=== PATIENT | female | born 1980 | race Caucasian/White ===

== ENCOUNTER 2019-02-21 18:38 | Emergency (ER) | payer SELFPAY ==
--- NOTE | 2019-02-21 19:54 | EDPHYS ---
Physician Documentation [facility] Name: Miriam Fried Age: 39 yrs Sex: Female : 1980 Arrival Date: 02/21/2019 Time: 18:40 Bed 28 Private MD: ED Physician Russel Alvarado HPI: 02/21 19:47 This 39 yrs old Female presents to ER via Ambulatory with complaints of Psych gs Problem. 19:47 The patient presents to the emergency department with depression, over unknown gs circumstances, psychosis, has delusions. Onset: The symptoms/episode began/occurred 1 week(s) ago. Past psychiatric history: Prior diagnosis: bipolar disorder, schizophrenia. Associated signs and symptoms: Pertinent negatives: hallucinations, homicidal ideation, suicide ideation. Associated signs and symptoms: Pertinent positives; homelessness. Severity of symptoms: At their worst the symptoms were moderate in the emergency department the symptoms are unchanged. The patient has experienced similar episodes in the past, multiple times. The patient has not recently seen a physician. 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 - Social history:: Smoking status: Patient uses tobacco products, smokes one pack cigarettes per day. - Ebola Screening: : Patient negative for fever greater than or equal to 101.5 degrees Fahrenheit, and additional compatible Ebola Virus Disease symptoms Patient denies exposure to infectious person Patient denies travel to an Ebola-affected area in the 21 days before illness onset No symptoms or risks identified at this time. ROS: 19:47 All other systems are negative. gs Exam: 19:47 Head/Face: Normocephalic, atraumatic. Eyes: Pupils equal round and reactive to light, gs extra-ocular motions intact. Lids and lashes normal. Conjunctiva and sclera are non-icteric and not injected. Cornea within normal limits. Periorbital areas with no swelling, redness, or edema. ENT: Nares patent. No nasal discharge, no septal abnormalities noted. Tympanic membranes are normal and external auditory canals are clear. Oropharynx with no redness, swelling, or masses, exudates, or evidence of obstruction, uvula midline. Mucous membranes moist. Neck: Trachea midline, no thyromegaly or masses palpated, and no cervical lymphadenopathy. Supple, full range of motion without nuchal rigidity, or vertebral point tenderness. No Meningismus. Chest/axilla: Normal chest wall appearance and motion. Nontender with no deformity. No lesions are appreciated. Cardiovascular: Regular rate and rhythm with a normal S1 and S2. No gallops, murmurs, or rubs. Normal PMI, no JVD. No pulse deficits. Respiratory: Lungs have equal breath sounds bilaterally, clear to auscultation and percussion. No rales, rhonchi or wheezes noted. No increased work of breathing, no retractions or nasal flaring. Abdomen/GI: Soft, non-tender, with normal bowel sounds. No distension or tympany. No guarding or rebound. No evidence of tenderness throughout. Back: No spinal tenderness. No costovertebral tenderness. Full range of motion. Skin: Warm, dry with normal turgor. Normal color with no rashes, no lesions, and no evidence of cellulitis. MS/ Extremity: Pulses equal, no cyanosis. Neurovascular intact. Full, normal range of motion. Neuro: Awake and alert, GCS 15, oriented to person, place, time, and situation. Cranial nerves II-XII grossly intact. Motor strength 5/5 in all extremities. Sensory grossly intact. Cerebellar exam normal. Normal gait. 19:47 Constitutional: The patient appears alert, awake. 19:47 Psych: Behavior/mood is anxious, Affect is calm, Oriented to person, place, time, Patient has no thoughts/intents to harm self or others. Judgement / Insight is impaired. Vital Signs: 19:14 BP 140 / 91; Pulse 108; Resp 16; Temp 98.3(TE); Pulse Ox 98% on R/A; Weight 61.23 kg; iw Height 5 ft. 4 in. (162.56 cm); Pain 0/10; 20:02 BP 135 / 78; Pulse 90; Resp 18; Pulse Ox 100% on R/A; Pain 0/10; mg2 19:14 Body Mass Index 23.17 (61.23 kg, 162.56 cm) iw MDM: 19:25 Patient medically screened. gs 19:47 Differential diagnosis: drug withdrawal. acute psychotic break, depression. Data reviewed: vital signs, nurses notes. Data reviewed: old medical records. Counseling: I had a detailed discussion with the patient and/or guardian regarding: the historical points, exam findings, and any diagnostic results supporting the discharge/admit diagnosis, the need for outpatient follow up, a psychiatrist, pt request med refill. Administered Medications: No medications were administered Disposition: 02/21/19 19:54 Discharged to Home. Impression: Major depressive disorder, recurrent. - Condition is Stable. - Discharge Instructions: Psychosis, Neuropsychological Examination. - Prescriptions for Klonopin 0.5 mg Oral Tablet - take 1 tablet by ORAL route every 12 hours As needed; 15 tablet. Zoloft 50 mg Oral Tablet - take 1 tablet by ORAL route once daily; 30 tablet. - Medication Reconciliation Form, Thank You Letter, Antibiotic Education, Prescription Opioid Use form. - Follow up: Private Physician; When: 2 - 3 days; Reason: Re-evaluation by your physician. Signatures: Gracia Sanz RN RN Russel Alvarado MD MD Aldo Young RN RN mg2 Corrections: (The following items were deleted from the chart) 20:04 19:54 02/21/2019 19:54 Discharged to Home. Impression: Major depressive disorder, mg2 recurrent. Condition is Stable. Forms are Medication Reconciliation Form, Thank You Letter, Antibiotic Education, Prescription Opioid Use. Follow up: Private Physician; When: 2 - 3 days; Reason: Re-evaluation by your physician.
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
[2019-02-21 20:30] VITALS: TEMP 98.3
[2019-02-21 20:32] VITALS: BP 135/78; O2SAT 100
== END 2019-02-21 20:04 | disposition home or self-care (01) ==
LOC: EDBD 18:38 → ER 18:38
DX: F33.9 Major depressive disorder, recurrent, unspecified (principal); F41.9 Anxiety disorder, unspecified; Z88.5 Allergy status to narcotic agent; F90.9 Attention-deficit hyperactivity disorder, unspecified type; F17.210 Nicotine dependence, cigarettes, uncomplicated
CPT/HCPCS: 99282

== ENCOUNTER 2019-04-12 02:14 | Emergency (ER) | payer SELFPAY ==
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
--- NOTE | 2019-04-12 02:30 | EDPHYS ---
Physician Documentation [facility] Name: Miriam Fried Age: 39 yrs Sex: Female : 1980 Arrival Date: 04/12/2019 Time: 02:15 Bed 5 Private MD: ED Physician Felipe Manning HPI: 04/12 02:16 This 39 yrs old Female presents to ER via Unassigned with complaints of ma2 Irregular Pulse. 02:16 The patient presents with a history of irregular heart beat. Onset: The ma2 symptoms/episode began/occurred gradually, 1 hour(s) ago. Duration: The patient or guardian reports a single episode. Associated signs and symptoms: Pertinent negatives: chest pain, fever, SOB, near-syncope, vertigo. Severity of symptoms: At their worst the symptoms were mild in the emergency department the symptoms have improved. The patient has experienced similar episodes in the past. 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 - Social history:: Patient/guardian denies using alcohol, street drugs, The patient lives [facility]. Smoking status: Patient uses tobacco products, smokes one-half pack cigarettes per day. - Ebola Screening: : Patient negative for fever greater than or equal to 101.5 degrees Fahrenheit, and additional compatible Ebola Virus Disease symptoms Patient denies exposure to infectious person Patient denies travel to an Ebola-affected area in the 21 days before illness onset No symptoms or risks identified at this time. ROS: 02:16 Constitutional: Negative for fever, chills, and weight loss. ma2 02:16 Cardiovascular: Positive for palpitations, Negative for chest pain, edema, orthopnea. 02:16 All other systems are negative. Exam: 02:16 Constitutional: This is a well developed, well nourished patient who is awake, alert, ma2 and in no acute distress. Head/Face: Normocephalic, atraumatic. Neck: Trachea midline, no thyromegaly or masses palpated, and no cervical lymphadenopathy. Supple, full range of motion without nuchal rigidity, or vertebral point tenderness. No Meningismus. Chest/axilla: Normal chest wall appearance and motion. Nontender with no deformity. No lesions are appreciated. Cardiovascular: Regular rate and rhythm with a normal S1 and S2. No gallops, murmurs, or rubs. Normal PMI, no JVD. No pulse deficits. Respiratory: Lungs have equal breath sounds bilaterally, clear to auscultation and percussion. No rales, rhonchi or wheezes noted. No increased work of breathing, no retractions or nasal flaring. Abdomen/GI: Soft, non-tender, with normal bowel sounds. No distension or tympany. No guarding or rebound. No evidence of tenderness throughout. MS/ Extremity: Pulses equal, no cyanosis. Neurovascular intact. Full, normal range of motion. Neuro: Awake and alert, GCS 15, oriented to person, place, time, and situation. Cranial nerves II-XII grossly intact. Motor strength 5/5 in all extremities. Sensory grossly intact. Cerebellar exam normal. Normal gait. Vital Signs: 02:18 BP 121 / 75; Pulse 93; Resp 16; Temp 98.1(O); Pulse Ox 98% on R/A; Weight 68.04 kg; ed1 Height 5 ft. 4 in. (162.56 cm); 02:49 BP 123 / 76; Pulse 89; Resp 16; Pulse Ox 97% on R/A; Pain 0/10; aa1 02:18 Body Mass Index 25.75 (68.04 kg, 162.56 cm) ed1 MDM: 02:15 Patient medically screened. ma2 02:16 Differential diagnosis: arrythmia, dehydration, stress disorder. Data reviewed: vital ma2 signs, nurses notes. Counseling: I had a detailed discussion with the patient and/or guardian regarding: the historical points, exam findings, and any diagnostic results supporting the discharge/admit diagnosis, the presence of at least one elevated blood pressure reading (>120/80) during this emergency department visit, the need for outpatient follow up. Response to treatment: the patient's symptoms have resolved after treatment. 04/12 02:16 Order name: EKG - Nurse/Tech; Complete Time: 02:33 ma2 Administered Medications: 02:25 Drug: Ativan 2 mg Route: PO; aa1 02:49 Follow up: Response: No adverse reaction; Medication administered at discharge. aa1 02:36 Drug: Metoprolol 25 mg Route: PO; aa1 02:48 Follow up: Response: No adverse reaction; Medication administered at discharge. aa1 Disposition: 04/12/19 02:29 Discharged to Home. Impression: Palpitations. - Condition is Stable. - Discharge Instructions: Palpitations. - Medication Reconciliation Form, Thank You Letter, Antibiotic Education, Prescription Opioid Use form. - Follow up: Private Physician; When: Tomorrow; Reason: Continuance of care. Signatures: Huma Byrne RN RN aa1 Cherry Knox RN RN ed1 Felipe Manning MD MD ma2 Corrections: (The following items were deleted from the chart) 02:50 02:29 04/12/2019 02:29 Discharged to Home. Impression: Palpitations. Condition is aa1 Stable. Forms are Medication Reconciliation Form, Thank You Letter, Antibiotic Education, Prescription Opioid Use. Follow up: Private Physician; When: Tomorrow; Reason: Continuance of care. ma2
[2019-04-12] MEDS ORDERED: LORAZEPAM 1 MG TABLET ONE (02:34)
[2019-04-12] MEDS ORDERED: METOPROLOL TAR 25 MG TAB ONE (02:50)
[2019-04-12 08:25] VITALS: BP 123/76; O2SAT 97
[2019-04-12 08:27] VITALS: TEMP 98.1
== END 2019-04-12 02:50 | disposition home or self-care (01) ==
LOC: ER 02:14
DX: R00.2 Palpitations (principal); F41.9 Anxiety disorder, unspecified; F32.9 Major depressive disorder, single episode, unspecified; F90.9 Attention-deficit hyperactivity disorder, unspecified type; F17.210 Nicotine dependence, cigarettes, uncomplicated
CPT/HCPCS: 99284

== ENCOUNTER 2019-04-12 05:10 | Emergency (ER) | payer SELFPAY ==
[2019-04-12 07:51] LABS: Absolute Lymphocytes (CBC) 2.3 K/uL (0.7-4.9); Absolute Monocytes 0.6 K/uL (0.1-1.3); Absolute Neutrophil 5.8 K/uL (1.8-8.0); Basophils % 0.5 % (0-1.3); Eosinophils % 4.2 % (0-4.4); Hematocrit 34.9 % (36.0-45.0); Lymphocytes % 25.3 % (15.3-44.8); Monocytes % 6.6 % (3.3-12.3); RBC Red Blood Cell Count 3.79 M/uL (3.86-4.86)
[2019-04-12 08:03] LABS: Protime INR 0.92
[2019-04-12 08:12] LABS: ALT/SGPT 18 U/L (12-78); AST/SGOT 14 U/L (15-37); Albumin 3.6 g/dL (3.4-5.0); Alkaline Phosphatase 86 U/L (45-117); BUN Blood Urea Nitrogen 12 mg/dL (7-18); Bicarbonate 28 mmol/L (21-32); Bilirubin Direct < 0.1 mg/dL (0-0.2); Bilirubin Total 0.2 mg/dL (0.2-1.0); Glucose Level 100 mg/dL (74-106); Potassium 3.6 mmol/L (3.5-5.1); Protein, Total 6.8 g/dL (6.4-8.2); Sodium Level 141 mmol/L (136-145)
[2019-04-12] MEDS ORDERED: ZIPRASIDONE MESYLA 20 MG/VIAL IM ONE ×2 (09:24→09:29)
[2019-04-12] MEDS ORDERED: WATER FOR INJ,STERILE 0 ML ONE (09:29)
--- NOTE | 2019-04-12 12:04 | EKG ---
Test Date: 2019-04-12 Test Time: 02:25:48 Enforcement Officer: GABRIELLE MEASUREMENT RESULTS: Intervals: Rate: 94 UT: 132 QRSD: 76 QT: 370 QTc: 462 [place]: P: 76 UT: 132 QRS: 65 T: 46 INTERPRETIVE STATEMENTS: Normal sinus rhythm Septal infarct, age undetermined Abnormal ECG Compared to ECG 09/15/2011 13:48:15 Myocardial infarct finding now present Short UT interval no longer present Electronically Signed On 04-12-19 12:02:24 CDT by Steven Oh
[2019-04-12] MEDS ORDERED: LORAZEPAM 1 MG TABLET ONE (17:27)
--- NOTE | 2019-04-12 19:57 | EDPHYS ---
Physician Documentation [facility] Name: Miriam Fried Age: 39 yrs Sex: Female : 1980 Arrival Date: 04/12/2019 Time: 05:20 Bed 14 Private MD: ED Physician Myles Jalloh HPI: 04/12 05:22 This 39 yrs old Female presents to ER via Unassigned with complaints of ma2 suicidal ideation. 05:22 Onset: The symptoms/episode began/occurred suddenly, 1 hour(s) ago. Severity of ma2 symptoms: At their worst the symptoms were mild in the emergency department the symptoms are unchanged. The patient has not experienced similar symptoms in the past. patient was arrested today by police and was in er 30 mi ago for palpitation and vertigo was treated for that and discharged, she stated before being released that she is suicidal now, i send her back to custodial to be evaluated by custodial psychiatrist however she was returned back by police who states there is no custodial psychiatrist available at this time and they can not take her back.. patient has passive si, started 10 min while in the er during her earlier visit after i told her she is being discharged. she states she has been diagnosed with schizoaffective disorder, no si in past no plan no gun at home . 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 - Social history:: Patient/guardian denies using alcohol, street drugs, The patient lives Smoking status: Patient uses tobacco products, smokes one pack cigarettes per day. - Family history:: not pertinent. - Ebola Screening: : No symptoms or risks identified at this time. ROS: 05:22 Constitutional: Negative for fever, chills, and weight loss, Cardiovascular: Negative ma2 for chest pain, palpitations, and edema. 05:22 Psych: Positive for anxiety, suicidal ideation, Negative for alcohol dependence, visual hallucinations, homicidal ideation. 05:22 All other systems are negative. Exam: 05:22 Constitutional: This is a well developed, well nourished patient who is awake, alert, ma2 and in no acute distress. Chest/axilla: Normal chest wall appearance and motion. Nontender with no deformity. No lesions are appreciated. Cardiovascular: Regular rate and rhythm with a normal S1 and S2. No gallops, murmurs, or rubs. Normal PMI, no JVD. No pulse deficits. Respiratory: Lungs have equal breath sounds bilaterally, clear to auscultation and percussion. No rales, rhonchi or wheezes noted. No increased work of breathing, no retractions or nasal flaring. Abdomen/GI: Soft, non-tender, with normal bowel sounds. No distension or tympany. No guarding or rebound. No evidence of tenderness throughout. Skin: Warm, dry with normal turgor. Normal color with no rashes, no lesions, and no evidence of cellulitis. MS/ Extremity: Pulses equal, no cyanosis. Neurovascular intact. Full, normal range of motion. Neuro: Awake and alert, GCS 15, oriented to person, place, time, and situation. Cranial nerves II-XII grossly intact. Motor strength 5/5 in all extremities. Sensory grossly intact. Cerebellar exam normal. Normal gait. Psych: Awake, alert, with orientation to person, place and time. Behavior, mood, and affect are within normal limits. 19:55 Psych: Behavior/mood is pleasant, cooperative, Affect is calm, Oriented to person, deisy place, time, Patient has no thoughts/intents to harm self or others. Judgement / Insight is normal. Memory is normal. Delusions/hallucinations not suicidal , not homicidal, . Vital Signs: 05:10 BP 113 / 61; Pulse 78; Resp 18; Temp 97.7; Pulse Ox 100% on R/A; Weight 68.04 kg; ea Height 5 ft. 4 in. (162.56 cm); Pain 0/10; 09:00 BP 124 / 63; Pulse 72; Resp 18; Temp 97.6(O); Pulse Ox 99% on R/A; kj1 15:00 BP 127 / 75; Pulse 81; Resp 16; Temp 97.8(TE); Pulse Ox 99% on R/A; Pain 0/10; dh3 19:00 BP 125 / 72; Pulse 75; Resp 16; Temp 97.9; Pulse Ox 99% ; Pain 0/10; jp3 05:10 Body Mass Index 25.75 (68.04 kg, 162.56 cm) ea MDM: 05:21 Patient medically screened. ma2 05:22 Differential Diagnosis passive SI. Data reviewed: vital signs, nurses notes. ma2 Counseling: I had a detailed discussion with the patient and/or guardian regarding: the historical points, exam findings, and any diagnostic results supporting the discharge/admit diagnosis, the presence of at least one elevated blood pressure reading (>120/80) during this emergency department visit. 04/12 05:22 Order name: Acetaminophen [facility] 04/12 05:22 Order name: Basic Metabolic Panel [facility] 04/12 05:22 Order name: CBC with Diff; Complete Time: 19:54 [facility] 04/12 05:22 Order name: ETOH Level; Complete Time: 19:54 in2 04/12 05:22 Order name: Hepatic Function; Complete Time: 19:54 [facility] 04/12 05:22 Order name: PT-INR; Complete Time: 19:54 in2 04/12 05:22 Order name: Ptt, Activated; Complete Time: 19:54 in2 04/12 05:22 Order name: Salicylate; Complete Time: 19:54 [facility] 04/12 05:24 Order name: Acetaminophen Level; Complete Time: 19:54 EDFL 04/12 05:25 Order name: Basic Metabolic Panel; Complete Time: 09:08 EDMS 04/12 09:08 Interpretation: Normal except: CL 108; CRE 0.54. tw4 04/12 05:22 Order name: EKG; Complete Time: 05:25 in2 04/12 05:22 Order name: IV Saline Lock; Complete Time: 07:36 ma2 04/12 05:22 Order name: Labs collected and sent; Complete Time: 07:36 in2 04/12 07:33 Order name: Diet Finger Food; Complete Time: 07:34 kj1 Administered Medications: 09:15 Not Given (Patient Refused): Effexor XR 30 mg PO once iw 09:31 Drug: Geodon 20 mg Route: IM; Site: right deltoid; iw 09:55 Follow up: Response: No adverse reaction; Anxiety decreased rb1 09:33 Not Given (Duplicate Order): Geodon 10 mg IM once iw 17:13 Drug: Ativan 1 mg Route: PO; rb1 18:00 Follow up: Response: No adverse reaction; Anxiety decreased rb1 Disposition: 04/12/19 19:56 Discharged to Home. Impression: Anxiety disorder, unspecified. - Condition is Stable. - Discharge Instructions: Generalized Anxiety Disorder. - Medication Reconciliation Form, Thank You Letter, Antibiotic Education, Prescription Opioid Use form. - Follow up: Private Physician; When: 2 - 3 days; Reason: Recheck today's complaints, Continuance of care, Re-evaluation by your physician. - Problem is new. - Symptoms have improved. Signatures: Dispatcher [employer] [facility] Myles Jalloh MD MD cha Williams, Irene, RN RN iw Luke, MARY Vela RN rb1 Erik Moreno RN RN jb4 Katarzyna Morton RN RN ea Alzahri, Mohammad, MD MD ma2 Branden Small MD MD tw4 Corrections: (The following items were deleted from the chart) 20:01 05:25 URINE DRUG SCREEN+CHEM UR.LAB.BRZ ordered. [facility] 20:13 19:56 04/12/2019 19:56 Discharged to Home. Impression: Anxiety disorder, unspecified. jb4 Condition is Stable. Discharge Instructions: Generalized Anxiety Disorder. Forms are Medication Reconciliation Form, Thank You Letter, Antibiotic Education, Prescription Opioid Use. Follow up: Private Physician; When: 2 - 3 days; Reason: Recheck today's complaints, Continuance of care, Re-evaluation by your physician. Problem is new. Symptoms have improved. deisy
--- NOTE | 2019-04-12 19:57 | ER ---
Nurse's Notes [facility] Name: Miriam Fried Age: 39 yrs Sex: Female : 1980 Arrival Date: 04/12/2019 Time: 05:20 Bed 14 Private MD: Diagnosis: Anxiety disorder, unspecified Presentation: 04/12 05:10 Presenting complaint: Patient states: Pt brought in by PD. Pt reports she has been ea hearing voices, feels anxious and feels like she wants to hurt herself. Transition of care: patient was not received from another setting of care. Onset of symptoms was April 12, 2019. Risk Assessment: Do you want to hurt yourself or someone else? Patient reports no desire to harm self or others. Initial Sepsis Screen: Does the patient meet any 2 criteria? No. Patient's initial sepsis screen is negative. Does the patient have a suspected source of infection? No. Patient's initial sepsis screen is negative. Care prior to arrival: None. 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 - Social history:: Patient/guardian denies using alcohol, street drugs, The patient lives Smoking status: Patient uses tobacco products, smokes one pack cigarettes per day. - Family history:: not pertinent. - Ebola Screening: : No symptoms or risks identified at this time. Screenin:23 Abuse screen: Denies threats or abuse. Nutritional screening: No deficits noted. ea Tuberculosis screening: No symptoms or risk factors identified. Fall Risk None identified. Assessment: 05:10 General: Appears in no apparent distress. Behavior is calm, cooperative, appropriate ea for age. Pain: Denies pain. Neuro: Level of Consciousness is awake, alert, obeys commands, Oriented to person, place, time, situation. Cardiovascular: Patient's skin is warm and dry. Respiratory: Airway is patent Respiratory effort is even, unlabored, Respiratory pattern is regular, symmetrical. GI: Abdomen is non-distended. Derm: Skin is pink, warm \\T\\ dry. Musculoskeletal: Circulation, motion, and sensation intact. 05:18 Reassessment: Pt attempting to walk to other pt's room, attempts to redirect pt to room ea failed, pt refusing to stay in room. Charge nurse notified. Pt returned to room. 05:19 Reassessment: Pt screaming at staff, refusing to keep gown on "I need to go outside I ea need a fucking cigarette, my mother is going to bring me keys and I need to go out". PD at bedside redirected pt to room. 05:45 Reassessment: Pt yelling at staff, refusing to stay in the room. "I am not staying in ea this fucking room!" PD at bedside, pt yelling at PD. 06:09 Reassessment: Patient and/or family updated on plan of care and expected duration. Pain ea level reassessed. Pt resting on stretcher. Respirations even and unlabored. Chest expansions even and symmetrical. 06:14 Reassessment: Patient and/or family updated on plan of care and expected duration. Pain ea level reassessed. Provider at bedside speaking to pt. 06:30 Reassessment: Patient and/or family updated on plan of care and expected duration. Pain ea level reassessed. Pt agreed to medical care, [place] [employer] left, reported if their assistance was needed to call. 07:06 General: Appears in no apparent distress. comfortable, Behavior is calm. Pain: Denies rb1 pain. Neuro: Level of Consciousness is awake, alert, obeys commands, Oriented to person, place, time, situation. Cardiovascular: Capillary refill < 3 seconds is brisk in bilateral fingers. Respiratory: Airway is patent Respiratory effort is even, unlabored, Respiratory pattern is regular, symmetrical. GI: No signs and/or symptoms were reported involving the gastrointestinal system. : No signs and/or symptoms were reported regarding the genitourinary system. Derm: Skin is pink, warm \\T\\ dry. Musculoskeletal: Range of motion: intact in all extremities. 07:20 Reassessment: Pt. is getting agitated and demanding to go smoke and is threatening to rb1 leave. Provider notified. 07:45 Reassessment: Pt. denies being suicidal. She stated, "I'm not really suicidal, I just rb1 said that at the half-way because I didn't want to go in the cell. My friend over there. I have a history of A-fib and I'm afraid that they won't check to make sure I'm ok if I'm in half-way." Dr. Small spoke with the pt. and explained that she is not allowed to leave at this time because she is being detained by the police department and they brought her here. It was explained to the pt. that if she tries to leave we're required to call the police and she will be arrested. Pt. verbalized understanding. 08:02 Reassessment: [facility] is at the pt. bedside. rb1 08:44 Reassessment: Called dietary for an update on pt. breakfast tray, they were working on rb1 four trays and they will be here in a little bit. 09:10 Reassessment: Pt. refused the Geodon and the Effexor. She stated, "I'm not taking rb1 either of them. I want to go home." Provider notified. 10:00 Reassessment: Patient appears in no apparent distress at this time. Pt. is resting with rb1 eyes closed, respirations even, unlabored. Bed in low, locked position. Sitter at bedside. 11:00 Reassessment: Patient appears in no apparent distress at this time. Pt. is resting with rb1 eyes closed, respirations even, unlabored. Pt. responds when spoken to. 12:00 Reassessment: Patient appears in no apparent distress at this time. No changes from rb1 previously documented assessment. 13:00 Reassessment: Patient appears in no apparent distress at this time. Pt. is still rb1 resting with eyes, closed. Respirations even, unlabored. Pt. is repositioning herself unassisted. 14:00 Reassessment: Patient appears in no apparent distress at this time. No changes from rb1 previously documented assessment. sitter continues to remain at bedside. 15:00 Reassessment: Patient appears in no apparent distress at this time. Pt. woke up and is rb1 currently eating at the bedside. 15:12 Reassessment: Pt. is requesting to go home. I spoke with the pt. and explained that we rb1 were not able to discharge her at this time because we believe that she may be a danger to herself and if she tried to leave that we are required to call the police because she has a warrant. Pt. verbalized understanding, behavior is calm and cooperative at this time. She requested to have her phone back so she could call work, provider notified. 16:12 Reassessment: Patient appears in no apparent distress at this time. Pt. is resting with rb1 eyes closed, respirations even, unlabored. Bed in low, locked position. 17:10 Reassessment: Patient appears in no apparent distress at this time. Patient and/or rb1 family updated on plan of care and expected duration. Pain level reassessed. Patient is alert, oriented x 3, equal unlabored respirations, skin warm/dry/pink. Patient denies pain at this time. 18:10 Reassessment: Patient appears in no apparent distress at this time. No changes from rb1 previously documented assessment. 19:00 Reassessment: Patient appears in no apparent distress at this time. Patient and/or jb4 family updated on plan of care and expected duration. Pain level reassessed. PT is resting in bed with eyes closed respirations even and unlabored. General: Appears in no apparent distress. comfortable. 19:49 Reassessment: Provider is at the bedside. jb4 20:10 Reassessment: Patient appears in no apparent distress at this time. Patient and/or jb4 family updated on plan of care and expected duration. Pain level reassessed. Patient is alert, oriented x 3, equal unlabored respirations, skin warm/dry/pink. Pt discharged home, denies wanting to harm herself or others. Asked to wait in ED room until ride arrived, pt refused. Psych: 07:06 Safety Checks: Personal items have been removed. Door is open. No visitors are present rb1 at this time. 07:06 Subjective: Patient's mood is calm. Objective: Patient is cooperative, Speech is rb1 normal, Affect is appropriate. Interventions: Removed personal items and placed in bag. Patient placed in hospital gown. Belonging list filled out. Suicide Risk Assessment: Sad Person Scale: Sex of patient: Female: Score 0 points. Age of patient: Score 0 point if patient falls outside of specified age parameters. Depression: Score 0 point if signs of depression are not present. Previous Attempt: Score 0 point if patient has not previously attempted suicide. Substance Abuse: Score 0 point if patient does not abuse alcohol or drugs. Rational Thinking: Score 1 point if patient is lacking rational thinking. Social Support: Score 1 point if social support is lacking and/or unavailable. Organized Plan: Score 0 if patient did not have an organized plan in place. Relationship: Score 1 point if patient is , , , or for a single male Chronic Sickness: Score 1 point if patient has illness, chronic, debilitating, or severe. TOTAL POINTS: If total points are 3-4, proposed clinical action is close follow-up/consider hospitalization. Pt denies substance abuse. Commitment: Patient will be an involuntary commitment. Vital Signs: 05:10 BP 113 / 61; Pulse 78; Resp 18; Temp 97.7; Pulse Ox 100% on R/A; Weight 68.04 kg; ea Height 5 ft. 4 in. (162.56 cm); Pain 0/10; 09:00 BP 124 / 63; Pulse 72; Resp 18; Temp 97.6(O); Pulse Ox 99% on R/A; kj1 15:00 BP 127 / 75; Pulse 81; Resp 16; Temp 97.8(TE); Pulse Ox 99% on R/A; Pain 0/10; dh3 19:00 BP 125 / 72; Pulse 75; Resp 16; Temp 97.9; Pulse Ox 99% ; Pain 0/10; jp3 05:10 Body Mass Index 25.75 (68.04 kg, 162.56 cm) ea ED Course: 05:10 Patient has correct armband on for positive identification. Placed in gown. Bed in low ea position. Call light in reach. Valuables inventory done. given to security. Personal items removed. 05:10 Arm band placed on right wrist. Patient placed in an exam room, on a stretcher. ea 05:15 Safety checks: Items removed: yes. Door open/sign placed on door: yes. Family/friend ag4 present: no. Sitter present: Yes. 05:20 Patient arrived in ED. ea 05:21 Felipe Manning MD is Attending Physician. ma2 05:30 Safety checks: Items removed: yes. Door open/sign placed on door: yes. Family/friend ag4 present: no. Sitter present: Yes. 05:44 Katarzyna Morton RN is Primary Nurse. ea 05:45 Safety checks: Items removed: yes. Door open/sign placed on door: yes. Family/friend ag4 present: no. Sitter present: Yes. 05:55 Triage completed. ea 06:00 Safety checks: Items removed: yes. Door open/sign placed on door: yes. Family/friend ag4 present: no. Sitter present: Yes. 06:15 Safety checks: Items removed: yes. Door open/sign placed on door: yes. Family/friend ag4 present: no. Sitter present: Yes. 06:15 Safety checks: Items removed:. ag4 06:30 Safety checks: Items removed: yes. Door open/sign placed on door: yes. Family/friend ag4 present: no. Sitter present: Yes. 06:45 Safety checks: Items removed: yes. Door open/sign placed on door: yes. Family/friend ag4 present: no. Sitter present: Yes. 07:00 Safety checks: Items removed: yes. Door open/sign placed on door: yes. Family/friend kj1 present: no. Sitter present: Yes. 07:05 Report given to Mirian HERNANDEZ. ea 07:15 Safety checks: Items removed: yes. Door open/sign placed on door: yes. Family/friend kj1 present: no. Sitter present: Yes. 07:30 Safety checks: Items removed: yes. Door open/sign placed on door: yes. Family/friend kj1 present: no. Sitter present: Yes. 07:45 Safety checks: Items removed: yes. Door open/sign placed on door: yes. Family/friend kj1 present: no. Sitter present: Yes. 08:00 Safety Checks: Personal items have been removed. The door is open or patient has been rb1 placed in a hallway bed/chair. Sitter present at this time. 08:00 Safety checks: Items removed: yes. Door open/sign placed on door: yes. Family/friend kj1 present: no. Sitter present: Yes. 08:15 Safety checks: Items removed: yes. Door open/sign placed on door: yes. Family/friend kj1 present: no. Sitter present: Yes. 08:30 Safety checks: Items removed: yes. Door open/sign placed on door: yes. Family/friend kj1 present: no. Sitter present: Yes. 08:45 Safety checks: Items removed: yes. Door open/sign placed on door: yes. Family/friend kj1 present: no. Sitter present: Yes. 09:00 Safety checks: Items removed: yes. Door open/sign placed on door: yes. Family/friend kj1 present: no. Sitter present: Yes. 09:06 Attending Physician role handed off by Felipe Manning MD tw4 09:06 Branden Small MD is Attending Physician. tw4 09:15 Safety checks: Items removed: yes. Door open/sign placed on door: yes. Family/friend kj1 present: no. Sitter present: Yes. 09:30 Safety checks: Items removed: yes. Door open/sign placed on door: yes. Family/friend kj1 present: no. Sitter present: Yes. 09:45 Safety checks: Items removed: yes. Door open/sign placed on door: yes. Family/friend kj1 present: no. Sitter present: Yes. 10:00 Safety checks: Items removed: yes. Door open/sign placed on door: yes. Family/friend kj1 present: no. Sitter present: Yes. 10:15 Safety checks: Items removed: yes. Door open/sign placed on door: yes. Family/friend kj1 present: no. Sitter present: Yes. 10:30 Safety checks: Items removed: yes. Door open/sign placed on door: yes. Family/friend kj1 present: yes. no. Sitter present: Yes. 10:45 Safety checks: Items removed: yes. Door open/sign placed on door: yes. Family/friend kj1 present: no. Sitter present: Yes. 11:00 Safety checks: Items removed: yes. Door open/sign placed on door: yes. Family/friend kj1 present: no. Sitter present: Yes. 11:15 Safety checks: Items removed: yes. Door open/sign placed on door: yes. Family/friend dh3 present: no. Sitter present: Yes. 11:30 Safety checks: Items removed: yes. Door open/sign placed on door: yes. Family/friend dh3 present: no. Sitter present: Yes. 11:45 Safety checks: Items removed: yes. Door open/sign placed on door: yes. Family/friend dh3 present: no. Sitter present: Yes. 12:00 Safety checks: Items removed: yes. Door open/sign placed on door: yes. Family/friend dh3 present: no. Sitter present: Yes. 12:15 Safety checks: Items removed: yes. Door open/sign placed on door: yes. Family/friend dh3 present: no. Sitter present: Yes. 12:30 Safety checks: Items removed: yes. Door open/sign placed on door: yes. Family/friend kj1 present: no. Sitter present: Yes. 12:45 Safety checks: Items removed: yes. Door open/sign placed on door: yes. Family/friend dh3 present: no. Sitter present: Yes. 13:00 Safety checks: Items removed: yes. Door open/sign placed on door: yes. Family/friend dh3 present: no. Sitter present: Yes. 13:15 Safety checks: Items removed: yes. Door open/sign placed on door: yes. Family/friend dh3 present: no. Sitter present: Yes. 13:30 Safety checks: Items removed: yes. Door open/sign placed on door: yes. Family/friend dh3 present: no. Sitter present: Yes. 13:45 Safety checks: Items removed: yes. Door open/sign placed on door: yes. Family/friend dh3 present: no. Sitter present: Yes. 14:00 Safety checks: Items removed: yes. Door open/sign placed on door: yes. Family/friend dh3 present: no. Sitter present: Yes. 14:15 Safety checks: Items removed: yes. Door open/sign placed on door: yes. Family/friend dh3 present: no. Sitter present: Yes. 14:30 Safety checks: Items removed: yes. Door open/sign placed on door: yes. Family/friend dh3 present: no. Sitter present: Yes. 14:45 Safety checks: Items removed: yes. Door open/sign placed on door: yes. Family/friend dh3 present: no. Sitter present: Yes. 14:53 faxed chart to [facility], [facility], [facility], [facility] and [facility]. 14:56 talked to [facility], pt is on waiting list, [facility] beds are full for the bd day, possible discharges tomorrow. 15:00 Safety checks: Items removed: yes. Door open/sign placed on door: yes. Family/friend dh3 present: no. Sitter present: Yes. 15:15 Safety checks: Items removed: yes. Door open/sign placed on door: yes. Family/friend dh3 present: no. Sitter present: Yes. 15:30 Safety checks: Items removed: yes. Door open/sign placed on door: yes. Family/friend dh3 present: no. Sitter present: Yes. 15:45 Safety checks: Items removed: yes. Door open/sign placed on door: yes. Family/friend dh3 present: no. Sitter present: Yes. 16:00 Safety checks: Items removed: yes. Door open/sign placed on door: yes. Family/friend dh3 present: no. Sitter present: Yes. 16:15 Safety checks: Items removed: yes. Door open/sign placed on door: yes. Family/friend jp3 present: no. Sitter present: Yes. 16:30 Safety checks: Items removed: yes. Door open/sign placed on door: yes. Family/friend jp3 present: no. Sitter present: Yes. 16:45 Safety checks: Items removed: yes. Door open/sign placed on door: yes. Family/friend jp3 present: no. Sitter present: Yes. 17:00 Safety checks: Items removed: yes. Door open/sign placed on door: yes. Family/friend jp3 present: no. Sitter present: Yes. 17:15 Safety checks: Items removed: yes. Door open/sign placed on door: yes. Family/friend jp3 present: no. Sitter present: Yes. 17:30 Safety checks: Items removed: yes. Door open/sign placed on door: yes. Family/friend jp3 present: no. Sitter present: Yes. 17:45 Safety checks: Items removed: yes. Door open/sign placed on door: yes. Family/friend jp3 present: no. Sitter present: Yes. Warm blanket given. Pillow given. Diet tray given. Diet: Patient given a regular meal tray. Patient given water. Tolerated poorly. 18:00 Safety Checks: Personal items have been removed. The door is open or patient has been rb1 placed in a hallway bed/chair. There are no family/friend visitors at this time Sitter present at this time. 18:00 Safety checks: Items removed: yes. Door open/sign placed on door: yes. Family/friend jp3 present: no. Sitter present: Yes. 18:03 Lights dimmed. patient washedoff with bath wipes. fresh gown given . jp3 18:15 Safety Checks: Personal items have been removed. The door is open or patient has been rb1 placed in a hallway bed/chair. There are no family/friend visitors at this time Sitter present at this time. 18:15 Safety checks: Items removed: yes. Door open/sign placed on door: yes. Family/friend jp3 present: no. Sitter present: Yes. 18:30 Safety checks: Items removed: yes. Door open/sign placed on door: yes. Family/friend jp3 present: no. Sitter present: Yes. 18:45 Safety checks: Items removed: yes. Door open/sign placed on door: yes. Family/friend jp3 present: no. Sitter present: Yes. 19:00 Safety checks: Items removed: yes. Door open/sign placed on door: yes. Family/friend jp3 present: no. Sitter present: Yes. 19:00 Report given to MARY Madera. rb1 19:15 Safety checks: Items removed: yes. Door open/sign placed on door: yes. Family/friend jp3 present: no. Sitter present: Yes. 19:30 Safety checks: Items removed: yes. Door open/sign placed on door: yes. Family/friend jp3 present: no. Sitter present: Yes. 19:45 Safety Checks: Personal items have been removed. The door is open or patient has been jb4 placed in a hallway bed/chair. There are no family/friend visitors at this time Sitter present at this time. 19:53 Attending Physician role handed off by Branden Small MD cha 19:53 Myles Jalloh MD is Attending Physician. [facility] 20:10 No provider procedures requiring assistance completed. Patient did not have IV access jb4 during this emergency room visit. Administered Medications: 09:15 Not Given (Patient Refused): Effexor XR 30 mg PO once iw 09:31 Drug: Geodon 20 mg Route: IM; Site: right deltoid; iw 09:55 Follow up: Response: No adverse reaction; Anxiety decreased rb1 09:33 Not Given (Duplicate Order): Geodon 10 mg IM once iw 17:13 Drug: Ativan 1 mg Route: PO; rb1 18:00 Follow up: Response: No adverse reaction; Anxiety decreased rb1 Outcome: 19:56 Discharge ordered by . deisy 20:10 Discharged to home ambulatory, with friend. jb4 20:10 Condition: stable 20:10 Discharge instructions given to patient, Instructed on discharge instructions, follow up and referral plans. Demonstrated understanding of instructions, follow-up care. 20:13 Patient left the ED. jb4 Signatures: Lily Gutierrez Corey, MD MD cha Williams, Irene RN MARY Mirian Butler, RN RN Erik Yang RN RN jb4 Kathy Perera 3 Katarzyna Morton RN RN ea Alzahri, Mohammad, MD MD ma2 Wadley, Terrence, MD MD tw4 Blaine Elmore Adan ag4 Jackson, Kandis kj1 Corrections: (The following items were deleted from the chart) 06:22 06/10 05:47 Reassessment: Pt yelling at staff, refusing to stay in the room. "I am not ea staying in this fucking room!" PD at bedside, pt yelling at PD. Provider notified. ea 04/12 06:27 05:10 Presenting complaint: Patient states: Pt reports she has been hearing voices, ea feels anxious and feels like she wants to hurt herself. bronson 08:49 07:30 Safety checks: Items removed: yes. Door open/sign placed on door: yes. kj1 Family/friend present: yes. no. Sitter present: Yes. kj1 08:52 07:30 Safety checks: Items removed: yes. Door open/sign placed on door: yes. kj1 Family/friend present: yes. no. Sitter present: Yes. kj1 08:52 07:30 Safety checks: Items removed: yes. Door open/sign placed on door: yes. kj1 Family/friend present: yes. no. Sitter present: Yes. kj1 08:53 08:30 Safety checks: Items removed: yes. Door open/sign placed on door: yes. kj1 Family/friend present: yes. no. Sitter present: Yes. kj1 08:53 07:30 Safety checks: Items removed: yes. Door open/sign placed on door: yes. kj1 Family/friend present: yes. no. Sitter present: Yes. kj1 10:54 10:44 Safety checks: Items removed: yes. Door open/sign placed on door: yes. kj1 Family/friend present: no. Sitter present: Yes. kj1 15:28 15:12 Reassessment: Pt. is requesting to go home. I spoke with the pt. and explained rb1 that we were not able to discharge her at this time because we believe that she may be a danger to herself and if she tried to leave that we are required to call the police because she has a warrant. Pt. verbalized understanding. She requested to have her phone back so she could call work, provider notified. rb1 20:13 20:10 Reassessment: Patient appears in no apparent distress at this time. Patient jb4 and/or family updated on plan of care and expected duration. Pain level reassessed. Patient is alert, oriented x 3, equal unlabored respirations, skin warm/dry/pink. Pt discharged home, denies wanting to harm herself or others. jb4
[2019-04-13 01:31] VITALS: O2SAT 99
[2019-04-13 01:35] VITALS: BP 125/72; TEMP 97.9
== END 2019-04-12 20:13 | disposition home or self-care (01) ==
LOC: ER 05:10
DX: F41.9 Anxiety disorder, unspecified (principal); F32.9 Major depressive disorder, single episode, unspecified; F90.9 Attention-deficit hyperactivity disorder, unspecified type; F17.210 Nicotine dependence, cigarettes, uncomplicated; Z88.5 Allergy status to narcotic agent
CPT/HCPCS: 36415; 80048; 80076; 80320; 80329; 85025; 85610; 85730; 93005; 96372; 99291; 99292; J3486

== ENCOUNTER 2019-06-21 13:31 | Emergency (ER) | payer SELFPAY ==
--- OUTSIDE RECORDS SUMMARY | 2019-06-21 13:34 | XMS REPORT ---
:1980 [facility] Address [address] [place] [address] Dr. Krishnamurthy [address] [place] [id number] Care Team Providers Name Role Phone UNKNOWN, REFFERING Primary Care Provider Unavailable NORMA SIMONS M.D. Unavailable Unavailable Problems This patient has no known problems. Allergies, Adverse Reactions, Alerts This patient has no known allergies or adverse reactions. Medications This patient has no known medications. Results Test Description Test Time Test Comments Text Results Atomic Results Result Comments RPR, Qual 2017-12-30 14:45:00 Test Item Value Reference Range Comments RPR (test code=RPR) Non-Reactive Non-Reactive Thyroid Stimulating Hormone (TSH)2017-12-30 07:29:00 Test Item Value Reference Range Comments TSH (test code=TSH) 2.42 mIU/mL 0.270-4.200 BHCG, Serum, [id number] 07:29:00 Test Item Value Reference Range Comments B hCG, Quant (test <1 mIU/mL Weeks of Gestation Ranges code=BHCGQT) (mIU/mL)3 weeks 5.40 - 72.04 weeks 10.2 - 7085 weeks 217 - 68600 weeks 152 - 904883 weeks 4059 - 1263617 weeks 62267 - 4156668 weeks 23900 - [id number] weeks 12384 - 45874187 weeks 90340 - 62539781 weeks 35755 - 0279308 weeks 60955 - 9277408 weeks 4804 - 3588048 weeks 8240 - 9304047 weeks 9988 - 31299 Lipid [id number] 07:19:00 Test Item Value Reference Range Comments Cholesterol (test 132 mg/dL 0-200 code=CHOL) Triglycerides (test 122 mg/dL 9-200 code=TRIG) HDL (test code=HDL) 21 mg/dL 50-60 Chol/HDL (test 6.3 Ratio 0.0-4.4 code=CHOLPHDL) LDL, Calculated (test 87 0-130 (NOTE)RISK OF HEART code=LDLC) DISEASEPublished by Maltese Heart AssociationAnalyte Optimal Boderline Increased RiskCHOL <200 200-239 >240TRIG <150 150-199 >200HDL Male: >60 <40HDL Female: >60 <50LDL <100 130-159 >160LDL NEAR OPTIMAL IS 100-129 VLDL (test code=VLDL) 24 mg/dL 5-40 LDL/HDL (test code=LDLPHDL) 4 [id number] 04:24:00 Test Item Value Reference Range Comments Amphetamine (test code=AMPH) Negative Negative For diagnostic purposes only, positive results should always be assessedin conjunctionwith the patient's medical history,clinical examination and otherfindings.To fulfill legal requirements, a more specific alternate chemical methodmust be used inorder to obtain a Confirmed analytical result. GC/MS is the preferred confirmatory method. Barbiturates (test code=ARNOLD) Negative Negative Benzodiazepine (test POSITIVE Negative code=MOHINDER) Cocaine (test code=COCA) Negative Negative Methadone (test code=MTHD) Negative Negative Opiates (test code=OPIA) Negative Negative PCP (test code=PCP) Negative Negative Propoxyphene (test Negative Negative code=PROPOX) THC (test code=THC) POSITIVE Negative Urinalysis [id number] 03:47:00 Test Item Value Reference Range Comments Color (test code=COLOR) [place] Yellow,Straw,Pl yellow The value [place] originally released by [employer] on 12/30/2017 03:42 waschanged to [place] by [employer] on 12/30/2017 03:47 Clarity (test code=CLAR) Sl Cloudy Clear The value Clear originally released by [employer] on 12/30/2017 03:42 waschanged to Sl Cloudy by [employer] on 12/30/2017 03:47 Specific [place] (test 1.006 1.001-1.035 code=SPGR) pH (test code=PH) 6.5 5.0-9.0 Ketone (test code=KET) Negative mg/dL Negative Glucose (test Negative mg/dL Negative code=GLUCUR) Protein (test code=PROT) Negative mg/dL Negative Bilirubin (test Negative mg/dL Negative code=BILI) Occult Blood (test Large Negative code=UDOB) Urobilinogen (test 0.2 mg/dL 0.2-1.0 code=UROB) Nitrite (test code=NIT) Negative Negative Leuk Esterase (test Small Negative code=LEUK) Micros Exam (test Indicated code=MEXAM) Epithelial Cells (test None /LPF 0-30 code=EPI) WBC, Urine (test 0-2 /HPF 0-5 code=UWBC) RBC, Urine (test 51-100 /HPF 0-5 code=URBC) Bacteria (test code=BACT) Few /HPF Comprehensive Metabolic [id number] 01:00:00 Test Item Value Reference Range Comments Sodium (test code=NA) 139 mmol/L 135-145 Potassium (test code=K) 3.4 mmol/L 3.5-5.1 Chloride (test code=CL) 101 mmol/L 98-105 Carbon Dioxide (test 28 mmol/L 22-29 code=CO2) Glucose (test code=GLU) 102 mg/dL 70-115 Blood Urea Nitrogen 6 mg/dL 6-20 (test code=BUN) Creatinine (test 0.7 mg/dL 0.5-0.9 code=CREAT) Calcium (test code=CA) 9.4 mg/dL 8.3-10.5 Prot Total (test 6.6 g/dL 6.4-8.3 code=TP) Albumin (test code=ALB) 4.3 g/dL 3.5-5.2 A/G Ratio (test 1.9 Ratio code=AGRATIO) Globulin (test 2.3 2.9-3.1 code=GLOB) Bili Total (test <0.1 mg/dL 0.1-0.9 code=TBIL) Alk Phos (test 84 U/L 35-104 code=APHOS) AST (test code=AST) 16 U/L 1-32 ALT (test code=ALT) 11 U/L 1-33 BUN/Creatinine Ratio 8.6 (test code=BCRATIO) Anion Gap (test 10 mmol/L 7-16 code=AGAP) Estimated GFR (test >60 mL/min/1.73m2 eGFR (estimated Glomerular code=GFR) Filtration Rate) is an estimated value,calculated from the patient's serum creatinine using the MDRD equation.It is NOT the patient's actual GFR. The eGFR provides a more clinicallyuseful measure of kidney disease than serum creatinine alone.This calculation takes sex and race into account, if the informationis provided. If the race is not provided, and the patient isAfrican-Maltese, multiply by 1.212. If sex is not provided, and thepatient is female, multiply by 0.742. Results for patients <18 years ofage have not been validated by the MDRD study and should be interpretedwith caution.eGFR Result Interpretation:eGFR > or=60 is in the Normal RangeeGFR < 60 may mean kidney diseaseeGFR < 15 may mean kidney failureRanges recommended by the National Kidney Foundation,http://nkdep.nih .gov Alcohol/Ethanol, [id number] 01:00:00 Test Item Value Reference Range Comments Alcohol, Ethyl (test <0.01 g/dL 0.00-0.01 Intoxicated 0.080 g/dL or code=ETOH) more CBC with [id number] 00:45:00 Test Item Value Reference Range Comments WBC (test code=WBC) 12.0 K/cumm 4.4-10.5 RBC (test code=RBC) 4.09 M/cumm 3.75-5.20 Hemoglobin (test code=HGB) 12.4 gm/dL 12.2-14.8 Hematocrit (test code=HCT) 38.3 % 36.5-44.4 MCV (test code=MCV) 93.8 fL 80-100 MCH (test code=MCH) 30.4 pg 27.0-32.5 MCHC (test code=MCHC) 32.5 g/dL 32.0-37.5 RDW (test code=RDW) 13.4 % 11.5-14.5 Platelet Count (test code=PLTCT) 393 K/cumm 140-440 MPV (test code=MPV) 9.3 fL Diff Method (test code=DIFFM) Auto Neutrophil (test code=NEUT) 53.3 % 36-70 Lymphocyte (test code=LYMPH) 31.8 % 12-44 Monocyte (test code=MONO) 4.1 % 0-11 Eosinophil (test code=EOS) 10.3 % 0-7 Basophil (test code=BASO) 0.5 % 0-2 Neutro Abs (test code=ANEUT) 6.4 K/cumm 1.6-7.4 Lymph Abs (test code=ALYMPH) 3.8 K/cumm 0.5-4.6 [place] Abs (test code=AMONO) 0.5 K/cumm 0.0-1.2 Eos Abs (test code=AEOS) 1.24 K/cumm 0.00-0.74 Baso Abs (test code=ABASO) 0.1 K/cumm 0.00-0.21
--- OUTSIDE RECORDS SUMMARY | 2019-06-21 13:34 | XMS REPORT | Summary of Care ---
:1980 Author Organization [facility] - Health Address [address] [place] [address] Care Team Providers Name Role Phone Pcp, Patient Does Not Have A Primary Care Provider Encounter Details Date Type Department Care Team Description 06/10/2019 Orders Only [facility] Doctor Unassigned, No [address] [facility] [place] [address] [address] [place] [address] Allergies Active Allergy Reactions Severity Noted Date Comments Morphine Unknown - See comments 08/06/2011 Per patient she went into cardiac arrest after receiving morphine at the hospital March 2011 documented as of this encounter (statuses as of 06/10/2019) Medications Medication Sig Dispensed Refills Start Date End Date Status calcium carbonate Take 1 Tab by 90 Tab 1 03/14/2011 Active (OSCAL-500) 500 mg mouth 3 (three) (1,250 mg) tablet times daily with meals. ferrous sulfate 325 mg Take 1 Tab by 90 Tab 1 03/14/2011 Active (65 mg Iron) tablet mouth 3 (three) times daily with meals. nicotine (NICODERM) 21 Apply 1 Patch to 30 Patch 3 03/14/2011 Active mg/24 hr patch area(s) every 24 (twenty-four) hours. thiamine (VITAMIN B1) Take 1 Tab by 30 Tab 3 03/14/2011 Active 100 mg tablet mouth daily. vitamin w/FA Take 1 Tab by 30 Tab 3 03/14/2011 Active ( RX OR GENERIC mouth daily. EQUIVALENT) tablet FLUoxetine (PROZAC) 20 Take 1 Cap by 14 Cap 0 06/06/2011 Active mg capsule mouth daily. clonazePAM (KLONOPIN) Take 1 Tab by 45 Tab 0 06/06/2011 Active 0.5 mg tablet mouth 3 (three) times daily. magnesium oxide (MAG-OX Take 2 Tabs by 90 Tab 1 08/06/2011 Active 400) 400 mg tablet mouth 3 (three) times daily. KCL (K-DUR) 20 mEq Take 2 Tabs by 30 Tab 0 08/29/2011 Active tablet mouth daily. metoprolol tartrate Take 0.5 Tabs by 60 Tab 2 08/29/2011 Active (LOPRESSOR) 25 mg mouth 2 (two) tablet times daily. documented as of this encounter (statuses as of 06/10/2019) Active Problems Problem Noted Date Abdominal pain, epigastric 02/26/2011 documented as of this encounter (statuses as of 06/10/2019) Social History Tobacco Use Types Packs/Day Years Used Date Current Every Day Smoker Cigarettes 1 Alcohol Use Drinks/Week oz/Week Comments Yes Sex Assigned at Date Recorded Not on file Job Start Date Occupation Industry Not on file Not on file Not on file Travel History Travel Start Travel End No recent travel history available. documented as of this encounter Last Filed Vital Signs Not on filedocumented in this encounter Plan of Treatment Health Maintenance Due Date Last Done Comments VARICELLA VACCINES (1 of 2 - 1995 13+ 2-dose series) DTaP,Tdap,and Td Vaccines (1 2001 - Tdap) PAP SMEAR 03/10/2015 03/10/2012, 01/16/2009, 02/20/2005 INFLUENZA VACCINE 07/03/2019 PNEUMOCOCCAL 0-64 YEARS Aged Out No longer eligible based COMBINED SERIES on patient's age to complete this topic documented as of this encounter Procedures Procedure Name Priority Date/Time Associated Diagnosis Comments CONSENT/REFUSAL FOR Routine 06/10/2019 2:34 PM CDT DIAGNOSIS AND TREATMENT documented in this encounter Results Not on filedocumented in this encounter
--- OUTSIDE RECORDS SUMMARY | 2019-06-21 13:35 | XMS REPORT | Summary of Care ---
:1980 Author Organization [facility] - Health Address [address] [place] [address] Care Team Providers Name Role Phone Pcp, Patient Does Not Have A Primary Care Provider Reason for Visit Reason Comments Depression medication refill Auth/Cert Status Reason Specialty Diagnoses / Referred By Referred To Procedures Contact Contact Emergency Medicine Diagnoses DEPRESSION [facility] [address] [place] [address] Encounter Details Date Type Department Care Team Description 06/10/2019 Emergency [facility] Sepideh Sanz, DO [address] [place] [id number] [place] [address] [phone] Allergies Active Allergy Reactions Severity Noted Date [...] of this encounter Last Filed Vital Signs Vital Sign Reading Time Taken Comments Blood Pressure 117/66 06/10/2019 2:43 PM CDT Pulse 110 06/10/2019 2:43 PM CDT Temperature 37.1 C (98.7 F) 06/10/2019 2:43 PM CDT Respiratory Rate 18 06/10/2019 2:43 PM CDT Oxygen Saturation 97% 06/10/2019 2:43 PM CDT Inhaled Oxygen Concentration - - Weight 63.5 kg (140 lb) 06/10/2019 2:43 PM CDT Height - - Body Mass Index 24.03 02/06/2019 3:13 PM CDT documented in this encounter Discharge Instructions Sepdieh Morin DO - 06/10/2019DIAGNOSIS 1. Medication Refill NO LIFE-THREATENING FINDINGS ON TODAY'S EXAM. PROCEDURES IN THE ER TODAY: None MEDICATIONS ADMINISTERED IN THE ER TODAY: None YOUR PRESCRIPTIONS AND [id number] MEDICATION RECOMMENDATIONS: None SPECIAL CARE INSTRUCTIONS: Please follow-up with [facility] as scheduled on 07/15. Please go to the [facility] in [place] on Thursday06/13/19 by 8am. FOLLOW-UP RECOMMENDATIONS: RECOMMEND FOLLOW-UP WITH A PRIMARY CARE PROVIDER OR SPECIALIST IN 2-5 DAYS, ESPECIALLY IF NO IMPROVEMENT IN SYMPTOMS. TO FOLLOW-UP WITHIN THE [facility], TRY THESE OPTIONS (CLINIC APPOINTMENTS AVAILABLE ON SZSA-HC-BDPQ BASIS): 1. SCHEDULE AN APPOINTMENT ONLINE AT WWW.[facility] 2. OR CALL THE [facility] ACCESS CENTER AT OR 3. OR CALL YOUR [facility] PHYSICIAN'S OFFICE DIRECTLY IF YOU ARE ALREADY AN ESTABLISHED [facility] PATIENT. OR, YOU MAY FOLLOW-UP WITH A PROVIDER OF YOUR CHOICE, SUCH : 1. A PHYSICIAN OF YOUR CHOICE 2. [facility], . LOCATIONS IN [facility] 3. [facility], [address] [place] [address]; RETURN TO ER FOR WORSENING OF SYMPTOMS. AttachmentsThe following attachments cannot be sent through Care Everywhere.Depression (Bahamian)documented in this encounter Plan of Treatment Health [...] Procedure Name Priority Date/Time Associated Diagnosis Comments NOTICE OF PRIVACY Routine 06/10/2019 2:40 PM CDT PRACTICES documented in this encounter Results Not on filedocumented in this encounter
[2019-06-21] MEDS ORDERED: PROPRANOLOL HCL 40 MG TAB PO ONE (14:30)
--- NOTE | 2019-06-21 15:05 | EDPHYS ---
Physician Documentation [facility] Name: Miriam Fried Age: 39 yrs Sex: Female : 1980 Arrival Date: 06/21/2019 Time: 13:36 Bed 18 Private MD: ED Physician Zay Graves HPI: 06/21 14:04 This 39 yrs old Female presents to ER via Ambulatory with complaints of snw Anxiety. 14:04 The patient presents to the emergency department with anxiety, "a lot going on right snw now", Pt states she has a stable home environment, trying to get a job. Stopped all medications 1.5 months ago. States she has an appt with [employer] but it is not for another month. States she has tried a few beers, melatonin, and just feels she needs more to remain calm. Onset: The symptoms/episode began/occurred gradually. Past psychiatric history: Prior diagnosis: depression, Add/ADHD, Depression, Psychiatric medications include: Effexor, Xanax, metoprolol, Primary psychiatric physician: the patient's psychiatric physician is not known, the patient has not had a prior suicide gesture, the patient does not have a previous inpatient psychiatric history. Associated signs and symptoms: The patient has no apparent associated signs or symptoms. Severity of symptoms: At their worst the symptoms were moderate in the emergency department the symptoms are unchanged. The patient has experienced similar episodes in the past. It is unknown whether or not the patient has recently seen a physician. 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 - Social history:: Smoking status: . - Ebola Screening: : Patient denies travel to an Ebola-affected area in the 21 days before illness onset. ROS: 14:03 Constitutional: Negative for fever, chills, and weight loss, Eyes: Negative for injury, snw pain, redness, and discharge, ENT: Negative for injury, pain, and discharge, Neck: Negative for injury, pain, and swelling, Cardiovascular: Negative for chest pain, palpitations, and edema, Respiratory: Negative for shortness of breath, cough, wheezing, and pleuritic chest pain, Abdomen/GI: Negative for abdominal pain, nausea, vomiting, diarrhea, and constipation, Back: Negative for injury and pain, : Negative for injury, bleeding, discharge, and swelling, MS/Extremity: Negative for injury and deformity, Skin: Negative for injury, rash, and discoloration, Neuro: Negative for headache, weakness, numbness, tingling, and seizure. 14:03 Psych: Positive for anxiety. Exam: 14:03 Constitutional: This is a well developed, well nourished patient who is awake, alert, snw and in no acute distress. Head/Face: Normocephalic, atraumatic. Eyes: Pupils equal round and reactive to light, extra-ocular motions intact. Lids and lashes normal. Conjunctiva and sclera are non-icteric and not injected. Cornea within normal limits. Periorbital areas with no swelling, redness, or edema. 14:03 Neck: Trachea midline, no thyromegaly or masses palpated, and no cervical lymphadenopathy. Supple, full range of motion without nuchal rigidity, or vertebral point tenderness. No Meningismus. Chest/axilla: Normal chest wall appearance and motion. Nontender with no deformity. No lesions are appreciated. 14:03 Respiratory: Lungs have equal breath sounds bilaterally, clear to auscultation and percussion. No rales, rhonchi or wheezes noted. No increased work of breathing, no retractions or nasal flaring. Abdomen/GI: Soft, non-tender, with normal bowel sounds. No distension or tympany. No guarding or rebound. No evidence of tenderness throughout. Back: No spinal tenderness. No costovertebral tenderness. Full range of motion. Skin: Warm, dry with normal turgor. Normal color with no rashes, no lesions, and no evidence of cellulitis. MS/ Extremity: Pulses equal, no cyanosis. Neurovascular intact. Full, normal range of motion. Neuro: Awake and alert, GCS 15, oriented to person, place, time, and situation. Cranial nerves II-XII grossly intact. Motor strength 5/5 in all extremities. Sensory grossly intact. Cerebellar exam normal. Normal gait. 14:03 ENT: Mouth: mild erythema, Voice: is normal. 14:03 Cardiovascular: Rate: tachycardic, Rhythm: regular. 14:03 Psych: Behavior/mood is pleasant, cooperative, anxious, Affect is calm, Patient has no thoughts/intents to harm self or others. Vital Signs: 13:41 BP 151 / 89; Pulse 128; Resp 18; Temp 99.1(TE); Pulse Ox 100% on R/A; Weight 65.77 kg; hj Height 5 ft. 4 in. (162.56 cm); Pain 0/10; 14:53 BP 157 / 99; Pulse 95; Resp 18; Pulse Ox 100% on R/A; tw2 13:41 Body Mass Index 24.89 (65.77 kg, 162.56 cm) hj MDM: 13:57 Patient medically screened. snw 15:05 Data reviewed: vital signs, nurses notes. Data interpreted: Pulse oximetry: on room air snw is 100 %. Interpretation: normal. Counseling: I had a detailed discussion with the patient and/or guardian regarding: the historical points, exam findings, and any diagnostic results supporting the discharge/admit diagnosis, the need for outpatient follow up, to return to the emergency department if symptoms worsen or persist or if there are any questions or concerns that arise at home. Special discussion: I have referred the patient to see his PCP for further evaluation of high blood pressure. Based on the history and exam findings, there is no indication for further emergent testing or inpatient evaluation. I discussed with the patient/guardian the need to see the primary care provider for further evaluation of the symptoms. I discussed with the patient/guardian the need to see the psychiatrist for further evaluation of the symptoms. 06/21 13:56 Order name: EKG - Nurse/Tech; Complete Time: 13:56 06/21 14:09 Order name: EKG; Complete Time: 14:10 tw2 Administered Medications: 14:25 Drug: Propranolol 40 mg Route: PO; rb1 15:34 Follow up: Response: No adverse reaction tw2 15:21 Drug: XANax Tablet 0.5 mg Route: PO; tw2 15:34 Follow up: Response: No adverse reaction tw2 Disposition: 15:59 Co-signature as Attending Physician, Zay rGaves MD. rn Disposition: 06/21/19 15:03 Discharged to Home. Impression: Anxiety disorder, unspecified, Patient's unintentional underdosing of medication regimen. - Condition is Stable. - Discharge Instructions: Panic Attacks, Hypertension, Generalized Anxiety Disorder. - Prescriptions for Propranolol 20 mg Oral Tablet - take 1 tablet by ORAL route every 6 hours; 28 tablet. - Medication Reconciliation Form, Thank You Letter, Antibiotic Education, Prescription Opioid Use form. - Follow up: Private Physician; When: 2 - 3 days; Reason: Recheck today's complaints, Continuance of care, Re-evaluation by your physician. Signatures: Belkys Rodrigues, SOIL CONSERVATION TECHNICIAN-C SOIL CONSERVATION TECHNICIAN-Csnw Zay Graves MD MD rn Joaquin, Henry, RN RN Mirian Butler RN RN [facility] Josi Posada RN RN tw2 Corrections: (The following items were deleted from the chart) 15:35 15:03 06/21/2019 15:03 Discharged to Home. Impression: Anxiety disorder, unspecified; tw2 Patient's unintentional underdosing of medication regimen. Condition is Stable. Forms are Medication Reconciliation Form, Thank You Letter, Antibiotic Education, Prescription Opioid Use. Follow up: Private Physician; When: 2 - 3 days; Reason: Recheck today's complaints, Continuance of care, Re-evaluation by your physician. snw
--- NOTE | 2019-06-21 15:05 | ER ---
Nurse's Notes [facility] Name: Miriam Fried Age: 39 yrs Sex: Female : 1980 Arrival Date: 06/21/2019 Time: 13:36 Bed 18 Private MD: Diagnosis: Anxiety disorder, unspecified;Patient's unintentional underdosing of medication regimen Presentation: 06/21 13:39 Presenting complaint: Patient states: i have this severe anxiety attack that started hj last week, i have an appointment with [facility] until next month i need medicine to clam me down; denies plans of hurting self or others;denies chest pain;. Transition of care: patient was not received from another setting of care. Onset of symptoms was June 21, 2019. Risk Assessment: Do you want to hurt yourself or someone else? Patient reports no desire to harm self or others. Initial Sepsis Screen: Does the patient meet any 2 criteria? No. Patient's initial sepsis screen is negative. Does the patient have a suspected source of infection? No. Patient's initial sepsis screen is negative. Care prior to arrival: None. 13:39 Method Of Arrival: Ambulatory 13:39 Acuity: REGINA 2 hj Triage Assessment: 13:45 General: Appears in no apparent distress. Behavior is anxious. Pain: Denies pain. tw2 MANAGER SUBWAY: 15:35 LMP N/A - , tw2 Historical: - Allergies: 13:41 Morphine; hj - PMHx: 13:41 ADD/ADHD; Anxiety; Depression; - PSHx: 13:41 ; hj - Immunization history:: Adult Immunizations. - Social history:: Smoking status: . - Ebola Screening: : Patient denies travel to an Ebola-affected area in the 21 days before illness onset. Screenin:45 Abuse screen: Denies threats or abuse. Nutritional screening: No deficits noted. tw2 Tuberculosis screening: No symptoms or risk factors identified. Fall Risk None identified. Assessment: 13:44 Reassessment: pt reports "i have a lot of stuff going on right now in my life and i tw2 normally take alprazolam and i am out of it". General: Appears in no apparent distress. Behavior is agitated. Pain: Denies pain. Neuro: Level of Consciousness is awake, alert, obeys commands, Oriented to person, place, time, situation. Cardiovascular: Heart tones S1 S2 Patient's skin is warm and dry. Respiratory: Airway is patent Respiratory effort is even, unlabored, Respiratory pattern is regular, symmetrical, Breath sounds are clear bilaterally. GI: No signs and/or symptoms were reported involving the gastrointestinal system. : No signs and/or symptoms were reported regarding the genitourinary system. EENT: No signs and/or symptoms were reported regarding the EENT system. Derm: No signs and/or symptoms reported regarding the dermatologic system. Musculoskeletal: Range of motion: intact in all extremities. 14:53 Reassessment: Patient appears in no apparent distress at this time. No changes from tw2 previously documented assessment. Patient and/or family updated on plan of care and expected duration. Pain level reassessed. Patient is alert, oriented x 3, equal unlabored respirations, skin warm/dry/pink. 15:35 Reassessment: Patient appears in no apparent distress at this time. No changes from tw2 previously documented assessment. Patient and/or family updated on plan of care and expected duration. Pain level reassessed. Patient is alert, oriented x 3, equal unlabored respirations, skin warm/dry/pink. Vital Signs: 13:41 BP 151 / 89; Pulse 128; Resp 18; Temp 99.1(TE); Pulse Ox 100% on R/A; Weight 65.77 kg; hj Height 5 ft. 4 in. (162.56 cm); Pain 0/10; 14:53 BP 157 / 99; Pulse 95; Resp 18; Pulse Ox 100% on R/A; tw2 13:41 Body Mass Index 24.89 (65.77 kg, 162.56 cm) ED Course: 13:36 Patient arrived in ED. mr 13:41 Triage completed. hj 13:41 Arm band placed on right wrist. hj 13:44 Josi Posada, RN is Primary Nurse. tw2 13:45 Bed in low position. Call light in reach. Pulse ox on. NIBP on. tw2 13:56 Belkys Rodrigues FNP-C is PHCP. snw 13:56 Zay Graves MD is Attending Physician. snw 14:02 EKG done, by forestry technical officer. reviewed by aZy Graves MD. 3 15:35 No provider procedures requiring assistance completed. Patient did not have IV access tw2 during this emergency room visit. Administered Medications: 14:25 Drug: Propranolol 40 mg Route: PO; rb1 15:34 Follow up: Response: No adverse reaction tw2 15:21 Drug: XANax Tablet 0.5 mg Route: PO; tw2 15:34 Follow up: Response: No adverse reaction tw2 Outcome: 15:03 Discharge ordered by MD. mckeon 15:35 Discharged to home ambulatory. tw2 15:35 Condition: stable 15:35 Discharge instructions given to patient, Instructed on discharge instructions, follow up and referral plans. medication usage, Demonstrated understanding of instructions, follow-up care, medications, Prescriptions given X 1. 15:35 Patient left the ED. tw2 Signatures: Belkys Rodrigues, LOADING UNIT OPERATOR POWDER CHARGING-C LOADING UNIT OPERATOR POWDER CHARGING-Csnanthony RaYee mr ResendezLiborio, RN RN Mirian Butler, RN RN rb1 Josi Posada RN RN tw2 Jacki Allen 3 Corrections: (The following items were deleted from the chart) 13:43 13:39 Acuity: REGINA 3 hj hj 13:43 13:41 Pulse 128bpm; Resp 18bpm; Pulse Ox 100% RA; Temp 99.1F Temporal; 65.77 kg; Height hj 5 ft. 4 in.; BMI: 24.8; Pain 0/10; hj 13:46 13:39 Presenting complaint: Patient states: i have this severe anxiety attack that hj started last wee, i have an appointment with [facility] for next month i need medicine to clam me down; denies plans of hurting self or others; hj
[2019-06-21] MEDS ORDERED: ALPRAZOLAM 0.5 MG TABLET ONE (15:15)
[2019-06-21 15:40] VITALS: TEMP 99.1; O2SAT 100
[2019-06-21 15:42] VITALS: BP 157/99
--- NOTE | 2019-06-21 16:10 | EKG ---
Test Date: 2019-06-21 Test Time: 13:50:52 Associate Account Director: RONAK MEASUREMENT RESULTS: Intervals: Rate: 117 [place]: 146 QRSD: 76 QT: 332 QTc: 463 [place]: P: 50 [place]: 146 QRS: 40 T: 15 INTERPRETIVE STATEMENTS: Sinus tachycardia Septal infarct, age undetermined Abnormal ECG Compared to ECG 04/12/2019 02:25:48 Sinus rhythm no longer present Myocardial infarct finding still present Electronically Signed On 06-21-19 16:09:16 CDT by Steven Oh
== END 2019-06-21 15:35 | disposition home or self-care (01) ==
LOC: ER 13:31
DX: Z91.128 Patient's intentional underdosing of medication regimen for other reason (principal); F32.9 Major depressive disorder, single episode, unspecified; Z88.5 Allergy status to narcotic agent
CPT/HCPCS: 93005; 99284

== ENCOUNTER 2019-07-11 01:30 | Emergency (ER) | payer SELFPAY ==
--- OUTSIDE RECORDS SUMMARY | 2019-07-11 01:33 | XMS REPORT ---
:1980 [facility] Address [address] [place] [address] Dr. Krishnamurthy [address] [place] [id number] Care Team Providers Name Role Phone UNKNOWN, [...] (test code=TSH) 2.42 mIU/mL 0.270-4.200 BHCG, Serum, [id number] 07:29:00 Test Item Value Reference Range Comments B hCG, Quant (test <1 mIU/mL Weeks of Gestation Ranges code=BHCGQT) (mIU/mL)3 weeks 5.40 - 72.04 weeks 10.2 - 7085 weeks 217 - 91679 weeks 152 - 677222 weeks 4059 - 2605168 weeks 37221 - 5350452 weeks 11552 - [id number] weeks 44369 - 10720390 weeks 24888 - [id number] weeks 17364 - 6316414 weeks 51814 - 5979654 weeks 9904 - 6922074 weeks 8240 - 8913872 weeks 4468 - 80922 Lipid [id number] 07:19:00 Test Item Value Reference Range Comments Cholesterol (test 132 mg/dL 0-200 code=CHOL) Triglycerides (test 122 mg/dL 9-200 code=TRIG) HDL (test code=HDL) 21 mg/dL 50-60 Chol/HDL (test 6.3 Ratio 0.0-4.4 code=CHOLPHDL) LDL, Calculated (test 87 0-130 (NOTE)RISK OF HEART code=LDLC) DISEASEPublished by Guyanese Heart AssociationAnalyte Optimal Boderline Increased RiskCHOL <200 200-239 >240TRIG <150 150-199 >200HDL Male: >60 <40HDL Female: >60 <50LDL <100 130-159 >160LDL NEAR OPTIMAL IS 100-129 VLDL (test code=VLDL) 24 mg/dL 5-40 LDL/HDL (test code=LDLPHDL) 4 [id number] 04:24:00 Test Item Value Reference Range Comments [...] code=PROPOX) THC (test code=THC) POSITIVE Negative Urinalysis [id number] 03:47:00 Test Item Value Reference Range Comments Color (test code=COLOR) [place] Yellow,Straw,Pl yellow The value Clarence originally released by [employer] on 12/30/2017 03:42 waschanged to [place] by [employer] on 12/30/2017 03:47 Clarity (test code=CLAR) Sl Cloudy Clear The value Clear originally released by [employer] on 12/30/2017 03:42 waschanged to Sl Cloudy by [employer] on 12/30/2017 03:47 Specific [place] (test 1.006 1.001-1.035 code=SPGR) pH (test code=PH) [...] Bacteria (test code=BACT) Few /HPF Comprehensive Metabolic [id number] 01:00:00 Test Item Value Reference Range Comments [...] race is not provided, and the patient isAfrican-Guyanese, multiply by 1.212. If sex is not provided, and thepatient is female, multiply by 0.742. Results for patients <18 years ofage have not been validated by the MDRD study and should be interpretedwith caution.eGFR Result Interpretation:eGFR > or=60 is in the Normal RangeeGFR < 60 may mean kidney diseaseeGFR < 15 may mean kidney failureRanges recommended by the National Kidney Foundation,http://nkdep.nih .gov Alcohol/Ethanol, [id number] 01:00:00 Test Item Value Reference Range Comments Alcohol, Ethyl (test <0.01 g/dL 0.00-0.01 Intoxicated 0.080 g/dL or code=ETOH) more CBC with [id number] 00:45:00 Test Item Value Reference Range Comments [...] Lymph Abs (test code=ALYMPH) 3.8 K/cumm 0.5-4.6 Dawes Abs (test code=AMONO) 0.5 K/cumm 0.0-1.2 Eos Abs (test code=AEOS) 1.24 K/cumm 0.00-0.74 Baso Abs (test code=ABASO) 0.1 K/cumm 0.00-0.21
--- OUTSIDE RECORDS SUMMARY | 2019-07-11 01:33 | XMS REPORT | Summary of Care ---
:1980 Author Organization [facility] Address [address] [place] [id number] Care Team Providers Name Role Phone Pcp, Patient Does Not Have A Primary Care Provider Reason for Visit Reason Comments Anxiety Depression Auth/Cert Status Reason Specialty Diagnoses / Referred By Referred To Procedures Contact Contact Emergency Medicine [facility]-Emergency Dept [address] [place] [phone] Encounter Details Date Type Department Care Team Description 06/22/2019 Emergency [facility] Porter Mark MD Anxiety (Primary Dx) [address] [place] [address] [id number] [place] [address] [place], [place] [phone] Allergies Active Allergy Reactions Severity Noted Date Comments Morphine Unknown - See comments 08/06/2011 Per patient she went into cardiac arrest after receiving morphine at the hospital March 2011 documented as of this encounter (statuses as of 06/22/2019) Medications Medication Sig Dispensed Refills Start Date End Date Status calcium carbonate Take 1 Tab by 90 Tab 1 03/14/2011 Active (OSCAL-500) 500 mg mouth 3 (three) (1,250 mg) tablet times daily with meals. ferrous sulfate 325 Take 1 Tab by 90 Tab 1 03/14/2011 Active mg (65 mg Iron) mouth 3 (three) tablet times daily with meals. nicotine (NICODERM) Apply 1 Patch to 30 Patch 3 03/14/2011 Active 21 mg/24 hr patch area(s) every 24 (twenty-four) hours. thiamine (VITAMIN Take 1 Tab by 30 Tab 3 03/14/2011 Active B1) 100 mg tablet mouth daily. vitamin Take 1 Tab by 30 Tab 3 03/14/2011 Active w/FA ( RX OR mouth daily. GENERIC EQUIVALENT) tablet FLUoxetine (PROZAC) Take 1 Cap by 14 Cap 0 06/06/2011 Active 20 mg capsule mouth daily. clonazePAM Take 1 Tab by 45 Tab 0 06/06/2011 Active (KLONOPIN) 0.5 mg mouth 3 (three) tablet times daily. magnesium oxide Take 2 Tabs by 90 Tab 1 08/06/2011 Active (MAG-OX 400) 400 mg mouth 3 (three) tablet times daily. KCL (K-DUR) 20 mEq Take 2 Tabs by 30 Tab 0 08/29/2011 Active tablet mouth daily. metoprolol tartrate Take 0.5 Tabs by 60 Tab 2 08/29/2011 Active (LOPRESSOR) 25 mg mouth 2 (two) tablet times daily. gabapentin 300 mg Take 1 capsule by 60 capsule 0 06/22/2019 07/22/2019 Active capsuleIndications: mouth 2 (two) Anxiety times daily for 30 days. documented as of this encounter (statuses as of 06/22/2019) Active Problems Problem Noted Date Abdominal pain, epigastric 02/26/2011 documented as of this encounter (statuses as of 06/22/2019) Social History Tobacco Use Types Packs/Day Years [...] Sign Reading Time Taken Comments Blood Pressure 146/89 06/22/2019 9:08 PM CDT Pulse 130 06/22/2019 9:08 PM made aware CDT Temperature 36.7 C (98.1 F) 06/22/2019 9:08 PM CDT Respiratory Rate 18 06/22/2019 9:08 PM CDT Oxygen Saturation 95% 06/22/2019 9:08 PM CDT Inhaled Oxygen Concentration - - Weight 68 kg (150 lb) 06/22/2019 7:05 PM CDT Height - - Body Mass Index 25.75 02/06/2019 3:13 PM CDT documented in this encounter Discharge Instructions InstructionsDaya, Porter B, MD - 06/22/2019Your diagnosis is: anxiety, racing thoughts Your treatments today included: No orders of the defined types were placed in this encounter. Your prescriptions today are: none You will need to follow-up with your Primary Care Provider: Please follow up with [facility], they have a walk in service If you do not have a primary care provider, you will need to arrange for your own. If you need assistance with this, the discharge planners can help you identify resources appropriate for you. See further medical attention for: IF you develop any new concerning symptoms AttachmentsThe following attachments cannot be sent through Care Everywhere.Anxiety Disorders, Understanding (Burundian)documented in this encounter Plan of Treatment Health Maintenance Due Date Last Done Comments PNEUMOCOCCAL 0-64 YEARS COMBINED 01/12/1988 SERIES (1 of 1 - PPSV23) VARICELLA VACCINES (1 of 2 - 13+ 1995 2-dose series) DTaP,Tdap,and Td Vaccines (1 - Tdap) 2001 PAP SMEAR 03/10/2015 03/10/2012, 01/16/2009, 02/20/2005 INFLUENZA VACCINE (Retired version) 07/03/2019 documented as of this encounter Results Not on filedocumented in this encounter Visit Diagnoses Diagnosis Anxiety - Primary Anxiety state, unspecified documented in this encounter Administered Medications Medication Order MAR Action Action Date Dose Rate Site LORazepam (ATIVAN) tablet 2 mg Given 06/22/2019 7:55 PM CDT 2 mg 2 mg, Oral, ONCE, 1 dose, 06/22/19 at 2100, CHRISTY documented in this encounter
[2019-07-11] MEDS ORDERED: NA CHLORIDE 0.9% 1,000 ML ONE (02:01)
[2019-07-11 02:03] LABS: Urine Blood TRACE (NEG); Urine Glucose NEGATIVE (NEG); Urine Protein TRACE (NEG); Urine pH 6.5 (5.0-7.0)
[2019-07-11 02:08] LABS: Absolute Lymphocytes (CBC) 2.9 K/uL (0.7-4.9); Basophils % 1.1 % (0-1.3); Hematocrit 36.8 % (36.0-45.0); Lymphocytes % 19.9 % (15.3-44.8); MPV 8.1 fL (7.6-11.3); RBC Red Blood Cell Count 4.04 M/uL (3.86-4.86)
[2019-07-11] MEDS ORDERED: LORazepam 2 MG/ML VIAL ONE (02:15)
[2019-07-11 02:16] LABS: Protime INR 1.04
[2019-07-11 02:18] LABS: Barbiturates NEGATIVE (NEGATIVE); Benzodiazepines POSITIVE (NEGATIVE); Cocaine NEGATIVE (NEGATIVE); METHAMPHETAM POSITIVE (NEGATIVE); Methadone NEGATIVE (NEGATIVE); Opiates NEGATIVE (NEGATIVE); Phencyclidine NEGATIVE (NEGATIVE); THC Cannibis NEGATIVE (NEGATIVE)
[2019-07-11 02:43] LABS: ALT/SGPT 16 U/L (12-78); AST/SGOT 17 U/L (15-37); Albumin 4.4 g/dL (3.4-5.0); Alkaline Phosphatase 99 U/L (45-117); BUN Blood Urea Nitrogen 14 mg/dL (7-18); Bicarbonate 25 mmol/L (21-32); Bilirubin Direct < 0.1 mg/dL (0-0.2); Bilirubin Total 0.2 mg/dL (0.2-1.0); Glucose Level 96 mg/dL (74-106); Potassium 3.5 mmol/L (3.5-5.1); Protein, Total 7.8 g/dL (6.4-8.2); Sodium Level 142 mmol/L (136-145)
--- NOTE | 2019-07-11 04:10 | ER ---
Nurse's Notes [facility] Name: Miriam Freid Age: 39 yrs Sex: Female : 1980 Arrival Date: 07/11/2019 Time: 01:31 Bed 7 Private MD: Diagnosis: Major depressive disorder, recurrent;Adverse effect of amphetamines Presentation: 07/11 01:45 Presenting complaint: EMS states: Called for patient feeling anxious tonight related to lp1 stress of CPS case with her children; States feeling suicidal, denies any plan; States appointment with [facility] scheduled for Thursday; + ETOH and meth use tonight. Transition of care: patient was not received from another setting of care. Onset of symptoms was July 11, 2019. Risk Assessment: Do you want to hurt yourself or someone else? Patient reports desire/thoughts of hurting themselves or someone else. Provider notified. Initial Sepsis Screen: Does the patient meet any 2 criteria? HR > 90 bpm. Does the patient have a suspected source of infection? No. Patient's initial sepsis screen is negative. Care prior to arrival: None. 01:45 Method Of Arrival: EMS: [facility] lp1 01:45 Acuity: REGINA 2 lp1 TOBACCO GROWER: 01:50 LMP 06/02/2019 lp1 Historical: - Allergies: 01:52 Morphine; lp1 - Home Meds: 01:52 None [Active]; lp1 - PMHx: 01:52 ADD/ADHD; Anxiety; Depression; PTSD; Atrial Fib; lp1 - PSHx: 01:52 ; lp1 - Immunization history:: Adult Immunizations unknown. - Social history:: Smoking status: Patient uses tobacco products, smokes one pack cigarettes per day. - Ebola Screening: : No symptoms or risks identified at this time. Screenin:53 Abuse screen: Denies threats or abuse. Denies injuries from another. Nutritional lp1 screening: No deficits noted. Tuberculosis screening: No symptoms or risk factors identified. Fall Risk None identified. Assessment: 01:53 General: Appears in no apparent distress. Behavior is anxious. Pain: Denies pain. lp1 Neuro: Level of Consciousness is awake, alert, obeys commands, Oriented to person, place, time, situation. Cardiovascular: Patient's skin is warm and dry. Respiratory: Respiratory effort is even, unlabored. GI: No signs and/or symptoms were reported involving the gastrointestinal system. : No signs and/or symptoms were reported regarding the genitourinary system. EENT: No signs and/or symptoms were reported regarding the EENT system. Derm: Skin is pink, warm \\T\\ dry. Musculoskeletal: No deficits noted. 03:00 Reassessment: Patient appears in no apparent distress at this time. Patient and/or lp1 family updated on plan of care and expected duration. Pain level reassessed. Patient resting, eyes closed, respirations unlabored. 04:05 Reassessment: Dr. Alvarado at bedside to discuss care with patient; Patient expresses lp1 wanting to go home; "I just need a few meds to stay relaxed until my [facility] appt on Thursday". 04:15 Reassessment: Patient's belongings returned from Security. lp1 Psych: 01:45 Safety Checks: Personal items have been removed. Door is open. No visitors are present lp1 at this time. Patient uses of beer, Patient uses methamphetamines. 01:53 Subjective: Patient's mood is sad, Delusions are denied, Hallucinations are denied lp1 Having thoughts of suicide. Denies suicidal plan. Objective: Patient is cooperative, Speech is normal, Affect is flat. Interventions: Removed personal items and placed in bag. Patient placed in hospital gown. Searched person for dangerous items. Urine collected and sent for urine drug test. Belonging list filled out. Suicide Risk Assessment: Sad Person Scale: Sex of patient: Female: Score 0 points. Age of patient: Score 0 point if patient falls outside of specified age parameters. Depression: Score 1 point if signs of depression are present. Previous Attempt: Score 0 point if patient has not previously attempted suicide. Substance Abuse: Score 1 point if patient abuses alcohol or drugs. Rational Thinking: Score 1 point if patient is lacking rational thinking. Social Support: Score 1 point if social support is lacking and/or unavailable. Organized Plan: Score 0 if patient did not have an organized plan in place. Relationship: Score 1 point if patient is , , , or for a single male Chronic Sickness: Score 0 point if patient does not have a chronic illness, debilitating, or severe disorder. TOTAL POINTS: If total points are 5-6, proposed clinical action is to strongly consider hospitalization, depending upon confidence in the follow-up arrangement. Implement suicide precautions. Vital Signs: 01:50 BP 132 / 85; Pulse 121; Resp 18; Temp 98.7(O); Pulse Ox 99% on R/A; Weight 45.36 kg; lp1 Height 5 ft. 4 in. (162.56 cm); Pain 0/10; 02:20 Pulse 111; Resp 18; Pulse Ox 100% on R/A; lp1 04:13 BP 134 / 75 LA Sitting (auto/reg); Pulse 98 MON; Resp 18 S; Pulse Ox 100% on R/A; ds4 01:50 Body Mass Index 17.16 (45.36 kg, 162.56 cm) lp1 ED Course: 01:31 Patient arrived in ED. ds1 01:33 Belkys Rodrigues [facility]-C [facility]. snw 01:33 Russel Alvarado MD is Attending Physician. snw 01:40 Barbara Luther RN is Primary Nurse. lp1 01:44 Inserted saline lock: 20 gauge in left antecubital area, using aseptic technique. Blood lp1 collected. By Yenny Steele RN. 01:45 Patient has correct armband on for positive identification. Placed in gown. Bed in low lp1 position. Valuables inventory done. Locked in safe. Sitter at bedside. 01:50 Triage completed. lp1 01:51 Arm band placed on right wrist. lp1 02:00 Safety checks: Items removed: yes. Door open/sign placed on door: yes. Family/friend ds4 present: no. Sitter present: Yes. 02:15 Safety checks: Items removed: yes. Door open/sign placed on door: yes. Family/friend ds4 present: no. Sitter present: Yes. 02:30 Safety checks: Items removed: yes. Door open/sign placed on door: yes. Family/friend ds4 present: no. Sitter present: Yes. 02:45 Safety checks: Items removed: yes. Door open/sign placed on door: yes. Family/friend ds4 present: no. Sitter present: Yes. 03:00 Safety checks: Items removed: yes. Door open/sign placed on door: yes. Family/friend ds4 present: no. Sitter present: Yes. 03:15 Safety checks: Items removed: yes. Door open/sign placed on door: yes. Family/friend ds4 present: no. Sitter present: Yes. 03:30 Safety checks: Items removed: yes. Door open/sign placed on door: yes. Family/friend ds4 present: no. Sitter present: Yes. 03:45 Safety checks: Items removed: yes. Door open/sign placed on door: yes. Family/friend ds4 present: no. Sitter present: Yes. 04:05 Safety checks: Items removed: yes. Door open/sign placed on door: yes. Family/friend ds4 present: no. Sitter present: Yes. 04:06 No provider procedures requiring assistance completed. Patient pulled out IV to L AC. lp1 Administered Medications: 02:20 Drug: NS 0.9% 1000 ml Route: IV; Rate: 1 bolus; Site: left antecubital; lp1 04:16 Follow up: IV Status: Completed infusion; IV Intake: 900ml lp1 02:20 Drug: Ativan 1 mg Route: IVP; Site: left antecubital; lp1 03:00 Follow up: Response: Marked relief of symptoms lp1 Intake: 04:16 IV: 900ml; Total: 900ml. lp1 Outcome: 04:09 Discharge ordered by . 04:14 Discharged to home ambulatory. lp1 04:14 Condition: good 04:14 Discharge instructions given to patient, Instructed on discharge instructions, follow up and referral plans. medication usage, Demonstrated understanding of instructions, follow-up care, medications, Prescriptions given X 2. 04:15 Patient left the ED. lp1 Signatures: Belkys Rodrigues, STEFANIA-C SURFACE GRINDER-Csnw Keila Rowe ds1 Barbara Luther RN RN lp1 Sabino Harman ds4 Russel Alvarado MD MD gs Corrections: (The following items were deleted from the chart) 01:56 01:53 Suicide Risk Assessment: Sad Person Scale: Sex of patient: Female: Score 0 lp1 points. Age of patient: Score 0 point if patient falls outside of specified age parameters. Depression: Score 1 point if signs of depression are present. Previous Attempt: lp1
--- NOTE | 2019-07-11 04:10 | EDPHYS ---
Physician Documentation [facility] Name: Miriam Fried Age: 39 yrs Sex: Female : 1980 Arrival Date: 07/11/2019 Time: 01:31 Bed 7 Private MD: ED Physician Russel Alvarado HPI: 07/11 01:49 This 39 yrs old Female presents to ER via EMS with complaints of Suicidal snw Ideation. 01:49 The patient presents to the emergency department with anxiety, over a relationship, snw depression, over a relationship, a history of substance abuse, Self medicating with ETOH, meth, xanax , suicide ideation, but the patient has no formulated plan. Onset: The symptoms/episode began/occurred acutely. Past psychiatric history: Prior diagnosis: depression, PTSD, anxiety, Psychiatric medications include: none, Primary psychiatric physician: the patient does not have a primary psychiatric physician, the patient has not had a prior suicide gesture, the patient does not have a previous inpatient psychiatric history. Associated signs and symptoms: Pertinent positives; anxiety, tremor. Severity of symptoms: At their worst the symptoms were moderate severe in the emergency department the symptoms are unchanged. The patient has experienced similar episodes in the past. The patient has not recently seen a physician, appt with [facility] on Thursday. Pt states her Daughters and her Mother have blocked her phone calls. She is being investigated by CPS. She has been "self medicating" and can't do it anymore. 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 - Social history:: Smoking status: Patient uses tobacco products, smokes one pack cigarettes per day. - Ebola Screening: : No symptoms or risks identified at this time. ROS: 01:49 Constitutional: Negative for fever, chills, and weight loss, Eyes: Negative for injury, snw pain, redness, and discharge, ENT: Negative for injury, pain, and discharge, Neck: Negative for injury, pain, and swelling, Cardiovascular: Negative for chest pain, palpitations, and edema, Respiratory: Negative for shortness of breath, cough, wheezing, and pleuritic chest pain, Abdomen/GI: Negative for abdominal pain, nausea, vomiting, diarrhea, and constipation, Back: Negative for injury and pain, : Negative for injury, bleeding, discharge, and swelling, MS/Extremity: Negative for injury and deformity, Skin: Negative for injury, rash, and discoloration, Neuro: Negative for headache, weakness, numbness, tingling, and seizure. 01:49 Psych: Positive for anxiety, depression, drug dependence, alcohol dependence, suicidal ideation. Exam: 01:49 Head/Face: Normocephalic, atraumatic. Eyes: Pupils equal round and reactive to light, snw extra-ocular motions intact. Lids and lashes normal. Conjunctiva and sclera are non-icteric and not injected. Cornea within normal limits. Periorbital areas with no swelling, redness, or edema. ENT: Nares patent. No nasal discharge, no septal abnormalities noted. Tympanic membranes are normal and external auditory canals are clear. Oropharynx with no redness, swelling, or masses, exudates, or evidence of obstruction, uvula midline. Mucous membranes moist. Neck: Trachea midline, no thyromegaly or masses palpated, and no cervical lymphadenopathy. Supple, full range of motion without nuchal rigidity, or vertebral point tenderness. No Meningismus. Chest/axilla: Normal chest wall appearance and motion. Nontender with no deformity. No lesions are appreciated. 01:49 Respiratory: Lungs have equal breath sounds bilaterally, clear to auscultation and percussion. No rales, rhonchi or wheezes noted. No increased work of breathing, no retractions or nasal flaring. Abdomen/GI: Soft, non-tender, with normal bowel sounds. No distension or tympany. No guarding or rebound. No evidence of tenderness throughout. Back: No spinal tenderness. No costovertebral tenderness. Full range of motion. Skin: Warm, dry with normal turgor. Normal color with no rashes, no lesions, and no evidence of cellulitis. MS/ Extremity: Pulses equal, no cyanosis. Neurovascular intact. Full, normal range of motion. Neuro: Awake and alert, GCS 15, oriented to person, place, time, and situation. Cranial nerves II-XII grossly intact. Motor strength 5/5 in all extremities. Sensory grossly intact. Cerebellar exam normal. Normal gait. 01:49 Constitutional: The patient appears alert, anxious. 01:49 Cardiovascular: Rate: tachycardic, Heart sounds: normal, Edema: is not appreciated. 01:49 Psych: Behavior/mood is cooperative, anxious, suicidal, depressed, Affect is calm, Oriented to person, place, time, Patient having thoughts of suicide. Denies suicidal plan. Judgement / Insight is impaired. Vital Signs: 01:50 BP 132 / 85; Pulse 121; Resp 18; Temp 98.7(O); Pulse Ox 99% on R/A; Weight 45.36 kg; lp1 Height 5 ft. 4 in. (162.56 cm); Pain 0/10; 02:20 Pulse 111; Resp 18; Pulse Ox 100% on R/A; lp1 04:13 BP 134 / 75 LA Sitting (auto/reg); Pulse 98 MON; Resp 18 S; Pulse Ox 100% on R/A; ds4 01:50 Body Mass Index 17.16 (45.36 kg, 162.56 cm) lp1 MDM: 01:39 Patient medically screened. snw 03:02 Data reviewed: vital signs, nurses notes. Data interpreted: Pulse oximetry: on room air snw is 100 %. Interpretation: normal. Counseling: I had a detailed discussion with the patient and/or guardian regarding: the historical points, exam findings, and any diagnostic results supporting the discharge/admit diagnosis, the presence of at least one elevated blood pressure reading (>120/80) during this emergency department visit, lab results. Transition of care: After a detail discussion of the patient's case, care is transferred to Russel Alvarado MD. 04:06 ED course: pt seen and examined, says not suicidal just wants to see [facility] personnel get gs script for Prozac and ativan. 07/11 01:56 Order name: Acetaminophen; Complete Time: 02:44 snw 07/11 01:56 Order name: Basic Metabolic Panel; Complete Time: 02:44 snw 07/11 01:56 Order name: CBC with Diff; Complete Time: 02:11 snw 07/11 01:56 Order name: ETOH Level; Complete Time: 02:28 snw 07/11 01:56 Order name: Hepatic Function; Complete Time: 02:44 snw /09 01:56 Order name: PT-INR; Complete Time: 02:21 07/11 01:56 Order name: Ptt, Activated; Complete Time: 02:21 07/11 01:56 Order name: Salicylate; Complete Time: 02:18 07/11 01:56 Order name: Urine Drug Screen; Complete Time: 02:18 07/11 01:56 Order name: TSH; Complete Time: 02:44 07/11 01:59 Order name: Urine Dipstick--Ancillary (enter results); Complete Time: 02:06 07/11 01:59 Order name: Urine --Ancillary (enter results); Complete Time: 02:06 07/11 01:56 Order name: EKG; Complete Time: :57 07/11 01:56 Order name: EKG - Nurse/Tech; Complete Time: 01:57 07/11 01:56 Order name: IV Saline Lock; Complete Time: :57 07/11 01:56 Order name: Labs collected and sent; Complete Time: :57 07/11 01:56 Order name: Urine Dipstick-Ancillary (obtain specimen); Complete Time: 01:57 snw Administered Medications: 02:20 Drug: NS 0.9% 1000 ml Route: IV; Rate: 1 bolus; Site: left antecubital; lp1 04:16 Follow up: IV Status: Completed infusion; IV Intake: 900ml lp1 02:20 Drug: Ativan 1 mg Route: IVP; Site: left antecubital; lp1 03:00 Follow up: Response: Marked relief of symptoms lp1 Disposition: 07/11/19 04:09 Discharged to Home. Impression: Major depressive disorder, recurrent, Adverse effect of amphetamines. - Condition is Stable. - Discharge Instructions: Stimulant Use Disorder-Methamphetamines. - Prescriptions for Ativan 0.5 mg Oral Tablet - take 1 tablet by ORAL route 2 times per day As needed; 15 tablet. Prozac 20 mg Oral Capsule - take 1 capsule by ORAL route once daily; 10 capsule. - Medication Reconciliation Form, Thank You Letter, Antibiotic Education, Prescription Opioid Use form. - Follow up: Private Physician; When: 1 - 2 days; Reason: Re-evaluation by your physician. Signatures: Dispatcher [employer] EDMS Belkys Rodrigues, ON SITE WASTEWATER SYSTEMS TECHNICIAN-C ON SITE WASTEWATER SYSTEMS TECHNICIAN-Csnw Ivonne Nascimento, RN RN bb Barbara Luther RN RN lp1 Russel Alvarado MD MD gs Corrections: (The following items were deleted from the chart) 04:15 04:09 07/11/2019 04:09 Discharged to Home. Impression: Major depressive disorder, lp1 recurrent; Adverse effect of amphetamines. Condition is Stable. Forms are Medication Reconciliation Form, Thank You Letter, Antibiotic Education, Prescription Opioid Use. Follow up: Private Physician; When: 1 - 2 days; Reason: Re-evaluation by your physician. gs
--- NOTE | 2019-07-11 08:01 | EKG ---
Test Date: 2019-07-11 Test Time: 01:38:20 Leather Etcher: ARACELI MEASUREMENT RESULTS: Intervals: Rate: 124 WA: 134 QRSD: 74 QT: 328 QTc: 471 [place]: P: 58 WA: 134 QRS: 18 T: 24 INTERPRETIVE STATEMENTS: Sinus tachycardia Possible Left atrial enlargement Septal infarct, age undetermined Abnormal ECG Compared to ECG 06/21/2019 13:50:52 No significant changes Electronically Signed On 07-11-19 08:01:19 CDT by Lucas Sinha
[2019-07-11 14:02] VITALS: TEMP 98.7
[2019-07-11 14:03] VITALS: O2SAT 100
[2019-07-11 14:04] VITALS: BP 134/75
== END 2019-07-11 04:15 | disposition home or self-care (01) ==
LOC: ER 01:30
DX: F33.9 Major depressive disorder, recurrent, unspecified (principal); T43.625A Adverse effect of amphetamines, initial encounter; Z72.0 Tobacco use; Z88.5 Allergy status to narcotic agent
CPT/HCPCS: 36415; 80048; 80076; 80307; 80320; 80329; 81003; 81025; 84443; 85025; 85610; 85730; 93005; 96361; 96374; 99285; J7030

== ENCOUNTER 2020-03-04 22:48 | Emergency (ER) | payer SELFPAY ==
--- OUTSIDE RECORDS SUMMARY | 2020-03-04 22:51 | XMS REPORT ---
:1980 Author Organization [facility] t Address [address] [place] [address] Dr. Krish[address] [place] [address] Care Team Providers Name Role Phone UNKNOWN, [...] Item Value Reference Range Comments RPR (test code = RPR) Non-Reactive Non-Reactive Thyroid Stimulating Hormone (TSH)2017-12-30 07:29:00 Test Item Value Reference Range Comments TSH (test code = TSH) 2.42 mIU/mL 0.270-4.200 BHCG, Serum, [id number] 07:29:00 Test Item Value Reference Range Comments B hCG, Quant (test code = <1 mIU/mL Weeks of Gestation Ranges BHCGQT) (mIU/mL)3 weeks 5.40 - 72.04 wee ks 10.2 - 6037 we eks 976 - 14075 w eeks 152 - 992607 weeks 4059 - 153 7678 weeks 81040 - 5848403 weeks 5 9109 - 39243587 weeks 36824 - 83520311 weeks 33873 - 35111981 weeks 11309 - 9364 615 weeks 82870 - 6 826504 weeks 1204 - 3010635 weeks 0948 - 3315160 weeks 3477 - 96543 Lipid [id number] 07:19:00 Test Item Value Reference Range Comments Cholesterol (test code = 132 mg/dL 0-200 CHOL) Triglycerides (test code = 122 mg/dL 9-200 TRIG) HDL (test code = HDL) 21 mg/dL 50-60 Chol/HDL (test code = 6.3 Ratio 0.0-4.4 CHOLPHDL) LDL, Calculated (test code 87 0-130 (NOTE )RISK OF HEART = LDLC) DISEASEPublished by [place] Heart Associatio nAnalyte Optimal Boderline Increased RiskCHOL <200 20 0-239 >240TRIG <150 150-199 >200HDL Male: >60 <40HDL Female: &g t;60 <50LDL <100 130-159 >1 60LDL NEAR O PTIMAL IS 100-129 VLDL (test code = VLDL) 24 mg/dL 5-40 LDL/HDL (test code = 4 LDLPHDL) [id number] 04:24:00 Test Item Value Reference Range Comments Amphetamine (test code = AMPH) Negative Negative F or diagnostic purposes only, positive results should always be assessedin co njunctionwith the patient's me dical history,clinical examination and otherfinding s.To fulfill legal requiremen ts, a more specific alterna te chemical methodmust be us ed inorder to obtain a Confirm ed analytical result. GC/MS is the preferred confirmatory met hod. Barbiturates (test code = Negative Negative ARNOLD) Benzodiazepine (test code = POSITIVE Negative MOHINDER) Cocaine (test code = COCA) Negative Negative Methadone (test code = MTHD) Negative Negative Opiates (test code = OPIA) Negative Negative PCP (test code = PCP) Negative Negative Propoxyphene (test code = Negative Negative PROPOX) THC (test code = THC) POSITIVE Negative Urinalysis [id number] 03:47:00 Test Item Value Reference Range Comments Color (test code = COLOR) [place] Yellow,Straw,Pl yellow The value [place] originally relea sed by DUDONELL on 12/30 03:42 waschanged to [place] by DUONGDI on 12/30/2017 03:47 Clarity (test code = Sl Cloudy Clear The value C lear CLAR) originally relea sed by DUONGDI on 12/30 03:42 waschanged to Sl Cloudy by ANTHONY I on 12/30/2017 03:47 Specific [place] (test 1.006 1.001-1.035 code = SPGR) pH (test code = PH) 6.5 5.0-9.0 Ketone (test code = KET) Negative mg/dL Negative Glucose (test code = Negative mg/dL Negative GLUCUR) Protein (test code = Negative mg/dL Negative PROT) Bilirubin (test code = Negative mg/dL Negative BILI) Occult Blood (test code = Large Negative UDOB) Urobilinogen (test code = 0.2 mg/dL 0.2-1.0 UROB) Nitrite (test code = NIT) Negative Negative Leuk Esterase (test code Small Negative = LEUK) Micros Exam (test code = Indicated MEXAM) Epithelial Cells (test None /LPF 0-30 code = EPI) WBC, Urine (test code = 0-2 /HPF 0-5 UWBC) RBC, Urine (test code = 51-100 /HPF 0-5 URBC) Bacteria (test code = Few /HPF BACT) Comprehensive Metabolic [id number] 01:00:00 Test Item Value Reference Range Comments Sodium (test code = NA) 139 mmol/L 135-145 Potassium (test code = 3.4 mmol/L 3.5-5.1 K) Chloride (test code = 101 mmol/L 98-105 CL) Carbon Dioxide (test 28 mmol/L 22-29 code = CO2) Glucose (test code = 102 mg/dL 70-115 GLU) Blood Urea Nitrogen 6 mg/dL 6-20 (test code = BUN) Creatinine (test code = 0.7 mg/dL 0.5-0.9 CREAT) Calcium (test code = CA) 9.4 mg/dL 8.3-10.5 Prot Total (test code = 6.6 g/dL 6.4-8.3 TP) Albumin (test code = 4.3 g/dL 3.5-5.2 ALB) A/G Ratio (test code = 1.9 Ratio AGRATIO) Globulin (test code = 2.3 2.9-3.1 GLOB) Bili Total (test code = <0.1 mg/dL 0.1-0.9 TBIL) Alk Phos (test code = 84 U/L 35-104 APHOS) AST (test code = AST) 16 U/L 1-32 ALT (test code = ALT) 11 U/L 1-33 BUN/Creatinine Ratio 8.6 (test code = BCRATIO) Anion Gap (test code = 10 mmol/L 7-16 AGAP) Estimated GFR (test code >60 mL/min/1.73m2 eGFR (estimated Glomerular = GFR) Filtration Rate) is an estimated value, calculated from the patient 's serum creatinine using the MDRD equation.It is N OT the patient's actual GFR. The eGFR provides a more clinicallyuseful measure of kidney disease t mckeon serum creatinine alone .This calculation take s sex and race into accoun t, if the informationis pr ovided. If the race is not provided, and the patient isAfrican-Americ an, multiply by 1.21 2. If sex is not provided, and thepatient is fe male, multiply by 0.74 2. Results for patients <18 years ofage have not b een validated by the MDRD study and should be interpretedwith caution.eGFR Res ult Interpretation:e GFR > or = 60 is in the Nor mal RangeeGFR < 60 m ay mean kidney diseaseeG FR < 15 may mean kidney failureRanges recommended by salomón huggins National Kidney Foundation,http: //nkdep.nih .gov Alcohol/Ethanol, [id number] 01:00:00 Test Item Value Reference Range Comments Alcohol, Ethyl (test code <0.01 g/dL 0.00-0.01 Intoxi cated 0.080 g/dL or = ETOH) more CBC with [id number] 00:45:00 Test Item Value Reference Range Comments WBC (test code = WBC) 12.0 K/cumm 4.4-10.5 RBC (test code = RBC) 4.09 M/cumm 3.75-5.20 Hemoglobin (test code = HGB) 12.4 gm/dL 12.2-14.8 Hematocrit (test code = HCT) 38.3 % 36.5-44.4 MCV (test code = MCV) 93.8 fL 80-100 MCH (test code = MCH) 30.4 pg 27.0-32.5 MCHC (test code = MCHC) 32.5 g/dL 32.0-37.5 RDW (test code = RDW) 13.4 % 11.5-14.5 Platelet Count (test code = PLTCT) 393 K/cumm 140-440 MPV (test code = MPV) 9.3 fL Diff Method (test code = DIFFM) Auto Neutrophil (test code = NEUT) 53.3 % 36-70 Lymphocyte (test code = LYMPH) 31.8 % 12-44 Monocyte (test code = MONO) 4.1 % 0-11 Eosinophil (test code = EOS) 10.3 % 0-7 Basophil (test code = BASO) 0.5 % 0-2 Neutro Abs (test code = ANEUT) 6.4 K/cumm 1.6-7.4 Lymph Abs (test code = ALYMPH) 3.8 K/cumm 0.5-4.6 Warrick Abs (test code = AMONO) 0.5 K/cumm 0.0-1.2 Eos Abs (test code = AEOS) 1.24 K/cumm 0.00-0.74 Baso Abs (test code = ABASO) 0.1 K/cumm 0.00-0.21
--- NOTE | 2020-03-04 23:18 | ER ---
Nurse's Notes [facility] Name: Miriam Fried Age: 40 yrs Sex: Female : 1980 Arrival Date: 03/04/2020 Time: 22:52 Bed 15 Private MD: Diagnosis: Auditory hallucinations Presentation: 03/04 23:06 Chief complaint: Patient states: hearing voices and feeling anxious the last 2 weeks; lp1 been off of medications for the last 2 months due to financial reasons and ; Patient of [facility]; States hx of hearing voices, symptoms returning due to being without medications; Denies SI and HI. Coronavirus screen: Proceed with normal triage. Ebola Screen: No symptoms or risks identified at this time. Initial Sepsis Screen: Does the patient meet any 2 criteria? No. Patient's initial sepsis screen is negative. Does the patient have a suspected source of infection? No. Patient's initial sepsis screen is negative. Risk Assessment: Do you want to hurt yourself or someone else? Patient reports no desire to harm self or others. Onset of symptoms was March 04, 2020. 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 - Social history:: Smoking status: Patient reports the use of cigarette tobacco products, smokes one pack cigarettes per day. Screenin:08 Abuse screen: Denies threats or abuse. Denies injuries from another. Nutritional rr5 screening: No deficits noted. Tuberculosis screening: No symptoms or risk factors identified. Fall Risk None identified. Total Chinchilla Fall Scale indicates No Risk (0-24 pts). Assessment: 23:05 General: Appears in no apparent distress. comfortable, Behavior is cooperative, rr5 anxious, Reports hearing voices Denies suicidal ideation. Pain: Denies pain. Neuro: Level of Consciousness is awake, alert, obeys commands, Oriented to person, place, time, situation, Appropriate for age Reports I am off from my medication now I am hearing voices. 23:05 Cardiovascular: Capillary refill < 3 seconds Patient's skin is warm and dry. rr5 Respiratory: Airway is patent Respiratory effort is even, unlabored, Respiratory pattern is regular, symmetrical. GI: No signs and/or symptoms were reported involving the gastrointestinal system. : No signs and/or symptoms were reported regarding the genitourinary system. Reports 2 months . EENT: No signs and/or symptoms were reported regarding the EENT system. Derm: Skin is intact, is healthy with good turgor, Skin temperature is warm. Musculoskeletal: No signs and/or symptoms reported regarding the musculoskeletal system. Circulation, motion, and sensation intact. 23:15 Reassessment: ED provider spoke to patient for the plan of care, explained the risk rr5 factors. patient disagreed, walked out of the room and left the hospital. Vital Signs: 23:06 BP 132 / 79; Pulse 120; Resp 18; Temp 98.7(O); Pulse Ox 99% on R/A; Weight 72.57 kg lp1 (R); Height 5 ft. 4 in. (162.56 cm); Pain 0/10; 23:06 Body Mass Index 27.46 (72.57 kg, 162.56 cm) lp1 ED Course: 22:52 Patient arrived in ED. fj1 22:56 Mikayla English FNP-C [facility]. kb 22:57 Branden Small MD is Attending Physician. kb 22:57 Angel Cifuentes RN is Primary Nurse. rr5 23:09 Triage completed. lp1 23:09 Arm band placed on. lp1 23:11 Patient has correct armband on for positive identification. Bed in low position. Call rr5 light in reach. 23:15 No provider procedures requiring assistance completed. Patient did not have IV access rr5 during this emergency room visit. Administered Medications: No medications were administered Outcome: 23:18 Discharge ordered by . kb 23:18 Patient left the ED. rr5 23:18 Discharged to home ambulatory. rr5 23:18 Condition: unchanged 23:18 Discharge instructions given to patient, ED provider explaining the discharge instruction patient suddenly walked out of the room Instructed on discharge instructions, follow up and referral plans. Demonstrated understanding of needs reinforcement Signatures: Mikayla English FNP-C SCREENING REPRESENTATIVE-Ckb Barbara Luther RN RN lp1 Angel Cifuentes RN RN rr5 Aiden Valencia fj1 Corrections: (The following items were deleted from the chart) 23:11 23:05 General: Appears in no apparent distress. comfortable, Behavior is cooperative, rr5 anxious, Reports hearing voices rr5 23:25 23:05 Musculoskeletal: Circulation, motion, and sensation intact. Capillary refill < 3 rr5 seconds, rr5
--- NOTE | 2020-03-04 23:18 | EDPHYS ---
Physician Documentation [facility] Name: Miriam Fried Age: 40 yrs Sex: Female : 1980 Arrival Date: 03/04/2020 Time: 22:52 Bed 15 Private MD: ED Physician Branden Small HPI: 03/04 23:18 This 40 yrs old Female presents to ER via Ambulatory with complaints of kb Anxiety, COMPLAINT OF HEARING VOICES. 23:18 The patient presents to the emergency department with auditory hallucinations. Onset: kb The symptoms/episode began/occurred 2 week(s) ago. Past psychiatric history: Psychiatric medications include: Klonipin, Prozac. Associated signs and symptoms: Pertinent positives; hallucinations, Pertinent negatives: homicidal ideation, substance abuse, suicide ideation. Severity of symptoms: At their worst the symptoms were moderate in the emergency department the symptoms are unchanged. The patient has experienced similar episodes in the past, chronically. The patient has not recently seen a physician. Pt reports she has been hearing voices ever since she stopped her klonopin and prozac 2 weeks ago. states she has heard voices for a long time, but benzos take the voices away. States she is approx 2 months so they switched her to zoloft instead of her normal meds. 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 Denies suicidal or homicidal ideations. States she is just tired of hearing the voices. . 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 - Social history:: Smoking status: Patient reports the use of cigarette tobacco products, smokes one pack cigarettes per day. ROS: 23:08 Constitutional: Negative for fever, chills, and weight loss, Cardiovascular: Negative kb for chest pain, palpitations, and edema, Respiratory: Negative for shortness of breath, cough, wheezing, and pleuritic chest pain, Abdomen/GI: Negative for abdominal pain, nausea, vomiting, diarrhea, and constipation, Back: Negative for injury and pain, MS/Extremity: Negative for injury and deformity, Skin: Negative for injury, rash, and discoloration, Neuro: Negative for headache, weakness, numbness, tingling, and seizure. 23:08 Psych: Positive for auditory hallucinations, Negative for anxiety, depression, drug dependence, alcohol dependence, visual hallucinations, homicidal ideation, insomnia, suicide gesture, suicidal ideation. Exam: 23:09 Constitutional: This is a well developed, well nourished patient who is awake, alert, kb and in no acute distress. Head/Face: Normocephalic, atraumatic. Chest/axilla: Normal chest wall appearance and motion. Nontender with no deformity. No lesions are appreciated. Cardiovascular: Regular rate and rhythm with a normal S1 and S2. No gallops, murmurs, or rubs. Normal PMI, no JVD. No pulse deficits. Respiratory: Lungs have equal breath sounds bilaterally, clear to auscultation and percussion. No rales, rhonchi or wheezes noted. No increased work of breathing, no retractions or nasal flaring. Abdomen/GI: Soft, non-tender, with normal bowel sounds. No distension or tympany. No guarding or rebound. No evidence of tenderness throughout. Back: No spinal tenderness. No costovertebral tenderness. Full range of motion. Skin: Warm, dry with normal turgor. Normal color with no rashes, no lesions, and no evidence of cellulitis. MS/ Extremity: Pulses equal, no cyanosis. Neurovascular intact. Full, normal range of motion. Neuro: Awake and alert, GCS 15, oriented to person, place, time, and situation. Cranial nerves II-XII grossly intact. Motor strength 5/5 in all extremities. Sensory grossly intact. Cerebellar exam normal. Normal gait. 23:09 Psych: Behavior/mood is pleasant, cooperative, Affect is calm, Oriented to person, place, time, Patient has no thoughts/intents to harm self or others. Judgement / Insight is normal. Memory is normal. Delusions/hallucinations are present and described as pt reports she hears voices and they say all kinds of different things. Vital Signs: 23:06 BP 132 / 79; Pulse 120; Resp 18; Temp 98.7(O); Pulse Ox 99% on R/A; Weight 72.57 kg lp1 (R); Height 5 ft. 4 in. (162.56 cm); Pain 0/10; 23:06 Body Mass Index 27.46 (72.57 kg, 162.56 cm) lp1 MDM: 22:57 Patient medically screened. kb 23:07 Data reviewed: vital signs, nurses notes. Data interpreted: Pulse oximetry: on room air kb is 100 %. Interpretation: normal. 23:14 Counseling: I had a detailed discussion with the patient and/or guardian regarding: the kb historical points, exam findings, and any diagnostic results supporting the discharge/admit diagnosis, the need for outpatient follow up, an OB/Gyne specialist, a psychiatrist, to return to the emergency department if symptoms worsen or persist or if there are any questions or concerns that arise at home. ED course: Discussed pt condition and history with ERP. Recommended pt to call [facility] for outpatient follow up. Pt educated to call [facility] first thing in the morning to see if they can help pt obtain new prescription for zoloft until her medicaid card comes in. Pt states "So ivonne aren't going to write me a prescription for klonopin?" When I told pt we were not going to prescribe klonopin she asked "Am I going to be charged for this? Y'all didn't do anything. You didn't exam me, you didn't listen to my baby's heart beat." Pt has no complaints of abd pain or vaginal bleeding/discharge. Pt educated on need to follow up with OB for care and for further psychiatric medication management during .. Administered Medications: No medications were administered Disposition: 03/05 06:45 Co-signature as Attending Physician, Branden Small MD I agree with the assessment and tw4 plan of care. Disposition: 03/04/20 23:18 Discharged to Home. Impression: Auditory hallucinations. - Condition is Stable. - Medication Reconciliation Form, Thank You Letter, Antibiotic Education, Prescription Opioid Use form. - Follow up: Emergency Department; When: As needed; Reason: Worsening of condition. Follow up: Private Physician; When: 2 - 3 days; Reason: Recheck today's complaints, Continuance of care, Re-evaluation by your physician. Signatures: Mikayla English FNP-C FNP-CkBarbara López RN RN lp1 Branden Small MD MD tw4 Angel Cifuentes RN RN rr5 Corrections: (The following items were deleted from the chart) 03/04 23:18 23:18 03/04/2020 23:18 Discharged to Home. Impression: Auditory hallucinations. rr5 Condition is Stable. Forms are Medication Reconciliation Form, Thank You Letter, Antibiotic Education, Prescription Opioid Use. Follow up: Emergency Department; When: As needed; Reason: Worsening of condition. Follow up: Private Physician; When: 2 - 3 days; Reason: Recheck today's complaints, Continuance of care, Re-evaluation by your physician. kb 23:22 23:09 Constitutional: This is a well developed, well nourished patient who is awake, kb alert, and in no acute distress. Head/Face: Normocephalic, atraumatic. Chest/axilla: Normal chest wall appearance and motion. Nontender with no deformity. No lesions are appreciated. Cardiovascular: Regular rate and rhythm with a normal S1 and S2. No gallops, murmurs, or rubs. Normal PMI, no JVD. No pulse deficits. Respiratory: Lungs have equal breath sounds bilaterally, clear to auscultation and percussion. No rales, rhonchi or wheezes noted. No increased work of breathing, no retractions or nasal flaring. Abdomen/GI: Soft, non-tender, with normal bowel sounds. No distension or tympany. No guarding or rebound. No evidence of tenderness throughout. Back: No spinal tenderness. No costovertebral tenderness. Full range of motion. Skin: Warm, dry with normal turgor. Normal color with no rashes, no lesions, and no evidence of cellulitis. MS/ Extremity: Pulses equal, no cyanosis. Neurovascular intact. Full, normal range of motion. Neuro: Awake and alert, GCS 15, oriented to person, place, time, and situation. Cranial nerves II-XII grossly intact. Motor strength 5/5 in all extremities. Sensory grossly intact. Cerebellar exam normal. Normal gait. kb
[2020-03-05 00:22] VITALS: BP 132/79; TEMP 98.7; O2SAT 99
== END 2020-03-04 23:18 | disposition home or self-care (01) ==
LOC: ER 22:48
DX: O26.891 Other specified pregnancy related conditions, first trimester (principal); O99.341 Other mental disorders complicating pregnancy, first trimester; F34.1 Dysthymic disorder; O99.331 Smoking (tobacco) complicating pregnancy, first trimester; F17.210 Nicotine dependence, cigarettes, uncomplicated; Z3A.08 8 weeks gestation of pregnancy; Z88.5 Allergy status to narcotic agent
CPT/HCPCS: 99281

== ENCOUNTER 2020-07-23 18:25 | Emergency (ER) | payer OTHER ==
--- OUTSIDE RECORDS SUMMARY | 2020-07-23 18:29 | XMS REPORT | Continuity of Care Document ---
:1980 Author Organization [facility] t Address [address] [place] [address] Care Team Providers Name Role Phone UNKNOWN, REFFERING Primary Care Physician Unavailable Ultrasound, Zeynep Attending Clinician Unavailable Doctor Unassigned, [place] Attending Clinician Unavailable Rigo BROUSSARD Attending Clinician Jewel Wang MD Attending Clinician Mary Emanuel Attending Clinician Faculty, [facility] Attending Clinician Unavailable Dipika Mark MD Attending Clinician Jenn Sanz DO Attending Clinician NORMA SIMONS M.D. Attending Clinician Unavailable NORMA SIMONS M.D., M Admitting Clinician Unavailable Problems This patient has no known problems. Allergies, Adverse Reactions, Alerts This patient has no known allergies or adverse reactions. Medications This patient has no known medications. Procedures This patient has no known procedures. Encounters Start End Encounter Admission Attending Care Care Encounter Source Date/Time Date/Time Type Type Clinicians Facility Department ID 2020-04-26 2020-04-26 Resident Care Spec Ultrasound, [facility] [id number] 10:31:59 11:51:31 Visit Zeynep BACK PANEL PADDER [id number] [facility] [id number] MATERNAL [phone] & CHILD [address] [place] [address] 2020-04-26 2020-04-26 Letter Doctor FABRICE [id number] 00:00:00 00:00:00 (Out) Unassigned, ZA [id number] [place] [id number] 2020-04-18 2020-04-18 Orders Doctor FABRICE [id number] 00:00:00 00:00:00 Only Unassigned, ZA [id number] [place] [id number] 2020-03-30 2020-03-30 Case KAVON Sierra [id number] 00:00:00 00:00:00 Management Sanjana Mackay [id number] [place] [id number] Professio [id number] [address] 2020-03-20 2020-03-20 Refill Margareth Wang [facility] [id number] 00:00:00 00:00:00 Jewel Mackay [id number] [place] [id number] Professio [id number] [address] 2020-03-15 2020-03-15 Initial Margareth Wang [facility] [id number] 08:20:24 09:19:11 Cam Thompson [id number] Visit [place] [id number] Professio [id number] [address] 2020-03-15 2020-03-15 Orders Doctor FABRICE [id number] 00:00:00 00:00:00 Only Unassigned, ZA [id number] [place] [facility] [id number] [id number] 2020-03-15 2020-03-15 Telephone Margareth Wang [facility] [id number] 00:00:00 00:00:00 Cam Thompson [id number] [place] [id number] Professio [id number] [address] 2020-03-06 2020-03-06 Emergency Edson Delacruz [facility] [id number] 17:55:54 22:34:00 Mary Mackay [id number] [place] 4.2.7.2.686 [place] [id number] 2020-02-01 2020-02-01 Telephone Faculty, [facility] [id number] 00:00:00 00:00:00 Ang Rmchp BACK PANEL PADDER [id number] [facility] [id number] MATERNAL [id number] & CHILD [address] [place] [address] 2019-06-22 2019-06-22 Emergency Deedee, TRAUMA [id number] 19:07:21 21:13:00 [facility] [place] [id number] [id number] 2019-06-10 2019-06-10 Emergency [facility] [id number] 14:44:46 15:34:00 Sepideh Mackay [id number] [place] 4.2.7.2.686 [place] [id number] 4 2019-06-10 2019-06-10 Orders Doctor FABRICE [id number] 00:00:00 00:00:00 Only Unassigned, ZA [id number] [place] [facility] 4.2.7.2.686 [id number] Results Test Description Test Time Test Comments Results Result Comments Source RPR, Qual 2017-12-30 14:45:00 Test Item Value Reference Range Interpretation Comme nts RPR (test code = RPR) Non-Reactive Non-Reactive N Thyroid Stimulating Hormone (TSH)2017-12-30 07:29:00 Test Item Value Reference Range Interpretation Comments TSH (test code = TSH) 2.42 mIU/mL 0.270-4.200 N BHCG, Serum, [id number] 07:29:00 Test Item Value Reference Range Interpretation Comments B hCG, Quant (test <1 mIU/mL Weeks of Gestation code = BHCGQT) Ranges (mIU/m L)3 weeks 5. 40 - 72.04 weeks 10.2 - 7085 w eeks 217 - 40587 weeks 152 - 663047 weeks 4059 - 153 7678 weeks 58330 - 1364865 weeks 591 09 - 47514115 weeks 42777 - 1704 0912 weeks 10160 - 83613770 week s 73579 - 93 95923 weeks 14874 - 6615085 weeks 8904 - 5533 217 weeks 82 40 - 1468507 weeks 9649 - 33670 Lipid [id number] 07:19:00 Test Item Value Reference Range Interpretation Comments Cholesterol (test 132 mg/dL 0-200 N code = CHOL) Triglycerides (test 122 mg/dL 9-200 N code = TRIG) HDL (test code = 21 mg/dL 50-60 L HDL) Chol/HDL (test code 6.3 Ratio 0.0-4.4 H = CHOLPHDL) LDL, Calculated 87 0-130 N (NOTE)RISK O F HEART (test code = LDLC) DISEASEPu blished by [place] Heart AssociationAnal yte Optim al Boderline Increased RiskC HOL <200 200-239 >240TRI G <150 150-199 >200HDL Male: >60 <40HDL Female: >60 <50 LDL < 100 130-15 9 >160 LDL NEAR OPTIMAL IS 100- 129 VLDL (test code = 24 mg/dL 5-40 N VLDL) LDL/HDL (test code = 4 LDLPHDL) [id number] 04:24:00 Test Item Value Reference Range Interpretation Comments Amphetamine (test code Negative Negative N For d iagnostic purposes = AMPH) only, positive results should always b e assessedin conjunctionwith the patient's medic al history,clinica l examination and otherfindings.T o fulfill legal requirements, a more specific altern ate chemical method must be used inorder to obtain a Confirmed luther lytical result. GC/MS i s the preferred confi rmatory method. Barbiturates (test Negative Negative N code = ARNOLD) Benzodiazepine (test POSITIVE Negative A code = MOHINDER) Cocaine (test code = Negative Negative N COCA) Methadone (test code = Negative Negative N MTHD) Opiates (test code = Negative Negative N OPIA) PCP (test code = PCP) Negative Negative N Propoxyphene (test Negative Negative N code = PROPOX) THC (test code = THC) POSITIVE Negative A Urinalysis [id number] 03:47:00 Test Item Value Reference Range Interpretation Comments Color (test code = [place] Yellow,Straw,Pl A The va [place]ue [place] COLOR) yellow originally released by [employer] on 12/30/2017 03:4 2 waschanged to P ink by [employer] on 12/30/2017 03:4 7 Clarity (test code = Sl Cloudy Clear A The tomi ue Clear CLAR) originally released by [employer] on 12/30/2017 03:4 2 waschanged to S l Cloudy by BRIANA PARHAM on 12/30/2017 03:47 Specific [place] 1.006 1.001-1.035 N (test code = SPGR) pH (test code = PH) 6.5 5.0-9.0 N Ketone (test code = Negative mg/dL Negative N KET) Glucose (test code = Negative mg/dL Negative N GLUCUR) Protein (test code = Negative mg/dL Negative N PROT) Bilirubin (test code Negative mg/dL Negative N = BILI) Occult Blood (test Large Negative A code = UDOB) Urobilinogen (test 0.2 mg/dL 0.2-1.0 N code = UROB) Nitrite (test code = Negative Negative N NIT) Leuk Esterase (test Small Negative A code = LEUK) Micros Exam (test Indicated code = MEXAM) Epithelial Cells None /LPF 0-30 A (test code = EPI) WBC, Urine (test 0-2 /HPF 0-5 A code = UWBC) RBC, Urine (test 51-100 /HPF 0-5 A code = URBC) Bacteria (test code Few /HPF = BACT) Comprehensive Metabolic [id number] 01:00:00 Test Item Value Reference Range Interpretation Comments Sodium (test code = 139 mmol/L 135-145 N NA) Potassium (test 3.4 mmol/L 3.5-5.1 L code = K) Chloride (test code 101 mmol/L 98-105 N = CL) Carbon Dioxide 28 mmol/L 22-29 N (test code = CO2) Glucose (test code 102 mg/dL 70-115 N = GLU) Blood Urea Nitrogen 6 mg/dL 6-20 N (test code = BUN) Creatinine (test 0.7 mg/dL 0.5-0.9 N code = CREAT) Calcium (test code 9.4 mg/dL 8.3-10.5 N = CA) Prot Total (test 6.6 g/dL 6.4-8.3 N code = TP) Albumin (test code 4.3 g/dL 3.5-5.2 N = ALB) A/G Ratio (test 1.9 Ratio code = AGRATIO) Globulin (test code 2.3 2.9-3.1 L = GLOB) Bili Total (test <0.1 mg/dL 0.1-0.9 L code = TBIL) Alk Phos (test code 84 U/L 35-104 N = APHOS) AST (test code = 16 U/L 1-32 N AST) ALT (test code = 11 U/L 1-33 N ALT) BUN/Creatinine 8.6 Ratio (test code = BCRATIO) Anion Gap (test 10 mmol/L 7-16 N code = AGAP) Estimated GFR (test >60 eGFR (es timated code = GFR) mL/min/1.73m2 Glomerular Luisito tration Rate) is an est imated value,calculate d from the patient's s elke creatinine usin g the MDRD equation.I t is NOT the patient 's actual GFR. The eGFR provides a more clinicallyusefu l measure of kidn ey disease than se rum creatinine alone.This calculation shannon es sex and race into account, if the informationis provided. If th e race is not provided , and the patient isAfrican-Ameri can, multiply by 1.2 12. If sex is not prov ided, and thepatient is female, multipl y by 0.742. Results for patients <18 ye ars ofage have not been validated by th e MDRD study and shoul d be interpretedwith caution.eGFR Re sult Interpretation: eGFR > or = 60 is in t he Normal RangeeGF R < 60 may mean kidney diseaseeGFR < 1 5 may mean kidney failureRange s recommended by the National Kidney Foundation,http ://nkd ep.nih.gov Alcohol/Ethanol, [id number] 01:00:00 Test Item Value Reference Range Interpretation Comments Alcohol, Ethyl <0.01 g/dL 0.00-0.01 N Intoxicated 0.080 (test code = ETOH) g/dL or m ore CBC with [id number] 00:45:00 Test Item Value Reference Range Interpretation Comments WBC (test code = WBC) 12.0 K/cumm 4.4-10.5 H RBC (test code = RBC) 4.09 M/cumm 3.75-5.20 N Hemoglobin (test code = HGB) 12.4 gm/dL 12.2-14.8 N Hematocrit (test code = HCT) 38.3 % 36.5-44.4 N MCV (test code = MCV) 93.8 fL 80-100 N MCH (test code = MCH) 30.4 pg 27.0-32.5 N MCHC (test code = MCHC) 32.5 g/dL 32.0-37.5 N RDW (test code = RDW) 13.4 % 11.5-14.5 N Platelet Count (test code = 393 K/cumm 140-440 N PLTCT) MPV (test code = MPV) 9.3 fL Diff Method (test code = DIFFM) Auto Neutrophil (test code = NEUT) 53.3 % 36-70 N Lymphocyte (test code = LYMPH) 31.8 % 12-44 N Monocyte (test code = MONO) 4.1 % 0-11 N Eosinophil (test code = EOS) 10.3 % 0-7 H Basophil (test code = BASO) 0.5 % 0-2 N Neutro Abs (test code = ANEUT) 6.4 K/cumm 1.6-7.4 N Lymph Abs (test code = ALYMPH) 3.8 K/cumm 0.5-4.6 N [place] Abs (test code = AMONO) 0.5 K/cumm 0.0-1.2 N Eos Abs (test code = AEOS) 1.24 K/cumm 0.00-0.74 H Baso Abs (test code = ABASO) 0.1 K/cumm 0.00-0.21 N
[2020-07-23 19:56] LABS: Absolute Lymphocytes (CBC) 2.6 K/uL (0.7-4.9); Basophils % 0.3 % (0-1.3); Hematocrit 28.7 % (36.0-45.0); Lymphocytes % 17.3 % (15.3-44.8); MPV 7.9 fL (7.6-11.3)
[2020-07-23 19:58] LABS: Protime INR 0.97
[2020-07-23 20:11] LABS: ALT/SGPT 18 U/L (12-78); AST/SGOT 13 U/L (15-37); Albumin 2.7 g/dL (3.4-5.0); Alkaline Phosphatase 142 U/L (45-117); BUN Blood Urea Nitrogen 5 mg/dL (7-18); Bicarbonate 25 mmol/L (21-32); Bilirubin Direct < 0.1 mg/dL (0-0.2); Bilirubin Total 0.3 mg/dL (0.2-1.0); Glucose Level 133 mg/dL (74-106); Potassium 3.2 mmol/L (3.5-5.1); Protein, Total 7.1 g/dL (6.4-8.2); Sodium Level 137 mmol/L (136-145)
[2020-07-23 21:21] LABS: Urine Blood TRACE (NEG); Urine Glucose NEGATIVE (NEG); Urine Protein 1+ (NEG)
[2020-07-23 21:53] LABS: Barbiturates NEGATIVE (NEGATIVE); Benzodiazepines POSITIVE (NEGATIVE); Cocaine NEGATIVE (NEGATIVE); METHAMPHETAM NEGATIVE (NEGATIVE); Methadone NEGATIVE (NEGATIVE); Opiates NEGATIVE (NEGATIVE); Phencyclidine NEGATIVE (NEGATIVE); THC Cannibis NEGATIVE (NEGATIVE)
[2020-07-23] MEDS ORDERED: POTASSIUM 25 MEQ EFFERV TAB ONE (22:41)
--- NOTE | 2020-07-23 23:39 | EDPHYS ---
Physician Documentation [facility] Name: Miriam Fried Age: 40 yrs Sex: Female : 1980 Arrival Date: 07/23/2020 Time: 18:29 Bed 17 Private MD: ED Physician Branden Small HPI: 07/24 06:20 This 40 yrs old Female presents to ER via Ambulatory with complaints of Psych tw4 Problem. 06:20 The patient presents to the emergency department with psychosis, has experienced tw4 auditory hallucinations, has experienced visual hallucinations. Onset: The symptoms/episode began/occurred today. Past psychiatric history: Prior diagnosis: schizophrenia. Associated signs and symptoms: The patient has no apparent associated signs or symptoms. The patient has not experienced similar symptoms in the past. 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 - Social history:: Smoking status: Patient reports the use of cigarette tobacco products, smokes one-half pack cigarettes per day. ROS: 07/24 06:20 Constitutional: Negative for fever, chills, and weight loss, Eyes: Negative for injury, tw4 pain, redness, and discharge, Cardiovascular: Negative for chest pain, palpitations, and edema, Respiratory: Negative for shortness of breath, cough, wheezing, and pleuritic chest pain, Abdomen/GI: Negative for abdominal pain, nausea, vomiting, diarrhea, and constipation, MS/Extremity: Negative for injury and deformity, Skin: Negative for injury, rash, and discoloration. Neuro: Negative for headache, weakness, numbness, tingling, and seizure. Neuro: Positive for Psych: Positive for auditory hallucinations, visual hallucinations. Exam: 06:20 Constitutional: This is a well developed, well nourished patient who is awake, alert, tw4 and in no acute distress. Head/Face: Normocephalic, atraumatic. Chest/axilla: Normal chest wall appearance and motion. Nontender with no deformity. No lesions are appreciated. Cardiovascular: Regular rate and rhythm with a normal S1 and S2. No gallops, murmurs, or rubs. Normal PMI, no JVD. No pulse deficits. Respiratory: Lungs have equal breath sounds bilaterally, clear to auscultation and percussion. No rales, rhonchi or wheezes noted. No increased work of breathing, no retractions or nasal flaring. Abdomen/GI: Soft, non-tender, with normal bowel sounds. No distension or tympany. No guarding or rebound. No evidence of tenderness throughout. Back: No spinal tenderness. No costovertebral tenderness. Full range of motion. Skin: Warm, dry with normal turgor. Normal color with no rashes, no lesions, and no evidence of cellulitis. MS/ Extremity: Pulses equal, no cyanosis. Neurovascular intact. Full, normal range of motion. 06:20 Psych: Behavior/mood is cooperative, Affect is calm, Oriented to person, place, time, Patient has no thoughts/intents to harm self or others. Judgement / Insight is normal. Vital Signs: 07/23 18:47 BP 155 / 78; Pulse 115; Resp 16 S; Temp 98.2(O); Pulse Ox 98% on R/A; Weight 82.55 kg ca1 (R); Height 5 ft. 4 in. (162.56 cm) (R); Pain 1/10; 20:00 BP 121 / 63; Pulse 100; Resp 16; Temp 98.7; Pulse Ox 99% on R/A; Pain 0/10; fu 21:30 BP 130 / 70; Pulse 99; Resp 16; Pulse Ox 99% on R/A; Pain 0/10; fu 23:00 BP 125 / 69; Pulse 98; Resp 18; Pulse Ox 98% on R/A; Pain 0/10; fu 18:47 Body Mass Index 31.24 (82.55 kg, 162.56 cm) ca1 MDM: 19:22 Patient medically screened. tw4 07/24 06:20 Differential diagnosis: drug withdrawal. acute psychotic break. Data reviewed: vital tw4 signs, nurses notes. Data interpreted: Pulse oximetry: Interpretation: normal. Counseling: I had a detailed discussion with the patient and/or guardian regarding: the historical points, exam findings, and any diagnostic results supporting the discharge/admit diagnosis, lab results, the need for outpatient follow up. Special discussion: I discussed with the patient/guardian in detail that at this point there is no indication for admission to the hospital. It is understood, however, that if the symptoms persist or worsen the patient needs to return immediately for re-evaluation. ED course: Pt denies suicidal ideation admits only to hearing vocies. 07/23 19:22 Order name: Acetaminophen; Complete Time: 22:15 07/23 22:15 Interpretation: Normal except: ACETA < 2.0. 07/23 19:22 Order name: Basic Metabolic Panel; Complete Time: 22:15 07/23 22:15 Interpretation: Normal except: K 3.2; GLUC 133; BUN 5; CA 8.0. 07/23 19:22 Order name: CBC with Diff; Complete Time: 22:15 07/23 22:16 Interpretation: Normal except: WBC 15.2; RBC 3.10; HGB 10.0; HCT 28.7; ELSIE% 76.7; NEUT tw4 A 11.7. 07/23 19:22 Order name: ETOH Level; Complete Time: 22:15 07/23 22:19 Interpretation: Within normal limits: ETOH < 10. 07/23 19:22 Order name: Hepatic Function; Complete Time: 22:15 07/23 22:18 Interpretation: Normal except: AST 13; ALK 142; ALB 2.7; GLOB 4.4; A/G 0.6. 07/23 19:22 Order name: PT-INR; Complete Time: 22:15 07/23 19:22 Order name: Ptt, Activated; Complete Time: 22:15 07/23 19:22 Order name: Salicylate; Complete Time: 22:15 07/23 19:22 Order name: Urine Drug Screen; Complete Time: 22:15 07/23 22:18 Interpretation: Normal except: BZO POSITIVE. 07/23 19:22 Order name: EKG; Complete Time: 19:23 07/23 19:22 Order name: EKG - Nurse/Tech; Complete Time: 19:56 07/23 20:38 Order name: Urine --Ancillary (enter results); Complete Time: 22:15 tt3 07/23 22:18 Interpretation: Normal except: URINE PREG POS. tw4 07/23 20:38 Order name: Urine Dipstick--Ancillary (enter results); Complete Time: 22:15 tt3 07/23 22:19 Interpretation: Normal except: UBLD TRACE; UPROT 1+. tw4 07/23 19:22 Order name: IV Saline Lock; Complete Time: 19:42 tw4 07/23 19:22 Order name: Labs collected and sent; Complete Time: 19:42 tw4 07/23 19:22 Order name: Urine Dipstick-Ancillary (obtain specimen); Complete Time: 20:39 tw4 EC:58 Rate is 116 beats/min. Rhythm is regular. QRS [place] is Normal. NC interval is normal. tw4 QRS interval is normal. QT interval is normal. No Q waves. No ST changes noted. Clinical impression: Sinus tachycardia. Interpreted by me. Reviewed by me. Administered Medications: 07/23 22:33 Drug: Potassium Effervescent Tablet 50 mEq Route: PO; fu Disposition: 07/23/20 23:38 Discharged to Home. Impression: Unspecified psychosis not due to a substance or known physiological condition. - Condition is Stable. - Discharge Instructions: Psychosis. - Medication Reconciliation Form, Thank You Letter, Antibiotic Education, Prescription Opioid Use form. - Follow up: Private Physician; When: Upon discharge from the Emergency Department; Reason: Recheck today's complaints, Continuance of care, Re-evaluation by your physician. - Problem is new. - Symptoms have improved. Signatures: [facility] James Quinteros RN RN fu Wadley, Terrence, MD MD tw4 Violette Kellogg RN RN ca1 Corrections: (The following items were deleted from the chart) 07/24 00:05 07/23 23:38 07/23/2020 23:38 Discharged to Home. Impression: Unspecified psychosis not fu due to a substance or known physiological condition. Condition is Stable. Forms are Medication Reconciliation Form, Thank You Letter, Antibiotic Education, Prescription Opioid Use. Follow up: Private Physician; When: Upon discharge from the Emergency Department; Reason: Recheck today's complaints, Continuance of care, Re-evaluation by your physician. Problem is new. Symptoms have improved. tw4
--- NOTE | 2020-07-23 23:39 | ER ---
Nurse's Notes [facility] Name: Miriam Fried Age: 40 yrs Sex: Female : 1980 Arrival Date: 07/23/2020 Time: 18:29 Bed 17 Private MD: Diagnosis: Unspecified psychosis not due to a substance or known physiological condition Presentation: 07/23 18:47 Chief complaint: Patient states: I am hearing voices for a couple years now. I take ca1 Zoloft and Gabapentin. I still take these medication, but I am still hearing voices. I need to go to a mental institution. I don't have suicidal thoughts now cause I feel safe here. But the voices do not let me sleep. Coronavirus screen: Client denies travel out of the [place] in the last 14 days. At this time, the client does not indicate any symptoms associated with coronavirus-19. Ebola Screen: Patient negative for fever greater than or equal to 101.5 degrees Fahrenheit, and additional compatible Ebola Virus Disease symptoms Patient denies exposure to infectious person. Patient denies travel to an Ebola-affected area in the 21 days before illness onset. No symptoms or risks identified at this time. Initial Sepsis Screen: Does the patient meet any 2 criteria? No. Patient's initial sepsis screen is negative. Does the patient have a suspected source of infection? No. Patient's initial sepsis screen is negative. Risk Assessment: Do you want to hurt yourself or someone else? Patient reports no desire to harm self or others. Note Pt is 7 months , [facility]. Was seen by L\\T\\D today, cleared. States, "they say that the baby is okay". Onset of symptoms was July 23, 2020. 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 - Social history:: Smoking status: Patient reports the use of cigarette tobacco products, smokes one-half pack cigarettes per day. Screenin:00 Abuse screen: Denies threats or abuse. Nutritional screening: No deficits noted. fu Tuberculosis screening: No symptoms or risk factors identified. Fall Risk None identified. Assessment: 19:09 General: Appears in no apparent distress. Behavior is calm, cooperative, appropriate fu for age. General: patient reports hearing voices. denies thoughts of hurting self or others. Pain: Denies pain. Neuro: Level of Consciousness is Oriented to Event Specialist Food Demonstrator are. Cardiovascular: Denies chest pain, palpitations. Respiratory: Airway is patent. GI: Reports vomiting. : Denies burning with urination. EENT: No signs and/or symptoms were reported regarding the EENT system. Derm: No signs and/or symptoms reported regarding the dermatologic system. Musculoskeletal: No signs and/or symptoms reported regarding the musculoskeletal system. 20:00 Reassessment: Patient appears in no apparent distress at this time. No changes from fu previously documented assessment. Patient and/or family updated on plan of care and expected duration. Pain level reassessed. Patient is alert, oriented x 3, equal unlabored respirations, skin warm/dry/pink. Patient denies pain at this time. 21:00 Reassessment: Patient appears in no apparent distress at this time. No changes from fu previously documented assessment. Patient and/or family updated on plan of care and expected duration. Pain level reassessed. Patient is alert, oriented x 3, equal unlabored respirations, skin warm/dry/pink. 22:00 Reassessment: Patient appears in no apparent distress at this time. No changes from fu previously documented assessment. Patient and/or family updated on plan of care and expected duration. Pain level reassessed. Patient is alert, oriented x 3, equal unlabored respirations, skin warm/dry/pink. Vital Signs: 18:47 BP 155 / 78; Pulse 115; Resp 16 S; Temp 98.2(O); Pulse Ox 98% on R/A; Weight 82.55 kg ca1 (R); Height 5 ft. 4 in. (162.56 cm) (R); Pain 1/10; 20:00 BP 121 / 63; Pulse 100; Resp 16; Temp 98.7; Pulse Ox 99% on R/A; Pain 0/10; fu 21:30 BP 130 / 70; Pulse 99; Resp 16; Pulse Ox 99% on R/A; Pain 0/10; fu 23:00 BP 125 / 69; Pulse 98; Resp 18; Pulse Ox 98% on R/A; Pain 0/10; fu 18:47 Body Mass Index 31.24 (82.55 kg, 162.56 cm) ca1 ED Course: 18:29 Patient arrived in ED. mr 18:50 Triage completed. ca1 18:52 Arm band placed on right wrist. ca1 19:01 James Quinteros, MARY is Primary Nurse. fu 19:22 Branden Small MD is Attending Physician. tw4 19:35 Inserted saline lock: 20 gauge in right antecubital area, using aseptic technique. fu Blood collected. 19:41 Acetaminophen Sent. fu 19:41 Basic Metabolic Panel Sent. fu 19:41 CBC with Diff Sent. fu 19:42 ETOH Level Sent. fu 19:42 Hepatic Function Sent. fu 19:42 PT-INR Sent. fu 19:42 Ptt, Activated Sent. fu 19:42 Salicylate Sent. fu 20:39 Urine Drug Screen Sent. fu 20:55 Urine Dipstick--Ancillary (enter results) Sent. fu 20:55 Urine --Ancillary (enter results) Sent. fu 21:00 Placed in gown. Bed in low position. Side rails up X 1. Pulse ox on. NIBP on. fu 23:00 No provider procedures requiring assistance completed. fu 23:26 Contacted [facility] per directed. Spoke with Halima and provided her with the tt3 information on the patient. Hailma stated that it didn't seem like a crisis that we could provide the patient with their number since it is a public number and they could direct the patient to outpatient help. 07/24 00:00 IV discontinued, bleeding controlled, Pressure dressing applied. fu Administered Medications: 07/23 22:33 Drug: Potassium Effervescent Tablet 50 mEq Route: PO; fu Outcome: 23:38 Discharge ordered by . tw4 07/24 00:00 Discharged to home ambulatory. fu Condition: good Discharge instructions given to patient, Instructed on discharge instructions, follow up and referral plans. Demonstrated understanding of instructions, follow-up care. 00:05 Patient left the ED. fu Signatures: Yee Knapp mr Neli, James, RN RN fu Branden Small MD MD tw4 Violette Kellogg RN RN ca1 Tali, Santy tt3 Corrections: (The following items were deleted from the chart) 07/23 18:51 18:47 Onset of symptoms was July 23, 2020 ca1 ca1 18:47 Note Was seen by L\\T\\D today, cleared. States, "they say that the baby is okay" ca1 ca1
[2020-07-24 00:14] VITALS: BP 121/63; TEMP 98.7; O2SAT 99
--- NOTE | 2020-07-24 12:17 | EKG ---
Test Date: 2020-07-23 Test Time: 19:52:53 Meter Engineer: MEGHNA MEASUREMENT RESULTS: Intervals: Rate: 116 ID: [id number] QRSD: 80 QT: 340 QTc: 472 [place]: P: 64 ID: [id number] QRS: 29 T: 30 INTERPRETIVE STATEMENTS: Sinus tachycardia Otherwise normal ECG Compared to ECG 07/11/2019 01:38:20 Myocardial infarct finding no longer present Electronically Signed On 07-24-20 12:15:07 CDT by Steven Oh
== END 2020-07-24 00:05 | disposition home or self-care (01) ==
LOC: ER 18:25
DX: F29 Unspecified psychosis not due to a substance or known physiological condition (principal); F41.8 Other specified anxiety disorders; F90.9 Attention-deficit hyperactivity disorder, unspecified type; F17.210 Nicotine dependence, cigarettes, uncomplicated; Z88.5 Allergy status to narcotic agent
CPT/HCPCS: 36415; 80048; 80076; 80307; 80320; 80329; 81003; 81025; 85025; 85610; 85730; 93005; 99284

== ENCOUNTER 2020-07-24 11:53 | Emergency (ER) | payer OTHER ==
--- OUTSIDE RECORDS SUMMARY | 2020-07-24 11:56 | XMS REPORT | Continuity of Care Document ---
:1980 Author Organization [facility] t Address [address] [place] [address] Care Team Providers Name Role Phone UNKNOWN, REFFERING Primary Care Physician Unavailable Ultrasound, Zeynep Attending Clinician Unavailable Doctor Unassigned, [place] Attending Clinician Unavailable Rigo BROUSSARD Attending Clinician Jewel Wang MD Attending Clinician Mary Emanuel Attending Clinician Faculty, [facility] Attending Clinician Unavailable Dipika Mark MD Attending [...] Type Clinicians Facility Department ID 2020-04-26 2020-04-26 Seat Joiner Salvador, [facility] [id number] 10:31:59 11:51:31 Visit Zeynep REPROGRAPHICS ASSOCIATE [id number] [facility] [id number] MATERNAL [phone] & CHILD [address] [place] [address] 2020-04-26 2020-04-26 Letter Doctor FABRICE [id number] 00:00:00 00:00:00 (Out) Unassigned, ZA [id number] [facility] [id number] [id number] 2020-04-18 2020-04-18 Orders Doctor FABRICE [id number] 00:00:00 00:00:00 Only Unassigned, ZA [id number] [facility] [id number] [id number] 2020-03-30 2020-03-30 Case KAVON Sierra [id number] 00:00:00 00:00:00 Management Sanjana Mackay [id number] [place] [id number] Professio [id number] [address] 2020-03-20 2020-03-20 Refill Margareth Wang [facility] [id number] 00:00:00 00:00:00 Jewel Mackay [id number] [place] [id number] Professio [phone] [address] 2020-03-15 2020-03-15 Initial Margareth Wang [facility] [id number] 08:20:24 09:19:11 Jewel Mackay [id number] Visit [place] [id number] Professio [phone] [address] 2020-03-15 2020-03-15 Orders Doctor FABRICE 1.2.840.114 [id number] 00:00:00 00:00:00 Only Unassigned, ZA [id number] [facility] [id number] [id number] 2020-03-15 2020-03-15 Telephone Margareth Wang [facility] 1.2.840.114 [id number] 00:00:00 00:00:00 Jewel Mackay [id number] [place] [id number] Professio [phone] [address] 2020-03-06 2020-03-06 Emergency Edson Delacruz [facility] 1.2.840.114 [id number] 17:55:54 22:34:00 Mary Mackay [id number] [place] [id number] [place] [id number] 084 2020-02-01 2020-02-01 Telephone Faculty, [facility] 1.2.840.114 [id number] 00:00:00 00:00:00 Ang Rmchp REPROGRAPHICS ASSOCIATE [id number] [facility] [id number] MATERNAL [phone] & CHILD [address] [place] [address] 2019-06-22 2019-06-22 Emergency Deedee, TRAU[facility] [id number] 19:07:21 21:13:00 [facility] [id number] 014 2019-06-10 2019-06-10 Emergency [facility] 1.2.840.114 [id number] 14:44:46 15:34:00 Sepideh Mackay [id number] [place] [id number] [place] [id number] [id number] 2019-06-10 2019-06-10 Orders Doctor FABRICE 1.2.840.114 [id number] 00:00:00 00:00:00 Only Unassigned, ZA [id number] [facility] [id number] [id number] Results Test Description Test Time Test Comments Results Result Comments Source RPR, Qual 2017-12-30 14:45:00 Test Item Value Reference Range Interpretation Comme nts RPR (test code = RPR) Non-Reactive Non-Reactive N Thyroid Stimulating Hormone (TSH)2017-12-30 07:29:00 Test Item Value Reference Range Interpretation Comments TSH (test code = TSH) 2.42 mIU/mL 0.270-4.200 N BHCG, Serum, [id number] 07:29:00 Test Item Value Reference Range Interpretation Comments B hCG, Quant (test <1 mIU/mL Weeks of Gestation code = BHCGQT) Ranges (mIU/m L)3 weeks 5. 40 - 72.04 weeks 10.2 - 7085 w eeks 217 - 45292 weeks 152 - 988237 weeks 4059 - 153 7678 weeks 37203 - 3503034 weeks 591 09 - 82550596 weeks 35063 - 1704 0912 weeks 60456 - 65841719 week s 35174 - 93 00628 weeks 27013 - 6615678 weeks 8904 - 5533 217 weeks 82 40 - 0437624 weeks 9649 - 55825 Lipid [id number] 07:19:00 Test Item Value Reference Range Interpretation Comments Cholesterol (test 132 mg/dL 0-200 N code = CHOL) Triglycerides (test 122 mg/dL 9-200 N code = TRIG) HDL (test code = 21 mg/dL 50-60 L HDL) Chol/HDL (test code 6.3 Ratio 0.0-4.4 H = CHOLPHDL) LDL, Calculated 87 0-130 N (NOTE)RISK O F HEART (test code = LDLC) DISEASEPu blished by [place] Heart AssociationAnal yte Optim al Boderline Increased RiskC HOL <200 200-239 >240TRI G <150 150-199 >200HDL Male: >60 <40HDL Female: >60 <50 LDL < 100 130-15 9 >160 LDL NEAR OPTIMAL IS 100- 129 VLDL (test code = 24 mg/dL 5-40 N VLDL) LDL/HDL (test code = 4 LDLPHDL) [id number] 04:24:00 Test Item Value Reference Range Interpretation [...] code = THC) POSITIVE Negative A Urinalysis [id number] 03:47:00 Test Item Value Reference Range Interpretation Comments Color (test code = [place] Yellow,Straw,Pl A The va lue [place] COLOR) yellow originally released by [employer] on 12/30/2017 03:4 2 waschanged to P ink by [employer] on 12/30/2017 03:4 7 Clarity (test code = Sl Cloudy Clear A The tomi ue Clear CLAR) originally released by [employer] on 12/30/2017 03:4 2 waschanged to S l Cloudy by [employer]ARRENEDM[employer] on 12/30/2017 03:47 Specific [place] 1.006 1.001-1.035 N (test code = SPGR) [...] code Few /HPF = BACT) Comprehensive Metabolic [id number] 01:00:00 Test Item Value Reference Range Interpretation [...] the National Kidney Foundation,http ://nkd ep.nih.gov Alcohol/Ethanol, [id number] 01:00:00 Test Item Value Reference Range Interpretation Comments Alcohol, Ethyl <0.01 g/dL 0.00-0.01 N Intoxicated 0.080 (test code = ETOH) g/dL or m ore CBC with [id number] 00:45:00 Test Item Value Reference Range Interpretation [...] code = ALYMPH) 3.8 K/cumm 0.5-4.6 N [place] Abs (test code = AMONO) 0.5 K/cumm 0.0-1.2 N Eos Abs (test code = AEOS) 1.24 K/cumm 0.00-0.74 H Baso Abs (test code = ABASO) 0.1 K/cumm 0.00-0.21 N
[2020-07-24 12:39] LABS: Urine Blood TRACE (NEG); Urine Glucose NEGATIVE (NEG); Urine Protein NEGATIVE (NEG); Urine pH 7.5 (5.0-7.0)
[2020-07-24] MEDS ORDERED: DIAZEPAM 2 MG TABLET ONE (12:57)
[2020-07-24 13:03] LABS: Absolute Lymphocytes (CBC) 2.2 K/uL (0.7-4.9); Basophils % 0.4 % (0-1.3); Hematocrit 29.3 % (36.0-45.0); Lymphocytes % 13.9 % (15.3-44.8); MPV 7.9 fL (7.6-11.3); RBC Red Blood Cell Count 3.13 M/uL (3.86-4.86)
[2020-07-24 13:07] LABS: Protime INR 0.87
[2020-07-24 13:21] LABS: ALT/SGPT 12 U/L (12-78); AST/SGOT 14 U/L (15-37); Albumin 2.8 g/dL (3.4-5.0); Alkaline Phosphatase 139 U/L (45-117); BUN Blood Urea Nitrogen 5 mg/dL (7-18); Bicarbonate 25 mmol/L (21-32); Bilirubin Direct < 0.1 mg/dL (0-0.2); Bilirubin Total 0.2 mg/dL (0.2-1.0); Glucose Level 107 mg/dL (74-106); Potassium 3.9 mmol/L (3.5-5.1); Protein, Total 6.8 g/dL (6.4-8.2); Sodium Level 138 mmol/L (136-145)
[2020-07-24 13:45] LABS: Barbiturates NEGATIVE (NEGATIVE); Benzodiazepines POSITIVE (NEGATIVE); Cocaine NEGATIVE (NEGATIVE); METHAMPHETAM NEGATIVE (NEGATIVE); Methadone NEGATIVE (NEGATIVE); Opiates NEGATIVE (NEGATIVE); Phencyclidine NEGATIVE (NEGATIVE); THC Cannibis NEGATIVE (NEGATIVE)
--- NOTE | 2020-07-24 14:09 | RAD REPORT ---
EXAM DESCRIPTION: US - OB Limited - 07/24/2020 1:49 pm CLINICAL HISTORY: ABD CRAMPING, COMPARISON: No comparisons FINDINGS: Limited Ob ultrasound examination was performed. Single cephalic gestation is identified. Heart rate was 132 BPM. No hydrocephalus or intracranial abnormality identifiable. Femur length of 5.26 cm corresponds to a 28 week 0 day age. Corresponding YESSY is 10/16/2020. Amniotic fluid index is normal at 15.20 cm. Posterior placenta shows no abruption or marginal hematom a. IMPRESSION: Limited OB ultrasound, as detailed above, shows no significant or suspicious finding.
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
[2020-07-24] MEDS ORDERED: FAMOTIDINE 20 MG TAB ONE (15:43)
[2020-07-24] MEDS ORDERED: ACETAMINOPHEN 500 MG TAB ONE (16:22)
[2020-07-25 09:25] VITALS: O2SAT 98
[2020-07-25 09:26] VITALS: BP 137/75; TEMP 98.5
--- NOTE | 2020-07-25 12:05 | EKG ---
Test Date: 2020-07-24 Test Time: 12:53:27 Fish Processor: JIA MEASUREMENT RESULTS: Intervals: Rate: 101 AR: 120 QRSD: 76 QT: 346 QTc: 448 [place]: P: 53 AR: 120 QRS: 25 T: 23 INTERPRETIVE STATEMENTS: Sinus tachycardia Otherwise normal ECG Compared to ECG 07/23/2020 19:52:53 No significant changes Electronically Signed On 07-25-20 12:01:39 CDT by Steven Oh
== END 2020-07-25 09:07 ==
LOC: ER 11:53
DX: O99.342 Other mental disorders complicating pregnancy, second trimester (principal); F25.9 Schizoaffective disorder, unspecified; O99.332 Smoking (tobacco) complicating pregnancy, second trimester; F17.210 Nicotine dependence, cigarettes, uncomplicated; Z20.828 Contact with and (suspected) exposure to other viral communicable diseases; Z3A.28 28 weeks gestation of pregnancy
CPT/HCPCS: 93005; 85025; 80048; 36415; 80320; 80329 ×2; 81025; 85610; 80076; 80307 ×8; 85730; 81003; 76815; 99285; U0003; 76805

== ENCOUNTER 2021-03-16 13:40 | Emergency (ER) | payer OTHER ==
--- OUTSIDE RECORDS SUMMARY | 2021-03-16 13:44 | XMS REPORT | Continuity of Care Document ---
:1980 Author Organization [facility] t Address [address] [place] [place] [address] Care Team Providers Name Role Phone UNKNOWN, REFFERING Primary Care Physician Unavailable Rj Diez Attending Clinician Unavailable Daniel Diez Attending Clinician Unavailable Jewel Wang MD Attending Clinician NORMA SIMONS M.D. Attending Clinician Unavailable Daniel Diez Admitting Clinician Unavailable Jewel Wang MD Admitting Clinician NORMA SIMONS M.D., M Admitting Clinician Unavailable Payers Payer Name Policy Type Policy Number Effective Date Expiration Date S ource Problems This patient has no known problems. Allergies, Adverse Reactions, Alerts Allergy Allergy Status Severity Reaction(s) Onset Inactive Treating Comm ents Source Name Type Date Date Clinician morphine DA Active SV 2017-0 [facility] [place] Medications This patient has no known medications. Procedures This patient has no known procedures. Encounters Start End Encounter Admission Attending Care Care Encounter Source Date/Time Date/Time Type Type Clinicians Facility Department ID 2020-07-[address] [facility] [id number] 10:46:00 Rj Diez 923 [facility] 2020-09-12 2020-09-12 [facility] Margareth Wang [facility] [id number] 13:34:00 18:35:00 Encounter Jewel Mackay [id number] [place] [id number] [place] [id number] 2020-09-11 2020-09-11 Telephone Margareth Wang [facility] [id number] 00:00:00 00:00:00 Jewel Mackay [id number] [place] [id number] [phone] [facility] 2020-07-25 2020-08-02 [address] [facility] PSY [id number] . 10:07:00 13:01:00 Rj Diez [facility] Results Test Description Test Time Test Comments Results Result Comments Source CBC W/AUTO DIFF 2020-09-15 07:10:00 Test Item Value Reference Range Interpretation Comme nts WHITE BLOOD CELL (test code = WBC) 17.6 K/mm3 6.6-12.1 H RED BLOOD CELL (test code = RBC) 3.04 M/mm3 3.45-5.01 L HEMOGLOBIN (test code = HGB) 9.5 g/dL 10.7-13.9 L HEMATOCRIT (test code = HCT) 30.6 % 32.1-42.1 L MEAN CELL VOLUME (test code = MCV) 101 fL 84.1-94.8 H MEAN CELL HGB (test code = MCH) 31.3 pg 27-35 N MEAN CELL HGB CONCETRATION (test code = MCHC) 31.0 gm/dL 32.2-34. 1 L RED CELL DISTRIBUTION WIDTH (test code = RDW) 14.6 % 12.4-16. 5 N PLATELET COUNT (test code = PLT) 325 K/mm3 133-385 N MEAN PLATELET VOLUME (test code = MPV) 9.8 fl 9.1-12.7 N NEUTROPHIL % (test code = NT%) 75.4 % 56.5-79.4 N LYMPHOCYTE % (test code = LY%) 19.0 % 14.3-34.3 N MONOCYTE % (test code = MO%) 3.7 % 5.1-10.4 L EOSINOPHIL % (test code = EO%) 0.9 % 0.1-3.0 N BASOPHIL % (test code = BA%) 0.2 % 0.1-1.0 N NEUTROPHIL # (test code = NT#) 13.3 K/mm3 LYMPHOCYTE # (test code = LY#) 3.3 K/mm3 MONOCYTE # (test code = MO#) 0.7 K/mm3 EOSINOPHIL # (test code = EO#) 0.15 K/mm3 BASOPHIL # (test code = BA#) 0.0 K/mm3 RBC MORPHOLOGY REQUIRED (test code = RBCM) NORMAL NORMAL PLATELET MORPHOLOGY REQUIRED (test code = PLTMR) NORMAL IOANA L Comments to [employer]: TO BE COLLECTED BY LABRUBELLA [id number] 14:15:00 Test Item Value Reference Range Interpretation Comments RUBELLA SCREEN 73.8 IUnit/ml Results >10. 0IUnits/ml (test code = are considered positive RUBSC) inaccordance wi th the CLSI guidelines and based on the WH O International S tandard for Anti-Rubell a serum as anindicator of immune status and a br eakpoint to detect mostseropositiv e persons. Comments to [employer]: please use blood alreadyin the labB [id number] 07:26:00 Test Item Value Reference Range Interpretation Comments HEMOGLOBIN (test code = HGB) 10.9 g/dL 10.7-13.9 N HEMATOCRIT (test code = HCT) 34.6 % 32.1-42.1 N AG HEPATITIS B [id number] 04:56:00 Test Item Value Reference Range Interpretation Comments AG HEPATITIS B SURFACE (test code NONREACTIVE NONREACTIVE = HBSAG) IS CONSENT FORM SIGNED FOR HIV TESTING? YAB HEPATITIS C [id number] 04:56:00 Test Item Value Reference Range Interpretation Comments AB HEPATITIS C (test code = NONREACTIVE NONREACTIVE HCVAB) SIGNAL TO CUTOFF (test code = 0.10 <0.80 N CUTOFF) IS CONSENT FORM SIGNED FOR HIV TESTING? YAB [id number] 04:56:00 Test Item Value Reference Range Interpretation Comments AB TREPONEMA (test code = TREPAB) NONREACTIVE NONREACTIVE IS CONSENT FORM SIGNED FOR HIV TESTING? YAB HIV 1 04:56:00 Test Item Value Reference Range Interpretation Comments AB HIV 1 2 (test code = [id number]) NONREACTIVE IS CONSENT FORM SIGNED FOR HIV TESTING? YAG HEPATITIS B [id number] 04:56:00 Test Item Value Reference Range Interpretation Comments AG HEPATITIS B SURFACE (test code NONREACTIVE NONREACTIVE = HBSAG) IS CONSENT FORM SIGNED FOR HIV TESTING? YAB HEPATITIS C [id number] 04:56:00 Test Item Value Reference Range Interpretation Comments AB HEPATITIS C (test code = NONREACTIVE NONREACTIVE HCVAB) SIGNAL TO CUTOFF (test code = 0.10 <0.80 N CUTOFF) IS CONSENT FORM SIGNED FOR HIV TESTING? YAB [id number] 04:56:00 Test Item Value Reference Range Interpretation Comments AB TREPONEMA (test code = TREPAB) NONREACTIVE NONREACTIVE IS CONSENT FORM SIGNED FOR HIV TESTING? YAB HIV 1 04:56:00 Test Item Value Reference Range Interpretation Comments AB HIV 1 2 (test NONREACTIVE NONREACTIVE Done by Rosales Morrison code = [id number]) 4th Gen HIV Ag/Ab Combo Screen IS CONSENT FORM SIGNED FOR HIV TESTING? YAG HEPATITIS B [id number] 04:41:00 Test Item Value Reference Range Interpretation Comments AG HEPATITIS B SURFACE (test code NONREACTIVE NONREACTIVE = HBSAG) IS CONSENT FORM SIGNED FOR HIV TESTING? YAB HEPATITIS C [id number] 04:41:00 Test Item Value Reference Range Interpretation Comments AB HEPATITIS C (test code = HCVAB) NONREACTIVE SIGNAL TO CUTOFF (test code = CUTOFF) <0.80 IS CONSENT FORM SIGNED FOR HIV TESTING? YAB [id number] 04:41:00 Test Item Value Reference Range Interpretation Comments AB TREPONEMA (test code = TREPAB) NONREACTIVE NONREACTIVE IS CONSENT FORM SIGNED FOR HIV TESTING? YAB HIV 1 04:41:00 Test Item Value Reference Range Interpretation Comments AB HIV 1 2 (test code = [id number]) NONREACTIVE IS CONSENT FORM SIGNED FOR HIV TESTING? YCOMPREHENSIVE METABOLIC [id number] 02:39:00 Test Item Value Reference Range Interpretation Comments SODIUM (test code = NA) 135 mEq/L 135-145 N POTASSIUM (test code = K) 4.0 mEq/L 3.5-5.0 N CHLORIDE (test code = CL) 101 mEq/L 100-115 N CARBON DIOXIDE (test code = CO2) 26 mEq/L 22-31 N ANION GAP (test code = GAP) 12.50 10-20 N GLUCOSE (test code = GLU) 83 mg/dL 65-110 N BLOOD UREA NITROGEN (test code = 8 mg/dL 7-18 N BUN) GLOMERULAR FILTRATION RATE (test 94 ml/min >60 N code = GFR) CREATININE (test code = CREAT) 0.7 mg/dL 0.5-1.0 N TOTAL PROTEIN (test code = PROT) 6.2 gm/dL 6.3-8.2 L ALBUMIN (test code = ALB) 2.6 gm/dL 3.4-4.8 L CALCIUM (test code = CA) 8.3 mg/dL 8.4-10.2 L BILIRUBIN TOTAL (test code = 0.2 mg/dL 0.2-1.0 N BILT) SGOT/AST (test code = AST) 21 units/L 15-37 N SGPT/ALT (test code = ALT) 23 units/L 12-78 N ALKALINE PHOSPHATASE TOTAL (test 183 units/L 46-116 H code = ALKP) COVID 19 Asymptomatic IH [id number] 00:09:00 Test Item Value Reference Range Interpretation Comments COVID 19 NEGATIVE NEGATIVE This test has b een Asymptomatic IH AG authorize d only for the (test code = detection ofpro teins from COVNONPUIAG) SARS-CoV-2, not for any other viruses orpathogens. N egative results should be treated as presumptive andconfirmed wi th a molecular assay , if necessary for patientmanageme nt. Negative result s do not rule out COVID- 19 andshould not b e used as the sole basis for treatment orpat ient management deci sions, including infec tion controldecision s. Negative result s should be considered i n thecontext of a patient's recent exposure s, history and thepresence of clinical signs and symptoms consis tent withCOVID-19. T his test has not been FD A cleared or approved; th e test hasbeen authori zed by FDA under an Emerge ncy Use Authorization(E UA) for use by laborato lashell certified under the CLIA thatmeet the re quirements to perform mode rate, high or waivedcomple xity tests. This boy t is authorized for use at thePoint of Car e (POC), i.e., in patien t care settingsoperati ng under a CLIA Certificat e of Waiver, Certifi slim ofCompliance, o r Certificate of Accreditation. This test is only authori zed for the duration of thedeclaration that circumstances e xist justifying theauthorizatio n of emergency use o f in vitro diagnostic test sfor detection and/o r diagnosis of CO VID-19 under Adxsdsm70 4(b)(1) of the Act, 21 U.S .C. 360bbb-3(b)(1), unless theauthorizatio n is terminated or r evoked sooner. CBC W/AUTO [id number] 00:00:00 Test Item Value Reference Range Interpretation Comments WHITE BLOOD CELL (test 20.9 K/mm3 6.6-12.1 HH RESUL TS CALLED TO code = WBC) helene.READ BACK & CONFIRMED? yes. BY F.LAB.MR 3019. RED BLOOD CELL (test 3.61 M/mm3 3.45-5.01 N code = RBC) HEMOGLOBIN (test code = 11.4 g/dL 10.7-13.9 N HGB) HEMATOCRIT (test code = 34.7 % 32.1-42.1 N HCT) MEAN CELL VOLUME (test 96 fL 84.1-94.8 H code = MCV) MEAN CELL HGB (test code 31.6 pg 27-35 N = MCH) MEAN CELL HGB 32.9 gm/dL 32.2-34.1 N CONCETRATION (test code = MCHC) RED CELL DISTRIBUTION 14.5 % 12.4-16.5 N WIDTH (test code = RDW) PLATELET COUNT (test 321 K/mm3 133-385 N code = PLT) MEAN PLATELET VOLUME 9.8 fl 9.1-12.7 N (test code = MPV) NEUTROPHIL % (test code 80.9 % 56.5-79.4 H = NT%) LYMPHOCYTE % (test code 12.9 % 14.3-34.3 L = LY%) MONOCYTE % (test code = 4.4 % 5.1-10.4 L MO%) EOSINOPHIL % (test code 1.0 % 0.1-3.0 N = EO%) BASOPHIL % (test code = 0.2 % 0.1-1.0 N BA%) NEUTROPHIL # (test code 16.9 K/mm3 = NT#) LYMPHOCYTE # (test code 2.7 K/mm3 = LY#) MONOCYTE # (test code = 0.9 K/mm3 MO#) EOSINOPHIL # (test code 0.21 K/mm3 = EO#) BASOPHIL # (test code = 0.1 K/mm3 BA#) RBC MORPHOLOGY REQUIRED NORMAL NORMAL (test code = RBCM) PLATELET MORPHOLOGY NORMAL NORMAL REQUIRED (test code = PLTMR) Lactate [id number] 08:28:44 Test Item Value Reference Range Interpretation Comments LDH (test code = LDH) 166 U/L 120-246 Comprehensive Metabolic [id number] 08:16:47 Test Item Value Reference Range Interpretation Comments Sodium Level (test code = Sodium 139.0 mmol/L 136.0-145.0 Level) Potassium Level (test code = 4.20 mmol/L 3.50-5.10 Potassium Level) Chloride Level (test code = 105.0 mmol/L 98.0-107.0 Chloride Level) CO2 (test code = CO2) 26 mmol/L 20-31 Anion Gap (test code = Anion 8.2 mmol/L 5.0-15.0 Gap) BUN (test code = BUN) 5 mg/dL 9-23 L Creatinine Level (test code = 0.43 mg/dL 0.55-1.02 L Creatinine Level) BUN/Creat Ratio (test code = 11.6 ratio 10.0-20.0 BUN/Creat Ratio) Glucose Level (test code = 75 mg/dL 74-106 Glucose Level) Calcium Level (test code = 8.4 mg/dL 8.3-10.6 Calcium Level) Alk Phos (test code = Alk Phos) 121 U/L 46-116 H Bilirubin Total (test code = <0.2 mg/dL 0.2-1.1 Bilirubin Total) Albumin Level (test code = 3.5 g/dL 3.2-4.8 Albumin Level) Protein Total (test code = 5.7 g/dL 5.7-8.2 Protein Total) ALT (test code = ALT) 7 U/L 10-49 L AST (test code = AST) 13 U/L <=34 Globulin (test code = Globulin) 2.2 g/dL 2.3-3.5 L A/G Ratio (test code = A/G 1.6 g/dL 0.8-2.0 Ratio) Hemolysis (test code = 0 g/dL 1-2 Hemolysis) Icterus (test code = Icterus) 0 g/dL 1-2 Lipemia (test code = Lipemia) 0 g/dL 1-2 Comprehensive Metabolic [id number] 08:16:47 Test Item Value Reference Range Interpretation Comments Sodium Level (test 139.0 mmol/L 136.0-145.0 code = Sodium Level) Potassium Level 4.20 mmol/L 3.50-5.10 (test code = Potassium Level) Chloride Level (test 105.0 mmol/L 98.0-107.0 code = Chloride Level) CO2 (test code = 26 mmol/L 20-31 CO2) Anion Gap (test code 8.2 mmol/L 5.0-15.0 = Anion Gap) BUN (test code = 5 mg/dL 9-23 L BUN) Creatinine Level 0.43 mg/dL 0.55-1.02 L (test code = Creatinine Level) BUN/Creat Ratio 11.6 ratio 10.0-20.0 (test code = BUN/Creat Ratio) Glucose Level (test 75 mg/dL 74-106 code = Glucose Level) Calcium Level (test 8.4 mg/dL 8.3-10.6 code = Calcium Level) Alk Phos (test code 121 U/L 46-116 H = Alk Phos) Bilirubin Total <0.2 mg/dL 0.2-1.1 (test code = Bilirubin Total) Albumin Level (test 3.5 g/dL 3.2-4.8 code = Albumin Level) Protein Total (test 5.7 g/dL 5.7-8.2 code = Protein Total) ALT (test code = 7 U/L 10-49 L ALT) AST (test code = 13 U/L <=34 AST) Globulin (test code 2.2 g/dL 2.3-3.5 L = Globulin) A/G Ratio (test code 1.6 g/dL 0.8-2.0 = A/G Ratio) eGFR AA (test code = >60 >=60 eGFR (e stimated eGFR AA) mL/min/1.73 m2 Glomerular Filtration Rate ) is an estimated va lue, calculated from the patient's serum creatinine usin g the MDRD equation. It is NOT the patient 's actual GFR. The eGFR provides a more clinically usef ul measure of kidn ey disease than se rum creatinine alone.This calculation shannon es sex and race in to account, if the information is provided. If th e race is not provided, and t he patient is -Amy n, multiply by 1.2 12. If sex is not provided, and t he patient is fema le, multiply by 0.7 42. Results for pat ients <18 years of ag e have not been validated by [facility] MDRD study and should be interpreted wit h caution. eGFR R esult Interpretation: eGFR > or = 60 is in the Normal RangeeGF R < 60 may mean kid delmi diseaseeGFR < 1 5 may mean kidney failure Rang es recommended by the National Kidney Foundation, http://nkdep.ni h.gov eGFR Non-AA (test >60.00 >=60.00 eGFR (nenita mated code = eGFR Non-AA) mL/min/1.73 m2 Glomer ular Filtration Rate ) is an estimated va lue, calculated from the patient's serum creatinine usin g the MDRD equation. It is NOT the patient 's actual GFR. The eGFR provides a more clinically usef ul measure of kidn ey disease than se rum creatinine alone.This calculation shannon es sex and race in to account, if the information is provided. If th e race is not provided, and t he patient is -Amy n, multiply by 1.2 12. If sex is not provided, and t he patient is fema le, multiply by 0.7 42. Results for pat ients <18 years of ag e have not been validated by [facility] MDRD study and should be interpreted wit h caution. eGFR R esult Interpretation: eGFR > or = 60 is in the Normal RangeeGF R < 60 may mean kid delmi diseaseeGFR < 1 5 may mean kidney failure Rang es recommended by the National Kidney Foundation, http://nkdep.ni h.gov Hemolysis (test code 0 g/dL 1-2 = Hemolysis) Icterus (test code = 0 g/dL 1-2 Icterus) Lipemia (test code = 0 g/dL 1-2 Lipemia) Comprehensive Metabolic [id number] 08:16:47 Test Item Value Reference Range Interpretation Comments Sodium Level (test 139.0 mmol/L 136.0-145.0 code = Sodium Level) Potassium Level 4.20 mmol/L 3.50-5.10 (test code = Potassium Level) Chloride Level (test 105.0 mmol/L 98.0-107.0 code = Chloride Level) CO2 (test code = 26 mmol/L 20-31 CO2) Anion Gap (test code 8.2 mmol/L 5.0-15.0 = Anion Gap) BUN (test code = 5 mg/dL 9-23 L BUN) Creatinine Level 0.43 mg/dL 0.55-1.02 L (test code = Creatinine Level) BUN/Creat Ratio 11.6 ratio 10.0-20.0 (test code = BUN/Creat Ratio) Glucose Level (test 75 mg/dL 74-106 code = Glucose Level) Calcium Level (test 8.4 mg/dL 8.3-10.6 code = Calcium Level) Alk Phos (test code 121 U/L 46-116 H = Alk Phos) Bilirubin Total <0.2 mg/dL 0.2-1.1 (test code = Bilirubin Total) Albumin Level (test 3.5 g/dL 3.2-4.8 code = Albumin Level) Protein Total (test 5.7 g/dL 5.7-8.2 code = Protein Total) ALT (test code = 7 U/L 10-49 L ALT) AST (test code = 13 U/L <=34 AST) Globulin (test code 2.2 g/dL 2.3-3.5 L = Globulin) A/G Ratio (test code 1.6 g/dL 0.8-2.0 = A/G Ratio) eGFR AA (test code = >60 >=60 eGFR (e stimated eGFR AA) mL/min/1.73 m2 Glomerular Filtration Rate ) is an estimated va lue, calculated from the patient's serum creatinine usin g the MDRD equation. It is NOT the patient 's actual GFR. The eGFR provides a more clinically usef ul measure of kidn ey disease than se rum creatinine alone.This calculation shannon es sex and race in to account, if the information is provided. If th e race is not provided, and t he patient is -Amy n, multiply by 1.2 12. If sex is not provided, and t he patient is fema le, multiply by 0.7 42. Results for pat ients <18 years of ag e have not been validated by [facility] MDRD study and should be interpreted wit h caution. eGFR R esult Interpretation: eGFR > or = 60 is in the Normal RangeeGF R < 60 may mean kid delmi diseaseeGFR < 1 5 may mean kidney failure Rang es recommended by the National Kidney Foundation, http://nkdep.ni h.gov eGFR Non-AA (test >60.00 >=60.00 eGFR (nenita mated code = eGFR Non-AA) mL/min/1.73 m2 Glomer ular Filtration Rate ) is an estimated va lue, calculated from the patient's serum creatinine usin g the MDRD equation. It is NOT the patient 's actual GFR. The eGFR provides a more clinically usef ul measure of kidn ey disease than se rum creatinine alone.This calculation shannon es sex and race in to account, if the information is provided. If th e race is not provided, and t he patient is -Amy n, multiply by 1.2 12. If sex is not provided, and t he patient is fema le, multiply by 0.7 42. Results for pat ients <18 years of ag e have not been validated by [facility] MDRD study and should be interpreted wit h caution. eGFR R esult Interpretation: eGFR > or = 60 is in the Normal RangeeGF R < 60 may mean kid delmi diseaseeGFR < 1 5 may mean kidney failure Rang es recommended by the National Kidney Foundation, http://nkdep.ni h.gov Hemolysis (test code 0 g/dL 1-2 = Hemolysis) Icterus (test code = 0 g/dL 1-2 Icterus) Lipemia (test code = 0 g/dL 1-2 Lipemia) Complete Blood Count without [id number] 08:09:40 Test Item Value Reference Range Interpretation Comments WBC (test code = WBC) 11.9 x10 4.4-10.5 H RBC (test code = RBC) 2.98 x10 3.75-5.20 L Hgb (test code = Hgb) 9.3 g/dL 12.2-14.8 L Hct (test code = Hct) 29.6 % 36.5-44.4 L MCV (test code = MCV) 99.30 fL 80.00-100.00 MCH (test code = MCH) 31.2 pg 27.0-32.5 MCHC (test code = MCHC) 31.40 g/dL 32.00-37.50 L RDW CV (test code = RDW CV) 13.3 % 11.5-14.5 Platelets (test code = Platelets) 382.0 x10 140.0-440.0 MPV (test code = MPV) 9.9 fL N nRBC (test code = nRBC) 0 N NRBC Abs (test code = NRBC Abs) 0.00 x10 N Creatinine [id number] 15:39:13 Test Item Value Reference Range Interpretation Comments U Creatinine (test 89.1 mg/dL N Reference ranges have code = U Creatinine) not bee n established for this assay. Protein [id number] 15:39:13 Test Item Value Reference Range Interpretation Comments U Protein (test code = U Protein) 10.4 mg/dL 1.0-14.0 Complete Blood Count without [id number] 06:39:12 Test Item Value Reference Range Interpretation Comments WBC (test code = WBC) 11.9 x10 4.4-10.5 H RBC (test code = RBC) 3.06 x10 3.75-5.20 L Hgb (test code = Hgb) 9.5 g/dL 12.2-14.8 L Hct (test code = Hct) 30.4 % 36.5-44.4 L MCV (test code = MCV) 99.30 fL 80.00-100.00 MCH (test code = MCH) 31.0 pg 27.0-32.5 MCHC (test code = MCHC) 31.30 g/dL 32.00-37.50 L RDW CV (test code = RDW CV) 13.3 % 11.5-14.5 Platelets (test code = Platelets) 365.0 x10 140.0-440.0 MPV (test code = MPV) 9.8 fL N nRBC (test code = nRBC) 0 N NRBC Abs (test code = NRBC Abs) 0.00 x10 N US OB Greater Than 14 [id number] 19:21:42Patient: MARTINE LENTZ Date/Time07/26/2020 17:29 CDTReason for Examper md order;Other (please specify)ReportOB ULTRASOUND LIMITEDLocation: [id number] HISTORY: Confirm pregnancyLMP gest.age by LMP 32 weeks 1 day YESSY by LMPNov2019Gestational Age by ultrasound today 32 weeks 3 days with YESSY September 17, 2020TE CHNIQUE:Realtime grayscale, color and spectral or M-Mode Doppler images were obtained. Patient terminated the exam early. MEASUREMENTS;BPD 8.39 cm equals 33 weeks 1 dayHC 29.89 cm equals 33 weeks 1 dayFemur Length 5.84 cm equals 30 weeks 4 daysAbd. Circ. 27.55 cm equals 31 weeks 5 daysFETAL RATIOS:Cephalic Index 0.85 normal range 0.70 to 0.86FL/ AC 0.21 normal range 0.20 to 0.24HC/AC 1.08 normal range 1.06 to 1.25FL/ BPD 0.7 normal range 0.71 to 0.87AFI 27 cm normalEstimated Weight 1799 g equal to 3 lbs. 15 oz.Placenta posterior grade 1 in appearance without abruption or previa.Cervix not seen wellMaternal adnexa not seen due to the enlarged gravid uterusFetal presentation VertexFETAL ANATOMY:There is suboptimal visualization of the intracranial structures, face. gender not examined. Four-chamber heart view is suboptimal. The patient terminated the exam early.IMPRESSION:Wetzel live IUP of 32 weeks 3 days. No abnormalities demonstrated. Patient terminated the exam early. Final Dictated by: MD De La Rosa Maria VDictated DT/TM: 07/26/2020 7:17 pmSigned by: MD De La Rosa Maria VSigned (Electronic Signature): 07/26/2020 7:21 pmBeta HCG Quantitative 2020-07-26 14:42:56 Test Item Value Reference Range Interpretation Comments HCG, Beta Quantitative 04670.1 mIU/mL N 17- 54 (test code = HCG, Beta (Non- )?41 Quantitative) (Post-menopaus al) RPR [id number] 12:50:28 Test Item Value Reference Range Interpretation Comments RPR Qual (test code = RPR Qual) Non-Reactive Non-Reactive Reactive Control (test code = Reactive Reactive Control) Weak Reactive Control (test Weak Reactive code = Weak Reactive Control) Non-Reactive Control (test code Non-Reactive = Non-Reactive Control) Lot # (test code = Lot #) [id number] N Expiration Dt (test code = 08-01-2021 N Expiration Dt) Lipid [id number] 07:58:23 Test Item Value Reference Range Interpretation Comments Cholesterol Total 187 mg/dL N Low-risk l evel (test code = (desirable) - < 200 Cholesterol Total) mg/dlMode rate-risk level (borderli ne) - 200-239 mg/dlHigh-risk level - ?240 mg/dl Triglycerides (test 223 mg/dL N Normal - <150 code = Triglycerides) mg/dlB orderline high - 150-199 mg/dl High - 200-499 mg/dl Very high - ?500 mg/ dl HDL (test code = HDL) 50.50 mg/dL N Low-ri sk level (desirable) - ? 60 mg/dlHigh-risk level (undesirable) - <40 mg/dl LDL (test code = LDL) 92 mg/dL N The eq uation being used in this calculation is LDL = (Chol - HDL) - (Trig / 5) VLDL (test code = 45 mg/dL 5-40 H The equati on being VLDL) used in this calculation is VLDL = Trig / 5 Chol/HDL (test code = 3.7 ratio <=5.0 Chol/HDL) LDL/HDL Ratio (test 4 N The equa tion being code = LDL/HDL Ratio) used i n this calculation is LDL/HDL Ratio=L DL Calc/HDL Chol Thyroid Stimulating [id number] 07:58:23 Test Item Value Reference Range Interpretation Comments TSH (test code = TSH) 1.312 mcIU/mL 0.550-4.780 Hemoglobin [id number] 07:54:16 Test Item Value Reference Range Interpretation Comments Hemoglobin A1c (test code 5.1 % 4.0-5.8 Di abetic >=6.5 = Hemoglobin A1c) %Prediabet es 5.7-6.4 %Normal <5.7 % RPR, [id number] 14:45:00 Test Item Value Reference Range Interpretation Comments RPR (test code = RPR) Non-Reactive Non-Reactive N Thyroid Stimulating Hormone (TSH)2017-12-30 07:29:00 Test Item Value Reference Range Interpretation Comments TSH (test code = TSH) 2.42 mIU/mL 0.270-4.200 N BHCG, Serum, [id number] 07:29:00 Test Item Value Reference Range Interpretation Comments B hCG, Quant (test <1 mIU/mL Weeks of Gestation code = BHCGQT) Ranges (mIU/m L)3 weeks 5. 40 - 72.04 weeks 10.2 - 7085 w eeks 217 - 04557 weeks 152 - 731605 weeks 4059 - 153 7678 weeks 64209 - 2848599 weeks 591 09 - 82691430 weeks 04821 - 1704 0912 weeks 78676 - [id number] week s 36842 - 93 58132 weeks 37124 - 6449651 weeks 8904 - 5533 217 weeks 82 40 - 9449434 weeks 9649 - 07967 Lipid [id number] 07:19:00 Test Item Value Reference Range Interpretation Comments Cholesterol (test 132 mg/dL 0-200 N code = CHOL) Triglycerides (test 122 mg/dL 9-200 N code = TRIG) HDL (test code = 21 mg/dL 50-60 L HDL) Chol/HDL (test code 6.3 Ratio 0.0-4.4 H = CHOLPHDL) LDL, Calculated 87 0-130 N (NOTE)RISK O F HEART (test code = LDLC) DISEASEPu blished by [place] Heart AssociationAnal yte Optim al Boderline Increased RiskC HOL <200 200-239 >240TRI G <150 150-199 >200HDL Male: >60 <40HDL Female: >60 <50 LDL < 100 130-15 9 >160 LDL NEAR OPTIMAL IS 100- 129 VLDL (test code = 24 mg/dL 5-40 N VLDL) LDL/HDL (test code = 4 LDLPHDL) [id number] 04:24:00 Test Item Value Reference Range Interpretation [...] code = THC) POSITIVE Negative A Urinalysis [id number] 03:47:00 Test Item Value Reference Range Interpretation Comments Color (test code = [place] Yellow,Straw,Pl A The va lue [place] COLOR) yellow originally released by [employer] on 12/30/2017 03:4 2 waschanged to P ink by [employer] on 12/30/2017 03:4 7 Clarity (test code = Sl Cloudy Clear A The tomi ue Clear CLAR) originally released by [employer] on 12/30/2017 03:4 2 waschanged to S l Cloudy by BRIANA PARHAM on 12/30/2017 03:47 Specific [place] 1.006 1.001-1.035 N (test code = SPGR) [...] code Few /HPF = BACT) Comprehensive Metabolic [id number] 01:00:00 Test Item Value Reference Range Interpretation [...] is not provided , and the patient isBrenda-Kenyon can, multiply by 1.2 12. If sex is not prov ided, and thepatient is female, multipl y by 0.742. Results for patients <18 ye ars ofage have not been validated by th e MDRD study and shomarina d be interpretedwith caution.eGFR Re sult Interpretation: eGFR > or = 60 is in t he Normal RangeeGF R < 60 may mean kidney diseaseeGFR < 1 5 may mean kidney failureRange s recommended by the National Kidney Foundation,http ://nkd ep.nih.gov Alcohol/Ethanol, [id number] 01:00:00 Test Item Value Reference Range Interpretation Comments Alcohol, Ethyl <0.01 g/dL 0.00-0.01 N Intoxicated 0.080 (test code = ETOH) g/dL or m ore CBC with [id number] 00:45:00 Test Item Value Reference Range Interpretation [...] code = ALYMPH) 3.8 K/cumm 0.5-4.6 N Faulk Abs (test code = AMONO) 0.5 K/cumm 0.0-1.2 N Eos Abs (test code = AEOS) 1.24 K/cumm 0.00-0.74 H Baso Abs (test code = ABASO) 0.1 K/cumm 0.00-0.21 N
[2021-03-16 14:45] LABS: Urine Blood 1+ (Negative); Urine Glucose Negative (Negative); Urine Protein Negative (Negative); Urine Specific Gravity 1.025 (1.005-1.030)
[2021-03-16 15:26] LABS: Urine Specific Gravity/Preg 1.025 (1.005-1.030)
--- NOTE | 2021-03-16 15:28 | RAD REPORT ---
EXAM DESCRIPTION: US - Abdomen Exam Limited - 03/16/2021 3:06 pm CLINICAL HISTORY: Abdominal pain. COMPARISON: None. FINDINGS: The gallbladder is mildly contracted. The gallbladder wall is not thickened. A gallstone is not seen. The biliary tree is normal caliber. IMPRESSION: Mildly contracted gallbladder. A gallstone is not seen
[2021-03-16] MEDS ORDERED: LORazepam 2 MG/ML VIAL ONE (16:55)
[2021-03-16 16:57] LABS: Absolute Lymphocytes (CBC) 2.6 K/uL (0.7-4.9); Basophils % 1.2 % (0-1.3); Hematocrit 37.8 % (36.0-45.0); Lymphocytes % 21.3 % (15.3-44.8); MPV 7.5 fL (7.6-11.3); RBC Red Blood Cell Count 4.29 M/uL (3.86-4.86)
[2021-03-16] MEDS ORDERED: KETOROLAC 30 MG/ML INJ ONE (17:02)
[2021-03-16 17:20] LABS: ALT/SGPT 34 U/L (12-78); AST/SGOT 17 U/L (15-37); Albumin 3.8 g/dL (3.4-5.0); Alkaline Phosphatase 170 U/L (45-117); BUN Blood Urea Nitrogen 13 mg/dL (7-18); Bicarbonate 28 mmol/L (21-32); Bilirubin Direct < 0.1 mg/dL (0-0.2); Bilirubin Total 0.3 mg/dL (0.2-1.0); Glucose Level 89 mg/dL (74-106); Lipase 198 U/L (73-393); Potassium 3.8 mmol/L (3.5-5.1); Protein, Total 7.9 g/dL (6.4-8.2); Sodium Level 138 mmol/L (136-145)
[2021-03-16] MEDS ORDERED: MORPHINE 4 MG/ML SYR ONE (17:45)
--- NOTE | 2021-03-16 18:03 | RAD REPORT ---
EXAM DESCRIPTION: CT - Abdomen Pelvis W Contrast - 03/16/2021 5:14 pm CLINICAL HISTORY: Abdominal pain COMPARISON: none. TECHNIQUE: Computed axial tomography of the abdomen pelvis was obtained. 100 cc Isovue-300 was admin istered intravenously. Oral contrast was not requested which limits evaluation of bowel. All CT scans are performed using dose optimization technique as appropriate and may include automated exposure control or mA/KV adjustment according to patient size. FINDINGS: The thoracoabdominal aorta has an AP diameter 3.4 centimeters Mild bilateral infrahilar lymph nodes. The liver, pancreas, adrenals and left kidney are unremarkable. 16 millimeter low to intermediate density lesion spleen. Moderate dilatation of a right extrarenal pelvis. 4 millimeter nonobstructing right renal calculus. There is no evidence of diverticulitis. Normal appendix. Small umbilical hernia. The wall of distal stomach appears thickened IMPRESSION: Thickening of the wall of the distal stomach probably inflammation. Mild bilateral hilar lymphadenopathy Moderate dilatation of a right extrarenal pelvis. This could be physiologic for the patient or be sec ondary to a UPJ stricture. 16 millimeter low to intermediate density splenic lesion is nonspecific. Followup ultrasound in 3 mon ths recommended to assess stability. 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
[2021-03-16] MEDS ORDERED: MAGNES/ALUMIN/SIMET 30ML UCUP ONE (18:51)
[2021-03-16] MEDS ORDERED: LIDOCAINE VISCOUS 2% SOLN 15 ML UDC ONE (18:51)
--- NOTE | 2021-03-16 19:45 | ER ---
Nurse's Notes [facility] Name: Miriam Fried Age: 41 yrs Sex: Female : 1980 Arrival Date: 03/16/2021 Time: 13:43 Bed 4 Private MD: Diagnosis: Unspecified abdominal pain;Urinary tract infection, site not specified Presentation: 03/16 14:00 Chief complaint: Patient states: "I feel like I have an ulcer, I had a baby in September aa5 and I haven't had a period since, and I've taken 3 tests and they've all been negative, and my stomach has been hurting. My mom in November and I've been really stressed about it" Patient states that she tried taking Pepto Bismol but it isn't helping. Reports that her abdominal pain started yesterday. Coronavirus screen: Client denies travel out of the [place] in the last 14 days. At this time, the client does not indicate any symptoms associated with coronavirus-19. Ebola Screen: Patient denies travel to an Ebola-affected area in the 21 days before illness onset. Initial Sepsis Screen: Does the patient meet any 2 criteria? HR > 90 bpm. No. Patient's initial sepsis screen is negative. Does the patient have a suspected source of infection? No. Patient's initial sepsis screen is negative. Risk Assessment: Do you want to hurt yourself or someone else? Patient reports no desire to harm self or others. Onset of symptoms was March 2021. 14:00 Method Of Arrival: Ambulatory aa5 14:00 Acuity: REGINA 3 aa5 Triage Assessment: 14:04 General: Appears in no apparent distress. uncomfortable, Behavior is cooperative, aa5 anxious. Pain: Complains of pain in epigastric area Pain does not radiate. Pain currently is 9 out of 10 on a pain scale. Quality of pain is described as pressure, Pain began 1 day ago. Neuro: Level of Consciousness is awake, alert, obeys commands, Oriented to person, place, time, situation. Cardiovascular: Patient's skin is warm and dry. Respiratory: Airway is patent Respiratory effort is even, unlabored, Respiratory pattern is regular, symmetrical. GI: Reports upper abdominal pain, nausea, Patient currently denies diarrhea, vomiting. Derm: Skin is pink, warm \\T\\ dry. normal. 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 Flu vaccine is not up to date. - Social history:: Smoking status: Patient reports the use of cigarette tobacco products, smokes one-half pack cigarettes per day. Screenin:45 Abuse screen: Denies threats or abuse. Denies injuries from another. Nutritional bp screening: No deficits noted. Tuberculosis screening: No symptoms or risk factors identified. Fall Risk None identified. Assessment: 15:45 General: SEE TRIAGE NOTE. bp 16:55 Reassessment: No changes from previously documented assessment. Patient and/or family bp updated on plan of care and expected duration. Pain level reassessed. 17:32 Reassessment: PT RETURNED FROM RAD. RESULTS PENDING. bp 18:38 Reassessment: Patient appears in no apparent distress at this time. No changes from bp previously documented assessment. Patient states symptoms have improved. 19:15 Reassessment: Patient appears in no apparent distress at this time. Patient noted to be lp1 at 83% on RA, patient aroused and talking, O2 at 92%; NC applied via 2L O2; Reports abdominal pain relief with medications administered. Vital Signs: 14:00 BP 136 / 78; Pulse 103; Resp 20; Temp 98.3; Pulse Ox 95% on R/A; Weight 90.72 kg (R); aa5 Height 5 ft. 4 in. (162.56 cm) (R); Pain 9/10; 15:35 BP 142 / 77; Pulse 95; Resp 18; Pulse Ox 95% on R/A; aj1 16:55 BP 123 / 69; Pulse 88; Resp 16; Pulse Ox 98% ; bp 17:32 BP 138 / 82; Pulse 84; Resp 16; Pulse Ox 93% ; bp 18:39 BP 135 / 86; Pulse 85; Resp 16; Pulse Ox 98% ; bp 14:00 Body Mass Index 34.33 (90.72 kg, 162.56 cm) aa5 ED Course: 13:43 Patient arrived in ED. as 14:02 Triage completed. aa5 14:04 Arm band placed on Patient placed in waiting room, Patient notified of wait time. aa5 15:05 US Abdomen Limited In Process Unspecified. EDMS 15:45 Patient has correct armband on for positive identification. Bed in low position. Call bp light in reach. Side rails up X2. 15:48 Troy Rodriguez PA is PHCP. jmm 15:48 Myles Jalloh MD is Attending Physician. jmm 15:59 Luis Alberto Leung, RN is Primary Nurse. bp 16:50 Inserted saline lock: 20 gauge in right forearm, using aseptic technique. Blood bp collected. 17:14 CT Abd/Pelvis - IV Contrast Only In Process Unspecified. EDMS 19:18 No provider procedures requiring assistance completed. lp1 19:44 Porter Kaufman MD is Referral Physician. [facility] Administered Medications: 16:50 Drug: Ativan (LORazepam) 1 mg Route: IVP; Site: right forearm; bp 17:31 Follow up: Response: Anxiety decreased bp 16:50 Drug: Ketorolac 30 mg Route: IVP; Site: right forearm; bp 17:31 Follow up: Response: Pain is decreased bp 17:30 Drug: morphine 4 mg Route: IVP; Site: right antecubital; bp 17:31 Follow up: Response: No adverse reaction; Pain is decreased bp 18:30 Drug: GI Cocktail without - (Maalox Suspension 30 ml, Lidocaine Liquid 2 % 15 bp ml) Route: PO; Outcome: 19:45 Discharge ordered by MD. [facility] 19:59 Patient left the ED. lp1 Signatures: Dispatcher [employer] EDMS Kalpana Salinas RN RN aj1 Troy Rodriguez PA PA jmm Martinez, Amelia as Calderon, Audri, MARY RN aa5 Barbara Luther, RN RN lp1 Luis Alberto Leung, MARY RN bp Corrections: (The following items were deleted from the chart) 16:56 16:55 Reassessment: No changes from previously documented assessment. Patient and/or bp family updated on plan of care and expected duration. Pain level reassessed. TRANSFER INITIATED bp 19:18 19:15 Reassessment: Patient appears in no apparent distress at this time. Patient noted lp1 to be at 83% on RA, patient aroused and talking, O2 at 92%; NC applied via 2L O2 lp1
--- NOTE | 2021-03-16 19:45 | EDPHYS ---
Physician Documentation [facility] Name: Miriam Fried Age: 41 yrs Sex: Female : 1980 Arrival Date: 03/16/2021 Time: 13:43 Bed 4 Private MD: CLARA Physician Myles Jalloh HPI: 03/16 14:43 This 41 yrs old Female presents to ER via Ambulatory with complaints of jmm Epigastric Pain, Nausea. 14:43 The patient presents with abdominal pain. Onset: The symptoms/episode began/occurred jmm gradually. The symptoms do not radiate. Associated signs and symptoms: Pertinent positives: nausea. The symptoms are described as achy. Modifying factors: The symptoms are alleviated by nothing, the symptoms are aggravated by nothing. 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 Flu vaccine is not up to date. - Social history:: Smoking status: Patient reports the use of cigarette tobacco products, smokes one-half pack cigarettes per day. ROS: 19:42 Constitutional: Negative for fever, chills, and weight loss, Cardiovascular: Negative jmm for chest pain, palpitations, and edema, Respiratory: Negative for shortness of breath, cough, wheezing, and pleuritic chest pain. 19:42 Abdomen/GI: Positive for abdominal pain. 19:42 All other systems are negative. Exam: 19:42 Constitutional: This is a well developed, well nourished patient who is awake, alert, jmm and in no acute distress. Head/Face: atraumatic. Eyes: EOMI, no conjunctival erythema appreciated ENT: Moist Mucus Membranes Neck: Trachea midline, Supple Chest/axilla: Normal chest wall appearance and motion. Cardiovascular: Regular rate and rhythm. No edema appreciated Respiratory: Normal respirations, no respiratory distress appreciated Abdomen/GI: Non distended, soft Back: Normal ROM Skin: General appearance color normal MS/ Extremity: Moves all extremities, no obvious deformities appreciated, no edema noted to the lower extremities Neuro: Awake and alert, normal gait Psych: Behavior is normal, Mood is normal, Patient is cooperative and pleasant Vital Signs: 14:00 BP 136 / 78; Pulse 103; Resp 20; Temp 98.3; Pulse Ox 95% on R/A; Weight 90.72 kg (R); aa5 Height 5 ft. 4 in. (162.56 cm) (R); Pain 9/10; 15:35 BP 142 / 77; Pulse 95; Resp 18; Pulse Ox 95% on R/A; aj1 16:55 BP 123 / 69; Pulse 88; Resp 16; Pulse Ox 98% ; bp 17:32 BP 138 / 82; Pulse 84; Resp 16; Pulse Ox 93% ; bp 18:39 BP 135 / 86; Pulse 85; Resp 16; Pulse Ox 98% ; bp 19:20 BP 141 / 95; Pulse 87; Resp 18; Pulse Ox 95% on 2 lpm NC; lp1 19:45 Pulse Ox 95% on R/A; lp1 14:00 Body Mass Index 34.33 (90.72 kg, 162.56 cm) aa5 MDM: 15:49 Patient medically screened. deisy 19:42 Data reviewed: vital signs, nurses notes. Counseling: I had a detailed discussion with yonathan the patient and/or guardian regarding: the historical points, exam findings, and any diagnostic results supporting the discharge/admit diagnosis, radiology results, the need for outpatient follow up, to return to the emergency department if symptoms worsen or persist or if there are any questions or concerns that arise at home. ED course: Pain relieved in the ED. No signs of sepsis. Patient is advised to follow up with pcp and otherwise given strict return precautions. patient understood and agrees with the planof care. . 03/16 14:45 Order name: Urine Dipstick-Ancillary; Complete Time: 15:49 EDCT 03/16 14:48 Order name: Urine --Ancillary (enter results); Complete Time: 15:49 em1 03/16 16:14 Order name: Basic Metabolic Panel; Complete Time: 17:21 [facility] 03/16 16:14 Order name: CBC with Diff; Complete Time: 17:00 [facility] 03/16 16:14 Order name: Hepatic Function; Complete Time: 17:21 [facility] 03/16 16:14 Order name: Lipase; Complete Time: 17:21 [facility] 03/16 14:42 Order name: US Abdomen Limited; Complete Time: 15:49 aa5 03/16 16:14 Order name: IV Saline Lock; Complete Time: 16:54 [facility] 03/16 16:14 Order name: Labs collected and sent; Complete Time: 16:54 [facility] 03/16 16:16 Order name: CT Abd/Pelvis - IV Contrast Only; Complete Time: 18:08 [facility] Administered Medications: 16:50 Drug: Ativan (LORazepam) 1 mg Route: IVP; Site: right forearm; bp 17:31 Follow up: Response: Anxiety decreased bp 16:50 Drug: Ketorolac 30 mg Route: IVP; Site: right forearm; bp 17:31 Follow up: Response: Pain is decreased bp 17:30 Drug: morphine 4 mg Route: IVP; Site: right antecubital; bp 17:31 Follow up: Response: No adverse reaction; Pain is decreased bp 18:30 Drug: GI Cocktail without - (Maalox Suspension 30 ml, Lidocaine Liquid 2 % 15 bp ml) Route: PO; 19:15 Follow up: Response: Marked relief of symptoms lp1 Disposition: 03/17 07:10 Co-signature as Attending Physician, Myles Jalloh MD I agree with the assessment and deisy plan of care. Disposition: 03/16/21 19:45 Discharged to Home. Impression: Unspecified abdominal pain, Urinary tract infection, site not specified. - Condition is Stable. - Discharge Instructions: Abdominal Pain, Adult, Urinary Tract Infection, Adult. - Prescriptions for Ativan 1 mg Oral Tablet - take 1 tablet by ORAL route every 8 hours As needed; 6 tablet. Carafate 1 gram Oral Tablet - take 1 tablet by ORAL route 4 times per day take on an empty stomach, beginning on waking and last dose at bedtime; 100 tablet. Bactrim DS 800- 160 mg Oral Tablet - take 1 tablet by ORAL route every 12 hours for 7 days; 14 tablet. - Medication Reconciliation Form, Thank You Letter, Antibiotic Education, Prescription Opioid Use form. - Follow up: Porter Kaufman MD; When: 2 - 3 days; Reason: Recheck today's complaints, Continuance of care, Re-evaluation by your physician. Signatures: Dispatcher [employer] EDMyles Muhammad MD MD cha Mickail, Joel, PA PA jmm Calderon, Audri, RN RN aa5 Barbara Luther RN RN lp1 Luis Alberto Leung, RN RN bp Corrections: (The following items were deleted from the chart) 03/16 19:59 19:45 03/16/2021 19:45 Discharged to Home. Impression: Unspecified abdominal pain; lp1 Urinary tract infection, site not specified. Condition is Stable. Forms are Medication Reconciliation Form, Thank You Letter, Antibiotic Education, Prescription Opioid Use. Follow up: Porter Kaufman; When: 2 - 3 days; Reason: Recheck today's complaints, Continuance of care, Re-evaluation by your physician. yonathan
[2021-03-16 20:21] VITALS: TEMP 98.3
[2021-03-16 20:28] VITALS: BP 135/86; O2SAT 98
== END 2021-03-16 19:59 | disposition home or self-care (01) ==
LOC: ER 13:40
DX: N39.0 Urinary tract infection, site not specified (principal); F41.8 Other specified anxiety disorders; F17.210 Nicotine dependence, cigarettes, uncomplicated; Z88.5 Allergy status to narcotic agent
CPT/HCPCS: 85025; 80048; 36415; 81025; 82565; 80076; 81003; 83690; 74177; 76705; 99284; Q9967

== ENCOUNTER 2021-09-16 10:02 | Emergency (ER) | payer OTHER ==
--- OUTSIDE RECORDS SUMMARY | 2021-09-16 10:09 | XMS REPORT | Continuity of Care Document ---
:1980 Author Organization [facility] t Address [address] [place] [address] Care Team Providers Name Role Phone UNKNOWN, REFFERING Primary Care Physician Unavailable Sherman Collazo Attending Clinician Unavailable Rj Diez Attending Clinician Unavailable Daniel Diez Attending Clinician Unavailable ONDINA REID Attending Clinician Unavailable Ondina Reid MD Attending Clinician Macie PAGAN Attending Clinician Unavailable Ultrasound Attending Clinician Unavailable Robb Campos MD Attending Clinician Doctor Unassigned, Name Attending Clinician Unavailable Fellow, [facility] Attending Clinician Unavailable Sneha Savage MD Attending Clinician Sarah Corral MD Attending Clinician Rigo BROUSSARD Attending Clinician Jose Rafael Emanuel Attending Clinician JOSE RAFAEL CHAMBERS Attending Clinician Unavailable [facility] Attending Clinician Unavailable Dipika Mark MD Attending Clinician Jenn Sanz DO Attending Clinician NORMA SIMONS M.D. Attending Clinician Unavailable ONDINA REID Admitting Clinician Unavailable Zay Admitting Clinician Unavailable Daniel Diez Admitting Clinician Unavailable Ondina Reid MD Admitting Clinician NORMA SIMONS M.D., M Admitting Clinician Unavailable Payers Payer Name Policy Type Policy Number Effective Date Expiration Date Rosales may [facility] [id number] 2020 CHOICE MEDICAID 00:00:00 MEDICAID [facility] [id number] 2020 00:00:00 Problems Condition Condition Condition Status Onset Resolution Last Treating Co mments Source Name Details Category Date Date Treatment Clinician Date 39 weeks 39 weeks Disease Active 2020- Unive rs gestation gestation 1-11 ity of of of 00:00: [place] 00 [facility] Branch QT QT Disease Active 2019- Univers prolongati prolongati 1-11 it y of on on 00:00: [place] [address] Medical Branch Obesity Obesity Disease Active 2020- Univers (BMI (BMI 1-09 ity of 30-39.9) 30-39.9) 00:00: [place] [address] Medical Branch Insufficie Insufficie Disease Active 2020-1 U nivers nt nt 1-09 ity of 00:00: [place] care in care in 00 Medical third third Branch trimester trimester 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, disorder, 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 features Supervisio Supervisio Disease Active 2020-0 U nivers n of high n of high 5-14 ity of risk risk 00:00: [place] 00 [facility] in third in third Branch trimester trimester 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 U nivers cardiac cardiac 5-14 ity of arrest arrest 00:00: [place] [address] Medical Branch Anxiety Anxiety Disease Active 2020-0 Univers disorder, disorder, 5-14 ity of unspecifie unspecifie 00:[place] type d type 00 Medical Branch 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 U nivers drug abuse drug abuse 5-14 it y of 00:00: [place] [address] Medical Branch 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 U 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[place]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 [place] Previous Previous Disease Active 2020-0 Unive rs 5-14 ity of section section 00:00: [place] 00 [facility] Medication Medication Disease Active U nivers exposure exposure 5-14 ity of during during 00:00: [place] first first 00 Medical trimester trimester Bran ch of of Smoking Smoking Disease Active Univers 5-14 ity of 00:00: [place] 00 Medical Branch Abdominal Abdominal Disease Active Uni vers pain, pain, 4-27 ity of epigastric epigastric 00[place] Allergies, Adverse Reactions, Alerts Allergy Allergy Status Severity Reaction(s) Onset Inactive Treating Comm ents Source Name Type Date Date Clinician morphine DA Active [facility] [place] morphine DA Active SV "HEART [facility] STOPPED" 12-22 [facility] [place] MORPHINE DRUG Active Unknown-Cmnt 2010-11 Un [place] INGREDI 0-05 ity of 00:00: [place] 00 [facility] Morphine Propensi Active Unknown - 2010-11 Per Uni vers ty to See comments 0-05 patient ity of adverse 00:00: she went [place] reaction 00 into Medical s cardiac Branch arrest after receiving morphine at the hospital March 2011 Social History Social Habit Start Date Stop Date Quantity Comments Source ASSERTION 2019-12-22 University of 00:00:00 [facility] History of tobacco Cigarette Smoker University of use [facility] Exposure to Not sure University of SARS-CoV-2 (event) [facility] Tobacco use and 2020-03-15 2020-03-15 Never used Universit y of exposure 00:00:00 00:00:00 [facility] Cigarettes smoked 2020-03-15 2020-03-15 Univers ity of current (pack per 00:00:00 00:00:00 [place] ) - Reported Branch Alcohol intake 2020-03-15 2020-03-15 Current drinker Unive rsity of 00:00:00 00:00:00 of alcohol [facility] (finding) [place] Sex Ass[birth year] Universit y of 00:00:00 00:00:00 [facility] Smoking Status Start Date Stop Date Source Current every day smoker 2020-03-15 00:00:00 Uni versity of [facility] Medications Ordered Filled Start Stop Current Ordering Indication Dosage Frequency Signature Comments Components Source Medication Medication Date Date Medication? Clinician (SIG) Name Name risperiDONE 2019-11 Yes 2mg Take 2 mg U nivers 2 mg tablet 1-12 by mouth ity of 01:27: daily. [address] SERTraline 2019-11 Yes 50mg Take 50 mg U nivers (ZOLOFT) 50 1-12 by mouth ity of mg tablet 01:27: daily. [address] D5W-LR IV 2019-11 Yes 1000mL at 125 Univ ers infusion 1-12 mL/hr, IV ity of 1,000 mL 00:45: Infusion, [facility] CONTINUOUS Medical , Starting Branch 09/12/20 at 1845, Until Discontinu ed, Routine risperiDONE 2019-11 Yes 2mg Take 2 mg U nivers 2 mg tablet 1-10 by mouth ity of 01:35: daily. [address] SERTraline 2019-11 Yes 50mg Take 50 mg U nivers (ZOLOFT) 50 1-10 by mouth ity of mg tablet 01:35: daily. [address] risperiDONE 2019-11 Yes 2mg Take 2 mg U nivers 2 mg tablet 1-10 by mouth ity of 01:35: daily. [address] SERTraline 2019-11 Yes 50mg Take 50 mg U nivers (ZOLOFT) 50 1-10 by mouth ity of mg tablet 01:35: daily. [address] risperiDONE 2019-11 Yes 2mg Take 2 mg U nivers 2 mg tablet 1-10 by mouth ity of 01:35: daily. [address] SERTraline 2019-11 Yes 50mg Take 50 mg U nivers (ZOLOFT) 50 1-10 by mouth ity of mg tablet 01:35: daily. [address] risperiDONE 2019-11 Yes 2mg Take 2 mg U nivers 2 mg tablet 1-10 by mouth ity of 01:35: daily. [address] SERTraline 2019-11 Yes 50mg Take 50 mg U nivers (ZOLOFT) 50 1-10 by mouth ity of mg tablet 01:35: daily. [address] risperiDONE 2019-11 Yes 2mg Take 2 mg U nivers 2 mg tablet 1-10 by mouth ity of 01:35: daily. [address] SERTraline 2019-11 Yes 50mg Take 50 mg U nivers (ZOLOFT) 50 1-10 by mouth ity of mg tablet 01:35: daily. [address] risperiDONE 2019-11 Yes 2mg Take 2 mg U nivers 2 mg tablet 1-10 by mouth ity of 01:35: daily. [address] SERTraline 2019-11 Yes 50mg Take 50 mg U nivers (ZOLOFT) 50 1-10 by mouth ity of mg tablet 01:35: daily. [address] risperiDONE 2019-11 Yes 2mg Take 2 mg U nivers 2 mg tablet 1-10 by mouth ity of 01:35: daily. [address] SERTraline 2019-11 Yes 50mg Take 50 mg U nivers (ZOLOFT) 50 1-10 by mouth ity of mg tablet 01:35: daily. [address] risperiDONE 2019-11 Yes 2mg Take 2 mg U nivers 2 mg tablet 1-10 by mouth ity of 01:35: daily. [address] SERTraline 2019-11 Yes 50mg Take 50 mg U nivers (ZOLOFT) 50 1-10 by mouth ity of mg tablet 01:35: daily. [address] risperiDONE 2019-11 Yes 2mg Take 2 mg U nivers 2 mg tablet 1-10 by mouth ity of 01:35: daily. [address] SERTraline 2019-11 Yes 50mg Take 50 mg U nivers (ZOLOFT) 50 1-10 by mouth ity of mg tablet 01:35: daily. [address] D5W-LR IV 2019- Yes 1000mL at 125 Univ ers infusion 1-10 mL/hr, IV ity of 1,000 mL 00:45: [place] CONTINUOUS Medical , Starting Branch 09/10/20 at 1845, Until Discontinu ed, Routine PNV 2019-0 Yes [id number] Take 1 Univers 102-iron-fo 5-14 TAB-CAP/M2 it y of late 00:00: by mouth [place] [facility] daily. Medical (VITAFOL Branch FE+, WITH DOCUSATE,) 90 mg iron-1 mg -50 mg-200 mg Cap PNV 2020-0 Yes [id number] Take 1 Univers 102-iron-fo 5-14 TAB-CAP/M2 it y of late 00:00: by mouth [place] [facility] 00 daily. Medical (VITAFOL Branch FE+, WITH DOCUSATE,) 90 mg iron-1 mg -50 mg-200 mg Cap PNV 2020-0 Yes [id number] Take 1 Univers 102-iron-fo 5-14 TAB-CAP/M2 it y of late 00:00: by mouth [place] 1-dss-dha 00 daily. Medical (VITAFOL Branch FE+, WITH DOCUSATE,) 90 mg iron-1 mg -50 mg-200 mg Cap PNV 2020-0 Yes [id number] Take 1 Univers 102-iron-fo 5-14 TAB-CAP/M2 it y of late 00:00: by mouth [place] 1-dss-dha 00 daily. Medical (VITAFOL Branch FE+, WITH DOCUSATE,) 90 mg iron-1 mg -50 mg-200 mg Cap PNV 2020-0 Yes [id number] Take 1 Univers 102-iron-fo 5-14 TAB-CAP/M2 it y of late 00:00: by mouth [place] 1-dss-dha 00 daily. Medical (VITAFOL Branch FE+, WITH DOCUSATE,) 90 mg iron-1 mg -50 mg-200 mg Cap PNV 2020-0 Yes [id number] Take 1 Univers 102-iron-fo 5-14 TAB-CAP/M2 it y of late 00:00: by mouth [place] 1-dss-dha 00 daily. Medical (VITAFOL Branch FE+, WITH DOCUSATE,) 90 mg iron-1 mg -50 mg-200 mg Cap PNV 2020-0 Yes [id number] Take 1 Univers 102-iron-fo 5-14 TAB-CAP/M2 it y of late 00:00: by mouth [place] 1-dss-dha 00 daily. Medical (VITAFOL Branch FE+, WITH DOCUSATE,) 90 mg iron-1 mg -50 mg-200 mg Cap PNV 2020-0 Yes [id number] Take 1 Univers 102-iron-fo 5-14 TAB-CAP/M2 it y of late 00:00: by mouth [place] 1-dss-dha 00 daily. Medical (VITAFOL Branch FE+, WITH DOCUSATE,) 90 mg iron-1 mg -50 mg-200 mg Cap PNV 2020-0 Yes [id number] Take 1 Univers 102-iron-fo 5-14 TAB-CAP/M2 it y of late 00:00: by mouth [place] 1-dss-dha 00 daily. Medical (VITAFOL Branch FE+, WITH DOCUSATE,) 90 mg iron-1 mg -50 mg-200 mg Cap PNV 2020-0 Yes [id number] Take 1 Univers 102-iron-fo 5-14 TAB-CAP/M2 it y of late 00:00: by mouth [place] [address] 00 daily. Medical (VITAFOL Branch FE+, WITH DOCUSATE,) 90 mg iron-1 mg -50 mg-200 mg Cap PNV 2020-0 Yes [id number] Take 1 Univers 102-iron-fo 5-14 TAB-CAP/M2 it y of late 00:00: by mouth [place] [address] 00 daily. Medical (VITAFOL Branch FE+, WITH DOCUSATE,) 90 mg iron-1 mg -50 mg-200 mg Cap PNV 2020-0 Yes [id number] Take 1 Univers 102-iron-fo 5-14 TAB-CAP/M2 it y of late 00:00: by mouth [place] [address] 00 daily. Medical (VITAFOL Branch FE+, WITH DOCUSATE,) 90 mg iron-1 mg -50 mg-200 mg Cap PNV 2020-0 Yes [id number] Take 1 Univers 102-iron-fo 5-14 TAB-CAP/M2 it y of late 00:00: by mouth [address] 00 daily. Medical (VITAFOL Branch FE+, WITH DOCUSATE,) 90 mg iron-1 mg -50 mg-200 mg Cap PNV 2020-0 Yes [id number] Take 1 Univers 102-iron-fo 5-14 TAB-CAP/M2 it y of late 00:00: by mouth [address] 00 daily. Medical (VITAFOL Branch FE+, WITH DOCUSATE,) 90 mg iron-1 mg -50 mg-200 mg Cap PNV 2020-0 Yes [id number] Take 1 Univers 102-iron-fo 5-14 TAB-CAP/M2 it y of late 00:00: by mouth [place] [address] 00 daily. Medical (VITAFOL Branch FE+, WITH DOCUSATE,) 90 mg iron-1 mg -50 mg-200 mg Cap PNV 2020-0 Yes [id number] Take 1 Univers 102-iron-fo 5-14 TAB-CAP/M2 it y of late 00:00: by mouth [address] daily. Medical (VITAFOL Branch FE+, WITH DOCUSATE,) 90 mg iron-1 mg -50 mg-200 mg Cap PNV 2020-0 Yes [id number] Take 1 Univers 102-iron-fo 5-14 TAB-CAP/M2 it y of late 00:00: by mouth [place] 1-dss-dha daily. Medical (VITAFOL Branch FE+, WITH DOCUSATE,) 90 mg iron-1 mg -50 mg-200 mg Cap PNV 2020-0 Yes [id number] Take 1 Univers 102-iron-fo 5-14 TAB-CAP/M2 it y of late 00:00: by mouth [place] 1-dss-dha daily. Medical (VITAFOL Branch FE+, WITH DOCUSATE,) 90 mg iron-1 mg -50 mg-200 mg Cap PNV 2020-0 Yes [id number] Take 1 Univers 102-iron-fo 5-14 TAB-CAP/M2 it y of late 00:00: by mouth [place] 1-[facility] daily. Medical (VITAFOL Branch FE+, WITH DOCUSATE,) 90 mg iron-1 mg -50 mg-200 mg Cap PNV 2020-0 Yes [id number] Take 1 Univers 102-iron-fo 5-14 TAB-CAP/M2 it y of late 00:00: by mouth [place] -[facility] daily. Medical (VITAFOL Branch FE+, WITH DOCUSATE,) 90 mg iron-1 mg -50 mg-200 mg Cap LORazepam 2019- No 2mg 2 mg, Univer s (ATIVAN) 06-23 Oral, ity of tablet 2 mg 02:00: 00:55 ONCE, 1 [place] :[place] dose, Wed Medical 06/22/19 at Branch 2100, CHRISTY gabapentin 2019- No [id number] 300mg Take 1 Univers 300 mg 06-22 capsule by ity of capsule 00:00: 04:59 mouth 2 [place] 00 :00 (two) Medical times [place] daily for 30 days. KCL (K-DUR) 2010-11 Yes 40meq Take 2 Uni vers 20 mEq 0-28 Tabs by ity of tablet 00:00: mouth [place] daily. Medical Branch metoprolol 2010-11 Yes 12.5mg Take 0.5 U nivers tartrate 0-28 Tabs by ity of (LOPRESSOR) 00:00: mouth 2 [place] 25 mg 00 (two) Medical tablet times Branch daily. KCL (K-DUR) 2010-11 Yes 40meq Take 2 Uni vers 20 mEq 0-28 Tabs by ity of tablet 00:00: mouth [place] 00 daily. Medical Branch metoprolol 2010-11 Yes 12.5mg Take 0.5 U nivers tartrate 0-28 Tabs by ity of (LOPRESSOR) 00:00: mouth 2 [place] 25 mg 00 (two) Medical tablet times Branch daily. KCL (K-DUR) 2010-11 Yes 40meq Take 2 Uni vers 20 mEq 0-28 Tabs by ity of tablet 00:00: mouth [place] 00 daily. Medical Branch metoprolol 2010-11 Yes 12.5mg Take 0.5 U nivers tartrate 0-28 Tabs by ity of (LOPRESSOR) 00:00: mouth 2 [place] 25 mg 00 (two) Medical tablet times Branch daily. KCL (K-DUR) 2010-11 Yes 40meq Take 2 Uni vers 20 mEq 0-28 Tabs by ity of tablet 00:00: mouth [place] 00 daily. Medical Branch metoprolol 2010-11 Yes 12.5mg Take 0.5 U nivers tartrate 0-28 Tabs by ity of (LOPRESSOR) 00:00: mouth 2 [place] 25 mg 00 (two) Medical tablet times Branch daily. KCL (K-DUR) 2010-11 Yes 40meq Take 2 Uni vers 20 mEq 0-28 Tabs by ity of tablet 00:00: mouth [place] 00 daily. Medical Branch metoprolol 2010-11 Yes 12.5mg Take 0.5 U nivers tartrate 0-28 Tabs by ity of (LOPRESSOR) 00:00: mouth 2 [place] 25 mg 00 (two) Medical tablet times Branch daily. KCL (K-DUR) 2010-11 Yes 40meq Take 2 Uni vers 20 mEq 0-28 Tabs by ity of tablet 00:00: mouth [place] 00 daily. Medical Branch metoprolol 2010-11 Yes 12.5mg Take 0.5 U nivers tartrate 0-28 Tabs by ity of (LOPRESSOR) 00:00: mouth 2 [place] 25 mg 00 (two) Medical tablet times Branch daily. KCL (K-DUR) 2010-11 Yes 40meq Take 2 Uni vers 20 mEq 0-28 Tabs by ity of tablet 00:00: mouth [place] 00 daily. Medical Branch metoprolol 2010-11 Yes 12.5mg Take 0.5 U nivers tartrate 0-28 Tabs by ity of (LOPRESSOR) 00:00: mouth 2 [place] 25 mg 00 (two) Medical tablet times Branch daily. KCL (K-DUR) 2010-11 2020- No 40meq Take 2 Un [place] 20 mEq 0-28 05-14 Tabs by ity of tablet 00:00: 00:00 mouth [place] 00 :00 daily. Medical Branch metoprolol 2010-11 2020- No 12.5mg Take 0.5 Univers tartrate 0-28 05-14 Tabs by ity of (LOPRESSOR) 00:00: 00:00 mouth 2 [place] 25 mg 00 :00 (two) Medical tablet times Branch daily. magnesium 2010-11 Yes 800mg Take 2 Unive rs oxide 0-05 Tabs by ity of (MAG-OX 00:00: mouth 3 [place] 400) 400 mg 00 (three) Medic al tablet times Branch daily. magnesium 2010-11 Yes 800mg Take 2 Unive rs oxide 0-05 Tabs by ity of (MAG-OX 00:00: mouth 3 [place] 400) 400 mg 00 (three) Medic al tablet times Branch daily. magnesium 2010-11 Yes 800mg Take 2 Unive rs oxide 0-05 Tabs by ity of (MAG-OX 00:00: mouth 3 [place] 400) 400 mg 00 (three) Medic al tablet times Branch daily. magnesium 2010-11 Yes 800mg Take 2 Unive rs oxide 0-05 Tabs by ity of (MAG-OX 00:00: mouth 3 [place] 400) 400 mg 00 (three) Medic al tablet times Branch daily. magnesium 2010-11 Yes 800mg Take 2 Unive rs oxide 0-05 Tabs by ity of (MAG-OX 00:00: mouth 3 [place] 400) 400 mg 00 (three) Medic al tablet times Branch daily. magnesium 2010-11 Yes 800mg Take 2 Unive rs oxide 0-05 Tabs by ity of (MAG-OX 00:00: mouth 3 [place] 400) 400 mg 00 (three) Medic al tablet times Branch daily. magnesium 2010-11 Yes 800mg Take 2 Unive rs oxide 0-05 Tabs by ity of (MAG-OX 00:00: mouth 3 [place] 400) 400 mg 00 (three) Medic al tablet times [place] daily. magnesium 2010-11 2020- No 800mg Take 2 Univ ers oxide 0-05 05-14 Tabs by ity of (MAG-OX 00:00: 00:00 mouth 3 [place] 400) 400 mg 00 :00 (three) Medic al tablet times [place] daily. FLUoxetine Yes 20mg Take 1 Cap U nivers (PROZAC) 20 8-05 by mouth ity of mg capsule 00:00: daily. [address] Branch clonazePAM Yes .5mg Take 1 Tab U nivers (KLONOPIN) 8-05 by mouth 3 ity of 0.5 mg 00:00: (three) [place] tablet 00 times Medical daily. Branch FLUoxetine Yes 20mg Take 1 Cap U nivers (PROZAC) 20 8-05 by mouth ity of mg capsule 00:00: daily. [address] clonazePAM Yes .5mg Take 1 Tab U nivers (KLONOPIN) 8-05 by mouth 3 ity of 0.5 mg 00:00: (three) [place] tablet 00 times Medical daily. Branch FLUoxetine Yes 20mg Take 1 Cap U nivers (PROZAC) 20 8-05 by mouth ity of mg capsule 00:00: daily. [address] clonazePAM Yes .5mg Take 1 Tab U nivers (KLONOPIN) 8-05 by mouth 3 ity of 0.5 mg 00:00: (three) [place] tablet 00 times Medical daily. Branch FLUoxetine Yes 20mg Take 1 Cap U nivers (PROZAC) 20 8-05 by mouth ity of mg capsule 00:00: daily. [address] FLUoxetine Yes 20mg Take 1 Cap U nivers (PROZAC) 20 8-05 by mouth ity of mg capsule 00:00: daily. [address] FLUoxetine Yes 20mg Take 1 Cap U nivers (PROZAC) 20 8-05 by mouth ity of mg capsule 00:00: daily. [address] FLUoxetine Yes 20mg Take 1 Cap U nivers (PROZAC) 20 8-05 by mouth ity of mg capsule 00:00: daily. [place] Medical Branch FLUoxetine Yes 20mg Take 1 Cap U nivers (PROZAC) 20 8-05 by mouth ity of mg capsule 00:00: daily. [place] Medical Branch FLUoxetine Yes 20mg Take 1 Cap U nivers (PROZAC) 20 8-05 by mouth ity of mg capsule 00:00: daily. [place] Medical Branch FLUoxetine Yes 20mg Take 1 Cap U nivers (PROZAC) 20 8-05 by mouth ity of mg capsule 00:00: daily. [place] Medical Branch clonazePAM Yes .5mg Take 1 Tab U nivers (KLONOPIN) 8-05 by mouth 3 ity of 0.5 mg 00:00: (three) [place] tablet 00 times Medical daily. Branch FLUoxetine Yes 20mg Take 1 Cap U nivers (PROZAC) 20 8-05 by mouth ity of mg capsule 00:00: daily. [place] Medical Branch clonazePAM Yes .5mg Take 1 Tab U nivers (KLONOPIN) 8-05 by mouth 3 ity of 0.5 mg 00:00: (three) [place] tablet 00 times Medical daily. Branch FLUoxetine Yes 20mg Take 1 Cap U nivers (PROZAC) 20 8-05 by mouth ity of mg capsule 00:00: daily. [place] Medical Branch clonazePAM Yes .5mg Take 1 Tab U nivers (KLONOPIN) 8-05 by mouth 3 ity of 0.5 mg 00:00: (three) [place] tablet 00 times Medical daily. Branch FLUoxetine Yes 20mg Take 1 Cap U nivers (PROZAC) 20 8-05 by mouth ity of mg capsule 00:00: daily. [place] Medical Branch clonazePAM Yes .5mg Take 1 Tab U nivers (KLONOPIN) 8-05 by mouth 3 ity of 0.5 mg 00:00: (three) [place] tablet 00 times Medical daily. Branch FLUoxetine 2020- No 20mg Take 1 Cap Univers (PROZAC) 20 8-05 11-09 by mouth ity of mg capsule 00:00: 00:00 daily. [place] 00 : Medical Branch FLUoxetine 2020- No 20mg Take 1 Cap Univers (PROZAC) 20 06-06 by mouth ity of mg capsule 00:00: 00:00 [place]. [place] : Medical Branch FLUoxetine 2019- No 20mg Take 1 Cap Univers (PROZAC) 20 06-06 by mouth ity of mg capsule 00:00: 00:00 [place]. [place] : [place] FLUoxetine 2020- No 20mg Take 1 Cap Univers (PROZAC) 20 06-06 by mouth ity of mg capsule 00:00: 00:00 [place]. [place] 00 : Medical Branch clonazePAM 2019- No .5mg Take 1 Tab Univers (KLONOPIN) 06-06 by mouth 3 it y of 0.5 mg 00:00: 00:00 (three) [place] tablet 00 :00 times Medical daily. Branch calcium Yes 500mg Take 1 Tab Uni vers carbonate 5-13 by mouth 3 ity of (OSCAL-500) 00:00: (three) [place] as 500 mg 00 times Medical (1,250 mg) daily with [facility] tablet meals. ferrous Yes 325mg Take 1 Tab Uni vers sulfate 325 5-13 by mouth 3 it y of mg (65 mg 00:00: (three) [place]) 00 times Medical tablet daily with Branch meals. calcium Yes 500mg Take 1 Tab Uni vers carbonate 5-13 by mouth 3 ity of (OSCAL-500) 00:00: (three) [place] 500 mg 00 times Medical (1,250 mg) daily with [facility] tablet meals. ferrous Yes 325mg Take 1 Tab Uni vers sulfate 325 5-13 by mouth 3 it y of mg (65 mg 00:00: (three) [place]) 00 times Medical tablet daily with Branch meals. nicotine Yes 1{patch Apply 1 Uni vers (NICODERM) 5-13 } Patch to ity o f 21 mg/24 hr 00:00: area(s) [place] patch 00 every 24 Medical (twenty-fo Branch ur) hours. thiamine Yes 100mg Take 1 Tab Un [place] (VITAMIN 5-13 by mouth ity of B1) 100 mg 00:00: daily. [place] tablet 00 Medical Branch 2011-0 Yes 1{tbl} Take 1 Tab U nivers vitamin 5-13 by mouth ity of w/FA 00:00: daily. [place] ( 00 Medical RX OR Branch GENERIC EQUIVALENT) tablet nicotine Yes 1{patch Apply 1 Uni vers (NICODERM) 5-13 } Patch to ity o f 21 mg/24 hr 00:00: area(s) [place] patch 00 every 24 Medical (twenty-fo Branch ur) hours. thiamine Yes 100mg Take 1 Tab Un [place] (VITAMIN 5-13 by mouth ity of B1) 100 mg 00:00: daily. [place] tablet 00 Medical Branch calcium Yes 500mg Take 1 Tab Uni vers carbonate 5-13 by mouth 3 ity of (OSCAL-500) 00:00: (three) [place] 500 mg 00 times Medical (1,250 mg) daily with [facility] tablet meals. ferrous Yes 325mg Take 1 Tab Uni vers sulfate 325 5-13 by mouth 3 it y of mg (65 mg 00:00: (three) [place]) 00 times Medical tablet daily with Branch meals. nicotine Yes 1{patch Apply 1 Uni vers (NICODERM) 5-13 } Patch to ity o f 21 mg/24 hr 00:00: area(s) [place] as patch 00 every 24 Medical (twenty-fo Branch ur) hours. thiamine Yes 100mg Take 1 Tab Un [place] (VITAMIN 5-13 by mouth ity of B1) 100 mg 00:00: daily. [place] tablet 00 Medical Branch Yes 1{tbl} Take 1 Tab U nivers vitamin 5-13 by mouth ity of w/FA 00:00: daily. [place] ( 00 Medical RX OR Branch GENERIC EQUIVALENT) tablet Yes 1{tbl} Take 1 Tab U nivers vitamin 5-13 by mouth ity of w/FA 00:00: daily. [place] ( 00 Medical RX OR Branch GENERIC EQUIVALENT) tablet calcium Yes 500mg Take 1 Tab Uni vers carbonate 5-13 by mouth 3 ity of (OSCAL-500) 00:00: (three) [place] as 500 mg 00 times Medical (1,250 mg) daily with Bra nch tablet meals. ferrous Yes 325mg Take 1 Tab Uni vers sulfate 325 5-13 by mouth 3 it y of mg (65 mg 00:00: (three) [place]) 00 times Medical tablet daily with Branch meals. nicotine Yes 1{patch Apply 1 Uni vers (NICODERM) 5-13 } Patch to ity o f 21 mg/24 hr 00:00: area(s) [place] as patch 00 every 24 Medical (twenty-fo Branch ur) hours. thiamine Yes 100mg Take 1 Tab Un [place] (VITAMIN 5-13 by mouth ity of B1) 100 mg 00:00: daily. [place] tablet 00 Medical Branch Yes 1{tbl} Take 1 Tab U nivers vitamin 5-13 by mouth ity of w/FA 00:00: daily. [place] ( 00 Medical RX OR Branch GENERIC EQUIVALENT) tablet calcium Yes 500mg Take 1 Tab Uni vers carbonate 5-13 by mouth 3 ity of (OSCAL-500) 00:00: (three) [place] as 500 mg 00 times Medical (1,250 mg) daily with Bra nyh tablet meals. ferrous Yes 325mg Take 1 Tab Uni vers sulfate 325 5-13 by mouth 3 it y of mg (65 mg 00:00: (three) [place]) 00 times Medical tablet daily with Branch meals. nicotine Yes 1{patch Apply 1 Uni vers (NICODERM) 5-13 } Patch to ity o f 21 mg/24 hr 00:00: area(s) [place] as patch 00 every 24 Medical (twenty-fo Branch ur) hours. thiamine Yes 100mg Take 1 Tab Un [place] (VITAMIN 5-13 by mouth ity of B1) 100 mg 00:00: daily. [place] tablet 00 Medical Branch Yes 1{tbl} Take 1 Tab U nivers vitamin 5-13 by mouth ity of w/FA 00:00: daily. [place] ( 00 Medical RX OR Branch GENERIC EQUIVALENT) tablet calcium Yes 500mg Take 1 Tab Uni vers carbonate 5-13 by mouth 3 ity of (OSCAL-500) 00:00: (three) [place] 500 mg 00 times Medical (1,250 mg) daily with Bra nch tablet meals. ferrous Yes 325mg Take 1 Tab Uni vers sulfate 325 5-13 by mouth 3 it y of mg (65 mg 00:00: (three) [place] Iron) 00 times Medical tablet daily with Branch meals. nicotine Yes 1{patch Apply 1 Uni vers (NICODERM) 5-13 } Patch to ity o f 21 mg/24 hr 00:00: area(s) Rajeev as patch 00 every 24 Medical (twenty-fo Branch ur) hours. thiamine Yes 100mg Take 1 Tab Un gildardo (VITAMIN 5-13 by mouth ity of B1) 100 mg 00:00: daily. [place] tablet 00 Medical Branch Yes 1{tbl} Take 1 Tab U nivers vitamin 5-13 by mouth ity of w/FA 00:00: daily. [place] ( 00 Medical RX OR Branch GENERIC EQUIVALENT) tablet calcium Yes 500mg Take 1 Tab Uni vers carbonate 5-13 by mouth 3 ity of (OSCAL-500) 00:00: (three) Rajeev as 500 mg 00 times Medical (1,250 mg) daily with Bra [facility] tablet meals. ferrous Yes 325mg Take 1 Tab Uni vers sulfate 325 5-13 by mouth 3 it y of mg (65 mg 00:00: (three) [place] Iron) 00 times Medical tablet daily with Branch meals. nicotine Yes 1{patch Apply 1 Uni vers (NICODERM) 5-13 } Patch to ity o f 21 mg/24 hr 00:00: area(s) Rajeev as patch 00 every 24 Medical (twenty-fo Branch ur) hours. thiamine Yes 100mg Take 1 Tab Un gildardo (VITAMIN 5-13 by mouth ity of B1) 100 mg 00:00: daily. [place] tablet 00 Medical Branch Yes 1{tbl} Take 1 Tab U nivers vitamin 5-13 by mouth ity of w/FA 00:00: daily. [place] ( 00 Medical RX OR Branch GENERIC EQUIVALENT) tablet calcium 2020- No 500mg Take 1 Tab Un gildardo carbonate 5-13 05-14 by mouth 3 ity of (OSCAL-500) 00:00: 00:00 (three[place] 500 mg 00 :00 times Medical (1,250 mg) daily with Bra nyh tablet meals. ferrous 2020- No 325mg Take 1 Tab Un gildardo sulfate 325 5-13 05-14 by mouth 3 i ty of mg (65 mg 00:00: 00:00 (three[place]) 00 :00 times Medical tablet daily with Branch meals. nicotine 2019- No 1{patch Apply 1 Un gildardo (NICODERM) 5-14 03-14 } Patch to ity of 21 mg/24 hr 00:00: 00:00 area(s[place] patch 00 :00 every 24 Medical (twenty-fo Branch ur) hours. thiamine 2019- No 100mg Take 1 Tab U nivers (VITAMIN 03-14-14 by mouth ity of B1) 100 mg 00:00: 00:[place] tablet [place] :00 [place] Branch 2019- No 1{tbl} Take 1 Tab Univers vitamin 5-13 05-14 by mouth ity of w/FA 00:00: 00:00 daily. [place] ( 00 :00 Medical RX OR Branch GENERIC EQUIVALENT) tablet Vital Signs Vital Name Observation Time Observation Value Comments Source Systolic blood 2020-09-12 128 mm[Hg] University of pressure 23:45:00 [facility] Diastolic blood 2020-09-12 66 mm[Hg] University o f pressure 23:45:00 [facility] Heart rate 2020-09-12 97 /min University of 23:45:00 [facility] Body temperature 2020-09-12 36.61 Lien University of 23:45:00 [facility] Respiratory rate 2020-09-12 18 /min University of 21:30:00 [facility] Oxygen saturation 2020-09-12 92 /min [facility] in Arterial blood 21:30:00 [facility] Pulse oximetry [place] Body height 2020-09-12 162.6 cm University of 20:00:00 [facility] Body weight 2020-09-12 90.719 kg University of 20:00:00 [facility] BMI 2020-09-12 34.33 kg/m2 University of 20:00:00 [facility] Systolic blood 2020-09-12 128 mm[Hg] University of pressure 23:45:00 [facility] Diastolic blood 2020-09-12 66 mm[Hg] University o f pressure 23:45:00 [facility] Heart rate 2020-09-12 97 /min University of 23:45:00 [facility] Body temperature 2020-09-12 36.61 Lien University of 23:45:00 [facility] Respiratory rate 2020-09-12 18 /min University of 21:30:00 [facility] Oxygen saturation 2020-09-12 92 /min University of in Arterial blood 21:30:00 [facility] bertha by Pulse oximetry Branch Body height 2020-09-12 162.6 cm University of 20:00:00 [facility] Body weight 2020-09-12 90.719 kg University of 20:00:00 [facility] BMI 2020-09-12 34.33 kg/m2 University of 20:00:00 [facility] Heart rate 2020-09-11 82 /min University of 00:51:00 [facility] Oxygen saturation 2020-09-11 98 /min University of in Arterial blood 00:51:00 [facility] oxim[facility] Branch Systolic blood 2020-09-11 91 mm[Hg] University of pressure 00:30:00 [facility] Diastolic blood 2020-09-11 73 mm[Hg] University o f pressure 00:30:00 [facility] Body temperature 2020-09-10 36.5 Lien University of 23:46:00 [facility] Respiratory rate 2020-09-10 18 /min University of 23:46:00 [facility] Body height 2020-09-10 162.6 cm University of 23:46:00 [facility] Body weight 2020-09-10 90.992 kg University of 23:46:00 [facility] BMI 2020-09-10 34.43 kg/m2 University of 23:46:00 [facility] Systolic blood 2020-09-10 133 mm[Hg] University of pressure 22:35:00 [facility] Diastolic blood 2020-09-10 72 mm[Hg] University o f pressure 22:35:00 [facility] Heart rate 2020-09-10 104 /min University of 22:27:00 [facility] Body temperature 2020-09-10 36.72 Lien University of 22:27:00 [facility] Respiratory rate 2020-09-10 18 /min University of 22:27:00 [facility] Body height 2020-09-10 162.6 cm University of 22:27:00 [facility] Body weight 2020-09-10 90.992 kg University of 22:27:00 [facility] BMI 2020-09-10 34.43 kg/m2 University of 22:27:00 [facility] Systolic blood 2020-03-15 129 mm[Hg] University of pressure 13:32:00 [facility] Diastolic blood 2020-03-15 71 mm[Hg] University o f pressure 13:32:00 [facility] Heart rate 2020-03-15 85 /min University of 13:32:00 [facility] Body temperature 2020-03-15 36.78 Lien University of 13:32:00 [facility] Respiratory rate 2020-03-15 18 /min University of 13:32:00 [facility] Body height 2020-03-15 162.6 cm University of 13:32:00 [facility] Body weight 2020-03-15 78.926 kg University of 13:32:00 [facility] BMI 2020-03-15 29.87 kg/m2 University of 13:32:00 [facility] Systolic blood 2020-03-07 114 mm[Hg] University of pressure 01:00:00 [facility] Diastolic blood 2020-03-07 55 mm[Hg] University o f pressure 01:00:00 [facility] Heart rate 2020-03-07 99 /min University of 01:00:00 [facility] Body temperature 2020-03-07 36.67 Lien [place] of 01:00:00 [facility] Respiratory rate 2020-03-07 20 /min University of 01:00:00 [facility] Oxygen saturation 2020-03-07 98 /min University of in Arterial blood 01:00:00 [facility] Pulse oximetry [place] Body weight 2020-03-06 68.04 kg University of 23:00:00 [facility] BMI 2020-03-06 25.75 kg/m2 University of 23:00:00 [facility] Body height 2020-03-06 162.6 cm University of 22:57:00 [facility] Systolic blood 2019-06-23 146 mm[Hg] University of pressure 02:08:00 [facility] Diastolic blood 2019-06-23 89 mm[Hg] University o f pressure 02:08:00 [facility] Heart rate 2019-06-23 130 /min made aware University of 02:08:00 [facility] Body temperature 2019-06-23 36.72 Lien University of 02:08:00 [facility] Respiratory rate 2019-06-23 18 /min University of 02:08:00 [facility] Oxygen saturation 2019-06-23 95 /min University of in Arterial blood 02:08:00 [place] Medi bertha by Pulse oximetry Branch Body weight 2019-06-23 68.04 kg University of 00:05:00 [facility] BMI 2019-06-23 25.75 kg/m2 [facility] 00:05:00 [facility] Systolic blood 2019-06-10 117 mm[Hg] [place] of pressure 19:43:00 [facility] Diastolic blood 2019-06-10 66 mm[Hg] [place] o pressure 19:43:00 [facility] Heart rate 2019-06-10 110 /min [facility] 19:43:00 [facility] Body temperature 2019-06-10 37.06 Lien [facility] 19:43:00 [facility] Respiratory rate 2019-06-10 18 /min [facility] 19:43:00 [facility] Body weight 2019-06-10 63.504 kg [facility] 19:43:00 [facility] BMI 2019-06-10 24.03 kg/m2 [facility] 19:43:00 [facility] Oxygen saturation 2019-06-10 97 /min [facility] in Arterial blood 19:43:00 [facility] P[facility] oxim[facility] Branch Procedures Procedure Date / Time Performing Clinician Source Performed [id number] 2020-09-13 00:00:00 [facility] ADC / LCC - DRUG SCREEN 2020-09-12 22:07:00 ReidGage [facility] TRIAGE Medical Branch MAGNESIUM 2020-09-12 21:06:00 [facility] COMP. METABOLIC PANEL 2020-09-12 21:06:00 [facility] ([id number]) Medical Branch CBC WITH DIFF 2020-09-12 21:06:00 [facility] ECHO ROUTINE W/DOPPLER 2020-09-12 20:43:53 Fabrice Rivera [facility] COLOR Medical Branch CONSENT/REFUSAL FOR 2020-09-12 19:55:29 Doctor Unassigned, No [facility] DIAGNOSIS AND TREATMENT Name Medical Branch ASSIGNMENT OF BENEFITS 2020-09-12 19:39:54 Doctor Unassigned, No [facility] Name Medical Branch CBC WITH DIFF 2020-09-11 00:30:00 [facility] COVID-19 (ID NOW RAPID 2020-09-11 00:15:00 ReidGage [facility] TESTING) Medical Branch CONSENT/REFUSAL FOR 2020-09-10 23:34:19 [facility]igned, [facility] Medical Branch ASSIGNMENT OF BENEFITS 2020-09-10 23:33:44 Doctor Unassigned, No [facility] GROUP B STREPTOCOCCUS BY 2020-09-10 22:45:00 [facility] Branch L&D VISIT 2020-09-10 06:01:00 Doctor Unassigned, No [facility] (NON-DELIVERED) [facility] EXTERNAL PROVIDER 2020-04-18 05:01:00 Doctor Unassigned, No [facility] RECORDS [facility] ADC / LCC - DRUG SCREEN 2020-03-15 14:26:00 Gage Reid [facility] ASSIGNMENT OF BENEFITS 2020-03-15 13:18:47 Doctor Unassigned, No [facility] POCT URINALYSIS W/O 2020-03-15 00:00:00 Gage Reid [facility] SPECIFIC GRAVITY [facility] POCT TEST 2020-03-07 00:38:00 Edson Chambers [facility] MAGNESIUM 2020-03-06 23:24:00 Edson Chambers [facility] COMP. METABOLIC PANEL 2020-03-06 23:24:00 Edson Chambers [facility] ([id number]) [facility] SALICYLATE 2020-03-06 23:24:00 Edson Chambers [facility] ETHANOL 2020-03-06 23:24:00 Edson Chambers [facility] CBC WITH DIFFERENTIAL 2020-03-06 23:24:00 Edson Chambers [facility] URINALYSIS 2020-03-06 23:21:00 Edson Chambers [facility] ADC / LCC - DRUG SCREEN 2020-03-06 23:21:00 Edson Chambers [facility] EKG-12 LEAD 2020-03-06 23:04:57 Edson hCambers [facility] NOTICE OF PRIVACY 2019-06-10 19:40:45 Doctor Unassigned, No [facility] PRACTICES [facility] CONSENT/REFUSAL FOR 2019-06-10 19:34:31 Doctor Unassigned, No Un [facility] DIAGNOSIS AND TREATMENT Name Medical Branch Encounters Start End Encounter Admission Attending Care Care Encounter Source Date/Time Date/Time Type Type Clinicians Facility Department ID 2021-08-31 Outpatient P [facility] RACHEL [id number] Univers 04:56:11 ity of [facility] 2021-08-31 Outpatient P [facility] RACHEL [id number] Univers 04:16:00 ity of [facility] 2021-08-31 Outpatient P [facility] RACHEL [id number] Univers 04:15:28 ity of [facility] 2020-09-13 Inpatient UR Sherman Collazo [facility] [id number] [facility] 22:39:00 [id number] [facility] 2020-07-25 Inpatient Rj Diez [facility] PSY [id number] 10:46:00 Rj Diez - [address] [place] [address] 2021-09-23 2021-09-23 Outpatient R [facility] [id number] Univers 15:00:00 15:00:00 [id number] ity [facility] 2021-08-21 2021-08-21 Outpatient R [facility] [id number] Univers 09:30:00 09:30:00 [id number] ity of [facility] 2021-08-21 2021-08-21 Outpatient R [facility] [id number] Univers 09:30:00 09:30:00 ity [facility] 2020-09-12 2020-09-12 [facility] [id number] 13:34:00 18:35:00 Encounter Cam [place] [id number] [place] [id number] [place] [id number] [facility] 2020-09-12 2020-09-12 [facility] [id number] Univers 13:34:00 18:35:00 Encounter Cam [place] [id number] [facility] [id number] [facility] [id number] [address] 2020-09-12 2020-09-12 Outpatient R GAGE REID [facility] [id number] Univers 09:45:00 09:45:00 [id number] ity of [facility] 2020-09-12 2020-09-12 Outpatient R GAGE REID [facility] [id number] Univers 09:45:00 09:45:00 ity of [facility] 2020-09-11 2020-09-11 Outpatient R JEANETTE [facility] [id number] Univers 15:45:00 15:45:00 ity of [facility] 2020-09-11 2020-09-11 Outpatient R GAGE REID [facility] [id number] Univers 15:45:00 15:45:00 ity [facility] 2020-09-11 2020-09-11 Telephone Gage Reid [facility] [id number] Univers 00:00:00 00:00:00 Cam [place] [id number] i ty of [id number] Profess[place] [phone] Nh dical [address] 2020-09-11 2020-09-11 [facility] Gage Reid [facility] [id number] Univers 00:00:00 00:00:00 Management Cam [place] [id number] ity of [place] [id number] [id number] Nh dical [address] 2020-09-11 2020-09-11 [employer] Gage Reid [facility] 1.2.840.114 [id number] 00:00:00 00:00:00 Cam [place] [id number] [place] [id number] Professio [id number] [address] 2020-09-10 2020-09-10 [facility] Gage Reid [facility] 1.2.840.114 [id number] Univers 17:30:00 19:10:00 Encounter Cam [place] [id number] ity [id number] [id number] [address] 2020-09-10 2020-09-10 Routine Gage Reid [facility] [id number] Univers 16:09:56 17:20:04 Cam [place] [id number] ity of Visit Janelle [id number] Janes Villegas [id number] [place] [id number] [facility] 2020-09-10 2020-09-10 Outpatient R JE[facility]TE [facility] [id number] Univers 16:00:00 16:00:00 ity [facility] 2020-09-10 2020-09-10 Outpatient R REID [facility] [id number] Univers 16:00:00 16:00:00 ity [facility] 2020-09-03 2020-09-03 Outpatient R REID [facility] [id number] Univers 13:00:00 13:00:00 ity [facility] 2020-09-03 2020-09-03 Outpatient R JEANETTE [facility] [id number] Univers 13:00:00 13:00:00 ity [facility] 2020-08-31 2020-08-31 Outpatient R ADUM, [facility] [id number] Univers 08:30:00 08:30:00 JYOTI ity [facility] 2020-08-31 2020-08-31 Outpatient R ADUM, [facility] [id number] Univers 08:30:00 08:30:00 JYOTI ity [facility] 2020-08-21 2020-08-21 Outpatient R ADUM, [facility] [id number] Univers 10:30:00 10:30:00 JYOTI ity [facility] 2020-08-21 2020-08-21 Outpatient R ADUM, [facility] [id number] Univers 10:30:00 10:30:00 JYOTI ity [facility] 2020-08-14 2020-08-14 Outpatient R ADUM, [facility] [id number] Univers 10:30:00 10:30:00 JYOTI [id number] ity [facility] 2020-08-14 2020-08-14 Outpatient R ADUM, [facility] [id number] Univers 10:30:00 10:30:00 JYOTI ity [facility] 2020-08-13 2020-08-13 Outpatient R REIDGAGE [facility] [id number] Univers 11:00:00 11:00:00 [id number] ity [facility] 2020-08-13 2020-08-13 Outpatient R REIDGAGE [facility] [id number] Univers 11:00:00 11:00:00 ity [facility] 2020-07-25 2020-08-02 Inpatient 1 DiezRj [facility] PSY [id number] [address]. 10:07:00 13:01:00 Rj Diez [facility] 2020-07-23 2020-07-23 Outpatient R REIDGAGE [facility] [id number] Univers 09:00:00 09:00:00 [id number] [facility] [place] [facility] 2020-07-20 2020-07-20 Outpatient R ADUM, [facility] [id number] Univers 08:30:00 08:30:00 JYOTI [id number] [facility] [place] [facility] 2020-07-20 2020-07-20 Outpatient R ADUM, [facility] [id number] Univers 08:30:00 08:30:00 JYOTI [facility] 2020-07-17 2020-07-17 Outpatient R ADUM, [facility] [id number] Univers 13:30:00 13:30:00 JYOTI [id number] [facility] [place] [facility] 2020-07-17 2020-07-17 Outpatient R ADUM, [facility] [id number] Univers 13:30:00 13:30:00 [facility]I [facility] [place] [facility] 2020-07-12 2020-07-12 Outpatient R REID [facility] [id number] Univers 14:30:00 14:30:00 ity [facility] 2020-07-12 2020-07-12 Outpatient R REID GAGE [facility] [id number] Univers 14:30:00 14:30:00 ity [facility] 2020-06-19 2020-06-19 Outpatient R REID, [facility] [id number] Univers 14:30:00 14:30:00 [id number] ity [facility] 2020-06-19 2020-06-19 Outpatient R REID, GAGE [facility] [id number] Univers 14:30:00 14:30:00 ity of [facility] 2020-04-30 2020-04-30 Outpatient R [facility] [id number] Univers 08:45:00 08:45:00 [id number] ity of [facility] 2020-04-30 2020-04-30 Outpatient R [facility] [id number] Univers 08:45:00 08:45:00 ity of [facility] 2020-04-26 2020-04-26 Typewriter Aligner Ultrasound, [facility] 1.2 .840.114 [id number] Univers 10:31:59 11:51:31 Visit Cheikh Campos BOND MANAGER [id number] 0 ity of [facility] [id number] Rajeev as MATERNAL [phone] Med ical & CHILD [address] [place] [address] 2020-04-26 2020-04-26 Outpatient P [facility] [id number] Univers 10:15:00 10:15:00 ity of [facility] 2020-04-26 2020-04-26 Outpatient [facility] [id number] Univers 10:00:00 10:00:00 [id number] ity [facility] 2020-04-26 2020-04-26 Letter Doctor FABRICE 1.2.840.114 [id number] Univers 00:00:00 00:00:00 (Out) Unassigned, ZA [id number] ity of [place] [facility] [id number] Rajeev as [phone] [address] 2020-04-20 2020-04-20 Outpatient R [facility] [id number] Univers 15:00:00 15:00:00 [id number] ity of [facility] 2020-04-20 2020-04-20 Outpatient R [facility] [id number] Univers 15:00:00 15:00:00 ity of [facility] 2020-04-20 2020-04-20 Telemedici Fellow, Luiz [facility] U NIVERSIT 1.2.840.114 [id number] Univers 08:18:30 08:33:30 ne Visit [place]ro Savage Y HEALTH [id number] ity of [id number] [id number] [facility] [address] [place] 2020-04-18 2020-04-18 Orders Doctor FABRICE 1.2.840.114 [id number] Univers 00:00:00 00:00:00 Only Unassigned, ZA [id number] ity of [place] [facility] [id number] Rajeev as [phone] [facility] [address] 2020-04-12 2020-04-12 Outpatient R JEANETTE GAGE [facility] [id number] Univers 08:45:00 08:45:00 [id number] ity of [facility] 2020-04-12 2020-04-12 Outpatient R JEANETTE [facility] [id number] Univers 08:45:00 08:45:00 ity of [facility] 2020-04-06 2020-04-06 Telemedici Fellow, [facility] N[facility] 1.2.840.114 [id number] Univers 08:00:00 08:30:00 ne Visit Olga Lidia [place] Y HEALTH [id number] ity of [id number] [id number] [facility] [address] [place] 2020-04-06 2020-04-06 Outpatient R [facility] [id number] Univers 08:00:00 08:00:00 ity of [facility] 2020-04-06 2020-04-06 Outpatient R [facility] [id number] Univers 08:00:00 08:00:00 ity of [facility] 2020-03-30 2020-03-30 [facility] [id number] Univers 00:00:00 00:00:00 Management Sanjana Mackay [id number] [id number] [id number] [facility] 134 [facility] 2020-03-22 2020-03-22 Outpatient R [facility] [id number] Univers 10:15:00 10:15:00 [id number] ity of [facility] 2020-03-20 2020-03-20 Refill Gage Reid [facility] [id number] Univers 00:00:00 00:00:00 [place] [id number] i ty [id number] [id number] [address] 2020-03-15 2020-03-15 Outpatient R [facility] [id number] Univers 10:15:00 10:15:00 [id number] ity of [facility] 2020-03-15 2020-03-15 Initial Gage Reid [facility] [id number] Univers 08:20:24 09:19:11 Ondina Mackay [id number] ity of [id number] [phone] [address] 2020-03-15 2020-03-15 Outpatient R GAGE REID [facility] [id number] Univers 08:00:00 08:00:00 ity of [facility] 2020-03-15 2020-03-15 Orders Doctor FABRICE 1.2.840.114 [id number] Univers 00:00:00 00:00:00 Only Unassigned, ZA [id number] ity of [place] [facility] [id number] Rajeev as [phone] [facility] [address] [place] 2020-03-15 2020-03-15 Telephone Gage Reid [facility] 1.2.840.114 [id number] Univers 00:00:00 00:00:00 Ondina Mackay [id number] i ty [id number] [id number] [address] 2020-03-06 2020-03-06 Emergency Edson Chambers [facility] 1.2.840.114 [id number] Univers 17:55:54 22:34:00 Jose Rafael Mackay [id number] i ty of [place] [id number] [id number] [facility] [address] [place] 2020-03-06 2020-03-06 Emergency X Edson CHAMBERS [facility] ERT [id number] Univers 17:55:54 17:55:54 ity of [facility] 2020-02-01 2020-02-01 Telephone Faculty, [facility] 1.2.840.114 [id number] Univers 00:00:00 00:00:00 Ang Rmchp BOND MANAGER [id number] ity of [facility] [id number] Rajeev as MATERNAL [phone] Med ical & CHILD 107 [facility] 2019-06-22 2019-06-22 Emergency Deedee, TRAUMA [id number] Univers 19:07:21 21:13:00 [facility] [id number] [id number] [id number] [facility] [address] [place] 2019-06-10 2019-06-10 Emergency Yvon, [facility] 1.2.840.114 [id number] Univers 14:44:46 15:34:00 Sepideh Barajas [place] [id number] ity of [id number] [phone] [facility] [address] [place] 2019-06-10 2019-06-10 Orders Doctor FABRICE 1.2.840.114 [id number] Univers 00:00:00 00:00:00 Only Unassigned, ZA [id number] ity of [place] [facility] [id number] Rajeev as [phone] [facility] [address] [place] Results Test Description Test Time Test Comments [...] = PLTMR) NORMAL IOANA L Comments to Custom Ski Maker: TO BE COLLECTED BY LABRUBELLA [id number] 14:15:00 Test Item Value Reference Range Interpretation Comments RUBELLA SCREEN 73.8 IUnit/ml Results >10. 0IUnits/ml (test code = are considered positive RUBSC) inaccordance wi th the CLSI guidelines and based on the [employer] S tandard for Anti-Rubell a serum as anindicator of immune status and a br eakpoint to detect mostseropositiv e persons. Comments to Custom Ski Maker: please use [facility]in [facility] [id number] 07:26:00 Test Item Value Reference Range Interpretation Comments HEMOGLOBIN (test code = HGB) 10.9 g/dL 10.7-13.9 N HEMATOCRIT (test code = HCT) 34.6 % 32.1-42.1 N AG HEPATITIS B [id number] 04:56:00 Test Item Value Reference Range Interpretation Comments AG HEPATITIS B SURFACE (test code NONREACTIVE NONREACTIVE = HBSAG) IS CONSENT FORM SIGNED FOR HIV TESTING? YAB HEPATITIS C [id number] 04:56:00 Test Item Value Reference Range Interpretation Comments AB HEPATITIS C (test code = NONREACTIVE NONREACTIVE HCVAB) SIGNAL TO CUTOFF (test code = 0.10 <0.80 N CUTOFF) IS CONSENT FORM SIGNED FOR HIV TESTING? YAB [id number] 04:56:00 Test Item Value Reference Range Interpretation Comments AB TREPONEMA (test code = TREPAB) NONREACTIVE NONREACTIVE IS CONSENT FORM SIGNED FOR HIV TESTING? YAB HIV 1 04:56:00 Test Item Value Reference Range Interpretation Comments AB HIV 1 2 (test code = [id number]) NONREACTIVE IS CONSENT FORM SIGNED FOR HIV TESTING? YAG HEPATITIS B [id number] 04:56:00 Test Item Value Reference Range Interpretation Comments AG HEPATITIS B SURFACE (test code NONREACTIVE NONREACTIVE = HBSAG) IS CONSENT FORM SIGNED FOR HIV TESTING? B HEPATITIS C [id number] 04:56:00 Test Item Value Reference Range Interpretation Comments AB HEPATITIS C (test code = NONREACTIVE NONREACTIVE HCVAB) SIGNAL TO CUTOFF (test code = 0.10 <0.80 N CUTOFF) IS CONSENT FORM SIGNED FOR HIV TESTING? RICHAB [id number] 04:56:00 Test Item Value Reference Range Interpretation Comments AB TREPONEMA (test code = TREPAB) NONREACTIVE NONREACTIVE IS CONSENT FORM SIGNED FOR HIV TESTING? YAB HIV 1 04:56:00 Test Item Value Reference Range Interpretation Comments AB HIV 1 2 (test NONREACTIVE NONREACTIVE Done by [facility] code = [id number]) 4th Gen HIV Ag/Ab Combo Screen IS CONSENT FORM SIGNED FOR HIV TESTING? YAG HEPATITIS B [id number] 04:41:00 Test Item Value Reference Range Interpretation Comments AG HEPATITIS B SURFACE (test code NONREACTIVE NONREACTIVE = HBSAG) IS CONSENT FORM SIGNED FOR HIV TESTING? YAB HEPATITIS C [id number] 04:41:00 Test Item Value Reference Range Interpretation Comments AB HEPATITIS C (test code = HCVAB) NONREACTIVE SIGNAL TO CUTOFF (test code = CUTOFF) <0.80 IS CONSENT FORM SIGNED FOR HIV TESTING? YAB [id number] 04:41:00 Test Item Value Reference Range Interpretation Comments AB TREPONEMA (test code = TREPAB) NONREACTIVE NONREACTIVE IS CONSENT FORM SIGNED FOR HIV TESTING? YAB HIV 1 04:41:00 Test Item Value Reference Range Interpretation Comments AB HIV 1 2 (test code = NES60XV) NONREACTIVE IS CONSENT FORM SIGNED FOR HIV TESTING? YCOMPREHENSIVE METABOLIC [id number] 02:39:00 Test Item Value Reference Range Interpretation [...] code = ALKP) COVID 19 Asymptomatic IH [id number] 00:09:00 Test Item Value Reference Range Interpretation [...] cleared or approved; th e test hasbeen authorshreya jacobs by FDA under an Emerge ncy Use [...] of Accreditation. This test is only authori reynaldo for the duration of thedeclaration that circumstances e xist justifying theauthorizatio n of emergency use o f in vitro diagnostic test sfor detection and/o r diagnosis of CO VID-19 under Eabbhsf41 4(b)(1) of the Act, 21 U.S .C. 360bbb-3(b)(1), unless theauthorizatio n is terminated or r evoked sooner. CBC W/AUTO [id number] 00:00:00 Test Item Value Reference Range Interpretation Comments WHITE BLOOD CELL (test 20.9 K/mm3 6.6-12.1 HH RESUL TS CALLED TO code = WBC) heleen.READ BACK & CONFIRMED? yes. BY F.LAB.MR 5217. RED BLOOD CELL (test 3.61 M/mm3 3.45-5.01 [...] NORMAL NORMAL REQUIRED (test code = PLTMR) [facility] - DRUG SCREEN [id number] 22:29:00 Test Item Value Reference Range Interpretation Comments BENZO U (test code = Presumptive Negative A 9072870224) Positive ARNOLD U (test code = Negative Negative 1077123327) AMPHET (test code = Negative Negative 1423294940) THC (test code = Presumptive Negative A Confirmatio n of 9186101502) Positive Presumptive Positive THC result requires physician order . METHADONE (test code Negative Negative = 4518418030) Meth U (test code = Negative Negative 0222540035) OPIATES (test code = Presumptive Negative A 3329469707) Positive Cocaine Metabolite Negative Negative (test code = 5616685848) PROPOXY (test code = Negative Negative 8952969488) Tric U (test code = Negative Negative 0371093877) PCP (test code = Negative Negative 7386196984) OXYCOD (test code = Negative Negative 6539391223) YAMIL (test code = Urine Drug Cutoff YAMIL) Ranges Benzodiazepines: ? ? 150 ng/mLBarbiturates : ?200 ng/mLAmphetamine: ? 500 ng/mLCannabinoids : ?50 ?ng/mLMethadone: ? 200 ng/mLMethamphetam ine: ? ? 500 ng/mL Opiates: ? 100 ng/mL or 2000 ng/mLCocaine: ? 150 ng/mLPropoxyphene : ?300 ng/mLTricyclics: ?300 ng/mLOxycodone: ? 100 ng/mLPCP: ? 25 ?ng/mL The results are to be used only for medical (i.e., treatment) purposes. Unconfirmed screening results must not be used for non-medical purposes (e.g., employment testing, legal testing). Lab Interpretation Abnormal (test code = 81974-6) [facility]. METABOLIC PANEL (23257)2020-09-12 21:50:00 Test Item Value Reference Range Interpretation Comments NA (test code = 133 mmol/L 135-145 L 1365400959) K (test code = 3.8 mmol/L 3.5-5 7449142993) CL (test code = 106 mmol/L 98-108 5308883725) CO2 TOTAL (test code = 23 mmol/L 23-31 1785930205) AGAP (test code = 2-16 8031884339) BUN (test code = 10 mg/dL 7-23 2469048937) GLUCOSE (test code = 106 mg/dL 70-110 4585072719) CREATININE (test code = 0.53 mg/dL 0.5-1.04 2334242770) TOTAL BILI (test code = 0.3 mg/dL 0.1-1.4 1833432289) CALCIUM (test code = 8.3 mg/dL 8.6-10.6 L 6988228015) T PROTEIN (test code = 6.0 g/dL 6.3-8.2 L 2811291297) ALBUMIN (test code = 3.1 g/dL 3.5-5 L 8401458188) ALK PHOS (test code = 185 U/L 34-122 H 9078434425) ALTv (test code = 15 U/L 5-35 1742-6) AST(SGOT) (test code = 24 U/L 13-40 8467113599) eGFR Calculation mL/min/1.73m2 (Non-) (test code = 1465631293) eGFR Calculation mL/min/1.73m2 () (test code = 5958188429) YAMIL (test code = YAMIL) Association of Glomerular Filtration Rate (GFR) and Staging of Kidney Disease* + --+ --+ ------+| GFR (mL/min/1.73 m2) ?| With Kidney Damage ?| ?Without Kidney Damage+ --------+ --------+ +| ?>90 ?| ?Stage one ?| ? Normal ?+ ---+ ---+ -------+| ?60-89 ?| ?Stage two ?| ? Decreased GFR ? + --+ --+ ------+| ?30-59 ?| ?Stage three ?| ? Stage three ? + --+ --+ ------+| ?15-29 ?| ?Stage four ? | ? Stage four ?+ ---+ ---+ -------+| ?<15 (or dialysis) ? ?| ?Stage five ? | ? Stage five ?+ ---+ ---+ -------+ *Each stage assumes the associated GFR level has been in effect for at least three months. ?Stages 1 to 5, with or without kidney disease, indicate chronic kidney disease. Notes: Determination of stages one and two (with eGFR >59mL/min/1.73 m2) requires estimation of kidney damage for at least three months as defined by structural or functional abnormalities of the kidney, manifested by either:Pathological abnormalities or Markers of kidney damage (including abnormalities in the composition of the blood or urine or abnormalities in imaging tests). Lab Interpretation Abnormal (test code = 15871-1) [facility]00 Test Item Value Reference Range Interpretation Comments MAGNESIUM (test code = 6215661334) 1.8 mg/dL 1.7-2.4 Lab Interpretation (test code = Normal 26278-6) [facility] [id number] 21:37:00 Test Item Value Reference Range Interpretation Comments WBC (test code = See_Comment H [Automated 6690-2) message] The system which generated this result transmit bhavya reference range : 4.30 - 11.10 10*3/?L. The reference range was not used to interpret this result as normal/abnormal . RBC (test code = See_Comment L [Automated 789-8) message] The system which generated this result transmit bhavya reference range : 3.93 - 5.25 10*6/?L. The reference range was not used to interpret this result as normal/abnormal . HGB (test code = 10.7 g/dL 11.6-15 L 718-7) HCT (test code = 32.4 % 35.7-45.2 L 4544-3) MCV (test code = 94.7 fL 80.6-95.5 787-2) MCH (test code = 31.3 pg 25.9-32.8 785-6) MCHC (test code = 33.0 g/dL 31.6-35.1 786-4) RDW-SD (test code = 49.1 fL 39-49.9 98309-2) RDW-CV (test code = 14.3 % 12-15.5 788-0) PLT (test code = See_Comment [Automated 777-3) message] The system which generated this result transmit bhavya reference range : 166 - 358 10*3/ ?L. The reference range was not u sed to interpret th is result as normal/abnormal . MPV (test code = 10.0 fL 9.5-12.9 16089-3) NRBC/100 WBC (test See_Comment [Automat ed code = 9648464706) message] The system which generated this result transmit bhavya reference range : 0.0 - 10.0 /100 WBCs. The reference range was not used to interpret this result as normal/abnormal . NRBC x10^3 (test code <0.01 See_Comment [Auto mated = 9016282411) message] The system which generated this result transmit bhavya reference range : 10*3/?L. The reference range was not used to interpret this result as normal/abnormal . GRAN MAT (NEUT) % 77.1 % (test code = 770-8) IMM GRAN % (test code 1.00 % = 1019412961) LYMPH % (test code = 15.4 % 736-9) MONO % (test code = 5.1 % 5905-5) EOS % (test code = 1.1 % 713-8) BASO % (test code = 0.3 % 706-2) GRAN MAT x10^3(ANC) 11.59 10*3/uL 1.88-7.09 H (test code = 5418374360) IMM GRAN x10^3 (test 0.15 10*3/uL 0-0.06 H code = 1801155065) LYMPH x10^3 (test code 2.32 10*3/uL 1.32-3.29 = 731-0) MONO x10^3 (test code 0.76 10*3/uL 0.33-0.92 = 742-7) EOS x10^3 (test code = 0.17 10*3/uL 0.03-0.39 711-2) BASO x10^3 (test code 0.05 10*3/uL 0.01-0.07 = 704-7) Lab Interpretation Abnormal (test code = 27431-2) [facility]PT[facility] BY [id number] 14:02:00 Test Item Value Reference Range Interpretation Comments Group B Streptococcus by PCR (test Negative Negative code = 61968-1) Lab Interpretation (test code = Normal 00111-5) [facility] ([facility] NOW RAPID TESTING)2020-09-11 00:51:00 Test Item Value Reference Range Interpretation Comments SARS-CoV-2 Rapid ID NOW Not Detected Not Detected (test code = 66397-2) YAMIL (test code = YAMIL) ID NOW COVID-19 Assay is an isothermal nucleic acid amplification test intended for the qualitative detection of nucleic acid from SARS-CoV-2 viral RNA in nasopharyngeal (ART COORDINATOR) specimens. It is used under Emergency Use Authorization (EUA) by FDA. The limit of detection (LOD) of the assay is 125 Genome Equivalents/mL. A positive result is indicative of the presence of SARS-CoV-2 RNA. ?Clinical correlation with patient history and other diagnostic information is necessary to determine patient infection status. A negative (Not Detected) result does not preclude SARS-CoV-2 infection. In patients with clinical symptoms and other tests that are consistent with SARS-CoV-2 infection, negative results should be treated as presumptive negative and a new specimen should be tested with alternative PCR molecular test. Invalid: Please collect a new specimen for repeat patient testing if clinically indicated. Lab Interpretation Normal (test code = 47034-0) [facility] WITH [id number] 00:50:00 Test Item Value Reference Range Interpretation Comments WBC (test code = See_Comment H [Automated 1690-2) message] The sy stem which generated this result transmitted reference range : 4.30 - 11.10 10*3/?L. The reference range was not used to interpret this result as normal/abnormal . RBC (test code = See_Comment L [Automated 789-8) message] The sy stem which generated this result transmitted reference range : 3.93 - 5.25 10*6/?L. The reference range was not used to interpret this result as normal/abnormal . HGB (test code = 10.8 g/dL 11.6-15 L 718-7) HCT (test code = 32.6 % 35.7-45.2 L 4544-3) MCV (test code = 95.0 fL 80.6-95.5 787-2) MCH (test code = 31.5 pg 25.9-32.8 785-6) MCHC (test code = 33.1 g/dL 31.6-35.1 786-4) RDW-SD (test code = 50.4 fL 39-49.9 H 95355-6) RDW-CV (test code = 14.5 % 12-15.5 788-0) PLT (test code = See_Comment [Automated 777-3) message] The sy stem which generated this result transmitted reference range : 166 - 358 10*3/ ?L. The reference r miguelina was not used to interpret this result as normal/abnormal . MPV (test code = 9.9 fL 9.5-12.9 43306-7) NRBC/100 WBC (test See_Comment [Automat ed code = 1557361157) message] The system which generated this result transmitted reference range : 0.0 - 10.0 /100 WBCs. The refer ence range was not u sed to interpret th is result as normal/abnormal . NRBC x10^3 (test code <0.01 See_Comment [Auto mated = 3288966018) message] The s [employer] which generated this result transmitted reference range : 10*3/?L. The reference range was not used to interpret this result as normal/abnormal . GRAN MAT (NEUT) % 76.4 % (test code = 770-8) IMM GRAN % (test code 0.90 % = 2766283768) LYMPH % (test code = 16.0 % 736-9) MONO % (test code = 5.2 % 5905-5) EOS % (test code = 1.3 % 713-8) BASO % (test code = 0.2 % 706-2) GRAN MAT x10^3(ANC) 9.39 10*3/uL 1.88-7.09 H (test code = 0285236776) IMM GRAN x10^3 (test 0.11 10*3/uL 0-0.06 H code = 1184728315) LYMPH x10^3 (test code 1.97 10*3/uL 1.32-3.29 = 731-0) MONO x10^3 (test code 0.64 10*3/uL 0.33-0.92 = 742-7) EOS x10^3 (test code = 0.16 10*3/uL 0.03-0.39 711-2) BASO x10^3 (test code 0.03 10*3/uL 0.01-0.07 = 704-7) Lab Interpretation Abnormal (test code = 24977-4) [facility] HospitalLactate [id number] 08:28:44 Test Item Value Reference Range Interpretation Comments LDH (test code = LDH) 166 U/L 120-246 Comprehensive Metabolic [id number] 08:16:47 Test Item Value Reference Range Interpretation [...] = Lipemia) 0 g/dL 1-2 Comprehensive Metabolic [id number] 08:16:47 Test Item Value Reference Range Interpretation [...] ag e have not been validated by th e MDRD study and should be interpreted wit [...] ag e have not been validated by th e MDRD study and should be interpreted wit [...] = 0 g/dL 1-2 Lipemia) Comprehensive Metabolic [id number] 08:16:47 Test Item Value Reference Range Interpretation [...] ag e have not been validated by e MDRD study and should be interpreted wit [...] ag e have not been validated by e MDRD study and should be interpreted wit [...] g/dL 1-2 Lipemia) Complete Blood Count without [id number] 08:09:40 Test Item Value Reference Range Interpretation [...] = NRBC Abs) 0.00 x10 N Creatinine [id number] 15:39:13 Test Item Value Reference Range Interpretation Comments U Creatinine (test 89.1 mg/dL N Reference ranges have code = U Creatinine) not bee n established for this assay. Protein [id number] 15:39:13 Test Item Value Reference Range Interpretation Comments U Protein (test code = U Protein) 10.4 mg/dL 1.0-14.0 Complete Blood Count without [id number] 06:39:12 Test Item Value Reference Range Interpretation [...] x10 N US OB Greater Than 14 [id number] 19:21:42Patient: MARTINE LENTZ Date/Time07/26/2020 17:29 CDTReason for Examper md order;Other (please specify)ReportOB ULTRASOUND LIMITEDLocation: [id number] HISTORY: Confirm pregnancyLMP gest.age by LMP 32 weeks 1 day YESSY by LMPSeptember 19, 2020Gestational Age by ultrasound today 32 weeks 3 [...] Reference Range Interpretation Comments HCG, Beta Quantitative 45234.1 mIU/mL N 17- 54 (test code = HCG, Beta (Non- )?41 Quantitative) (Post-menopaus al) RPR Pjapblkendw9228-22-56 12:50:28 Test Item Value Reference Range Interpretation Comments RPR Qual (test code = RPR Qual) Non-Reactive Non-Reactive Reactive Control (test code = Reactive Reactive Control) Weak Reactive Control (test Weak Reactive code = Weak Reactive Control) Non-Reactive Control (test code Non-Reactive = Non-Reactive Control) Lot # (test code = Lot #) [id number] N Expiration Dt (test code = 08-01-2021 N Expiration Dt) Lipid [id number] 07:58:23 Test Item Value Reference Range Interpretation [...] LDL/HDL Ratio=L DL Calc/HDL Chol Thyroid Stimulating [id number] 07:58:23 Test Item Value Reference Range Interpretation Comments TSH (test code = TSH) 1.312 mcIU/mL 0.550-4.780 Hemoglobin [id number] 07:54:16 Test Item Value Reference Range Interpretation Comments Hemoglobin A1c (test code 5.1 % 4.0-5.8 Di abetic >=6.5 = Hemoglobin A1c) %Prediabet es 5.7-6.4 %Normal <5.7 % [facility] - DRUG SCREEN [id number] 22:40:00 Test Item Value Reference Range Interpretation Comments BENZO U (test code = Negative Negative 5649920346) ARNOLD U (test code = Negative Negative 9528680317) AMPHET (test code = Negative Negative 3149510848) THC (test code = Negative Negative 8060351938) METHADONE (test code = Negative Negative 7967071436) Meth U (test code = Negative Negative 6775669431) OPIATES (test code = Negative Negative 9369018830) Cocaine Metabolite (test Negative Negative code = 1701182294) PROPOXY (test code = Negative Negative 7769783729) Tric U (test code = Negative Negative 5565486680) PCP (test code = Negative Negative 3088003940) OXYCOD (test code = Negative Negative 1804571104) YAMIL (test code = YAMIL) Urine Drug Cutoff Ranges Benzodiazepines: ? ? 150 ng/mLBarbiturates: ?200 ng/mLAmphetamine: ? 500 ng/mLCannabinoids: ?50 ?ng/mLMethadone: ? 200 ng/mLMethamphetamine: ? ? 500 ng/mL Opiates: ? 100 ng/mL or 2000 ng/mLCocaine: ? 150 ng/mLPropoxyphene: ?300 ng/mLTricyclics: ?300 ng/mLOxycodone: ? 100 ng/mLPCP: ? 25 ?ng/mL The results are to be used only for medical (i.e., treatment) purposes. Unconfirmed screening results must not be used for non-medical purposes (e.g., employment testing, legal testing). Lab Interpretation (test Normal code = 25081-3) [facility]PO[facility] W/O SPECIFIC [id number] 14:00:00 Test Item Value Reference Range Interpretation Comments POCT PH U (test code = 3254) N/A 5-8 POCT U LEUK EST (test code = N/A Negative - Negative 3263) POCT U NIT (test code = 3262) N/A Negative - Negative POCT U PROT (test code = 3259) Negative Negative - Negative POCT U GLU (test code = 3256) Negative Negative - Negative POCT U KETONE (test code = 3258) N/A Negative - Negative POCT U BLD (test code = 3257) N/A Negative - Negative [facility] METABOLIC PAN[facility] (09070)2020-03-07 00:39:00 Test Item Value Reference Range Interpretation Comments NA (test code = 139 mmol/L 135-145 7109021948) K (test code = 3.9 mmol/L 3.5-5 1047601798) CL (test code = 108 mmol/L 98-108 5484268956) CO2 TOTAL (test code = 22 mmol/L 23-31 L 8534363256) AGAP (test code = 2-16 0835149239) BUN (test code = 5 mg/dL 7-23 L 7868008655) GLUCOSE (test code = 103 mg/dL 70-110 2334853202) CREATININE (test code = 0.44 mg/dL 0.5-1.04 L 3720501818) TOTAL BILI (test code = <0.1 0.1-1.1 L 4124331664) CALCIUM (test code = 9.7 mg/dL 8.6-10.6 3614665081) T PROTEIN (test code = 6.2 g/dL 6.3-8.2 L 6716610317) ALBUMIN (test code = 3.6 g/dL 3.5-5 1685520200) ALK PHOS (test code = 56 U/L 34-122 3935795956) ALTv (test code = 10 U/L 5-35 1742-6) AST(SGOT) (test code = 20 U/L 13-40 3858474377) eGFR Calculation mL/min/1.73m2 (Non-) (test code = 5046427025) eGFR Calculation mL/min/1.73m2 () (test code = 6981287454) YAMIL (test code = YAMIL) Association of Glomerular Filtration Rate (GFR) and Staging of Kidney Disease* + --+ --+ ------+| GFR (mL/min/1.73 m2) ?| With Kidney Damage ?| ?Without Kidney Damage+ --------+ --------+ +| ?>90 ?| ?Stage one ?| ? Normal ?+ ---+ ---+ -------+| ?60-89 ?| ?Stage two ?| ? Decreased GFR ? + --+ --+ ------+| ?30-59 ?| ?Stage three ?| ? Stage three ? + --+ --+ ------+| ?15-29 ?| ?Stage four ? | ? Stage four ?+ ---+ ---+ -------+| ?<15 (or dialysis) ? ?| ?Stage five ? | ? Stage five ?+ ---+ ---+ -------+ *Each stage assumes the associated GFR level has been in effect for at least three months. ?Stages 1 to 5, with or without kidney disease, indicate chronic kidney disease. Notes: Determination of stages one and two (with eGFR >59mL/min/1.73 m2) requires estimation of kidney damage for at least three months as defined by structural or functional abnormalities of the kidney, manifested by either:Pathological abnormalities or Markers of kidney damage (including abnormalities in the composition of the blood or urine or abnormalities in imaging tests). Lab Interpretation Abnormal (test code = 68605-6) [facility]ACET[facility]INOPHEN2020-[facility] 00:39:00 Test Item Value Reference Range Interpretation Comments ACETAMINOP (test code = <10.0 10-30 L 1869739746) YAMIL (test code = YAMIL) Toxic: Greater than 200 ug/mL @ 4 hour post ingestion or greater than 50 ug/mL @ 12 hour post ingestion Lab Interpretation (test Abnormal code = 55041-3) [facility] HospitalSALICYLATE2020-05-06 00:39:00 Test Item Value Reference Range Interpretation Comments SALICYLATE (test code <10 mg/L = 2061956088) YAMIL (test code = YAMIL) Therapeutic Range: ? Analgesic and Antipyretic Use ? 20-100 mg/L ? ? Anti-Inflammatory Use ? 100-250 mg/L Toxic Range: ? Greater than 300 mg/L [facility]POCT [id number] 00:38:00 Test Item Value Reference Range Interpretation Comments POCT PREG (test code = 1605) positive On board controls acceptable with present C Line (test code = 3574) POCT PREG LOT # (test code = 3575) [id number] POCT PREG TEST DATE (test 06-01-2021 code = 3576) Lab Interpretation (test code = Normal 54163-7) [facility]ETHANOL2020-05-06 00:37:00 Test Item Value Reference Range Interpretation Comments ALCOHOL (test code = 88 mg/dL 6419670571) YAMIL (test code = YAMIL) <10 Gtfkwhbp37-721 Toxic>100 Depression of BOND TRADER>400 Fatalities Reported [facility]2020-[facility]-06 00:36:00 Test Item Value Reference Range Interpretation Comments MAGNESIUM (test code = 7434718883) 1.6 mg/dL 1.7-2.4 L Lab Interpretation (test code = Abnormal 90220-3) [facility]IS2020-05-06 00:15:00 Test Item Value Reference Range Interpretation Comments APPEARANCE (test code = Clear Clear 5920374009) COLOR (test code = Yellow Yellow 1210538692) PH (test code = 4.8-8.0 8843379883) SP GRAVITY (test code = 1.003-1.030 1712881891) GLU U QUAL (test code = Normal Normal 7135878838) BLOOD (test code = Negative Negative 8444877952) KETONES (test code = Negative Negative 3892603265) PROTEIN (test code = Negative Negative 2887-8) UROBILIN (test code = Normal Normal 1805603839) BILIRUBIN (test code = Negative Negative 4935721117) NITRITE (test code = Negative Negative 1244646350) LEUK MARY (test code = Negative Negative 6517654330) RBC/HPF (test code = <1 See_Comment [Autom ated message] 6803190336) The system [employer] generated this result transmitted ref erence range: 0 - 3 HP F. The reference range was not used to int erpret this result as normal/abnormal . WBC/HPF (test code = See_Comment [Autom ated message] 0956642928) The system [employer] generated this result transmitted ref erence range: 0 - 5 HP F. The reference range was not used to int erpret this result as normal/abnormal . BACTERIA (test code = Few Negative A 1331474048) MUCOUS (test code = Slight Negative LPF A 8290746739) SQ EPITH (test code = HPF 4485373801) Lab Interpretation (test Abnormal code = 53637-5) [facility] - DRUG SCREEN [id number] 23:49:00 Test Item Value Reference Range Interpretation Comments BENZO U (test code = Presumptive Positive Negative A 6380098323) ARNOLD U (test code = Negative Negative 8512676498) AMPHET (test code = Negative Negative 8473138025) THC (test code = Negative Negative 2820699117) METHADONE (test code = Negative Negative 7166237591) Meth U (test code = Negative Negative [id number]) OPIATES (test code = Negative Negative 5263189718) Cocaine Metabolite (test Negative Negative code = 1165721203) PROPOXY (test code = Negative Negative 8071784548) Tric U (test code = Negative Negative 6484223338) PCP (test code = Negative Negative 6321189109) OXYCOD (test code = Negative Negative 5317014961) YAMIL (test code = YAMIL) Urine Drug Cutoff Ranges Benzodiazepines: ? ? 150 ng/mLBarbiturates: ?200 ng/mLAmphetamine: ? 500 ng/mLCannabinoids: ?50 ?ng/mLMethadone: ? 200 ng/mLMethamphetamine: ? ? 500 ng/mL Opiates: ? 100 ng/mL or 2000 ng/mLCocaine: ? 150 ng/mLPropoxyphene: ?300 ng/mLTricyclics: ?300 ng/mLOxycodone: ? 100 ng/mLPCP: ? 25 ?ng/mL The results are to be used only for medical (i.e., treatment) purposes. Unconfirmed screening results must not be used for non-medical purposes (e.g., employment testing, legal testing). Lab Interpretation (test Abnormal code = 17163-7) [facility] WITH [id number] 23:34:00 Test Item Value Reference Range Interpretation Comments WBC (test code = See_Comment H [Automated 5190-2) message] The sy stem which generated this result transmitted reference range : 4.30 - 11.10 10*3/?L. The reference range was not used to interpret this result as normal/abnormal . RBC (test code = See_Comment L [Automated 859-8) message] The sy stem which generated this result transmitted reference range : 3.93 - 5.25 10*6/?L. The reference range was not used to interpret this result as normal/abnormal . HGB (test code = 11.3 g/dL 11.6-15 L 718-7) HCT (test code = 33.2 % 35.7-45.2 L 4544-3) MCV (test code = 89.5 fL 80.6-95.5 787-2) MCH (test code = 30.5 pg 25.9-32.8 785-6) MCHC (test code = 34.0 g/dL 31.6-35.1 786-4) RDW-SD (test code = 42.4 fL 39-49.9 31609-6) RDW-CV (test code = 13.0 % 12-15.5 788-0) PLT (test code = See_Comment [Automated 937-3) message] The sy stem which generated this result transmitted reference range : 166 - 358 10*3/ ?L. The reference r miguelina was not used to interpret this result as normal/abnormal . MPV (test code = 9.7 fL 9.5-12.9 89339-0) NRBC/100 WBC (test See_Comment [Automat ed code = 2947230769) message] The system which generated this result transmitted reference range : 0.0 - 10.0 /100 WBCs. The refer ence range was not u sed to interpret th is result as normal/abnormal . NRBC x10^3 (test code <0.01 See_Comment [Auto mated = [id number]) message] The s ystem which generated this result transmitted reference range : 10*3/?L. The reference range was not used to interpret this result as normal/abnormal . GRAN MAT (NEUT) % 72.0 % (test code = 770-8) IMM GRAN % (test code 0.40 % = 2928443656) LYMPH % (test code = 21.6 % 736-9) MONO % (test code = 3.9 % 5905-5) EOS % (test code = 1.8 % 713-8) BASO % (test code = 0.3 % 706-2) GRAN MAT x10^3(ANC) 8.22 10*3/uL 1.88-7.09 H (test code = 8034298315) IMM GRAN x10^3 (test 0.05 10*3/uL 0-0.06 code = 4847421700) LYMPH x10^3 (test code 2.47 10*3/uL 1.32-3.29 = 731-0) MONO x10^3 (test code 0.45 10*3/uL 0.33-0.92 = 742-7) EOS x10^3 (test code = 0.20 10*3/uL 0.03-0.39 711-2) BASO x10^3 (test code 0.03 10*3/uL 0.01-0.07 = 704-7) Lab Interpretation Abnormal (test code = 27528-4) [id number] 14:[facility]00 Test Item Value Reference Range Interpretation Comments RPR (test code = RPR) Non-Reactive Non-Reactive N Thyroid Stimulating Hormone (TSH)2017-12-30 07:29:00 Test Item Value Reference Range Interpretation Comments TSH (test code = TSH) 2.42 mIU/mL 0.270-4.200 N BHCG, Serum, [id number] 07:29:00 Test Item Value Reference Range Interpretation Comments B hCG, Quant (test <1 mIU/mL Weeks of Gestation code = BHCGQT) Ranges (mIU/m L)3 weeks 5. 40 - 72.04 weeks 10.2 - 7085 w eeks 217 - 80015 weeks 152 - 533828 weeks 4059 - 153 7678 weeks 56350 - 6014203 weeks 591 09 - 83814539 weeks 74605 - 1704 0912 weeks 12682 - 80208312 week s 94640 - 93 09201 weeks 35460 - 2162974 weeks 8904 - 5533 217 weeks 82 40 - 4055797 weeks 9649 - 77923 Lipid [id number] 07:19:00 Test Item Value Reference Range Interpretation Comments Cholesterol (test 132 mg/dL 0-200 N code = CHOL) Triglycerides (test 122 mg/dL 9-200 N code = TRIG) HDL (test code = 21 mg/dL 50-60 L HDL) Chol/HDL (test code 6.3 Ratio 0.0-4.4 H = CHOLPHDL) LDL, Calculated 87 0-130 N (NOTE)RISK O F HEART (test code = LDLC) DISEASEPu blished by [place] Heart AssociationAnal yte Optim al Boderline Increased RiskC HOL <200 200-239 >240TRI G <150 150-199 >200HDL Male: >60 <40HDL Female: >60 <50 LDL < 100 130-15 9 >160 LDL NEAR OPTIMAL IS 100- 129 VLDL (test code = 24 mg/dL 5-40 N VLDL) LDL/HDL (test code = 4 LDLPHDL) [id number] 04:24:00 Test Item Value Reference Range Interpretation Comments Amphetamine (test code Negative Negative N For d iagnostic purposes = AMPH) only, positive results should always b e assessedin conjunctionwith the patient's medic al history,clinica l examination and otherfindings.T o fulfill legal requirements, a more specific altern ate chemical method must be used inorder to obtain a Confirmed olga lidia lytical result. GC/MS i s the preferred [...] code = THC) POSITIVE Negative A Urinalysis [id number] 03:47:00 Test Item Value Reference Range Interpretation Comments Color (test code = [place] Yellow,Straw,Pl A The va lue [place] COLOR) yellow [facility] 12/30/2017 03:4 2 waschanged to P ink by JENA on 12/30/2017 03:4 7 Clarity (test code = Sl Cloudy Clear A The tomi ue Clear CLAR) originally released by JENA on 12/30/2017 03:4 2 waschanged to S l Cloudy by BRIANA PARHAM on 12/30/2017 03:47 Specific [place] 1.006 1.001-1.035 N (test code = SPGR) [...] code Few /HPF = BACT) Comprehensive Metabolic [id number] 01:00:00 Test Item Value Reference Range Interpretation [...] validated by th e MDRD study and mendy elizondo be interpretedwith caution.eGFR Re sult Interpretation: eGFR > or = 60 is in t he Normal RangeeGF R < 60 may mean kidney diseaseeGFR < 1 5 may mean kidney failureRange s recommended by the National Kidney Foundation,http ://nkd ep.nih.gov Alcohol/Ethanol, [id number] 01:00:00 Test Item Value Reference Range Interpretation Comments Alcohol, Ethyl <0.01 g/dL 0.00-0.01 N Intoxicated 0.080 (test code = ETOH) g/dL or m ore CBC with [id number] 00:45:00 Test Item Value Reference Range Interpretation [...] code = ALYMPH) 3.8 K/cumm 0.5-4.6 N [place] Abs (test code = AMONO) 0.5 K/cumm 0.0-1.2 N Eos Abs (test code = AEOS) 1.24 K/cumm 0.00-0.74 H Baso Abs (test code = ABASO) 0.1 K/cumm 0.00-0.21 N
[2021-09-16] MEDS ORDERED: ONDANSETRON 4 MG (ODT) TAB ONE (10:41)
[2021-09-16] MEDS ORDERED: HYDROCODONE/APAP 5/325 MG TAB ONE (10:42)
[2021-09-16 10:49] LABS: Urine Blood Trace-intact (Negative); Urine Glucose Negative (Negative); Urine Protein Negative (Negative)
--- NOTE | 2021-09-16 11:43 | RAD REPORT ---
EXAM DESCRIPTION: [facility]Stone Protocol - 09/16/2021 11:29 am CLINICAL HISTORY: left flank pain COMPARISON: Abdomen Pelvis W Contrast dated 03/16/2021 TECHNIQUE: CT of the abdomen and pelvis was performed. All CT scans are performed using dose optimization technique as appropriate and may include automated exposure control or mA/KV adjustment according to patient size. FINDINGS: Lower chest: Ectasia of the descending thoracic aorta. Liver: No acute abnormality or suspicious lesions. Biliary: No biliary ductal dilatation. Stomach: No significant focal abnormality. Duodenum: No significant focal abnormality. Pancreas: No significant abnormality. Spleen: No significant abnormality. Adrenal: No suspicious lesions. Kidney/ureter: No hydronephrosis. 5 mm stone in the lower pole right kidney. Retroperitoneum: No retroperitoneal adenopathy. Vascular: No aneurysm. Bowel: No significant focal abnormality. Normal appendix. Peritoneum: No ascites or free air. Bladder: Grossly unremarkable. Reproductive: No adnexal masses. Bones: No acute fracture. Other: n/a IMPRESSION: No acute intra-abdominal or pelvic finding. Nonobstructive right nephrolithiasis. Normal appendix.
--- NOTE | 2021-09-16 11:52 | ER ---
Nurse's Notes [facility] Name: Miriam Fried Age: 41 yrs Sex: Female : 1980 Arrival Date: 09/16/2021 Time: 10:05 Bed 11 Private MD: Diagnosis: UTI/ Urinary tract infection, site not specified Presentation: 09/16 10:19 Chief complaint: Patient states: i think i have a UTI. it lieberman when i pee. for about a tw2 week. i also have a stabbing LEFT back pain. Coronavirus screen: At this time, the client does not indicate any symptoms associated with coronavirus-19. Ebola Screen: Patient denies travel to an Ebola-affected area in the 21 days before illness onset. Initial Sepsis Screen: Does the patient meet any 2 criteria? HR > 90 bpm. Does the patient have a suspected source of infection? No. Patient's initial sepsis screen is negative. Note pt drinking Red Bull in triage. Onset of symptoms was September 16, 2021. 10:19 Method Of Arrival: Ambulatory tw2 10:24 Risk Assessment: Do you want to hurt yourself or someone else? Patient reports no tw2 desire to harm self or others. Note pt given urine specimen cup and sent to restroom at this time. 10:24 Acuity: REGINA 3 tw2 Triage Assessment: 10:19 General: Appears in no apparent distress. Behavior is calm, cooperative, appropriate tw2 for age. Pain: Complains of pain in left low back and left mid back. GI: Reports nausea. : Reports burning with urination. 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 - Social history:: Smoking status: Patient reports the use of cigarette tobacco products, smokes one-half pack cigarettes per day. Screenin:28 Abuse screen: Denies threats or abuse. Nutritional screening: No deficits noted. tw2 Tuberculosis screening: No symptoms or risk factors identified. Fall Risk None identified. Assessment: 10:37 General: Appears uncomfortable, Behavior is cooperative. Pain: Complains of pain in ap3 left mid back and left low back. Neuro: Level of Consciousness is awake, alert, obeys commands, Oriented to person, place, time, situation, Appropriate for age Speech is normal. Cardiovascular: Patient's skin is warm and dry. Respiratory: Airway is patent Respiratory effort is even, unlabored, Respiratory pattern is regular, symmetrical. : Reports pain in lower back with urination. Vital Signs: 10:19 BP 105 / 57; Pulse 112; Resp 18; Temp 97.6(TE); Pulse Ox 95% on R/A; tw2 ED Course: 10:05 Patient arrived in ED. mr 10:17 Troy Rodriguez PA is PHCP. [facility] 10:17 Zay Graves MD is Attending Physician. jm 10:25 Triage completed. tw2 10:25 Arm band placed on. tw2 10:37 Joelle Durán, MARY is Primary Nurse. ap3 10:38 Patient has correct armband on for positive identification. Call light in reach. Pulse ap3 ox on. NIBP on. Door closed. Noise minimized. 10:57 Urine collected: clean catch specimen, david colored. ap3 11:[address] via wheelchair. ap3 11:28 [facility] Stone Protocol In Process Unspecified. EDMS 11:35 Patient moved back from [place]. ap3 12:12 No provider procedures requiring assistance completed. Patient did not have IV access ap3 during this emergency room visit. Administered Medications: 10:50 Drug: [place] (HYDROcodone-acetaminophen) 5 mg-325 mg 1 tabs {Note: RASS-0.} Route: PO; ap3 12:13 Follow up: Response: No adverse reaction; Pain is decreased ap3 10:50 Drug: Zofran (Ondansetron) 4 mg Route: PO; ap3 12:14 Follow up: Response: No adverse reaction ap3 Outcome: 11:51 Discharge ordered by . jm 12:12 Discharged to home ambulatory. ap3 12:12 Condition: good 12:12 Discharge instructions given to patient, Instructed on discharge instructions, follow up and referral plans. medication usage, Demonstrated understanding of instructions, follow-up care, medications, Prescriptions given X 3. 12:14 Patient left the ED. ap3 Signatures: Dispatcher [employer] EDMS Troy Rodriguez PA PA jmm Ra, Yee mr Josi Posada RN RN tw2 Joelle Durán RN RN ap3 Corrections: (The following items were deleted from the chart) 10:27 10:26 PMHx: Anxiety; tw2 tw2
--- NOTE | 2021-09-16 11:52 | EDPHYS ---
Physician Documentation [facility] Name: Miriam Fried Age: 41 yrs Sex: Female : 1980 Arrival Date: 09/16/2021 Time: 10:05 Bed 11 Private MD: ED Physician Zay Graves HPI: 09/16 10:37 This 41 yrs old Female presents to ER via Ambulatory with complaints of jmm Urinary Problem. 10:37 The patient presents with urinary symptoms, dysuria. Onset: The symptoms/episode jmm began/occurred gradually, 1 week(s) ago. Modifying factors: The symptoms are alleviated by nothing, the symptoms are aggravated by nothing. Associated signs and symptoms: Pertinent positives: dysuria, nausea. This is a 41 year old female with a history of anxiey, add/adhd that presents to the ED with complaints of left flank, pain, dysuria, nausea. Patient states she has had kidney stones in the past. Denies vomiting. . 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 - Social history:: Smoking status: Patient reports the use of cigarette tobacco products, smokes one-half pack cigarettes per day. ROS: 10:37 Constitutional: Negative for fever, chills, and weight loss, Cardiovascular: Negative jmm for chest pain, palpitations, and edema, Respiratory: Negative for shortness of breath, cough, wheezing, and pleuritic chest pain. 10:37 Abdomen/GI: Positive for nausea. 10:37 Back: Positive for flank pain. 10:37 : Positive for urinary symptoms. 10:37 All other systems are negative. Exam: 10:37 Constitutional: This is a well developed, well nourished patient who is awake, alert, jmm and in no acute distress. Head/Face: atraumatic. Eyes: EOMI, no conjunctival erythema appreciated ENT: Moist Mucus Membranes Neck: Trachea midline, Supple Chest/axilla: Normal chest wall appearance and motion. Cardiovascular: Regular rate and rhythm. No edema appreciated Respiratory: Normal respirations, no respiratory distress appreciated Abdomen/GI: Non distended, soft Back: Normal ROM Skin: General appearance color normal MS/ Extremity: Moves all extremities, no obvious deformities appreciated, no edema noted to the lower extremities Neuro: Awake and alert, normal gait Psych: Behavior is normal, Mood is normal, Patient is cooperative and pleasant Vital Signs: 10:19 BP 105 / 57; Pulse 112; Resp 18; Temp 97.6(TE); Pulse Ox 95% on R/A; tw2 MDM: 10:37 Patient medically screened. [facility] 11:47 Data reviewed: vital signs, nurses notes. Counseling: I had a detailed discussion with [facility] the patient and/or guardian regarding: the historical points, exam findings, and any diagnostic results supporting the discharge/admit diagnosis, lab results, radiology results, the need for outpatient follow up, to return to the emergency department if symptoms worsen or persist or if there are any questions or concerns that arise at home. ED course: Patient is alert and nontoxic in appearance in the ED. Pain has decreased. Patient will be prescribed oral antibiotics and antiemetics for further treatment. Patient otherwise gastric return precautions. Patient understood agrees plan of care.. 09/16 10:38 Order name: Urine Culture [facility] 09/16 10:49 Order name: Urine Dipstick-Ancillary [facility] 09/16 10:39 Order name: CT Stone Protocol; Complete Time: 11:47 [facility] 09/16 10:49 Order name: Urine --Ancillary (enter results); Complete Time: 10:57 bd 09/16 10:38 Order name: Urine Dipstick-Ancillary (obtain specimen); Complete Time: 10:51 [facility] 09/16 10:38 Order name: Urine Test (obtain specimen); Complete Time: 10:51 [facility] Administered Medications: 10:50 Drug: [place] (HYDROcodone-acetaminophen) 5 mg-325 mg 1 tabs {Note: RASS-0.} Route: PO; ap3 12:13 Follow up: Response: No adverse reaction; Pain is decreased ap3 10:50 Drug: Zofran (Ondansetron) 4 mg Route: PO; ap3 12:14 Follow up: Response: No adverse reaction ap3 Disposition: 15:23 Co-signature as Attending Physician, Zay Graves MD I agree with the assessment and rn plan of care. Attestation: The patient's history, exam findings, diagnostics, and a summary of any interventions or procedures was reviewed in detail with Troy VANG. Disposition Summary: 09/16/21 11:51 Discharge Ordered Location: Home [facility] Condition: Stable [facility] Diagnosis - UTI/ Urinary tract infection, site not specified [facility] Followup: [facility] - With: Private Physician - When: 2 - 3 days - Reason: Recheck today's complaints, Continuance of care, Re-evaluation by your physician Discharge Instructions: - Discharge Summary Sheet [facility] - Urinary Tract Infection, Adult [facility] Forms: - Medication Reconciliation Form [facility] - Thank You Letter [facility] - Antibiotic Education [facility] - Prescription Opioid Use [facility] Prescriptions: - Augmentin 875-125 mg Oral Tablet - take 1 tablet by ORAL route every 12 hours for 10 days; 20 tablet; Refills: 0, [facility] Product Selection Permitted - ondansetron 4 mg Oral tablet,disintegrating - take 1 tablet by ORAL route every 8 hours for 2 days; 20 tablet; Refills: 0, [facility] Product Selection Permitted - Pyridium 200 mg Oral Tablet - take 1 tablet by ORAL route every 8 hours for 3 days; 9 tablet; Refills: 0, [facility] Product Selection Permitted Signatures: Dispatcher [employer] EDTroy Singh PA PA [facility] Zay Graves MD MD rn Wise, Tara, RN RN tw2 Joelle Durán RN RN ap3 Corrections: (The following items were deleted from the chart) 10:27 10:26 PMHx: Anxiety; tw2 tw2
[2021-09-16 12:27] VITALS: BP 105/57; TEMP 97.6; O2SAT 95
== END 2021-09-16 12:14 | disposition home or self-care (01) ==
LOC: ER 10:02
DX: N39.0 Urinary tract infection, site not specified (principal); F17.210 Nicotine dependence, cigarettes, uncomplicated; F32.A Depression, unspecified; Z88.1 Allergy status to other antibiotic agents; Z88.5 Allergy status to narcotic agent
CPT/HCPCS: 74176; 76377; 81003; 81025; 87077; 87086; 87088; 87186; 99284

== ENCOUNTER 2021-10-09 13:36 | Emergency (ER) | payer OTHER ==
--- OUTSIDE RECORDS SUMMARY | 2021-10-09 13:42 | XMS REPORT | Continuity of Care Document ---
:1980 Author Organization [facility] t Address [address] [place] [address] Care Team Providers Name Role Phone UNKNOWN, REFFERING Primary Care Physician Unavailable Sherman Collazo Attending Clinician Unavailable Rj Diez Attending Clinician Unavailable Daniel Diez Attending Clinician Unavailable ONDINA REID Attending Clinician Unavailable Ondina Reid MD Attending Clinician Macie PAGAN Attending Clinician Unavailable Ultrasound Attending Clinician Unavailable Robb Campos MD Attending Clinician Doctor Unassigned, Name Attending Clinician Unavailable Fellow, [facility] Attending Clinician Unavailable Hussein SMILEY, Sneha Attending Clinician Sarah Corral MD Attending Clinician Rigo BROUSSARD Attending Clinician Jose Rafael Emanuel Attending Clinician JOSE RAFAEL CHAMBERS Attending Clinician Unavailable [facility], [facility] Attending Clinician Unavailable Dipika Mark MD Attending Clinician Jenn Sanz DO Attending Clinician NORMA SIMONS M.D. Attending Clinician Unavailable ONDINA REID Admitting Clinician Unavailable Zay Admitting Clinician Unavailable Daniel Diez Admitting Clinician Unavailable Ondina Reid MD Admitting Clinician NORMA SIMONS M.D., M Admitting Clinician Unavailable Payers Payer Name Policy Type Policy Number Effective Date Expiration Date Rosales may [facility] [id number] 2020 CHOICE MEDICAID 00:00:00 [place]ID OF [place] [id number] 2020 00:00:00 Problems Condition Condition Condition Status Onset Resolution Last Treating Co mments Source Name Details Category Date Date Treatment Clinician Date 39 weeks 39 weeks Disease Active 2019- Unive rs gestation gestation 1-11 ity of of of 00:00: [place] 00 [facility] Branch QT QT Disease Active 2019- Univers prolongati prolongati 1-11 it y of on on 00:00: [place] [address] Medical Branch Obesity Obesity Disease Active 2020- Univers (BMI (BMI 1-09 ity of 30-39.9) 30-39.9) 00:00: [place] [address] Medical Branch Insufficie Insufficie Disease Active 2020- U nivers nt nt 1-09 ity of 00:00: [place] care in care in 00 Medical third third Branch trimester trimester 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 of 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, disorder, 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 features Supervisio Supervisio Disease Active 2020-0 U nivers n of high n of high 5-14 ity of risk risk 00:00: [place] 00 [facility] in third in third Branch trimester trimester 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 U nivers cardiac cardiac 5-14 ity of arrest arrest 00:00: [place] [address] Medical Branch Anxiety Anxiety Disease Active 2020-0 Univers disorder, disorder, 5-14 ity of unspecifie unspecifie 00:[place] d type d type 00 Medical Branch 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 U nivers drug abuse drug abuse 5-14 it y of 00:00: [place] [address] Medical Branch 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 U 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[place]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 [place] Previous Previous Disease Active 2020-0 Unive rs 5-14 ity of section section 00:00: [place] 00 [facility] Medication Medication Disease Active U nivers exposure exposure 5-14 ity of during during 00:00: [place] first first 00 Medical trimester trimester Bran ch of of Smoking Smoking Disease Active Univers 5-14 ity of 00:00: [place] 00 Medical [place] Abdominal Abdominal Disease Active Uni vers pain, pain, 4-27 ity of epigastric epigastric 00[place]00[place] Allergies, Adverse Reactions, Alerts Allergy Allergy Status Severity Reaction(s) Onset Inactive Treating Comm ents Source Name Type Date Date Clinician morphine DA Active [facility] 2[facility] [place] morphine DA Active SV "HEART [facility] STOPPED" 12-22 [facility] [place] MORPHINE DRUG Active Unknown-Cmnt 2010-11 Un [facility] INGREDI 0-05 ity of 00:00: [place] 00 [facility] Morphine Propensi Active Unknown - 2010-11 Per Uni vers ty to See comments 0-05 patient ity of adverse 00:00: she went [place] reaction 00 into Medical s cardiac Branch arrest after receiving morphine at the hospital March 2011 Social History Social Habit Start Date Stop Date Quantity Comments Source ASSERTION 2019-12-22 University of 00:00:00 [facility] History of tobacco Cigarette Smoker University of use [facility] Exposure to Not sure University of SARS-CoV-2 (event) [facility] Tobacco use and 2020-03-15 2020-03-15 Never used Universit y of exposure 00:00:00 00:00:00 [facility] Cigarettes smoked 2020-03-15 2020-03-15 Univers ity of current (pack per 00:00:00 00:00:00 [place] ) - Reported Branch Alcohol intake 2020-03-15 2020-03-15 Current drinker Unive rsity of 00:00:00 00:00:00 of alcohol [facility] (finding) [place] Sex Ass[birth year] Universit y of 00:00:00 00:00:00 [facility] Smoking Status Start Date Stop Date Source Current every day smoker 2020-03-15 00:00:00 Uni versity of [facility] Medications Ordered Filled Start Stop Current Ordering Indication Dosage Frequency Signature Comments Components Source Medication Medication Date Date Medication? Clinician (SIG) Name Name risperiDONE 2019-11 Yes 2mg Take 2 mg U nivers 2 mg tablet 1-12 by mouth ity of 01:27: daily. [address] SERTraline 2019-11 Yes 50mg Take 50 mg U nivers (ZOLOFT) 50 1-12 by mouth ity of mg tablet 01:27: daily. [address] D5W-LR IV 2019-11 Yes 1000mL at 125 Univ ers infusion 1-12 mL/hr, IV ity of 1,000 mL 00:45: Infusion, [place] [address] CONTINUOUS Medical , Starting Branch 09/12/20 at 1845, Until Discontinu ed, Routine risperiDONE 2019-11 Yes 2mg Take 2 mg U nivers 2 mg tablet 1-10 by mouth ity of 01:35: daily. [address] SERTraline 2019-11 Yes 50mg Take 50 mg U nivers (ZOLOFT) 50 1-10 by mouth ity of mg tablet 01:35: daily. [address] risperiDONE 2019-11 Yes 2mg Take 2 mg U nivers 2 mg tablet 1-10 by mouth ity of 01:35: daily. [address] SERTraline 2019-11 Yes 50mg Take 50 mg U nivers (ZOLOFT) 50 1-10 by mouth ity of mg tablet 01:35: daily. [address] risperiDONE 2019-11 Yes 2mg Take 2 mg U nivers 2 mg tablet 1-10 by mouth ity of 01:35: daily. [address] SERTraline 2019-11 Yes 50mg Take 50 mg U nivers (ZOLOFT) 50 1-10 by mouth ity of mg tablet 01:35: daily. [address] risperiDONE 2019-11 Yes 2mg Take 2 mg U nivers 2 mg tablet 1-10 by mouth ity of 01:35: daily. [address] SERTraline 2019-11 Yes 50mg Take 50 mg U nivers (ZOLOFT) 50 1-10 by mouth ity of mg tablet 01:35: daily. [address] risperiDONE 2019-11 Yes 2mg Take 2 mg U nivers 2 mg tablet 1-10 by mouth ity of 01:35: daily. [address] SERTraline 2019-11 Yes 50mg Take 50 mg U nivers (ZOLOFT) 50 1-10 by mouth ity of mg tablet 01:35: daily. [address] risperiDONE 2019- Yes 2mg Take 2 mg U nivers 2 mg tablet 1-10 by mouth ity of 01:35: daily. [address] SERTraline 2019-11 Yes 50mg Take 50 mg U nivers (ZOLOFT) 50 1-10 by mouth ity of mg tablet 01:35: daily. [address] risperiDONE 2019-11 Yes 2mg Take 2 mg U nivers 2 mg tablet 1-10 by mouth ity of 01:35: daily. [address] SERTraline 2019-11 Yes 50mg Take 50 mg U nivers (ZOLOFT) 50 1-10 by mouth ity of mg tablet 01:35: daily. [address] risperiDONE 2019-11 Yes 2mg Take 2 mg U nivers 2 mg tablet 1-10 by mouth ity of 01:35: daily. [address] SERTraline 2019-11 Yes 50mg Take 50 mg U nivers (ZOLOFT) 50 1-10 by mouth ity of mg tablet 01:35: daily. [address] risperiDONE 2019-11 Yes 2mg Take 2 mg U nivers 2 mg tablet 1-10 by mouth ity of 01:35: daily. [address] SERTraline 2019-11 Yes 50mg Take 50 mg U nivers (ZOLOFT) 50 1-10 by mouth ity of mg tablet 01:35: daily. [address] D5W-LR IV 2019-11 Yes 1000mL at 125 Univ ers infusion 1-10 mL/hr, IV ity of 1,000 mL 00:45: [place] CONTINUOUS Medical , Starting Branch 09/10/20 at 1845, Until Discontinu ed, Routine PNV 2019-0 Yes [id number] Take 1 Univers 102-iron-fo 5-14 TAB-CAP/M2 it y of late 00:00: by mouth [place] [facility] daily. Medical (VITAFOL Branch FE+, WITH DOCUSATE,) 90 mg iron-1 mg -50 mg-200 mg Cap PNV 2020-0 Yes [id number] Take 1 Univers 102-iron-fo 5-14 TAB-CAP/M2 it y of late 00:00: by mouth [place] -dss-dha 00 daily. Medical (VITAFOL Branch FE+, WITH DOCUSATE,) 90 mg iron-1 mg -50 mg-200 mg Cap PNV 2020-0 Yes [id number] Take 1 Univers 102-iron-fo 5-14 TAB-CAP/M2 it y of late 00:00: by mouth [place] 1-dss-dha 00 daily. Medical (VITAFOL Branch FE+, WITH DOCUSATE,) 90 mg iron-1 mg -50 mg-200 mg Cap PNV 2020-0 Yes [id number] Take 1 Univers 102-iron-fo 5-14 TAB-CAP/M2 it y of late 00:00: by mouth [place] 1-dss-dha 00 daily. Medical (VITAFOL Branch FE+, WITH DOCUSATE,) 90 mg iron-1 mg -50 mg-200 mg Cap PNV 2020-0 Yes [id number] Take 1 Univers 102-iron-fo 5-14 TAB-CAP/M2 it y of late 00:00: by mouth [place] 1-dss-dha 00 daily. Medical (VITAFOL Branch FE+, WITH DOCUSATE,) 90 mg iron-1 mg -50 mg-200 mg Cap PNV 2020-0 Yes [id number] Take 1 Univers 102-iron-fo 5-14 TAB-CAP/M2 it y of late 00:00: by mouth [place] 1-dss-dha 00 daily. Medical (VITAFOL Branch FE+, WITH DOCUSATE,) 90 mg iron-1 mg -50 mg-200 mg Cap PNV 2020-0 Yes [id number] Take 1 Univers 102-iron-fo 5-14 TAB-CAP/M2 it y of late 00:00: by mouth [place] 1-dss-dha 00 daily. Medical (VITAFOL Branch FE+, WITH DOCUSATE,) 90 mg iron-1 mg -50 mg-200 mg Cap PNV 2020-0 Yes [id number] Take 1 Univers 102-iron-fo 5-14 TAB-CAP/M2 it y of late 00:00: by mouth [place] 1-dss-dha 00 daily. Medical (VITAFOL Branch FE+, WITH DOCUSATE,) 90 mg iron-1 mg -50 mg-200 mg Cap PNV 2020-0 Yes [id number] Take 1 Univers 102-iron-fo 5-14 TAB-CAP/M2 it y of late 00:00: by mouth [place] 1-dss-dha 00 daily. Medical (VITAFOL Branch FE+, WITH DOCUSATE,) 90 mg iron-1 mg -50 mg-200 mg Cap PNV 2020-0 Yes [id number] Take 1 Univers 102-iron-fo 5-14 TAB-CAP/M2 it y of late 00:00: by mouth [address] 00 daily. Medical (VITAFOL Branch FE+, WITH DOCUSATE,) 90 mg iron-1 mg -50 mg-200 mg Cap PNV 2020-0 Yes [id number] Take 1 Univers 102-iron-fo 5-14 TAB-CAP/M2 it y of late 00:00: by mouth [address] 00 daily. Medical (VITAFOL Branch FE+, WITH DOCUSATE,) 90 mg iron-1 mg -50 mg-200 mg Cap PNV 2020-0 Yes [id number] Take 1 Univers 102-iron-fo 5-14 TAB-CAP/M2 it y of late 00:00: by mouth [address] 00 daily. Medical (VITAFOL Branch FE+, WITH DOCUSATE,) 90 mg iron-1 mg -50 mg-200 mg Cap PNV 2020-0 Yes [id number] Take 1 Univers 102-iron-fo 5-14 TAB-CAP/M2 it y of late 00:00: by mouth [address] 00 daily. Medical (VITAFOL Branch FE+, WITH DOCUSATE,) 90 mg iron-1 mg -50 mg-200 mg Cap PNV 2020-0 Yes [id number] Take 1 Univers 102-iron-fo 5-14 TAB-CAP/M2 it y of late 00:00: by mouth [address] 00 daily. Medical (VITAFOL Branch FE+, WITH DOCUSATE,) 90 mg iron-1 mg -50 mg-200 mg Cap PNV 2020-0 Yes [id number] Take 1 Univers 102-iron-fo 5-14 TAB-CAP/M2 it y of late 00:00: by mouth [address] 00 daily. Medical (VITAFOL Branch FE+, WITH DOCUSATE,) 90 mg iron-1 mg -50 mg-200 mg Cap PNV 2020-0 Yes [id number] Take 1 Univers 102-iron-fo 5-14 TAB-CAP/M2 it y of late 00:00: by mouth [address] daily. Medical (VITAFOL Branch FE+, WITH DOCUSATE,) 90 mg iron-1 mg -50 mg-200 mg Cap PNV 2020-0 Yes [id number] Take 1 Univers 102-iron-fo 5-14 TAB-CAP/M2 it y of late 00:00: by mouth [place] 1-dss-dha 00 daily. Medical (VITAFOL Branch FE+, WITH DOCUSATE,) 90 mg iron-1 mg -50 mg-200 mg Cap PNV 2020-0 Yes [id number] Take 1 Univers 102-iron-fo 5-14 TAB-CAP/M2 it y of late 00:00: by mouth [place] 1-dss-dha daily. Medical (VITAFOL Branch FE+, WITH DOCUSATE,) 90 mg iron-1 mg -50 mg-200 mg Cap PNV 2020-0 Yes [id number] Take 1 Univers 102-iron-fo 5-14 TAB-CAP/M2 it y of late 00:00: by mouth [place] 1-dss-dha daily. Medical (VITAFOL Branch FE+, WITH DOCUSATE,) 90 mg iron-1 mg -50 mg-200 mg Cap PNV 2020-0 Yes [id number] Take 1 Univers 102-iron-fo 5-14 TAB-CAP/M2 it y of late 00:00: by mouth [place] 1-dss-[facility] daily. Medical (VITAFOL Branch FE+, WITH DOCUSATE,) 90 mg iron-1 mg -50 mg-200 mg Cap LORazepam 2019- No 2mg 2 mg, Univer s (ATIVAN) 06-23 Oral, ity of tablet 2 mg 02:00: 00:55 ONCE, 1 [place] :[place] dose, Wed Medical 06/22/19 at Branch 2100, CHRISTY gabapentin 2019- No [id number] 300mg Take 1 Univers 300 mg 06-22 capsule by ity of capsule 00:00: 04:59 mouth 2 [place] 00 :00 (two) Medical times Branch daily for 30 days. KCL (K-DUR) 2010-11 Yes 40meq Take 2 Uni vers 20 mEq 0-28 Tabs by ity of tablet 00:00: mouth [place] daily. Medical Branch metoprolol 2010-11 Yes 12.5mg [...] mg 00 (three) Medic al tablet times [place] daily. magnesium 2010-11 2020- No 800mg Take 2 Univ ers oxide 0-05 05-14 Tabs by ity of (MAG-OX 00:00: 00:00 mouth 3 [place] 400) 400 mg 00 :00 (three) Medic al tablet times [place] daily. FLUoxetine Yes 20mg Take 1 Cap U nivers (PROZAC) 20 8-05 by mouth ity of mg capsule 00:00: daily. [address] clonazePAM Yes .5mg Take 1 Tab U nivers (KLONOPIN) 8-05 by mouth 3 ity of 0.5 mg 00:00: (three) [place] tablet 00 times Medical daily. Branch FLUoxetine Yes 20mg Take 1 Cap U nivers (PROZAC) 20 8-05 by mouth ity of mg capsule 00:00: daily. [address] clonazePAM Yes .5mg Take 1 Tab U nivers (KLONOPIN) 8-05 by mouth 3 ity of 0.5 mg 00:00: (three) [place] tablet 00 times Medical daily. Branch FLUoxetine Yes 20mg Take 1 Cap U nivers (PROZAC) 20 8-05 by mouth ity of mg capsule 00:00: daily. [address] clonazePAM Yes .5mg Take 1 Tab U nivers (KLONOPIN) 8-05 by mouth 3 ity of 0.5 mg 00:00: (three) [place] tablet 00 times Medical daily. Branch FLUoxetine Yes 20mg Take 1 Cap U nivers (PROZAC) 20 8-05 by mouth ity of mg capsule 00:00: daily. [address] FLUoxetine Yes 20mg Take 1 Cap U nivers (PROZAC) 20 8-05 by mouth ity of mg capsule 00:00: daily. [address] FLUoxetine Yes 20mg Take 1 Cap U nivers (PROZAC) 20 8-05 by mouth ity of mg capsule 00:00: daily. [address] FLUoxetine Yes 20mg Take 1 Cap U nivers (PROZAC) 20 8-05 by mouth ity of mg capsule 00:00: daily. [place] [facility] Branch FLUoxetine Yes 20mg Take 1 Cap U nivers (PROZAC) 20 8-05 by mouth ity of mg capsule 00:00: daily. [place] Medical Branch FLUoxetine Yes 20mg Take 1 Cap U nivers (PROZAC) 20 8-05 by mouth ity of mg capsule 00:00: daily. [place] [facility] Branch FLUoxetine Yes 20mg Take 1 Cap U nivers (PROZAC) 20 8-05 by mouth ity of mg capsule 00:00: daily. [place] Medical Branch clonazePAM Yes .5mg Take 1 Tab U nivers (KLONOPIN) 8-05 by mouth 3 ity of 0.5 mg 00:00: (three) [place] tablet 00 times Medical daily. Branch FLUoxetine Yes 20mg Take 1 Cap U nivers (PROZAC) 20 8-05 by mouth ity of mg capsule 00:00: daily. [address] Branch clonazePAM Yes .5mg Take 1 Tab U nivers (KLONOPIN) 8-05 by mouth 3 ity of 0.5 mg 00:00: (three) [place] tablet 00 times Medical daily. Branch FLUoxetine Yes 20mg Take 1 Cap U nivers (PROZAC) 20 8-05 by mouth ity of mg capsule 00:00: daily. [place] Medical Branch clonazePAM Yes .5mg Take 1 Tab U nivers (KLONOPIN) 8-05 by mouth 3 ity of 0.5 mg 00:00: (three) [place] tablet 00 times Medical daily. Branch FLUoxetine Yes 20mg Take 1 Cap U nivers (PROZAC) 20 8-05 by mouth ity of mg capsule 00:00: daily. [place] Medical Branch clonazePAM Yes .5mg Take 1 Tab U nivers (KLONOPIN) 8-05 by mouth 3 ity of 0.5 mg 00:00: (three) [place] tablet 00 times Medical daily. Branch FLUoxetine 2020- No 20mg Take 1 Cap Univers (PROZAC) 20 8-05 11-09 by mouth ity of mg capsule 00:00: 00:00 [place]. [place] Branch FLUoxetine 2020- No 20mg Take [...] [place] 00 : [place] Branch clonazePAM 2020- No .5mg Take 1 Tab Univers (KLONOPIN) 06-06 by mouth 3 it y of 0.5 mg 00:00: 00:00 (three) [place] tablet 00 :00 times Medical daily. Branch calcium Yes 500mg Take 1 Tab Uni vers carbonate 5-13 by mouth 3 ity of (OSCAL-500) 00:00: (three) [place] 500 mg 00 times Medical (1,250 mg) daily with [facility] tablet meals. ferrous Yes 325mg Take 1 [...] times Medical (1,250 mg) daily with Bra [facility] tablet meals. ferrous Yes 325mg Take 1 [...] times Medical (1,250 mg) daily with Bra [facility] tablet meals. ferrous Yes 325mg Take 1 [...] mouth 3 ity of (OSCAL-500) 00:00: (three) [place] 500 mg 00 times Medical (1,250 mg) daily with Bra [facility] tablet meals. ferrous Yes 325mg Take 1 [...] by mouth ity of w/FA 00:00: daily. [place] ( 00 Medical RX OR Branch GENERIC EQUIVALENT) tablet calcium 2020- No 500mg Take 1 Tab [place] carbonate 5-13 05-14 by mouth 3 ity of (OSCAL-500) 00:00: 00:00 (three) [place] 500 mg 00 :00 times Medical (1,250 mg) daily with Bra nch tablet meals. ferrous 2020- No 325mg Take 1 Tab Un [place] sulfate 325 5-13 05-14 by mouth 3 i ty of mg (65 mg 00:00: 00:00 (three) [place] 00 :00 times Medical tablet daily with Branch meals. nicotine 2019- No 1{patch Apply 1 Un [place] (NICODERM) 03-1414 } Patch to ity of 21 mg/24 hr 00:00: 00:00 area(s) [place] patch 00 :00 every 24 Medical (twenty-fo Branch ur) hours. thiamine 2019- No 100mg Take 1 Tab U nivers (VITAMIN 03-14-14 by mouth ity of B1) 100 mg 00:00: 00:00 [place]. [place] tablet 00 :00 Medical Branch 2019- No 1{tbl} Take 1 Tab Univers vitamin 13 05-14 by mouth ity of w/FA 00:00: 00:00 daily. [place] ( 00 :00 Medical RX OR Branch GENERIC EQUIVALENT) tablet Vital Signs Vital Name Observation Time Observation Value Comments Source Systolic blood 2020-09-12 128 mm[Hg] University of pressure 23:45:00 [facility] Diastolic blood 2020-09-12 66 mm[Hg] University o f pressure 23:45:00 [facility] Heart rate 2020-09-12 97 /min University of 23:45:00 [facility] Body temperature 2020-09-12 36.61 Lien University of 23:45:00 [facility] Respiratory rate 2020-09-12 18 /min University of :30:00 [facility] Oxygen saturation 2020-09-12 92 /min [facility] in Arterial blood 21:30:00 [facility] by Pulse oximetry [place] Body height 2020-09-12 162.6 cm University of 20:00:00 [facility] Body weight 2020-09-12 90.719 kg University of 20:00:00 [facility] BMI 2020-09-12 34.33 kg/m2 University of 20:00:00 [facility] Systolic blood 2020-09-12 128 mm[Hg] University of pressure 23:45:00 [facility] Diastolic blood 2020-09-12 66 mm[Hg] University o f pressure 23:45:00 [facility] Heart rate 2020-09-12 97 /min University of 23:45:00 [facility] Body temperature 2020-09-12 36.61 Ilen University of 23:45:00 [facility] Respiratory rate 2020-09-12 18 /min University of 21:30:00 [facility] Oxygen saturation 2020-09-12 92 /min University of in Arterial blood 21:30:00 [facility] bertha by Pulse oximetry Branch Body height 2020-09-12 162.6 cm University of 20:00:00 [facility] Body weight 2020-09-12 90.719 kg University of 20:00:00 [facility] BMI 2020-09-12 34.33 kg/m2 University of 20:00:00 [facility] Heart rate 2020-09-11 82 /min University of 00:51:00 [facility] Oxygen saturation 2020-09-11 98 /min University of in Arterial blood 00:51:00 [facility] by Pulse oximetry Branch Systolic blood 2020-09-11 91 mm[Hg] University of pressure 00:30:00 [facility] Diastolic blood 2020-09-11 73 mm[Hg] University o f pressure 00:30:00 [facility] Body temperature 2020-09-10 36.5 Lien University of 23:46:00 [facility] Respiratory rate 2020-09-10 18 /min University of 23:46:00 [facility] Body height 2020-09-10 162.6 cm University of 23:46:00 [facility] Body weight 2020-09-10 90.992 kg University of 23:46:00 [facility] BMI 2020-09-10 34.43 kg/m2 University of 23:46:00 [facility] Systolic blood 2020-09-10 133 mm[Hg] University of pressure 22:35:00 [facility] Diastolic blood 2020-09-10 72 mm[Hg] University o f pressure 22:35:00 [facility] Heart rate 2020-09-10 104 /min University of 22:27:00 [facility] Body temperature 2020-09-10 36.72 Lien University of 22:27:00 [facility] Respiratory rate 2020-09-10 18 /min University of 22:27:00 [facility] Body height 2020-09-10 162.6 cm University of 22:27:00 [facility] Body weight 2020-09-10 90.992 kg University of 22:27:00 [facility] BMI 2020-09-10 34.43 kg/m2 University of 22:27:00 [facility] Systolic blood 2020-03-15 129 mm[Hg] University of pressure 13:32:00 [facility] Diastolic blood 2020-03-15 71 mm[Hg] University o f pressure 13:32:00 [facility] Heart rate 2020-03-15 85 /min University of 13:32:00 [facility] Body temperature 2020-03-15 36.78 Lien University of 13:32:00 [facility] Respiratory rate 2020-03-15 18 /min University of 13:32:00 [facility] Body height 2020-03-15 162.6 cm University of 13:32:00 [facility] Body weight 2020-03-15 78.926 kg University of 13:32:00 [facility] BMI 2020-03-15 29.87 kg/m2 University of 13:32:00 [facility] Systolic blood 2020-03-07 114 mm[Hg] University of pressure 01:00:00 [facility] Diastolic blood 2020-03-07 55 mm[Hg] University o f pressure 01:00:00 [facility] Heart rate 2020-03-07 99 /min University of 01:00:00 [facility] Body temperature 2020-03-07 36.67 Lien [place] of 01:00:00 [facility] Respiratory rate 2020-03-07 20 /min University of 01:00:00 [facility] Oxygen saturation 2020-03-07 98 /min University of in Arterial blood 01:00:00 [facility] bertha by Pulse oximetry [place] Body weight 2020-03-06 68.04 kg University of 23:00:00 [facility] BMI 2020-03-06 25.75 kg/m2 University of 23:00:00 [facility] Body height 2020-03-06 162.6 cm University of 22:57:00 [facility] Systolic blood 2019-06-23 146 mm[Hg] University of pressure 02:08:00 [facility] Diastolic blood 2019-06-23 89 mm[Hg] University o f pressure 02:08:00 [facility] Heart rate 2019-06-23 130 /min made aware University of 02:08:00 [facility] Body temperature 2019-06-23 36.72 Lien University of 02:08:00 [facility] Respiratory rate 2019-06-23 18 /min University of 02:08:00 [facility] Oxygen saturation 2019-06-23 95 /min University of in Arterial blood 02:08:00 [place] Medi bertha by Pulse oximetry Branch Body weight 2019-06-23 68.04 kg University of 00:05:00 [facility] BMI 2019-06-23 25.75 kg/m2 [facility] 00:05:00 [facility] Systolic blood 2019-06-10 117 mm[Hg] [place] of pressure 19:43:00 [facility] Diastolic blood 2019-06-10 66 mm[Hg] Ogema o pressure 19:43:00 [facility] Heart rate 2019-06-10 110 /min [facility] 19:43:00 [facility] Body temperature 2019-06-10 37.06 Lien [facility] 19:43:00 [facility] Respiratory rate 2019-06-10 18 /min [facility] 19:43:00 [facility] Body weight 2019-06-10 63.504 kg [facility] 19:43:00 [facility] BMI 2019-06-10 24.03 kg/m2 [facility] 19:43:00 [facility] Oxygen saturation 2019-06-10 97 /min [facility] in Arterial blood 19:43:00 [facility] by Pulse oximetry Branch Procedures Procedure Date / Time Performing Clinician Source Performed [id number] 2020-09-13 00:00:00 [facility] ADC / LCC - DRUG SCREEN 2020-09-12 22:07:00 [facility] TRIAGE Medical Branch MAGNESIUM 2020-09-12 21:06:00 [facility] COMP. METABOLIC PANEL 2020-09-12 21:06[id number] Medical Branch CBC WITH DIFF 2020-09-12 21:06:00 [facility] ECHO ROUTINE W/DOPPLER 2020-09-12 20:43:53 Fabrice Rivera [facility] COLOR Medical Branch CONSENT/REFUSAL FOR 2020-09-12 19:55:29 Doctor Unassigned, No [facility] DIAGNOSIS AND TREATMENT Name Medical Branch ASSIGNMENT OF BENEFITS 2020-09-12 19:39:54 Doctor Unassigned, No [facility] Name Medical Branch CBC WITH DIFF 2020-09-11 00:30:00 [facility] COVID-19 (ID NOW RAPID 2020-09-11 00:15:00 [facility] TEST[facility]) Medical Branch CONSENT/REFUSAL FOR 2020-09-10 23:34:19 Doctor Unassigned, No [facility] ASSIGNMENT OF BENEFITS 2020-09-10 23:33:44 Doctor Unassigned, No [facility] GROUP B STREPTOCOCCUS BY 2020-09-10 22:45:00 Gage Reid [facility] L&D VISIT 2020-09-10 06:01:00 Doctor Unassigned, No [facility] (NON-DELIVERED) [facility] EXTERNAL PROVIDER 2020-04-18 05:01:00 Doctor Unassigned, No [facility] ADC / LCC - DRUG SCREEN 2020-03-15 14:26:00 Gage Reid [facility] ASSIGNMENT OF BENEFITS 2020-03-15 13:18:47 Doctor Unassigned, No [facility] POCT URINALYSIS W/O 2020-03-15 00:00:00 Gage Reid [facility] SPECIFIC GRAVITY [facility] POCT TEST 2020-03-07 00:38:00 Edson Chambers [facility] MAGNESIUM 2020-03-06 23:24:00 Edson Chambers [facility] COMP. METABOLIC PANEL 2020-03-06 23:24:00 Edson Chambers [facility] ([id number]) [facility] SALICYLATE 2020-03-06 23:24:00 Edson Chambers [facility] ETHANOL 2020-03-06 23:24:00 Edson Chambers [facility] CBC WITH DIFFERENTIAL 2020-03-06 23:24:00 Edson Chambers [facility] URINALYSIS 2020-03-06 23:21:00 Edson Chambers [facility] ADC / LCC - DRUG SCREEN 2020-03-06 23:21:00 Edson Chambers [facility] EKG-12 LEAD 2020-03-06 23:04:57 Edson Chambers [facility] NOTICE OF PRIVACY 2019-06-10 19:40:45 Doctor Unassigned, No [facility] PRACTICES Name Medical Branch CONSENT/REFUSAL FOR 2019-06-10 19:34:31 Doctor Unassigned, No Un [facility] DIAGNOSIS AND TREATMENT Name Medical Branch Encounters Start End Encounter Admission Attending Care Care Encounter Source Date/Time Date/Time Type Type Clinicians Facility Department ID 2021-08-31 Outpatient P [facility] RACHEL [id number] Univers 04:56:11 ity of [facility] 2021-08-31 Outpatient P [facility] RACHEL [id number] Univers 04:16:00 ity of [facility] 2021-08-31 Outpatient P [facility] RACHEL [id number] Univers 04:15:28 ity of [facility] 2020-09-13 Inpatient UR Sherman Collazo [facility] [id number] [facility] 22:39:00 [id number] [facility] 2020-07-25 Inpatient Rj Diez [facility] PS[facility] [id number] 10:46:00 Rj Diez - [address] [place] [address] 2021-09-23 2021-09-23 Outpatient R [facility] [id number]-20 Univers 15:00:00 15:00:00 [id number] ity [facility] 2021-09-23 2021-09-23 Outpatient R [facility] [id number] Univers 15:00:00 15:00:00 ity of [facility] 2021-08-21 2021-08-21 Outpatient R [facility] [id number] Univers 09:30:00 09:30:00 [id number] ity [facility] 2021-08-21 2021-08-21 Outpatient R [facility] [id number] Univers 09:30:00 09:30:00 ity [facility] 2020-09-12 2020-09-12 [facility] Jeanette Gage [facility] 1.2.840.114 [id number] 13:34:00 18:35:00 Encounter Ondina Mackay [id number] [place] [id number] [place] [id number] 2020-09-12 2020-09-12 [facility] Gage Reid [facility] 1.2.840.114 [id number] Univers 13:34:00 18:35:00 Encounter Cam Toxey [id number] it[id number] [id number] [address] 2020-09-12 2020-09-12 Outpatient R GAGE ERID [facility] [id number] Univers 09:45:00 09:45:00 [id number] ity of [facility] 2020-09-12 2020-09-12 Outpatient R [facility] [id number] Univers 09:45:00 09:45:00 ity of [facility] 2020-09-11 2020-09-11 Outpatient R [facility] [id number] Univers 15:45:00 15:45:00 ity of [facility] 2020-09-11 2020-09-11 Outpatient R [facility] [id number] Univers 15:45:00 15:45:00 ity [facility] 2020-09-11 2020-09-11 [facility] 1..840.114 [id number] Univers 00:00:00 00:00:00 Cam Toxey [id number] i [id number] [phone] Wa dical [address] 2020-09-11 2020-09-11 [facility] Gage Reid [facility] [id number] Univers 00:00:00 00:00:00 Management Cam Toxey [id number] [id number] Profess[place] [phone] Wa dical nal [address] [place] [address] 2020-09-11 2020-09-11 [place] Gage Reid [facility] 1.2.840.114 [id number] 00:00:00 00:00:00 Cam Toxey [id number] [place] [id number] Professio [id number] [address] 2020-09-10 2020-09-10 [facility] Gage Reid [facility] 1.2.840.114 [id number] Univers 17:30:00 19:10:00 Encounter Cam Toxey [id number] ity of [place] [id number] [facility] [id number] [facility] [address] [place] 2020-09-10 2020-09-10 Routine Gage Reid [facility] 1.2.543.390 [id number] Univers 16:09:56 17:20:04 Cam Thompson [id number] ity of Visit [place] [id number] [facility] [phone] Wa dical nal [address] [facility] 2020-09-10 2020-09-10 Outpatient R [facility] [id number]-20 Univers 16:00:00 16:00:00 ity [facility] 2020-09-10 2020-09-10 Outpatient R [facility] [id number] Univers 16:00:00 16:00:00 ity [facility] 2020-09-03 2020-09-03 Outpatient R [facility] [id number] Univers 13:00:00 13:00:00 ity [facility] 2020-09-03 2020-09-03 Outpatient R [facility] [id number] Univers [facility]:00[facility] 2020-08-31 Outpatient R ADUM, [facility] [id number] Univers 08:30:00 08:30:[facility] 2020-08-31 2020-08-31 Outpatient R ADUM, [facility] [id number] Univers 08:30:00 08:30:00 [facility] 2020-08-21 2020-08-21 Outpatient R ADUM, [facility] [id number] Univers 10:30:00 10:30:00 [facility] 2020-08-21 2020-08-21 Outpatient R ADUM, [facility] [id number] Univers 10:30:00 10:30:00 [facility] 2020-08-14 2020-08-14 Outpatient R ADUM, [facility] [id number] Univers 10:30:00 10:30:00 JYOTI [id number] ity [facility] 2020-08-14 2020-08-14 Outpatient R ADUM, [facility] [id number] Univers 10:30:00 10:30:00 JYOTI ity [facility] 2020-08-13 2020-08-13 Outpatient R REID[facility] [id number] Univers 11:00:00 11:00:00 [id number] ity [facility] 2020-08-13 2020-08-13 Outpatient R REID, [facility] [id number] Univers 11:00:00 11:00:00 ity [facility] 2020-07-25 2020-08-02 Inpatient 1 Rj Diez [facility] PSY [id number] St. 10:07:00 13:01:00 Rj Diez [facility] 2020-07-23 2020-07-23 Outpatient R REID, [facility] [id number] Univers 09:00:00 09:00:00 [id number] ity [facility] 2020-07-20 2020-07-20 Outpatient R ADUM, [facility] [id number] Univers 08:30:00 08:30:00 JYOTI [id number] ity [facility] 2020-07-20 2020-07-20 Outpatient R ADUM, [facility] [id number] Univers 08:30:00 08:30:00 [facility] 2020-07-17 2020-07-17 Outpatient R ADUM, [facility] [id number] Univers 13:30:00 13:30:00 JYOTI [id number] ity [facility] 2020-07-17 2020-07-17 Outpatient R ADUM, [facility] [id number] Univers 13:30:00 13:30:00 JYOTI ity [facility] 2020-07-12 2020-07-12 Outpatient R REID, [facility] [id number] Univers 14:30:00 14:30:00 ity [facility] 2020-07-12 2020-07-12 Outpatient R REID, [facility] [id number] Univers 14:30:00 14:30:00 ity [facility] 2020-06-19 2020-06-19 Outpatient R REID, GAGE [facility] [id number] Univers 14:30:00 14:30:00 [id number] ity of [facility] 2020-06-19 2020-06-19 Outpatient R GAGE REID [facility] [id number] Univers 14:30:00 14:30:00 ity of [facility] 2020-04-30 2020-04-30 Outpatient R [facility] [id number] Univers 08:45:00 08:45:00 [id number] ity of [facility] 2020-04-30 2020-04-30 Outpatient R [facility] [id number] Univers 08:45:00 08:45:00 ity [facility] 2020-04-26 2020-04-26 Disaster Recovery Specialist Ultrasound, [facility] 1.2 .840.114 [id number] Univers 10:31:59 11:51:31 Visit Cheikh Campos CHIEF NURSING OFFICER [id number] 0 ity of [facility] [id number] Rajeev as MATERNAL [id number] Med ical & CHILD [address] [place] [address] 2020-04-26 2020-04-26 Outpatient P [facility] [id number] Univers 10:15:00 10:15:00 ity of [facility] 2020-04-26 2020-04-26 Outpatient [facility] [id number] Univers 10:00:00 10:00:00 [id number] ity of [facility] 2020-04-26 2020-04-26 Letter Doctor AVINA 1.2.840.114 [id number] Univers 00:00:00 00:00:00 (Out) Unassigned, ZA 350.1.13.10 [facility] 4.2.7.2.686 Rajeev as [phone] [address] 2020-04-20 2020-04-20 Outpatient R [facility] [id number] Univers 15:00:00 15:00:00 [id number] ity of [facility] 2020-04-20 2020-04-20 Outpatient R [facility] [id number] Univers 15:00:00 15:00:00 ity of [facility] 2020-04-20 2020-04-20 Telemedici Fellow, Gal [facility] U NIVERSIT 1.2.840.114 [id number] Univers 08:18:30 08:33:30 ne Visit HusseinMorro elizondo Sneha Y HEALTH [id number] ity of [id number] [id number] [facility] [address] [place] 2020-04-18 2020-04-18 Orders Doctor FABRICE 1.2.840.114 [id number] Univers 00:00:00 00:00:00 Only Unassigned, ZA 350.1.13.10 ity of [place] [facility] 4.2.7.2.686 Rajeev as [id number] [address] 2020-04-12 2020-04-12 Outpatient R [facility] [id number]-20 Univers 08:45:00 08:45:00 [id number] ity of [facility] 2020-04-12 2020-04-12 Outpatient R [facility] [id number] Univers 08:45:00 08:45:00 ity of [facility] 2020-04-06 2020-04-06 Telemedici Fellow, [facility] U NIVERSIT 1.2.840.114 [id number] Univers 08:00:00 08:30:00 ne Visit Olga Lidia [facility]ral HEALTH [id number] ity [place] [id number] [address] 2020-04-06 2020-04-06 Outpatient R [facility] [id number] Univers 08:00:00 08:00:00 ity of [facility] 2020-04-06 2020-04-06 Outpatient R [facility] [id number] Univers 08:00:00 08:00:00 ity of [facility] 2020-03-30 2020-03-30 Case Rigo [facility] [id number] Univers 00:00:00 00:00:00 Management Sanjana Mackay [id number] it[place] of [id number] Profre[place] [phone] [address] 2020-03-22 2020-03-22 Outpatient R [facility] [id number] Univers 10:15:00 10:15:00 [id number] ity of [facility] 2020-03-20 2020-03-20 Refill Gage Reid [facility] [id number] Univers 00:00:00 00:00:00 Cam Toxey 350.1.13.10 i ty of [place] [phone] Wa dical [address] 2020-03-15 2020-03-15 Outpatient R [facility] [id number] Univers 10:15:00 10:15:00 [id number] ity of [facility] 2020-03-15 2020-03-15 Initial Gage Reid [facility] 1.2.319.578 [id number] Univers 08:20:24 09:19:11 Cam Toxey 350.1.13.10 ity of Visit [place]2.[place] [phone] Wa dical nal [address] [place] [address] 2020-03-15 2020-03-15 Outpatient R GAGE REID [facility] [id number] Univers 08:00:00 08:00:00 ity of [facility] 2020-03-15 2020-03-15 Orders Doctor FABRICE 1..840.114 [id number] Univers 00:00:00 00:00:00 Only Unassigned, ZA 350.1.13.10 ity of [place] [facility] 4.2.7.2.686 Rajeev as [phone] [address] 2020-03-15 2020-03-15 Telephone Gage Reid [facility] 1..840.114 [id number] Univers 00:00:00 00:00:00 Cam Toxey 350.1.13.10 i ty of [place] [phone] Wa dical nal [address] [place] [address] 2020-03-06 2020-03-06 Emergency Edson Chambers [facility] 1.2.840.114 [id number] Univers 17:55:54 22:34:00 Jose Rafael Toxey 350.1.13.10 i ty of [place] 4.2.7.2.686 [facility] [phone] [address] 2020-03-06 2020-03-06 Emergency X Edson CHAMBERS [facility] ERT [id number] Univers 17:55:54 17:55:54 ity of [facility] 2020-02-01 2020-02-01 Telephone Neville, [facility] 1.2.840.114 [id number] Univers 00:00:00 00:00:00 Ang Rmchp CHIEF NURSING OFFICER 350.1.13.10 ity of [facility] [id number] Rajeev as MATERNAL [phone] Med ical & CHILD [address] [place] [address] 2019-06-22 2019-06-22 Emergency Deedee, TRAUMA 1.2.102.725 [id number] Univers 19:07:21 21:13:00 [facility] 350.1.13.10 ity of 4.2.7.2.686 [facility] [id number] [facility] [address] [place] 2019-06-10 2019-06-10 [facility] 1.2.840.114 [id number] Univers 14:44:46 15:34:00 Sepideh [place] 350.1.13.10 ity of [place] 4.2.7.2.686 [facility] [phone] [address] 2019-06-10 2019-06-10 Orders Doctor FABRICE 1.2.840.114 [id number] Univers 00:00:00 00:00:00 Only Unassigned, ZA 350.1.13.10 ity of [place] [facility] 4.2.7.2.686 Rajeev as [phone] [address] Results Test Description Test Time Test Comments [...] = PLTMR) NORMAL IOANA L Comments to Web Specialist: TO BE COLLECTED BY LABRUBELLA [id number] 14:15:00 Test Item Value Reference Range Interpretation Comments RUBELLA SCREEN 73.8 IUnit/ml Results >10. 0IUnits/ml (test code = are considered positive RUBSC) inaccordance wi th the CLSI guidelines and based on the WH O International S tandard for Anti-Rubell a serum as anindicator of immune status and a br eakpoint to detect mostseropositiv e persons. Comments to Web Specialist: please use blood alreadyin the labB [id number] 07:26:00 Test Item Value Reference Range Interpretation Comments HEMOGLOBIN (test code = HGB) 10.9 g/dL 10.7-13.9 N HEMATOCRIT (test code = HCT) 34.6 % 32.1-42.1 N AG HEPATITIS B [id number] 04:56:00 Test Item Value Reference Range Interpretation Comments AG HEPATITIS B SURFACE (test code NONREACTIVE NONREACTIVE = HBSAG) IS CONSENT FORM SIGNED FOR HIV TESTING? YAB HEPATITIS C [id number] 04:56:00 Test Item Value Reference Range Interpretation Comments AB HEPATITIS C (test code = NONREACTIVE NONREACTIVE HCVAB) SIGNAL TO CUTOFF (test code = 0.10 <0.80 N CUTOFF) IS CONSENT FORM SIGNED FOR HIV TESTING? YAB [id number] 04:56:00 Test Item Value Reference Range Interpretation Comments AB TREPONEMA (test code = TREPAB) NONREACTIVE NONREACTIVE IS CONSENT FORM SIGNED FOR HIV TESTING? YAB HIV 1 04:56:00 Test Item Value Reference Range Interpretation Comments AB HIV 1 2 (test code = CJO75GX) NONREACTIVE IS CONSENT FORM SIGNED FOR HIV TESTING? YAG HEPATITIS B [id number] 04:56:00 Test Item Value Reference Range Interpretation Comments AG HEPATITIS B SURFACE (test code NONREACTIVE NONREACTIVE = HBSAG) IS CONSENT FORM SIGNED FOR HIV TESTING? YAB HEPATITIS C [id number] 04:56:00 Test Item Value Reference Range Interpretation Comments AB HEPATITIS C (test code = NONREACTIVE NONREACTIVE HCVAB) SIGNAL TO CUTOFF (test code = 0.10 <0.80 N CUTOFF) IS CONSENT FORM SIGNED FOR HIV TESTING? YAB [id number] 04:56:00 Test Item Value Reference Range Interpretation Comments AB TREPONEMA (test code = TREPAB) NONREACTIVE NONREACTIVE IS CONSENT FORM SIGNED FOR HIV TESTING? YAB HIV 1 04:56:00 Test Item Value Reference Range Interpretation Comments AB HIV 1 2 (test NONREACTIVE NONREACTIVE Done by [facility] code = [id number]) 4th Gen HIV Ag/Ab Combo Screen IS CONSENT FORM SIGNED FOR HIV TESTING? YAG HEPATITIS B [id number] 04:41:00 Test Item Value Reference Range Interpretation Comments AG HEPATITIS B SURFACE (test code NONREACTIVE NONREACTIVE = HBSAG) IS CONSENT FORM SIGNED FOR HIV TESTING? YAB HEPATITIS C [id number] 04:41:00 Test Item Value Reference Range Interpretation Comments AB HEPATITIS C (test code = HCVAB) NONREACTIVE SIGNAL TO CUTOFF (test code = CUTOFF) <0.80 IS CONSENT FORM SIGNED FOR HIV TESTING? YAB [id number] 04:41:00 Test Item Value Reference Range Interpretation Comments AB TREPONEMA (test code = TREPAB) NONREACTIVE NONREACTIVE IS CONSENT FORM SIGNED FOR HIV TESTING? YAB HIV 1 04:41:00 Test Item Value Reference Range Interpretation Comments AB HIV 1 2 (test code = HAP20GO) NONREACTIVE IS CONSENT FORM SIGNED FOR HIV TESTING? YCOMPREHENSIVE METABOLIC [id number] 02:39:00 Test Item Value Reference Range Interpretation [...] code = ALKP) COVID 19 Asymptomatic IH [id number] 00:09:00 Test Item Value Reference Range Interpretation [...] and/o r diagnosis of CO VID-19 under Yymulfs37 4(b)(1) of the Act, 21 U.S .C. 360bbb-3(b)(1), unless theauthorizatio n is terminated or r evoked sooner. CBC W/AUTO [id number] 00:00:00 Test Item Value Reference Range Interpretation Comments WHITE BLOOD CELL (test 20.9 K/mm3 6.6-12.1 HH RESUL TS CALLED TO code = WBC) helene.READ BACK & CONFIRMED? yes. BY NARDA.MR 7321. RED BLOOD CELL (test 3.61 M/mm3 3.45-5.01 [...] NORMAL NORMAL REQUIRED (test code = PLTMR) [facility] - DRUG SCREEN [id number] 22:29:00 Test Item Value Reference Range Interpretation Comments BENZO U (test code = Presumptive Negative A 9610349523) Positive ARNOLD U (test code = Negative Negative 0215424121) AMPHET (test code = Negative Negative 0348005724) THC (test code = Presumptive Negative A Confirmatio n of 7307798769) Positive Presumptive Positive THC result requires physician order . METHADONE (test code Negative Negative = 4824892931) Meth U (test code = Negative Negative 3046183360) OPIATES (test code = Presumptive Negative A 1157340462) Positive Cocaine Metabolite Negative Negative (test code = 6034041362) PROPOXY (test code = Negative Negative 4934065031) Tric U (test code = Negative Negative 1252811619) PCP (test code = Negative Negative 7461377229) OXYCOD (test code = Negative Negative 9551720934) YAMIL (test code = Urine Drug Cutoff [...] testing). Lab Interpretation Abnormal (test code = 59239-4) [facility] (37712)2020-09-12 21:50:00 Test Item Value Reference Range Interpretation Comments NA (test code = 133 mmol/L 135-145 L 0886972481) K (test code = 3.8 mmol/L 3.5-5 6091103855) CL (test code = 106 mmol/L 98-108 5226526082) CO2 TOTAL (test code = 23 mmol/L 23-31 5689136864) AGAP (test code = 2-16 4464783928) BUN (test code = 10 mg/dL 7-23 5972933315) GLUCOSE (test code = 106 mg/dL 70-110 6769311677) CREATININE (test code = 0.53 mg/dL 0.5-1.04 0720030943) TOTAL BILI (test code = 0.3 mg/dL 0.1-1.7 6874950010) CALCIUM (test code = 8.3 mg/dL 8.6-10.6 L 3794422310) T PROTEIN (test code = 6.0 g/dL 6.3-8.2 L 0787721300) ALBUMIN (test code = 3.1 g/dL 3.5-5 L 6723159103) ALK PHOS (test code = 185 U/L 34-122 H 5875257109) ALTv (test code = 15 U/L 5-35 1742-6) AST(SGOT) (test code = 24 U/L 13-40 5229076321) eGFR Calculation mL/min/1.73m2 (Non-) (test code = 2200136844) eGFR Calculation mL/min/1.73m2 () (test code = 8642077868) YAMIL (test code = YAMIL) Association of [...] tests). Lab Interpretation Abnormal (test code = 18698-1) [facility]-11 21:50:00 Test Item Value Reference Range Interpretation Comments MAGNESIUM (test code = 1594320590) 1.8 mg/dL 1.7-2.4 Lab Interpretation (test code = Normal 08587-8) [facility] WITH [id number] 21:37:00 Test Item Value Reference Range Interpretation [...] RDW-SD (test code = 49.1 fL 39-49.9 15827-4) RDW-CV (test code = 14.3 % 12-15.5 788-0) PLT (test code = See_Comment [Automated 777-3) message] The system which generated this result transmit bhavya reference range : 166 - 358 10*3/ ?L. The reference range was not u sed to interpret th is result as normal/abnormal . MPV (test code = 10.0 fL 9.5-12.9 58876-9) NRBC/100 WBC (test See_Comment [Automat ed code = 4919384274) message] The system which generated this result transmit bhavya reference range : 0.0 - 10.0 /100 WBCs. The reference range was not used to interpret this result as normal/abnormal . NRBC x10^3 (test code <0.01 See_Comment [Auto mated = 4893137341) message] The system which generated this result transmit bhavya reference range : 10*3/?L. The reference range was not used to interpret this result as normal/abnormal . GRAN MAT (NEUT) % 77.1 % (test code = 770-8) IMM GRAN % (test code 1.00 % = [id number]) LYMPH % (test code = 15.4 % 736-9) MONO % (test code = 5.1 % 5905-5) EOS % (test code = 1.1 % 713-8) BASO % (test code = 0.3 % 706-2) GRAN MAT x10^3(ANC) 11.59 10*3/uL 1.88-7.09 H (test code = [id number]) IMM GRAN x10^3 (test 0.15 10*3/uL 0-0.06 H code = [id number]) LYMPH x10^3 (test code 2.32 10*3/uL 1.32-3.29 = 731-0) MONO x10^3 (test code 0.76 10*3/uL 0.33-0.92 = 742-7) EOS x10^3 (test code = 0.17 10*3/uL 0.03-0.39 711-2) BASO x10^3 (test code 0.05 10*3/uL 0.01-0.07 = 704-7) Lab Interpretation Abnormal (test code = 57983-7) [facility] STREPTOCOCCUS BY [id number] 14:02:00 Test Item Value Reference Range Interpretation Comments Group B Streptococcus by PCR (test Negative Negative code = 27983-1) Lab Interpretation (test code = Normal 64847-2) [facility]OVID[facility] (ID NOW RAPID TESTING)2020-09-11 00:51:00 Test Item Value Reference Range Interpretation Comments SARS-CoV-2 Rapid ID NOW Not Detected Not Detected (test code = 37340-1) YAMIL (test code = YAMIL) ID NOW COVID-19 Assay is an isothermal nucleic acid amplification test intended for the qualitative detection of nucleic acid from SARS-CoV-2 viral RNA in nasopharyngeal (2ND GRADE TEACHER) specimens. It is used under Emergency Use [...] indicated. Lab Interpretation Normal (test code = 70706-6) [facility] WITH [id number] 00:50:00 Test Item Value Reference Range Interpretation Comments WBC (test code = See_Comment H [Automated 6690-2) message] The sy stem which generated this [...] (test code = 50.4 fL 39-49.9 H 10661-5) RDW-CV (test code = 14.5 % 12-15.5 788-0) PLT (test code = See_Comment [Automated 777-3) message] The sy stem which generated this result transmitted reference range : 166 - 358 10*3/ ?L. The reference r miguelina was not used to interpret this result as normal/abnormal . MPV (test code = 9.9 fL 9.5-12.9 10101-6) NRBC/100 WBC (test See_Comment [Automat ed code = 6626405865) message] The system which generated this result transmitted reference range : 0.0 - 10.0 /100 WBCs. The refer ence range was not u sed to interpret th is result as normal/abnormal . NRBC x10^3 (test code <0.01 See_Comment [Auto mated = 7084763640) message] The s ystem which generated this result transmitted reference range : 10*3/?L. The reference range was not used to interpret this result as normal/abnormal . GRAN MAT (NEUT) % 76.4 % (test code = 770-8) IMM GRAN % (test code 0.90 % = 9922035202) LYMPH % (test code = 16.0 % 736-9) MONO % (test code = 5.2 % 5905-5) EOS % (test code = 1.3 % 713-8) BASO % (test code = 0.2 % 706-2) GRAN MAT x10^3(ANC) 9.39 10*3/uL 1.88-7.09 H (test code = 2396504801) IMM GRAN x10^3 (test 0.11 10*3/uL 0-0.06 H code = 3657160587) LYMPH x10^3 (test code 1.97 10*3/uL 1.32-3.29 = 731-0) MONO x10^3 (test code 0.64 10*3/uL 0.33-0.92 = 742-7) EOS x10^3 (test code = 0.16 10*3/uL 0.03-0.39 711-2) BASO x10^3 (test code 0.03 10*3/uL 0.01-0.07 = 704-7) Lab Interpretation Abnormal (test code = 41826-0) [facility] CenterLactate Owekcvshiespz7363-37-40 08:28:44 Test Item Value Reference Range Interpretation Comments LDH (test code = LDH) 166 U/L 120-246 Comprehensive Metabolic Nycka9652-13-39 08:16:47 Test Item Value Reference Range Interpretation [...] = Lipemia) 0 g/dL 1-2 Comprehensive Metabolic [id number] 08:16:47 Test Item Value Reference Range Interpretation [...] = 0 g/dL 1-2 Lipemia) Comprehensive Metabolic Vschn8515-51-04 08:16:47 Test Item Value Reference Range Interpretation [...] g/dL 1-2 Lipemia) Complete Blood Count without [id number] 08:09:40 Test Item Value Reference Range Interpretation [...] = NRBC Abs) 0.00 x10 N Creatinine Ozdwt7734-73-06 15:39:13 Test Item Value Reference Range Interpretation Comments U Creatinine (test 89.1 mg/dL N Reference ranges have code = U Creatinine) not bee n established for this assay. Protein [id number] 15:39:13 Test Item Value Reference Range Interpretation Comments U Protein (test code = U Protein) 10.4 mg/dL 1.0-14.0 Complete Blood Count without Oenz0111-07-43 06:39:12 Test Item Value Reference Range Interpretation [...] x10 N US OB Greater Than 14 Nlnor7668-75-08 19:21:42Patient: MARTINE LENTZ Date/Time07/26/2020 17:29 CDTReason for Examper md order;Other (please specify)ReportOB ULTRASOUND LIMITEDLocation: [id number] HISTORY: Confirm pregnancyLMP gest.age by LMP 34 [...] Reference Range Interpretation Comments HCG, Beta Quantitative 88655.1 mIU/mL N 17- 54 (test code = HCG, Beta (Non- )?41 Quantitative) (Post-menopaus al) RPR Gmwqzzzwyfn9257-88-71 12:50:28 Test Item Value Reference Range Interpretation Comments RPR Qual (test code = RPR Qual) Non-Reactive Non-Reactive Reactive Control (test code = Reactive Reactive Control) Weak Reactive Control (test Weak Reactive code = Weak Reactive Control) Non-Reactive Control (test code Non-Reactive = Non-Reactive Control) Lot # (test code = Lot #) [id number] N Expiration Dt (test code = 08-01-2021 N Expiration Dt) Lipid [id number] 07:58:23 Test Item Value Reference Range Interpretation [...] LDL/HDL Ratio=L DL Calc/HDL Chol Thyroid Stimulating Vslygfz5912-59-67 07:58:23 Test Item Value Reference Range Interpretation Comments TSH (test code = TSH) 1.312 mcIU/mL 0.550-4.780 Hemoglobin [id number] 07:54:16 Test Item Value Reference Range Interpretation Comments Hemoglobin A1c (test code 5.1 % 4.0-5.8 Di abetic >=6.5 = Hemoglobin A1c) %Prediabet es 5.7-6.4 %Normal <5.7 % [facility] - DRUG SCREEN [id number] 22:40:00 Test Item Value Reference Range Interpretation Comments BENZO U (test code = Negative Negative 6109248513) ARNOLD U (test code = Negative Negative 4878636321) AMPHET (test code = Negative Negative 4145731678) THC (test code = Negative Negative 9402449652) METHADONE (test code = Negative Negative 2923298795) Meth U (test code = Negative Negative 7167031477) OPIATES (test code = Negative Negative 2936891065) Cocaine Metabolite (test Negative Negative code = 6041726249) PROPOXY (test code = Negative Negative 3924966409) Tric U (test code = Negative Negative 7492848509) PCP (test code = Negative Negative 9956305627) OXYCOD (test code = Negative Negative 7775897958) YAMIL (test code = YAMIL) Urine Drug [...] testing). Lab Interpretation (test Normal code = 53913-0) [facility] CenterPOWI URINALYSIS W/O SPECIFIC [id number] 14:00:00 Test Item Value Reference Range Interpretation [...] code = 3257) N/A Negative - Negative [facility] CenterCOM. METABOLIC PANEL (66521)2020-03-07 00:39:00 Test Item Value Reference Range Interpretation Comments NA (test code = 139 mmol/L 135-145 9106018673) K (test code = 3.9 mmol/L 3.5-5 0730067304) CL (test code = 108 mmol/L 98-108 1236635315) CO2 TOTAL (test code = 22 mmol/L 23-31 L 9112258992) AGAP (test code = 2-16 2105380589) BUN (test code = 5 mg/dL 7-23 L 8703087253) GLUCOSE (test code = 103 mg/dL 70-110 5068441442) CREATININE (test code = 0.44 mg/dL 0.5-1.04 L 1790213507) TOTAL BILI (test code = <0.1 0.1-1.1 L 4038124176) CALCIUM (test code = 9.7 mg/dL 8.6-10.6 2246983757) T PROTEIN (test code = 6.2 g/dL 6.3-8.2 L 8489179375) ALBUMIN (test code = 3.6 g/dL 3.5-5 1462970744) ALK PHOS (test code = 56 U/L 34-122 1427927880) ALTv (test code = 10 U/L 5-35 1742-6) AST(SGOT) (test code = 20 U/L 13-40 6006822176) eGFR Calculation mL/min/1.73m2 (Non-) (test code = 7432872196) eGFR Calculation mL/min/1.73m2 () (test code = 4480248895) YAMIL (test code = YAMIL) Association of [...] tests). Lab Interpretation Abnormal (test code = 70014-7) [facility] CenterACETAMINOPHEN2020-05-06 00:39:00 Test Item Value Reference Range Interpretation Comments ACETAMINOP (test code = <10.0 10-30 L 1036556819) YAMIL (test code = YAMIL) Toxic: Greater than 200 ug/mL @ 4 hour post ingestion or greater than 50 ug/mL @ 12 hour post ingestion Lab Interpretation (test Abnormal code = 34637-4) [facility] CenterSALICYLATE2020-05-06 00:39:00 Test Item Value Reference Range Interpretation Comments SALICYLATE (test code <10 mg/L = 2133921354) YAMIL (test code = YAMIL) Therapeutic Range: ? Analgesic and Antipyretic Use ? 20-100 mg/L ? ? Anti-Inflammatory Use ? 100-250 mg/L Toxic Range: ? Greater than 300 mg/L [facility] CenterPOCT [id number] 00:38:00 Test Item Value Reference Range Interpretation Comments POCT PREG (test code = 1605) positive On board controls acceptable with present C Line (test code = 3574) POCT PREG LOT # (test code = 3575) [id number] POCT PREG TEST DATE (test 06-01-2021 code = 3576) Lab Interpretation (test code = Normal 50347-8) 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 CenterMAGNESIUM2020-05-06 00:36:00 Test Item Value Reference Range Interpretation Comments MAGNESIUM (test code = 6039413201) 1.6 mg/dL 1.7-2.4 L Lab Interpretation (test code = Abnormal 16877-7) [facility] CenterURINALYSIS2020-05-06 00:15:00 Test Item Value Reference Range Interpretation Comments APPEARANCE (test code = Clear Clear 5388904663) COLOR (test code = Yellow Yellow 8892785806) PH (test code = 4.8-8.0 5849910120) SP GRAVITY (test code = 1.003-1.030 5871423351) GLU U QUAL (test code = Normal Normal 9648888571) BLOOD (test code = Negative Negative 1142812349) KETONES (test code = Negative Negative 5349503190) PROTEIN (test code = Negative Negative 2887-8) UROBILIN (test code = Normal Normal 8483053165) BILIRUBIN (test code = Negative Negative 5020611398) NITRITE (test code = Negative Negative 5919049264) LEUK MARY (test code = Negative Negative 7653517894) RBC/HPF (test code = <1 See_Comment [Autom ated message] 6230925806) The system [employer] generated this result transmitted ref erence range: 0 - 3 HP F. The reference range was not used to int erpret this result as normal/abnormal . WBC/HPF (test code = See_Comment [Autom ated message] 1649273048) The system [employer] generated this result transmitted ref erence range: 0 - 5 HP F. The reference range was not used to int erpret this result as normal/abnormal . BACTERIA (test code = Few Negative A 2243233962) MUCOUS (test code = Slight Negative LPF A 3094356369) SQ EPITH (test code = HPF 2224943953) Lab Interpretation (test Abnormal code = 86301-7) [facility] - DRUG SCREEN [id number] 23:49:00 Test Item Value Reference Range Interpretation Comments BENZO U (test code = Presumptive Positive Negative A 7169523662) ARNOLD U (test code = Negative Negative 0692248812) AMPHET (test code = Negative Negative 4508284472) THC (test code = Negative Negative 1766344809) METHADONE (test code = Negative Negative 7009906571) Meth U (test code = Negative Negative 9332099106) OPIATES (test code = Negative Negative 4891243510) Cocaine Metabolite (test Negative Negative code = 9857519405) PROPOXY (test code = Negative Negative 7573878742) Tric U (test code = Negative Negative 0812013695) PCP (test code = Negative Negative 8501798281) OXYCOD (test code = Negative Negative 0054457613) YAMIL (test code = YAMIL) Urine Drug [...] testing). Lab Interpretation (test Abnormal code = 03607-6) [facility] WITH [id number] 23:34:00 Test Item Value Reference Range Interpretation Comments WBC (test code = See_Comment H [Automated 0690-2) message] The sy stem which generated this result transmitted reference range : 4.30 - 11.10 10*3/?L. The reference range was not used to interpret this result as normal/abnormal . RBC (test code = See_Comment L [Automated 299-8) message] The sy stem which generated this [...] RDW-SD (test code = 42.4 fL 39-49.9 67612-7) RDW-CV (test code = 13.0 % 12-15.5 788-0) PLT (test code = See_Comment [Automated 777-3) message] The sy stem which generated this result transmitted reference range : 166 - 358 10*3/ ?L. The reference r miguelina was not used to interpret this result as normal/abnormal . MPV (test code = 9.7 fL 9.5-12.9 04062-8) NRBC/100 WBC (test See_Comment [Automat ed code = 8029170335) message] The system which generated this result transmitted reference range : 0.0 - 10.0 /100 WBCs. The refer ence range was not u sed to interpret th is result as normal/abnormal . NRBC x10^3 (test code <0.01 See_Comment [Auto mated = 6157853863) message] The s ystem which generated this result transmitted reference range : 10*3/?L. The reference range was not used to interpret this result as normal/abnormal . GRAN MAT (NEUT) % 72.0 % (test code = 770-8) IMM GRAN % (test code 0.40 % = 6115484358) LYMPH % (test code = 21.6 % 736-9) MONO % (test code = 3.9 % 5905-5) EOS % (test code = 1.8 % 713-8) BASO % (test code = 0.3 % 706-2) GRAN MAT x10^3(ANC) 8.22 10*3/uL 1.88-7.09 H (test code = 3143673677) IMM GRAN x10^3 (test 0.05 10*3/uL 0-0.06 code = 0949774439) LYMPH x10^3 (test code 2.47 10*3/uL 1.32-3.29 = 731-0) MONO x10^3 (test code 0.45 10*3/uL 0.33-0.92 = 742-7) EOS x10^3 (test code = 0.20 10*3/uL 0.03-0.39 711-2) BASO x10^3 (test code 0.03 10*3/uL 0.01-0.07 = 704-7) Lab Interpretation Abnormal (test code = 37131-1) [facility] CenterRPR, [id number] 14:45:00 Test Item Value Reference Range Interpretation Comments RPR (test code = RPR) Non-Reactive Non-Reactive N Thyroid Stimulating Hormone (TSH)2017-12-30 07:29:00 Test Item Value Reference Range Interpretation Comments TSH (test code = TSH) 2.42 mIU/mL 0.270-4.200 N BHCG, Serum, [id number] 07:29:00 Test Item Value Reference Range Interpretation Comments B hCG, Quant (test <1 mIU/mL Weeks of Gestation code = BHCGQT) Ranges (mIU/m L)3 weeks 5. 40 - 72.04 weeks 10.2 - 7085 w eeks 217 - 46221 weeks 152 - 316163 weeks 4059 - 153 7678 weeks 22369 - 3835787 weeks 591 09 - 89393835 weeks 66995 - 1704 0912 weeks 40522 - 19995217 week s 38931 - 93 22251 weeks 23707 - 7659739 weeks 8904 - 5533 217 weeks 82 40 - 1014333 weeks 9649 - 49226 Lipid Lydzfcb7227-06-14 07:19:00 Test Item Value Reference Range Interpretation Comments Cholesterol (test 132 mg/dL 0-200 N code = CHOL) Triglycerides (test 122 mg/dL 9-200 N code = TRIG) HDL (test code = 21 mg/dL 50-60 L HDL) Chol/HDL (test code 6.3 Ratio 0.0-4.4 H = CHOLPHDL) LDL, Calculated 87 0-130 N (NOTE)RISK O F HEART (test code = LDLC) DISEASEPu blished by Lebanese Heart AssociationAnal yte Optim al Boderline Increased RiskC HOL <200 200-239 >240TRI G <150 150-199 >200HDL Male: >60 <40HDL Female: >60 <50 LDL < 100 130-15 9 >160 LDL NEAR OPTIMAL IS 100- 129 VLDL (test code = 24 mg/dL 5-40 N VLDL) LDL/HDL (test code = 4 LDLPHDL) [id number] 04:24:00 Test Item Value Reference Range Interpretation [...] code = THC) POSITIVE Negative A Urinalysis [id number] 03:47:00 Test Item Value Reference Range Interpretation Comments Color (test code = [place] Yellow,Straw,Pl A The va lue [place]er COLOR) yellow originally released by JENA on 12/30/2017 03:4 2 waschanged to P ink by JENA on 12/30/2017 03:4 7 Clarity (test code = Sl Cloudy Clear A The tomi ue Clear CLAR) originally released by JENA on 12/30/2017 03:4 2 waschanged to S l Cloudy by BRIANA PARHAM on 12/30/2017 03:47 Specific [place] 1.006 1.001-1.035 N (test code = SPGR) [...] code Few /HPF = BACT) Comprehensive Metabolic Wfgmy4636-75-97 01:00:00 Test Item Value Reference Range Interpretation [...] ars ofage have not been validated by shona burt MDRD study and mendy elizondo be interpretedwith caution.eGFR Re sult Interpretation: eGFR > or = 60 is in t he Normal RangeeGF R < 60 may mean kidney diseaseeGFR < 1 5 may mean kidney failureRange s recommended by the National Kidney Foundation,http ://nkd ep.nih.gov Alcohol/Ethanol, [id number] 01:00:00 Test Item Value Reference Range Interpretation Comments Alcohol, Ethyl <0.01 g/dL 0.00-0.01 N Intoxicated 0.080 (test code = ETOH) g/dL or m ore CBC with Vztutmwzpwqo5961-90-22 00:45:00 Test Item Value Reference Range Interpretation [...] code = ALYMPH) 3.8 K/cumm 0.5-4.6 N [place] Abs (test code = AMONO) 0.5 K/cumm 0.0-1.2 N Eos Abs (test code = AEOS) 1.24 K/cumm 0.00-0.74 H Baso Abs (test code = ABASO) 0.1 K/cumm 0.00-0.21 N
--- NOTE | 2021-10-09 14:01 | ER ---
Nurse's Notes [facility] Name: Miriam Fried Age: 41 yrs Sex: Female : 1980 Arrival Date: 10/09/2021 Time: 13:39 Bed Waiting Private MD: Diagnosis: Anxiety disorder, unspecified Presentation: 10/09 13:50 Chief complaint: Patient states: im off my mental health medicine and my friends son hernán was murdered this weekend. Im not suicidal or homocidal. Coronavirus screen: Vaccine status: Patient reports being unvaccinated. Client denies travel out of the [place] in the last 14 days. Ebola Screen: Patient negative for fever greater than or equal to 101.5 degrees Fahrenheit, and additional compatible Ebola Virus Disease symptoms Patient denies exposure to infectious person. Patient denies travel to an Ebola-affected area in the 21 days before illness onset. Initial Sepsis Screen: Does the patient meet any 2 criteria? No. Patient's initial sepsis screen is negative. Does the patient have a suspected source of infection? No. Patient's initial sepsis screen is negative. Risk Assessment: Do you want to hurt yourself or someone else? Patient reports no desire to harm self or others. 13:50 Method Of Arrival: Ambulatory [facility] 13:50 Acuity: REGINA 4 [facility] 13:57 Onset of symptoms was October 2021. [facility] Triage Assessment: 13:54 General: Appears in no apparent distress. Behavior is cooperative, anxious. Pain: [facility] Denies pain. 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 [facility] Historical: - Allergies: 13:54 Bactrim DS; "itching, mouth drooping"; [facility] 13:54 Morphine; [facility] - Home Meds: 13:54 Prozac 20 mg Oral cap 1 cap once daily [Active]; Xanax 0.5 mg Oral tab 1 tab daily [facility] [Active]; - PMHx: 13:54 ADD/ADHD; Anxiety; Atrial Fib; Depression; depressive disorder; PTSD; [facility] - PSHx: 13:54 section; [facility] - Immunization history:: Adult Immunizations up to date. - Social history:: Smoking status: Patient reports the use of cigarette tobacco products, smokes one pack cigarettes per day. Screenin:55 Abuse screen: Denies threats or abuse. Denies injuries from another. Nutritional 5 screening: No deficits noted. Tuberculosis screening: No symptoms or risk factors identified. Fall Risk None identified. Psych: 13:55 [place] Suicide Severity Screening: In the past month, have you wished you were jh5 or wished you could go to sleep and not wake up? Patient responds "No." "In the past month, have you actually had any thoughts of killing yourself?" Patient responds "no." "In your lifetime, have you ever done anything, started to do anything, or prepared to do anything to end your life?" Patient responds "no.". Subjective: Patient's mood is sad. Objective: Patient is cooperative. Interventions: no need. Safety Checks: med refill. Pt denies substance abuse. Commitment: med refill. Vital Signs: 13:50 BP 147 / 63; Pulse 88; Resp 16; Temp 98.6; Pulse Ox 96% ; Weight 99.79 kg; Height 5 ft. jh5 9 in. (175.26 cm); 13:50 Body Mass Index 32.49 (99.79 kg, 175.26 cm) [facility] ED Course: 13:39 Patient arrived in ED. ds1 13:54 Triage completed. 5 13:54 Mikayla English FNP-C is [facility]. kb 13:54 Mackenzie Mackay MD is Attending Physician. kb 13:55 Arm band placed on right wrist. 5 13:55 No provider procedures requiring assistance completed. Patient did not have IV access [facility] during this emergency room visit. 13:57 Patient has correct armband on for positive identification. Side rails up X 1. 5 Administered Medications: 14:23 Drug: KLONopin (clonazePAM) 0.5 mg Route: PO; 5 Outcome: 14:01 Discharge ordered by . kb 14:23 Discharged to home ambulatory. 5 14:23 Condition: good 14:23 Discharge instructions given to patient, Instructed on discharge instructions, follow up and referral plans. benefits of quitting smoking, safety practices, Demonstrated understanding of instructions, follow-up care, medications, Prescriptions given X 1. 14:24 Patient left the ED. [facility] Signatures: Mikayla English FNP-C FNP-Keila Quan ds1 Sarkis, Sylvie, RN RN jh5
--- NOTE | 2021-10-09 14:01 | EDPHYS ---
Physician Documentation [facility] Name: Miriam Fried Age: 41 yrs Sex: Female : 1980 Arrival Date: 10/09/2021 Time: 13:39 Bed Waiting Private MD: ED Physician Mackenzie Mackay HPI: 10/09 13:57 This 41 yrs old Female presents to ER via Ambulatory with complaints of Psych Problem - kb Med Refill. 13:57 The patient presents to the emergency department with anxiety, over a . Onset: The kb symptoms/episode began/occurred yesterday. Past psychiatric history: Prior diagnosis: bipolar disorder, depression, Psychiatric medications include: Klonipin, Prozac, Primary psychiatric physician: Dr. Tyler Keith, the patient does not have a previous inpatient psychiatric history. Associated signs and symptoms: Pertinent positives; anxiety. Severity of symptoms: At their worst the symptoms were moderate in the emergency department the symptoms are unchanged. The patient has not experienced similar symptoms in the past. The patient has not recently seen a physician. Pt reports she ran out of [employer] and missed her dr's appt. States a friend of the family and it has caused a lot of anxiety. Came to get a prescription until she can get into her psych . 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 - Social history:: Smoking status: Patient reports the use of cigarette tobacco products, smokes one pack cigarettes per day. ROS: 14:00 Constitutional: Negative for fever, chills, and weight loss. kb 14:00 Psych: Positive for anxiety, Negative for homicidal ideation, suicide gesture, suicidal ideation. 14:00 All other systems are negative. Exam: 14:00 Constitutional: This is a well developed, well nourished patient who is awake, alert, kb and in no acute distress. Head/Face: Normocephalic, atraumatic. ENT: Moist Mucous membranes Respiratory: Respirations even and unlabored. No increased work of breathing. Talking in full sentences Skin: Warm, dry with normal turgor. Normal color. MS/ Extremity: Pulses equal, no cyanosis. Neurovascular intact. Full, normal range of motion. Neuro: Awake and alert, GCS 15, oriented to person, place, time, and situation. Moves all extremities. Normal gait. 14:00 Psych: Behavior/mood is pleasant, cooperative, anxious, Affect is animated, Oriented to person, place, time, Patient has no thoughts/intents to harm self or others. Judgement / Insight is normal. Memory is normal. Delusions/hallucinations are not present. Vital Signs: 13:50 BP 147 / 63; Pulse 88; Resp 16; Temp 98.6; Pulse Ox 96% ; Weight 99.79 kg; Height 5 ft. [facility] 9 in. (175.26 cm); 13:50 Body Mass Index 32.49 (99.79 kg, 175.26 cm) [facility] MDM: 13:57 Data reviewed: vital signs, nurses notes. Data interpreted: Pulse oximetry: on room air kb is 96 %. Interpretation: normal. Counseling: I had a detailed discussion with the patient and/or guardian regarding: the historical points, exam findings, and any diagnostic results supporting the discharge/admit diagnosis, the need for outpatient follow up, a family practitioner, a psychiatrist, to return to the emergency department if symptoms worsen or persist or if there are any questions or concerns that arise at home. 13:59 ED course: TOUR DIRECTOR aware reviewed. No current klonopin prescription. kb 14:01 Patient medically screened. kb Administered Medications: 14:23 Drug: KLONopin (clonazePAM) 0.5 mg Route: PO; 5 Disposition: 22:31 Co-signature as Attending Physician, Mackenzie Mackay MD I agree with the assessment and sp3 plan of care. Disposition Summary: 10/09/21 14:01 Discharge Ordered Location: Home kb Condition: Stable kb Diagnosis - Anxiety disorder, unspecified kb Followup: kb - With: Emergency Department - When: As needed - Reason: Worsening of condition Followup: kb - With: Private Physician - When: 2 - 3 days - Reason: Recheck today's complaints, Continuance of care, Re-evaluation by your physician Discharge Instructions: - Discharge Summary Sheet kb - Generalized Anxiety Disorder, Adult kb Forms: - Medication Reconciliation Form kb - Thank You Letter kb - Antibiotic Education kb - Prescription Opioid Use kb Prescriptions: - Klonopin 0.5 mg Oral Tablet - take 1 tablet by ORAL route 3 times per day As needed; 6 tablet; Refills: 0, kb Product Selection Permitted Signatures: Mikayla English FNP-C FNP-Mackenzie Louise MD MD sp3 Sylvie Dockery RN RN jh5
[2021-10-09] MEDS ORDERED: clonazePAM 0.5 MG TAB ONE (14:22)
[2021-10-09 14:29] VITALS: BP 147/63; TEMP 98.6; O2SAT 96
== END 2021-10-09 14:24 | disposition home or self-care (01) ==
LOC: ER 13:36
DX: F41.9 Anxiety disorder, unspecified (principal); F17.210 Nicotine dependence, cigarettes, uncomplicated; Z88.1 Allergy status to other antibiotic agents; Z88.5 Allergy status to narcotic agent
CPT/HCPCS: 99283

== ENCOUNTER 2023-07-22 14:44 | Emergency (ER) | payer OTHER, SELFPAY ==
--- OUTSIDE RECORDS SUMMARY | 2023-07-22 14:49 | XMS REPORT | Continuity of Care Document ---
:1980 Author Organization [facility] t Address [address] [facility] [address] [place] [address] Care Team Providers Name Role Phone UNKNOWN, REFFERING Primary Care Physician Unavailable Sherman Collazo Attending Clinician Unavailable Rj Diez Attending Clinician Unavailable Rj Diez Attending Clinician Unavailable [email or web address] Attending Clinician Unavailable SEPIDEH PALMER Attending Clinician Unavailable Sepideh Palmer DO Attending Clinician MIGUEL A NATH Attending Clinician Unavailable Miguel A Nath MD Attending Clinician Doctor Unassigned, [place] Attending Clinician Unavailable GAGE REID Attending Clinician Unavailable Gage Reid MD Attending Clinician JYOTI PAGAN Attending Clinician Unavailable Ultrasound, Ang-Mfm Attending Clinician Unavailable Cheikh Campos MD Attending Clinician Fellow, Luiz [facility] Mfm Attending Clinician Unavailable Morro Savage MD Attending Clinician Olga Lidia Corral MD Attending Clinician Sanjana Sierra PA-C Attending Clinician Edson Emanuel Attending Clinician Edson CHAMBERS Attending Clinician Unavailable Faculty, Hood Yepez anjali Attending Clinician Unavailable Porter Mark MD Attending Clinician NORMA SIMONS M.D., NORMA Smith M.D. Attending Clinician Unavailable GAGE REID Admitting Clinician Unavailable Sherman Collazo Admitting Clinician Unavailable Rj Diez Admitting Clinician Unavailable [email or web address] Admitting Clinician Unavailable Gage Reid MD Admitting Clinician NORMA SIMONS M.D., NORMA Smith Admitting Clinician Nader recinos Payers Payer Name Policy Type Policy Number Effective Date Expiration Date Rosales may [facility]MERLY [facility] [id number] [address] [facility] MEDICAID 00:00:00 [facility] [id number] [facility] ([facility]) MEDICAID OF [place] [id number] 2020 00:00:00 Problems Condition Condition Condition Status Onset Resolution Last Treating Co mments Source Name Details Category Date Date Treatment Clinician Date 39 weeks 39 weeks Disease Active 2019-11 Unive rs gestation gestation 1-11 ity of of of 00:00: [place] 00 [facility] QT QT Disease Active 2019-11 Univers prolongati prolongati 1-11 it y of on on 00:00: [place] [address] Medical Branch Obesity Obesity Disease Active 2019-11 Univers (BMI (BMI 1-09 ity of 30-39.9) 30-39.9) 00:00: [place] 00 Medical Branch Insufficie Insufficie Disease Active 2019-11 U nivers nt nt 1-09 ity of 00:00: [place] care in care in 00 Medical third third Branch trimester trimester 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, disorder, 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 features Supervisio Supervisio Disease Active 2019- U nivers n of high n of high 5-14 ity of risk risk 00:00: [place] 00 [facility] in third in third Branch trimester trimester History of History of Disease Active 2020- U nivers cardiac cardiac 5-14 ity of arrest arrest 00:00: [place] [facility] Anxiety Anxiety Disease Active Univers disorder, disorder, 5-14 ity of unspecifie unspecifie [place] type d type Medical Branch History of History of Disease Active 2019- U nivers drug abuse drug abuse 5-14 it y of 00:00: [place] [facility] History of History of Disease Active U 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y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 [place] Previous Previous Disease Active Unive rs 5-14 ity of section section 00:00: [place] [facility] Medication Medication Disease Active U nivers exposure exposure 5-14 ity of during during 00:00: [place] first first Medical trimester trimester Bran ch of of Smoking Smoking Disease Active 2019- Univers 5-14 ity of 00:00: [place] [facility] Abdominal Abdominal Disease Active Uni vers pain, pain, 4-27 ity of epigastric epigastric [place] Allergies, Adverse Reactions, Alerts Allergy Allergy Status Severity Reaction(s) Onset Inactive Treating Comm ents Source Name Type Date Date Clinician morphine DA Active SV 2017- [facility] [place] morphine DA Active SV "HEART [facility] STOPPED" 2-20 [facility] 00:[facility] [place] MORPHINE DRUG Active Unknown-Cmnt 2010-11 Un gildardo INGREDI 0-05 ity of 00:00: [place] [facility] Morphine Propensi Active Unknown - 2010-11 Per Uni vers ty to See comments 0-05 patient ity of adverse 00:00: she went [place] reaction 00 into Medical s cardiac Branch arrest after receiving morphine at the hospital March 2011 morphine Drug Active [facility] morphine Drug Active [facility] morphine Drug Active [facility] morphine Drug Active [facility] morphine Drug Active [facility] morphine Drug Active [facility] morphine Drug Active [facility] morphine Drug Active [facility] morphine Drug Active [facility] morphine Drug Active [facility] morphine Drug Active [facility] morphine Drug Active [facility] morphine Drug Active [facility] Social History Social Habit Start Date Stop Date Quantity Comments Source ASSERTION 2019-12-22 University of 00:00:00 [facility] History of tobacco Cigarette Smoker University of use [facility] Alcohol intake 2023-05-01 2023-05-01 Current drinker Unive rsity of 00:00:00 00:00:00 of alcohol [facility] (finding) Branch Exposure to 2023-01-03 2023-01-13 Not sure University SARS-CoV-2 (event) 00:00:00 21:35:00 [facility] Tobacco use and 2020-03-15 2020-03-15 Smokeless Universit y of exposure 00:00:00 00:00:00 tobacco [facility] smoked 2020-03-15 2020-03-15 Univers ity of current (pack per 00:00:00 00:00:00 [facility] ) - Reported Branch Sex Ass[birth year] At [birth year] Universit y of 00:00:00 00:00:00 [facility] Smoking Status Start Date Stop Date Source Smokes tobacco daily 2020-03-15 00:00:00 Univers ity of [facility] Medications Ordered Filled Start Stop Current Ordering Indication Dosage Frequency Signature Comments Components Source Medication Medication Date Date Medication? Clinician (SIG) Name Name NaCl 0.9% 2022- No 1000mL at 999 Uni vers (NS) bolus 05-0130 mL/hr, ity of infusion 19:00: 19:10 1,000 mL, Rajeev as 1,000 mL 00 :00 IV Medical Infusion, Branch ONCE, 1 dose, On 05/01/23 at 1400, CHRISTY ondansetron 2022- No 4mg 4 mg, Slow Univers (ZOFRAN 05-01 IV Push, ity of (PF)) 19:00: 18:53 ONCE, 1 [place] injection 4 00 :00 dose, On Medi bertha mg Fri Branch 05/01/23 at 1400, CHRISTY cefTRIAXone 2022- No 1000mg 1,000 mg, Univers (ROCEPHIN) 05-0130 IV ity of 1,000 mg in 18:15: 18:43 Piggyback, [place] NaCl 0.9% 00 :00 ONCE, 1 Medical (NS) 100 mL dose, On Bran ch MINI-BAG Thu05/01/23 at 1315, Administer over 30 Minutes, 100 mL
Reas on for Anti-Infec tive: Documented Infection< br>Documen bhavya Infection Site: Urine<br&g t;Duration of Therapy: 7 days NaCl 0.9% 0 2022- No 1000mL at 999 Uni vers (NS) bolus 6-30 06-30 mL/hr, ity of infusion 17:30: 18:14 1,000 mL, Rajeev as 1,000 mL 00 :00 IV Medical Infusion, Branch ONCE, 1 dose, On Thu05/01/23 at 1230, CHRISTY ondansetron 0 Yes [id number] 4mg Take 1 Univers 4 mg 6-30 tablet by ity of disintegrat 00:00: mouth [place] ing tablet 00 every 8 Medica l (eight) Branch hours as needed for Nausea and Vomiting (N/V). sulfamethox 0 2022- Yes [id number] 1{tbl} Take 1 Univers azole-trime 6-30 07-06 tablet by it y of thoprim 00:00: 04:59 mouth [place] 800-160 mg 00 :00 every 12 Medic al per tablet (twelve) Branc h hours for 5 days. risperiDONE 2019-11 Yes 2mg Take 2 mg U nivers 2 mg tablet 1-12 by mouth ity of 01:27: daily. [address] SERTraline 2019-11 Yes 50mg Take 50 mg U nivers (ZOLOFT) 50 -12 by mouth ity of mg tablet 01:27: daily. [address] D5W-LR IV 2019-11 Yes 1000mL at 125 Univ ers infusion 1-12 mL/hr, IV ity of 1,000 mL 00:45: [place] CONTINUOUS Medical , Starting Branch Thu09/12/20 at 1845, Until Discontinu ed, Routine risperiDONE 2019-11 Yes 2mg Take 2 mg U nivers 2 mg tablet 1-11 by mouth ity of 19:27: daily. [address] SERTraline 2019-11 Yes 50mg Take 50 mg U nivers (ZOLOFT) 50 1-11 by mouth ity of mg tablet 19:27: daily. [address] risperiDONE 2019-11 Yes 2mg Take 2 mg U nivers 2 mg tablet 1-11 by mouth ity of 19:27: daily. [address] SERTraline 2019-11 Yes 50mg Take 50 mg U nivers (ZOLOFT) 50 1-11 by mouth ity of mg tablet 19:27: daily. [address] risperiDONE 2019-11 Yes 2mg Take 2 mg U nivers 2 mg tablet 1-11 by mouth ity of 19:27: daily. [address] SERTraline 2019-11 Yes 50mg Take 50 mg U nivers (ZOLOFT) 50 1-11 by mouth ity of mg tablet 19:27: daily. [address] risperiDONE 2019-11 Yes 2mg Take 2 mg U nivers 2 mg tablet 1-10 by mouth ity of 01:35: daily. [address] SERTraline 2019-11 Yes 50mg Take 50 mg U nivers (ZOLOFT) 50 1-10 by mouth ity of mg tablet 01:35: daily. [address] risperiDONE 2019-11 Yes 2mg Take 2 mg U nivers 2 mg tablet 1-10 by mouth ity of 01:35: daily. [address] SERTraline 2019-11 Yes 50mg Take 50 mg U nivers (ZOLOFT) 50 1-10 by mouth ity of mg tablet 01:35: daily. [address] risperiDONE 2019-11 Yes 2mg Take 2 mg U nivers 2 mg tablet 1-10 by mouth ity of 01:35: daily. [address] SERTraline 2019-11 Yes 50mg Take 50 mg U nivers (ZOLOFT) 50 1-10 by mouth ity of mg tablet 01:35: daily. [address] risperiDONE 2019-11 Yes 2mg Take 2 mg U nivers 2 mg tablet 1-10 by mouth ity of 01:35: daily. [address] SERTraline 2019-11 Yes 50mg Take 50 mg U nivers (ZOLOFT) 50 1-10 by mouth ity of mg tablet 01:35: daily. [address] risperiDONE 2019-11 Yes 2mg Take 2 mg U nivers 2 mg tablet 1-10 by mouth ity of 01:35: daily. [address] SERTraline 2019-11 Yes 50mg Take 50 mg U nivers (ZOLOFT) 50 1-10 by mouth ity of mg tablet 01:35: daily. [address] risperiDONE 2019- Yes 2mg Take 2 mg U nivers 2 mg tablet 1-10 by mouth ity of 01:35: daily. [address] SERTraline 2019-11 Yes 50mg Take 50 mg U nivers (ZOLOFT) 50 1-10 by mouth ity of mg tablet 01:35: daily. [address] risperiDONE 2019-11 Yes 2mg Take 2 mg U nivers 2 mg tablet 1-10 by mouth ity of 01:35: daily. [address] SERTraline 2019-11 Yes 50mg Take 50 mg U nivers (ZOLOFT) 50 1-10 by mouth ity of mg tablet 01:35: daily. [address] risperiDONE 2019-11 Yes 2mg Take 2 mg U nivers 2 mg tablet 1-10 by mouth ity of 01:35: daily. [address] SERTraline 2019-11 Yes 50mg Take 50 mg U nivers (ZOLOFT) 50 1-10 by mouth ity of mg tablet 01:35: daily. [address] risperiDONE 2019-11 Yes 2mg Take 2 mg U nivers 2 mg tablet 1-10 by mouth ity of 01:35: daily. [address] SERTraline 2019-11 Yes 50mg Take 50 mg U nivers (ZOLOFT) 50 1-10 by mouth ity of mg tablet 01:35: daily. [address] D5W-LR IV 2019-11 Yes 1000mL at 125 Univ ers infusion 1-10 mL/hr, IV ity of 1,000 mL 00:45: [place] CONTINUOUS Medical , Starting Branch 09/10/20 at 1845, Until Discontinu ed, Routine PNV 0 Yes [id number] Take 1 Univers 102-iron-fo 5-14 TAB-CAP/M2 it y of late 00:00: by mouth [place] 1-dss-dha 00 daily. Medical (VITAFOL Branch FE+, WITH DOCUSATE,) 90 mg iron-1 mg -50 mg-200 mg Cap PNV 2019-0 Yes [id number] Take 1 Univers 102-iron-fo 5-14 TAB-CAP/M2 it y of late 00:00: by mouth [place] 1-dss-dha 00 daily. Medical (VITAFOL Branch FE+, WITH DOCUSATE,) 90 mg iron-1 mg -50 mg-200 mg Cap PNV 2020-0 Yes [id number] Take 1 Univers 102-iron-fo 5-14 TAB-CAP/M2 it y of late 00:00: by mouth [address] 00 daily. Medical (VITAFOL Branch FE+, WITH DOCUSATE,) 90 mg iron-1 mg -50 mg-200 mg Cap PNV 2020-0 Yes [id number] Take 1 Univers 102-iron-fo 5-14 TAB-CAP/M2 it y of late 00:00: by mouth [address] 00 daily. Medical (VITAFOL Branch FE+, WITH DOCUSATE,) 90 mg iron-1 mg -50 mg-200 mg Cap PNV 2020-0 Yes [id number] Take 1 Univers 102-iron-fo 5-14 TAB-CAP/M2 it y of late 00:00: by mouth [address] 00 daily. Medical (VITAFOL Branch FE+, WITH DOCUSATE,) 90 mg iron-1 mg -50 mg-200 mg Cap PNV 2020-0 Yes [id number] Take 1 Univers 102-iron-fo 5-14 TAB-CAP/M2 it y of late 00:00: by mouth [address] 00 daily. Medical (VITAFOL Branch FE+, WITH DOCUSATE,) 90 mg iron-1 mg -50 mg-200 mg Cap PNV 2020-0 Yes [id number] Take 1 Univers 102-iron-fo 5-14 TAB-CAP/M2 it y of late 00:00: by mouth [address] 00 daily. Medical (VITAFOL Branch FE+, WITH DOCUSATE,) 90 mg iron-1 mg -50 mg-200 mg Cap PNV 2020-0 Yes [id number] Take 1 Univers 102-iron-fo 5-14 TAB-CAP/M2 it y of late 00:00: by mouth [address] 00 daily. Medical (VITAFOL Branch FE+, WITH DOCUSATE,) 90 mg iron-1 mg -50 mg-200 mg Cap PNV 2020-0 Yes [id number] Take 1 Univers 102-iron-fo 5-14 TAB-CAP/M2 it y of late 00:00: by mouth [address] 00 daily. Medical (VITAFOL Branch FE+, WITH DOCUSATE,) 90 mg iron-1 mg -50 mg-200 mg Cap PNV 2020-0 Yes [id number] Take 1 Univers 102-iron-fo 5-14 TAB-CAP/M2 it y of late 00:00: by mouth [address] 00 daily. Medical (VITAFOL Branch FE+, WITH DOCUSATE,) 90 mg iron-1 mg -50 mg-200 mg Cap PNV 2020-0 Yes [id number] Take 1 Univers 102-iron-fo 5-14 TAB-CAP/M2 it y of late 00:00: by mouth [address] 00 daily. Medical (VITAFOL Branch FE+, WITH DOCUSATE,) 90 mg iron-1 mg -50 mg-200 mg Cap PNV 2020-0 Yes [id number] Take 1 Univers 102-iron-fo 5-14 TAB-CAP/M2 it y of late 00:00: by mouth [address] 00 daily. Medical (VITAFOL Branch FE+, WITH DOCUSATE,) 90 mg iron-1 mg -50 mg-200 mg Cap PNV 2020-0 Yes [id number] Take 1 Univers 102-iron-fo 5-14 TAB-CAP/M2 it y of late 00:00: by mouth [address] 00 daily. Medical (VITAFOL Branch FE+, WITH DOCUSATE,) 90 mg iron-1 mg -50 mg-200 mg Cap PNV 2020-0 Yes [id number] Take 1 Univers 102-iron-fo 5-14 TAB-CAP/M2 it y of late 00:00: by mouth [address] 00 daily. Medical (VITAFOL Branch FE+, WITH DOCUSATE,) 90 mg iron-1 mg -50 mg-200 mg Cap PNV 2020-0 Yes [id number] Take 1 Univers 102-iron-fo 5-14 TAB-CAP/M2 it y of late 00:00: by mouth [place] [address] 00 daily. Medical (VITAFOL Branch FE+, WITH DOCUSATE,) 90 mg iron-1 mg -50 mg-200 mg Cap PNV 2020-0 Yes [id number] Take 1 Univers 102-iron-fo 5-14 TAB-CAP/M2 it y of late 00:00: by mouth [address] 00 daily. Medical (VITAFOL Branch FE+, WITH DOCUSATE,) 90 mg iron-1 mg -50 mg-200 mg Cap PNV 2020-0 Yes [id number] Take 1 Univers 102-iron-fo 5-14 TAB-CAP/M2 it y of late 00:00: by mouth [address] 00 daily. Medical (VITAFOL Branch FE+, WITH DOCUSATE,) 90 mg iron-1 mg -50 mg-200 mg Cap PNV 2020-0 Yes [id number] Take 1 Univers 102-iron-fo 5-14 TAB-CAP/M2 it y of late 00:00: by mouth [address] 00 daily. Medical (VITAFOL Branch FE+, WITH DOCUSATE,) 90 mg iron-1 mg -50 mg-200 mg Cap PNV 2020-0 Yes [id number] Take 1 Univers 102-iron-fo 5-14 TAB-CAP/M2 it y of late 00:00: by mouth [address] 00 daily. Medical (VITAFOL Branch FE+, WITH DOCUSATE,) 90 mg iron-1 mg -50 mg-200 mg Cap PNV 2020-0 Yes [id number] Take 1 Univers 102-iron-fo 5-14 TAB-CAP/M2 it y of late 00:00: by mouth [address] 00 daily. Medical (VITAFOL Branch FE+, WITH DOCUSATE,) 90 mg iron-1 mg -50 mg-200 mg Cap PNV 2020-0 Yes [id number] Take 1 Univers 102-iron-fo 5-14 TAB-CAP/M2 it y of late 00:00: by mouth [address] 00 daily. Medical (VITAFOL Branch FE+, WITH DOCUSATE,) 90 mg iron-1 mg -50 mg-200 mg Cap PNV 2020-0 Yes [id number] Take 1 Univers 102-iron-fo 5-14 TAB-CAP/M2 it y of late 00:00: by mouth [address] 00 daily. Medical (VITAFOL Branch FE+, WITH DOCUSATE,) 90 mg iron-1 mg -50 mg-200 mg Cap PNV 2020-0 Yes [id number] Take 1 Univers 102-iron-fo 5-14 TAB-CAP/M2 it [...] at Branch 2100, CHRISTY gabapentin 2019- No [id number] 300mg Take 1 Univers 300 mg 06-22 [...] al tablet times Branch daily. magnesium 2010-11 2020- No 800mg Take 2 Univ ers oxide 0-05 05-14 Tabs by ity of (MAG-OX 00:00: 00:00 mouth 3 [place] 400) 400 mg 00 :00 (three) Medic al tablet times Branch daily. FLUoxetine Yes 20mg Take 1 Cap U nivers (PROZAC) 20 8-05 by mouth ity of mg capsule 00:00: daily. [place] [address] Medical Branch clonazePAM 2010- Yes .5mg Take 1 Tab U nivers (KLONOPIN) 8-05 by mouth 3 ity of 0.5 mg 00:00: (three) [place] tablet 00 times Medical daily. Branch FLUoxetine Yes 20mg Take 1 Cap U nivers (PROZAC) 20 8-05 by mouth ity of mg capsule 00:00: daily. [place] [address] Medical Branch clonazePAM 2010- Yes .5mg Take 1 Tab U nivers (KLONOPIN) 8-05 by mouth 3 ity of 0.5 mg 00:00: (three) [place] tablet 00 times Medical daily. Branch FLUoxetine Yes 20mg Take 1 Cap U nivers (PROZAC) 20 8-05 by mouth ity of mg capsule 00:00: daily. [address] Branch clonazePAM Yes .5mg Take 1 Tab U nivers (KLONOPIN) 8-05 by mouth 3 ity of 0.5 mg 00:00: (three) [place] tablet 00 times Medical daily. Branch FLUoxetine Yes 20mg Take 1 Cap U nivers (PROZAC) 20 8-05 by mouth ity of mg capsule 00:00: daily. [place] [facility] FLUoxetine Yes 20mg Take 1 Cap U nivers (PROZAC) 20 8-05 by mouth ity of mg capsule 00:00: daily. [place] [facility] FLUoxetine Yes 20mg Take 1 Cap U nivers (PROZAC) 20 8-05 by mouth ity of mg capsule 00:00: daily. [place] [facility] FLUoxetine Yes 20mg Take 1 Cap U nivers (PROZAC) 20 8-05 by mouth ity of mg capsule 00:00: daily. [place] [facility] FLUoxetine Yes 20mg Take 1 Cap U nivers (PROZAC) 20 8-05 by mouth ity of mg capsule 00:00: daily. [address] FLUoxetine Yes 20mg Take 1 Cap U nivers (PROZAC) 20 8-05 by mouth ity of mg capsule 00:00: daily. [address] FLUoxetine Yes 20mg Take 1 Cap U nivers (PROZAC) 20 8-05 by mouth ity of mg capsule 00:00: daily. [address] clonazePAM Yes .5mg Take 1 Tab U nivers (KLONOPIN) 8-05 by mouth 3 ity of 0.5 mg 00:00: (three) [place] tablet 00 times Medical daily. Branch FLUoxetine Yes 20mg Take 1 Cap U nivers (PROZAC) 20 8-05 by mouth ity of mg capsule 00:00: daily. [address] clonazePAM Yes .5mg Take 1 Tab U nivers (KLONOPIN) 8-05 by mouth 3 ity of 0.5 mg 00:00: (three) [place] tablet 00 times Medical daily. Branch FLUoxetine Yes 20mg Take 1 Cap U nivers (PROZAC) 20 8-05 by mouth ity of mg capsule 00:00: daily. [place] [facility] Branch clonazePAM Yes .5mg Take 1 Tab U nivers (KLONOPIN) 8-05 by mouth 3 ity of 0.5 mg 00:00: (three) [place] tablet 00 times Medical daily. Branch FLUoxetine Yes 20mg Take 1 Cap U nivers (PROZAC) 20 8-05 by mouth ity of mg capsule 00:00: daily. [place] [facility] Branch clonazePAM Yes .5mg Take 1 [...] 20mg Take 1 Cap Univers (PROZAC) 20 8- 11-09 by mouth ity of mg capsule 00:00: 00:00 [place]. [place] :[place] Branch FLUoxetine 2020- No 20mg Take 1 Cap Univers (PROZAC) 20 8-05 11-09 by mouth ity of mg capsule 00:00: 00:00 [place]. [place] : [place] Branch FLUoxetine 2020- No 20mg Take 1 Cap Univers (PROZAC) 20 8-05 11-09 by mouth ity of mg capsule 00:00: 00:00 [place]. [place] 00 :[place] clonazePAM 2020- No .5mg Take 1 Tab Univers (KLONOPIN) 8-05 05-14 by mouth 3 it y of 0.5 mg 00:00: 00:00 (three) [place] tablet 00 :00 times Medical daily. Branch calcium Yes 500mg Take 1 Tab Uni vers carbonate 5-13 by mouth 3 ity of (OSCAL-500) 00:00: (three) Rajeev as 500 mg 00 times Medical (1,250 mg) daily with [facility] tablet meals. ferrous Yes 325mg Take [...] times Medical (1,250 mg) daily with [facility] tablet meals. ferrous Yes 325mg Take [...] times Medical (1,250 mg) daily with [facility] tablet meals. ferrous Yes 325mg Take [...] RX OR Branch GENERIC EQUIVALENT) tablet calcium 2019- No 500mg Take 1 Tab Un gildardo carbonate 5-13 05-14 by mouth 3 ity of (OSCAL-500) 00:00: 00:00 (three[place] 500 mg 00 :00 times Medical (1,250 mg) daily with [facility] tablet meals. ferrous 2019- No 325mg Take 1 Tab Un gildardo sulfate 325 5-13 05-14 by mouth 3 i ty of mg (65 mg 00:00: 00:00 (three[place] Iron) 00 :00 times Medical tablet daily with Branch meals. nicotine 2020- No 1{patch Apply 1 Un gildardo (NICODERM) 5-13 05-14 } Patch to ity of 21 mg/24 hr 00:00: 00:00 area(s) [place] patch 00 :00 every 24 Medical (twenty-fo Branch ur) hours. thiamine 2019- No 100mg Take 1 Tab U nivers (VITAMIN 5-13 05-14 by mouth ity of B1) 100 mg 00:00: 00:[place] tablet 00 :00 [place] Branch 2020- No 1{tbl} Take 1 Tab Univers vitamin 5-13 05-14 by mouth ity of w/FA 00:00: 00:00 daily. [place] ( 00 :00 Medical RX OR Branch GENERIC EQUIVALENT) tablet Vital Signs Vital Name Observation Time Observation Value Comments Source Height/Length 2020-07-25 Measured 11:28:48 Systolic blood 2023-05-01 148 mm[Hg] [facility] pressure 18:15:22 [facility] Diastolic blood 2023-05-01 73 mm[Hg] University o f pressure 18:15:22 [facility] Heart rate 2023-05-01 93 /min University of 18:15:22 [facility] Branch Respiratory rate 2023-05-01 16 /min University of 18:15:22 [facility] Branch Oxygen saturation 2023-05-01 100 /min University of in Arterial blood 18:15:22 [place] Medi bertha by Pulse oximetry Branch Body temperature 2023-05-01 36.44 Lien University of 16:33:00 [facility] Body weight 2023-05-01 90.719 kg University of 16:33:00 [facility] Branch BMI 2023-05-01 34.33 kg/m2 University of 16:33:00 [facility] Branch Systolic blood 2023-01-14 133 mm[Hg] University of pressure 02:37:00 [facility] Branch Diastolic blood 2023-01-14 65 mm[Hg] University o f pressure 02:37:00 [facility] Heart rate 2023-01-14 89 /min University of 02:37:00 [facility] Body temperature 2023-01-14 37.44 Lien University of 02:37:00 [facility] Respiratory rate 2023-01-14 18 /min University of 02:37:00 [facility] Body height 2023-01-14 162.6 cm University of 02:37:00 [facility] Body weight 2023-01-14 90.719 kg University of 02:37:00 [facility] BMI 2023-01-14 34.33 kg/m2 University of 02:37:00 [facility] Oxygen saturation 2023-01-14 96 /min University of in Arterial blood 02:37:00 [facility] bertha by Pulse oximetry Branch Systolic blood 2020-09-12 128 mm[Hg] University of pressure 23:45:00 [place] [facility] Diastolic blood 2020-09-12 66 mm[Hg] University o f pressure 23:45:00 [facility] Branch Heart rate 2020-09-12 97 /min University of 23:45:00 [facility] Body temperature 2020-09-12 36.61 Lien University of 23:45:00 [facility] Branch Oxygen saturation 2020-09-12 92 /min University of in Arterial blood 21:30:00 [facility] bertha by Pulse oximetry Branch Respiratory rate 2020-09-12 18 /min University of 21:30:00 [facility] Branch Body height 2020-09-12 162.6 cm University of 20:00:00 [facility] Body weight 2020-09-12 90.719 kg University of 20:00:00 [facility] BMI 2020-09-12 34.33 kg/m2 University of 20:00:00 [facility] Branch Systolic blood 2020-09-12 128 mm[Hg] University of pressure 23:45:00 [facility] Branch Diastolic blood 2020-09-12 66 mm[Hg] University o f pressure 23:45:00 [facility] Heart rate 2020-09-12 97 /min University of 23:45:00 [facility] Body temperature 2020-09-12 36.61 Lien University of 23:45:00 [facility] Branch Oxygen saturation 2020-09-12 92 /min University of in Arterial blood 21:30:00 [place] Medi bertha by Pulse oximetry Branch Respiratory rate 2020-09-12 18 /min University of 21:30:00 [facility] Body height 2020-09-12 162.6 cm University of 20:00:00 [facility] [facility] Body weight 2020-09-12 90.719 kg University of 20:00:00 [facility] BMI 2020-09-12 34.33 kg/m2 University of 20:00:00 [facility] Heart rate 2020-09-11 82 /min University of 00:51:00 [facility] Oxygen saturation 2020-09-11 98 /min University of in Arterial blood 00:51:00 [facility] bertha by Pulse oximetry Branch Systolic blood 2020-09-11 91 mm[Hg] University of pressure 00:30:00 [facility] Diastolic blood 2020-09-11 73 mm[Hg] University o f pressure 00:30:00 [facility] Body temperature 2020-09-10 36.5 Lien University of 23:46:00 [facility] Respiratory rate 2020-09-10 18 /min University of 23:46:00 [facility] Body height 2020-09-10 162.6 cm University of 23:46:00 [facility] Body weight 2020-09-10 90.992 kg University of 23:46:00 [facility] BMI 2020-09-10 34.43 kg/m2 University of 23:46:00 [facility] Systolic blood 2020-09-10 133 mm[Hg] University of pressure 22:35:00 [facility] Diastolic blood 2020-09-10 72 mm[Hg] University o f pressure 22:35:00 [facility] Heart rate 2020-09-10 104 /min University of 22:27:00 [facility] Body temperature 2020-09-10 36.72 Lien University of 22:27:00 [facility] Respiratory rate 2020-09-10 18 /min University of 22:27:00 [facility] Body height 2020-09-10 162.6 cm University of 22:27:00 [facility] Body weight 2020-09-10 90.992 kg University of 22:27:00 [facility] BMI 2020-09-10 34.43 kg/m2 University of 22:27:00 [facility] Height/Length 2021-11-19 162.56 cm Measured 12:39:49 Weight Dosing 2021-11-19 79.83 kg 12:39:49 Height/Length 2021-11-19 162.56 cm Measured 12:38:21 Weight Dosing 2021-11-19 79.83 kg 12:38:21 Height/Length 2021-11-19 162.56 cm Measured 12:37:11 Weight Dosing 2021-11-19 79.83 kg 12:37:11 Height/Length 2021-11-19 162.56 cm Measured 12:35:26 Weight Dosing 2021-11-19 79.83 kg 12:35:26 Height/Length 2021-11-19 162.56 cm Measured 12:33:07 Weight Dosing 2021-11-19 79.83 kg 12:33:07 Height/Length 2021-11-19 162.56 cm Measured 12:32:29 Weight Dosing 2021-11-19 79.83 kg 12:32:29 Height/Length 2021-11-19 162.56 cm Measured 12:32:16 Weight Dosing 2021-11-19 79.83 kg 12:32:16 Height/Length 2021-11-19 162.56 cm Measured 12:32:03 Weight Dosing 2021-11-19 79.83 kg 12:32:03 Height/Length 2021-11-19 162.56 cm Measured 12:31:20 Weight Dosing 2021-11-19 79.83 kg 12:31:20 Height/Length 2021-11-19 162.56 cm Measured 12:31:15 Weight Dosing 2021-11-19 79.83 kg 12:31:15 Systolic blood 2020-03-15 129 mm[Hg] University of pressure 13:32:00 [facility] Diastolic blood 2020-03-15 71 mm[Hg] University o f pressure 13:32:00 [facility] Heart rate 2020-03-15 85 /min University of 13:32:00 [facility] Body temperature 2020-03-15 36.78 Lien University of 13:32:00 [facility] Respiratory rate 2020-03-15 18 /min University of 13:32:00 [facility] Body height 2020-03-15 162.6 cm University of 13:32:00 [facility] Body weight 2020-03-15 78.926 kg University of 13:32:00 [facility] BMI 2020-03-15 29.87 kg/m2 University of 13:32:00 [facility] Systolic blood 2020-03-07 114 mm[Hg] University of pressure 01:00:00 [facility] Diastolic blood 2020-03-07 55 mm[Hg] University o f pressure 01:00:00 [facility] Heart rate 2020-03-07 99 /min University of 01:00:00 [facility] Body temperature 2020-03-07 36.67 Lien Romeo of 01:00:00 [facility] Respiratory rate 2020-03-07 20 /min University of 01:00:00 [facility] Oxygen saturation 2020-03-07 98 /min University of in Arterial blood 01:00:00 [facility] by Pulse oximetry [place] Body weight 2020-03-06 68.04 kg University of 23:00:00 [facility] BMI 2020-03-06 25.75 kg/m2 University of 23:00:00 [facility] Body height 2020-03-06 162.6 cm University of 22:57:00 [facility] Systolic blood 2019-06-23 146 mm[Hg] University of pressure 02:08:00 [facility] Diastolic blood 2019-06-23 89 mm[Hg] University o f pressure 02:08:00 [facility] Heart rate 2019-06-23 130 /min made aware University of 02:08:00 [facility] Body temperature 2019-06-23 36.72 Lien Romeo of 02:08:00 [facility] Respiratory rate 2019-06-23 18 /min University of 02:08:00 [facility] Oxygen saturation 2019-06-23 95 /min University of in Arterial blood 02:08:00 [place] [facility] by Pulse oximetry Branch Body weight 2019-06-23 68.04 kg University of 00:05:00 [facility] BMI 2019-06-23 25.75 kg/m2 [facility] 00:05:00 [facility] Systolic blood 2019-06-10 117 mm[Hg] University of pressure 19:43:00 [facility] Diastolic blood 2019-06-10 66 mm[Hg] Romeo o pressure 19:43:00 [facility] Heart rate 2019-06-10 110 /min [facility] 19:43:00 [facility] Body temperature 2019-06-10 37.06 Lien [facility] 19:43:00 [facility] Respiratory rate 2019-06-10 18 /min [facility] 19:43:00 [facility] Body weight 2019-06-10 63.504 kg [facility] 19:43:00 [facility] BMI 2019-06-10 24.03 kg/m2 [facility] 19:43:00 [facility] Oxygen saturation 2019-06-10 97 /min [facility] in Arterial blood 19:43:00 [facility] by Pulse oximetry [place] Procedures Procedure Date / Time Performing Clinician Source Performed URINALYSIS 2023-05-01 17:17:00 Sepideh Palmer [facility] POCT TEST 2023-05-01 17:17:00 Sepideh Palmer [facility] CREATINE KINASE 2023-05-01 16:44:00 Sepideh Palmer [facility] COMP. METABOLIC PANEL 2023-05-01 16:44:00 Sepideh Palmer [facility] ([id number]) [facility] CBC WITH DIFF 2023-05-01 16:44:00 Sepideh Palmer [facility] AUTHORIZATION FOR 2022-03-05 05:01:00 Doctor Unassigned, No [facility] RELEASE OF PHI Name Medical Branch [id number] 2020-09-13 00:00:00 [facility] ADC / LCC - DRUG SCREEN 2020-09-12 22:07:00 Gage Reid [facility] TRIAGE Medical Branch MAGNESIUM 2020-09-12 21:06:00 Gage Reid Romeo o f [facility] COMP. METABOLIC PANEL 2020-09-12 21:06:00 Gage Reid [facility] ([id number]) [facility] CBC WITH DIFF 2020-09-12 21:06:00 Gage Reid Romeo o [facility] ECHO ROUTINE W/DOPPLER 2020-09-12 20:43:53 Fabrice Rivera [facility] COLOR Medical Branch CONSENT/REFUSAL FOR 2020-09-12 19:55:29 [facility]igned, No [facility] Name Medical Branch ASSIGNMENT OF BENEFITS 2020-09-12 19:39:54 Doctor Unassigned, No [facility] CBC WITH DIFF 2020-09-11 00:30:00 Gage Reid Romeo o [facility] COVID-19 (ID NOW RAPID 2020-09-11 00:15:00 Gage Reid [facility] TESTING) Medical Branch CONSENT/REFUSAL FOR 2020-09-10 23:34:19 Doctor Unassigned, No [facility] Medical Branch ASSIGNMENT OF BENEFITS 2020-09-10 23:33:44 Doctor Unassigned, No [facility] GROUP B STREPTOCOCCUS BY 2020-09-10 22:45:00 Ggae Reid [facility] PCR Medical Branch L&D VISIT 2020-09-10 06:01:00 Doctor Unassigned, No [facility] (NON-DELIVERED) [facility] EXTERNAL PROVIDER 2020-04-18 05:01:00 Doctor Unassigned, No [facility] RECORDS [facility] Medical [place] ADC / LCC - DRUG SCREEN 2020-03-15 14:26:00 Gage Reid [facility] TRIAGE Medical Branch ASSIGNMENT OF BENEFITS 2020-03-15 13:18:47 Doctor Unassigned, No [facility] POCT URINALYSIS W/O 2020-03-15 00:00:00 Gage Reid [facility] SPECIFIC GRAVITY [facility] Branch POCT TEST 2020-03-07 00:38:00 Edson Chambers [facility] MAGNESIUM 2020-03-06 23:24:00 Edson Chambers [facility] COMP. METABOLIC PANEL 2020-03-06 23:24:00 Edson Chambers [facility] ([id number]) Medical Branch SALICYLATE 2020-03-06 23:24:00 Edson Chambers [facility] ETHANOL 2020-03-06 23:24:00 Edson Chambers [facility] o [facility] CBC WITH DIFFERENTIAL 2020-03-06 23:24:00 Edson Chambers [facility] sity [facility] URINALYSIS 2020-03-06 23:21:00 Edson Chambers [facility] o [facility] ADC / LCC - DRUG SCREEN 2020-03-06 23:21:[address] [facility] 2020-03-06 23:04:57 Edson Chambers Mary Romeo o [facility] NOTICE OF PRIVACY 2019-06-10 19:40:45 Doctor Unassigned, No [facility] Name [facility] CONSENT/REFUSAL FOR 2019-06-10 19:34:31 Doctor Unassigned, No [facility] DIAGNOSIS AND TREATMENT Name [facility] Encounters Start End Encounter Admission Attending Care Care Encounter Source Date/Time Date/Time Type Type Clinicians Facility Department ID 2021-08-31 Outpatient P [facility] R[facility] [id number] Univers 04:56:11 [facility] 2021-08-31 Outpatient P [facility] [id number] Univers 04:[facility] 2021-08-31 Outpatient P [facility] [id number] Univers 04:15:28 [facility] 2020-09-13 Inpatient JOSE ZaySherman [facility] [id number] [facility] 22:39:00 25 [facility] 2020-07-25 Inpatient Rj Diez [facility] PSY [id number] 10:46:00 Rj Diez - 923 [facility] 2023-07-20 2023-07-20 Outpatient [id number] PRIV PRIV [id number] [facility] 00:00:00 00:00:00 [id number] Medic al 2023-05-01 2023-05-01 Emergency X KAVON PALMER ERT [id number] Univers 11:30:00 14:17:00 SEPIDEH [facility] 2023-05-01 2023-05-01 Emergency Yvon LAKINJAL [id number] Univers 11:30:00 14:17:00 Sepideh LINK [id number] ity of [place] [id number] [facility] [id number] [address] 2023-01-13 2023-01-13 Emergency X [facility] ERT [id number] Univers 21:42:00 22:24:00 PAKILI ity of [facility] 2023-01-13 2023-01-13 Emergency [facility] [id number] Univers 21:42:00 22:24:00 [employer] MOLLYSUSANNAH [id number] ity of [place] 4.2.7.2.[address] [place] [id number] 2022-03-05 2022-03-05 Orders Doctor FABRICE [id number] Univers 00:00:00 00:00:00 Only Unassigned, ZA [id number] ity of [place] [facility] [id number] [facility] [phone] [address] 2021-09-23 2021-09-23 Outpatient R [facility] [id number] Univers 15:00:00 15:00:00 ity of [facility] 2021-08-21 2021-08-21 Outpatient R [facility] [id number] Univers 09:30:00 09:30:00 ity of [facility] 2020-09-12 2020-09-12 [facility] [id number] 13:34:00 18:35:00 Encounter Cam Thompson [id number] [place] [id number] [place] [id number] [facility] 2020-09-12 2020-09-12 [facility] [id number] Univers 13:34:00 18:35:00 Encounter Jewel Link [id number] ity of [place] [id number] [facility] [id number] [address] 2020-09-12 2020-09-12 Outpatient R GAGE REID [facility] [id number] Univers 09:45:00 09:45:00 ity of [facility] 2020-09-11 2020-09-11 Outpatient R GAGE REID [facility] [id number] Univers 15:45:00 15:45:00 ity of [facility] 2020-09-11 2020-09-11 Telephone Jeanette [facility] [id number] 00:00:00 00:00:00 Cam [place] [id number] [place] [id number] Professio [id number] [address] 2020-09-11 2020-09-11 Telephone [facility] [id number] Univers 00:00:00 00:00:00 Cam [place] [id number] i ty of [id number] [phone] Ak dical nal [address] [place] [address] 2020-09-11 2020-09-11 Case [facility] [id number] Univers 00:00:00 00:00:00 Management Cam [place] [id number] ity of [id number] [id number] Ak dical nal [address] [place] [address] 2020-09-10 2020-09-10 [facility] [id number] Univers 17:30:00 19:10:00 Encounter Cam [place] [id number] ity of [place] [id number] [phone] [facility] [address] [place] 2020-09-10 2020-09-10 Routine Jeanette [facility] [id number] Univers 16:09:56 17:20:04 Cam [place] [id number] ity of Visit [id number] [place] [phone] Ak dical nal [address] [place] [address] 2020-09-10 2020-09-10 Outpatient R GAGE REID [facility] [id number] Univers 16:00:00 16:00:00 ity [facility] 2020-09-03 2020-09-03 Outpatient R GAGE REID [facility] [id number] Univers 13:00:00 13:00:00 ity [facility] 2020-08-31 2020-08-31 Outpatient R LATASHA [facility] [id number] Univers 08:30:00 08:30:00 JYOTI ity [facility] 2020-08-21 2020-08-21 Outpatient R ADARCHANA [facility] [id number] Univers 10:30: 10:30:00 [facility] 2020-08-14 2020-08-14 Outpatient R LATASHA [facility] [id number] Univers 10:30: 10:30:00 [facility] 2020-08-13 2020-08-13 Outpatient R JEANETTE GAGE [facility] [id number] Univers 11:00:00 11:00:00 ity [facility] 2020-07-25 2020-08-02 Inpatient 1 Rj Diez [facility] PSY [id number] St. 10:07:00 13:01:00 Rj Diez [facility] 2020-07-20 2020-07-20 Outpatient R LATASHA [facility] [id number] Univers 08:30:00 08:30:00 JYOTI ity [facility] 2020-07-17 2020-07-17 Outpatient R LATASHA [facility] [id number] Univers 13:30:00 13:30:00 JYOTI ity [facility] 2020-07-12 2020-07-12 Outpatient R GGAE REID [facility] [id number] Univers 14:30:00 14:30:00 ity [facility] 2020-06-19 2020-06-19 Outpatient R GAGE REID [facility] [id number] Univers 14:30:00 14:30:00 ity [facility] 2020-04-30 2020-04-30 Outpatient R [facility] [id number] Univers 08:45:00 08:45:00 ity [facility] 2020-04-26 2020-04-26 Switch Repairer Ultrasound, [facility] 1.2 .840.114 [id number] Univers 10:31:59 11:51:31 Visit Cheikh Campos [employer] [id number] 0 ity of REGIONAL [id number] Rajeev as MATERNAL [phone] Med ical & CHILD [address] [place] [address] 2020-04-26 2020-04-26 Outpatient P [facility] [id number] Univers 10:15:00 10:15:00 ity of [facility] 2020-04-26 2020-04-26 Letter Doctor FABRICE 1.2.840.114 [id number] Univers 00:00:00 00:00:00 (Out) Unassigned, ZA [id number] ity of [place] [facility] [id number] Rajeev as [phone] [facility] [address] [place] 2020-04-20 2020-04-20 Outpatient R [facility] [id number] Univers 15:00:00 15:00:00 ity of [facility] 2020-04-20 2020-04-20 Telemedici Fellow, Luiz [facility] U NIVERSIT 1.2.840.114 [id number] Univers 08:18:30 08:33:30 ne Visit Morro Savage [facility] [id number] ity of [facility] [id number] [place] [phone] [facility] [address] [place] 2020-04-18 2020-04-18 Orders Doctor FABRICE 1.2.840.114 [id number] Univers 00:00:00 00:00:00 Only Unassigned, ZA [id number] ity of [place] [facility] [id number] Rajeev as [phone] [facility] [address] 2020-04-12 2020-04-12 Outpatient R GAGE REID [facility] [id number] Univers 08:45:00 08:45:00 ity [facility] 2020-04-06 2020-04-06 Telemedici Fellow, Luiz [facility] U NIVERSIT 1.2.840.114 [id number] Univers 08:00:00 08:30:00 ne Visit Olga Lidia Corral [id number] ity of CL[id number] [id number] [facility] [address] [place] 2020-04-06 2020-04-06 Outpatient R [facility] [id number] Univers 08:00:00 08:00:00 ity of [facility] 2020-03-30 2020-03-30 [facility] [id number] Univers 00:00:00 00:00:00 Management Sanjana Link [id number] ity of [place].2.[place] [phone] [address] 2020-03-20 2020-03-20 Refill Gage Reid [facility] [id number] Univers 00:00:00 00:00:00 Jewel Link [id number] i ty of [id number] [id number] [address] 2020-03-15 2020-03-15 Initial [facility] [id number] Univers 08:20:24 09:19:11 Jewel Link 350.1.13.10 ity of Visit [place] 4[place].7.2.[place] [id number] [address] 2020-03-15 2020-03-15 Outpatient R JEANETTE GAGE [facility] [id number] Univers 08:00:00 08:00:00 ity of [facility] 2020-03-15 2020-03-15 Orders Doctor FABRICE 1.2.840.114 [id number] Univers 00:00:00 00:00:00 Only Unassigned, ZA 350.1.13.10 ity of [place] [facility] 4.2.7.2.686 Rajeev as [id number] [address] 2020-03-15 2020-03-15 Telephone Gage Reid [facility] 1.2.840.114 [id number] Univers 00:00:00 00:00:00 Cam Thompson 350.1.13.10 i ty of [id number] [phone] Ak dical [facility] [address] 2020-03-06 2020-03-06 Emergency Edson Chambers [facility] 1.2.840.114 [id number] Univers 17:55:54 22:34:00 Mary Link 350.1.13.10 i ty of [place] [id number] [id number] [place] 0[address]14 [place] 2020-03-06 2020-03-06 Emergency X Edson CHAMBERS [facility] ERT [id number] Univers 17:55:54 17:55:54 ity of [facility] 2020-02-01 2020-02-01 Telephone Faculty, [facility] 1.2.840.114 [id number] Univers 00:00:00 00:00:00 Ang Rmchp [employer] [id number] ity of [facility] [id number] Rajeev as MATERNAL [phone] Med ical & CHILD [address] [place] [address] 2019-06-22 2019-06-22 Emergency Deedee, TRAUMA [id number] Univers 19:07:21 21:13:00 Porter BRANNON 350.1.13.10 [place] [id number] [facility] [address] [place] 2019-06-10 2019-06-10 Emergency [facility] 1.2.840.114 [id number] Univers 14:44:46 15:34:00 Sepideh Link 350.1.13.10 ity of [place] 4.2.7.2.[place] [phone] [place] 020114 [place] 2019-06-10 2019-06-10 Orders Doctor FABRICE 1.2.840.114 [id number] Univers 00:00:00 00:00:00 Only Unassigned, ZA 350.1.13.10 ity of [place] [facility] [id number] Rajeev as [phone] [address] Results Test Description Test Time Test Comments Results Result Comments Source POCT TEST 2023-05-01 17:17:00 Test Item Value Reference Range Interpretation Comme nts POCT PREG (test code = 1605) Negative On board controls acceptable with C Line (test code = 3574) Yes POCT PREG LOT # (test code = 3575) HCG [id number] POCT PREG TEST DATE (test code = 3576) 08/07/2024 Lab Interpretation (test code = 82602-7) [facility] [id number] 07:10:00 Test Item Value Reference Range Interpretation Comments WHITE BLOOD CELL (test code = WBC) [...] 27-35 N MEAN CELL HGB CONCETRATION (test 31.0 gm/dL 32.2-34.1 L code = MCHC) RED CELL DISTRIBUTION WIDTH (test 14.6 % 12.4-16.5 N code = RDW) PLATELET COUNT (test code = PLT) 325 K/mm3 133-385 N MEAN PLATELET VOLUME (test code = 9.8 fl 9.1-12.7 N MPV) NEUTROPHIL % (test code = NT%) 75.4 [...] 0.0 K/mm3 RBC MORPHOLOGY REQUIRED (test code NORMAL NORMAL = RBCM) PLATELET MORPHOLOGY REQUIRED (test NORMAL NORMAL code = PLTMR) Comments to Manager Sql: TO BE COLLECTED BY LABRUBELLA [id number] 14:15:00 Test Item Value Reference Range Interpretation Comments RUBELLA SCREEN 73.8 IUnit/ml Results >10. 0IUnits/ml (test code = are considered positive RUBSC) inaccordance wi th the CLSI guidelines and based on the [employer] S tandard for Anti-Rubell a serum as anindicator of immune status and a br eakpoint to detect mostseropositiv e persons. Comments to Manager Sql: please use blood alreadyin the labHGB [id number] 07:26:00 Test Item Value Reference Range Interpretation Comments HEMOGLOBIN (test code = HGB) 10.9 g/dL 10.7-13.9 N HEMATOCRIT (test code = HCT) 34.6 % 32.1-42.1 N AG HEPATITIS B [id number] 04:56:00 Test Item Value Reference Range Interpretation Comments AG HEPATITIS B SURFACE (test code NONREACTIVE NONREACTIVE = HBSAG) IS CONSENT FORM SIGNED FOR HIV TESTING? YAB HEPATITIS C [id number] 04:56:00 Test Item Value Reference Range Interpretation Comments AB HEPATITIS C (test code = NONREACTIVE NONREACTIVE HCVAB) SIGNAL TO CUTOFF (test code = 0.10 <0.80 N CUTOFF) IS CONSENT FORM SIGNED FOR HIV TESTING? YAB [id number] 04:56:00 Test Item Value Reference Range Interpretation Comments AB TREPONEMA (test code = TREPAB) NONREACTIVE NONREACTIVE IS CONSENT FORM SIGNED FOR HIV TESTING? YAB HIV 1 04:56:00 Test Item Value Reference Range Interpretation Comments AB HIV 1 2 (test code = [id number]) NONREACTIVE IS CONSENT FORM SIGNED FOR HIV TESTING? YAG HEPATITIS B [id number] 04:56:00 Test Item Value Reference Range Interpretation Comments AG HEPATITIS B SURFACE (test code NONREACTIVE NONREACTIVE = HBSAG) IS CONSENT FORM SIGNED FOR HIV TESTING? YAB HEPATITIS C [id number] 04:56:00 Test Item Value Reference Range Interpretation Comments AB HEPATITIS C (test code = NONREACTIVE NONREACTIVE HCVAB) SIGNAL TO CUTOFF (test code = 0.10 <0.80 N CUTOFF) IS CONSENT FORM SIGNED FOR HIV TESTING? YAB [id number] 04:56:00 Test Item Value Reference Range Interpretation Comments AB TREPONEMA (test code = TREPAB) NONREACTIVE NONREACTIVE IS CONSENT FORM SIGNED FOR HIV TESTING? YAB HIV 1 04:56:00 Test Item Value Reference Range Interpretation Comments AB HIV 1 2 (test NONREACTIVE NONREACTIVE Done by [facility] code = [id number]) 4th Gen HIV Ag/Ab Combo Screen IS CONSENT FORM SIGNED FOR HIV TESTING? YAG HEPATITIS B [id number] 04:41:00 Test Item Value Reference Range Interpretation Comments AG HEPATITIS B SURFACE (test code NONREACTIVE NONREACTIVE = HBSAG) IS CONSENT FORM SIGNED FOR HIV TESTING? JAMES HEPATITIS C [id number] 04:41:00 Test Item Value Reference Range Interpretation Comments AB HEPATITIS C (test code = HCVAB) NONREACTIVE SIGNAL TO CUTOFF (test code = CUTOFF) <0.80 IS CONSENT FORM SIGNED FOR HIV TESTING? YAB [id number] 04:41:00 Test Item Value Reference Range Interpretation Comments AB TREPONEMA (test code = TREPAB) NONREACTIVE NONREACTIVE IS CONSENT FORM SIGNED FOR HIV TESTING? YAB HIV 1 04:41:00 Test Item Value Reference Range Interpretation Comments AB HIV 1 2 (test code = RNY46PK) NONREACTIVE IS CONSENT FORM SIGNED FOR HIV TESTING? YCOMPREHENSIVE METABOLIC [id number] 02:39:00 Test Item Value Reference Range Interpretation [...] code = ALKP) COVID 19 Asymptomatic IH [id number] 00:09:00 Test Item Value Reference Range Interpretation Comments COVID 19 NEGATIVE NEGATIVE This test has b een Asymptomatic IH AG authorize d only for the (test code = detection ofpro teins from COVNONPUIAG) SARS-CoV-2, not for any other viruses orpathogens. Ne gative results should be treated as presumptive andconfirmed [...] and/o r diagnosis of CO VID-19 under Agniyia85 4(b)(1) of the Act, 21 U.S .C. 360bbb-3(b)(1), unless theauthorizatio n is terminated or r evoked sooner. CBC W/AUTO [id number] 00:00:00 Test Item Value Reference Range Interpretation Comments WHITE BLOOD CELL (test 20.9 K/mm3 6.6-12.1 HH RESUL TS CALLED TO code = WBC) helene.READ BACK & CONFIRMED? yes. BY NONAMR 3715. RED BLOOD CELL (test 3.61 M/mm3 3.45-5.01 [...] NORMAL NORMAL REQUIRED (test code = PLTMR) ADC / LCC - DRUG SCREEN [id number] 22:29:00 Test Item Value Reference Range Interpretation Comments BENZO U (test code = Presumptive Negative A 1151530422) Positive ARNOLD U (test code = Negative Negative 4454430571) AMPHET (test code = Negative Negative 5561912743) THC (test code = Presumptive Negative A Confirmatio n of 8436636340) Positive Presumptive Positive THC result requires physician order . METHADONE (test code Negative Negative = 1466696555) Meth U (test code = Negative Negative 4160560511) OPIATES (test code = Presumptive Negative A 2241185979) Positive Cocaine Metabolite Negative Negative (test code = 0797274702) PROPOXY (test code = Negative Negative 3303276423) Tric U (test code = Negative Negative 5319736383) PCP (test code = Negative Negative 4861854679) OXYCOD (test code = Negative Negative 2495858240) YAMIL (test code = Urine Drug Cutoff [...] testing). Lab Interpretation Abnormal (test code = 86690-0) [facility] 21:50:00 Test Item Value Reference Range Interpretation Comments NA (test code = 133 mmol/L 135-145 L 5243450562) K (test code = 3.8 mmol/L 3.5-5 9596843837) CL (test code = 106 mmol/L 98-108 5441064657) CO2 TOTAL (test code = 23 mmol/L 23-31 4794463060) AGAP (test code = 2-16 2089589336) BUN (test code = 10 mg/dL 7-23 9291550997) GLUCOSE (test code = 106 mg/dL 70-110 9401201151) CREATININE (test code = 0.53 mg/dL 0.5-1.04 5574777706) TOTAL BILI (test code = 0.3 mg/dL 0.1-1.3 1330356088) CALCIUM (test code = 8.3 mg/dL 8.6-10.6 L 5203414751) T PROTEIN (test code = 6.0 g/dL 6.3-8.2 L 5723767950) ALBUMIN (test code = 3.1 g/dL 3.5-5 L 7937101285) ALK PHOS (test code = 185 U/L 34-122 H 9199542351) ALTv (test code = 15 U/L 5-35 1742-6) AST(SGOT) (test code = 24 U/L 13-40 9904997121) eGFR Calculation mL/min/1.73m2 (Non-) (test code = 7019564325) eGFR Calculation mL/min/1.73m2 () (test code = 6810383144) YAMIL (test code = YAMIL) Association of [...] tests). Lab Interpretation Abnormal (test code = 48586-1) [facility] Test Item Value Reference Range Interpretation Comments MAGNESIUM (test code = 3724358541) 1.8 mg/dL 1.7-2.4 Lab Interpretation (test code = Normal 56622-8) [facility] WITH [id number] 21:37:00 Test Item Value Reference Range Interpretation [...] RDW-SD (test code = 49.1 fL 39-49.9 20754-9) RDW-CV (test code = 14.3 % 12-15.5 788-0) PLT (test code = See_Comment [Automated 777-3) message] The system which generated this result transmit bhavya reference range : 166 - 358 10*3/ ?L. The reference range was not u sed to interpret th is result as normal/abnormal . MPV (test code = 10.0 fL 9.5-12.9 43078-0) NRBC/100 WBC (test See_Comment [Automat ed code = 1953439606) message] The system which generated this result transmit bhavya reference range : 0.0 - 10.0 /100 WBCs. The reference range was not used to interpret this result as normal/abnormal . NRBC x10^3 (test code <0.01 See_Comment [Auto mated = 8431310410) message] The system which generated this result transmit bhavya reference range : 10*3/?L. The reference range was not used to interpret this result as normal/abnormal . GRAN MAT (NEUT) % 77.1 % (test code = 770-8) IMM GRAN % (test code 1.00 % = 9493490545) LYMPH % (test code = 15.4 % 736-9) MONO % (test code = 5.1 % 5905-5) EOS % (test code = 1.1 % 713-8) BASO % (test code = 0.3 % 706-2) GRAN MAT x10^3(ANC) 11.59 10*3/uL 1.88-7.09 H (test code = 7551959727) IMM GRAN x10^3 (test 0.15 10*3/uL 0-0.06 H code = 4481278043) LYMPH x10^3 (test code 2.32 10*3/uL 1.32-3.29 = 731-0) MONO x10^3 (test code 0.76 10*3/uL 0.33-0.92 = 742-7) EOS x10^3 (test code = 0.17 10*3/uL 0.03-0.39 711-2) BASO x10^3 (test code 0.05 10*3/uL 0.01-0.07 = 704-7) Lab Interpretation Abnormal (test code = 71975-2) [facility]PTOCOCCUS BY [id number] 14:02:00 Test Item Value Reference Range Interpretation Comments Group B Streptococcus by PCR (test Negative Negative code = 55573-7) Lab Interpretation (test code = Normal 20316-8) [facility] (ID NOW RAPID TESTING)2020-09-11 00:51:00 Test Item Value Reference Range Interpretation Comments SARS-CoV-2 Rapid ID NOW Not Detected Not Detected (test code = 83907-3) YAMIL (test code = YAMIL) ID NOW COVID-19 Assay is an isothermal nucleic acid amplification test intended for the qualitative detection of nucleic acid from SARS-CoV-2 viral RNA in nasopharyngeal ([employer] NATURALIST) specimens. It is used under Emergency Use [...] indicated. Lab Interpretation Normal (test code = 98016-5) [facility] WITH [id number] 00:50:00 Test Item Value Reference Range Interpretation [...] (test code = 50.4 fL 39-49.9 H 83936-9) RDW-CV (test code = 14.5 % 12-15.5 788-0) PLT (test code = See_Comment [Automated 777-3) message] The sy stem which generated this result transmitted reference range : 166 - 358 10*3/ ?L. The reference r miguelina was not used to interpret this result as normal/abnormal . MPV (test code = 9.9 fL 9.5-12.9 48817-0) NRBC/100 WBC (test See_Comment [Automat ed code = 5867070472) message] The system which generated this result transmitted reference range : 0.0 - 10.0 /100 WBCs. The refer ence range was not u sed to interpret th is result as normal/abnormal . NRBC x10^3 (test code <0.01 See_Comment [Auto mated = 1184947800) message] The s ystem which generated this result transmitted reference range : 10*3/?L. The reference range was not used to interpret this result as normal/abnormal . GRAN MAT (NEUT) % 76.4 % (test code = 770-8) IMM GRAN % (test code 0.90 % = 4634661180) LYMPH % (test code = 16.0 % 736-9) MONO % (test code = 5.2 % 5905-5) EOS % (test code = 1.3 % 713-8) BASO % (test code = 0.2 % 706-2) GRAN MAT x10^3(ANC) 9.39 10*3/uL 1.88-7.09 H (test code = 7893481713) IMM GRAN x10^3 (test 0.11 10*3/uL 0-0.06 H code = 7208107628) LYMPH x10^3 (test code 1.97 10*3/uL 1.32-3.29 = 731-0) MONO x10^3 (test code 0.64 10*3/uL 0.33-0.92 = 742-7) EOS x10^3 (test code = 0.16 10*3/uL 0.03-0.39 711-2) BASO x10^3 (test code 0.03 10*3/uL 0.01-0.07 = 704-7) Lab Interpretation Abnormal (test code = 74375-4) [facility] HospitalLactate Ljfzhpggmdyav5171-40-11 08:28:44 Test Item Value Reference Range Interpretation Comments LDH (test code = LDH) 166 U/L 120-246 Comprehensive Metabolic Agsnl5217-12-36 08:16:47 Test Item Value Reference Range Interpretation [...] = Lipemia) 0 g/dL 1-2 Comprehensive Metabolic [id number] 08:16:47 Test Item Value Reference Range Interpretation [...] ag e have not been validated by [facility] MDRD study and should be interpreted [...] ag e have not been validated by [facility] MDRD study and should be interpreted [...] = 0 g/dL 1-2 Lipemia) Comprehensive Metabolic [id number] 08:16:47 Test Item Value Reference Range Interpretation [...] ag e have not been validated by [facility] MDRD study and should be interpreted [...] account, if the information is provided. If e race is not provided, and t he patient is -Amy n, multiply by 1.2 12. If sex is not provided, and t he patient is fema le, multiply by 0.7 42. Results for pat ients <18 years of ag e have not been validated by [facility] MDRD study and should be interpreted [...] g/dL 1-2 Lipemia) Complete Blood Count without Iklh1810-62-64 08:09:40 Test Item Value Reference Range Interpretation [...] = NRBC Abs) 0.00 x10 N Creatinine [id number] 15:39:13 Test Item Value Reference Range Interpretation Comments U Creatinine (test 89.1 mg/dL N Reference ranges have code = U Creatinine) not bee n established for this assay. Protein Alphi4722-18-52 15:39:13 Test Item Value Reference Range Interpretation Comments U Protein (test code = U Protein) 10.4 mg/dL 1.0-14.0 Complete Blood Count without Mgzu4513-32-98 06:39:12 Test Item Value Reference Range Interpretation [...] x10 N US OB Greater Than 14 Uttxk4588-96-16 19:21:42Patient: MARTINE LENTZ Date/Time07/26/2020 17:29 CDTReason for Examper md order;Other (please specify)ReportOB ULTRASOUND LIMITEDLocation: [id number] HISTORY: Confirm pregnancyLMP gest.age by LMP 32 weeks 1 day YESSY by LMP September 19, 2020Gestational Age by ultrasound today 32 weeks 3 days with YESSY September 17, 2020TECHNIQUE:Realtime grayscale, color and spectral or M-Mode Doppler [...] BPD 0.7 normal range 0.71 to 0.87AFI 27cm normalEstimated Weight 1799 g equal to 3 lbs. 15 oz.Placenta posterior grade 1 in appearance without abruption or previa.Cervix not seen wellMaternal adnexa not seen due to the enlarged graviduterusFetal presentation VertexFETAL ANATOMY:There is suboptimal visualization of the intracranial st ructures, face. gender not examined. Four-chamber heart view is suboptimal. The patient terminated the exam early.IMPRESSION:Wetzel live IUP of 32 weeks 3 days. No abnormalities demonstrated. Patient terminated the exam early. Final Dictated by: MD De La Rosa Maria VDictated DT/TM: 07/26/2020 7:17 pmSigned by: MD De La Rosa Maria VSigned (Electronic Signature): 07/26/2020 7:21 pmBeta HCG Bjujihqtnjot8816-16-10 14:42:56 Test Item Value Reference Range Interpretation Comments HCG, Beta Quantitative 93436.1 mIU/mL N 17- 54 (test code = HCG, Beta (Non- )?41 Quantitative) (Post-menopaus al) RPR Hlukyyxmwls7988-11-10 12:50:28 Test Item Value Reference Range Interpretation Comments RPR Qual (test code = RPR Qual) Non-Reactive Non-Reactive Reactive Control (test code = Reactive Reactive Control) Weak Reactive Control (test Weak Reactive code = Weak Reactive Control) Non-Reactive Control (test code Non-Reactive = Non-Reactive Control) Lot # (test code = Lot #) [id number] N Expiration Dt (test code = 08-01-2021 N Expiration Dt) Lipid Upmey0986-15-24 07:58:23 Test Item Value Reference Range Interpretation [...] LDL/HDL Ratio=L DL Calc/HDL Chol Thyroid Stimulating Mhvxhzn0416-43-19 07:58:23 Test Item Value Reference Range Interpretation Comments TSH (test code = TSH) 1.312 mcIU/mL 0.550-4.780 Hemoglobin [id number] 07:54:16 Test Item Value Reference Range Interpretation Comments Hemoglobin A1c (test code 5.1 % 4.0-5.8 Di abetic >=6.5 = Hemoglobin A1c) %Prediabet es 5.7-6.4 %Normal <5.7 % ADC / LCC - DRUG SCREEN [id number] 22:40:00 Test Item Value Reference Range Interpretation Comments BENZO U (test code = Negative Negative 9932877969) ARNOLD U (test code = Negative Negative 5701203018) AMPHET (test code = Negative Negative 4864760201) THC (test code = Negative Negative 3040268854) METHADONE (test code = Negative Negative 9581331341) Meth U (test code = Negative Negative 5762543949) OPIATES (test code = Negative Negative 9101746607) Cocaine Metabolite (test Negative Negative code = 8658844640) PROPOXY (test code = Negative Negative 6745714573) Tric U (test code = Negative Negative 9738821793) PCP (test code = Negative Negative 3158588237) OXYCOD (test code = Negative Negative 2914657591) YAMIL (test code = YAMIL) Urine Drug [...] testing). Lab Interpretation (test Normal code = 66913-3) [facility] W/O SPECIFIC [id number] 14:00:00 Test Item Value Reference Range Interpretation [...] code = 3257) N/A Negative - Negative [facility]COMP[facility] METABOLIC PANEL (26495)2020-03-07 00:39:00 Test Item Value Reference Range Interpretation Comments NA (test code = 139 mmol/L 135-145 7239615900) K (test code = 3.9 mmol/L 3.5-5 2606104740) CL (test code = 108 mmol/L 98-108 1810707564) CO2 TOTAL (test code = 22 mmol/L 23-31 L 8694400672) AGAP (test code = 2-16 3656547813) BUN (test code = 5 mg/dL 7-23 L 6954876273) GLUCOSE (test code = 103 mg/dL 70-110 4262627263) CREATININE (test code = 0.44 mg/dL 0.5-1.04 L 0951123503) TOTAL BILI (test code = <0.1 0.1-1.1 L 8007924903) CALCIUM (test code = 9.7 mg/dL 8.6-10.6 9696965134) T PROTEIN (test code = 6.2 g/dL 6.3-8.2 L 5071423028) ALBUMIN (test code = 3.6 g/dL 3.5-5 2012512578) ALK PHOS (test code = 56 U/L 34-122 2848821296) ALTv (test code = 10 U/L 5-35 1742-6) AST(SGOT) (test code = 20 U/L 13-40 1733202629) eGFR Calculation mL/min/1.73m2 (Non-) (test code = 6710008336) eGFR Calculation mL/min/1.73m2 () (test code = 0507803167) YAMIL (test code = YAMIL) Association of [...] tests). Lab Interpretation Abnormal (test code = 13308-5) [facility] HospitalACETAMINOPHEN2020-05-06 00:39:00 Test Item Value Reference Range Interpretation Comments ACETAMINOP (test code = <10.0 10-30 L 8704488396) YAMIL (test code = YAMIL) Toxic: Greater than 200 ug/mL @ 4 hour post ingestion or greater than 50 ug/mL @ 12 hour post ingestion Lab Interpretation (test Abnormal code = 21647-0) [facility] HospitalSALICYLATE2020-05-06 00:39:00 Test Item Value Reference Range Interpretation Comments SALICYLATE (test code <10 mg/L = 4740367278) YAMIL (test code = YAMIL) Therapeutic Range: ? Analgesic and Antipyretic Use ? 20-100 mg/L ? ? Anti-Inflammatory Use ? 100-250 mg/L Toxic Range: ? Greater than 300 mg/L [facility]PO[facility] [id number] 00:38:00 Test Item Value Reference Range Interpretation Comments POCT PREG (test code = 1605) positive On board controls acceptable with present C Line (test code = 3574) POCT PREG LOT # (test code = 3575) [id number] POCT PREG TEST DATE (test 06-01-2021 code = 3576) Lab Interpretation (test code = Normal 39843-9) [facility] HospitalETHANOL2020-05-06 00:37:00 Test Item Value Reference Range Interpretation Comments ALCOHOL (test code = 88 mg/dL 4435191705) YAMIL (test code = YAMIL) <10 Byadejex25-444 Toxic>100 Depression of MECHANICAL ASSEMBLER>400 Fatalities Reported [facility]MAG[facility]2020-05-06 00:36:00 Test Item Value Reference Range Interpretation Comments MAGNESIUM (test code = 2232693016) 1.6 mg/dL 1.7-2.4 L Lab Interpretation (test code = Abnormal 91666-5) [facility]URINALYSIS2020-05-06 00:15:00 Test Item Value Reference Range Interpretation Comments APPEARANCE (test code = Clear Clear 1409972640) COLOR (test code = Yellow Yellow 8378258798) PH (test code = 4.8-8.0 3726852507) SP GRAVITY (test code = 1.003-1.030 6728776778) GLU U QUAL (test code = Normal Normal 4317985994) BLOOD (test code = Negative Negative 4298350231) KETONES (test code = Negative Negative 1781043404) PROTEIN (test code = Negative Negative 2887-8) UROBILIN (test code = Normal Normal 1207586835) BILIRUBIN (test code = Negative Negative 0800514686) NITRITE (test code = Negative Negative 9662787772) LEUK MARY (test code = Negative Negative 0723501340) RBC/HPF (test code = <1 See_Comment [Autom ated message] 9361294849) The system [employer] generated this result transmitted ref erence range: 0 - 3 HP F. The reference range was not used to int erpret this result as normal/abnormal . WBC/HPF (test code = See_Comment [Autom ated message] 8046413456) The system [employer] generated this result transmitted ref erence range: 0 - 5 HP F. The reference range was not used to int erpret this result as normal/abnormal . BACTERIA (test code = Few Negative A 0663450738) MUCOUS (test code = Slight Negative LPF A 2319767926) SQ EPITH (test code = HPF 2443568904) Lab Interpretation (test Abnormal code = 10127-9) [facility]ADC [facility] LCC - DRUG SCREEN [id number] 23:49:00 Test Item Value Reference Range Interpretation Comments BENZO U (test code = Presumptive Positive Negative A 2204657179) ARNOLD U (test code = Negative Negative 7695447111) AMPHET (test code = Negative Negative 6369599499) THC (test code = Negative Negative 9264980515) METHADONE (test code = Negative Negative 1446440456) Meth U (test code = Negative Negative 0792461305) OPIATES (test code = Negative Negative 8866836332) Cocaine Metabolite (test Negative Negative code = 0026594689) PROPOXY (test code = Negative Negative 3914638949) Tric U (test code = Negative Negative 9447902986) PCP (test code = Negative Negative 8008552308) OXYCOD (test code = Negative Negative 1277993515) YAMIL (test code = YAMIL) Urine Drug [...] testing). Lab Interpretation (test Abnormal code = 03748-4) [facility] WITH [id number] 23:34:00 Test Item Value Reference Range Interpretation [...] RDW-SD (test code = 42.4 fL 39-49.9 92973-1) RDW-CV (test code = 13.0 % 12-15.5 788-0) PLT (test code = See_Comment [Automated 777-3) message] The sy stem which generated this result transmitted reference range : 166 - 358 10*3/ ?L. The reference r miguelina was not used to interpret this result as normal/abnormal . MPV (test code = 9.7 fL 9.5-12.9 34638-2) NRBC/100 WBC (test See_Comment [Automat ed code = 0714880307) message] The system which generated this result transmitted reference range : 0.0 - 10.0 /100 WBCs. The refer ence range was not u sed to interpret th is result as normal/abnormal . NRBC x10^3 (test code <0.01 See_Comment [Auto mated = 9959005901) message] The s ystem which generated this result transmitted reference range : 10*3/?L. The reference range was not used to interpret this result as normal/abnormal . GRAN MAT (NEUT) % 72.0 % (test code = 770-8) IMM GRAN % (test code 0.40 % = 4848312954) LYMPH % (test code = 21.6 % 736-9) MONO % (test code = 3.9 % 5905-5) EOS % (test code = 1.8 % 713-8) BASO % (test code = 0.3 % 706-2) GRAN MAT x10^3(ANC) 8.22 10*3/uL 1.88-7.09 H (test code = 4018300385) IMM GRAN x10^3 (test 0.05 10*3/uL 0-0.06 code = 3787129220) LYMPH x10^3 (test code 2.47 10*3/uL 1.32-3.29 = 731-0) MONO x10^3 (test code 0.45 10*3/uL 0.33-0.92 = 742-7) EOS x10^3 (test code = 0.20 10*3/uL 0.03-0.39 711-2) BASO x10^3 (test code 0.03 10*3/uL 0.01-0.07 = 704-7) Lab Interpretation Abnormal (test code = 64572-1) [facility] HospitalRPR, [id number] 14:45:00 Test Item Value Reference Range Interpretation Comments RPR (test code = RPR) Non-Reactive Non-Reactive N Thyroid Stimulating Hormone (TSH)2017-12-30 07:29:00 Test Item Value Reference Range Interpretation Comments TSH (test code = TSH) 2.42 mIU/mL 0.270-4.200 N BHCG, Serum, Yaquufnkqyfa4951-24-22 07:29:00 Test Item Value Reference Range Interpretation Comments B hCG, Quant (test <1 mIU/mL Weeks of Gestation code = BHCGQT) Ranges (mIU/m L)3 weeks 5.40 - 72.04 we eks 10.2 - 7085 weeks 21 7 - 14932 weeks 152 - 321 777 weeks 4059 - 2831830 weeks 60937 - 6276824 weeks 14531 - 9056517 0 weeks 18034 - 6067840 2 weeks 03453 - 8185033 4 weeks 55142 - 7316400 weeks 20328 - 1234118 weeks 2004 - 1566388 weeks 2440 - 9353060 weeks 9983 - 77301 Lipid Yataamr7195-74-42 07:19:00 Test Item Value Reference Range Interpretation Comments Cholesterol (test 132 mg/dL 0-200 N code = CHOL) Triglycerides (test 122 mg/dL 9-200 N code = TRIG) HDL (test code = 21 mg/dL 50-60 L HDL) Chol/HDL (test code 6.3 Ratio 0.0-4.4 H = CHOLPHDL) LDL, Calculated 87 0-130 N (NOTE)RISK O F HEART (test code = LDLC) DISEASEPu blished by [place]ron[place] Heart AssociationAnal yte Optimal Boderli ne Increased RiskC HOL <200 200-239 >240TRI G <150 150-199 >200HDL Male: >60 <40HDL Fema le: >60 <50LDL <100 130 -159 >160LDL NEAR OP TIMAL IS 100-129 VLDL (test code = 24 mg/dL 5-40 N VLDL) LDL/HDL (test code = 4 LDLPHDL) [id number] 04:24:00 Test Item Value Reference Range Interpretation [...] code = THC) POSITIVE Negative A Urinalysis Eomlqngr0983-83-12 03:47:00 Test Item Value Reference Range Interpretation Comments Color (test code = [place] Yellow,Straw,Pl A The va lue [place] COLOR) yellow originally released by JENA on 12/30/2017 03:4 2 waschanged to P ink by JENA on 12/30/2017 03:4 7 Clarity (test code = Sl Cloudy Clear A The tomi ue Clear CLAR) originally released by JENA on 12/30/2017 03:4 2 waschanged to S l Cloudy by BRIANA PARHAM on 12/30/2017 03:47 Specific [place] 1.006 1.001-1.035 N (test code = SPGR) [...] code Few /HPF = BACT) Comprehensive Metabolic [id number] 01:00:00 Test Item Value Reference Range Interpretation [...] the National Kidney Foundation,http ://nkd ep.nih.gov Alcohol/Ethanol, Joldl0572-41-71 01:00:00 Test Item Value Reference Range Interpretation Comments Alcohol, Ethyl <0.01 g/dL 0.00-0.01 N Intoxicated 0 .080 g/dL (test code = ETOH) or more CBC with Bchwkcccbgoq0522-24-05 00:45:00 Test Item Value Reference Range Interpretation [...] code = ALYMPH) 3.8 K/cumm 0.5-4.6 N [place] Abs (test code = AMONO) 0.5 K/cumm 0.0-1.2 N Eos Abs (test code = AEOS) 1.24 K/cumm 0.00-0.74 H Baso Abs (test code = ABASO) 0.1 K/cumm 0.00-0.21 N
[2023-07-22 15:20] LABS: Absolute Lymphocytes (CBC) 3.2 K/uL (0.7-4.9); Hematocrit 38.6 % (36.0-45.0); MCV 89.1 fL (80-100); MPV 7.3 fL (7.6-11.3); Platelets 489 thou/uL (152-406); RBC Red Blood Cell Count 4.34 M/uL (3.86-4.86)
[2023-07-22 15:38] LABS: Potassium 3.5 mEq/L (3.5-5.1); Troponin High Sensitivity 6.4 pg/mL (<58.9)
--- NOTE | 2023-07-22 16:03 | RAD REPORT ---
EXAM DESCRIPTION: Stephanie Single View07/22/2023 3:41 pm CLINICAL HISTORY: CHEST PAIN COMPARISON: CHEST SINGLE VIEW dated 02/14/2012; CHEST PA AND LAT 2 VIEW dated 10/20/2011; CHEST PA AN D LAT 2 VIEW dated 10/19/2011 TECHNIQUE: Portable AP view of the chest. FINDINGS: No pneumothorax. Central interstitial prominence. Hazy opacification throughout the right hemithorax which could reflect a layering pleural effusion. Cardiomegaly. Mediastinal contours are un remarkable. IMPRESSION: Central interstitial prominence and cardiomegaly, concerning for decompensated CHF. Hazy opacification throughout the right hemithorax, may reflect a layering pleural effusion. Upright follow-up chest radiograph would be helpful for re-evaluation.
--- NOTE | 2023-07-22 17:08 | EDPHYS ---
Physician Documentation [facility] Name: Miriam Fried Age: 43 yrs Sex: Female : 1980 Arrival Date: 07/22/2023 Time: 14:44 Bed 6 Private MD: ED Physician Ijeoma Melendez HPI: 07/22 16:58 This 43 yrs old Export Female presents to ER via EMS with complaints of Chest Pain. ci 16:58 Patient is a 43-year-old female with PMH arrhythmia, anxiety, depression who presents ci for midsternal chest pain. Patient was at [employer] and was arrested by the apparel rental clerk. Patient then endorsed chest pain and EMS was called. Patient states that she is unsure if this is anxiety or if this is actually her heart. Received 324 mg aspirin by EMS. She denies associated shortness of breath, nausea/vomiting, diaphoresis.. Historical: - Allergies: 14:46 Morphine; aa5 14:46 Bactrim DS; aa5 - Home Meds: 14:45 Adderall oral [Active]; gabapentin oral [Active]; aripiprazole oral [Active]; Xanax aa5 Oral [Active]; - PMHx: 14:46 ADD/ADHD; Anxiety; Depression; depressive disorder; PTSD; heart arrythmia; aa5 - PSHx: 14:46 section; aa5 ROS: 16:58 Constitutional: Negative for body aches, chills, fatigue, fever, ci 16:58 Cardiovascular: Positive for chest pain, Negative for edema, orthopnea, palpitations, 16:58 Respiratory: Negative for cough, shortness of breath, wheezing, 16:58 Abdomen/GI: Negative for abdominal pain, nausea, vomiting, and diarrhea, 16:58 Psych: Positive for anxiety, Negative for homicidal ideation, suicidal ideation, Exam: 16:58 Constitutional: This is a well developed, well nourished patient who is awake, alert, ci and in no acute distress. Head/Face: Normocephalic, atraumatic. Eyes: Pupils equal round and reactive to light, extra-ocular motions intact. Lids and lashes normal. Conjunctiva and sclera are non-icteric and not injected. Cornea within normal limits. Periorbital areas with no swelling, redness, or edema. ENT: Nares patent. No nasal discharge, no septal abnormalities noted. Tympanic membranes are normal and external auditory canals are clear. Oropharynx with no redness, swelling, or masses, exudates, or evidence of obstruction, uvula midline. Mucous membranes moist. Neck: Trachea midline, no thyromegaly or masses palpated, and no cervical lymphadenopathy. Supple, full range of motion without nuchal rigidity, or vertebral point tenderness. No Meningismus. Chest/axilla: Normal chest wall appearance and motion. Nontender with no deformity. No lesions are appreciated. Cardiovascular: Regular rate and rhythm with a normal S1 and S2. No gallops, murmurs, or rubs. No JVD. No pulse deficits. Respiratory: Lungs have equal breath sounds bilaterally, clear to auscultation and percussion. No rales, rhonchi or wheezes noted. No increased work of breathing, no retractions or nasal flaring. Abdomen/GI: Soft, non-tender, with normal bowel sounds. No distension or tympany. No guarding or rebound. No evidence of tenderness throughout. Back: No spinal tenderness. No costovertebral tenderness. Full range of motion. Skin: Warm, dry with normal turgor. Normal color with no rashes, no lesions, and no evidence of cellulitis. MS/ Extremity: Pulses equal, no cyanosis. Neurovascular intact. Full, normal range of motion. Neuro: Awake and alert, GCS 15, oriented to person, place, time, and situation. Cranial nerves II-XII grossly intact. Motor strength 5/5 in all extremities. Sensory grossly intact. Cerebellar exam normal. Normal gait. Psych: Awake, alert, with orientation to person, place and time. Behavior, mood, and affect are within normal limits. Vital Signs: 14:45 BP 113 / 77; Pulse 93; Resp 19 S; Temp 98(TE); Pulse Ox 98% on R/A; aa5 16:25 BP 115 / 70; Pulse 84; Resp 20 S; Pulse Ox 89% on R/A; aa5 16:27 Pulse Ox 97% on 2 lpm NC; aa5 16:43 BP 118 / 75; Pulse 85; Resp 18 S; Pulse Ox 97% on R/A; aa5 16:25 Pt sleeping with snoring respirations. aa5 MDM: 14:46 Patient medically screened. 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 16:58 Differential diagnosis: acute myocardial infarction, anxiety, esophagitis, gastritis, ci pneumonia, stable angina, unstable angina. HEART Score: History: Slightly Suspicious (0), ECG: Normal (0), Age: < or = 45 years (0), Risk Factors: 1 or 2 risk factors (1), [Obesity] Troponin: < or = 1 x Normal Limit (0), Total Score = 1. Historians other than the Patient: EMS: . Care significantly affected by the following chronic conditions: Anxiety, depression. 17:08 Data reviewed: vital signs, nurses notes, EMS record, old medical records, lab test ci result(s), EKG. 07/22 14:46 Order name: Basic Metabolic Panel; Complete Time: 16:24 ci 07/22 14:46 Order name: CBC with Diff; Complete Time: 16:24 ci 07/22 14:46 Order name: Troponin HS; Complete Time: 16:24 ci 07/22 14:46 Order name: XRAY Chest (1 view); Complete Time: 16:24 ci 07/22 17:05 Interpretation: Per Radiologist's finding(s): IMPRESSION: Central interstitial ci prominence and cardiomegaly, concerning for decompensated CHF. Hazy opacification throughout the right hemithorax, may reflect a layering pleural effusion. Upright follow-up chest radiograph would be helpful for re-evaluation. 07/22 14:46 Order name: EKG; Complete Time: 14:47 ci 07/22 17:06 Interpretation: Normal sinus rhythm, HR 90, QTc 481, no acute ischemic changes. ci 07/22 14:46 Order name: Cardiac monitoring; Complete Time: 14:52 ci 07/22 14:46 Order name: EKG - Nurse/Tech; Complete Time: 15:03 ci 07/22 14:46 Order name: IV Saline Lock; Complete Time: 14:58 ci 07/22 14:46 Order name: Labs collected and sent; Complete Time: 14:58 ci 07/22 14:46 Order name: O2 Per Protocol; Complete Time: 14:52 ci 07/22 14:46 Order name: O2 Sat Monitoring; Complete Time: 14:52 ci Administered Medications: No medications were administered Disposition Summary: 07/22/23 17:07 Eloped Notes: Disposition: after being seen by provider ci Reason: (see nurse's notes) ci Signatures: Dispatcher [employer] Haley Beatty RN RN aa5 Ijeoma Melendez ci Corrections: (The following items were deleted from the chart) 14:49 14:46 PMHx: Atrial Fib; jackie mejia
--- NOTE | 2023-07-22 17:08 | ER ---
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 Onset of symptoms was July 2023. 14:45 Acuity: REGINA 3 aa5 14:45 Care prior to arrival: Medication(s) given: ASA, 81 mg, x 4. aa5 14:45 Coronavirus screen: At this time, the client does not indicate any symptoms associated aa5 with coronavirus-19. Ebola Screen: Patient denies travel to an Ebola-affected area in the 21 days before illness onset. Initial Sepsis Screen: Does the patient meet any 2 criteria? No. Patient's initial sepsis screen is negative. Does the patient have a suspected source of infection? No. Patient's initial sepsis screen is negative. Risk Assessment: Do you want to hurt yourself or someone else? Patient reports no desire to harm self or others. 14:45 Method Of Arrival: EMS: [facility] aa5 Historical: - Allergies: 14:46 Morphine; aa5 14:46 Bactrim DS; aa5 - Home Meds: 14:45 Adderall oral [Active]; gabapentin oral [Active]; aripiprazole oral [Active]; Xanax aa5 Oral [Active]; - PMHx: 14:46 ADD/ADHD; Anxiety; Depression; depressive disorder; PTSD; heart arrythmia; aa5 - PSHx: 14:46 section; aa5 Screenin:03 [facility] ED Fall Risk Assessment (Adult) History of falling in the last 3 months, aa5 including since admission No falls in past 3 months (0 pts) Confusion or Disorientation No (0 pts) Intoxicated or Sedated No (0 pts) Impaired Gait No (0 pts) Mobility Assist Device Used No (0 pt) Altered Elimination No (0 pt) Score/Fall Risk Level 0 - 2 = Low Risk Oriented to surroundings, Maintained a safe environment, Educated pt \\T\\ family on fall prevention, incl call for assistance when getting out of bed. Abuse screen: Denies threats or abuse. Nutritional screening: No deficits noted. Tuberculosis screening: No symptoms or risk factors identified. Assessment: 14:45 General: Appears uncomfortable, Behavior is calm, cooperative. Pain: Complains of pain aa5 in mid-sternal area Pain radiates to left arm Pain currently is 5 out of 10 on a pain scale. Quality of pain is described as aching, Pain began "last night" Is intermittent. Neuro: Level of Consciousness is awake, alert, obeys commands, Oriented to person, place, time, situation. Cardiovascular: Heart tones S1 S2 present Rhythm is regular. Respiratory: Airway is patent Respiratory effort is even, unlabored, Respiratory pattern is regular, symmetrical, Breath sounds are clear bilaterally. GI: No signs and/or symptoms were reported involving the gastrointestinal system. : No signs and/or symptoms were reported regarding the genitourinary system. EENT: No signs and/or symptoms were reported regarding the EENT system. Derm: Skin is pink, warm \\T\\ dry. Musculoskeletal: Range of motion: intact in all extremities. 15:05 Reassessment: Patient is alert, oriented x 3, equal unlabored respirations, skin aa5 warm/dry/pink. Pt notified of wait time for lab results . 16:25 Reassessment: Pt sleeping with snoring respirations. . aa5 16:43 Reassessment: Patient is alert, oriented x 3, equal unlabored respirations, skin aa5 warm/dry/pink. Pt ambulatory to restroom . 17:00 Reassessment: Pt walked out of ER, pt states "I have to leave, I have to go order picker my aa5 car". notified pt left. . Vital Signs: 14:45 BP 113 / 77; Pulse 93; Resp 19 S; Temp 98(TE); Pulse Ox 98% on R/A; aa5 16:25 BP 115 / 70; Pulse 84; Resp 20 S; Pulse Ox 89% on R/A; aa5 16:27 Pulse Ox 97% on 2 lpm NC; aa5 16:43 BP 118 / 75; Pulse 85; Resp 18 S; Pulse Ox 97% on R/A; aa5 16:25 Pt sleeping with snoring respirations. aa5 ED Course: 14:45 Patient arrived in ED. aa5 14:45 Iheonunekwu, Chizite is Attending Physician. ci 14:45 Arm band placed on Patient placed in an exam room, on a stretcher. aa5 14:45 Patient has correct armband on for positive identification. Bed in low position. Call aa5 light in reach. Side rails up X2. Client placed on continuous cardiac and pulse oximetry monitoring. NIBP monitoring applied. 14:46 Triage completed. aa5 14:52 Haley Gardner, RN is Primary Nurse. aa5 14:58 Inserted saline lock: 22 gauge in right antecubital area, using aseptic technique. ds4 Blood collected. 15:05 No provider procedures requiring assistance completed. Patient maintains SpO2 aa5 saturation greater than 95% on room air. 15:43 XRAY Chest (1 view) In Process Unspecified. EDMS 16:42 intact, bleeding controlled, No redness/swelling at site. Pressure dressing applied, Pt aa5 pulled out her IV, pt states "I needed to go to the restroom so I pulled it out". Administered Medications: No medications were administered Outcome: 17:00 Patient left the ED. aa5 17:00 Eloped from patient exam room, after seeing physician aa5 17:00 Condition: stable Signatures: Dispatcher [employer] EDMS Haley Gardner, MARY RN Sabino Craig ds4 Ijeoma Melendez ci Corrections: (The following items were deleted from the chart) 14:49 14:46 PMHx: Atrial Fib; aa5 aa5 17:40 16:45 BP 118 / 75; Pulse 85bpm; Resp 18bpm; Spontaneous; Pulse Ox 97% RA; aa5 aa5 17:40 17:09 Patient left the ED. aa5 aa5
[2023-07-22 17:49] VITALS: BP 115/70
[2023-07-22 18:17] VITALS: O2SAT 97
== END 2023-07-22 17:09 | disposition left against medical advice (07) ==
LOC: ER 14:44
DX: R07.9 Chest pain, unspecified (principal)
CPT/HCPCS: 36415; 71045; 80048; 84484; 85025

== ENCOUNTER 2023-08-06 07:14 | Emergency (ER) | payer SELFPAY ==
--- OUTSIDE RECORDS SUMMARY | 2023-08-06 07:20 | XMS REPORT | Continuity of Care Document ---
:1980 Author Organization [facility] t Address [address] [facility] [address] [place] [address] Care Team Providers Name Role Phone UNKNOWN, REFFERING Primary Care Physician Unavailable Sherman Collazo Attending Clinician Unavailable Rj Diez Attending Clinician Unavailable Rj Diez Attending Clinician Unavailable JYOTI PAGAN Attending Clinician Unavailable [email or web address] Attending Clinician Unavailable SEPIDEH PALMER Attending Clinician Unavailable Sepideh Palmer DO Attending Clinician MIGUEL A NATH Attending Clinician Unavailable Miguel A Nath MD Attending Clinician Doctor Unassigned, [place] Attending Clinician Unavailable GAGE REID Attending Clinician Unavailable Gage Reid MD Attending Clinician Ultrasound, Hood-Petros Attending Clinician Unavailable Cheikh Campos MD Attending Clinician Fellow, [facility] Attending Clinician Unavailable Morro Savage MD Attending Clinician Olga Lidia Corral MD Attending Clinician Sanjana Sierra PA-C Attending Clinician Edson Emanuel Attending Clinician Edson CHAMBERS Attending Clinician Unavailable Faculty, [facility] Attending Clinician Unavailable Deedee SMILEY, [place] Attending Clinician NORMA SIMONS M.D., NORMA Smith M.D. Attending Clinician Unavailable GAGE REID Admitting Clinician Unavailable Sherman Collazo Admitting Clinician Unavailable Rj Diez Admitting Clinician Unavailable [email or web address] Admitting Clinician Unavailable Jeanette SMILEY, Gage Holloway Admitting Clinician NORMA SIMONS M.D., NORMA Smith Admitting Clinician Nader recinos Payers Payer Name Policy Type Policy Number Effective Date Expiration Date Rosales may [facility] [id number] 2020 CHOICE MEDICAID 00:00:00 [facility] [id number] [facility] ([facility]) MEDICAID OF [place] [id number] 2020 00:00:00 Problems Condition Condition Condition Status Onset Resolution Last Treating Co mments Source Name Details Category Date Date Treatment Clinician Date 39 weeks 39 weeks Disease Active 2019-11 Unive rs gestation gestation 1-11 ity of of of 00:00: [place] 00 [facility] QT QT Disease Active 2019-11 Univers prolongati prolongati 1-11 it y of on on 00:: [address] Obesity Obesity Disease Active 2019-11 Univers (BMI (BMI 1-09 ity of 30-39.9) 30-39.9) 00:00: [address] Insufficie Insufficie Disease Active 2019-11 U nivers nt nt 1-09 ity of 00:00: [place] care in care in [address] [place] [address] third Branch trimester trimester 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 00:00: Rajeeva 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, disorder, 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 features Supervisio Supervisio Disease Active U nivers n of high n of high 5-14 ity of risk risk 00:00: [place] 00 Medi bertha in third in third Branch trimester trimester History of History of Disease Active 2019- U nivers cardiac cardiac 5-14 ity of arrest arrest 00:00: [place] [facility] Anxiety Anxiety Disease Active 2019-0 Univers disorder, disorder, 5-14 ity of unspecifie [place]specifie [place] type d type 00 Medical Branch History of History of Disease Active 2019-0 U nivers drug abuse drug abuse 5-14 it y of 00:00: [place] [facility] 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 U 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y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 [place] Previous Previous Disease Active 2019- Unive rs 5-14 ity of section section 00:00: [place] [facility] Medication Medication Disease Active 2019-0 U nivers exposure exposure 5-14 ity of during during 00:00: [place] first first 00 Medical trimester trimester Bran ch of of Smoking Smoking Disease Active 2019- Univers 5-14 ity of 00:00: [place] [facility] Abdominal Abdominal Disease Active Uni [...] gildardo INGREDI 0-05 ity of 00:00: [place] [facility] Morphine Propensi Active Unknown - 2010-11 Per Uni vers ty to See comments 0-05 patient ity of adverse 00:00: she went [place] reaction 00 into Medical s cardiac Branch arrest after receiving morphine at the hospital March 2011 morphine Drug Active [facility] morphine Drug Active [facility] morphine Drug Active [facility] morphine Drug Active [facility] morphine Drug Active [facility] morphine Drug Active [facility] morphine Drug Active [facility] morphine Drug Active [facility] morphine Drug Active [facility] morphine Drug Active [facility] morphine Drug Active [facility] morphine Drug Active [facility] morphine Drug Active [facility] Social History Social Habit Start Date Stop Date Quantity Comments Source ASSERTION 2019-12-22 University of 00:00:00 [facility] History of tobacco Cigarette Smoker University of use [facility] Alcohol intake 2023-05-01 2023-05-01 Current drinker Unive rsity of 00:00:00 00:00:00 of alcohol [facility] (finding) Branch Exposure to 2023-01-03 2023-01-13 Not sure [facility] SARS-CoV-2 (event) 00:00:00 21:35:00 [facility] Tobacco use and 2020-03-15 2020-03-15 Smokeless Universit y of exposure 00:00:00 00:00:00 tobacco non-user [facility] dical [place] Cigarettes smoked 2020-03-15 2020-03-15 Univers ity of current (pack per 00:00:00 00:00:00 [facility] ) - Reported Branch Sex Ass[birth year] At [birth year] Universit y of 00:00:00 00:00:00 [facility] Smoking Status Start Date Stop Date Source Smokes tobacco daily 2020-03-15 00:00:00 Univers ity of [facility] Medications Ordered Filled Start Stop Current Ordering Indication Dosage Frequency Signature Comments Components Source Medication Medication Date Date Medication? Clinician (SIG) Name Name NaCl 0.9% No 1000mL at 999 Uni vers (NS) bolus 05-01 mL/hr, ity of infusion 19:00: 19:10 1,000 [...] ity of 1,000 mg in 18:15: 18:43 [facility] [place] NaCl 0.9% 00 :00 ONCE, 1 Medical (NS) 100 mL dose, On Bran ch MINI-BAG Thu05/01/23 at 1315, Administer over 30 Minutes, 100 mL
Reas on for Anti-Infec tive: Documented Infection< br>Documen bhavya Infection Site: Urine<br&g t;Duration of Therapy: 7 days NaCl 0.9% 2022-0 2022- No 1000mL at 999 Uni vers (NS) bolus 05-01-30 mL/hr, ity of infusion 17:30: 18:14 1,000 mL, Rajeev as 1,000 mL 00 :00 IV Medical Infusion, Branch ONCE, 1 dose, On Thu05/01/23 at 1230, CHRISTY ondansetron Yes [id number] 4mg Take 1 Univers 4 mg -30 tablet by ity of disintegrat 00:00: mouth [place] ing tablet 00 every 8 Medica l (eight) Branch hours as needed for Nausea and Vomiting (N/V). sulfamethox 0 2022- No [id number] 1{tbl} Take 1 Univers azole-trime 05-01 07-06 tablet by it y of thoprim 00:00: 04:59 mouth [place] 800-160 mg 00 :00 every 12 Medic al per tablet (twelve) Branc h hours for 5 days. risperiDONE 2019-11 Yes 2mg Take 2 mg U nivers 2 mg tablet 1-12 by mouth ity of 01:27: daily. [address] SERTraline 2019-11 Yes 50mg Take 50 mg U nivers (ZOLOFT) 50 1-12 by mouth ity of mg tablet 01:27: daily. [address] [id number] IV 2019-11 Yes 1000mL at 125 Univ ers infusion 1-12 mL/hr, IV ity of 1,000 mL 00:45: [place] CONTINUOUS Medical , Starting Branch Thu09/12/20 at 1845, Until Discontinu ed, Routine risperiDONE 2019-11 Yes 2mg Take 2 mg U nivers 2 mg tablet -11 by mouth ity of 19:27: daily. [address] SERTraline 2019-11 Yes 50mg Take 50 mg U nivers (ZOLOFT) 50 1-11 by mouth ity of mg tablet 19:27: daily. [address] risperiDONE 2019-11 Yes 2mg Take 2 mg U nivers 2 mg tablet 1-11 by mouth ity of 19:27: daily. [address] SERTraline 2019-11 Yes 50mg Take 50 mg U nivers (ZOLOFT) 50 1-11 by mouth ity of mg tablet 19:27: daily. [address] risperiDONE 2019-11 Yes 2mg Take 2 mg U nivers 2 mg tablet 1-11 by mouth ity of 19:27: daily. [address] SERTraline 2019-11 Yes 50mg Take 50 mg U nivers (ZOLOFT) 50 1-11 by mouth ity of mg tablet 19:27: daily. [address] risperiDONE 2019-11 Yes 2mg Take 2 mg U nivers 2 mg tablet 1-10 by mouth ity of 01:35: daily. [address] SERTraline 2019-11 Yes 50mg Take 50 mg U nivers (ZOLOFT) 50 1-10 by mouth ity of mg tablet 01:35: daily. [address] risperiDONE 2019-11 Yes 2mg Take 2 mg U nivers 2 mg tablet 1-10 by mouth ity of 01:35: daily. [address] SERTraline 2019-11 Yes 50mg Take 50 mg U nivers (ZOLOFT) 50 1-10 by mouth ity of mg tablet 01:35: daily. [address] risperiDONE 2019-11 Yes 2mg Take 2 mg U nivers 2 mg tablet 1-10 by mouth ity of 01:35: daily. [address] SERTraline 2019-11 Yes 50mg Take 50 mg U nivers (ZOLOFT) 50 1-10 by mouth ity of mg tablet 01:35: daily. [address] risperiDONE 2019-11 Yes 2mg Take 2 mg U nivers 2 mg tablet 1-10 by mouth ity of 01:35: daily. [address] SERTraline 2019-11 Yes 50mg Take 50 mg U nivers (ZOLOFT) 50 1-10 by mouth ity of mg tablet 01:35: daily. [address] risperiDONE 2019-11 Yes 2mg Take 2 mg U nivers 2 mg tablet 1-10 by mouth ity of 01:35: daily. [address] SERTraline 2019-11 Yes 50mg Take 50 mg U nivers (ZOLOFT) 50 1-10 by mouth ity of mg tablet 01:35: daily. [address] risperiDONE 2019-11 Yes 2mg Take 2 mg U nivers 2 mg tablet 1-10 by mouth ity of 01:35: daily. [address] SERTraline 2019-11 Yes 50mg Take 50 mg U nivers (ZOLOFT) 50 1-10 by mouth ity of mg tablet 01:35: daily. [address] risperiDONE 2019-11 Yes 2mg Take 2 mg U nivers 2 mg tablet 1-10 by mouth ity of 01:35: daily. [address] SERTraline 2019-11 Yes 50mg Take 50 mg U nivers (ZOLOFT) 50 1-10 by mouth ity of mg tablet 01:35: daily. [address] risperiDONE 2019-11 Yes 2mg Take 2 mg U nivers 2 mg tablet 1-10 by mouth ity of 01:35: daily. [address] SERTraline 2019-11 Yes 50mg Take 50 mg U nivers (ZOLOFT) 50 1-10 by mouth ity of mg tablet 01:35: daily. [address] risperiDONE 2019-11 Yes 2mg Take 2 mg U nivers 2 mg tablet 1-10 by mouth ity of 01:35: daily. [address] SERTraline 2019-11 Yes 50mg Take 50 mg U nivers (ZOLOFT) 50 1-10 by mouth ity of mg tablet 01:35: daily. [address] [id number] IV 2019-11 Yes 1000mL at 125 Univ ers infusion 1-10 mL/hr, IV ity of 1,000 mL 00:45: [place] CONTINUOUS Medical , Starting Branch 09/10/20 at 1845, Until Discontinu ed, Routine PNV 2019-0 Yes [id number] Take 1 Univers 102-iron-fo 5-14 TAB-CAP/M2 it y of late 00:00: by mouth [place] 1-dss-dha 00 daily. Medical (VITAFOL Branch FE+, WITH DOCUSATE,) 90 mg iron-1 mg -50 mg-200 mg Cap PNV 2019-0 Yes [id number] Take 1 Univers 102-iron-fo 5-14 TAB-CAP/M2 it y of late 00:00: by mouth [address] 00 daily. Medical (VITAFOL Branch FE+, WITH DOCUSATE,) 90 mg iron-1 mg -50 mg-200 mg Cap PNV 2020-0 Yes [id number] Take 1 Univers 102-iron-fo 5-14 TAB-CAP/M2 it y of late 00:00: by mouth [address] 00 daily. Medical (VITAFOL Branch FE+, WITH DOCUSATE,) 90 mg iron-1 mg -50 mg-200 mg Cap PNV 2020-0 Yes [id number] Take 1 Univers 102-iron-fo 5-14 TAB-CAP/M2 it y of late 00:00: by mouth [address] 00 daily. Medical (VITAFOL Branch FE+, WITH DOCUSATE,) 90 mg iron-1 mg -50 mg-200 mg Cap PNV 2020-0 Yes [id number] Take 1 Univers 102-iron-fo 5-14 TAB-CAP/M2 it y of late 00:00: by mouth [address] 00 daily. Medical (VITAFOL Branch FE+, WITH DOCUSATE,) 90 mg iron-1 mg -50 mg-200 mg Cap PNV 2020-0 Yes [id number] Take 1 Univers 102-iron-fo 5-14 TAB-CAP/M2 it y of late 00:00: by mouth [address] 00 daily. Medical (VITAFOL Branch FE+, WITH DOCUSATE,) 90 mg iron-1 mg -50 mg-200 mg Cap PNV 2020-0 Yes [id number] Take 1 Univers 102-iron-fo 5-14 TAB-CAP/M2 it y of late 00:00: by mouth [address] 00 daily. Medical (VITAFOL Branch FE+, WITH DOCUSATE,) 90 mg iron-1 mg -50 mg-200 mg Cap PNV 2020-0 Yes [id number] Take 1 Univers 102-iron-fo 5-14 TAB-CAP/M2 it y of late 00:00: by mouth [address] 00 daily. Medical (VITAFOL Branch FE+, WITH DOCUSATE,) 90 mg iron-1 mg -50 mg-200 mg Cap PNV 2020-0 Yes [id number] Take 1 Univers 102-iron-fo 5-14 TAB-CAP/M2 it y of late 00:00: by mouth [place] 1-dss-dha 00 daily. Medical (VITAFOL Branch FE+, WITH DOCUSATE,) 90 mg iron-1 mg -50 mg-200 mg Cap PNV 2020-0 Yes [id number] Take 1 Univers 102-iron-fo 5-14 TAB-CAP/M2 it y of late 00:00: by mouth [place] 1-dss-dha 00 daily. Medical (VITAFOL Branch FE+, WITH DOCUSATE,) 90 mg iron-1 mg -50 mg-200 mg Cap PNV 2020-0 Yes [id number] Take 1 Univers 102-iron-fo 5-14 TAB-CAP/M2 it y of late 00:00: by mouth [place] 1-dss-dha 00 daily. Medical (VITAFOL Branch FE+, WITH DOCUSATE,) 90 mg iron-1 mg -50 mg-200 mg Cap PNV 2020-0 Yes [id number] Take 1 Univers 102-iron-fo 5-14 TAB-CAP/M2 it y of late 00:00: by mouth [place] 1-dss-dha 00 daily. Medical (VITAFOL Branch FE+, WITH DOCUSATE,) 90 mg iron-1 mg -50 mg-200 mg Cap PNV 2020-0 Yes [id number] Take 1 Univers 102-iron-fo 5-14 TAB-CAP/M2 it y of late 00:00: by mouth [place] 1-dss-dha 00 daily. Medical (VITAFOL Branch FE+, WITH DOCUSATE,) 90 mg iron-1 mg -50 mg-200 mg Cap PNV 2020-0 Yes [id number] Take 1 Univers 102-iron-fo 5-14 TAB-CAP/M2 it y of late 00:00: by mouth [place] 1-dss-dha 00 daily. Medical (VITAFOL Branch FE+, WITH DOCUSATE,) 90 mg iron-1 mg -50 mg-200 mg Cap PNV 2020-0 Yes [id number] Take 1 Univers 102-iron-fo 5-14 TAB-CAP/M2 it y of late 00:00: by mouth [place] 1-dss-dha 00 daily. Medical (VITAFOL Branch FE+, WITH DOCUSATE,) 90 mg iron-1 mg -50 mg-200 mg Cap PNV 2020-0 Yes [id number] Take 1 Univers 102-iron-fo 5-14 TAB-CAP/M2 it y of late 00:00: by mouth [place] [address]-dss-dha 00 daily. Medical (VITAFOL Branch FE+, WITH DOCUSATE,) 90 mg iron-1 mg -50 mg-200 mg Cap PNV 2020-0 Yes [id number] Take 1 Univers 102-iron-fo 5-14 TAB-CAP/M2 it y of late 00:00: by mouth [place] [address]-dss-[facility] 00 daily. Medical (VITAFOL Branch FE+, WITH DOCUSATE,) 90 mg iron-1 mg -50 mg-200 mg Cap PNV 2020-0 Yes [id number] Take 1 Univers 102-iron-fo 5-14 TAB-CAP/M2 it y of late 00:00: by mouth [place] 1-dss-dha 00 daily. Medical (VITAFOL Branch FE+, WITH DOCUSATE,) 90 mg iron-1 mg -50 mg-200 mg Cap PNV 2020-0 Yes [id number] Take 1 Univers 102-iron-fo 5-14 TAB-CAP/M2 it y of late 00:00: by mouth [place] [address]-[facility] 00 daily. Medical (VITAFOL Branch FE+, WITH DOCUSATE,) 90 mg iron-1 mg -50 mg-200 mg Cap PNV 2020-0 Yes [id number] Take 1 Univers 102-iron-fo 5-14 TAB-CAP/M2 it y of late 00:00: by mouth [place] [address]-dss-dha 00 daily. Medical (VITAFOL Branch FE+, WITH DOCUSATE,) 90 mg iron-1 mg -50 mg-200 mg Cap PNV 2020-0 Yes [id number] Take 1 Univers 102-iron-fo 5-14 TAB-CAP/M2 it y of late 00:00: by mouth [place] [address]-dss-[facility] 00 daily. Medical (VITAFOL Branch FE+, WITH DOCUSATE,) 90 mg iron-1 mg -50 mg-200 mg Cap PNV 2020-0 Yes [id number] Take 1 Univers 102-iron-fo 5-14 TAB-CAP/M2 it y of late 00:00: by mouth [place] [address]-dss-dha 00 daily. Medical (VITAFOL Branch FE+, WITH DOCUSATE,) 90 mg iron-1 mg -50 mg-200 mg Cap PNV Yes [id number] Take 1 Univers 102-iron-fo 5-14 TAB-CAP/M2 it [...] at Branch 2100, CHRISTY gabapentin 2019- No [id number] 300mg Take 1 Univers 300 mg 06-22 [...] of mg capsule 00:00: daily. [place] 00 Medical Branch clonazePAM 2010- Yes .5mg Take 1 Tab U nivers (KLONOPIN) 8-05 by mouth 3 ity of 0.5 mg 00:00: (three) [place] tablet 00 times Medical daily. Branch FLUoxetine Yes 20mg Take 1 Cap U nivers (PROZAC) 20 8-05 by mouth ity of mg capsule 00:00: daily. Medical Branch clonazePAM 2010- Yes .5mg Take 1 Tab U nivers (KLONOPIN) 8-05 by mouth 3 ity of 0.5 mg 00:00: (three) [place] tablet 00 times Medical daily. Branch FLUoxetine Yes 20mg Take 1 Cap U nivers (PROZAC) 20 8-05 by mouth ity of mg capsule 00:00: daily. [address] clonazePAM Yes .5mg Take 1 Tab U nivers (KLONOPIN) 8-05 by mouth 3 ity of 0.5 mg 00:00: (three) [place] tablet 00 times Medical daily. Branch FLUoxetine Yes 20mg Take 1 Cap U nivers (PROZAC) 20 8-05 by mouth ity of mg capsule 00:00: daily. [address] FLUoxetine Yes 20mg Take 1 Cap U nivers (PROZAC) 20 8-05 by mouth ity of mg capsule 00:00: daily. [address] FLUoxetine Yes 20mg Take 1 Cap U nivers (PROZAC) 20 8-05 by mouth ity of mg capsule 00:00: daily. [address] FLUoxetine Yes 20mg Take 1 Cap U nivers (PROZAC) 20 8-05 by mouth ity of mg capsule 00:00: daily. [address] FLUoxetine Yes 20mg Take 1 Cap U nivers (PROZAC) 20 8-05 by mouth ity of mg capsule 00:00: daily. [address] FLUoxetine Yes 20mg Take 1 Cap U nivers (PROZAC) 20 8-05 by mouth ity of mg capsule 00:00: daily. [address] FLUoxetine Yes 20mg Take 1 Cap U nivers (PROZAC) 20 8-05 by mouth ity of mg capsule 00:00: daily. [address] clonazePAM Yes .5mg Take 1 Tab U nivers (KLONOPIN) 8-05 by mouth 3 ity of 0.5 mg 00:00: (three) [place] tablet 00 times Medical daily. Branch FLUoxetine Yes 20mg Take 1 Cap U nivers (PROZAC) 20 8-05 by mouth ity of mg capsule 00:00: daily. [address] clonazePAM Yes .5mg Take 1 Tab [...] No .5mg Take 1 Tab Univers (KLONOPIN) 8 05-14 by mouth 3 it y of [...] times Medical (1,250 mg) daily with [facility] tablet meals. ferrous Yes 325mg Take [...] times Medical (1,250 mg) daily with [facility] tablet meals. ferrous Yes 325mg Take [...] times Medical (1,250 mg) daily with [facility] tablet meals. ferrous Yes 325mg Take [...] times Medical (1,250 mg) daily with [facility] tablet meals. ferrous Yes 325mg Take [...] times Medical (1,250 mg) daily with [facility] tablet meals. ferrous Yes 325mg Take [...] by mouth ity of w/FA 00:00: daily. [place] ( 00 Medical RX OR Branch GENERIC EQUIVALENT) tablet calcium 2019- No 500mg Take 1 Tab Un gildardo carbonate 5-13 05-14 by mouth 3 ity of (OSCAL-500) 00:00: 00:00 (three) [place] 500 mg 00 :00 times Medical (1,250 mg) daily with [facility] tablet meals. ferrous 2019- No 325mg Take [...] 24 Medical (twenty-fo Branch ur) hours. thiamine 2020- No 100mg Take 1 Tab U nivers (VITAMIN 5-13 05-14 by mouth ity of B1) 100 mg 00:00: 00:00 [place] tablet [place] :00 [place] Branch 2020- No 1{tbl} Take 1 Tab Univers vitamin 5-13 05-14 by mouth ity of w/FA 00:00: 00:00 daily. [place] ( 00 :00 Medical RX OR Branch GENERIC EQUIVALENT) tablet Vital Signs Vital Name Observation Time Observation Value Comments Source Height/Length 2020-07-25 Measured 11:28:48 Systolic blood 2023-05-01 148 mm[Hg] University pressure 18:15:22 [facility] Diastolic blood 2023-05-01 73 mm[Hg] University o f pressure 18:15:22 [facility] Branch Heart rate 2023-05-01 93 /min University of 18:15:22 [facility] Branch Respiratory rate 2023-05-01 16 /min University of 18:15:22 [facility] Branch Oxygen saturation 2023-05-01 100 /min University of in Arterial blood 18:15:22 [facility] by Pulse oximetry Branch Body temperature 2023-05-01 36.44 Lien University of 16:33:00 [facility] Body weight 2023-05-01 90.719 kg University of 16:33:00 [facility] Branch BMI 2023-05-01 34.33 kg/m2 University of 16:33:00 [facility] Branch Systolic blood 2023-01-14 133 mm[Hg] University of pressure 02:37:00 [facility] Branch Diastolic blood 2023-01-14 65 mm[Hg] University o f pressure 02:37:00 [facility] Heart rate 2023-01-14 89 /min University of 02:37:00 [facility] Body temperature 2023-01-14 37.44 Lien University of 02:37:00 [facility] Branch Respiratory rate 2023-01-14 18 /min University of 02:37:00 [facility] Body height 2023-01-14 162.6 cm University of 02:37:00 [facility] Body weight 2023-01-14 90.719 kg University of 02:37:00 [facility] BMI 2023-01-14 34.33 kg/m2 University of 02:37:00 [facility] Oxygen saturation 2023-01-14 96 /min University of in Arterial blood 02:37:00 [facility] by Pulse oximetry Branch Heart rate 2020-09-12 97 /min University of 23:45:00 [facility] Body temperature 2020-09-12 36.61 Lien University of 23:45:00 [facility] Branch Systolic blood 2020-09-12 128 mm[Hg] University of pressure 23:45:00 [place] [facility] Diastolic blood 2020-09-12 66 mm[Hg] University o f pressure 23:45:00 [facility] Branch Respiratory rate 2020-09-12 18 /min University of 21:30:00 [facility] Branch Oxygen saturation 2020-09-12 92 /min University of in Arterial blood 21:30:00 [facility] by Pulse oximetry Branch Body height 2020-09-12 162.6 cm University of 20:00:00 [facility] Body weight 2020-09-12 90.719 kg University of 20:00:00 [facility] BMI 2020-09-12 34.33 kg/m2 University of 20:00:00 [facility] Heart rate 2020-09-12 97 /min University of 23:45:00 [facility] Body temperature 2020-09-12 36.61 Lien University of 23:45:00 [facility] Systolic blood 2020-09-12 128 mm[Hg] University of pressure 23:45:00 [facility] Branch Diastolic blood 2020-09-12 66 mm[Hg] University o f pressure 23:45:00 [facility] Respiratory rate 2020-09-12 18 /min University of 21:30:00 [facility] Oxygen saturation 2020-09-12 92 /min University of in Arterial blood 21:30:00 [facility] by Pulse oximetry Branch Body height 2020-09-12 162.6 cm University of 20:00:00 [facility] Body weight 2020-09-12 90.719 kg University of 20:00:00 [facility] BMI 2020-09-12 34.33 kg/m2 University of 20:00:00 [facility] Heart rate 2020-09-11 82 /min University of 00:51:00 [facility] Oxygen saturation 2020-09-11 98 /min University of in Arterial blood 00:51:00 [facility] by Pulse oximetry Branch Systolic blood 2020-09-11 91 mm[Hg] University of pressure 00:30:00 [facility] Diastolic blood 2020-09-11 73 mm[Hg] University o f pressure 00:30:00 [facility] Body temperature 2020-09-10 36.5 Lien University of 23:46:00 [facility] Respiratory rate 2020-09-10 18 /min University of 23:46:00 [facility] Body height 2020-09-10 162.6 cm University of 23:46:00 [facility] Body weight 2020-09-10 90.992 kg University of 23:46:00 [facility] BMI 2020-09-10 34.43 kg/m2 University of 23:46:00 [facility] Systolic blood 2020-09-10 133 mm[Hg] University of pressure 22:35:00 [facility] Branch Diastolic blood 2020-09-10 72 mm[Hg] University o f pressure 22:35:00 [facility] Heart rate 2020-09-10 104 /min University 22:27:00 [facility] Body temperature 2020-09-10 36.72 Lien University of 22:27:00 [facility] Respiratory rate 2020-09-10 18 /min University of 22:27:00 [facility] Body height 2020-09-10 162.6 cm University of 22:27:00 [facility] Body weight 2020-09-10 90.992 kg University of 22:27:00 [facility] BMI 2020-09-10 34.43 kg/m2 University 22:27:00 [facility] Height/Length 2021-11-19 162.56 cm Measured 12:39:49 Weight [...] 2020-03-15 129 mm[Hg] University of pressure 13:32:00 [facility] Diastolic blood 2020-03-15 71 mm[Hg] University o f pressure 13:32:00 [facility] Heart rate 2020-03-15 85 /min University of 13:32:00 [facility] Body temperature 2020-03-15 36.78 Lien [facility] of 13:32:00 [facility] Respiratory rate 2020-03-15 18 /min University of 13:32:00 [facility] Body height 2020-03-15 162.6 cm University of 13:32:00 [facility] Body weight 2020-03-15 78.926 kg University of 13:32:00 [facility] BMI 2020-03-15 29.87 kg/m2 University of 13:32:00 [facility] Systolic blood 2020-03-07 114 mm[Hg] University of pressure 01:00:00 [facility] Diastolic blood 2020-03-07 55 mm[Hg] University o f pressure 01:00:00 [facility] Heart rate 2020-03-07 99 /min [place] of 01:00:00 [facility] Body temperature 2020-03-07 36.67 Lien [place] of 01:00:00 [facility] Respiratory rate 2020-03-07 20 /min [place] of 01:00:00 [facility] Oxygen saturation 2020-03-07 98 /min [facility] in Arterial blood 01:00:00 [facility] by Pulse oximetry [place] Body weight 2020-03-06 68.04 kg University of 23:00:00 [facility] BMI 2020-03-06 25.75 kg/m2 University of 23:00:00 [facility] Body height 2020-03-06 162.6 cm University of 22:57:00 [facility] Systolic blood 2019-06-23 146 mm[Hg] University of pressure 02:08:00 [facility] Diastolic blood 2019-06-23 89 mm[Hg] University o f pressure 02:08:00 [facility] Heart rate 2019-06-23 130 /min made aware University of 02:08:00 [facility] Body temperature 2019-06-23 36.72 Lien [place] of 02:08:00 [facility] Respiratory rate 2019-06-23 18 /min University of 02:08:00 [facility] Oxygen saturation 2019-06-23 95 /min [facility] in Arterial blood 02:08:00 [facility] by Pulse oximetry [place] Body weight 2019-06-23 68.04 kg [facility] 00:05:00 [facility] BMI 2019-06-23 25.75 kg/m2 [facility] 00:05:00 [facility] Systolic blood 2019-06-10 117 mm[Hg] University of pressure 19:43:00 [facility] Diastolic blood 2019-06-10 66 mm[Hg] [place] o pressure 19:43:00 [facility] Heart rate 2019-06-10 110 /min [facility] 19:43:00 [facility] Body temperature 2019-06-10 37.06 Lien [facility] 19:43:00 [facility] Respiratory rate 2019-06-10 18 /min [facility] 19:43:00 [facility] Body weight 2019-06-10 63.504 kg [facility] 19:43:00 [facility] BMI 2019-06-10 24.03 kg/m2 [facility] 19:43:00 [facility] Oxygen saturation 2019-06-10 97 /min [facility] Arterial blood 19:43:00 [facility] by Pulse oximetry [place] Procedures Procedure Date / Time Performing Clinician Source Performed URINALYSIS 2023-05-01 17:17:00 Sepideh Palmer [facility] POCT TEST 2023-05-01 17:17:00 Sepideh Palmer [facility] CREATINE KINASE 2023-05-01 16:44:00 Sepideh Palmer [facility] COMP. METABOLIC PANEL 2023-05-01 16:44:00 Sepideh Palmer [facility] ([id number]) [facility] CBC WITH DIFF 2023-05-01 16:44:00 Sepideh Palmer [facility] AUTHORIZATION FOR 2022-03-05 05:01:00 Doctor Unassigned, No [facility] RELEASE OF PHI Name Medical Branch [id number] 2020-09-13 00:00:00 [facility] ADC / LCC - DRUG SCREEN 2020-09-12 22:07:00 [facility] TRI[facility] MAGNESIUM 2020-09-12 21:06:00 Gage Reid [place] o f [facility] COMP. METABOLIC PANEL 2020-09-12 21:06:00 Gage Reid [facility] ([id number]) Medical Branch CBC WITH DIFF 2020-09-12 21:06:00 Gage Reid [facility] ECHO ROUTINE W/DOPPLER 2020-09-12 20:43:53 Fabrice Rivera [facility] COLOR Medical Branch CONSENT/REFUSAL FOR 2020-09-12 19:55:29 Doctor Unassigned, No [facility] DIAGNOSIS AND TREATMENT [facility] Medical Branch ASSIGNMENT OF BENEFITS 2020-09-12 19:39:54 Doctor Unassigned, No [facility] CBC WITH DIFF 2020-09-11 00:30:00 Gage Reid [facility] COVID-19 (ID NOW RAPID 2020-09-11 00:15:00 Gage Reid [facility] TESTING) Medical Branch CONSENT/REFUSAL FOR 2020-09-10 23:34:19 Doctor Unassigned, No [facility] DIAGNOSIS AND TREATMENT [facility] Medical Branch ASSIGNMENT OF BENEFITS 2020-09-10 23:33:44 Doctor Unassigned, No [facility] GROUP B STREPTOCOCCUS BY 2020-09-10 22:45:00 Gage Reid [facility] PCR Medical Branch L&D VISIT 2020-09-10 06:01:00 Doctor Unassigned, No [facility] (NON-DELIVERED) [facility] EXTERNAL PROVIDER 2020-04-18 05:01:00 Doctor Unassigned, No [facility] RECORDS [facility] ADC / LCC - DRUG SCREEN 2020-03-15 14:26:00 Gage Reid [facility] TRIAGE Medical Branch ASSIGNMENT OF BENEFITS 2020-03-15 13:18:47 Doctor Unassigned, No [facility] POCT URINALYSIS W/O 2020-03-15 00:00:00 Gage Reid [facility] SPECIFIC GRAVITY [facility] Branch POCT TEST 2020-03-07 00:38:00 Edson Chambers [facility] Medical [place] MAGNESIUM 2020-03-06 23:24:00 Edson Chambers [facility] COMP. METABOLIC PANEL 2020-03-06 23:24:00 Edson Chambers [facility] ([id number]) Medical Branch SALICYLATE 2020-03-06 23:24:00 Edson Chambers [facility] ETHANOL 2020-03-06 23:24:00 Edson Chambers [facility] CBC WITH DIFFERENTIAL 2020-03-06 23:24:00 [facility] URINALYSIS 2020-03-06 23:21:00 Edson Chambers [facility] ADC / LCC - DRUG SCREEN 2020-03-06 23:21:00 [facility] 2020-03-06 23:04:57 Edson Chambers [facility] NOTICE OF PRIVACY 2019-06-10 19:40:45 Doctor Unassigned, No [facility] PRACTICES Name [facility] Branch CONSENT/REFUSAL FOR 2019-06-10 19:34:31 Doctor Unassigned, No [facility] Encounters Start End Encounter Admission Attending Care Care Encounter Source Date/Time Date/Time Type Type Clinicians Facility Department ID 2021-08-31 Outpatient P [facility] RACHEL [id number] [facility] Outpatient P [facility] RACHEL [id number] Univers 04:16:00 [facility] 2021-08-31 Outpatient P [facility] RACHEL [id number] Univers 04:15:28 [facility] 2020-09-13 Inpatient Sherman Fabian [facility] [id number] [facility] 22:39:00 25 [facility] 2020-07-25 Inpatient Rj Diez [facility] PSY [id number] 10:46:00 Rj Diez - 923 [facility] 2023-08-05 2023-08-05 Outpatient Char PAGAN [facility] [id number] Univers 15:00:00 15:00:00 JYOTI ity [facility] 2023-08-05 2023-08-05 Outpatient GC_GCBZW_Ka PRIV PRIV [id number] [facility] 00:00:00 00:00:00 diyala_S [id number] Medic al 2023-07-20 2023-07-20 Outpatient GC_GCBZW_Ka PRIV PRIV [id number] [facility] 00:00:00 00:00:00 abhijit_S [id number] Medic al 2023-05-01 2023-05-01 Emergency X [facility] ERT [id number] Univers 11:30:00 14:17:00 SEPIDEH ity [facility] 2023-05-01 2023-05-01 Emergency [facility] [id number] Univers 11:30:00 14:17:00 Sepideh LINK [id number] ity of [place] 4.2.7.2.686 [facility] [id number] [address] 2023-01-13 2023-01-13 Emergency X [facility] ERT [id number] Univers 21:42:00 22:24:00 NJMAKAYLA ity [facility] 2023-01-13 2023-01-13 [facility] [id number] Univers 21:42:00 22:24:00 Cleopatra Rosales NIKOLAY [id number] ity of [place] [id number] [facility] [id number] [address] 2022-03-05 2022-03-05 Orders Doctor AVINA 1.2.840.114 [id number] Univers 00:00:00 00:00:00 Only Unassigned, ZA [id number] ity of [facility] 4.2.7.2.686 [facility] [phone] [place] [address] Branch 2021-09-23 2021-09-23 Outpatient R JEANETTE GAGE [facility] [id number] Univers 15:00:00 15:00:00 ity of [facility] 2021-08-21 2021-08-21 Outpatient R JEANETTE GAGE [facility] [id number] Univers 09:30:00 09:30:00 ity of [facility] 2020-09-12 2020-09-12 [facility] Jeanette [facility] [id number] 13:34:00 18:35:00 Encounter Cam Roberts [id number] [place] [id number] [place] [id number] [facility] 2020-09-12 2020-09-12 [facility] Gage Reid [facility] [id number] [facility] 13:34:00 18:35:00 Encounter Cam Roberts [id number] ity of [place] [id number] [address] 2020-09-12 2020-09-12 Outpatient R JEANETTE [facility] [id number] Univers 09:45:00 09:45:00 ity of [facility] 2020-09-11 2020-09-11 Outpatient R [facility] [id number] Univers 15:45:00 15:45:00 ity of [facility] 2020-09-11 2020-09-11 Tye Jeanette [facility] 1.2.840.114 [id number] 00:00:00 00:00:00 Cam Roberts [id number] [place] [id number] Professio [id number] [address] 2020-09-11 2020-09-11 [facility] 1.2.840.114 [id number] Univers 00:00:00 00:00:00 Cam Roberts [id number] i ty of [id number] [phone] Dc dical [address] 2020-09-11 2020-09-11 [facility] [id number] Univers 00:00:00 00:00:00 Management Cam Roberts [id number] ity of [place] [phone] Dc dical [address] 2020-09-10 2020-09-10 [facility] 1.2.840.114 [id number] Univers 17:30:00 19:10:00 Encounter Cam Roberts [id number] ity of [id number] [id number] [facility] 083 Branch 2020-09-10 2020-09-10 Routine Reid [facility] [id number] Univers 16:09:56 17:20:04 Jewel Link [id number] ity of Visit [place] [facility] [phone] Dc dical nal 134 [facility] 2020-09-10 2020-09-10 Outpatient R [facility] [id number] Univers 16:00:00 16:00:00 ity [facility] 2020-09-03 2020-09-03 Outpatient R [facility]TE [facility] [id number] Univers 13:00:00 13:00:[facility] 2020-08-31 2020-08-31 Outpatient R ADUM, [facility] [id number] Univers 08:30:00 08:30:00 [facility] 2020-08-21 2020-08-21 [facility] [id number] Univers 10:30:00 10:30:00 [facility] 2020-08-14 2020-08-14 [facility] [id number] Univers 10:30:00 10:30:00 [facility] 2020-08-13 2020-08-13 Outpatient R [facility] [id number] Univers 11:00:00 11:00:00 ity [facility] 2020-07-25 2020-08-02 Inpatient 1 Rj Diez [facility] PSY [id number] St. 10:07:00 13:01:00 Rj Diez [facility] 2020-07-20 2020-07-20 Outpatient R ADUM, [facility] [id number] Univers 08:30:00 08:30:00 [facility] 2020-07-17 2020-07-17 Outpatient R ADUM, [facility] [id number] Univers 13:30:00 13:30:00 [facility] 2020-07-12 2020-07-12 Outpatient R GAGE REID [facility] [id number] Univers 14:30:00 14:30:00 ity of [facility] 2020-06-19 2020-06-19 Outpatient R GAGE REID [facility] [id number] Univers 14:30:00 14:30:00 ity of [facility] 2020-04-30 2020-04-30 Outpatient R [facility] [id number] Univers 08:45:00 08:45:00 ity of [facility] 2020-04-26 2020-04-26 Desk Interviewer Ultrasound, [facility] 1.2 .840.114 [id number] Univers 10:31:59 11:51:31 Visit 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 4.2.7.2.686 Rajeev as MATERNAL [phone] Med ical & CHILD [address] [place] [address] 2020-04-26 2020-04-26 Outpatient P [facility] [id number] Univers 10:15:00 10:15:00 ity of [facility] 2020-04-26 2020-04-26 Letter Doctor FABRICE 1.2.840.114 [id number] Univers 00:00:00 00:00:00 (Out) Unassigned, ZA 350.1.13.10 ity of [place] [facility] 4.2.7.2.686 Rajeev as [phone] [facility] 044 [place] 2020-04-20 2020-04-20 Outpatient R [facility] [id number] Univers 15:00:00 15:00:00 ity of [facility] 2020-04-20 2020-04-20 Telemedici Fellow, Gal [facility] Rmp [facility] U NIVERSIT 1.2.840.114 [id number] Univers 08:18:30 08:33:30 ne Visit [facility] 350.1.13.10 ity of [facility] 4.2.7.2.[place] [phone] [facility] 113 Branch 2020-04-18 2020-04-18 Orders Doctor FABRICE 1.2.840.114 [id number] Univers 00:00:00 00:00:00 Only Unassigned, ZA 350.1.13.10 ity of [facility] 4.2.7.2.686 Rajeev as [phone] [facility] 009 [place] 2020-04-12 2020-04-12 Outpatient R JEANETTE GAGE [facility] [id number] Univers 08:45:00 08:45:00 ity of [facility] 2020-04-06 2020-04-06 Telemedici Fellow, Gal [facility] Rmp m U NIVERSIT 1.2.840.114 [id number] Univers 08:00:00 08:30:00 ne Visit Olga Lidia Corral [facility] [id number] ity of CLINICS 4[place]2.[place].2.[place] [id number] [facility] 113 [place] 2020-04-06 2020-04-06 Outpatient R [facility] [id number] Univers 08:00:00 08:00:00 ity of [facility] 2020-03-30 2020-03-30 Case Rigo [facility] [id number] Univers 00:00:00 00:00:00 Management Sanjana Link 350.1.13.10 ity of [place] [phone] Dc dic[address] 2020-03-20 2020-03-20 Refill Gage Reid [facility] [id number] Univers 00:00:00 00:00:00 Cam Nikolay 350.1.13.10 i ty of [place] 4[place].2.[place] [phone] Dc dic[address] 2020-03-15 2020-03-15 Initial Reid [facility] [id number] Univers 08:20:24 09:19:11 Jewel Link 350.1.13.10 ity of Visit [place] 4[place] [phone] Dc dic[address] 2020-03-15 2020-03-15 Outpatient R JEANETTE GAGE [facility] [id number] Univers 08:00:00 08:00:00 ity of [facility] 2020-03-15 2020-03-15 Orders Doctor FABRICE 1.2.840.114 [id number] Univers 00:00:00 00:00:00 Only Unassigned, ZA 350.1.13.10 ity of [place] [facility] 4.2.7.2.686 Rajeev as [phone] [facility] 009 [place] 2020-03-15 2020-03-15 Telephone Gage Reid [facility] 1.2.840.114 [id number] Univers 00:00:00 00:00:00 Jewel Link 350.1.13.10 i ty of [place] 4[place].2.[place] [phone] Dc dical nal 134 [facility] 2020-03-06 2020-03-06 Emergency Edson Chambers [facility] 1.2.840.114 [id number] Univers 17:55:54 22:34:00 Mary Link 350.1.13.10 i ty of [place] 4[place].2.[place] [id number] [facility] 084 [place] 2020-03-06 2020-03-06 Emergency X Edson CHAMBERS [facility] ERT [id number] Univers 17:55:54 17:55:54 ity of [facility] 2020-02-01 2020-02-01 Telephone Neville [facility] 1.2.840.114 [id number] Univers 00:00:00 00:00:00 Ang Rmchp BLENDING MACHINE OPERATOR 350.1.13.10 ity of [facility] 4.2.7.2.686 Rajeev as MATERNAL [phone] Med ical & CHILD [address] [place] [address] 2019-06-22 2019-06-22 Emergency Deedee, TRAUMA [id number] Univers 19:07:21 21:13:00 Porter BRANNON 350.1.13.10 [place] [phone] [facility] 014 [place] 2019-06-10 2019-06-10 Emergency Yvon [facility] 1.2.840.114 [id number] Univers 14:44:46 15:34:00 Sepideh Link 350.1.13.10 ity of [place] 4[place] [id number] [facility] 084 Branch 2019-06-10 2019-06-10 Orders Doctor FABRICE 1.2.840.114 [id number] 00:00:00 00:00:00 Only Unassigned, ZA 350.1.13.10 ity of [place] [facility] 4.2.7.2.686 [facility] [phone] [facility] 009 Branch Results Test Description Test Time Test Comments Results Result Comments Source POCT TEST 2023-05-01 17:17:00 Test Item Value Reference Range Interpretation Comme nts POCT PREG (test code = 1605) Negative On board controls acceptable with C Line (test code = 3574) Yes POCT PREG LOT # (test code = 3575) HCG [id number] POCT PREG TEST DATE (test code = 3576) 08/07/2024 Lab Interpretation (test code = 74043-8) [facility] [id number] 07:10:00 Test Item Value Reference Range Interpretation [...] NORMAL NORMAL code = PLTMR) 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 0IUnits/ml (test code = are considered positive RUBSC) inaccordance wi th the CLSI guidelines and based on the [employer] S tandard for Anti-Rubell a serum as anindicator of immune status and a br eakpoint to detect mostseropositiv e persons. Comments to High School History Teacher: please use blood alreadyin the labB [id number] 07:26:00 Test Item Value Reference Range Interpretation Comments HEMOGLOBIN (test code = HGB) 10.9 g/dL 10.7-13.9 N HEMATOCRIT (test code = HCT) 34.6 % 32.1-42.1 N AG HEPATITIS B [id number] 04:56:00 Test Item Value Reference Range Interpretation Comments AG HEPATITIS B SURFACE (test code NONREACTIVE NONREACTIVE = HBSAG) IS CONSENT FORM SIGNED FOR HIV TESTING? YAB HEPATITIS C [id number] 04:56:00 Test Item Value Reference Range Interpretation Comments AB HEPATITIS C (test code = NONREACTIVE NONREACTIVE HCVAB) SIGNAL TO CUTOFF (test code = 0.10 <0.80 N CUTOFF) IS CONSENT FORM SIGNED FOR HIV TESTING? YAB [id number] 04:56:00 Test Item Value Reference Range Interpretation Comments AB TREPONEMA (test code = TREPAB) NONREACTIVE NONREACTIVE IS CONSENT FORM SIGNED FOR HIV TESTING? YAB HIV 1 04:56:00 Test Item Value Reference Range Interpretation Comments AB HIV 1 2 (test code = ANM29YR) NONREACTIVE IS CONSENT FORM SIGNED FOR HIV TESTING? YAG HEPATITIS B [id number] 04:56:00 Test Item Value Reference Range Interpretation Comments AG HEPATITIS B SURFACE (test code NONREACTIVE NONREACTIVE = HBSAG) IS CONSENT FORM SIGNED FOR HIV TESTING? YAB HEPATITIS C [id number] 04:56:00 Test Item Value Reference Range Interpretation Comments AB HEPATITIS C (test code = NONREACTIVE NONREACTIVE HCVAB) SIGNAL TO CUTOFF (test code = 0.10 <0.80 N CUTOFF) IS CONSENT FORM SIGNED FOR HIV TESTING? YAB [id number] 04:56:00 Test Item Value Reference Range Interpretation Comments AB TREPONEMA (test code = TREPAB) NONREACTIVE NONREACTIVE IS CONSENT FORM SIGNED FOR HIV TESTING? YAB HIV 1 04:56:00 Test Item Value Reference Range Interpretation Comments AB HIV 1 2 (test NONREACTIVE NONREACTIVE [facility] code = EKT02PV) 4th Gen HIV Ag/Ab Combo Screen IS CONSENT FORM SIGNED FOR HIV TESTING? YAG HEPATITIS B [id number] 04:41:00 Test Item Value Reference Range Interpretation Comments AG HEPATITIS B SURFACE (test code NONREACTIVE NONREACTIVE = HBSAG) IS CONSENT FORM SIGNED FOR HIV TESTING? YAB HEPATITIS C [id number] 04:41:00 Test Item Value Reference Range Interpretation Comments AB HEPATITIS C (test code = HCVAB) NONREACTIVE SIGNAL TO CUTOFF (test code = CUTOFF) <0.80 IS CONSENT FORM SIGNED FOR HIV TESTING? YAB [id number] 04:41:00 Test Item Value Reference Range Interpretation Comments AB TREPONEMA (test code = TREPAB) NONREACTIVE NONREACTIVE IS CONSENT FORM SIGNED FOR HIV TESTING? YAB HIV 1 04:41:00 Test Item Value Reference Range Interpretation Comments AB HIV 1 2 (test code = TAY43UB) NONREACTIVE IS CONSENT FORM SIGNED FOR HIV TESTING? YCOMPREHENSIVE METABOLIC [id number] 02:39:00 Test Item Value Reference Range Interpretation [...] code = ALKP) COVID 19 Asymptomatic IH [id number] 00:09:00 Test Item Value Reference Range Interpretation [...] and/o r diagnosis of CO VID-19 under Uhwrlof45 4(b)(1) of the Act, 21 U.[place] .C. 360bbb-3(b)(1), unless theauthorizatio n is terminated or r evoked sooner. CBC W/AUTO [id number] 00:00:00 Test Item Value Reference Range Interpretation Comments WHITE BLOOD CELL (test 20.9 K/mm3 6.6-12.1 HH RESUL TS CALLED TO code = WBC) helene.READ BACK & CONFIRMED? yes. BY F.LAB.MR 8280. RED BLOOD CELL (test 3.61 M/mm3 3.45-5.01 [...] PLTMR) ADC / LCC - DRUG SCREEN [id number] 22:29:00 Test Item Value Reference Range Interpretation Comments BENZO U (test code = Presumptive Negative A 8024701461) Positive ARNOLD U (test code = Negative Negative 0531453754) AMPHET (test code = Negative Negative 9004329818) THC (test code = Presumptive Negative A Confirmatio n of 9087060119) Positive Presumptive Positive THC result requires physician order . METHADONE (test code Negative Negative = 0595423877) Meth U (test code = Negative Negative 0487818404) OPIATES (test code = Presumptive Negative A 4184791546) Positive Cocaine Metabolite Negative Negative (test code = 4120877397) PROPOXY (test code = Negative Negative 0860413776) Tric U (test code = Negative Negative 6634947886) PCP (test code = Negative Negative 2966741576) OXYCOD (test code = Negative Negative 3152393015) YAMIL (test code = Urine Drug Cutoff [...] testing). Lab Interpretation Abnormal (test code = 71421-8) [facility]. METABOLIC PANEL (62595)2020-09-12 21:50:00 Test Item Value Reference Range Interpretation Comments NA (test code = 133 mmol/L 135-145 L 2621855386) K (test code = 3.8 mmol/L 3.5-5 9794918006) CL (test code = 106 mmol/L 98-108 5080803186) CO2 TOTAL (test code = 23 mmol/L 23-31 8863008475) AGAP (test code = 2-16 8938036519) BUN (test code = 10 mg/dL 7-23 0789000525) GLUCOSE (test code = 106 mg/dL 70-110 1947129061) CREATININE (test code = 0.53 mg/dL 0.5-1.04 7138148228) TOTAL BILI (test code = 0.3 mg/dL 0.1-1.2 6476715145) CALCIUM (test code = 8.3 mg/dL 8.6-10.6 L 2639349773) T PROTEIN (test code = 6.0 g/dL 6.3-8.2 L 6671542438) ALBUMIN (test code = 3.1 g/dL 3.5-5 L 1620574240) ALK PHOS (test code = 185 U/L 34-122 H 7472592748) ALTv (test code = 15 U/L 5-35 1742-6) AST(SGOT) (test code = 24 U/L 13-40 0860222124) eGFR Calculation mL/min/1.73m2 (Non-) (test code = 7876021572) eGFR Calculation mL/min/1.73m2 () (test code = 8268701776) YAMIL (test code = YAMIL) Association of [...] tests). Lab Interpretation Abnormal (test code = 78701-5) [facility] 21[facility]50:00 Test Item Value Reference Range Interpretation Comments MAGNESIUM (test code = 3833669730) 1.8 mg/dL 1.7-2.4 Lab Interpretation (test code = Normal 57374-7) [facility] WITH [id number] 21:37:00 Test Item Value Reference Range Interpretation Comments WBC (test code = See_Comment H [Automated 5219-2) message] The system which generated this result transmit bhavya reference range : 4.30 - 11.10 10*3/?L. The reference range was not used to interpret this result as normal/abnormal . RBC (test code = See_Comment L [Automated 190-8) message] The system which generated this result [...] RDW-SD (test code = 49.1 fL 39-49.9 55559-9) RDW-CV (test code = 14.3 % 12-15.5 788-0) PLT (test code = See_Comment [Automated 777-3) message] The system which generated this result transmit bhavya reference range : 166 - 358 10*3/ ?L. The reference range was not u sed to interpret th is result as normal/abnormal . MPV (test code = 10.0 fL 9.5-12.9 76327-3) NRBC/100 WBC (test See_Comment [Automat ed code = 0460634294) message] The system which generated this result transmit bhavya reference range : 0.0 - 10.0 /100 WBCs. The reference range was not used to interpret this result as normal/abnormal . NRBC x10^3 (test code <0.01 See_Comment [Auto mated = 6843566227) message] The system which generated this result transmit bhavya reference range : 10*3/?L. The reference range was not used to interpret this result as normal/abnormal . GRAN MAT (NEUT) % 77.1 % (test code = 770-8) IMM GRAN % (test code 1.00 % = 3867259216) LYMPH % (test code = 15.4 % 736-9) MONO % (test code = 5.1 % 5905-5) EOS % (test code = 1.1 % 713-8) BASO % (test code = 0.3 % 706-2) GRAN MAT x10^3(ANC) 11.59 10*3/uL 1.88-7.09 H (test code = 6446755131) IMM GRAN x10^3 (test 0.15 10*3/uL 0-0.06 H code = 5135489068) LYMPH x10^3 (test code 2.32 10*3/uL 1.32-3.29 = 731-0) MONO x10^3 (test code 0.76 10*3/uL 0.33-0.92 = 742-7) EOS x10^3 (test code = 0.17 10*3/uL 0.03-0.39 711-2) BASO x10^3 (test code 0.05 10*3/uL 0.01-0.07 = 704-7) Lab Interpretation Abnormal (test code = 24696-1) [facility]REPTOC[facility]CC[facility] BY [id number] 14:02:00 Test Item Value Reference Range Interpretation Comments Group B Streptococcus by PCR (test Negative Negative code = 15173-6) Lab Interpretation (test code = Normal 15489-4) [facility]OVID[facility] (ID NOW RAPID TESTING)2020-09-11 00:51:00 Test Item Value Reference Range Interpretation Comments SARS-CoV-2 Rapid ID NOW Not Detected Not Detected (test code = 44274-6) YAMIL (test code = YAMIL) ID NOW COVID-19 Assay is an isothermal nucleic acid amplification test intended for the qualitative detection of nucleic acid from SARS-CoV-2 viral RNA in nasopharyngeal (DUST MIXER) specimens. It is used under Emergency Use [...] indicated. Lab Interpretation Normal (test code = 03374-9) [facility] WITH [id number] 00:50:00 Test Item Value Reference Range Interpretation [...] (test code = 50.4 fL 39-49.9 H 82107-3) RDW-CV (test code = 14.5 % 12-15.5 788-0) PLT (test code = See_Comment [Automated 777-3) message] The sy stem which generated this result transmitted reference range : 166 - 358 10*3/ ?L. The reference r miguelina was not used to interpret this result as normal/abnormal . MPV (test code = 9.9 fL 9.5-12.9 50191-5) NRBC/100 WBC (test See_Comment [Automat ed code = 7283424916) message] The system which generated this result transmitted reference range : 0.0 - 10.0 /100 WBCs. The refer ence range was not u sed to interpret th is result as normal/abnormal . NRBC x10^3 (test code <0.01 See_Comment [Auto mated = 1597666891) message] The s ystem which generated this result transmitted reference range : 10*3/?L. The reference range was not used to interpret this result as normal/abnormal . GRAN MAT (NEUT) % 76.4 % (test code = 770-8) IMM GRAN % (test code 0.90 % = 1182147414) LYMPH % (test code = 16.0 % 736-9) MONO % (test code = 5.2 % 5905-5) EOS % (test code = 1.3 % 713-8) BASO % (test code = 0.2 % 706-2) GRAN MAT x10^3(ANC) 9.39 10*3/uL 1.88-7.09 H (test code = 7686616074) IMM GRAN x10^3 (test 0.11 10*3/uL 0-0.06 H code = 8018886049) LYMPH x10^3 (test code 1.97 10*3/uL 1.32-3.29 = 731-0) MONO x10^3 (test code 0.64 10*3/uL 0.33-0.92 = 742-7) EOS x10^3 (test code = 0.16 10*3/uL 0.03-0.39 711-2) BASO x10^3 (test code 0.03 10*3/uL 0.01-0.07 = 704-7) Lab Interpretation Abnormal (test code = 21862-9) [facility]woodLactate Samzmlqobrldo2079-76-38 08:28:44 Test Item Value Reference Range Interpretation Comments LDH (test code = LDH) 166 U/L 120-246 Comprehensive Metabolic Boaio3958-42-65 08:16:47 Test Item Value Reference Range Interpretation [...] = Lipemia) 0 g/dL 1-2 Comprehensive Metabolic Ilepk5643-61-18 08:16:47 Test Item Value Reference Range Interpretation [...] ag e have not been validated by [facility] MDRD study and should be interpreted [...] ag e have not been validated by [facility] MDRD study and should be interpreted [...] = 0 g/dL 1-2 Lipemia) Comprehensive Metabolic Wvwrr8869-94-25 08:16:47 Test Item Value Reference Range Interpretation [...] ag e have not been validated by [facility] MDRD study and should be interpreted [...] ag e have not been validated by [facility] MDRD study and should be interpreted [...] g/dL 1-2 Lipemia) Complete Blood Count without Anlo8049-50-03 08:09:40 Test Item Value Reference Range Interpretation [...] = NRBC Abs) 0.00 x10 N Creatinine Wdatv4880-14-89 15:39:13 Test Item Value Reference Range Interpretation Comments U Creatinine (test 89.1 mg/dL N Reference ranges have code = U Creatinine) not bee n established for this assay. Protein Ofvqs2521-68-07 15:39:13 Test Item Value Reference Range Interpretation Comments U Protein (test code = U Protein) 10.4 mg/dL 1.0-14.0 Complete Blood Count without Dcoe2305-32-86 06:39:12 Test Item Value Reference Range Interpretation [...] x10 N US OB Greater Than 14 Actjh4767-71-66 19:21:42Patient: MARTINE LENTZ Date/Time07/26/2020 17:29 CDTReason for Examper md order;Other (please specify)ReportOB ULTRASOUND LIMITEDLocation: [id number] HISTORY: Confirm pregnancyLMP gest.age by LMP 32 [...] ANATOMY:There is suboptimal visualization of the intracranial s tructures, face. gender not examined. Four-chamber heart view is suboptimal. The patientterminated the exam early.IMPRESSION:Wetzel live IUP of 32 weeks 3 days. No abnormalities demonstrated. Patient terminated the exam early. Final Dictated by: MD De La Rosa Maria VDictated DT/TM: 07/26/2020 7:17 pmSigned by: MD De La Rosa Maria VSigned (Electronic Signature): 07/26/2020 7:21 pmBeta HCG Lcfgyqpjgxpn5222-88-24 14:42:56 Test Item Value Reference Range Interpretation Comments HCG, Beta Quantitative 75971.1 mIU/mL N 17- 54 (test code = HCG, Beta (Non- )?41 Quantitative) (Post-menopaus al) RPR Lyemsriymbt3016-82-12 12:50:28 Test Item Value Reference Range Interpretation Comments RPR Qual (test code = RPR Qual) Non-Reactive Non-Reactive Reactive Control (test code = Reactive Reactive Control) Weak Reactive Control (test Weak Reactive code = Weak Reactive Control) Non-Reactive Control (test code Non-Reactive = Non-Reactive Control) Lot # (test code = Lot #) [id number] N Expiration Dt (test code = 08-01-2021 N Expiration Dt) Lipid Eaguc2831-47-08 07:58:23 Test Item Value Reference Range Interpretation [...] LDL/HDL Ratio=L DL Calc/HDL Chol Thyroid Stimulating Ebzlllg3184-32-07 07:58:23 Test Item Value Reference Range Interpretation Comments TSH (test code = TSH) 1.312 mcIU/mL 0.550-4.780 Hemoglobin O6y9613-29-95 07:54:16 Test Item Value Reference Range Interpretation Comments Hemoglobin A1c (test code 5.1 % 4.0-5.8 Di abetic >=6.5 = Hemoglobin A1c) %Prediabet es 5.7-6.4 %Normal <5.7 % [facility] - DRUG SCREEN [id number] 22:40:00 Test Item Value Reference Range Interpretation Comments BENZO U (test code = Negative Negative 4145355772) ARNOLD U (test code = Negative Negative 7471189441) AMPHET (test code = Negative Negative 5892620515) THC (test code = Negative Negative 6337730058) METHADONE (test code = Negative Negative 6553866072) Meth U (test code = Negative Negative 6043552627) OPIATES (test code = Negative Negative 1017480983) Cocaine Metabolite (test Negative Negative code = 4503938832) PROPOXY (test code = Negative Negative 6841984613) Tric U (test code = Negative Negative 4618410595) PCP (test code = Negative Negative 3620786065) OXYCOD (test code = Negative Negative 3384282432) YAMIL (test code = YAMIL) Urine Drug [...] testing). Lab Interpretation (test Normal code = 49950-7) [facility]AL[facility] W/O SPECIFIC [id number] 14:00:00 Test Item Value Reference Range Interpretation [...] code = 3257) N/A Negative - Negative [facility]woodCOMP. METABOLIC PANEL (07029)2020-03-07 00:39:00 Test Item Value Reference Range Interpretation Comments NA (test code = 139 mmol/L 135-145 7799195757) K (test code = 3.9 mmol/L 3.5-5 8125324569) CL (test code = 108 mmol/L 98-108 6800089927) CO2 TOTAL (test code = 22 mmol/L 23-31 L 0552350812) AGAP (test code = 2-16 8505647641) BUN (test code = 5 mg/dL 7-23 L 3455768991) GLUCOSE (test code = 103 mg/dL 70-110 2848172892) CREATININE (test code = 0.44 mg/dL 0.5-1.04 L 3417843379) TOTAL BILI (test code = <0.1 0.1-1.1 L 2230659462) CALCIUM (test code = 9.7 mg/dL 8.6-10.6 7628219577) T PROTEIN (test code = 6.2 g/dL 6.3-8.2 L 8266092827) ALBUMIN (test code = 3.6 g/dL 3.5-5 6050476031) ALK PHOS (test code = 56 U/L 34-122 0740487749) ALTv (test code = 10 U/L 5-35 1742-6) AST(SGOT) (test code = 20 U/L 13-40 1662361377) eGFR Calculation mL/min/1.73m2 (Non-) (test code = 3356442903) eGFR Calculation mL/min/1.73m2 () (test code = 6083976748) YAMIL (test code = YAMIL) Association of [...] tests). Lab Interpretation Abnormal (test code = 56986-4) [facility]wood[facility]ETAMINOPHEN2020-05-06 00:39:00 Test Item Value Reference Range Interpretation Comments ACETAMINOP (test code = <10.0 10-30 L 9232032547) YAMIL (test code = YAMIL) Toxic: Greater than 200 ug/mL @ 4 hour post ingestion or greater than 50 ug/mL @ 12 hour post ingestion Lab Interpretation (test Abnormal code = 87002-8) [facility]woodSALICYLATE2020-05-06 00:39:00 Test Item Value Reference Range Interpretation Comments SALICYLATE (test code <10 mg/L = 2062441304) YAMIL (test code = YAMIL) Therapeutic Range: ? Analgesic and Antipyretic Use ? 20-100 mg/L ? ? Anti-Inflammatory Use ? 100-250 mg/L Toxic Range: ? Greater than 300 mg/L [facility]woodPOCT [id number] 00:38:00 Test Item Value Reference Range Interpretation Comments POCT PREG (test code = 1605) positive On board controls acceptable with present C Line (test code = 3574) POCT PREG LOT # (test code = 3575) [id number] POCT PREG TEST DATE (test 06-01-2021 code = 3576) Lab Interpretation (test code = Normal 05814-5) [facility]woodETHANOL2020-05-06 00:37:00 Test Item Value Reference Range Interpretation Comments ALCOHOL (test code = 88 mg/dL 2290174501) YAMIL (test code = YAMIL) <10 Egxglsgb06-460 Toxic>100 Depression of ADMINISTRATIVE INTERN>400 Fatalities Reported [facility]woodMAG[facility]UM2020-05-06 00:36:00 Test Item Value Reference Range Interpretation Comments MAGNESIUM (test code = 5134021423) 1.6 mg/dL 1.7-2.4 L Lab Interpretation (test code = Abnormal 18661-3) [facility]wood[facility]INAL[facility]IS2020-05-06 00:15:00 Test Item Value Reference Range Interpretation Comments APPEARANCE (test code = Clear Clear 3202065675) COLOR (test code = Yellow Yellow 2304639024) PH (test code = 4.8-8.0 1256776300) SP GRAVITY (test code = 1.003-1.030 0145863508) GLU U QUAL (test code = Normal Normal 5100637679) BLOOD (test code = Negative Negative 0118399720) KETONES (test code = Negative Negative 1357812026) PROTEIN (test code = Negative Negative 2887-8) UROBILIN (test code = Normal Normal 7684569592) BILIRUBIN (test code = Negative Negative 8443645182) NITRITE (test code = Negative Negative 1879646420) LEUK MARY (test code = Negative Negative 9309556159) RBC/HPF (test code = <1 See_Comment [Autom ated message] 6415269925) The system whic h generated this result transmitted ref erence range: 0 - 3 HP F. The reference range was not used to int erpret this result as normal/abnormal . WBC/HPF (test code = See_Comment [Autom ated message] 7743022206) The system [employer] generated this result transmitted ref erence range: 0 - 5 HP F. The reference range was not used to int erpret this result as normal/abnormal . BACTERIA (test code = Few Negative A 2662287944) MUCOUS (test code = Slight Negative LPF A 9662359105) SQ EPITH (test code = HPF 4725611478) Lab Interpretation (test Abnormal code = 84889-0) [facility] - DRUG SCREEN [id number] 23:49:00 Test Item Value Reference Range Interpretation Comments BENZO U (test code = Presumptive Positive Negative A 9917902604) ARNOLD U (test code = Negative Negative 6737205691) AMPHET (test code = Negative Negative 4628678204) THC (test code = Negative Negative 8762471230) METHADONE (test code = Negative Negative 8126179333) Meth U (test code = Negative Negative 1928066540) OPIATES (test code = Negative Negative 2293689268) Cocaine Metabolite (test Negative Negative code = 7658481064) PROPOXY (test code = Negative Negative 2106787086) Tric U (test code = Negative Negative 0049517952) PCP (test code = Negative Negative 9513541545) OXYCOD (test code = Negative Negative 9245994849) YAMIL (test code = YAMIL) Urine Drug [...] testing). Lab Interpretation (test Abnormal code = 73742-8) [facility] WITH [id number] 23:34:00 Test Item Value Reference Range Interpretation Comments WBC (test code = See_Comment H [Automated 0990-2) message] The sy stem which generated this [...] RDW-SD (test code = 42.4 fL 39-49.9 67651-0) RDW-CV (test code = 13.0 % 12-15.5 788-0) PLT (test code = See_Comment [Automated 777-3) message] The sy stem which generated this result transmitted reference range : 166 - 358 10*3/ ?L. The reference r miguelina was not used to interpret this result as normal/abnormal . MPV (test code = 9.7 fL 9.5-12.9 14630-5) NRBC/100 WBC (test See_Comment [Automat ed code = 0342639599) message] The system which generated this result transmitted reference range : 0.0 - 10.0 /100 WBCs. The refer ence range was not u sed to interpret th is result as normal/abnormal . NRBC x10^3 (test code <0.01 See_Comment [Auto mated = 7017492692) message] The s ystem which generated this result transmitted reference range : 10*3/?L. The reference range was not used to interpret this result as normal/abnormal . GRAN MAT (NEUT) % 72.0 % (test code = 770-8) IMM GRAN % (test code 0.40 % = 1546493658) LYMPH % (test code = 21.6 % 736-9) MONO % (test code = 3.9 % 5905-5) EOS % (test code = 1.8 % 713-8) BASO % (test code = 0.3 % 706-2) GRAN MAT x10^3(ANC) 8.22 10*3/uL 1.88-7.09 H (test code = 0009707674) IMM GRAN x10^3 (test 0.05 10*3/uL 0-0.06 code = 8108425879) LYMPH x10^3 (test code 2.47 10*3/uL 1.32-3.29 = 731-0) MONO x10^3 (test code 0.45 10*3/uL 0.33-0.92 = 742-7) EOS x10^3 (test code = 0.20 10*3/uL 0.03-0.39 711-2) BASO x10^3 (test code 0.03 10*3/uL 0.01-0.07 = 704-7) Lab Interpretation Abnormal (test code = 72988-5) [facility]woodRPR, [id number] 14:45:00 Test Item Value Reference Range Interpretation Comments RPR (test code = RPR) Non-Reactive Non-Reactive N Thyroid Stimulating Hormone (TSH)2017-12-30 07:29:00 Test Item Value Reference Range Interpretation Comments TSH (test code = TSH) 2.42 mIU/mL 0.270-4.200 N BHCG, Serum, Iwiovyctewqk4751-03-33 07:29:00 Test Item Value Reference Range Interpretation Comments B hCG, Quant (test <1 mIU/mL Weeks of Gestation code = BHCGQT) Ranges (mIU/m L)3 weeks 5.40 - 72.04 we eks 10.2 - 7085 weeks 21 7 - 69951 weeks 152 - 321 777 weeks 4059 - 5643673 weeks 21311 - 4162009 weeks 91739 - 3682102 0 weeks 89095 - 8318532 2 weeks 69631 - 8638728 4 weeks 47909 - 8769033 weeks 10320 - 9240925 weeks 4904 - 2396845 weeks 0940 - 5795271 weeks 4967 - 01146 Lipid Joilhmb1522-84-00 07:19:00 Test Item Value Reference Range Interpretation Comments Cholesterol (test 132 mg/dL 0-200 N code = CHOL) Triglycerides (test 122 mg/dL 9-200 N code = TRIG) HDL (test code = 21 mg/dL 50-60 L HDL) Chol/HDL (test code 6.3 Ratio 0.0-4.4 H = CHOLPHDL) LDL, Calculated 87 0-130 N (NOTE)RISK O F HEART (test code = LDLC) DISEASEPu blished by [place] Heart AssociationAnal yte Optimal Boderli ne Increased RiskC HOL <200 200-239 >240TRI G <150 150-199 >200HDL Male: >60 <40HDL Fema le: >60 <50LDL <100 130 -159 >160LDL NEAR OP TIMAL IS 100-129 VLDL (test code = 24 mg/dL 5-40 N VLDL) LDL/HDL (test code = 4 LDLPHDL) [id number] 04:24:00 Test Item Value Reference Range Interpretation [...] code = THC) POSITIVE Negative A Urinalysis Vsnpnjek4316-25-60 03:47:00 Test Item Value Reference Range Interpretation Comments Color (test code = [place] Yellow,Straw,Pl A The va lue [place] COLOR) yellow originally released by [employer] on 12/30/2017 03:4 2 waschanged to P ink by [employer] on 12/30/2017 03:4 7 Clarity (test code = Sl Cloudy Clear A The tomi ue Clear CLAR) originally released by [employer] on 12/30/2017 03:4 2 waschanged to S l Cloudy by BRIANA PARHAM on 12/30/2017 03:47 Specific [place] 1.006 1.001-1.035 N (test code = SPGR) [...] code Few /HPF = BACT) Comprehensive Metabolic Unwkc8773-88-12 01:00:00 Test Item Value Reference Range Interpretation [...] the National Kidney Foundation,http ://nkd ep.nih.gov Alcohol/Ethanol, Fxmkn6409-70-37 01:00:00 Test Item Value Reference Range Interpretation Comments Alcohol, Ethyl <0.01 g/dL 0.00-0.01 N Intoxicated 0 .080 g/dL (test code = ETOH) or more CBC with Werwlvcdamyv6861-26-01 00:45:00 Test Item Value Reference Range Interpretation [...] code = ALYMPH) 3.8 K/cumm 0.5-4.6 N [place] Abs (test code = AMONO) 0.5 K/cumm 0.0-1.2 N Eos Abs (test code = AEOS) 1.24 K/cumm 0.00-0.74 H Baso Abs (test code = ABASO) 0.1 K/cumm 0.00-0.21 N
[2023-08-06 07:40] LABS: Absolute Lymphocytes (CBC) 2.7 K/uL (0.7-4.9); Hematocrit 38.4 % (36.0-45.0); Lymphocytes % 21.1 % (15.3-44.8); MCV 89.5 fL (80-100); MPV 7.4 fL (7.6-11.3); Platelets 356 thou/uL (152-406); RBC Red Blood Cell Count 4.29 M/uL (3.86-4.86)
[2023-08-06] MEDS ORDERED: KETOROLAC 30 MG/ML INJ ONE (07:52)
[2023-08-06 08:00] LABS: ALT/SGPT 24 U/L (13-56); AST/SGOT 23 U/L (15-37); Albumin 3.3 g/dL (3.4-5.0); Alkaline Phosphatase 108 U/L (45-117); BUN Blood Urea Nitrogen 16 mg/dL (7-18); Bicarbonate 28 mEq/L (21-32); Bilirubin Total 0.1 mg/dL (0.2-1.0); Glomerular Filtration Rate 91 ml/min (=/>90); Glucose Level 102 mg/dL (74-106); Protein, Total 7.3 g/dL (6.4-8.2); Sodium Level 138 mEq/L (136-145); Troponin High Sensitivity 4.6 pg/mL (<58.9)
[2023-08-06 08:04] LABS: Bilirubin Direct < 0.1 mg/dL (0-0.2); Bilirubin Indirect, Calculated ND mg/dL (0.2-0.8)
--- NOTE | 2023-08-06 08:10 | RAD REPORT ---
EXAM DESCRIPTION: RADChest Single View08/06/2023 7:59 am CLINICAL HISTORY: CHEST PAIN COMPARISON: Chest Pa And Lat (2 Views) dated 07/30/2023; Chest Single View dated 07/22/2023; CHEST SIN GLE VIEW dated 02/14/2012; CHEST PA AND LAT 2 VIEW dated 10/20/2011 TECHNIQUE: Portable AP view of the chest. FINDINGS: The lungs show no focal consolidation. Stable central to basal interstitial mild prominenc e. No pneumothorax or effusion. The cardiomediastinal contours are unremarkable. IMPRESSION: No acute findings. Stable mild perihilar and bibasilar interstitial prominence, which ma y relate to resolving interstitial pneumonitis or chronic interstitial lung disease.
--- NOTE | 2023-08-06 08:42 | EDPHYS ---
Physician Documentation [facility] Name: Miriam Fried Age: 43 yrs Sex: Female : 1980 Arrival Date: 08/06/2023 Time: 07:14 Bed 20 Private MD: ED Physician Ajay Segura HPI: 08/06 07:22 This 43 yrs old [place] Female presents to ER via EMS with complaints of Chest Pain. ms3 07:22 43-year-old female with past medical history of ADD/ADHD, atrial fibrillation presents ms3 via [facility] for headache, palpitations. Patient states the palpitations feel similar to when she had atrial fibrillation in the past. EMS notes they administered 324 mg aspirin prior to arrival. Patient's blood glucose level 102, blood pressure 150/80. Patient denies nausea, vomiting, shortness of breath. Historical: - Allergies: 07:18 Bactrim DS; iw 07:18 Morphine; iw - Home Meds: 07:18 aripiprazole oral [Active]; iw - PMHx: 07:18 ADD/ADHD; iw - Immunization history:: Adult Immunizations unknown. - Social history:: Smoking status: unknown. ROS: 07:22 Constitutional: Negative for fever, and chills. Eyes: Negative for injury, pain, ms3 redness, and discharge, Neck: Negative for injury, pain, and swelling, Respiratory: Negative for shortness of breath, cough, wheezing, and pleuritic chest pain, Abdomen/GI: Negative for abdominal pain, nausea, vomiting, diarrhea, and constipation, MS/Extremity: Negative for injury and deformity, 07:22 Cardiovascular: Positive for chest pain, palpitations, 07:22 All other systems are negative, Exam: 07:22 Constitutional: This is a well developed, well nourished patient who is awake, alert, ms3 and in no acute distress. Head/Face: Normocephalic, atraumatic. Neck: Trachea midline, no cervical lymphadenopathy. Supple, full range of motion without nuchal rigidity, or vertebral point tenderness. No Meningismus. Chest/axilla: Normal chest wall appearance and motion. Nontender with no deformity. Cardiovascular: Regular rate and rhythm with a normal S1 and S2. No gallops, murmurs, or rubs. Normal PMI, no JVD. No pulse deficits. Respiratory: Lungs have equal breath sounds bilaterally, clear to auscultation and percussion. No rales, rhonchi or wheezes noted. No increased work of breathing, no retractions or nasal flaring. Abdomen/GI: Soft, non-tender, with normal bowel sounds. No distension or tympany. No guarding or rebound. No evidence of tenderness throughout. Back: No spinal tenderness. No costovertebral tenderness. Full range of motion. Skin: Warm, dry with normal turgor. Normal color with no rashes, no lesions, and no evidence of cellulitis. MS/ Extremity: Pulses equal, no cyanosis. Neurovascular intact. Full, normal range of motion. 07:58 ECG was reviewed by the Attending Physician. ms3 Vital Signs: 07:47 BP 103 / 58; Pulse 78; Resp 19 S; Temp 98; Pulse Ox 96% on R/A; Weight 81.65 kg; Height iw 5 ft. 2 in. ; Pain 0/10; 08:21 BP 117 / 56; Pulse 97; Resp 19; Pulse Ox 95% on R/A; iw 07:47 Body Mass Index 32.92 (81.65 kg, 157.48 cm) iw 07:47 Pain Scale: Adult iw MDM: 07:21 Patient medically screened. ms3 07:22 Differential diagnosis: abnormal EKG, acute myocardial infarction, Arrhythmia. ms3 08:41 HEART Score: History: Slightly Suspicious (0), ECG: Normal (0), Age: < or = 45 years ms3 (0), Risk Factors: No Risk Factors Known (0), Troponin: < or = 1 x Normal Limit (0), Total Score = 0. The patient was not given aspirin in the Emergency Department. Administered by EMS. Data reviewed: vital signs, nurses notes, lab test result(s), EKG, radiologic studies, and as a result, I will discharge patient. Consideration of Admission/Observation Escalation of care including admission/observation considered. HEART score 0; Trop normal. I considered the following discharge prescriptions or medication management in the emergency department Medications were administered in the Emergency Department. See MAR. Independent interpretation of the following test(s) in the Emergency Department EKG: See my EKG interpretation above X-Ray: My interpretation is CXR image reviewed by me does not reveal PNA, PTX, Pulmonary edema. Counseling: I had a detailed discussion with the patient and/or guardian regarding the historical points, exam findings, and any diagnostic results supporting the discharge/admit diagnosis, lab results, radiology results, the need for outpatient follow up, to return to the emergency department if symptoms worsen or persist or if there are any questions or concerns that arise at home. Special discussion: Based on the patient's history, exam, and Dx evaluation, there is no indication for emergent intervention or inpatient Tx. It is understood by the patient/guardian that if the Sx's persist or worsen they need to return immediately for re-evaluation. ED course: Discussed labs, imaging with patient. Patient requesting her home medications, gabapentin 600 mg, Prozac 60 mg, Abilify 15 mg, Xanax. Patient's home medications ordered. Discussed discharge with patient. Patient understands agrees to plan. Questions were answered. Return precautions discussed include worsening symptoms, or any other concerns. On reevaluation patient is alert and orient x4, no apparent distress, nontoxic-appearing, speaking full sentences. 08/06 07:20 Order name: Basic Metabolic Panel; Complete Time: 08:31 ms3 08/06 07:20 Order name: CBC with Diff; Complete Time: 08:31 ms3 08/06 07:20 Order name: LFT's; Complete Time: 08:31 ms3 08/06 07:20 Order name: Troponin HS; Complete Time: 08:31 ms3 08/06 07:20 Order name: XRAY Chest (1 view); Complete Time: 08:31 ms3 08/06 07:20 Order name: EKG; Complete Time: 07:21 ms3 08/06 07:20 Order name: Cardiac monitoring; Complete Time: 07:47 ms3 08/06 07:20 Order name: EKG - Nurse/Tech; Complete Time: 07:31 ms3 08/06 07:20 Order name: IV Saline Lock; Complete Time: 07:31 ms3 08/06 07:20 Order name: Labs collected and sent; Complete Time: 07:31 ms3 08/06 07:20 Order name: O2 Per Protocol; Complete Time: 07:31 ms3 08/06 07:20 Order name: O2 Sat Monitoring; Complete Time: 07:31 ms3 EC:58 Rate is 82 beats/min. Rhythm is regular. QRS [place] is Normal. CA interval is normal. QRS ms3 interval is normal. Clinical impression: NSR w/ Non-specific ST/T Changes. Interpreted by me. Reviewed by me. Administered Medications: 07:48 Drug: Ketorolac IVP 10 mg 10 mg IVP once Route: IVP; Site: right antecubital; iw 09:00 Drug: ALPRAZolam PO Tablet 0.25 mg PO once Route: PO; iw 09:07 Follow up: Response: No adverse reaction iw 09:01 Drug: Gabapentin PO 600 mg PO once Route: PO; iw 09:01 Drug: Abilify 15 mg PO once Route: PO; iw 09:07 Follow up: Response: No adverse reaction iw 09:01 Not Given (Patient Refused): FLUoxetine 60 mg PO once iw Disposition Summary: 08/06/23 08:41 Discharge Ordered Notes: Location: Home ms3 Condition: Stable ms3 Diagnosis - Palpitations ms3 - Headache ms3 Followup: ms3 - With: Cleveland Mackay DO - When: 2 - 3 days - Reason: Recheck today's complaints Discharge Instructions: - Discharge Summary Sheet ms3 - General Headache Without Cause ms3 - Palpitations ms3 Forms: - Medication Reconciliation Form ms3 - Thank You Letter ms3 - Antibiotic Education ms3 - Prescription Opioid Use ms3 - Patient Portal Instructions ms3 - Leadership Thank You Letter ms3 Signatures: Dispatcher [employer] Gracia Arredondo, RN RN Ajay Fontana DO DO ms3
--- NOTE | 2023-08-06 08:42 | ER ---
Nurse's Notes [facility] Name: Miriam Fried Age: 43 yrs Sex: Female : 1980 Arrival Date: 08/06/2023 Time: 07:14 Bed 20 Private MD: Diagnosis: Palpitations;Headache Presentation: 08/06 07:17 Chief complaint: EMS states: headache, dizzy, palpitations , NSR on monitor, BP 150/80. iw Coronavirus screen: At this time, the client does not indicate any symptoms associated with coronavirus-19. Ebola Screen: Patient negative for fever greater than or equal to 101.5 degrees Fahrenheit, and additional compatible Ebola Virus Disease symptoms Patient denies exposure to infectious person. Patient denies travel to an Ebola-affected area in the 21 days before illness onset. No symptoms or risks identified at this time. Onset of symptoms was August 06, 2023. 07:17 Method Of Arrival: EMS: [facility] iw 07:17 Acuity: REGINA 3 iw 07:19 Initial Sepsis Screen: Does the patient meet any 2 criteria? No. Patient's initial iw sepsis screen is negative. Does the patient have a suspected source of infection? No. Patient's initial sepsis screen is negative. Risk Assessment: Do you want to hurt yourself or someone else? Patient reports no desire to harm self or others. Care prior to arrival: Medication(s) given: ASA, 81 mg, x 4, Glucose check: 102. Historical: - Allergies: 07:18 Bactrim DS; iw 07:18 Morphine; iw - Home Meds: 07:18 aripiprazole oral [Active]; iw - PMHx: 07:18 ADD/ADHD; iw - Immunization history:: Adult Immunizations unknown. - Social history:: Smoking status: unknown. Screenin:37 [facility] ED Fall Risk Assessment (Adult) Score/Fall Risk Level 0 - 2 = Low Risk. Abuse iw screen: Denies threats or abuse. Denies injuries from another. Nutritional screening: No deficits noted. Tuberculosis screening: No symptoms or risk factors identified. Assessment: 07:36 General: Appears in no apparent distress. Behavior is cooperative. Pain: Denies pain. iw Neuro: Level of Consciousness is awake, alert, obeys commands, Oriented to person, place, time, situation, Moves all extremities. Full function. Cardiovascular: Patient's skin is warm and dry. Respiratory: Respiratory effort is even, unlabored, Respiratory pattern is regular, symmetrical. Derm: Skin is intact, is healthy with good turgor. Musculoskeletal: Range of motion: intact in all extremities. Vital Signs: 07:47 BP 103 / 58; Pulse 78; Resp 19 S; Temp 98; Pulse Ox 96% on R/A; Weight 81.65 kg; Height iw 5 ft. 2 in. ; Pain 0/10; 08:21 BP 117 / 56; Pulse 97; Resp 19; Pulse Ox 95% on R/A; iw 07:47 Body Mass Index 32.92 (81.65 kg, 157.48 cm) iw 07:47 Pain Scale: Adult iw ED Course: 07:17 Patient arrived in ED. iw 07:18 Triage completed. iw 07:20 Gracia Sanz, RN is Primary Nurse. iw 07:20 Ajay Segura DO is Attending Physician. ms3 07:20 Arm band placed on. iw 07:37 Patient has correct armband on for positive identification. iw 07:37 Initial lab(s) drawn, by me, sent to lab. Maintain EMS IV. Dressing intact. Good blood iw return noted. Site clean \T\ dry. Gauge \T\ site: 20 RAC. 07:47 Provided Education on: EKG. iw 07:47 No provider procedures requiring assistance completed. iw 07:52 Client placed on continuous cardiac and pulse oximetry monitoring. NIBP monitoring iw applied. 08:00 XRAY Chest (1 view) In Process Unspecified. EDMS 08:40 Cleveland Mackay DO is Referral Physician. ms3 Administered Medications: 07:48 Drug: Ketorolac IVP 10 mg 10 mg IVP once Route: IVP; Site: right antecubital; iw 09:00 Drug: ALPRAZolam PO Tablet 0.25 mg PO once Route: PO; iw 09:07 Follow up: Response: No adverse reaction iw 09:01 Drug: Gabapentin PO 600 mg PO once Route: PO; iw 09:01 Drug: Abilify 15 mg PO once Route: PO; iw 09:07 Follow up: Response: No adverse reaction iw 09:01 Not Given (Patient Refused): FLUoxetine 60 mg PO once iw Medication: 07:37 VIS not applicable for this client. iw Outcome: 08:41 Discharge ordered by MD. chambers 09:05 Patient left the ED. iw Signatures: Dispatcher [employer] Gracia Arredondo RN RN iw Ajay Segura DO DO ms3 Corrections: (The following items were deleted from the chart) 07:20 07:17 Chief complaint: EMS states: headache, dizzy, palpitations iw iw 07:48 07:47 Pulse 78bpm; Resp 19bpm; Spontaneous; Pulse Ox 96% RA; Temp 98F; 81.65 kg; Height iw 5 ft. 2 in.; BMI: 32.9; Pain 0/10, Adult; iw
[2023-08-06] MEDS ORDERED: ARIPiprazole 5 MG TAB ONE (09:02)
[2023-08-06] MEDS ORDERED: GABAPENTIN 300 MG CAP ONE (09:02)
[2023-08-06] MEDS ORDERED: ALPRAZOLAM 0.25 MG TABLET ONE (09:02)
[2023-08-06 09:12] VITALS: TEMP 98
[2023-08-06 09:13] VITALS: BP 117/56; O2SAT 95
--- NOTE | 2023-08-06 16:57 | EKG ---
Test Date: 2023-08-06 Test Time: 07:27:21 Manager Generation: DANIELLE MEASUREMENT RESULTS: Intervals: Rate: 82 MO: 140 QRSD: 80 QT: 390 QTc: 455 [place]: P: 75 MO: 140 QRS: 50 T: 41 INTERPRETIVE STATEMENTS: Normal sinus rhythm Low voltage QRS Septal infarct, age undetermined Abnormal ECG Compared to ECG 07/22/2023 14:58:33 Low QRS voltage now present Myocardial infarct finding still present Electronically Signed On 08-06-23 16:55:55 CDT by Kenn Zavaleta
== END 2023-08-06 09:05 | disposition home or self-care (01) ==
LOC: ER 07:14
DX: R00.2 Palpitations (principal); R51.9 Headache, unspecified; R07.9 Chest pain, unspecified
CPT/HCPCS: 36415; 71045; 80048; 80076; 84484; 85025; 93005; 96374; 99284

== ENCOUNTER → 2024-01-08 | Emergency (ER) | payer SELFPAY ==
[~2024-01-08] MED LIST: CIPROFLOXACIN HCL 500 MG TAB ONE; LORazepam 2 MG/ML VIAL ONE; NA CHLORIDE 0.9% 1,000 ML ONE; POTASSIUM 25 MEQ EFFERV TAB ONE
--- OUTSIDE RECORDS SUMMARY | 2024-01-08 12:27 | XMS REPORT | Continuity of Care Document ---
Author Name Unknown Address [address] [facility] [address] [place] [address] [facility] thconnect Address [address] [facility]. [address] [place] [address] Care Team Providers Care Biotechnologist Name Role Phone UNKNOWN, REFFERING Primary Care Physician Sherman Espinosa Attending Clinician Unavailable Rj Diez Attending Clinician Unavailab Rj Hardwick Attending Clinician Unavailab Alisa Haas RN Attending Clinician Unavailabl e [email or web address]_S Attending Clinician Unavaila JYOTI Pavon Attending Clinician Unavailable SEPIDEH PALMER Attending Clinician Unavailab Sepideh Martini DO Attending Clinician [phone] MIGUEL A NATH Attending Clinician Unavailable Miguel A Nath MD Attending Clinician [phone] Doctor Unassigned, [place] Attending Clinician U GAGE Bowden Attending Clinician Unavailable Gage Reid MD Attending Clinician [phone] Ultrasound, Ang-Mfm Attending Clinician UnavailCheikh Beach MD Attending Clinician [phone] Fellow, [facility] Attending Clinician Un available Hussein SMILEY, [place] F Attending Clinician [phone] Olga Lidia Corral MD Attending Clinician [phone] Sanjana Sierra PA-C Attending Clinician [phone] Edson Emanuel Attending Clinician + [phone] Edson CHAMBERS Attending Clinician Unavailable Faculty, [facility] Attending Clinician Lilia Mark MD, Porter Bar Attending Clinician [phone] NORMA ZHANG M.D., Calin VALE Clinician Unavailable GAGE REID Admitting Clinician Unavailable Sherman Collazo Admitting Clinician Unavailable Rj Diez Admitting Clinician Unavailab matthew [email or web address]_S Admitting Clinician Unavailchino Reid MD, Gage Holloway Admitting Clinician [phone] NORMA ZHANG M.D., NORMA Smith Admitting Clin ician Unavailable Payers Payer Name Policy Type Policy Number Effective Date Expirati on Date Source [employer] MEDICAID [id number] 2020 00:00:00 [facility] [id number] MEDICAID OF [place] [id number] 2020 00:00:00 Problems Condition Name Condition Details Condition Category Status Onset Date Resolution Date Last Treatment Date Treating Clinician Comments Source 39 weeks gestation of 39 weeks gestation of Disease Active 2019-11 00:00: 00 [facility] QT prolongati on QT prolongati on Disease Active 2019-11 00:00: 00 [facility] Obesity (BMI 30-39.9) Obesity (BMI 30-39.9) Disease Active 2019-11 00:00: 00 [facility] Insufficie nt care in third trimester Insufficie nt care in third trimester Disease Active 2019-11 00:00: 00 [facility] Severe episode of recurrent major depressive disorder, 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, without psychotic features Disease Active 5-14 00:00: 00 [facility] Supervisio n of high risk in third trimester Supervisio n of high risk in third trimester Disease Active 03-15 00:00: 00 [facility] History of cardiac arrest History of cardiac arrest Disease Active 03-15 00:00: 00 [facility] Anxiety disorder, unspecifie d type Anxiety disorder, unspecifie d type Disease Active 03-15 00:00: 00 [facility] History of drug abuse History of drug abuse Disease Active 03-15 00:00: 00 [facility] History of herpes genitalis History of herpes genitalis Disease Active 03-15 00:00: 00 [facility] Previous section Previous section Disease Active 03-15 00:00: 00 [facility] Medication exposure during first trimester of Medication exposure during first trimester of Disease Active 03-15 00:00: 00 [facility] Smoking Smoking Disease Active 03-15 00:00: 00 [facility] Abdominal pain, epigastric Abdominal pain, epigastric Disease Active 02-26 00:00: 00 [facility] Allergies, Adverse Reactions, Alerts Allergy Name Allergy Type Status Severity Reaction(s) Onset Date Inactive Date Treating Clinician Comments Source morphine DA Active SV 12-22 00:00: 00 [facility] morphine DA Active SV "HEART STOPPED" 12-22 00:00: 00 [facility] MORPHINE DRUG INGREDI Active Unknown-Cmnt 2010-11 00:00: 00 [facility] Morphine Propensi ty to adverse reaction s Active Unknown - See comments 2010-11 00:00: 00 Per patient she went into cardiac arrest after receiving morphine at the hospital March 2011 [facility] morphine Drug Active [facility] morphine Drug Active [facility] morphine Drug Active [facility] morphine [facility] Active [facility] morphine Drug Active [facility] morphine Drug Active [facility] morphine Drug Active [facility] morphine Drug Active [facility] morphine Drug Active [facility] morphine Drug Active [facility] morphine Drug Active [facility] morphine Drug Active [facility] morphine Drug Active [facility] Social History Social Habit Start Date Stop Date Quantity Comments Source ASSERTION 2019-12-22 00:00:[address] [facility] [place] [place] [facility] of tobacco use Cigarette Smoker [facility] [place] [place] History of Social function 2023-05-01 00:00:00 2023-05-01 00:00:[address] [facility] [place] [place] Alcohol intake 2023-05-01 00:00:00 2023-05-01 00:00:00 Current drinker of alcohol (finding) [facility] [place] [place] Exposure to SARS-CoV-2 (event) 2023-01-03 00:00:00 2023-01-13 21:35:[address] [facility] [place] [place] Tobacco use and exposure 2020-03-15 00:00:00 2020-03-15 00:00:00 Smokeless tobacco non-user [facility] [place] [place] Cigarettes smoked current (pack per day) - Reported 2020-03-15 00:00:00 2020-03-15 00:00:[address] [facility] [place] [place] Sex Assigned At 1980 00:00:00 1980 00:00:[address] [facility] [place] [place] Smoking Status Start Date Stop Date Source Smokes tobacco daily 2020-03-15 00:00:[address] [facility] [place] [place] Medications Ordered Medication Name Filled Medication Name Start Date Stop Date Current Medication? Ordering Clinician Indication Dosage Frequency Signature (SIG) Comments Components Source NaCl 0.9% (NS) bolus infusion 1,000 mL 05-01 19:00: 00 05-01 19:10 :00 No 1000mL at 999 mL/hr, 1,000 mL, IV Infusion, ONCE, 1 dose, On Thu05/01/23 at 1400, [facility] ondansetron (ZOFRAN (PF)) injection 4 mg 05-01 19:00: 00 05-01 18:53 :00 No 4mg 4 mg, Slow IV Push, ONCE, 1 dose, On 6/30/23 at 1400, [facility] cefTRIAXone (ROCEPHIN) 1,000 mg in NaCl 0.9% (NS) 100 mL MINI-BAG 05-01 18:15: 00 05-01 18:43 :00 No 1000mg 1,000 mg, IV Piggyback, ONCE, 1 dose, On Thu05/01/23 at 1315, Administer over 30 Minutes, 100 mL
Reas on for Anti-Infec tive: Documented Infection< br>Documen bhavya Infection Site: Urine
D uration of Therapy: 7 days [facility] NaCl 0.9% (NS) bolus infusion 1,000 mL 05-01 17:30: 00 05-01 18:14 :00 No 1000mL at 999 mL/hr, 1,000 mL, IV Infusion, ONCE, 1 dose, On Thu05/01/23 at 1230, [facility] ondansetron 4 mg disintegrat ing tablet 05-01 00:00: 00 Yes [id number] 4mg Take 1 tablet by mouth every 8 (eight) hours as needed for Nausea and Vomiting (N/V). [facility] ondansetron 4 mg disintegrat ing tablet 05-01 00:00: 00 Yes [id number] 4mg Take 1 tablet by mouth every 8 (eight) hours as needed for Nausea and Vomiting (N/V). [facility] sulfamethox azole-trime thoprim 800-160 mg per tablet 05-01 00:00: 00 05-07 04:59 :00 No [id number] 1{tbl} Take 1 tablet by mouth every 12 (twelve) hours for 5 days. [facility] risperiDONE 2 mg tablet 2019-11 01:27: 56 Yes 2mg Take 2 mg by mouth daily. [facility] SERTraline (ZOLOFT) 50 mg tablet 2019-11 01:27: 56 Yes 50mg Take 50 mg by mouth daily. [facility] D5W-LR IV infusion 1,000 mL 2019-11 00:45: 00 Yes 1000mL at 125 mL/hr, IV Infusion, CONTINUOUS , Starting Thu09/12/20 at 1845, Until Discontinu ed, Routine [facility] risperiDONE 2 mg tablet 2019-11 19:27: 56 Yes 2mg Take 2 mg by mouth daily. [facility] SERTraline (ZOLOFT) 50 mg tablet 2019-11 19:27: 56 Yes 50mg Take 50 mg by mouth daily. [facility] risperiDONE 2 mg tablet 2019-11 19:27: 56 Yes 2mg Take 2 mg by mouth daily. [facility] SERTraline (ZOLOFT) 50 mg tablet 2019-11 19:27: 56 Yes 50mg Take 50 mg by mouth daily. [facility] risperiDONE 2 mg tablet 2019-11 19:27: 56 Yes 2mg Take 2 mg by mouth daily. [facility] SERTraline (ZOLOFT) 50 mg tablet 2019-11 19:27: 56 Yes 50mg Take 50 mg by mouth daily. [facility] risperiDONE 2 mg tablet 2019-11 19:27: 56 Yes 2mg Take 2 mg by mouth daily. [facility] SERTraline (ZOLOFT) 50 mg tablet 2019-11 19:27: 56 Yes 50mg Take 50 mg by mouth daily. [facility] risperiDONE 2 mg tablet 2019-11 01:35: 11 Yes 2mg Take 2 mg by mouth daily. [facility] SERTraline (ZOLOFT) 50 mg tablet 2019-11 01:35: 11 Yes 50mg Take 50 mg by mouth daily. [facility] risperiDONE 2 mg tablet 2019-11 01:35: 11 Yes 2mg Take 2 mg by mouth daily. [facility] SERTraline (ZOLOFT) 50 mg tablet 2019-11 01:35: 11 Yes 50mg Take 50 mg by mouth daily. [facility] risperiDONE 2 mg tablet 2019-11 01:35: 11 Yes 2mg Take 2 mg by mouth daily. [facility] SERTraline (ZOLOFT) 50 mg tablet 2019-11 01:35: 11 Yes 50mg Take 50 mg by mouth daily. [facility] risperiDONE 2 mg tablet 2019-11 01:35: 11 Yes 2mg Take 2 mg by mouth daily. [facility] SERTraline (ZOLOFT) 50 mg tablet 2019-11 01:35: 11 Yes 50mg Take 50 mg by mouth daily. [facility] risperiDONE 2 mg tablet 2019-11 01:35: 11 Yes 2mg Take 2 mg by mouth daily. [facility] SERTraline (ZOLOFT) 50 mg tablet 2019-11 01:35: 11 Yes 50mg Take 50 mg by mouth daily. [facility] risperiDONE 2 mg tablet 2019-11 01:35: 11 Yes 2mg Take 2 mg by mouth daily. [facility] SERTraline (ZOLOFT) 50 mg tablet 2019-11 01:35: 11 Yes 50mg Take 50 mg by mouth daily. [facility] risperiDONE 2 mg tablet 2019-11 01:35: 11 Yes 2mg Take 2 mg by mouth daily. [facility] SERTraline (ZOLOFT) 50 mg tablet 2019-11 01:35: 11 Yes 50mg Take 50 mg by mouth daily. [facility] risperiDONE 2 mg tablet 2019-11 01:35: 11 Yes 2mg Take 2 mg by mouth daily. [facility] SERTraline (ZOLOFT) 50 mg tablet 2019-11 01:35: 11 Yes 50mg Take 50 mg by mouth daily. [facility] risperiDONE 2 mg tablet 2019-11 01:35: 11 Yes 2mg Take 2 mg by mouth daily. [facility] SERTraline (ZOLOFT) 50 mg tablet 2019-11 01:35: 11 Yes 50mg Take 50 mg by mouth daily. [facility] D5W-LR IV infusion 1,000 mL 2019-11 00:45: 00 Yes 1000mL at 125 mL/hr, IV Infusion, CONTINUOUS , Starting 11/9/20 at 1845, Until Discontinu ed, Routine [facility] PN 102-iron-fo late 1-dss-dha (VITAFOL FE+, WITH DOCUSATE,) 90 mg iron-1 mg -50 mg-200 mg Cap 2020-0 5-14 00:00: 00 Yes [id number] Take 1 TAB-CAP/M2 by mouth daily. [facility] 102-iron-fo late 1-dss-dha (VITAFOL FE+, WITH DOCUSATE,) 90 mg iron-1 mg -50 mg-200 mg Cap 2020-0 5-14 00:00: 00 Yes [id number] Take 1 TAB-CAP/M2 by mouth daily. [facility] 102-iron-fo late 1-dss-dha (VITAFOL FE+, WITH DOCUSATE,) 90 mg iron-1 mg -50 mg-200 mg Cap 2020-0 5-14 00:00: 00 Yes [id number] Take 1 TAB-CAP/M2 by mouth daily. [facility] 102-iron-fo late 1-dss-dha (VITAFOL FE+, WITH DOCUSATE,) 90 mg iron-1 mg -50 mg-200 mg Cap 2020-0 5-14 00:00: 00 Yes [id number] Take 1 TAB-CAP/M2 by mouth daily. [facility] 102-iron-fo late 1-dss-dha (VITAFOL FE+, WITH DOCUSATE,) 90 mg iron-1 mg -50 mg-200 mg Cap 2020-0 5-14 00:00: 00 Yes [id number] Take 1 TAB-CAP/M2 by mouth daily. [facility] 102-iron-fo late 1-dss-dha (VITAFOL FE+, WITH DOCUSATE,) 90 mg iron-1 mg -50 mg-200 mg Cap 2020-0 5-14 00:00: 00 Yes [id number] Take 1 TAB-CAP/M2 by mouth daily. [facility] 102-iron-fo late 1-dss-dha (VITAFOL FE+, WITH DOCUSATE,) 90 mg iron-1 mg -50 mg-200 mg Cap 2020-0 5-14 00:00: 00 Yes [id number] Take 1 TAB-CAP/M2 by mouth daily. [facility] 102-iron-fo late 1-dss-dha (VITAFOL FE+, WITH DOCUSATE,) 90 mg iron-1 mg -50 mg-200 mg Cap 2020-0 5-14 00:00: 00 Yes [id number] Take 1 TAB-CAP/M2 by mouth daily. [facility] 102-iron-fo late 1-dss-dha (VITAFOL FE+, WITH DOCUSATE,) 90 mg iron-1 mg -50 mg-200 mg Cap 2020-0 5-14 00:00: 00 Yes [id number] Take 1 TAB-CAP/M2 by mouth daily. [facility] 102-iron-fo late 1-dss-dha (VITAFOL FE+, WITH DOCUSATE,) 90 mg iron-1 mg -50 mg-200 mg Cap 2020-0 5-14 00:00: 00 Yes [id number] Take 1 TAB-CAP/M2 by mouth daily. [facility] 102-iron-fo late 1-dss-dha (VITAFOL FE+, WITH DOCUSATE,) 90 mg iron-1 mg -50 mg-200 mg Cap 2020-0 5-14 00:00: 00 Yes [id number] Take 1 TAB-CAP/M2 by mouth daily. [facility] 102-iron-fo late 1-dss-dha (VITAFOL FE+, WITH DOCUSATE,) 90 mg iron-1 mg -50 mg-200 mg Cap 2020-0 5-14 00:00: 00 Yes [id number] Take 1 TAB-CAP/M2 by mouth daily. [facility] 102-iron-fo late 1-dss-dha (VITAFOL FE+, WITH DOCUSATE,) 90 mg iron-1 mg -50 mg-200 mg Cap 2020-0 5-14 00:00: 00 Yes [id number] Take 1 TAB-CAP/M2 by mouth daily. [facility] 102-iron-fo late 1-dss-dha (VITAFOL FE+, WITH DOCUSATE,) 90 mg iron-1 mg -50 mg-200 mg Cap 2020-0 5-14 00:00: 00 Yes [id number] Take 1 TAB-CAP/M2 by mouth daily. [facility] PNV 102-iron-fo late 1-dss-dha (VITAFOL FE+, WITH DOCUSATE,) 90 mg iron-1 mg -50 mg-200 mg Cap 2020-0 5-14 00:00: 00 Yes [id number] Take 1 TAB-CAP/M2 by mouth daily. [facility] PN 102-iron-fo late 1-dss-dha (VITAFOL FE+, WITH DOCUSATE,) 90 mg iron-1 mg -50 mg-200 mg Cap 2020-0 5-14 00:00: 00 Yes [id number] Take 1 TAB-CAP/M2 by mouth daily. [facility] PN 102-iron-fo late 1-dss-dha (VITAFOL FE+, WITH DOCUSATE,) 90 mg iron-1 mg -50 mg-200 mg Cap 2020-0 5-14 00:00: 00 Yes [id number] Take 1 TAB-CAP/M2 by mouth daily. [facility] PN 102-iron-fo late 1-dss-dha (VITAFOL FE+, WITH DOCUSATE,) 90 mg iron-1 mg -50 mg-200 mg Cap 2020-0 5-14 00:00: 00 Yes [id number] Take 1 TAB-CAP/M2 by mouth daily. [facility] PN 102-iron-fo late 1-dss-dha (VITAFOL FE+, WITH DOCUSATE,) 90 mg iron-1 mg -50 mg-200 mg Cap 2020-0 5-14 00:00: 00 Yes [id number] Take 1 TAB-CAP/M2 by mouth daily. [facility] PN 102-iron-fo late 1-dss-dha (VITAFOL FE+, WITH DOCUSATE,) 90 mg iron-1 mg -50 mg-200 mg Cap 2020-0 5-14 00:00: 00 Yes [id number] Take 1 TAB-CAP/M2 by mouth daily. [facility] PN 102-iron-fo late 1-dss-dha (VITAFOL FE+, WITH DOCUSATE,) 90 mg iron-1 mg -50 mg-200 mg Cap 2020-0 5-14 00:00: 00 Yes [id number] Take 1 TAB-CAP/M2 by mouth daily. [facility] PN 102-iron-fo late 1-dss-dha (VITAFOL FE+, WITH DOCUSATE,) 90 mg iron-1 mg -50 mg-200 mg Cap 14 00:00: 00 Yes [id number] Take 1 TAB-CAP/M2 by mouth daily. [facility] PN 102-iron-fo late 1-dss-dha (VITAFOL FE+, WITH DOCUSATE,) 90 mg iron-1 mg -50 mg-200 mg Cap 14 00:00: 00 Yes [id number] Take 1 TAB-CAP/M2 by mouth daily. [facility] 102-iron-fo late 1-dss-dha (VITAFOL FE+, WITH DOCUSATE,) 90 mg iron-1 mg -50 mg-200 mg Cap 03-15 00:00: 00 Yes [id number] Take 1 TAB-CAP/M2 by mouth daily. [facility] LORazepam (ATIVAN) tablet 2 mg 06-23 02:00: 00 06-23 00:55 :00 No 2mg 2 mg, Oral, ONCE, 1 dose, Thu06/22/19 at 2100, [facility] gabapentin 300 mg capsule 06-22 00:00: 00 07-23 04:59 :00 No [id number] 300mg Take 1 capsule by mouth 2 (two) times daily for 30 days. [facility] KCL (K-DUR) 20 mEq tablet 2010-11 00:00: 00 Yes 40meq Take 2 Tabs by mouth daily. [facility] metoprolol tartrate (LOPRESSOR) 25 mg tablet 2010-11 00:00: 00 Yes 12.5mg Take 0.5 Tabs by mouth 2 (two) times daily. [facility] KCL (K-DUR) 20 mEq tablet 2010-11 00:00: 00 Yes 40meq Take 2 Tabs by mouth daily. [facility] metoprolol tartrate (LOPRESSOR) 25 mg tablet 2010-11 00:00: 00 Yes 12.5mg Take 0.5 Tabs by mouth 2 (two) times daily. [facility] KCL (K-DUR) 20 mEq tablet 2010-11 00:00: 00 Yes 40meq Take 2 Tabs by mouth daily. [facility] metoprolol tartrate (LOPRESSOR) 25 mg tablet 2010-11 00:00: 00 Yes 12.5mg Take 0.5 Tabs by mouth 2 (two) times daily. [facility] KCL (K-DUR) 20 mEq tablet 2010-11 00:00: 00 Yes 40meq Take 2 Tabs by mouth daily. [facility] metoprolol tartrate (LOPRESSOR) 25 mg tablet 2010-11 00:00: 00 Yes 12.5mg Take 0.5 Tabs by mouth 2 (two) times daily. [facility] KCL (K-DUR) 20 mEq tablet 2010-11 00:00: 00 Yes 40meq Take 2 Tabs by mouth daily. [facility] metoprolol tartrate (LOPRESSOR) 25 mg tablet 2010-11 00:00: 00 Yes 12.5mg Take 0.5 Tabs by mouth 2 (two) times daily. [facility] KCL (K-DUR) 20 mEq tablet 2010-11 00:00: 00 Yes 40meq Take 2 Tabs by mouth daily. [facility] metoprolol tartrate (LOPRESSOR) 25 mg tablet 2010-11 00:00: 00 Yes 12.5mg Take 0.5 Tabs by mouth 2 (two) times daily. [facility] KCL (K-DUR) 20 mEq tablet 2010-11 00:00: 00 Yes 40meq Take 2 Tabs by mouth daily. [facility] metoprolol tartrate (LOPRESSOR) 25 mg tablet 2010-11 00:00: 00 Yes 12.5mg Take 0.5 Tabs by mouth 2 (two) times daily. [facility] KCL (K-DUR) 20 mEq tablet 2010-11 00:00: 03-15 00:00 :00 No 40meq Take 2 Tabs by mouth daily. [facility] metoprolol tartrate (LOPRESSOR) 25 mg tablet 2010-11 0 00:00: 00 03-15 00:00 :00 No 12.5mg Take 0.5 Tabs by mouth 2 (two) times daily. [facility] magnesium oxide (MAG-OX 400) 400 mg tablet 2010-11 00:00: 00 Yes 800mg Take 2 Tabs by mouth 3 (three) times daily. [facility] magnesium oxide (MAG-OX 400) 400 mg tablet 2010-11 00:00: 00 Yes 800mg Take 2 Tabs by mouth 3 (three) times daily. [facility] magnesium oxide (MAG-OX 400) 400 mg tablet 2010-11 00:00: 00 Yes 800mg Take 2 Tabs by mouth 3 (three) times daily. [facility] magnesium oxide (MAG-OX 400) 400 mg tablet 2010-11 00:00: 00 Yes 800mg Take 2 Tabs by mouth 3 (three) times daily. [facility] magnesium oxide (MAG-OX 400) 400 mg tablet 2010-11 00:00: 00 Yes 800mg Take 2 Tabs by mouth 3 (three) times daily. [facility] magnesium oxide (MAG-OX 400) 400 mg tablet 2010-11 00:00: 00 Yes 800mg Take 2 Tabs by mouth 3 (three) times daily. [facility] magnesium oxide (MAG-OX 400) 400 mg tablet 2010-11 00:00: 00 Yes 800mg Take 2 Tabs by mouth 3 (three) times daily. [facility] magnesium oxide (MAG-OX 400) 400 mg tablet 2010-11 00:00: 00 03-15 00:00 :00 No 800mg Take 2 Tabs by mouth 3 (three) times daily. [facility] FLUoxetine (PROZAC) 20 mg capsule 06-06 00:00: 00 Yes 20mg Take 1 Cap by mouth daily. [facility] clonazePAM (KLONOPIN) 0.5 mg tablet 06-06 00:00: 00 Yes .5mg Take 1 Tab by mouth 3 (three) times daily. [facility] FLUoxetine (PROZAC) 20 mg capsule 06-06 00:00: 00 Yes 20mg Take 1 Cap by mouth daily. [facility] clonazePAM (KLONOPIN) 0.5 mg tablet 06-06 00:00: 00 Yes .5mg Take 1 Tab by mouth 3 (three) times daily. [facility] FLUoxetine (PROZAC) 20 mg capsule 06-06 00:00: 00 Yes 20mg Take 1 Cap by mouth daily. [facility] clonazePAM (KLONOPIN) 0.5 mg tablet 06-06 00:00: 00 Yes .5mg Take 1 Tab by mouth 3 (three) times daily. [facility] FLUoxetine (PROZAC) 20 mg capsule 06-06 00:00: 00 Yes 20mg Take 1 Cap by mouth daily. [facility] FLUoxetine (PROZAC) 20 mg capsule 06-06 00:00: 00 Yes 20mg Take 1 Cap by mouth daily. [facility] FLUoxetine (PROZAC) 20 mg capsule 06-06 00:00: 00 Yes 20mg Take 1 Cap by mouth daily. [facility] FLUoxetine (PROZAC) 20 mg capsule 06-06 00:00: 00 Yes 20mg Take 1 Cap by mouth daily. [facility] FLUoxetine (PROZAC) 20 mg capsule 06-06 00:00: 00 Yes 20mg Take 1 Cap by mouth daily. [facility] FLUoxetine (PROZAC) 20 mg capsule 06-06 00:00: 00 Yes 20mg Take 1 Cap by mouth daily. [facility] FLUoxetine (PROZAC) 20 mg capsule 06-06 00:00: 00 Yes 20mg Take 1 Cap by mouth daily. [facility] clonazePAM (KLONOPIN) 0.5 mg tablet 06-06 00:00: 00 Yes .5mg Take 1 Tab by mouth 3 (three) times daily. [facility] FLUoxetine (PROZAC) 20 mg capsule 06-06 00:00: 00 Yes 20mg Take 1 Cap by mouth daily. [facility] clonazePAM (KLONOPIN) 0.5 mg tablet 06-06 00:00: 00 Yes .5mg Take 1 Tab by mouth 3 (three) times daily. [facility] FLUoxetine (PROZAC) 20 mg capsule 06-06 00:00: 00 Yes 20mg Take 1 Cap by mouth daily. [facility] clonazePAM (KLONOPIN) 0.5 mg tablet 06-06 00:00: 00 Yes .5mg Take 1 Tab by mouth 3 (three) times daily. [facility] FLUoxetine (PROZAC) 20 mg capsule 06-06 00:00: 00 Yes 20mg Take 1 Cap by mouth daily. [facility] clonazePAM (KLONOPIN) 0.5 mg tablet 06-06 00:00: 00 Yes .5mg Take 1 Tab by mouth 3 (three) times daily. [facility] FLUoxetine (PROZAC) 20 mg capsule 06-06 00:00: 00 09-10 00:00 :00 No 20mg Take 1 Cap by mouth daily. [facility] FLUoxetine (PROZAC) 20 mg capsule 06-06 00:00: 09-10 00:00 :00 No 20mg Take 1 Cap by mouth daily. [facility] FLUoxetine (PROZAC) 20 mg capsule 06-06 00:00: 09-10 00:00 :00 No 20mg Take 1 Cap by mouth daily. [facility] FLUoxetine (PROZAC) 20 mg capsule 06-06 00:00: 09-10 00:00 :00 No 20mg Take 1 Cap by mouth daily. [facility] clonazePAM (KLONOPIN) 0.5 mg tablet 06-06 00:00: 00 03-15 00:00 :00 No .5mg Take 1 Tab by mouth 3 (three) times daily. [facility] calcium carbonate (OSCAL-500) 500 mg (1,250 mg) tablet 03-14 00:00: 00 Yes 500mg Take 1 Tab by mouth 3 (three) times daily with meals. [facility] ferrous sulfate 325 mg (65 mg Iron) tablet 03-14 00:00: 00 Yes 325mg Take 1 Tab by mouth 3 (three) times daily with meals. [facility] calcium carbonate (OSCAL-500) 500 mg (1,250 mg) tablet 03-14 00:00: 00 Yes 500mg Take 1 Tab by mouth 3 (three) times daily with meals. [facility] ferrous sulfate 325 mg (65 mg Iron) tablet 03-14 00:00: 00 Yes 325mg Take 1 Tab by mouth 3 (three) times daily with meals. [facility] nicotine (NICODERM) 21 mg/24 hr patch 03-14 00:00: 00 Yes 1{patch } Apply 1 Patch to area(s) every 24 (twenty-fo ur) hours. [facility] thiamine (VITAMIN B1) 100 mg tablet 03-14 00:00: 00 Yes 100mg Take 1 Tab by mouth daily. [facility] vitamin w/FA ( RX OR GENERIC EQUIVALENT) tablet 03-14 00:00: 00 Yes 1{tbl} Take 1 Tab by mouth daily. [facility] nicotine (NICODERM) 21 mg/24 hr patch 03-14 00:00: 00 Yes 1{patch } Apply 1 Patch to area(s) every 24 (twenty-fo ur) hours. [facility] thiamine (VITAMIN B1) 100 mg tablet 03-14 00:00: 00 Yes 100mg Take 1 Tab by mouth daily. [facility] calcium carbonate (OSCAL-500) 500 mg (1,250 mg) tablet 03-14 00:00: 00 Yes 500mg Take 1 Tab by mouth 3 (three) times daily with meals. [facility] ferrous sulfate 325 mg (65 mg Iron) tablet 03-14 00:00: 00 Yes 325mg Take 1 Tab by mouth 3 (three) times daily [facility] meals[facility] [facility]IC[facility]ERM[facility] 21 mg/24 hr patch 03-14 00:00: 00 Yes 1{patch } Apply 1 Patch to area(s) every 24 (twenty-fo ur) hours. [facility] thiamine (VITAMIN B1) 100 mg tablet 03-14 00:00: 00 Yes 100mg Take 1 Tab by mouth daily. [facility] vitamin w/FA ( RX OR GENERIC EQUIVALENT) tablet 03-14 00:00: 00 Yes 1{tbl} Take 1 Tab by mouth daily. [facility] vitamin w/FA ( RX OR GENERIC EQUIVALENT) tablet 03-14 00:00: 00 Yes 1{tbl} Take 1 Tab by mouth daily. [facility] calcium carbonate (OSCAL-500) 500 mg (1,250 mg) tablet 03-14 00:00: 00 Yes 500mg Take 1 Tab by mouth 3 (three) times daily with meals. [facility] ferrous sulfate 325 mg (65 mg Iron) tablet 03-14 00:00: 00 Yes 325mg Take 1 Tab by mouth 3 (three) times daily with meals. [facility] nicotine (NICODERM) 21 mg/24 hr patch 03-14 00:00: 00 Yes 1{patch } Apply 1 Patch to area(s) every 24 (twenty-fo ur) hours. [facility] thiamine (VITAMIN B1) 100 mg tablet 03-14 00:00: 00 Yes 100mg Take 1 Tab by mouth daily. [facility] vitamin w/FA ( RX OR GENERIC EQUIVALENT) tablet 03-14 00:00: 00 Yes 1{tbl} Take 1 Tab by mouth daily. [facility] calcium carbonate (OSCAL-500) 500 mg (1,250 mg) tablet 03-14 00:00: 00 Yes 500mg Take 1 Tab by mouth 3 (three) times daily with meals. [facility] ferrous sulfate 325 mg (65 mg Iron) tablet 03-14 00:00: 00 Yes 325mg Take 1 Tab by mouth 3 (three) times daily with meals. [facility] ([facility]IC[facility]ERM[facility] 21 mg/24 hr patch 03-14 00:00: 00 Yes 1{patch } Apply 1 Patch to area(s) every 24 (twenty-fo ur) hours. [facility] thiamine (VITAMIN B1) 100 mg tablet 03-14 00:00: 00 Yes 100mg Take 1 Tab by mouth daily. [facility] vitamin w/FA ( RX OR GENERIC EQUIVALENT) tablet 03-14 00:00: 00 Yes 1{tbl} Take 1 Tab by mouth daily. [facility] calcium carbonate (OSCAL-500) 500 mg (1,250 mg) tablet 03-14 00:00: 00 Yes 500mg Take 1 Tab by mouth 3 (three) times daily with meals. [facility] ferrous sulfate 325 mg (65 mg Iron) tablet 03-14 00:00: 00 Yes 325mg Take 1 Tab by mouth 3 (three) times daily with meals. [facility] nicotine (NICODERM) 21 mg/24 hr patch 03-14 00:00: 00 Yes 1{patch } Apply 1 Patch to area(s) every 24 (twenty-fo ur) hours. [facility] thiamine (VITAMIN B1) 100 mg tablet 03-14 00:00: 00 Yes 100mg Take 1 Tab by mouth daily. [facility] vitamin w/FA ( RX OR GENERIC EQUIVALENT) tablet 03-14 00:00: 00 Yes 1{tbl} Take 1 Tab by mouth daily. [facility] calcium carbonate (OSCAL-500) 500 mg (1,250 mg) tablet 03-14 00:00: 00 Yes 500mg Take 1 Tab by mouth 3 (three) times daily with meals. [facility] ferrous sulfate 325 mg (65 mg Iron) tablet 03-14 00:00: 00 Yes 325mg Take 1 Tab by mouth 3 (three) times daily with meals. [facility] nicotine (NICODERM) 21 mg/24 hr patch 03-14 00:00: 00 Yes 1{patch } Apply 1 Patch to area(s) every 24 (twenty-fo ur) hours. [facility] thiamine (VITAMIN B1) 100 mg tablet 03-14 00:00: 00 Yes 100mg Take 1 Tab by mouth daily. [facility] vitamin w/FA ( RX OR GENERIC EQUIVALENT) tablet 03-14 00:00: 00 Yes 1{tbl} Take 1 Tab by mouth daily. [facility] calcium carbonate (OSCAL-500) 500 mg (1,250 mg) tablet 03-14 00:00: 00 03-15 00:00 :00 No 500mg Take 1 Tab by mouth 3 (three) times daily with meals. [facility] ferrous sulfate 325 mg (65 mg Iron) tablet 03-14 00:00: 00 03-15 00:00 :00 No 325mg Take 1 Tab by mouth 3 (three) times daily with meals. [facility] nicotine (NICODERM) 21 mg/24 hr patch 03-14 00:00: 00 03-15 00:00 :00 No 1{patch } Apply 1 Patch to area(s) every 24 (twenty-fo ur) hours. [facility] thiamine (VITAMIN B1) 100 mg tablet 03-14 00:00: 00 03-15 00:00 :00 No 100mg Take 1 Tab by mouth daily. [facility] vitamin w/FA ( RX OR GENERIC EQUIVALENT) tablet 03-14 00:00: 00 03-15 00:00 :00 No 1{tbl} Take 1 Tab by mouth daily. [facility] Vital Signs Vital Name Observation Time Observation Value Comments S ource Height/Length Measured 2020-07-25 11:28:48 Systolic blood pressure 2023-05-01 18:15:22 148 mm[Hg] [facility] [place] [place] Diastolic blood pressure 2023-05-01 18:15:22 73 mm[Hg] [facility] [place] [place] Heart rate 2023-05-01 18:15:22 93 /min [facility] [place] [place] Respiratory rate 2023-05-01 18:15:22 16 /min [facility] [place] [place] Oxygen saturation in Arterial blood by Pulse oximetry 2023-05-01 18:15:22 100 /min [facility] [place] [place] Body temperature 2023-05-01 16:33:[address] [facility] [place] [place] Body weight 2023-05-01 16:33:[address] [facility] [place] [place] BMI 2023-05-01 16:33:00 34.33 kg/m2 [facility] [place] [place] Systolic blood pressure 2023-01-14 02:37:00 133 mm[Hg] [facility] [place] [place] Diastolic blood pressure 2023-01-14 02:37:00 65 mm[Hg] [facility] [place] [place] Heart rate 2023-01-14 02:37:00 89 /min [facility] [place] [place] Body temperature 2023-01-14 02:37:[address] [facility] [place] [place] Respiratory rate 2023-01-14 02:37:00 18 /min [facility] [place] [place] Body height 2023-01-14 02:37:[address] [facility] [place] [place] Body weight 2023-01-14 02:37:[address] [facility] [place] [place] BMI 2023-01-14 02:37:00 34.33 kg/m2 [facility] [place] [place] Oxygen saturation in Arterial blood by Pulse oximetry 2023-01-14 02:37:00 96 /min [facility] [place] [place] Systolic blood pressure 2020-09-12 23:45:00 128 mm[Hg] [facility] [place] [place] Diastolic blood pressure 2020-09-12 23:45:00 66 mm[Hg] [facility] [place] [place] Heart rate 2020-09-12 23:45:00 97 /min [facility] [place] [place] Body temperature 2020-09-12 23:45:[address] [facility] [place] [place] Respiratory rate 2020-09-12 21:30:00 18 /min [facility] [place] [place] Oxygen saturation in Arterial blood by Pulse oximetry 2020-09-12 21:30:00 92 /min [facility] [place] [place] Body height 2020-09-12 20:00:[address] [facility] [place] [place] Body weight 2020-09-12 20:00:[address] [facility] [place] [place] BMI 2020-09-12 20:00:00 34.33 kg/m2 [facility] [place] [place] Systolic blood pressure 2020-09-12 23:45:00 128 mm[Hg] [facility] [place] [place] Diastolic blood pressure 2020-09-12 23:45:00 66 mm[Hg] [facility] [place] [place] Heart rate 2020-09-12 23:45:00 97 /min [facility] [place] [place] Body temperature 2020-09-12 23:45:[address] [facility] [place] [place] Respiratory rate 2020-09-12 21:30:00 18 /min [facility] [place] [place] Oxygen saturation in Arterial blood by Pulse oximetry 2020-09-12 21:30:00 92 /min [facility] [place] [place] Body height 2020-09-12 20:00:[address] [facility] [place] [place] Body weight 2020-09-12 20:00:[address] [facility] [place] [place] BMI 2020-09-12 20:00:00 34.33 kg/m2 [facility] [place] [place] Heart rate 2020-09-11 00:51:00 82 /min [facility] [place] [place] Oxygen saturation in Arterial blood by Pulse oximetry 2020-09-11 00:51:00 98 /min [facility] [place] [place] Systolic blood pressure 2020-09-11 00:30:00 91 mm[Hg] [facility] [place] [place] Diastolic blood pressure 2020-09-11 00:30:00 73 mm[Hg] [facility] [place] [place] Body temperature 2020-09-10 23:46:[address] [facility] [place] [place] Respiratory rate 2020-09-10 23:46:00 18 /min [facility] [place] [place] Body height 2020-09-10 23:46:[address] [facility] [place] [place] Body weight 2020-09-10 23:46:[address] [facility] [place] [place] BMI 2020-09-10 23:46:00 34.43 kg/m2 [facility] [place] [place] Systolic blood pressure 2020-09-10 22:35:00 133 mm[Hg] [facility] [place] [place] Diastolic blood pressure 2020-09-10 22:35:00 72 mm[Hg] [facility] [place] [place] Heart rate 2020-09-10 22:27:00 104 /min [facility] [place] [place] Body temperature 2020-09-10 22:27:[address] [facility] [place] [place] Respiratory rate 2020-09-10 22:27:00 18 /min [facility] [place] [place] Body height 2020-09-10 22:27:[address] [facility] [place] [place] Body weight 2020-09-10 22:27:[address] [facility] [place] [place] BMI 2020-09-10 22:27:00 34.43 kg/m2 [facility] [place] [place] Height/Length Measured 2021-11-19 12:39:49 162.56 cm Weight Dosing 2021-11-19 12:39:49 79.83 kg Height/Length Measured 2021-11-19 12:38:21 162.56 cm Weight Dosing 2021-11-19 12:38:21 79.83 kg Height/Length Measured 2021-11-19 12:37:11 162.56 cm Weight Dosing 2021-11-19 12:37:11 79.83 kg Height/Length Measured 2021-11-19 12:35:26 162.56 cm Weight Dosing 2021-11-19 12:35:26 79.83 kg Height/Length Measured 2021-11-19 12:33:07 162.56 cm Weight Dosing 2021-11-19 12:33:07 79.83 kg Height/Length Measured 2021-11-19 12:32:29 162.56 cm Weight Dosing 2021-11-19 12:32:29 79.83 kg Height/Length Measured 2021-11-19 12:32:16 162.56 cm Weight Dosing 2021-11-19 12:32:16 79.83 kg Height/Length Measured 2021-11-19 12:32:03 162.56 cm Weight Dosing 2021-11-19 12:32:03 79.83 kg Height/Length Measured 2021-11-19 12:31:20 162.56 cm Weight Dosing 2021-11-19 12:31:20 79.83 kg Height/Length Measured 2021-11-19 12:31:15 162.56 cm Weight Dosing 2021-11-19 12:31:15 79.83 kg Systolic blood pressure 2020-03-15 13:32:00 129 mm[Hg] [facility] [place] [place] Diastolic blood pressure 2020-03-15 13:32:00 71 mm[Hg] [facility] [place] Heart rate 2020-03-15 13:32:00 85 /min [facility] [place] [place] Body temperature 2020-03-15 13:32:[address] [facility] [place] Respiratory rate 2020-03-15 13:32:00 18 /min [facility] [place] [place] Body height 2020-03-15 13:32:[address] [facility] [place] Body weight 2020-03-15 13:32:[address] [facility] [place] [place] BMI 2020-03-15 13:32:00 29.87 kg/m2 [facility] [place] [place] Systolic blood pressure 2020-03-07 01:00:00 114 mm[Hg] [facility] [place] [place] Diastolic blood pressure 2020-03-07 01:00:00 55 mm[Hg] [facility] [place] Heart rate 2020-03-07 01:00:00 99 /min [facility] [place] [place] Body temperature 2020-03-07 01:00:[address] [facility] [place] Respiratory rate 2020-03-07 01:00:00 20 /min [facility] [place] [place] Oxygen saturation in Arterial blood by Pulse oximetry 2020-03-07 01:00:00 98 /min [facility] [place] [place] Body weight 2020-03-06 23:00:[address] [facility] [place] BMI 2020-03-06 23:00:00 25.75 kg/m2 [facility] [place] Body height 2020-03-06 22:57:[address] [facility] [place] Systolic blood pressure 2019-06-23 02:08:00 146 mm[Hg] [facility] [place] [place] Diastolic blood pressure 2019-06-23 02:08:00 89 mm[Hg] [facility] [place] Heart rate 2019-06-23 02:08:00 130 /min made aware [facility] [place] [place] Body temperature 2019-06-23 02:08:[address] [facility] [place] Respiratory rate 2019-06-23 02:08:00 18 /min [facility] [place] [place] Oxygen saturation in Arterial blood by Pulse oximetry 2019-06-23 02:08:00 95 /min [facility] [place] [place] Body weight 2019-06-23 00:05:[address] [facility] [place] BMI 2019-06-23 00:05:00 25.75 kg/m2 [facility] [place] [place] Systolic blood pressure 2019-06-10 19:43:00 117 mm[Hg] [facility] [place] [place] Diastolic blood pressure 2019-06-10 19:43:00 66 mm[Hg] [facility] [place] Heart rate 2019-06-10 19:43:00 110 /min [facility] [place] [place] Body temperature 2019-06-10 19:43:[address] [facility] [place] Respiratory rate 2019-06-10 19:43:00 18 /min [facility] [place] [place] Body weight 2019-06-10 19:43:[address] [facility] [place] BMI 2019-06-10 19:43:00 24.03 kg/m2 [facility] [place] [place] Oxygen saturation in Arterial blood by Pulse oximetry 2019-06-10 19:43:00 97 /min [facility] [place] [place] Procedures Procedure Date / Time Performed Performing Clinician Source URINALYSIS 2023-05-01 17:17:00 Sepideh Palmer [facility] POCT TEST 2023-05-01 17:17:00 Latasha Palmer ra [facility] [place] CREATINE KINASE 2023-05-01 16:44:[address] [facility] [place] COMP. METABOLIC PANEL (89480) 2023-05-01 16:44:[address] [facility] [place] [place] CBC WITH DIFF 2023-05-01 16:44:00 Sepideh Palmer [facility] AUTHORIZATION FOR RELEASE OF PHI 2022-03-05 05:01:00 Doctor Unassigned, [place] [facility] [place] [id number] 2020-09-13 00:00:00 [facility] ADC / LCC - DRUG SCREEN TRIAGE 2020-09-12 22:07:[address] [facility] [place] [place] MAGNESIUM 2020-09-12 21:06:00 Gage Reid [facility] COMP. METABOLIC PANEL ([id number]) 2020-09-12 21:06:[address] [facility] [place] [place] CBC WITH DIFF 2020-09-12 21:06:00 Gage Reid [facility] ECHO ROUTINE W/DOPPLER COLOR 2020-09-12 20:43:[address] [facility] [place] CONSENT/REFUSAL FOR DIAGNOSIS AND TREATMENT 2020-09-12 19:55:29 Doctor Unassigned, [place] [facility] [place] ASSIGNMENT OF BENEFITS 2020-09-12 19:39:54 Docto r Unassigned, [place] [facility] [place] [place] CBC WITH DIFF 2020-09-11 00:30:00 ReidGage [facility] COVID-19 (ID NOW RAPID TESTING) 2020-09-11 00:15:[address] [facility] [place] CONSENT/REFUSAL FOR DIAGNOSIS AND TREATMENT 2020-09-10 23:34:19 Doctor Unassigned, [place] [facility] [place] [place] ASSIGNMENT OF BENEFITS 2020-09-10 23:33:44 Docto r Unassigned, [place] [facility] [place] [place] GROUP B STREPTOCOCCUS BY PCR 2020-09-10 22:45:[address] [facility] [place] L&D VISIT (NON-DELIVERED) 2020-09-10 06:01:00 Doctor Unassigned, [place] [facility] [place] [place] EXTERNAL PROVIDER RECORDS 2020-04-18 05:01:00 Doctor Unassigned, [place] [facility] [place] [place] ADC / LCC - DRUG SCREEN TRIAGE 2020-03-15 14:26:[address] [facility] [place] ASSIGNMENT OF BENEFITS 2020-03-15 13:18:47 Docto r Unassigned, [place] [facility] [place] [place] POCT URINALYSIS W/O SPECIFIC GRAVITY 2020-03-15 00:00:[address] [facility] [place] POCT TEST 2020-03-07 00:38:[address] [facility] [place] MAGNESIUM 2020-03-06 23:24:00 Edson Chambers [facility] COMP. METABOLIC PANEL ([id number]) 2020-03-06 23:24:[address] [facility] [place] [place] SALICYLATE 2020-03-06 23:24:00 Edson Chambers [facility] ETHANOL 2020-03-06 23:24:00 Edson Chambers [facility] CBC WITH DIFFERENTIAL 2020-03-06 23:24:[address] [facility] [place] [place] URINALYSIS 2020-03-06 23:21:00 Edson Chambers [facility] ADC / LCC - DRUG SCREEN TRIAGE 2020-03-06 23:21:[address] [facility] [place] EKG-12 LEAD 2020-03-06 23:04:57 Edson Chambers [facility] NOTICE OF PRIVACY PRACTICES 2019-06-10 19:40:45 Doctor Unassigned, [place] [facility] [place] CONSENT/REFUSAL FOR DIAGNOSIS AND TREATMENT 2019-06-10 19:34:31 Doctor Unassigned, [place] [facility] [place] Encounters Start Date/Time End Date/Time Encounter Type Admission Type Attending Clinicians Care Facility Care Department Encounter ID Source 2021-08-31 04:56:11 Outpatient P [facility] RACHEL [id number] [facility] 2021-08-31 04:16:00 Outpatient P [facility] [id number] [facility] 2021-08-31 04:15:28 Outpatient P [facility] R[facility] [id number] [facility] 2020-09-13 22:39:00 Inpatient JOSE Sherman Collazo [facility] [id number] [facility] 2020-07-25 10:46:00 Inpatient Rj Diez Thomas [facility] PSY [id number] [facility] 2023-11-14 00:00:00 2023-11-14 00:00:00 Nurse Triage Zana, Alisa [facility] [id number] [id number] [id number] [facility] 2023-08-15 00:00:00 2023-08-15 00:00:00 Outpatient GC_GCBZW_Ka abhijit_S [facility] [id number] [facility] 2023-08-05 15:00:00 2023-08-05 15:00:00 Outpatient JYOTI HOANG [facility] [id number] [facility] 2023-08-05 00:00:00 2023-08-05 00:00:00 Outpatient GC_GCBZW_Ka diyala_S PRIV PRIV [id number] [facility] 2023-08-05 00:00:00 2023-08-05 00:00:00 Outpatient GC_GCBZW_Ka diyala_S PRIV PRIV [id number] [facility] 2023-07-20 00:00:00 2023-07-20 00:00:00 Outpatient GC_GCBZW_Ka diyala_S PRIV PRIV [id number] [facility] 2023-05-01 11:30:00 2023-05-01 14:17:00 Emergency X SEPIDEH PALMER [facility] ERT [id number] [facility] 2023-05-01 11:30:00 2023-05-01 14:17:00 Emergency Sepideh Palmer [facility] 1..840.114 350.1.13.10 4.2.7.2.686 [id number] [facility] 2023-01-13 21:42:00 2023-01-13 22:24:00 Emergency X MIGUEL A NATH [facility] ERT [id number] [facility] 2023-01-13 21:42:00 2023-01-13 22:24:00 Emergency Miguel A Nath [facility] 1..840.114 350.1.13.10 [id number] [id number] [facility] 2022-03-05 00:00:00 2022-03-05 00:00:00 Orders Only Doctor Unassigned, [place] [facility] 1..840.114 350.1.13.10 4.2.7.2.686 [id number] [facility] 2021-09-23 15:00:00 2021-09-23 15:00:00 Outpatient GAGE ISABEL [facility] [id number] [facility] 2021-08-21 09:30:00 2021-08-21 09:30:00 Outpatient R GAGE REID [facility] [id number] [facility] 2020-09-12 13:34:00 2020-09-12 18:35:00 Hospital Encounter Gage Reid [facility] [id number] 350.1.13.10 4.2.7.2.686 [id number] [facility] 2020-09-12 13:34:00 2020-09-12 18:35:00 Hospital Encounter Gage Reid [facility] 1.2.840.114 350.1.13.10 4.2.7.2.686 [id number] 2020-09-12 09:45:00 2020-09-12 09:45:00 Outpatient R GAGE REID [facility] [id number] [facility] 2020-09-11 15:45:00 2020-09-11 15:45:00 Outpatient R GAGE REID [facility] [id number] [facility] 2020-09-11 00:00:00 2020-09-11 00:00:00 Telephone Gage Reid [facility] 1.2840.114 350.1.13.10 4.2.7.2.686 [id number] [facility] 2020-09-11 00:00:00 2020-09-11 00:00:00 Case Management Gage Reid [facility] 1.2.840.114 350.1.13.10 4.2.7.2.686 [id number] [facility] 2020-09-11 00:00:00 2020-09-11 00:00:00 Telephone Gage Reid [facility] 1.2.840.114 350.1.13.10 4.2.7.2.686 [id number] 2020-09-10 17:30:00 2020-09-10 19:10:00 Hospital Encounter Gage Reid [facility] [id number] 350.1.13.10 4.2.7.2.686 [id number] [facility] 2020-09-10 16:09:56 2020-09-10 17:20:04 Routine Visit Gage Reid [facility] [id number] 350.1.13.10 4.2.7.2.686 [id number] [facility] 2020-09-10 16:00:00 2020-09-10 16:00:00 Outpatient R GAEG REID [facility] [id number] [facility] 2020-09-03 13:00:00 2020-09-03 13:00:00 Outpatient R GAGE REID [facility] [id number] [facility] 2020-08-31 08:30:00 2020-08-31 08:30:00 Outpatient R LATASHA [facility] [id number] [facility] 2020-08-21 10:30:00 2020-08-21 10:30:00 Outpatient R LATASHA [facility] [id number] [facility] 2020-08-14 10:30:00 2020-08-14 10:30:00 Outpatient R LATASHA [facility] [id number] [facility] 2020-08-13 11:00:00 2020-08-13 11:00:00 Outpatient R REIDGAGE [facility] [id number] [facility] 2020-07-25 10:07:00 2020-08-02 13:01:00 Inpatient 1 Rj Diez Thomas [facility] PSY [id number] [facility] 2020-07-20 08:30:00 2020-07-20 08:30:00 Outpatient R LATASHA [facility] [id number] [facility] 2020-07-17 13:30:00 2020-07-17 13:30:00 Outpatient R JYOTI PAGAN [facility] [id number] [facility] 2020-07-12 14:30:00 2020-07-12 14:30:00 Outpatient R GAGE REID [facility] [id number] [facility] 2020-06-19 14:30:00 2020-06-19 14:30:00 Outpatient R GAGE REID [facility] [id number] [facility] 2020-04-30 08:45:00 2020-04-30 08:45:00 Outpatient R [facility] [id number] [facility] 2020-04-26 10:31:59 2020-04-26 11:51:31 Toxics Program Officer Visit Ultrasound, Cheikh Dee [facility] CARDIAC NURSE PRACTITIONER [facility] 1..114 350.1.13.10 [id number] [id number] [facility] 2020-04-26 10:15:00 2020-04-26 10:15:00 Outpatient P [facility] [id number] [facility] 2020-04-26 00:00:00 2020-04-26 00:00:00 Letter (Out) Doctor Unassigned, [place] [facility] 1.114 350.1.13.10 4.2.7.2.686 [id number] [facility] 2020-04-20 15:00:00 2020-04-20 15:00:00 Outpatient R [facility] [id number] [facility] 2020-04-20 08:18:30 2020-04-20 08:33:30 Telemedici ne Visit Fellow, Luiz [facility] [place] [facility] .114 350.1.13.10 4.2.7.2.686 [id number] [facility] 2020-04-18 00:00:00 2020-04-18 00:00:00 Orders Only Doctor Unassigned, [place] [facility] 1.284.114 350.1.13.10 4.2.7.2.686 [id number] [id number] [facility] 2020-04-12 08:45:00 2020-04-12 08:45:00 Outpatient R GAGE REID [facility] [id number] [facility] 2020-04-06 08:00:00 2020-04-06 08:30:00 Telemedici ne Visit Fellow[facility] Olga Lidia Corral [facility] 1..114 350.1.13.10 4.2.7.2.686 [id number] [facility] 2020-04-06 08:00:00 2020-04-06 08:00:00 Outpatient R [facility] [id number] [facility] 2020-03-30 00:00:00 2020-03-30 00:00:00 Case Management Sanjana Sierra [facility] 1.284.114 350.1.13.10 4.2.7.2.686 [id number] [facility] 2020-03-20 00:00:00 2020-03-20 00:00:00 Refill Gage Reid [facility] 1.284.114 350.1.13.10 4.2.7.2.686 [id number] [facility] 2020-03-15 08:20:24 2020-03-15 09:19:11 Initial Visit Gage Reid [facility] 1.284.114 350.1.13.10 4.2.7.2.686 [id number] [facility] 2020-03-15 08:00:00 2020-03-15 08:00:00 Outpatient R REID GAGE [facility] [id number] [facility] 2020-03-15 00:00:00 2020-03-15 00:00:00 Orders Only Doctor Unassigned, [place] [facility] 1.2840.114 350.1.13.10 4.2.7.2.686 [id number] [id number] [facility] 2020-03-15 00:00:00 2020-03-15 00:00:00 Telephone Gage Reid [facility] Profess[facility] 1.20.114 350.1.13.10 4.2.7.2.686 [id number] [facility] 2020-03-06 17:55:54 2020-03-06 22:34:00 Emergency Edson Chambers [facility] 1.20.114 350.1.13.10 4.2.7.2.686 [id number] [facility] 2020-03-06 17:55:54 2020-03-06 17:55:54 Emergency X Edson [facility] ERT [id number] [facility] 2020-02-01 00:00:00 2020-02-01 00:00:00 Telephone Faculty, Hood [facility] CARDIAC NURSE PRACTITIONER [facility] 1..114 350.1.13.10 4.2.7.2.686 [id number] [facility] 2019-06-22 19:07:21 2019-06-22 21:13:00 Emergency [facility] 1.20.114 350.1.13.10 4.2.7.2.686 [id number] [facility] 2019-06-10 14:44:46 2019-06-10 15:34:00 Emergency Sepideh Palmer [facility] 1.20.114 350.1.13.10 4.2.7.2.686 [id number] [id number] [facility] 2019-06-10 00:00:00 2019-06-10 00:00:00 Orders Only Doctor Unassigned, [place] [facility] 1.2.840.114 350.1.13.10 4.2.7.2.686 [id number] [facility] Results Test Description Test Time Test Comments Results Result Co mments Source [facility], TXCB W/AUTO [id number] 07:10:00* Test Item Value Reference Range Interpretation Comme [...] pg 27-35 N MEAN CELL HGB CONCETRATION ( test code = MCHC) 31.0 gm/dL 32.2-34.1 L RED CELL DISTRIBUTION WIDTH (test code = RDW) 14.6 % 12.4-16.5 N PLATELET COUNT (test code = PLT) 325 K/mm3 133-385 N MEAN PLATELET VOLUME (test c ode = MPV) 9.8 fl 9.1-12.7 N NEUTROPHIL [...] = BA#) 0.0 K/mm3 RBC MORPHOLOGY REQUIRED (boy t code = RBCM) NORMAL NORMAL PLATELET MORPHOLOGY REQUIRED (test code = PLTMR) NORMAL NORMAL Comments to Cold Roll Operator: TO BE COLLECTED BY LABRUBELLA [id number] 14:15:00* Test Item Value Reference Range Interpretation Comme nts RUBELLA SCREEN (test code = RUBSC) 73.8 IUnit/ml Results >10.0IUn its/ml are considered positive inaccordance with the CLSI guidelines and based on the WHO International Standard for Anti-Rubella serum as anindicator of immune status and a breakpoint to detect mostseropositive persons. Comments to Cold Roll Operator: please use blood alreadyin the labB [id number] 07:26:00* Test Item Value Reference Range Interpretation Comme nts HEMOGLOBIN (test code = HGB) 10.9 g/dL 10.7-13.9 N HEMATOCRIT (test code = HCT) 34.6 % 32.1-42.1 N AB HEPATITIS C [id number] 04:56:00* Test Item Value Reference Range Interpretation Comme nts AB HEPATITIS C (test code = HCVAB) NONREACTIVE NONREACTIVE SIGNAL TO CUTOFF (test code = CUTOFF) 0.10 <0.80 N IS CONSENT FORM SIGNED FOR HIV TESTING? YAB [id number] 04:56:00* Test Item Value Reference Range Interpretation Comme nts AB TREPONEMA (test code = TREPAB) NONREACTIVE NONREACTIVE IS CONSENT FORM SIGNED FOR HIV TESTING? YAB HIV 1 04:56:00* Test Item Value Reference Range Interpretation Comme nts AB HIV 1 2 (test code = GNF25LD) NONREACTIVE NONREACTIVE Done by [employer] TIKI.VNaur 4th Gen HIV Ag/Ab Combo Screen IS CONSENT FORM SIGNED FOR HIV TESTING? YAG HEPATITIS B [id number] 04:56:00* Test Item Value Reference Range Interpretation Comme nts AG HEPATITIS B SURFACE (test code = HBSAG) NONREACTIVE NONREACTIVE IS CONSENT FORM SIGNED FOR HIV TESTING? YAB HEPATITIS C [id number] 04:56:00* Test Item Value Reference Range Interpretation Comme nts AB HEPATITIS C (test code = HCVAB) NONREACTIVE NONREACTIVE SIGNAL TO CUTOFF (test code = CUTOFF) 0.10 <0.80 N IS CONSENT FORM SIGNED FOR HIV TESTING? YAB [id number] 04:56:00* Test Item Value Reference Range Interpretation Comme nts AB TREPONEMA (test code = TREPAB) NONREACTIVE NONREACTIVE IS CONSENT FORM SIGNED FOR HIV TESTING? YAB HIV 1 04:56:00* Test Item Value Reference Range Interpretation Comme nts AB HIV 1 2 (test code = ZXO20KS) NONREACTIVE IS CONSENT FORM SIGNED FOR HIV TESTING? YAG HEPATITIS B [id number] 04:56:00* Test Item Value Reference Range Interpretation Comme nts AG HEPATITIS B SURFACE (test code = HBSAG) NONREACTIVE NONREACTIVE IS CONSENT FORM SIGNED FOR HIV TESTING? YAG HEPATITIS B [id number] 04:41:00* Test Item Value Reference Range Interpretation Comme nts AG HEPATITIS B SURFACE (test code = HBSAG) NONREACTIVE NONREACTIVE IS CONSENT FORM SIGNED FOR HIV TESTING? RICHAB HEPATITIS C [id number] 04:41:00* Test Item Value Reference Range Interpretation Comme nts AB HEPATITIS C (test code = HCVAB) NONREACTIVE SIGNAL TO CUTOFF (test code = CUTOFF) <0.80 IS CONSENT FORM SIGNED FOR HIV TESTING? RICHAB [id number] 04:41:00* Test Item Value Reference Range Interpretation Comme nts AB TREPONEMA (test code = TREPAB) NONREACTIVE NONREACTIVE IS CONSENT FORM SIGNED FOR HIV TESTING? RICHAB HIV 1 04:41:00* Test Item Value Reference Range Interpretation Comme nts AB HIV 1 2 (test code = PKO88ZK) NONREACTIVE IS CONSENT FORM SIGNED FOR HIV TESTING? YCOMPREHENSIVE METABOLIC [id number] 02:39:00* Test Item Value Reference Range Interpretation Comme nts SODIUM (test code = NA) 135 mEq/L 135-145 N POTASSIUM (test code = K) 4.0 mEq/L 3.5-5.0 N CHLORIDE (test code = CL) 101 mEq/L 100-115 N CARBON DIOXIDE (test code = CO2) 26 mEq/L 22-31 N ANION GAP (test code = GAP) 12.50 10-20 N GLUCOSE (test code = GLU) 83 mg/dL 65-110 N BLOOD UREA NITROGEN (test co de = BUN) 8 mg/dL 7-18 N GLOMERULAR FILTRATION RATE ( test code = GFR) 94 ml/min >60 N CREATININE (test code = CREAT) 0.7 mg/dL 0.5-1.0 N TOTAL PROTEIN (test code = PROT) 6.2 gm/dL 6.3-8.2 L ALBUMIN (test code = ALB) 2.6 gm/dL 3.4-4.8 L CALCIUM (test code = CA) 8.3 mg/dL 8.4-10.2 L BILIRUBIN TOTAL (test code = BILT) 0.2 mg/dL 0.2-1.0 N SGOT/AST (test code = AST) 21 units/L 15-37 N SGPT/ALT (test code = ALT) 23 units/L 12-78 N ALKALINE PHOSPHATASE TOTAL ( test code = ALKP) 183 units/L 46-116 H COVID 19 Asymptomatic IH [id number] 00:09:00* Test Item Value Reference Range Interpretation Comme nts COVID 19 Asymptomatic IH AG (test code = COVNONPUIAG) NEGATIVE NEGATIVE This test has be en authorized only for the detection ofproteins from SARS-CoV-2, not for any other viruses orpathogens. Negative results should be treated as presumptive andconfirmed with a molecular assay, if necessary for patientmanagement. Negative results do not rule out COVID-19 andshould not be used as the sole basis for treatment orpatient management decisions, including infection controldecisions. Negative results should be considered in thecontext of a patient's recent exposures, history and thepresence of clinical signs and symptoms consistent withCOVID-19. This test has not been FDA cleared or approved; the test hasbeen authorized by FDA under an Emergency Use Authorization(EUA) for use by laboratories certified under the CLIA thatmeet the requirements to perform moderate, high or waivedcomplexity tests. This test is authorized for use at thePoint of Care (POC), i.e., in patient care settingsoperating under a CLIA Certificate of Waiver, Certificate ofCompliance, or Certificate of Accreditation. This test is only authorized for the duration of thedeclaration that circumstances exist justifying theauthorization of emergency use of in vitro diagnostic testsfor detection and/or diagnosis of COVID-19 under Pjhtmxg681(b)(1) of the Act, 21 U.S.C. 360bbb-3(b)(1), unless theauthorization is terminated or revoked sooner. CBC W/AUTO [id number] 00:00:00* Test Item Value Reference Range Interpretation Comme nts WHITE BLOOD CELL (test code = WBC) 20.9 K/mm3 6.6-12.1 HH RESULTS CALLED Susanna narayan.READ BACK & CONFIRMED? yes.BY NARDA.MR 09/13/20 8260. RED BLOOD CELL (test code = RBC) 3.61 M/mm3 3.45-5.01 N HEMOGLOBIN (test code = HGB) 11.4 g/dL 10.7-13.9 N HEMATOCRIT (test code = HCT) 34.7 % 32.1-42.1 N MEAN CELL VOLUME (test code = MCV) 96 fL 84.1-94.8 H MEAN CELL HGB (test code = MCH) 31.6 pg 27-35 N MEAN CELL HGB CONCETRATION (test code = MCHC) 32.9 gm/dL 32.2-34.1 N RED CELL DISTRIBUTION WIDTH (test code = RDW) 14.5 % 12.4-16.5 N PLATELET COUNT (test code = PLT) 321 K/mm3 133-385 N MEAN PLATELET VOLUME (test code = MPV) 9.8 fl 9.1-12.7 N NEUTROPHIL % (test code = NT%) 80.9 % 56.5-79.4 H LYMPHOCYTE % (test code = LY%) 12.9 % 14.3-34.3 L MONOCYTE % (test code = MO%) 4.4 % 5.1-10.4 L EOSINOPHIL % (test code = EO%) 1.0 % 0.1-3.0 N BASOPHIL % (test code = BA%) 0.2 % 0.1-1.0 N NEUTROPHIL # (test code = NT#) 16.9 K/mm3 LYMPHOCYTE # (test code = LY#) 2.7 K/mm3 MONOCYTE # (test code = MO#) 0.9 K/mm3 EOSINOPHIL # (test code = EO#) 0.21 K/mm3 BASOPHIL # (test code = BA#) 0.1 K/mm3 RBC MORPHOLOGY REQUIRED (test code = RBCM) NORMAL NORMAL PLATELET MORPHOLOGY REQUIRED (test code = PLTMR) NORMAL NORMAL ADC / LCC - DRUG SCREEN [id number] 22:29:00* Test Item Value Reference Range Interpretation Comme nts BENZO U (test code = 7826563986) Presumptive Positive Negative A ARNOLD U (test code = 6400906399) Negative Negative AMPHET (test code = 8620602486) Negative Negative THC (test code = 8476485109) Presumptive Positive Negative A Confirmation of Presumptive Positive THC result requires physician order. METHADONE (test code = 6578968010) Negative Negative Meth U (test code = 4209281623) Negative Negative OPIATES (test code = 0050841664) Presumptive Positive Negative A Cocaine Metabolite (test code = 0000474955) Negative Negative PROPOXY (test code = 2100181601) Negative Negative Tric U (test code = 0669596923) Negative Negative PCP (test code = 1642490688) Negative Negative OXYCOD (test code = 4466763926) Negative Negative YAMIL (test code = YAMIL) Urine Drug Cutoff Ranges Benzodiazepines: ? ? 150 ng/mLBarbiturates : [...] employment testing, legal testing). Lab Interpretation (test code = 89860-5) Abnormal [facility], [place]COMP. METABOLIC PANEL (04031)2020-09-12 21:50:00* Test Item Value Reference Range Interpretation Comme nts NA (test code = 3612377969) 133 mmol/L 135-145 L K (test code = 1687564357) 3.8 mmol/L 3.5-5 CL (test code = 4878905035) 106 mmol/L 98-108 CO2 TOTAL (test code = 3986718987) 23 mmol/L 23-31 AGAP (test code = 9688823800) 2-16 BUN (test code = 8532652867) 10 mg/dL 7-23 GLUCOSE (test code = 4508582369) 106 mg/dL 70-110 CREATININE (test code = 7554885052) 0.53 mg/dL 0.5-1.04 TOTAL BILI (test code = 1167887284) 0.3 mg/dL 0.1-1.1 CALCIUM (test code = 5916241107) 8.3 mg/dL 8.6-10.6 L T PROTEIN (test code = 0218691494) 6.0 g/dL 6.3-8.2 L ALBUMIN (test code = 7947066130) 3.1 g/dL 3.5-5 L ALK PHOS (test code = 1735675959) 185 U/L 34-122 H ALTv (test code = 1742-6) 15 U/L 5-35 AST(SGOT) (test code = 0477700838) 24 U/L 13-40 eGFR Calculation (Non-) (test code = 4102958026) mL/min/1.73m2 eGFR Calculation () (test code = 8134280195) mL/min/1.73m2 YAMIL (test code = YAMIL) Association of [...] or abnormalities in imaging tests). Lab Interpretation (test code = 48970-2) Abnormal [facility], [place]MAGNESIUM2020-11-11 21:50:00* Test Item Value Reference Range Interpretation Comme nts MAGNESIUM (test code = 7565151723) 1.8 mg/dL 1.7-2.4 Lab Interpretation (test cod e = 06146-2) Normal [facility] WITH [id number] 21:37:00* Test Item Value Reference Range Interpretation Comme nts WBC (test code = 6690-2) See_Comment H [Automated message] The system which generated this result transmitted reference range: 4.30 - 11.10 10*3/?L. The reference range was not used to interpret this result as normal/abnormal. RBC (test code = 789-8) See_Comment L [Automated message] The system which generated this result transmitted reference range: 3.93 - 5.25 10*6/?L. The reference range was not used to interpret this result as normal/abnormal. HGB (test code = 718-7) 10.7 g/dL 11.6-15 L HCT (test code = 4544-3) 32.4 % 35.7-45.2 L MCV (test code = 787-2) 94.7 fL 80.6-95.5 MCH (test code = 785-6) 31.3 pg 25.9-32.8 MCHC (test code = 786-4) 33.0 g/dL 31.6-35.1 RDW-SD (test code = 12840-5) 49.1 fL 39-49.9 RDW-CV (test code = 788-0) 14.3 % 12-15.5 PLT (test code = 777-3) See_Comment [Automated message] The system which generated this result transmitted reference range: 166 - 358 10*3/?L. The reference range was not used to interpret this result as normal/abnormal. MPV (test code = 24133-1) 10.0 fL 9.5-12.9 NRBC/100 WBC (test code = 4121533559) See_Comment [Automated message] The system which generated this result transmitted reference range: 0.0 - 10.0 /100 WBCs. The reference range was not used to interpret this result as normal/abnormal. NRBC x10^3 (test code = 2774524687) <0.01 See_Comment [Automated message] The system which generated this result transmitted reference range: 10*3/?L. The reference range was not used to interpret this result as normal/abnormal. GRAN MAT (NEUT) % (test code = 770-8) 77.1 % IMM GRAN % (test code = 9323829438) 1.00 % LYMPH % (test code = 736-9) 15.4 % MONO % (test code = 5905-5) 5.1 % EOS % (test code = 713-8) 1.1 % BASO % (test code = 706-2) 0.3 % GRAN MAT x10^3(ANC) (test code = 5636479079) 11.59 10*3/uL 1.88-7.09 H IMM GRAN x10^3 (test code = 1521161992) 0.15 10*3/uL 0-0.06 H LYMPH x10^3 (test code = 731-0) 2.32 10*3/uL 1.32-3.29 MONO x10^3 (test code = 742-7) 0.76 10*3/uL 0.33-0.92 EOS x10^3 (test code = 711-2) 0.17 10*3/uL 0.03-0.39 BASO x10^3 (test code = 704-7) 0.05 10*3/uL 0.01-0.07 Lab Interpretation (test code = 86921-0) Abnormal [facility] [place], TXGROUP B STREPTOCOCCUS BY [id number] 14:02:00* Test Item Value Reference Range Interpretation Comme nts Group B Streptococcus by PCR (test code = 45506-6) Negative Negative Lab Interpretation (test cod e = 89137-0) Normal [facility], TXCOVID-19 (ID NOW RAPID TESTING)2020-09-11 00:51:00* Test Item Value Reference Range Interpretation Comme nts SARS-CoV-2 Rapid ID NOW (test code = 16427-0) Not Detected Not Detected YAMIL (test code = YAMIL) ID NOW COVID-19 As say is an isothermal nucleic acid amplification test intended for the qualitative detection of nucleic acid from SARS-CoV-2 viral RNA in nasopharyngeal (SCHOOL CUSTODIAN) specimens. It is used under Emergency Use [...] patient testing if clinically indicated. Lab Interpretation (test code = 32849-9) Normal [facility], TXCB WITH [id number] 00:50:00* Test Item Value Reference Range Interpretation Comme nts WBC (test code = 6690-2) See_Comment H [Automated Betweena ge] The system which generated this result transmitted reference range: 4.30 - 11.10 10*3/?L. The reference range was not used to interpret this result as normal/abnormal. RBC (test code = 789-8) See_Comment L [Automated Betweena ge] The system which generated this result transmitted reference range: 3.93 - 5.25 10*6/?L. The reference range was not used to interpret this result as normal/abnormal. HGB (test code = 718-7) 10.8 g/dL 11.6-15 L HCT (test code = 4544-3) 32.6 % 35.7-45.2 L MCV (test code = 787-2) 95.0 fL 80.6-95.5 MCH (test code = 785-6) 31.5 pg 25.9-32.8 MCHC (test code = 786-4) 33.1 g/dL 31.6-35.1 RDW-SD (test code = 35449-9) 50.4 fL 39-49.9 H RDW-CV (test code = 788-0) 14.5 % 12-15.5 PLT (test code = 777-3) See_Comment [Automated messa ge] The system which generated this result transmitted reference range: 166 - 358 10*3/?L. The reference range was not used to interpret this result as normal/abnormal. MPV (test code = 08278-9) 9.9 fL 9.5-12.9 NRBC/100 WBC (test code = 3888030972) See_Comment [Automated Semanticator ssage] The system which generated this result transmitted reference range: 0.0 - 10.0 /100 WBCs. The reference range was not used to interpret this result as normal/abnormal. NRBC x10^3 (test code = 5758693852) <0.01 See_Comment [Automated messa ge] The system which generated this result transmitted reference range: 10*3/?L. The reference range was not used to interpret this result as normal/abnormal. GRAN MAT (NEUT) % (test code = 770-8) 76.4 % IMM GRAN % (test code = 9891772113) 0.90 % LYMPH % (test code = 736-9) 16.0 % MONO % (test code = 5905-5) 5.2 % EOS % (test code = 713-8) 1.3 % BASO % (test code = 706-2) 0.2 % GRAN MAT x10^3(ANC) (test code = 8655088020) 9.39 10*3/uL 1.88-7.09 H IMM GRAN x10^3 (test code = 7599676906) 0.11 10*3/uL 0-0.06 H LYMPH x10^3 (test code = 731-0) 1.97 10*3/uL 1.32-3.29 MONO x10^3 (test code = 742-7) 0.64 10*3/uL 0.33-0.92 EOS x10^3 (test code = 711-2) 0.16 10*3/uL 0.03-0.39 BASO x10^3 (test code = 704-7) 0.03 10*3/uL 0.01-0.07 Lab Interpretation (test code = 14289-6) Abnormal [facility] [place], TXLactate [id number] 08:28:44* Test Item Value Reference Range Interpretation Comme nts LDH (test code = LDH) 166 U/L 120-246 Comprehensive Metabolic [id number] 08:16:47* Test Item Value Reference Range Interpretation Comme nts Sodium Level (test code = So dium Level) 139.0 mmol/L 136.0-145.0 Potassium Level (test code = Potassium Level) 4.20 mmol/L 3.50-5.10 Chloride Level (test code = Chloride Level) 105.0 mmol/L 98.0-107.0 CO2 (test code = CO2) 26 mmol/L 20-31 Anion Gap (test code = Anion Gap) 8.2 mmol/L 5.0-15.0 BUN (test code = BUN) 5 mg/dL 9-23 L Creatinine Level (test code = Creatinine Level) 0.43 mg/dL 0.55-1.02 L BUN/Creat Ratio (test code = BUN/Creat Ratio) 11.6 ratio 10.0-20.0 Glucose Level (test code = Glucose Level) 75 mg/dL 74-106 Calcium Level (test code = Calcium Level) 8.4 mg/dL 8.3-10.6 Alk Phos (test code = Alk Phos) 121 U/L 46-116 H Bilirubin Total (test code = Bilirubin Total) <0.2 mg/dL 0.2-1.1 Albumin Level (test code = Albumin Level) 3.5 g/dL 3.2-4.8 Protein Total (test code = Protein Total) 5.7 g/dL 5.7-8.2 ALT (test code = ALT) 7 U/L 10-49 L AST (test code = AST) 13 U/L <=34 Globulin (test code = Globulin) 2.2 g/dL 2.3-3.5 L A/G Ratio (test code = A/G Ratio) 1.6 g/dL 0.8-2.0 Hemolysis (test code = Hemolysis) 0 g/dL 1-2 Icterus (test code = Icterus) 0 g/dL 1-2 Lipemia (test code = Lipemia) 0 g/dL 1-2 Comprehensive Metabolic [id number] 08:16:47* Test Item Value Reference Range Interpretation Comme nts Sodium Level (test code = Sodium Level) 139.0 mmol/L 136.0-145.0 Potassium Level (test code = Potassium Level) 4.20 mmol/L 3.50-5.10 Chloride Level (test code = Chloride Level) 105.0 mmol/L 98.0-107.0 CO2 (test code = CO2) 26 mmol/L 20-31 Anion Gap (test code = Anion Gap) 8.2 mmol/L 5.0-15.0 BUN (test code = BUN) 5 mg/dL 9-23 L Creatinine Level (test code = Creatinine Level) 0.43 mg/dL 0.55-1.02 L BUN/Creat Ratio (test code = BUN/Creat Ratio) 11.6 ratio 10.0-20.0 Glucose Level (test code = Glucose Level) 75 mg/dL 74-106 Calcium Level (test code = Calcium Level) 8.4 mg/dL 8.3-10.6 Alk Phos (test code = Alk Phos) 121 U/L 46-116 H Bilirubin Total (test code = Bilirubin Total) <0.2 mg/dL 0.2-1.1 Albumin Level (test code = Albumin Level) 3.5 g/dL 3.2-4.8 Protein Total (test code = Protein Total) 5.7 g/dL 5.7-8.2 ALT (test code = ALT) 7 U/L 10-49 L AST (test code = AST) 13 U/L <=34 Globulin (test code = Globulin) 2.2 g/dL 2.3-3.5 L A/G Ratio (test code = A/G Ratio) 1.6 g/dL 0.8-2.0 eGFR AA (test code = eGFR AA) >60 mL/min/1.73 m2 >=60 eGFR (estimated Glomerular Filtration Rate) is an estimated value, calculated from the patient's serum creatinine using the MDRD equation. It is NOT the patient's actual GFR. The eGFR provides a more clinically useful measure of kidney disease than serum creatinine alone.This calculation takes sex and race into account, if the information is provided. If the race is not provided, and the patient is -[place], multiply by 1.212. If sex is not provided, and the patient is female, multiply by 0.742. Results for patients <18 years of age have not been validated by the MDRD study and should be interpreted with caution. eGFR Result Interpretation:eGFR > or = 60 is in the Normal RangeeGFR < 60 may mean kidney diseaseeGFR < 15 may mean kidney failure Ranges recommended by the National Kidney Foundation, http://nkdep.nih.gov eGFR Non-AA (test code = eGFR Non-AA) >60.00 mL/min/1.73 m2 >=60.00 eGFR (estimated Glomerular Filtration Rate) is an estimated value, calculated from the patient's serum creatinine using the MDRD equation. It is NOT the patient's actual GFR. The eGFR provides a more clinically useful measure of kidney disease than serum creatinine alone.This calculation takes sex and race into account, if the information is provided. If the race is not provided, and the patient is -[place], multiply by 1.212. If sex is not provided, and the patient is female, multiply by 0.742. Results for patients <18 years of age have not been validated by the MDRD study and should be interpreted with caution. eGFR Result Interpretation:eGFR > or = 60 is in the Normal RangeeGFR < 60 may mean kidney diseaseeGFR < 15 may mean kidney failure Ranges recommended by the [employer], http://nkdep.nih.gov Hemolysis (test code = Hemolysis) 0 g/dL 1-2 Icterus (test code = Icterus) 0 g/dL 1-2 Lipemia (test code = Lipemia) 0 g/dL 1-2 Comprehensive Metabolic [id number] 08:16:47* Test Item Value Reference Range Interpretation Comme nts Sodium Level (test code = Sodium Level) 139.0 mmol/L 136.0-145.0 Potassium Level (test code = Potassium Level) 4.20 mmol/L 3.50-5.10 Chloride Level (test code = Chloride Level) 105.0 mmol/L 98.0-107.0 CO2 (test code = CO2) 26 mmol/L 20-31 Anion Gap (test code = Anion Gap) 8.2 mmol/L 5.0-15.0 BUN (test code = BUN) 5 mg/dL 9-23 L Creatinine Level (test code = Creatinine Level) 0.43 mg/dL 0.55-1.02 L BUN/Creat Ratio (test code = BUN/Creat Ratio) 11.6 ratio 10.0-20.0 Glucose Level (test code = Glucose Level) 75 mg/dL 74-106 Calcium Level (test code = Calcium Level) 8.4 mg/dL 8.3-10.6 Alk Phos (test code = Alk Phos) 121 U/L 46-116 H Bilirubin Total (test code = Bilirubin Total) <0.2 mg/dL 0.2-1.1 Albumin Level (test code = Albumin Level) 3.5 g/dL 3.2-4.8 Protein Total (test code = Protein Total) 5.7 g/dL 5.7-8.2 ALT (test code = ALT) 7 U/L 10-49 L AST (test code = AST) 13 U/L <=34 Globulin (test code = Globulin) 2.2 g/dL 2.3-3.5 L A/G Ratio (test code = A/G Ratio) 1.6 g/dL 0.8-2.0 eGFR AA (test code = eGFR AA) >60 mL/min/1.73 m2 >=60 eGFR (estimated Glomerular Filtration Rate) is an estimated value, calculated from the patient's serum creatinine using the MDRD equation. It is NOT the patient's actual GFR. The eGFR provides a more clinically useful measure of kidney disease than serum creatinine alone.This calculation takes sex and race into account, if the information is provided. If the race is not provided, and the patient is [place], multiply by 1.212. If sex is not provided, and the patient is female, multiply by 0.742. Results for patients <18 years of age have not been validated by the MDRD study and should be interpreted with caution. eGFR Result Interpretation:eGFR > or = 60 is in the Normal RangeeGFR < 60 may mean kidney diseaseeGFR < 15 may mean kidney failure Ranges recommended by the National Kidney Foundation, http://nkdep.nih.gov eGFR Non-AA (test code = eGFR Non-AA) >60.00 mL/min/1.73 m2 >=60.00 eGFR (estimated Glomerular Filtration Rate) is an estimated value, calculated from the patient's serum creatinine using the MDRD equation. It is NOT the patient's actual GFR. The eGFR provides a more clinically useful measure of kidney disease than serum creatinine alone.This calculation takes sex and race into account, if the information is provided. If the race is not provided, and the patient is [place], multiply by 1.212. If sex is not provided, and the patient is female, multiply by 0.742. Results for patients <18 years of age have not been validated by the MDRD study and should be interpreted with caution. eGFR Result Interpretation:eGFR > or = 60 is in the Normal RangeeGFR < 60 may mean kidney diseaseeGFR < 15 may mean kidney failure Ranges recommended by the National Kidney Foundation, http://nkdep.nih.gov Hemolysis (test code = Hemolysis) 0 g/dL 1-2 Icterus (test code = Icterus) 0 g/dL 1-2 Lipemia (test code = Lipemia) 0 g/dL 1-2 Complete Blood Count without Truy8132-35-47 08:09:40* Test Item Value Reference Range Interpretation Comme nts WBC (test code = WBC) 11.9 x10 [...] = NRBC Abs) 0.00 x10 N Creatinine Nxkts7421-48-81 15:39:13* Test Item Value Reference Range Interpretation Comme nts U Creatinine (test code = U Creatinine) 89.1 mg/dL N Reference r anges have not been established for this assay. Protein Wlbrh8587-16-03 15:39:13* Test Item Value Reference Range Interpretation Comme nts U Protein (test code = U Protein) 10.4 mg/dL 1.0-14.0 Complete Blood Count without Otsm7892-26-57 06:39:12* Test Item Value Reference Range Interpretation Comme nts WBC (test code = WBC) 11.9 x10 [...] x10 N US OB Greater Than 14 Ysjje0721-34-46 19:21:42Patient: MARTINE LENTZ Date/Time07/26/2020 17:29 CDTReason for Examper md order;Other (please specify)ReportOB ULTRASOUND LIMITEDLocation: [id number] HISTORY: Confirm pregnancyLMP gest.age by LMP 34 [...] the exam early. Final Dictated by: MD Rj, EvelynVDictated DT/TM: 07/26/2020 7:17 pmSigned by: MD De La Rosa Maria VSigned (Electronic Signature): 07/26/2020 7:21 pmBeta HCG Aiuipejtbjow6353-60-84 14:42:56* Test Item Value Reference Range Interpretation Comme nts HCG, Beta Quantitative (test code = HCG, Beta Quantitative) 54403.1 mIU/mL N 17-54 (Non-)?41 (Post-menopausal) RPR Nqenoukocef6535-94-39 12:50:28* Test Item Value Reference Range Interpretation Comme nts RPR Qual (test code = RPR Qual) Non-Reactive Non-Reactive Reactive Control (test code = Reactive Control) Reactive Weak Reactive Control (test code = Weak Reactive Control) Weak Reactive Non-Reactive Control (test c ode = Non-Reactive Control) Non-Reactive Lot # (test code = Lot #) [id number] N Expiration Dt (test code = Expiration Dt) 08-01-2021 N Lipid Uoqti4901-54-08 07:58:23* Test Item Value Reference Range Interpretation Comme nts Cholesterol Total (test code = Cholesterol Total) 187 mg/dL N Low-risk leve l (desirable) - <200 mg/dlModerate-risk level (borderline) - 200-239 mg/dlHigh-risk level - ?240 mg/dl Triglycerides (test code = Triglycerides) 223 mg/dL N Normal - < 150 mg/dlBorderline high - 150-199 mg/dlHigh - 200-499 mg/dlVery high - ?500 mg/dl HDL (test code = HDL) 50.50 mg/dL N Lo w-risk level (desirable) - ?60 mg/dlHigh-risk level (undesirable) - <40 mg/dl LDL (test code = LDL) 92 mg/dL N The equation being used in this calculation is LDL = (Chol - HDL) - (Trig / 5) VLDL (test code = VLDL) 45 mg/dL 5-40 H The equation jennifer ng used in this calculation is VLDL = Trig / 5 Chol/HDL (test code = Chol/HDL) 3.7 ratio <=5.0 LDL/HDL Ratio (test code = LDL/HDL Ratio) 4 N The equati on being used in this calculation is LDL/HDL Ratio=LDL Calc/HDL Chol Thyroid Stimulating Yjphwoo5759-60-11 07:58:23* Test Item Value Reference Range Interpretation Comme nts TSH (test code = TSH) 1.312 mcIU/mL 0.550-4.780 Hemoglobin G4x4337-19-43 07:54:16* Test Item Value Reference Range Interpretation Comme nts Hemoglobin A1c (test code = Hemoglobin A1c) 5.1 % 4.0-5.8 Diabetic >=6.5 %Prediabetes 5.7-6.4 %Normal <5.7 % ADC / C - DRUG SCREEN FWMHGK0876-51-32 22:40:00* Test Item Value Reference Range Interpretation Comme nts BENZO U (test code = 7115367518) Negative Negative ARNOLD U (test code = 3948487665) Negative Negative AMPHET (test code = 2201857192) Negative Negative THC (test code = 9235254388) Negative Negative METHADONE (test code = 0782972390) Negative Negative Meth U (test code = 2606247586) Negative Negative OPIATES (test code = 7877002261) Negative Negative Cocaine Metabolite (test code = 3025616407) Negative Negative PROPOXY (test code = 1685710438) Negative Negative Tric U (test code = 6407788459) Negative Negative PCP (test code = 7882292733) Negative Negative OXYCOD (test code = 9336820106) Negative Negative YAMIL (test code = YAMIL) Urine Drug [...] employment testing, legal testing). Lab Interpretation (test code = 04540-1) Normal [facility] [place], [place] URINALYS[place] W/O SPECIFIC ZKOJGBV0267-56-99 14:00:00* Test Item Value Reference Range Interpretation Comme nts POCT PH U (test code = 3254) N/A 5-8 POCT U LEUK EST (test code = 3263) N/A Negative - Negative POCT U NIT (test code = 3262) N/A Negative - Negati ve POCT U PROT (test code = 3259) Negative Negative - Negat nikko POCT U GLU (test code = 3256) Negative Negative - Negati ve POCT U KETONE (test code = 3258) N/A Negative - Neg ative POCT U BLD (test code = 3257) N/A Negative - Negati ve [facility]. METABOLIC PANEL (25645)2020-03-07 00:39:00* Test Item Value Reference Range Interpretation Comme nts NA (test code = 3117912027) 139 mmol/L 135-145 K (test code = 2505478754) 3.9 mmol/L 3.5-5 CL (test code = 5120832725) 108 mmol/L 98-108 CO2 TOTAL (test code = 8308896787) 22 mmol/L 23-31 L AGAP (test code = 2766796340) 2-16 BUN (test code = 0813836861) 5 mg/dL 7-23 L GLUCOSE (test code = 3523258173) 103 mg/dL 70-110 CREATININE (test code = 9542889626) 0.44 mg/dL 0.5-1.04 L TOTAL BILI (test code = 7241095070) <0.1 0.1-1.1 L CALCIUM (test code = 1199903595) 9.7 mg/dL 8.6-10.6 T PROTEIN (test code = 2222753010) 6.2 g/dL 6.3-8.2 L ALBUMIN (test code = 8628558661) 3.6 g/dL 3.5-5 ALK PHOS (test code = 7988447002) 56 U/L 34-122 ALTv (test code = 1742-6) 10 U/L 5-35 AST(SGOT) (test code = 9141007006) 20 U/L 13-40 eGFR Calculation (Non-) (test code = 9715772832) mL/min/1.73m2 eGFR Calculation () (test code = 3154314261) mL/min/1.73m2 YAMIL (test code = YAMIL) Association of [...] or abnormalities in imaging tests). Lab Interpretation (test code = 24469-1) Abnormal [facility] [place], TXACETAMINOPHEN2020-05-06 00:39:00* Test Item Value Reference Range Interpretation Comme nts ACETAMINOP (test code = 7024551437) <10.0 10-30 L YAMIL (test code = YAMIL) Toxic: Greater hanan n 200 ug/mL @ 4 hour post ingestion or greater than 50 ug/mL @ 12 hour post ingestion Lab Interpretation (test code = 59644-7) Abnormal [facility] [place], TXSALICYLATE2020-05-06 00:39:00* Test Item Value Reference Range Interpretation Comme nts SALICYLATE (test code = 5787746717) <10 mg/L YAMIL (test code = YAMIL) Therapeutic Range: ? Analgesic and Antipyretic Use ? 20-100 mg/L ? ? Anti-Inflammatory Use ? 100-250 mg/L Toxic Range: ? Greater than 300 mg/L [facility] [place], TXPOCT WDDX7453-00-10 00:38:00* Test Item Value Reference Range Interpretation Comme nts POCT PREG (test code = 1605) positive On board controls acceptable with C Line (test code = 3574) present POCT PREG LOT # (test code = 3575) [id number] POCT PREG TEST DATE ( test code = 3576) 06-01-2021 Lab Interpretation (test cod e = 80986-9) Normal 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 [place], [place]MAGNESIUM2020-05-06 00:36:00* Test Item Value Reference Range Interpretation Comme nts MAGNESIUM (test code = 1222952948) 1.6 mg/dL 1.7-2.4 L Lab Interpretation (test cod e = 75403-9) Abnormal [facility] [place], [place]URINALYSIS2020-05-06 00:15:00* Test Item Value Reference Range Interpretation Comme nts APPEARANCE (test code = 0218709082) Clear Clear COLOR (test code = 9529875294) Yellow Yellow PH (test code = 8514652071) 4.8-8.0 SP GRAVITY (test code = 8312549210) 1.003-1.030 GLU U QUAL (test code = 5653083535) Normal Normal BLOOD (test code = 2741601839) Negative Negative KETONES (test code = 6113267784) Negative Negative PROTEIN (test code = 2887-8) Negative Negative UROBILIN (test code = 9686255876) Normal Normal BILIRUBIN (test code = 2587341130) Negative Negative NITRITE (test code = 7242444578) Negative Negative LEUK MARY (test code = 3726918525) Negative Negative RBC/HPF (test code = 7986678330) <1 See_Comment [Automated Betweena ge] The system which generated this result transmitted reference range: 0 - 3 HPF. The reference range was not used to interpret this result as normal/abnormal. WBC/HPF (test code = 0001082796) See_Comment [Automated Betweena ge] The system which generated this result transmitted reference range: 0 - 5 HPF. The reference range was not used to interpret this result as normal/abnormal. BACTERIA (test code = 6235174808) Few Negative A MUCOUS (test code = 6295263076) Slight Negative LPF A SQ EPITH (test code = 7882319225) HPF Lab Interpretation (test code = 63576-0) Abnormal [facility] [place], TXADC / LCC - DRUG SCREEN BLNWIB4635-92-32 23:49:00* Test Item Value Reference Range Interpretation Comme nts BENZO U (test code = 3771064087) Presumptive Positive Negative A ARNOLD U (test code = 6927219892) Negative Negative AMPHET (test code = 5763364199) Negative Negative THC (test code = 6515043073) Negative Negative METHADONE (test code = 4648567591) Negative Negative Meth U (test code = 1175162557) Negative Negative OPIATES (test code = 1611569146) Negative Negative Cocaine Metabolite (test code = 9633915335) Negative Negative PROPOXY (test code = 8849237985) Negative Negative Tric U (test code = 1773948973) Negative Negative PCP (test code = 5906721163) Negative Negative OXYCOD (test code = 5062411708) Negative Negative YAMIL (test code = YAMIL) Urine Drug [...] employment testing, legal testing). Lab Interpretation (test code = 18535-6) Abnormal [facility] WITH DAUAIBKKXJSY5761-71-18 23:34:00* Test Item Value Reference Range Interpretation Comme nts WBC (test code = 6690-2) See_Comment H [Automated Betweena ge] The system which generated this result transmitted reference range: 4.30 - 11.10 10*3/?L. The reference range was not used to interpret this result as normal/abnormal. RBC (test code = 789-8) See_Comment L [Automated messa ge] The system which generated this result transmitted reference range: 3.93 - 5.25 10*6/?L. The reference range was not used to interpret this result as normal/abnormal. HGB (test code = 718-7) 11.3 g/dL 11.6-15 L HCT (test code = 4544-3) 33.2 % 35.7-45.2 L MCV (test code = 787-2) 89.5 fL 80.6-95.5 MCH (test code = 785-6) 30.5 pg 25.9-32.8 MCHC (test code = 786-4) 34.0 g/dL 31.6-35.1 RDW-SD (test code = 05870-9) 42.4 fL 39-49.9 RDW-CV (test code = 788-0) 13.0 % 12-15.5 PLT (test code = 777-3) See_Comment [Automated messa ge] The system which generated this result transmitted reference range: 166 - 358 10*3/?L. The reference range was not used to interpret this result as normal/abnormal. MPV (test code = 43109-3) 9.7 fL 9.5-12.9 NRBC/100 WBC (test code = 7507741521) See_Comment [Automated Semanticator ssage] The system which generated this result transmitted reference range: 0.0 - 10.0 /100 WBCs. The reference range was not used to interpret this result as normal/abnormal. NRBC x10^3 (test code = 0472752413) <0.01 See_Comment [Automated messa ge] The system which generated this result transmitted reference range: 10*3/?L. The reference range was not used to interpret this result as normal/abnormal. GRAN MAT (NEUT) % (test code = 770-8) 72.0 % IMM GRAN % (test code = 8069363248) 0.40 % LYMPH % (test code = 736-9) 21.6 % MONO % (test code = 5905-5) 3.9 % EOS % (test code = 713-8) 1.8 % BASO % (test code = 706-2) 0.3 % GRAN MAT x10^3(ANC) (test code = 1261221353) 8.22 10*3/uL 1.88-7.09 H IMM GRAN x10^3 (test code = 6931668018) 0.05 10*3/uL 0-0.06 LYMPH x10^3 (test code = 731-0) 2.47 10*3/uL 1.32-3.29 MONO x10^3 (test code = 742-7) 0.45 10*3/uL 0.33-0.92 EOS x10^3 (test code = 711-2) 0.20 10*3/uL 0.03-0.39 BASO x10^3 (test code = 704-7) 0.03 10*3/uL 0.01-0.07 Lab Interpretation (test code = 49197-1) Abnormal [facility] [place], TXRPR, Zgan8294-85-97 14:45:00* Test Item Value Reference Range Interpretation Comme nts RPR (test code = RPR) Non-Reactive Non-Reactive N Thyroid Stimulating Hormone (TSH)2017-12-30 07:29:00* Test Item Value Reference Range Interpretation Comme nts TSH (test code = TSH) 2.42 mIU/mL 0.270-4.200 N BHCG, Serum, Rlfpefljmpfo7451-92-92 07:29:00* Test Item Value Reference Range Interpretation Comme nts B hCG, Quant (test code = BHCGQT) <1 mIU/mL Weeks of Gestati on Ranges (mIU/mL)3 weeks 5.40 - 72.04 weeks 10.2 - 7085 weeks 217 - 63006 weeks 152 - 032778 weeks 4059 - 2239526 weeks 65499 - 4937518 weeks 98766 - 48775069 weeks 20977 - 58896926 weeks 21129 - 67340969 weeks 24982 - 4680444 weeks 23935 - 8138000 weeks 1210 - 1907049 weeks 3709 - 8149611 weeks 0471 - 81573 Lipid Izuqoqc8911-73-91 07:19:00* Test Item Value Reference Range Interpretation Comme nts Cholesterol (test code = CHOL) 132 mg/dL 0-200 N Triglycerides (test code = TRIG) 122 mg/dL 9-200 N HDL (test code = HDL) 21 mg/dL 50-60 L Chol/HDL (test code = CHOLPHDL) 6.3 Ratio 0.0-4.4 H LDL, Calculated (test code = LDLC) 87 0-130 N (NOTE)RISK OF HEART DISEASEPublished by [place] Heart AssociationAnalyte Optimal Boderline Increased RiskCHOL <200 200-239 >240TRIG <150 150-199 >200HDL Male: >60 <40HDL Female: >60 <50LDL <100 130-159 >160LDL NEAR OPTIMAL IS 100-129 VLDL (test code = VLDL) 24 mg/dL 5-40 N LDL/HDL (test code = LDLPHDL) 4 PZQ94854-59-29 04:24:00* Test Item Value Reference Range Interpretation Comme nts Amphetamine (test code = AMPH) Negative Negative N For diagnostic p urposes only, positive results should always be assessedin conjunctionwith the patient's medical history,clinical examination and otherfindings.To fulfill legal requirements, a more specific alternate chemical methodmust be used inorder to obtain a Confirmed analytical result. GC/MS is the preferred confirmatory method. Barbiturates (test code = ARNOLD) Negative Negative N Benzodiazepine (test code = MOHINDER) POSITIVE Negative A Cocaine (test code = COCA) Negative Negative N Methadone (test code = MTHD) Negative Negative N Opiates (test code = OPIA) Negative Negative N PCP (test code = PCP) Negative Negative N Propoxyphene (test code = PROPOX) Negative Negative N THC (test code = THC) POSITIVE Negative A Urinalysis Zmnkivei6427-41-07 03:47:00* Test Item Value Reference Range Interpretation Comme nts Color (test code = COLOR) Berkley Yellow,Straw,Pl yellow A The value [place] originally released by [employer] on 12/30/2017 03:42 waschanged to Berkley by [employer] on 12/30/2017 03:47 Clarity (test code = CLAR) Sl Cloudy Clear A The value Clear originally released by [employer] on 12/30/2017 03:42 waschanged to Sl Cloudy by [employer] on 12/30/2017 03:47 Specific [place] (test code = SPGR) 1.006 1.001-1.035 N pH (test code = PH) 6.5 5.0-9.0 N Ketone (test code = KET) Negative mg/dL Negative N Glucose (test code = GLUCUR) Negative mg/dL Negative N Protein (test code = PROT) Negative mg/dL Negative N Bilirubin (test code = BILI) Negative mg/dL Negative N Occult Blood (test code = UDOB) Large Negative A Urobilinogen (test code = UROB) 0.2 mg/dL 0.2-1.0 N Nitrite (test code = NIT) Negative Negative N Leuk Esterase (test code = LEUK) Small Negative A Micros Exam (test code = MEXAM) Indicated Epithelial Cells (test code = EPI) None /LPF 0-30 A WBC, Urine (test code = UWBC) 0-2 /HPF 0-5 A RBC, Urine (test code = URBC) 51-100 /HPF 0-5 A Bacteria (test code = BACT) Few /HPF Comprehensive Metabolic Fbcxe3695-76-27 01:00:00* Test Item Value Reference Range Interpretation Comme nts Sodium (test code = NA) 139 mmol/L 135-145 N Potassium (test code = K) 3.4 mmol/L 3.5-5.1 L Chloride (test code = CL) 101 mmol/L 98-105 N Carbon Dioxide (test code = CO2) 28 mmol/L 22-29 N Glucose (test code = GLU) 102 mg/dL 70-115 N Blood Urea Nitrogen (test code = BUN) 6 mg/dL 6-20 N Creatinine (test code = CREAT) 0.7 mg/dL 0.5-0.9 N Calcium (test code = CA) 9.4 mg/dL 8.3-10.5 N Prot Total (test code = TP) 6.6 g/dL 6.4-8.3 N Albumin (test code = ALB) 4.3 g/dL 3.5-5.2 N A/G Ratio (test code = AGRATIO) 1.9 Ratio Globulin (test code = GLOB) 2.3 2.9-3.1 L Bili Total (test code = TBIL) <0.1 mg/dL 0.1-0.9 L Alk Phos (test code = APHOS) 84 U/L 35-104 N AST (test code = AST) 16 U/L 1-32 N ALT (test code = ALT) 11 U/L 1-33 N BUN/Creatinine Ratio (test code = BCRATIO) 8.6 Anion Gap (test code = AGAP) 10 mmol/L 7-16 N Estimated GFR (test code = GFR) >60 mL/min/1.73m2 eGFR (estimated Glomerular Filtration Rate) is an estimated value,calculated from the patient's serum creatinine using the MDRD equation.It is NOT the patient's actual GFR. The eGFR provides a more clinicallyuseful measure of kidney disease than serum creatinine alone.This calculation takes sex and race into account, if the informationis provided. If the race is not provided, and the patient isAfrican-[place], multiply by 1.212. If sex is not provided, and thepatient is female, multiply by 0.742. Results for patients <18 years ofage have not been validated by the MDRD study and should be interpretedwith caution.eGFR Result Interpretation:eGFR > or = 60 is in the Normal RangeeGFR < 60 may mean kidney diseaseeGFR < 15 may mean kidney failureRanges recommended by the National Kidney Foundation,http://nkdep .nih.gov Alcohol/Ethanol, Lptoi0920-36-51 01:00:00* Test Item Value Reference Range Interpretation Comme nts Alcohol, Ethyl (test code = ETOH) <0.01 g/dL 0.00-0.01 N Intoxicated 0 .080 g/dL or more CBC with Qqkxotbhuola4755-71-05 00:45:00* Test Item Value Reference Range Interpretation Comme nts WBC (test code = WBC) 12.0 K/cumm [...] 11.5-14.5 N Platelet Count (test code = PLTCT) 393 K/cumm 140-440 N MPV (test code = MPV) 9.3 fL [...] code = ALYMPH) 3.8 K/cumm 0.5-4.6 N Harvey Abs (test code = AMONO) 0.5 K/cumm 0.0-1.2 N Eos Abs (test code = AEOS) 1.24 K/cumm 0.00-0.74 H Baso Abs (test code = ABASO) 0.1 K/cumm 0.00-0.21 N Notes Date/Time Note Provider Source 2023-11-14 15:04:00 EHXPjbsEU9yAXHvgV5a2 A94aeDYEp2aXar B1grmpoiY+zNveBPyAUxgKu1TJ1XvY7798 -01-13T15:04:00 Regardiny/f pt calling states she's been having visions, says someone is going to take kids from her----- Message from Roxanne Perla sent at 11/14/2023 3:02 PM 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 -----Martine Lentz is a 43 year old femalestates she is an addict, and is crying 10383-7Xadehqiwm encounter SzpiXJ0654-06-54M04:04:15Telephone encounter NoteTXT1.2.840.083888.1.13.104.2.7 .2.272878|[id number] for patient prbm15244-3SfnvMOETHTJHCKITyskoylo d C-CDA narrative [id number] Cabello RNUTMBUT - [address] Ee[id number] 29RSERGRSXCOKHHRRGDFAFMD5358-07-65 T15:04:151.2.840.648407.1.72.3.15| 1.2.840.874187.1.13.104.2.7.2.7278 [id number] Alisa Spann RN [facility] 2023-11-14 15:04:00 UqzSo3nNWTsWslXGmprl WkG/KP8j9MZUtB TmsLIo174bzGeEXk7K67jml132ZI5S7286 -01-13T15:04:00 Adult Triage AssessmentLast Clinic Visit: 05/01/23, ER, n/vPrimary Symptom: hallucinationsOnset / Duration: unknownLocation / Description: psychPain / Severity: 12/12 mouth painAssociated Symptoms: mouth hurts, feels like the govt is after her, CPS trying to take her kids awayFever / Method: deniesHydration: eating and drinking less than normal, last void "a few min ago", denies hematuria or dysuria, denies n/v/dTreatment so far: Prozac 60mg todayEffect on ADL's: someLMP: 5 days agoPre-existing condition / Immunocompromised: abdominal pain, anemia, anxiety, depression, STD, drug abuse.Pt reports hx of Schizo effective disorderDanishilpa Lentz is a 43 year old female whose calling with hallucinations. Pt timeline jumping around and hard to follow events when they happened. Pt stating that she feels like the government has hacked her phone and is following her. Pt reports she needs to tell President Jessica what happened. Pt states Pt rambles about lots of events including people are watching her, CPS is taking her kids away, she has stopped pills, now taking them again, she has been on a vent in the hospital, her mom , valuation consultant keep coming to her home, people are going in and out of her home "playing games", and how people think she is crazy. Pt starts crying saying "people" are telling her to kill herself but she wont. Pt states "would you deny God if you were me". Pt reports she takes Adderall, Xanax, Prozac, and Gabapentin. Pt asking this RN to tell her what's in her chart so she can tell "them" and they will leave her alone. Pt denies SI multiple times. Pt reports she feels safe in her home. Pt is home alone. Pt denies any weapons in the home. Assessment and triage completed per protocol. Patient refused to call 911 as advised per protocol. Pt states "No, no, no, I am not calling them". Safety check called into PD who has arrived at pts home. Pt verbalized understanding this RN is going to let her talk to them now so they can make sure that she is okay. Call disconnected.Jose Aguilar for Disposition[1] Patient is very confused (disoriented, slurred speech) AND [2] no other adult (e.g., friend or family member) availableProtocols used: Tfwwbtxvkjfwz-SSVQD-WOFkyhkcwfmrik ly signed by Alisa Spann RN at 11/14/2023 3:49 PM WLG98053-8Xmkpvkieo encounter OkraEB8381-96-96C26:49:32Telephone encounter NoteTXT1.2.840.524286.1.13.104.2.7 .2.566765|[id number] for patient ntwv57335-2FmxcNZMLIIYRYGJMgobauno d C-CDA narrative [address] WwdcXhh[id number] 38NSGCNXSUHQQGSQLHYNPUWZ1893-40-91 T15:49:321.2.840.949958.1.72.3.15| 1.2.840.655642.1.13.104.2.7.2.7278 [id number] [facility] 2020-09-26 14:55:00 SIybmvumigu14808019m zwQ4vZVGctE+Rw M9v59yNoTORa2J74XwA7Gf+UFKy/S2vt3M lbUJs9B7xs1S+xL4078-70-97M12:55:00 [id number], [place] [address] PATIENT NAME: MARTINE LENTZ ADMIT DATE: 09/13/20ACCOUNT NO: [id number] ROOM NO: .2019 AGE: 40 SEX: F ADMITTING PHYSICIAN: Sherman Collazo III, MD ATTENDING PHYSICIAN: Sherman Collazo III, MD ADMISSION DATE: 09/13/2020DISCHARGE DATE: 09/16/2020 ADMITTING DIAGNOSES:1. Intrauterine at 39 weeks.2. Previous section.3. Labor. DISCHARGE DIAGNOSES:1. Intrauterine at 39 weeks.2. Previous section.3. Labor. PROCEDURE PERFORMED: Repeat low cervical transverse section. HOSPITAL COURSE: The patient was admitted in labor, taken back for a repeat section. She delivered a 7-pound 12-ounce female infant, Apgars 8 and 8. No complications. Taken to recovery room, stable. COURSE: hemoglobin 10.9 on POD #1. Her blood pressurewas mildy elevated on postop #2. She was advised to stay in the hospital overnight to monitor her blood pressure. She decided to leave the hospitalAMA. Left AMA on postoperative day #2.5. . DISPOSITION: Left AMA. DIET: Regular diet as tolerated. ACTIVITY: Ad delmar as tolerated. MEDICATIONS: Please see hospital med reconciliation form. FOLLOWUP: The patient to follow up with her doctor. Dictated By: Sherman Collazo III, MD WT: DS:F.MUSA/HOLLY/NTSDD: 09/26/2020 14:55:08DT: 09/26/2020 18:10:05Conf#: [id number]/DID#: [id number] PATIENT NAME: MARTINE LENTZ Authenticated and Edited by Sherman Collazo MD On 09/29/20 4:16:09 PM at 1618 PATIENT NAME: MARTINE LENTZ lxwsapw4936-04-69U16:10:00F.MFK493 [id number] for patient jnztWNIMHAGVVTXJOC1188-69-71N26:18 :18 [facility] 2020-09-16 09:10:00 APwhglerebp85689471B wNhFYi5a0Ocmfp 4J6aa6WVcyypFsICc2otLawLsyfbs48Km+ 0u6bq0HPde1xGsZ7764-01-40X78:10:00 [facility] ([facility])OB Postpart Progr NoteREPORT#:[id number] REPORT STATUS: SignedDATE:09/16/20 TIME: 909 PATIENT: MARTINE LENTZ UNIT #: [id number]#: [id number] ROOM/BED: 2017-ADOB: [birth year] AGE: 40 SEX: F ATTEND: Sherman Collazo III [facility] AUTHOR: Jo Ann Martinez MD * ALL edits or amendments must be made on the electronic/computer document * Subjective SubjectiveAdmission EGA: Weeks: 39 Days: 1EGA at delivery (wks/days): 39 weeks (+)Status/day: post operative (day 2.5)Patient reports: Patient reports: Yes: normal lochia, tolerating po well, voiding well. No: pain management effective, vomiting, excessive bleeding. Comments:not nursing. states she has pain especially when moving around. She states she wishes she would have never said anythign about the morphine making her not breathe--it's not an allergy, "it's just they gave me too much." The patient also requests xanax 1 mg TID which she normally takes. Comments:I was asking the patient about going home, and the patient would like to go home. The tech came in and took her BP 152/-. I told the pt her BP is too high and that she will need to stay another day. The pt then became rather adamant about going home that her BP is high because she is in pain. I told her that either way it is best we check her BPs a bit longer in case she is developing preeclampsia. I tried to encourage the pt that her baby is here in the NICU, whynot stay. She states that going to the NICU makes her vey anxious. She says perhaps she has too much "empathy." The pt states she had PNC at [facility], but then stopped going. She doesn't like thembecause of the morphine issue. She states she was going to breast feed, but theyasked her to set an alarm every 2 hours, but her phone is . She can't call home because all calls are long distance, and her room phone won't allow it. When I offered to find her a certified hearing instrument dispenser for her phone, she said no it's off, and I have to pay the bill first. I asked about any h/o CPS--the pt said she one time had to take a drug test, but currently she does not think there's any problems. Objective Nursing Documentation ReviewNursing data:The data set between the solid lines has been imported from nursing documentation. Any exceptions have been noted below under Provider comments. Feeding preference: Provider comments on imported nursing data: [] GeneralVS:Vital Signs Date Temp Pulse Resp B/P B/P Mean Pulse Ox FiO2 09/15-09/16 98.0-99.1 69-85 18 135-145/65-78 Last Documented: Result Date Time B/P 09/16 Temp 98.5 09/16 423 Pulse 69 09/16 042 Resp 18 09/16 423 B/P Mean 94.0 09/14 0603 Pulse Ox 97 09/14 0603 Patient Weight Weight (lb): 200Weight (oz): Weight (kg): 90.718 Notes:WNWDFNAD, ambulating well Physical ExamLungs: unlabored breathingNeuro: Exam: alert, normal speech, normal gait, CNII-XII grossly intactAbdomen: soft, no abnormal tenderness, no guardingIncision site: dressing clean dry, dry, no drainageUterus: firm, non-tenderLower extremities: Edema: 1+ pitting Calf tenderness: negative Diagnosis, Assessment Plan Diagnosis, Assessment PlanProblem List/A P: 1. Status post delivery Assessment: doing well except BP elevated. Pt states due to pain and not gettingher medications. Plan: My plan is to watch her a little longer, preferably overnight,but the pt is unwilling to wait, eventhough her baby is here and she could spend time in the NICU. The pt wants to leave AMA.Consultation(s): Consultation performed: social work professor (per nurse, they saw her alread) at 0937 RPT #:[id number] OF REPORT PRProgress Owmu3752-33-50O88:10:00F.PSZF01226 115-0089AVAvailable for patient udrvWXHDLLICJILJJJ5493-70-50J28:38 :01 [facility] 2020-09-15 12:33:00 [id number]+ NqOrzisfYQv9Z9 fM3JAa+s4uLr2tXxvWP86Bj0oWzmtYtl/b lRHP2zouePmTqAa0177-82-47K58:33:00 [facility] ([facility])OB Postpart Progr NoteREPORT#:[id number] REPORT STATUS: SignedDATE:09/15/20 TIME: 1233 PATIENT: MARTINE LENTZ UNIT #: [id number]#: [id number] ROOM/BED: ADOB: [birth year] AGE: 40 SEX: F ATTEND: Sherman Collazo III [facility] AUTHOR: Nael Carter MD * ALL edits or amendments must be made on the electronic/computer document * Subjective SubjectiveStatus/Day: post operative (1)Patient reports: Patient reports: Yes no complaints (wants to go for a smoke), Yes normal lochia, Yes pain management effective, Yes tolerating po well, Yes tolerating ambulationNursing reports: Nursing reports: No complaints Objective Nursing Documentation ReviewNursing Data:The data set between the solid lines has been imported from nursing documentation. Any exceptions have been noted below under Provider comments. Feeding preference: Provider comments on imported nursing data: [] GeneralVS:Vital Signs: Date Time Temp Pulse Resp B/P B/P Pulse O2 O2 Flow FiO2 Mean Ox Delivery Rate 09/15 0815 97.9 74 18 120/74 09/15 0408 98.4 68 18 116/64 09/14 2349 98.4 70 18 117/69 09/14 1953 97.7 72 18 124/64 09/14 1250 98.4 71 20 138/75 Patient Weight Weight (lb): 200Weight (oz): Weight (kg): 90.718 Physical ExamNeuro: Exam: alert, oriented x3, normal speechAbdomen: soft, no abnormal tenderness, no guarding, no rebound tendernessIncision site: well approximated edges, selina intact, no drainageUterus: firm, involution appropriate, non-tenderFundus: below the umbilicusLochia: normalLower extremities: Edema: 1+ pitting ResultFindings/Data:Laboratory Tests: 09/15 0551 Hematology WBC (6.6 - 12.1 K/mm3) 17.6 H RBC (3.45 - 5.01 M/mm3) 3.04 L Hgb (10.7 - 13.9 g/dL) 9.5 L Hct (32.1 - 42.1 %) 30.6 L MCV (84.1 - 94.8 fL) 101 H MCH (27 - 35 pg) 31.3 MCHC (32.2 - 34.1 gm/dL) 31.0 L RDW (12.4 - 16.5 %) 14.6 Plt Count (133 - 385 K/mm3) 325 MPV (9.1 - 12.7 fl) 9.8 Neut % (Auto) (56.5 - 79.4 %) 75.4 Lymph % (Auto) (14.3 - 34.3 %) 19.0 Harvey % (Auto) (5.1 - 10.4 %) 3.7 L Eos % (Auto) (0.1 - 3.0 %) 0.9 Baso % (Auto) (0.1 - 1.0 %) 0.2 Neut # (Auto) (K/mm3) 13.3 Lymph # (Auto) (K/mm3) 3.3 Harvey # (Auto) (K/mm3) 0.7 Eos # (Auto) (K/mm3) 0.15 Baso # (Auto) (K/mm3) 0.0 Diagnosis, Assessment Plan Diagnosis, Assessment PlanFree text A P:40 yo s/p Repeat c/s POD #1Assessment: nml progressPlan: routine care, discharge tomorrowConsultation(s): Consultation performed: pharmacist repain choices for pain mediction plan to use Toradol IM q6hr and tramadol po q6hrs change to po toradol tomorrow possibledc home tomorrow at 1245 RPT #:[id number] OF REPORT PRProgress Qujr6804-43-62Y48:33:00F.DJSU73957 114-6802AVAvailable for patient ujktEWAJIKEDQMRHVZ2159-33-23C68:45 :26 [facility] 2020-09-14 13:34:00 BKhhxngqpgw06901637p 2XvlALi6YCjNxI /jYEgkdAVlXA9UscQxC7G15ZqRubD/yHt/ h5jjBGuvwTwVvW02950-57-40V56:34:00 [facility] ([facility])Clinical NoteREPORT#:[id number] REPORT STATUS: SignedDATE:09/14/20 TIME: 1334 PATIENT: MARTINE LENTZ UNIT #: [id number]#: [id number] ROOM/BED: ADOB: [birth year] AGE: 40 SEX: F ATTEND: Sherman Collazo III [facility] AUTHOR: Jo Ann Martinez MD * ALL edits or amendments must be made on the electronic/computer document * Clinical NoteNote:visited with patient. She is doing alright. She has some pain around abdomen, and some back pain--she thinks from the bed. She would like to restart her usual meds:gabapentin 600 mg p TID for anxietyZoloft 50 mg qhs for depressionRisperidone 2 mg qhs for schizoafective She is not planning to breastfeed. She declines breast binders.She is yet uncertain re circumcisionVital Signs: Date Time Temp Pulse Resp B/P B/P Pulse O2 O2 Flow FiO2 Mean Ox Delivery Rate 09/14 0800 97.7 80 20 137/68 09/14 0603 94.0 09/14 0603 98.1 75 20 134/73 97 09/14 0415 83.0 09/14 0415 79 16 118/58 95 09/14 0400 82.0 09/14 0400 77 17 116/58 97 09/14 0345 80.0 09/14 0345 90 24 114/58 96 09/14 0330 90.0 09/14 0330 79 32 125/67 96 09/14 0315 87.0 09/14 0315 78 31 124/63 98 09/14 0300 83.0 09/14 0300 75 19 121/65 96 09/14 0245 91.0 09/14 0245 76 20 127/66 97 09/14 0230 83.0 09/14 0230 76 18 116/63 97 09/14 0215 87.0 09/14 0215 85 20 118/67 95 09/14 0200 77.0 09/14 0200 88 110/56 96 09/14 0149 97.624 hours ending at 0700 09/14 0700 09/13 2300 09/13 1500 Intake Total 1475.00 Output Total 1100.00 Balance 375.00 Intake, Other 1475.00 Output, Other 1100.00 Patient 90.718 kg Weight 24 Hour I O Total 09/14 0700 Intake Total 1475.00 Output Total 1100.00 Balance 375.00 breasts non engorgedabd with binder, NTextr no calf TUrine clear-yellow in Tracy bag Laboratory Tests: 09/14 09/14 09/13 09/13 0642 0006 2339 2320Chemistry Sodium (135 - 145 mEq/L) 135 Potassium (3.5 - 5.0 mEq/L) 4.0 Chloride (100 - 115 mEq/L) 101 Carbon Dioxide (22 - 31 mEq/L) 26 Anion Gap (10 - 20) 12.50 BUN (7 - 18 mg/dL) 8 Creatinine (0.5 - 1.0 mg/dL) 0.7 Glomerular Filtr Rate (>60 ml/min) 94 Glucose (65 - 110 mg/dL) 83 Calcium (8.4 - 10.2 mg/dL) 8.3 L Total Bilirubin (0.2 - 1.0 mg/dL) 0.2 AST (15 - 37 units/L) 21 ALT (12 - 78 units/L) 23 Total Alk Phosphatase (46 - 116 units/L) 183 H Total Protein (6.3 - 8.2 gm/dL) 6.2 L Albumin (3.4 - 4.8 gm/dL) 2.6 LHematology WBC (6.6 - 12.1 K/mm3) 20.9 *H RBC (3.45 - 5.01 M/mm3) 3.61 Hgb (10.7 - 13.9 g/dL) 10.9 11.4 Hct (32.1 - 42.1 %) 34.6 34.7 MCV (84.1 - 94.8 fL) 96 H MCH (27 - 35 pg) 31.6 MCHC (32.2 - 34.1 gm/dL) 32.9 RDW (12.4 - 16.5 %) 14.5 Plt Count (133 - 385 K/mm3) 321 MPV (9.1 - 12.7 fl) 9.8 Neut % (Auto) (56.5 - 79.4 %) 80.9 H Lymph % (Auto) (14.3 - 34.3 %) 12.9 L Harvey % (Auto) (5.1 - 10.4 %) 4.4 L Eos % (Auto) (0.1 - 3.0 %) 1.0 Baso % (Auto) (0.1 - 1.0 %) 0.2 Neut # (Auto) (K/mm3) 16.9 Lymph # (Auto) (K/mm3) 2.7 Harvey # (Auto) (K/mm3) 0.9 Eos # (Auto) (K/mm3) 0.21 Baso # (Auto) (K/mm3) 0.1Serology Treponema pallidum Ab (NONREACTIVE) NONREACTIVE Hep Bs Antigen (NONREACTIVE) NONREACTIVE Hepatitis C Antibody (NONREACTIVE) NONREACTIVE Hep C Ab Signal/Cutoff (<0.80) 0.10 HIV 1 2 Antibody (NONREACTIVE) NONREACTIVE SARS-CoV-2 Ag (Rapid) (NEGATIVE) NEGATIVE A/P POD 0, doing wellwill restart medsnot breast feedinglabs reviewedwill check rubella status at 1338 RPT #:[id number] OF REPORT CLClinical qctl5493-59-28J45:34:00F.ISDM51178 [id number] for patient cvkgADONWJCCWUOFOY6221-41-88O92:38 :50 [facility] 01:44:00 AMbzkapmbmq55037151Q b8ITZ5rzEYvqeq eaBvJKlPN357MUhc3HgCADW7NuG4gN56Uu uXhlYA7XkA6jogw0025-01-63Y90:44:00 [facility] ([facility])Clinical NoteREPORT#:[id number] REPORT STATUS: SignedDATE:09/14/20 TIME: 0144 PATIENT: MARTINE LENTZ UNIT #: [id number]#: [id number] ROOM/BED: [facility]-ADOB: [birth year] AGE: 40 SEX: F ATTEND: Sherman Collazo III AUTHOR: Sherman Collazo III, MD * ALL edits or amendments must be made on the electronic/computer document * Clinical NoteNote:CARDIAC NURSE PRACTITIONER Hospitalist Zay To meet the standard of care, there was a need for a surgical attendant on this patient's c/section. There were no medical students, residents or any other surgical assistantsavailable to assist. I was present as the only surgical attendant for the entire procedurefrom start to finish. jr at 0148 RPT #:[id number] OF REPORT CLClinical viwc7098-04-20J67:44:00F.HBPL10866 [id number] for patient nrxqDLPSWTSKDFWGRI6007-90-20Q60:48 :43 [facility] 2020-09-14 00:19:00 SDabqhwmzzc08244974s HW9bvZiDyHbcKD p/mCjSd9Uf9LYDUmnlKiRkZqgaBIjTbQ2W BR4ig55V2H39m7I8002-28-75C50:19:00 [facility] ([facility])Full Op NoteREPORT#:[id number] REPORT STATUS: SignedDATE:09/14/20 TIME: 18 PATIENT: MARTINE LENTZ UNIT #: [id number]#: [id number] ROOM/BED: [facility]-ADOB: [birth year] AGE: 40 SEX: F ATTEND: Sherman Collazo III AUTHOR: Nael Carter MD * ALL edits or amendments must be made on the electronic/computer document * Operative ReportStart date: 09/14/20tart time: 104Pre-procedure diagnosis:39 weeksprevious c/s in laborPost-procedure diagnosis:39 weeksprevious c/s in laborProcedures performed:repeat sectionTechnique/Procedure:LUTPrim shane Surgeon: Lichat(s): santana collazoAnesthesia: spinal anestheticOperative findings:normal uterus, ovaries, tubesminimal adhesionsmale infantapgars 8/8TOB 0110Complications: noneEstimated blood loss in ml's: 700Specimens removed/altered: noneImplant(s): none Free Text Op NotesFree Text Op Notes:After appropriate preoperative hydration, and heart rate monitoring with reactive tracing noted, the patient is taken to the operating room and placed inthe sitting position. A spinal anesthetic is placed to the appropriate surgical level. The patient is placed in the supine position with a left lateral tilt. heart tones are again auscultated and found to be in the baseline range. AFoley catheter is placed under sterile conditions. The abdomen is then prepped and draped in the usual sterile fashion. The skin knife is used to make a Pfannenstiel skin incision 2 fingerbreadths above the pubic symphysis. Previous skin incision is removed.The subcutaneous tissue is divided the length of the incision with the deep knife. The fascia is scored with the Bovie transversely and then nicked transversely atthe midline to open both layers. The fascial dissection is extended bilaterally in a curvilinear fashion with the Bovie cautery. The superior fascia is grasped with Oschner clamps, and is dissected from the underlying rectus muscle with cautery and blunt dissection for adequate exposure. The rectus muscle is bluntly at the midline aponeurosis. The peritoneum is encountered, tented and entered with blunt finger dissection, then extended longitudinally with cautery dissection for adequate exposure. The lower uterine segment is found to be well developed. The vesicouterine peritoneum is incised transversely, and the bladder flap edge is identified. A scoring low cervical transverse uterine incision is made with the knife, and this incision is deepened at the midpoint to the level of the membranes. The incision is extended in a low cervical transverse fashion with blunt finger dissection in a cephalald/caudad manner, to avoid lateral uterine vessel laceration. The vertex is encountered in the occiput transverse position. The vertex is delivered through the uterine incision with mild fundal pressure by the assistant portfolio manager. The baby is delivered easilyThe cord is clamped and cut. The vigorous and viable has good cry, color, tone, grimace and heart rate shortly after delivery The baby is immediately shown to the parents and then handed off to the baby nurse in attendance for further evaluation and care.Cord blood is obtained. The placenta is then delivered spontaneously, and found to be intact with a 3 vessel cord. The uterus is exteriorized and wrapped in a moist lap sponge. The uterus/fallopian tubes and ovaries all appear normal. The uterine incision is repaired in 2 layers: the first layer is repaired with a running locked suture of 0-chromic and the second layer is imbricated. Hemostasis is good, and good tone has returned to the uterine fundus. The uterus is replaced into the normal pelvic position. The lateral colic gutters are well irrigated. The anterior parietal peritoneum is closed with a running suture of 2-0 Vicryl from apex to apex. The subfascial plane is irrigated and hemostasis is obtained with the cautery. The fascia is closed with a running suture of 0-PDS, beginning at either apex, and meeting in the midline. The subcutaneous tissue isirrigated, and this layer is closed with a subcutaneous suture of 2-0 Vicryl, followed by a subdermal suture of 2-0 Vicryl, to bring the skin edges closer together. The final skin layer is closely reapproximated with a subcuticular suture with the same suture The patient has tolerated the procedure well. Sponge and needle counts are reportedly correct x 2 at the close of the case. Instrument count is reportedly correct as well. The radiofrequency pad scan for retained sponges is negative. Mother is transferred to the PACU in good condition. at 0314 [facility] #:[id number] OF REPORT OPOperative srvxgt8686-46-66J00:19:00F.QLZG844 44137-8898UYXiqsnzuki for patient hwmlOYHLLCDLTQQJOQ4256-20-41L09:15 :06 [facility] 2020-09-14 00:01:00 VSzvkjbzrbw82683108t xwDt+AbZjspPjo 4se8P6pYCP4rzNmTyr99rsaldWkSL/k7Y+ yeazfRSdHfYx9LF2472-95-47A29:01:00 [facility] ([facility])OB Admission / H PREPORT#:[id number] REPORT STATUS: SignedDATE:09/14/20 TIME: 2023 PATIENT: MARTINE LENTZ UNIT #: [id number]#: [id number] [facility] [birth year] AGE: 40 SEX: F ATTEND: Sherman Collazo III [facility] AUTHOR: Nael Carter MD * ALL edits or amendments must be made on the electronic/computer document * OB HistoryChief complaint: uterine contractions (previous )HPI:40 yo at 39 weeks with regular uterine contractionsprevious c/s for herpes outbreak 2012currently with HSV outbreak [place] A[place]previous reaction to morphine "my heart stopped due to overdose"smoker in (1/2 ppd) transferring MD states cardiac evaluation was normal with EF of 60% history: : 3 Term: 2 : 0 Abortus: 0 Living children: 0 Complications (prev preg): noneCurrent : Admission EGA (weeks) 39 Admission EGA (days) 1Labs: Blood type: unknown Rh: unknown Rubella: unknownPast medical history: denies PMHPast surgical history: C-sectionSocial history: single, no alcohol use, no drug use, smoker (1/2ppd)Family historyFATHER, ; Cause: Gunshot injury.MOTHER Family History: Unremarkable AllergiesCoded Allergies:morphine (Severe, "HEART STOPPED" 12/22/17) Objective GeneralVS:Last Documented: Result Date Time B/P Mean 102.0 09/13 2330 B/P 148/71 09/13 2330 Pulse 90 09/13 2330 Vital Signs Date Temp Pulse Resp B/P B/P Mean Pulse Ox FiO2 09/13 90 148/71 102.0 Patient Weight Weight (lb): Weight (oz): Weight (kg): Physical ExamHEENT: normocephalic w/o injuryLungs: unlabored breathingNeuro: Exam: alert, oriented x3, normal speechAbdomen: gravid, soft, no abnormal tenderness, no rebound tendernessMusculoskeletal: normal inspectionUterine activity: Monitor: toco Frequency (description): regular Frequency (minutes): 1 Intensity: moderate Resting tone: relaxedMembranes: Membranes: IntactLower extremities: Edema: 1+ pittingBaby A: Baby A baseline: 155 bpm Baby A variability: moderate 6-25 bpm Baby A accelerations: 15 X 15 Baby A decelerations: none Baby A FHR category: category 1 ResultFindings/Data:Laboratory Tests: 09/13 09/13 2339 2320 Hematology WBC (6.6 - 12.1 K/mm3) 20.9 *H RBC (3.45 - 5.01 M/mm3) 3.61 Hgb (10.7 - 13.9 g/dL) 11.4 Hct (32.1 - 42.1 %) 34.7 MCV (84.1 - 94.8 fL) 96 H MCH (27 - 35 pg) 31.6 MCHC (32.2 - 34.1 gm/dL) 32.9 RDW (12.4 - 16.5 %) 14.5 Plt Count (133 - 385 K/mm3) 321 MPV (9.1 - 12.7 fl) 9.8 Neut % (Auto) (56.5 - 79.4 %) 80.9 H Lymph % (Auto) (14.3 - 34.3 %) 12.9 L Harvey % (Auto) (5.1 - 10.4 %) 4.4 L Eos % (Auto) (0.1 - 3.0 %) 1.0 Baso % (Auto) (0.1 - 1.0 %) 0.2 Neut # (Auto) (K/mm3) 16.9 Lymph # (Auto) (K/mm3) 2.7 Harvey # (Auto) (K/mm3) 0.9 Eos # (Auto) (K/mm3) 0.21 Baso # (Auto) (K/mm3) 0.1 Serology SARS-CoV-2 Ag (Rapid) (NEGATIVE) NEGATIVE Diagnosis, Assessment Plan Diagnosis, Assessment PlanAssessment/Impression: previous C/S, in labor (39 weeks), normal FHR pattern, reactive NSTPlan: admit to inpatient, , delivery at 0212 RPT #:[id number] OF REPORT HPHistory and physical svfjceqrjgy1700-91-38D78:01:00F.PD [id number] for patient wqkwRKPNDLQYDZVJHO8864-74-88K40:12 :23 [facility] 2018-01-24 21:35:56 3939774701kIF0T0zgeu 7pAAs4kgNjE9Y3 LN/nrQcw0Nyvqsgvtdi4N0t+0s1SYmWfJ8 J9BmdS8267-63-76J21:35:56 [facility] Discharge SummaryPATIENT NAME: MARTINE LENTZ PHYSICIAN: Liz Reid MD Admitted: MR NUMBER: [id number] DISCHARGED: 12/31/2017 02:01:00 REASON FOR ADMISSION:Martine Lentz is a 37-year-old female with a past psychiatric history, major depressive disorder, generalized anxiety disorder, and panic disorder, who presented to [facility] voluntarily for worsening depression and distressing auditory hallucinations in the context of medication compliance. On initial interview, the patient reported recurrenceof her depression starting 1 year ago after a cousin committed suicide. Herdepression worsened 2 months ago, where she also started developing auditory hallucinations of indistinguishable low whispers for the first time in her life. These last 2 weeks, the voices became very distressing and distinguishable as she is able to hear 2 different female voices making statements such as "I'm going to kill you", "your mom and kids are " and "I killed your brother." She was also delusional that writers from social media and [employer] put "black magic" on her a couple of months ago and this is the reason she started hearing voices. She endorsed depressed mood, anhedonia, worthlessness, guilt, and fatigue. However, she denied suicidal ideations. She was also positive for general anxiety disorder and panic disorder.FINAL DIAGNOSES:PRIMARY DIAGNOSES:Major depressive disorder, recurrent, severe with psychotic features.SECONDARY DIAGNOSES:Generalized anxiety disorder and panic disorder.PRINCIPAL PROCEDURE:Psychopharmacotherapy.SP ECIAL PROCEDURES:None.HOSPITAL COURSE:Martine Lentz is a 37-year-old female that was admitted to Dr. Zhang's teamfrom 12/30/2017 to 12/31/2017. The patient was on unit restrictions along with elopement and standard PICU precautions. She was started on Effexor XR 37.5 mg daily for her depressed mood, Risperdal 1 mg p.o. b.i.d. for her psychosis, trazodone 50 mg at bedtime p.r.n. for unspecified insomnia and Vistaril 50 mg q.6 hours p.r.n. for unspecified anxiety. She was also started on Klonopin 0.5 mg t.i.d. with plan to taper to prevent benzodiazepine withdrawal symptoms as she has been chronically taking Xanax 0.5 mg t.i.d. at home. During her stay, the patient would not allow us to call any collateral. She did attend daily assessments and group therapy. She continued to deny suicidal ideations throughout her stay. On day 2 of admission, she felt ready to go home because her distressing auditory hallucinations were gone. She felt much better now that she was not hearing any voices. However, the patient still had delusions that her voices were due to black magic from various writers on social media who she cannot [facility] Discharge SummaryPATIENT NAME: MARTINE LENTZ PHYSICIAN: Liz Reid MD Admitted: MR NUMBER: [id number] DISCHARGED: 12/31/2017 02:01:00 REASON FOR ADMISSION:Martine Lentz is a 37-year-old female with a past psychiatric history, major depressive disorder, generalized anxiety disorder, and panic disorder, who presented to [facility] voluntarily for worsening depression and distressing auditory hallucinations in the context of medication compliance. On initial interview, the patient reported recurrenceof her depression starting 1 year ago after a cousin committed suicide. Herdepression worsened 2 months ago, where she also started developing auditory hallucinations of indistinguishable low whispers for the first time in her life. These last 2 weeks, the voices became very distressing and distinguishable as she is able to hear 2 different female voices making statements such as "I'm going to kill you", "your mom and kids are " and "I killed your brother." She was also delusional that writers from [employer] and [employer] put "black magic" on her a couple of months ago and this is the reason she started hearing voices. She endorsed depressed mood, anhedonia, worthlessness, guilt, and fatigue. However, she denied suicidal ideations. She was also positive for general anxiety disorder and panic disorder.FINAL DIAGNOSES:PRIMARY DIAGNOSES:Major depressive disorder, recurrent, severe with psychotic features.SECONDARY DIAGNOSES:Generalized anxiety disorder and panic disorder.PRINCIPAL PROCEDURE:Psychopharmacotherapy.SP ECIAL PROCEDURES:None.HOSPITAL COURSE:Martine Lentz is a 37-year-old female that was admitted to Dr. Zhang's teamfrom 12/30/2017 to 12/31/2017. The patient was on unit restrictions along with elopement and standard PICU precautions. She was started on Effexor XR 37.5 mg daily for her depressed mood, Risperdal 1 mg p.o. b.i.d. for her psychosis, trazodone 50 mg at bedtime p.r.n. for unspecified insomnia and Vistaril 50 mg q.6 hours p.r.n. for unspecified anxiety. She was also started on Klonopin 0.5 mg t.i.d. with plan to taper to prevent benzodiazepine withdrawal symptoms as she has been chronically taking Xanax 0.5 mg t.i.d. at home. During her stay, the patient would not allow us to call any collateral. She did attend daily assessments and group therapy. She continued to deny suicidal ideations throughout her stay. On day 2 of admission, she felt ready to go home because her distressing auditory hallucinations were gone. She felt much better now that she was not hearing any voices. However, the patient still had delusions that her voices were due to black magic from various writers on social media who she cannot [facility] Discharge Summaryidentify. She was much more forthcoming on day 2 of admission as she revealed a long history of distressing trauma that she experienced, includingwitnessing her dad shoot himself when she was a child and multiple suicide attempts in the family. She displayed good judgment as she felt she really needed therapy and requested therapy on an outpatient basis. On day of discharge, the patient was deemed suitable for discharge based on continual absence of suicidal ideations and homicidal ideations. Her auditory hallucinations also resolved. She had no visual hallucinations. Her mood, affect, sleep, judgment and insight, improved. She described her mood as good and her affect was euthymic. She slept well and she planned to return to her home continue her psychotropic medications, followup with [facility] and start therapy.MENTAL STATUS EXAM ON DISCHARGE:GENERAL: Well-groomed, well-nourished female, with good eye contact, calm attitude. No psychomotor retardation or activation, tics, tardive dyskinesiaor tremor.SPEECH: Regular rate and rhythm.LUNGS: Good articulation.MOOD: "Good."AFFECT: Euthymic and congruent with mood.PERCEPTION: Denies any audiovisual hallucinations.THOUGHT PROCESS: Linear and goal directed.THOUGHT CONTENT: Denies suicidal ideations and homicidal ideations, positivefor delusions that writers on social media put "black magic" on her and this is a reason for her voices in the past.INSIGHT: Partial. The patient is aware of why here and has a partial understanding of her mental illness; however, she believes that her auditory hallucinations were secondary to black magic from social media.JUDGMENT: Fair. The patient was cooperative with the treatment plan and plans to follow up with Psychiatry. Continue her psychotropic medications and do therapy on an outpatient basis.COGNITION, ALERTNESS, AND ORIENTATION: Alert and oriented to person, place, time and circumstance. She will state full name, location, day and why she is in hospital.MEMORY: Grossly intact, recall recent and remote.INTELLECTUAL FUNCTIONING:Average (high school education).ATTENTION:Intact. Able to stay focused throughout the interview.GAIT:Normal.LABORATORY DATA: [facility] Discharge Summaryidentify. She was much more forthcoming on day 2 of admission as she revealed a long history of distressing trauma that she experienced, includingwitnessing her dad shoot himself when she was a child and multiple suicide attempts in the family. She displayed good judgment as she felt she really needed therapy and requested therapy on an outpatient basis. On day of discharge, the patient was deemed suitable for discharge based on continual absence of suicidal ideations and homicidal ideations. Her auditory hallucinations also resolved. She had no visual hallucinations. Her mood, affect, sleep, judgment and insight, improved. She described her mood as good and her affect was euthymic. She slept well and she planned to return to her home continue her psychotropic medications, followup with [facility] and start therapy.MENTAL STATUS EXAM ON DISCHARGE:GENERAL: Well-groomed, well-nourished female, with good eye contact, calm attitude. No psychomotor retardation or activation, tics, tardive dyskinesiaor tremor.SPEECH: Regular rate and rhythm.LUNGS: Good articulation.MOOD: "Good."AFFECT: Euthymic and congruent with mood.PERCEPTION: Denies any audiovisual hallucinations.THOUGHT PROCESS: Linear and goal directed.THOUGHT CONTENT: Denies suicidal ideations and homicidal ideations, positivefor delusions that writers on social media put "black magic" on her and this is a reason for her voices in the past.INSIGHT: Partial. The patient is aware of why here and has a partial understanding of her mental illness; however, she believes that her auditory hallucinations were secondary to black magic from social media.JUDGMENT: Fair. The patient was cooperative with the treatment plan and plans to follow up with Psychiatry. Continue her psychotropic medications and do therapy on an outpatient basis.COGNITION, ALERTNESS, AND ORIENTATION: Alert and oriented to person, place, time and circumstance. She will state full name, location, day and why she is in hospital.MEMORY: Grossly intact, recall recent and remote.INTELLECTUAL FUNCTIONING:Average (high school education).ATTENTION:Intact. Able to stay focused throughout the interview.GAIT:Normal.LABORATORY DATA: [facility] Discharge SummarySerum less than 1. Lipid profile, cholesterol 132, triglycerides 122, HDL 21, LDL 87. RPR nonreactive. TSH 2.42.DRUG REACTIONS:None.DISCHARGE MEDICATIONS:1. Effexor 37.5 mg p.o. daily.2. Risperdal 1 mg p.o. b.i.d.DISCHARGE INSTRUCTIONS:Provided to the patient.PHYSICAL ACTIVITY:As tolerated.DRIVING RESTRICTIONS:Do not drive after taking sedating medications such as Risperdal.FOLLOWUP:The patient has a followup appointment scheduled with Dr. Morocho on 01/07/2018 at 1 p.m. and has been given specific instructions on how to get to the appointment. She was also given resources for [facility] for therapy.DISPOSITION:Martine Lentz is currently stable and tolerating all her medications. We are discharging the patient to her home. The patient's prognosis is fair; however, if she is able to be compliant with her psychotropic medications andconsistent with her outpatient followup, she should do very well. She has been encouraged to abstain from illicit drug use and not to discontinue any of herpsychotropic medications without the guidance of her outpatient psychiatrist. The patient has also met with her professor of social work to obtain the appropriate followup paperwork depends upon through this plan has been reviewed with the patient with the understanding that compliance will be crucial to her recovery. She has been given the [facility] crisis hotline, which is and the information [facility] if she wishes to be in therapy.Liz Reid MD [facility] Discharge SummarySerum less than 1. Lipid profile, cholesterol 132, triglycerides 122, HDL 21, LDL 87. RPR nonreactive. TSH 2.42.DRUG REACTIONS:None.DISCHARGE MEDICATIONS:1. Effexor 37.5 mg p.o. daily.2. Risperdal 1 mg p.o. b.i.d.DISCHARGE INSTRUCTIONS:Provided to the patient.PHYSICAL ACTIVITY:As tolerated.DRIVING RESTRICTIONS:Do not drive after taking sedating medications such as Risperdal.FOLLOWUP:The patient has a followup appointment scheduled with Dr. Morocho on 01/07/2018 at 1 p.m. and has been given specific instructions on how to get to the appointment. She was also given resources for [facility] for therapy.DISPOSITION:Martine Lentz is currently stable and tolerating all her medications. We are discharging the patient to her home. The patient's prognosis is fair; however, if she is able to be compliant with her psychotropic medications andconsistent with her outpatient followup, she should do very well. She has been encouraged to abstain from illicit drug use and not to discontinue any of herpsychotropic medications without the guidance of her outpatient psychiatrist. The patient has also met with her professor of social work to obtain the appropriate followup paperwork depends upon through this plan has been reviewed with the patient with the understanding that compliance will be crucial to her recovery. She has been given the [facility] crisis hotline, which is and the information about [facility] if she wishes to be in therapy.Liz Reid MD [facility] Discharge SummaryNorma Zhang, [facility] 01/10/2018 21:30TD: 01/10/2018 23:37Job #: [id number]:Norma Zhang MD Electronically Authenticated and Edited by:Liz Reid MD On 01/24/2018 09:35 PM CDT [facility] Discharge SummaryNorma Zhang [facility] 01/10/2018 21:30TD: 01/10/2018 23:37Job #: [id number]:Norma Zhang MD Electronically Authenticated and Edited by:Liz Reid MD On 01/24/2018 09:35 PM CDTElectronically Authenticated by:Norma Zhang MD On 01/26/2018 01:31 PM CDTDSDischarge [id number] for patient [id number] 6 [facility] 2018 12:05:40 [id number]:05:40 [facility] Psych EvalPATIENT NAME: MARTINE LENTZ PHYSICIAN: Liz Reid MD Admitted: MR NUMBER: [id number] DISCHARGED: Psych EvalPatient Name: MARTINE LENTZ Date ofService: Date of : 1980Clinician: Liz Reid MD User Field 1: Rosalinda Visit: RITCHIE User Field 3: Carmina Zhang [facility]:DATE OF ADMISSION: 12/29/2017ATTENDING PHYSICIAN:Norma Zhang MDTIME OF PSYCHIATRIC EVALUATION:12/30/2017 at 8:30 a.m.INFORMANTS:The patient, [facility] medical record.CHIEF COMPLAINT:"I need help for these voices."HISTORY OF PRESENT ILLNESS:Martine Lentz is a 37-year-old female with a past psychiatric history of major depressive disorder, generalized anxiety disorder, panic disorder, and opioid use disorder, who came into [facility] voluntarily for worsening depression and distressing auditory hallucinations. She has had one psychiatric hospitalization here and was discharged from [facility] in March 2013. She reports that she was doing okay and off all her medications until 1 year ago when callie committed suicide. Since then she started feeling very depressed. [place] depression continued, she started hearing voices of "whispers" that were indistinguishable a couple months ago; however, these voices became increasingly severe and these past couple of weeks, the voices became distinguishable. She could hear 2 female voices that sound like they are coming from outside her head that makes statements like "I am going to kill you and your family", "your mom and dad are ", "I killed your brother". These voices were so distressing that she quit her job at [employer]. She has also been having delusions for these past 2 months that writers on social media and [employer], who she cannot identify have "put black magic" on her and she believes this is the reason she is hearing voices. She denies ever hearing auditory hallucinations prior to these past 2 months and she denies delusions prior to these past 2 months. She states that these delusions and voices started in the context of being off drugs. She does state that she took a couple of puffs of marijuana 2 days prior to admission to try to get rid of these voices, but it was not effective. Prior to this, she last used marijuana over a year ago. She alsoendorses doing meth 2 weeks ago; however, prior to that, she last used meth over a year ago. Her urine drug screen was positive for benzodiazepine and THC only. She states she sought help for this depression and these voices 2 [facility] Psych EvalPATIENT NAME: MARTINE LENTZ PHYSICIAN: Liz Ried MD Admitted: MR NUMBER: [id number] DISCHARGED: Psych EvalPatient Name: MARTINE LENTZ Date ofService: Date of : 1980Clinician: Liz Reid MD User Field 1: [facility]ounter [facility] User Field 3[facility]:DATE OF ADMISSION: 12/29/2017ATTENDING PHYSICIAN:Norma Zhang MDTIME OF PSYCHIATRIC EVALUATION:12/30/2017 at 8:30 a.m.INFORMANTS:The patient, [facility] medical record.CHIEF COMPLAINT:"I need help for these voices."HISTORY OF PRESENT ILLNESS:Martine Lentz is a 37-year-old female with a past psychiatric history of major depressive disorder, generalized anxiety disorder, panic disorder, and opioid use disorder, who came into [facility] voluntarily for worsening depression and distressing auditory hallucinations. She has had one psychiatric hospitalization here and was discharged from [facility] in March 2013. She reports that she was doing okay and off all her medications until 1 year ago when callie committed suicide. Since then she started feeling very depressed. [place] depression continued, she started hearing voices of "whispers" that were indistinguishable a couple months ago; however, these voices became increasingly severe and these past couple of weeks, the voices became distinguishable. She could hear 2 female voices that sound like they are coming from outside her head that makes statements like "I am going to kill you and your family", "your mom and dad are ", "I killed your brother". These voices were so distressing that she quit her job at [employer]. She has also been having delusions for these past 2 months that writers on social media and [employer], who she cannot identify have "put black magic" on her and she believes this is the reason she is hearing voices. She denies ever hearing auditory hallucinations prior to these past 2 months and she denies delusions prior to these past 2 months. She states that these delusions and voices started in the context of being off drugs. She does state that she took a couple of puffs of marijuana 2 days prior to admission to try to get rid of these voices, but it was not effective. Prior to this, she last used marijuana over a year ago. She alsoendorses doing meth 2 weeks ago; however, prior to that, she last used meth over a year ago. Her urine drug screen was positive for benzodiazepine and THC only. She states she sought help for this depression and these voices 2 Patient Name: MARTINE LENTZ ago at a clinic. She states she was prescribed Zoloft, Vistaril and Xanax without relief. She currently endorses depressed mood, anhedonia, worthlessness, guilt, and fatigue for the past several months. She denies suicidal ideations. She denies visual hallucinations. She denies a history of manic episodes as she denies ever going several days straight without sleeping and feeling energetic, going several days straight where she is feeling euphoric with increased energy, impulsivity, racing thoughts, grandiosity or several days straight going increased irritability, energy, racing thoughts, rapid speech, and impulsivity. She does endorse distressinganxiety about everything, but would not elaborate further. She also endorsesa long history of panic attacks described as an acute onset of chest pain, shortness of breath, numbness in the hands, sweating, nausea, vomiting, and decreased hearing, lasting several minutes that come out of the blue for the past several years, occurring a few times a week with persistent worry about reoccurring panic attacks. She is being treated for the panic attacks with Xanax 0.5 mg t.i.d. that she gets from her physician. She endorses a historyof "a lot of tragedy", but would not elaborate on the trauma that she has experienced.PSYCHIATRIC REVIEW OF SYSTEMS:Positive for symptoms of depression (see HPI), positive for auditory hallucinations (see HPI), positive for bizarre delusions (see HPI), negative for visual hallucinations, negative for current or past episodes of arnaud, positive for generalized anxiety, positive for panic attacks (see HPI), negative for suicidal ideations, and negative for homicidal ideations.PAST PSYCHIATRIC HISTORY:The patient has had one hospitalization at [facility]. She was discharged from [facility] in March 2013. At that time, she was diagnosed with major depressivedisorder, panic disorder, and generalized anxiety disorder. She has tried Zoloft, Prozac, BuSpar, gabapentin, Thorazine, and Cymbalta, all which were ineffective, according to her. She is requesting specifically for Klonopin or Xanax for her anxiety and panic attacks. She saw a physician 2 weeks ago for her current depression and auditory hallucinations, who prescribed her Zoloft and Vistaril, which she reports no relief with. She denies a history of suicide attempts or self-injurious behavior.SUBSTANCE USE:The patient took a couple of puffs of marijuana 2 days ago to try to get the voices away. Prior to that, she has not used marijuana in over a year. She also did meth once two weeks ago by smoking it; however, prior to that, she states she last used it over a year ago. She denies all other drug use, including alcohol.PAST MEDICAL HISTORY:Denies. Patient Name: MARTINE LENTZ ago at a clinic. She states she was prescribed Zoloft, Vistaril and Xanax without relief. She currently endorses depressed mood, anhedonia, worthlessness, guilt, and fatigue for the past several months. She denies suicidal ideations. She denies visual hallucinations. She denies a history of manic episodes as she denies ever going several days straight without sleeping and feeling energetic, going several days straight where she is feeling euphoric with increased energy, impulsivity, racing thoughts, grandiosity or several days straight going increased irritability, energy, racing thoughts, rapid speech, and impulsivity. She does endorse distressinganxiety about everything, but would not elaborate further. She also endorsesa long history of panic attacks described as an acute onset of chest pain, shortness of breath, numbness in the hands, sweating, nausea, vomiting, and decreased hearing, lasting several minutes that come out of the blue for the past several years, occurring a few times a week with persistent worry about reoccurring panic attacks. She is being treated for the panic attacks with Xanax 0.5 mg t.i.d. that she gets from her physician. She endorses a historyof "a lot of tragedy", but would not elaborate on the trauma that she has experienced.PSYCHIATRIC REVIEW OF SYSTEMS:Positive for symptoms of depression (see HPI), positive for auditory hallucinations (see HPI), positive for bizarre delusions (see HPI), negative for visual hallucinations, negative for current or past episodes of arnaud, positive for generalized anxiety, positive for panic attacks (see HPI), negative for suicidal ideations, and negative for homicidal ideations.PAST PSYCHIATRIC HISTORY:The patient has had one hospitalization at [facility]. She was discharged from [facility] in March 2013. At that time, she was diagnosed with major depressivedisorder, panic disorder, and generalized anxiety disorder. She has tried Zoloft, Prozac, BuSpar, gabapentin, Thorazine, and Cymbalta, all which were ineffective, according to her. She is requesting specifically for Klonopin or Xanax for her anxiety and panic attacks. She saw a physician 2 weeks ago for her current depression and auditory hallucinations, who prescribed her Zoloft and Vistaril, which she reports no relief with. She denies a history of suicide attempts or self-injurious behavior.SUBSTANCE USE:The patient took a couple of puffs of marijuana 2 days ago to try to get the voices away. Prior to that, she has not used marijuana in over a year. She also did meth once two weeks ago by smoking it; however, prior to that, she states she last used it over a year ago. She denies all other drug use, including alcohol.PAST MEDICAL HISTORY:Denies. Patient Name: MARTINE LENTZ MEDICATIONS: 1. Zoloft. 2. Vistaril. 3. Xanax 0.5 mg t.i.d.ALLERGIES:NO KNOWN ALLERGIES.PAST SURGICAL HISTORY:.SOCIAL HISTORY:The patient currently lives with her 8-year-old daughter. She is not . She also has a 5-year-old son, who lives with her mom. She has good social support from her mom. She was last employed at the [employer], but stopped working because of the voices. She is not on disability. She has a 10th grade education. When asked about her legal history she states "I do not know". According to prior records, she was on probation in 2013 for evading arrest due to being high off her prescription medication. Also from past medical records, she states that she has watched her father shoot himself when she was in first grade. Her brother was in a car wreck and two of his friends , which were very anxiety provoking for her.FAMILY HISTORY:The patient's father shot himself when the patient was in first grade.REVIEW OF SYSTEMS:GENERAL: Denied.HEENT: Denied.CARDIOVASCULAR: Denied.RESPIRATORY: Denied.GASTROINTESTINAL: Denied.GENITOURINARY: Denied.MUSCULOSKELETAL: Denied.ENDOCRINE: Denied.NEUROLOGIC: Denied.SKIN: Denied.PHYSICAL EXAMINATION:VITAL SIGNS: Temperature 97.4, pulse 77, respiration 18, and blood pressure 128/60.MENTAL STATUS EXAM:GENERAL: Disheveled, overweight, female, who laid on the bed throughout the entire interview, making poor eye contact, drowsy, and frequently falling asleep throughout the interview. She exhibited no Patient Name: MARTINE LENTZ MEDICATIONS: 1. Zoloft. 2. Vistaril. 3. Xanax 0.5 mg t.i.d.ALLERGIES:NO KNOWN ALLERGIES.PAST SURGICAL HISTORY:.SOCIAL HISTORY:The patient currently lives with her 8-year-old daughter. She is not . She also has a 5-year-old son, who lives with her mom. She has good social support from her mom. She was last employed at the [employer], but stopped working because of the voices. She is not on disability. She has a 10th grade education. When asked about her legal history she states "I do not know". According to prior records, she was on probation in 2013 for evading arrest due to being high off her prescription medication. Also from past medical records, she states that she has watched her father shoot himself when she was in first grade. Her brother was in a car wreck and two of his friends , which were very anxiety provoking for her.FAMILY HISTORY:The patient's father shot himself when the patient was in first grade.REVIEW OF SYSTEMS:GENERAL: Denied.HEENT: Denied.CARDIOVASCULAR: Denied.RESPIRATORY: Denied.GASTROINTESTINAL: Denied.GENITOURINARY: Denied.MUSCULOSKELETAL: Denied.ENDOCRINE: Denied.NEUROLOGIC: Denied.SKIN: Denied.PHYSICAL EXAMINATION:VITAL SIGNS: Temperature 97.4, pulse 77, respiration 18, and blood pressure 128/60.MENTAL STATUS EXAM:GENERAL: Disheveled, overweight, female, who laid on the bed throughout the entire interview, making poor eye contact, drowsy, and frequently falling asleep throughout the interview. She exhibited no Patient Name: MARTINE LENTZ retardation, activation, tics, tardive dyskinesia or tremor.SPEECH: Regular rate, rhythm, and volume with good articulation.MOOD: "Very tired."AFFECT: Congruent and constricted.PERCEPTION: Positive for audio hallucinations. Negative for visual hallucinations.THOUGHT PROCESS: Linear and goal directed.THOUGHT CONTENT: Positive for delusions. Denies suicidal ideations, homicidal ideations or paranoia.INSIGHT: Fair. She is aware of why she is here, has an understanding of hermental illness and need for treatment. However, she has delusions that people put black magic on her and this is the reason for her voices.JUDGMENT: Fair. She is cooperative with the treatment plan.COGNITION: ALERTNESS AND ORIENTATION:; alert and oriented to person, place, time and circumstance, able to state full name, location, date, and why at hospital.MEMORY: Recall intact, able to name three words immediately and at 3 minutes. Recent memory intact, able to recall what happened yesterday. Remote memory intact and named the last 3 presidents.INTELLECTUAL FUNCTIONING: Average "high school education".ATTENTION: Intact. Able to spell "world" backwards.ABSTRACTION: Impaired.FUND OF KNOWLEDGE: Appropriate for education. Able to name 5 cities.GAIT: Normal.LABORATORY DATA:Serum alcohol less than 0.01. Serum beta hCG less than 1. CBC: WBC 12, RBC4.09, hemoglobin 12.4, and hematocrit 38.3. CMP: Sodium 139, potassium 3.4,chloride 101, creatinine 0.7, BUN 6, AST 16, and ALT 11. Urine drug screen positive for benzodiazepine and THC. Lipid profile: Cholesterol 132, triglycerides 122, HDL 21, and LDL 87. RPR nonreactive. TSH 2.42. Urinalysis positive for blood, leukocyte esterase, white blood cell and rbc.ASSESSMENT:Martine Lentz is a 37-year-old female with a past psychiatric history of major depressive disorder, generalized anxiety disorder, and panic disorder, who presented to [facility] voluntarily for worsening depression and distressing auditory hallucinations. On initial interview, the patient reported recurrence of her depression starting 1 year ago after her cousin committed suicide. Since then, her depression worsened. Two months ago, she started developing auditory hallucinations of indistinguishable whispers; however, these last 2 weeks, they have been very distressing as she is able to hear 2 different female voice making statementssuch as "I am going to kill you", "your mom and kids are ", "I killed your brother". She also has a delusion that writers from [employer] and [employer] put "black magic" on her a couple of months ago, and this is why shestarted hearing voices. She denies a history of voices or delusions outside Patient Name: MARTINE LENTZ retardation, activation, tics, tardive dyskinesia or tremor.SPEECH: Regular rate, rhythm, and volume with good articulation.MOOD: "Very tired."AFFECT: Congruent and constricted.PERCEPTION: Positive for audio hallucinations. Negative for visual hallucinations.THOUGHT PROCESS: Linear and goal directed.THOUGHT CONTENT: Positive for delusions. Denies suicidal ideations, homicidal ideations or paranoia.INSIGHT: Fair. She is aware of why she is here, has an understanding of hermental illness and need for treatment. However, she has delusions that people put black magic on her and this is the reason for her voices.JUDGMENT: Fair. She is cooperative with the treatment plan.COGNITION: ALERTNESS AND ORIENTATION:; alert and oriented to person, place, time and circumstance, able to state full name, location, date, and why at hospital.MEMORY: Recall intact, able to name three words immediately and at 3 minutes. Recent memory intact, able to recall what happened yesterday. Remote memory intact and named the last 3 presidents.INTELLECTUAL FUNCTIONING: Average "high school education".ATTENTION: Intact. Able to spell "world" backwards.ABSTRACTION: Impaired.FUND OF KNOWLEDGE: Appropriate for education. Able to name 5 cities.GAIT: Normal.LABORATORY DATA:Serum alcohol less than 0.01. Serum beta hCG less than 1. CBC: WBC 12, RBC4.09, hemoglobin 12.4, and hematocrit 38.3. CMP: Sodium 139, potassium 3.4,chloride 101, creatinine 0.7, BUN 6, AST 16, and ALT 11. Urine drug screen positive for benzodiazepine and THC. Lipid profile: Cholesterol 132, triglycerides 122, HDL 21, and LDL 87. RPR nonreactive. TSH 2.42. Urinalysis positive for blood, leukocyte esterase, white blood cell and rbc.ASSESSMENT:Martine Lentz is a 37-year-old female with a past psychiatric history of major depressive disorder, generalized anxiety disorder, and panic disorder, who presented to [facility] voluntarily for worsening depression and distressing auditory hallucinations. On initial interview, the patient reported recurrence of her depression starting 1 year ago after her cousin committed suicide. Since then, her depression worsened. Two months ago, she started developing auditory hallucinations of indistinguishable whispers; however, these last 2 weeks, they have been very distressing as she is able to hear 2 different female voice making statementssuch as "I am going to kill you", "your mom and kids are ", "I killed your brother". She also has a delusion that writers from [employer] and [employer] put "black magic" on her a couple of months ago, and this is why shestarted hearing voices. She denies a history of voices or delusions outside Patient Name: MARTINE LENTZ these last few months. These voices started in the context of no drug use. She was also positive for general anxiety disorder and panic disorder. PRIMARY DIAGNOSES:Major depressive disorder, recurrent, severe with psychotic features.SECONDARY DIAGNOSES:Generalized anxiety disorder and panic disorder.PLAN:Martine Lentz will be admitted to Dr. Zhang's service on the [facility] Inpatient Unit and placed on suicide, elopement, and standard PICU precautions and unit restrictions. She will be started on Effexor XR 37.5 mgp.o. daily for her depression, Risperdal 1 mg p.o. b.i.d. for her psychosis, trazodone 50 mg at bedtime p.r.n. for unspecified insomnia and Vistaril 50 mgq.6 hours p.r.n. for unspecified anxiety. She will also be started on Klonopin 0.5 mg t.i.d. with plan to taper to prevent benzodiazepine withdrawal symptoms as she has been chronically taking Xanax 0.5 mg t.i.d. athome. She was offered nicotine patch and gum for nicotine replacement. Internal Medicine has been consulted for current medical needs. She will be monitored daily while in the unit. We will plan to discharge the patient to her home. She has been encouraged to attend all group therapy sessions, participate in her treatment and to bring any concerns to the attention of the treatment team.Franklin Emerson, MDDate Dictated: 12/30/2017Date 12/30/2017Transcribed:CL/PAD/RAN/D EEJob #: [id number]:Norma Zhang MD Electronically Authenticated and Edited by:Liz Reid MD On 2018 12:05 PM CDTPatient Name: MARTINE LENTZ these last few months. These voices started in the context of no drug use. She was also positive for general anxiety disorder and panic disorder. PRIMARY DIAGNOSES:Major depressive disorder, recurrent, severe with psychotic features.SECONDARY DIAGNOSES:Generalized anxiety disorder and panic disorder.PLAN:Martine Lentz will be admitted to Dr. Zhang's service on the [facility] Inpatient Unit and placed on suicide, elopement, and standard PICU precautions and unit restrictions. She will be started on Effexor XR 37.5 mgp.o. daily for her depression, Risperdal 1 mg p.o. b.i.d. for her psychosis, trazodone 50 mg at bedtime p.r.n. for unspecified insomnia and Vistaril 50 mgq.6 hours p.r.n. for unspecified anxiety. She will also be started on Klonopin 0.5 mg t.i.d. with plan to taper to prevent benzodiazepine withdrawal symptoms as she has been chronically taking Xanax 0.5 mg t.i.d. athome. She was offered nicotine patch and gum for nicotine replacement. Internal Medicine has been consulted for current medical needs. She will be monitored daily while in the unit. We will plan to discharge the patient to her home. She has been encouraged to attend all group therapy sessions, participate in her treatment and to bring any concerns to the attention of the treatment team.Franklin Emerson, MDDate Dictated: 12/30/2017Date 12/30/2017Transcribed:HENOK/PAD/RAN/D EEJob #: [id number]:Norma Zhang MD Electronically Authenticated and Edited by:Liz Reid MD On 2018 12:05 PM CDTElectronically Authenticated by:Norma Zhang MD On 02/09/2018 04:15 PM [id number] for patient [id number] 0 [facility]
[2024-01-08 12:54] LABS: Specific Gravity 1.017 (1.005-1.030)
[2024-01-08 12:57] LABS: Basophils % 0.4 % (0-1.3); Hematocrit 46.1 % (36.0-45.0); Lymphocytes % 14.6 % (15.3-44.8); MCV 91.8 fL (80-100); MPV 7.5 fL (7.6-11.3); Platelets 480 thou/uL (152-406); RBC Red Blood Cell Count 5.02 M/uL (3.86-4.86)
[2024-01-08 13:03] LABS: Protime INR 1.04
[2024-01-08 13:14] LABS: Specific Gravity 1.016 (1.005-1.030); Urine Bacteria <20 /HPF (<20); Urine Bilirubin NEGATIVE (Negative); Urine Blood 3+ (OVER) (Negative); Urine Clarity Extremely Turbid (Clear); Urine Color Light-Orange (Yellow); Urine Glucose NEGATIVE (Negative); Urine Mucus Slight /HPF (None Seen); Urine Protein 1+ (Negative); Urine RBC >50 /HPF (None Seen); Urine Urobilinogen Normal (Normal); Urine pH 7.5 (5.0-7.0)
[2024-01-08 13:35] LABS: Barbiturates NEGATIVE (NEGATIVE); Benzodiazepines POSITIVE (NEGATIVE); Cocaine NEGATIVE (NEGATIVE); METHAMPHETAM POSITIVE (NEGATIVE); Methadone NEGATIVE (NEGATIVE); Opiates NEGATIVE (NEGATIVE); Phencyclidine NEGATIVE (NEGATIVE); THC Cannibis POSITIVE (NEGATIVE)
[2024-01-08 13:39] LABS: ALT/SGPT 26 U/L (13-56); AST/SGOT 20 U/L (15-37); Alkaline Phosphatase 135 U/L (45-117); Anion Gap 10.1 mEq/L (5.0-15.0); BUN Blood Urea Nitrogen 6 mg/dL (7-18); Bicarbonate 24 mEq/L (21-32); Bilirubin Direct 0.1 mg/dL (0-0.2); Bilirubin Indirect, Calculated 0.3 mg/dL (0.2-0.8); Bilirubin Total 0.4 mg/dL (0.2-1.0); Glomerular Filtration Rate 76 ml/min (=/>90); Glucose Level 162 mg/dL (74-106); Potassium 3.1 mEq/L (3.5-5.1); Protein, Total 8.6 g/dL (6.4-8.2); Sodium Level 133 mEq/L (136-145)
[2024-01-08 13:40] LABS: Albumin 4.3 g/dL (3.4-5.0)
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
--- NOTE | 2024-01-08 14:53 | EDPHYS ---
Physician Documentation [facility] Name: Miriam Fried Age: 43 yrs Sex: Female : 1980 Arrival Date: 01/08/2024 Time: 12:21 Bed 15 Private MD: ED Physician Myles Jalloh HPI: 01/07 14:38 This 43 yrs old Female presents to ER via EMS with complaints of Anxiety. deisy 14:38 The patient presents to the emergency department with anxiety, depression, psychosis, a deisy history of substance abuse. Onset: The symptoms/episode began/occurred just prior to arrival. Past psychiatric history: Prior diagnosis: depression, ANXIETY, PTSD. Associated signs and symptoms: Pertinent positives; anxiety. Severity of symptoms: At their worst the symptoms were mild moderate in the emergency department the symptoms have improved moderately. The patient has experienced similar episodes in the past, a few times. Historical: - Allergies: 12:31 Morphine; kc6 12:31 Bactrim DS; kc6 12:31 PENICILLINS; kc6 - PMHx: 12:31 ADD/ADHD; Anxiety; Depression; depressive disorder; Heart Arrythmia; PTSD; kc6 - PSHx: 12:31 section; kc6 - Immunization history:: Adult Immunizations up to date. - Social history:: Smoking status: Patient reports the use of cigarette tobacco products, smokes one pack cigarettes per day. ROS: 14:40 Constitutional: Negative for fever, chills, and weight loss, Eyes: Negative for injury, deisy pain, redness, and discharge, ENT: Negative for injury, pain, and discharge, Neck: Negative for injury, pain, and swelling, Cardiovascular: Negative for chest pain, palpitations, and edema, Respiratory: Negative for shortness of breath, cough, wheezing, and pleuritic chest pain, Abdomen/GI: Negative for abdominal pain, nausea, vomiting, diarrhea, and constipation, Back: Negative for injury and pain, : Negative for injury, bleeding, discharge, and swelling, MS/Extremity: Negative for injury and deformity, Skin: Negative for injury, rash, and discoloration, Neuro: Negative for headache, weakness, numbness, tingling, and seizure, Allergy/Immunology: Negative for hives, rash, and allergies, Endocrine: Negative for neck swelling, polydipsia, polyuria, polyphagia, and marked weight changes, Hematologic/Lymphatic: Negative for swollen nodes, abnormal bleeding, and unusual bruising, 14:40 Psych: Positive for anxiety, depression, Exam: 14:40 Constitutional: This is a well developed, well nourished patient who is awake, alert, deisy and in no acute distress. Head/Face: Normocephalic, atraumatic. Eyes: Pupils equal round and reactive to light, extra-ocular motions intact. Lids and lashes normal. Conjunctiva and sclera are non-icteric and not injected. Cornea within normal limits. Periorbital areas with no swelling, redness, or edema. ENT: Nares patent. No nasal discharge, no septal abnormalities noted. Tympanic membranes are normal and external auditory canals are clear. Oropharynx with no redness, swelling, or masses, exudates, or evidence of obstruction, uvula midline. Mucous membranes moist. Neck: Trachea midline, no thyromegaly or masses palpated, and no cervical lymphadenopathy. Supple, full range of motion without nuchal rigidity, or vertebral point tenderness. No Meningismus. Chest/axilla: Normal chest wall appearance and motion. Nontender with no deformity. No lesions are appreciated. Cardiovascular: Regular rate and rhythm with a normal S1 and S2. No gallops, murmurs, or rubs. Normal PMI, no JVD. No pulse deficits. Respiratory: Lungs have equal breath sounds bilaterally, clear to auscultation and percussion. No rales, rhonchi or wheezes noted. No increased work of breathing, no retractions or nasal flaring. Abdomen/GI: Soft, non-tender, with normal bowel sounds. No distension or tympany. No guarding or rebound. No evidence of tenderness throughout. Back: No spinal tenderness. No costovertebral tenderness. Full range of motion. Female : Normal external genitalia. Skin: Warm, dry with normal turgor. Normal color with no rashes, no lesions, and no evidence of cellulitis. MS/ Extremity: Pulses equal, no cyanosis. Neurovascular intact. Full, normal range of motion. Neuro: Awake and alert, GCS 15, oriented to person, place, time, and situation. Cranial nerves II-XII grossly intact. Motor strength 5/5 in all extremities. Sensory grossly intact. Cerebellar exam normal. Normal gait. Psych: Awake, alert, with orientation to person, place and time. Behavior, mood, and affect are within normal limits. Vital Signs: 12:29 BP 156 / 90; Pulse 125; Resp 20 S; Temp 98.3(O); Pulse Ox 100% on R/A; Weight 77.11 kg kc6 (R); Height 5 ft. 4 in. (R); 13:28 BP 134 / 77; Pulse 123; Resp 18 S; Pulse Ox 98% on R/A; kc6 12:29 Body Mass Index 29.18 (77.11 kg, 162.56 cm) [facility]DM: 12:23 Patient medically screened. deisy 12:24 Patient medically screened. deisy 14:40 Differential diagnosis: drug withdrawal. acute psychotic break, depression, psychosis deisy secondary to non-compliance. Differential Diagnosis altered mental status. Data reviewed: vital signs, nurses notes, EMS record, lab test result(s), EKG, radiologic studies. Consideration of Admission/Observation Escalation of care including admission/observation considered. I considered the following discharge prescriptions or medication management in the emergency department Medications were administered in the Emergency Department. See MAR. Independent interpretation of the following test(s) in the Emergency Department EKG: See my EKG interpretation above. Test considered but Not performed: X-ray: NO CHEST X RAY. Care significantly affected by the following chronic conditions: Obesity, PTSD, ANXIETY, DEPRESSION, ADD/ADHD. 14:50 Counseling: I had a detailed discussion with the patient and/or guardian regarding the deisy historical points, exam findings, and any diagnostic results supporting the discharge/admit diagnosis, lab results, the need for outpatient follow up, for definitive care, a family practitioner, a psychiatrist. ED course: NO HOMICIDAL , NOT SUICIDAL. 01/07 12:25 Order name: Acetaminophen; Complete Time: 14:23 deisy 01/07 12:25 Order name: Basic Metabolic Panel; Complete Time: 14:23 deisy 01/07 12:25 Order name: CBC with Diff; Complete Time: 14:23 deisy 01/07 12:25 Order name: ETOH Level; Complete Time: 14:23 deisy 01/07 12:25 Order name: Hepatic Function; Complete Time: 14:23 deisy 01/07 12:25 Order name: PT-INR; Complete Time: 14:23 deisy 01/07 12:25 Order name: Test, Urine; Complete Time: 14:23 deisy 01/07 12:25 Order name: Ptt, Activated; Complete Time: 14:23 [facility] 01/07 12:25 Order name: Salicylate; Complete Time: 14:23 [facility] 01/07 12:25 Order name: Urinalysis w/ reflexes; Complete Time: 14:23 [facility] 01/07 12:25 Order name: Urine Drug Screen; Complete Time: 14:23 [facility] 01/07 14:24 Order name: Urine Culture [facility] 01/07 12:25 Order name: EKG; Complete Time: 12:26 [facility] 01/07 12:25 Order name: EKG - Nurse/Tech; Complete Time: 12:57 [facility] 01/07 12:25 Order name: IV Saline Lock; Complete Time: 12:46 [facility] 01/07 12:25 Order name: Labs collected and sent; Complete Time: 12:46 [facility] 01/07 12:25 Order name: Suicide Screening ([place]); Complete Time: 12:33 [facility] Administered Medications: 12:46 Drug: NS 0.9% IV 1000 ml IV at 1 bolus Per protocol; 1000 mL bolus Route: IV; Rate: 1 kd3 bolus; Site: right antecubital; 13:01 Drug: Ativan IVP 1 mg IVP once Route: IVP; Site: right antecubital; kd3 13:13 Drug: Ativan IVP 1 mg IVP once Route: IVP; Site: right antecubital; kd3 14:32 CANCELLED (Duplicate Order): [email or web address] grams IV at per protocol once; Given slow IV deisy push per pharmacy instructions 14:39 Drug: Potassium PO Effervescent Tablet 50 mEq PO once; dissolve in 4 ounces of water or kd3 juice Route: PO; 14:39 Drug: Ciprofloxacin PO 500 mg PO once Route: PO; kd3 Disposition Summary: 01/08/24 14:52 Discharge Ordered Notes: Location: Home deisy Problem: new deisy Symptoms: have improved deisy Condition: Stable deisy Diagnosis - UTI/ Urinary tract infection, site not specified deisy - Abuse of other non-psychoactive substances deisy - Adverse effect of amphetamines deisy - Tobacco use deisy - Tobacco abuse counseling deisy - Anxiety disorder, unspecified deisy Followup: deisy - With: Private Physician - When: 2 - 3 days - Reason: Recheck today's complaints, Continuance of care, Re-evaluation by your physician Followup: deisy - With: Tyler Puga MD - When: 2 - 3 days - Reason: Recheck today's complaints, Re-evaluation by your physician Discharge Instructions: - Discharge Summary Sheet deisy - Panic Attack deisy - Substance Use Disorder deisy - Steps to Quit Smoking deisy - Health Risks of Smoking deisy - Urinary Tract Infection, Adult deisy - Urinary Tract Infection, Adult, [id number] deisy - Steps to Quit Smoking, [id number] deisy - Panic Attack, [id number] deisy - Supporting Someone With Substance Use Disorder deisy - Managing Anxiety, Adult deisy Forms: - Medication Reconciliation Form [facility] - Thank You Letter deisy - Antibiotic Education deisy - Prescription Opioid Use deisy - Patient Portal Instructions deisy - Leadership Thank You Letter deisy Prescriptions: - Cipro 250 mg Oral tablet - take 1 tablet ORAL route every 12 hours; 14 tablet; Refills: 0, Product [facility] Selection Permitted Signatures: Dispatcher [employer] Myles Paul MD MD cha Doucette, Kyli RN RN kd3 Latisha Briscoe RN RN kc6 Corrections: (The following items were deleted from the chart) 14:32 14:24 Rocephin IV 1 grams IV at per protocol once; Given slow IV push per pharmacy deisy instructions ordered. deisy
[2024-01-08 16:07] VITALS: BP 134/77; TEMP 98.3; O2SAT 98
== END ==
LOC: ER 12:21
DX: N39.0 Urinary tract infection, site not specified (principal); F55.8 Abuse of other non-psychoactive substances; T43.625A Adverse effect of amphetamines, initial encounter; F41.9 Anxiety disorder, unspecified; Z71.6 Tobacco abuse counseling; Z72.0 Tobacco use
CPT/HCPCS: 36415; 80048; 80076; 80143; 80179; 80307; 81001; 81025; 82077; 85025; 85610; 85730; 87086; 87088; 96374; 99285; J7030

== ENCOUNTER 2024-03-09 18:24 | Emergency (ER) | payer SELFPAY ==
--- OUTSIDE RECORDS SUMMARY | 2024-03-09 18:29 | XMS REPORT | Continuity of Care Document ---
Author Name Unknown Address [address] [facility] [address] [place] [address] [facility] heal[facility] Address [address] [facility] [address] [place] [address] Care Team Providers Care Dipper And Drier Name Role Phone UNKNOWN, REFFERING Primary Care Physician Sherman Espinosa Attending Clinician Unavailable Rj Diez Attending Clinician Unavailab Rj Hardwick Attending Clinician Unavailab Alisa Haas RN Attending Clinician Unavailabl e GC_GCBZW_Kadiyala_S Attending Clinician Unavaila JYOTI Pavon Attending Clinician Unavailable SEPIDEH PALMER Attending Clinician Unavailab Sepideh Martini DO Attending Clinician [phone] MIUGEL A NATH Attending Clinician Unavailable Miguel A Nath MD Attending Clinician [phone] Doctor Unassigned, [place] Attending Clinician U GAGE Bowden Attending Clinician Unavailable Gage Reid MD Attending Clinician [phone] Ultrasound, Ang-Mfm Attending Clinician Cheikh Villa MD Attending Clinician [phone] Fellow, [facility] Attending Clinician Un available Hussein SMILEY, [place] F Attending Clinician [phone] Olga Lidia Corral MD Attending Clinician [phone] Sanjana Sierra PA-C Attending Clinician [phone] Edson Emanuel Attending Clinician [phone] Edson CHAMBERS Attending Clinician Unavailable Faculty, [facility] Attending Clinician Lilia Mark MD, Porter Bar Attending Clinician [phone] NORMA ZHANG M.D., NORMA Smith M.D. Attendin vianney Clinician Unavailable GAGE REID Admitting Clinician Unavailable Sherman Collazo Admitting Clinician Unavailable Rj Diez Admitting Clinician Unavailab matthew GC_GCBZW_Kadiyala_S Admitting Clinician Unavaila diana Reid MD, Gage Holloway Admitting Clinician [phone] NORMA ZHANG M.D., NORMA Smith Admitting Clin ician Unavailable Payers Payer Name Policy Type Policy Number Effective Date Expirati on Date Source [employer] MEDICAID [id number] 2020 00:00:00 [facility] [id number] [place] [id number] 2020 00:00:00 Problems Condition Name Condition Details Condition Category Status Onset Date Resolution Date Last Treatment Date Treating Clinician Comments Source 39 weeks gestation of 39 weeks gestation of Disease Active 2019-11 00:00: 00 [facility] QT prolongati on QT prolongati on Disease Active 2019-11 00:00: 00 [facility] Obesity (BMI 30-39.9) Obesity (BMI 30-39.9) Disease Active 2019-11 00:00: 00 [facility] Insufficie nt care in third trimester Insufficie nt care in third trimester Disease Active 2019-11 00:00: 00 [facility] Severe episode of recurrent major depressive disorder, 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, without psychotic features Disease Active 5-14 00:00: 00 [facility] Supervisio n of high risk in third trimester Supervisio n of high risk in third trimester Disease Active 03-15 00:00: 00 [facility] History of cardiac arrest History of cardiac arrest Disease Active 03-15 00:00: 00 [facility] Anxiety disorder, unspecifie d type Anxiety disorder, unspecifie d type Disease Active 03-15 00:00: 00 [facility] History of drug abuse History of drug abuse Disease Active 03-15 00:00: 00 [facility] History of herpes genitalis History of herpes genitalis Disease Active 03-15 00:00: 00 [facility] Previous section Previous section Disease Active 03-15 00:00: 00 [facility] Medication exposure during first trimester of Medication exposure during first trimester of Disease Active 03-15 00:00: 00 [facility] Smoking Smoking Disease Active 03-15 00:00: 00 [facility] Abdominal pain, epigastric Abdominal pain, epigastric Disease Active 02-26 00:00: 00 [facility] Allergies, Adverse Reactions, Alerts Allergy Name Allergy Type Status Severity Reaction(s) Onset Date Inactive Date Treating Clinician Comments Source morphine DA Active SV 12-22 00:00: 00 [facility] morphine DA Active SV "HEART STOPPED" 12-22 00:00: 00 [facility] MORPHINE DRUG INGREDI Active Unknown-Cmnt 2010-11 00:00: 00 [facility] Morphine Propensi ty to adverse reaction s Active Unknown - See comments 2010-11 00:00: 00 Per patient she went into cardiac arrest after receiving morphine at the hospital March 2011 [facility] morphine Drug Active [facility] morphine Drug [facility] morphine Drug [facility] morphine Drug [facility] morphine Drug [facility] morphine Drug [facility] morphine Drug Active [facility] morphine Drug [facility] morphine Drug [facility] morphine Drug [facility] morphine Drug Active [facility] morphine Drug Active [facility] morphine Drug Active [facility] Social History Social Habit Start Date Stop Date Quantity Comments Source ASSERTION 2019-12-22 00:00:00 [facility] of tobacco use Cigarette Smoker [facility] History of Social function 2023-05-01 00:00:00 2023-05-01 00:00:00 [facility] Alcohol intake 2023-05-01 00:00:00 2023-05-01 00:00:00 Current drinker of alcohol (finding) [facility] Exposure to SARS-CoV-2 (event) 2023-01-03 00:00:00 2023-01-13 21:35:00 Not sure [facility] Cigarettes smoked current (pack per day) - Reported 2020-03-15 00:00:00 2020-03-15 00:00:00 [facility] Tobacco use and exposure 2020-03-15 00:00:00 2020-03-15 00:00:00 Smokeless tobacco non-user [facility] Sex Ass[birth year] At 1980 00:00:00 1980 00:00:00 [facility] Smoking Status Start Date Stop Date Source Smokes tobacco daily 2020-03-15 00:00:00 [facility] Medications Ordered Medication Name Filled Medication Name Start Date Stop Date Current Medication? Ordering Clinician Indication Dosage Frequency Signature (SIG) Comments Components Source NaCl 0.9% (NS) bolus infusion 1,000 mL 05-01 19:00: 00 05-01 19:10 :00 No 1000mL at 999 mL/hr, 1,000 mL, IV Infusion, ONCE, 1 dose, On Thu05/01/23 at 1400, [facility] ondansetron (ZOFRAN (PF)) injection 4 mg 05-01 19:00: 00 05-01 18:53 :00 No 4mg 4 mg, Slow IV Push, ONCE, 1 dose, On Thu05/01/23 at 1400, [facility] cefTRIAXone (ROCEPHIN) 1,000 mg in NaCl 0.9% (NS) 100 mL MINI-BAG 05-01 18:15: 00 05-01 18:43 :00 No 1000mg 1,000 mg, IV Piggyback, ONCE, 1 dose, On Thu05/01/23 at 1315, Administer over 30 Minutes, 100 mL
Reas on for Anti-Infec tive: Documented Infection< br>Documen bhavya Infection Site: Urine
D uration of Therapy: 7 days [facility] NaCl 0.9% (NS) bolus infusion 1,000 mL 05-01 17:30: 00 05-01 18:14 :00 No 1000mL at 999 mL/hr, 1,000 mL, IV Infusion, ONCE, 1 dose, On Thu05/01/23 at 1230, CHRISTY [facility] ondansetron 4 mg disintegrat ing tablet 05-01 00:00: 00 Yes [id number] 4mg Take 1 tablet by mouth every 8 (eight) hours as needed for Nausea and Vomiting (N/V). [facility] sulfamethox azole-trime thoprim 800-160 mg per tablet 05-01 00:00: 00 05-07 04:59 :00 No [id number] 1{tbl} Take 1 tablet by mouth every 12 (twelve) hours for 5 days. [facility] risperiDONE 2 mg tablet 2019-11 01:27: 56 Yes 2mg Take 2 mg by mouth daily. [facility] SERTraline (ZOLOFT) 50 mg tablet 2019-11 01:27: 56 Yes 50mg Take 50 mg by mouth daily. [facility] D5W-LR IV infusion 1,000 mL 2019-11 00:45: 00 Yes 1000mL at 125 mL/hr, IV Infusion, CONTINUOUS , Starting Thu09/12/20 at 1845, Until Discontinu ed, Routine [facility] risperiDONE 2 mg tablet 2019-11 19:27: 56 Yes 2mg Take 2 mg by mouth daily. [facility] SERTraline (ZOLOFT) 50 mg tablet 2019-11 19:27: 56 Yes 50mg Take 50 mg by mouth daily. [facility] risperiDONE 2 mg tablet 2019-11 01:35: 11 Yes 2mg Take 2 mg by mouth daily. [facility] SERTraline (ZOLOFT) 50 mg tablet 2019-11 01:35: 11 Yes 50mg Take 50 mg by mouth daily. [facility] D5W-LR IV infusion 1,000 mL 2019-11 00:45: 00 Yes 1000mL at 125 mL/hr, IV Infusion, CONTINUOUS , Starting 09/10/20 at 1845, Until Discontinu ed, Routine [facility] PNV 102-iron-fo late 1-dss-dha (VITAFOL FE+, WITH DOCUSATE,) 90 mg iron-1 mg -50 mg-200 mg Cap 03-15 00:00: 00 Yes [id number] Take 1 TAB-CAP/M2 by mouth daily. [facility] PNV 102-iron-fo late 1-dss-dha (VITAFOL FE+, WITH DOCUSATE,) 90 mg iron-1 mg -50 mg-200 mg Cap 03-15 00:00: 00 Yes [id number] Take 1 TAB-CAP/M2 by mouth daily. [facility] LORazepam (ATIVAN) tablet 2 mg 06-23 02:00: 00 06-23 00:55 :00 No 2mg 2 mg, Oral, ONCE, 1 dose, Thu06/22/19 at 2100, CHRISTY [facility] gabapentin 300 mg capsule 06-22 00:00: 00 07-23 04:59 :00 No [id number] 300mg Take 1 capsule by mouth 2 (two) times daily for 30 days. [facility] KCL (K-DUR) 20 mEq tablet 2010-11 00:00: 00 03-15 00:00 :00 No 40meq Take 2 Tabs by mouth daily. [facility] metoprolol tartrate (LOPRESSOR) 25 mg tablet 2010-11 00:0003-15 00:00 :00 No 12.5mg Take 0.5 Tabs by mouth 2 (two) times daily. [facility] magnesium oxide (MAG-OX 400) 400 mg tablet 2010-11 00:00: 00 03-15 00:00 :00 No 800mg Take 2 Tabs by mouth 3 (three) times daily. [facility] FLUoxetine (PROZAC) 20 mg capsule 06-06 00:00: 09-10 00:00 :00 No 20mg Take 1 Cap by mouth daily. [facility] clonazePAM (KLONOPIN) 0.5 mg tablet 06-06 00:00: 03-15 00:00 :00 No .5mg Take 1 Tab by mouth 3 (three) times daily. [facility] calcium carbonate (OSCAL-500) 500 mg (1,250 mg) tablet 03-14 00:00: 00 03-15 00:00 :00 No 500mg Take 1 Tab by mouth 3 (three) times daily with meals. [facility] ferrous sulfate 325 mg (65 mg Iron) tablet 03-14 00:00: 00 03-15 00:00 :00 No 325mg Take 1 Tab by mouth 3 (three) times daily with meals. [facility] nicotine (NICODERM) 21 mg/24 hr patch 03-14 00:00: 00 03-15 00:00 :00 No 1{patch } Apply 1 Patch to area(s) every 24 (twenty-fo ur) hours. [facility] thiamine (VITAMIN B1) 100 mg tablet 03-14 00:00: 00 03-15 00:00 :00 No 100mg Take 1 Tab by mouth daily. [facility] vitamin w/FA ( RX OR GENERIC EQUIVALENT) tablet 03-14 00:00: 00 03-15 00:00 :00 No 1{tbl} Take 1 Tab by mouth daily. [facility] Vital Signs Vital Name Observation Time Observation Value Comments S ource Height/Length Measured 2020-07-25 11:28:48 Systolic blood pressure 2023-05-01 18:15:22 148 mm[Hg] [facility] Diastolic blood pressure 2023-05-01 18:15:22 73 mm[Hg] [facility] Heart rate 2023-05-01 18:15:22 93 /min [facility] Respiratory rate 2023-05-01 18:15:22 16 /min [facility] Oxygen saturation in Arterial blood by Pulse oximetry 2023-05-01 18:15:22 100 /min [facility] Body temperature 2023-05-01 16:33:00 36.44 Lien [facility] Body weight 2023-05-01 16:33:00 90.719 kg [facility] BMI 2023-05-01 16:33:00 34.33 kg/m2 [facility] Systolic blood pressure 2023-01-14 02:37:00 133 mm[Hg] [facility] Diastolic blood pressure 2023-01-14 02:37:00 65 mm[Hg] [facility] Heart rate 2023-01-14 02:37:00 89 /min [facility] Body temperature 2023-01-14 02:37:00 37.44 Lien [facility] Respiratory rate 2023-01-14 02:37:00 18 /min [facility] Body height 2023-01-14 02:37:00 162.6 cm [facility] Body weight 2023-01-14 02:37:00 90.719 kg [facility] BMI 2023-01-14 02:37:00 34.33 kg/m2 [facility] Oxygen saturation in Arterial blood by Pulse oximetry 2023-01-14 02:37:00 96 /min [facility] Systolic blood pressure 2020-09-12 23:45:00 128 mm[Hg] [facility] Diastolic blood pressure 2020-09-12 23:45:00 66 mm[Hg] [facility] Heart rate 2020-09-12 23:45:00 97 /min [facility] Body temperature 2020-09-12 23:45:00 36.61 Lien [facility] Respiratory rate 2020-09-12 21:30:00 18 /min [facility] Oxygen saturation in Arterial blood by Pulse oximetry 2020-09-12 21:30:00 92 /min [facility] Body height 2020-09-12 20:00:00 162.6 cm [facility] Body weight 2020-09-12 20:00:00 90.719 kg [facility] BMI 2020-09-12 20:00:00 34.33 kg/m2 [facility] Systolic blood pressure 2020-09-12 23:45:00 128 mm[Hg] [facility] Diastolic blood pressure 2020-09-12 23:45:00 66 mm[Hg] [facility] Heart rate 2020-09-12 23:45:00 97 /min [facility] Body temperature 2020-09-12 23:45:00 36.61 Lien [facility] Respiratory rate 2020-09-12 21:30:00 18 /min [facility] Oxygen saturation in Arterial blood by Pulse oximetry 2020-09-12 21:30:00 92 /min [facility] Body height 2020-09-12 20:00:00 162.6 cm [facility] Body weight 2020-09-12 20:00:00 90.719 kg [facility] BMI 2020-09-12 20:00:00 34.33 kg/m2 [facility] Heart rate 2020-09-11 00:51:00 82 /min [facility] Oxygen saturation in Arterial blood by Pulse oximetry 2020-09-11 00:51:00 98 /min [facility] Systolic blood pressure 2020-09-11 00:30:00 91 mm[Hg] [facility] Diastolic blood pressure 2020-09-11 00:30:00 73 mm[Hg] [facility] Body temperature 2020-09-10 23:46:00 36.5 Lien [facility] Respiratory rate 2020-09-10 23:46:00 18 /min [facility] Body height 2020-09-10 23:46:00 162.6 cm [facility] Body weight 2020-09-10 23:46:00 90.992 kg [facility] BMI 2020-09-10 23:46:00 34.43 kg/m2 [facility] Systolic blood pressure 2020-09-10 22:35:00 133 mm[Hg] [facility] Diastolic blood pressure 2020-09-10 22:35:00 72 mm[Hg] [facility] Heart rate 2020-09-10 22:27:00 104 /min [facility] Body temperature 2020-09-10 22:27:00 36.72 Lien [facility] Respiratory rate 2020-09-10 22:27:00 18 /min [facility] Body height 2020-09-10 22:27:00 162.6 cm [facility] Body weight 2020-09-10 22:27:00 90.992 kg [facility] BMI 2020-09-10 22:27:00 34.43 kg/m2 [facility] Height/Length Measured 2021-11-19 12:39:49 162.56 cm Weight [...] Systolic blood pressure 2020-03-15 13:32:00 129 mm[Hg] [facility] Diastolic blood pressure 2020-03-15 13:32:00 71 mm[Hg] [facility] Heart rate 2020-03-15 13:32:00 85 /min [facility] Body temperature 2020-03-15 13:32:00 36.78 Lien [facility] Respiratory rate 2020-03-15 13:32:00 18 /min [facility] Body height 2020-03-15 13:32:00 162.6 cm [facility] Body weight 2020-03-15 13:32:00 78.926 kg [facility] BMI 2020-03-15 13:32:00 29.87 kg/m2 [facility] Systolic blood pressure 2020-03-07 01:00:00 114 mm[Hg] [facility] Diastolic blood pressure 2020-03-07 01:00:00 55 mm[Hg] [facility] Heart rate 2020-03-07 01:00:00 99 /min [facility] Body temperature 2020-03-07 01:00:00 36.67 Lien [facility] Respiratory rate 2020-03-07 01:00:00 20 /min [facility] Oxygen saturation in Arterial blood by Pulse oximetry 2020-03-07 01:00:00 98 /min [facility] Body weight 2020-03-06 23:00:00 68.04 kg [facility] BMI 2020-03-06 23:00:00 25.75 kg/m2 [facility] Body height 2020-03-06 22:57:00 162.6 cm [facility] Systolic blood pressure 2019-06-23 02:08:00 146 mm[Hg] [facility] Diastolic blood pressure 2019-06-23 02:08:00 89 mm[Hg] [facility] Heart rate 2019-06-23 02:08:00 130 /min made aware [facility] Body temperature 2019-06-23 02:08:00 36.72 Lien [facility] Respiratory rate 2019-06-23 02:08:00 18 /min [facility] Oxygen saturation in Arterial blood by Pulse oximetry 2019-06-23 02:08:00 95 /min [facility] Body weight 2019-06-23 00:05:00 68.04 kg [facility] BMI 2019-06-23 00:05:00 25.75 kg/m2 [facility] Systolic blood pressure 2019-06-10 19:43:00 117 mm[Hg] [facility] Diastolic blood pressure 2019-06-10 19:43:00 66 mm[Hg] [facility] Heart rate 2019-06-10 19:43:00 110 /min [facility] Body temperature 2019-06-10 19:43:00 37.06 Lien [facility] Respiratory rate 2019-06-10 19:43:00 18 /min [facility] Body weight 2019-06-10 19:43:00 63.504 kg [facility] BMI 2019-06-10 19:43:00 24.03 kg/m2 [facility] Oxygen saturation in Arterial blood by Pulse oximetry 2019-06-10 19:43:00 97 /min [facility] Procedures Procedure Date / Time Performed Performing Clinician Source URINALYSIS 2023-05-01 17:17:00 [facility] 2023-05-01 17:17:00 Latasha Palmer ra [facility] CREATINE KINASE 2023-05-01 16:44:00 Sepideh Palmer [facility] COMP. METABOLIC PANEL ([id number]) 2023-05-01 16:44:00 Sepideh Palmer [facility] CBC WITH DIFF 2023-05-01 16:44:[address] [facility] AUTHORIZATION FOR RELEASE OF PHI 2022-03-05 05:01:00 Doctor Unassigned, [place] [facility] [id number] 2020-09-13 00:00:00 TONIO CARRINGTON [facility] ADC / LCC - DRUG SCREEN TRIAGE 2020-09-12 22:07:00 Gage Reid [facility] MAGNESIUM 2020-09-12 21:06:00 Gage Reid [facility] COMP. METABOLIC PANEL ([id number]) 2020-09-12 21:06:00 Gage Reid [facility] CBC WITH DIFF 2020-09-12 21:06:00 Gage Reid [facility] ECHO ROUTINE W/DOPPLER COLOR 2020-09-12 20:43:53 Talib Rivera [facility] CONSENT/REFUSAL FOR DIAGNOSIS AND TREATMENT 2020-09-12 19:55:29 Doctor Unassigned, [place] [facility] ASSIGNMENT OF BENEFITS 2020-09-12 19:39:54 Docto r Unassigned, [place] [facility] CBC WITH DIFF 2020-09-11 00:30:00 Gage Reid [facility] COVID-19 (ID NOW RAPID TESTING) 2020-09-11 00:15:[address] [facility] CONSENT/REFUSAL FOR DIAGNOSIS AND TREATMENT 2020-09-10 23:34:19 Doctor Unassigned, [place] [facility] ASSIGNMENT OF BENEFITS 2020-09-10 23:33:44 Docto r Unassigned, [place] [facility] GROUP B STREPTOCOCCUS BY PCR 2020-09-10 22:45:[address] [facility] L&D VISIT (NON-DELIVERED) 2020-09-10 06:01:00 Doctor Unassigned, [place] [facility] EXTERNAL PROVIDER RECORDS 2020-04-18 05:01:00 Doctor Unassigned, [place] [facility] ADC / LCC - DRUG SCREEN TRIAGE 2020-03-15 14:26:00 Gage Reid [facility] ASSIGNMENT OF BENEFITS 2020-03-15 13:18:47 Docto r Unassigned, [place] [facility] POCT URINALYSIS W/O SPECIFIC GRAVITY 2020-03-15 00:00:[address] [facility] POCT TEST 2020-03-07 00:38:00 Edson Chambers [facility] MAGNESIUM 2020-03-06 23:24:00 Edson Chambers [facility] COMP. METABOLIC PANEL ([id number]) 2020-03-06 23:24:00 Edson Chambers [facility] SALICYLATE 2020-03-06 23:24:00 Edson Chambers [facility] ETHANOL 2020-03-06 23:24:00 Edson Chambers [facility] CBC WITH DIFFERENTIAL 2020-03-06 23:24:00 Edson Chambers [facility] URINALYSIS 2020-03-06 23:21:00 Edson Chambers [facility] ADC / LCC - DRUG SCREEN TRIAGE 2020-03-06 23:21:00 Edson Chambers [facility] EKG-12 LEAD 2020-03-06 23:04:57 Edson Chambers [facility] NOTICE OF PRIVACY PRACTICES 2019-06-10 19:40:45 Doctor Unassigned, [place] [facility] CONSENT/REFUSAL FOR DIAGNOSIS AND TREATMENT 2019-06-10 19:34:31 Doctor Unassigned, [place] [facility] Encounters Start Date/Time End Date/Time Encounter Type Admission Type Attending [facility] Care Facility Care Department Encounter ID Source 2021-08-31 04:56:11 Outpatient P [facility] RACHEL [id number] [facility] 2021-08-31 04:16:00 Outpatient P [facility] RACHEL [id number] [facility] 2021-08-31 04:15:28 Outpatient P [facility] RACHEL [id number] [facility] 2020-09-13 22:39:00 Inpatient Sherman Fabian [facility] [id number] 25 [facility] 2020-07-25 10:46:00 Inpatient Rj Diez Thomas [facility] PSY [id number] [facility] 2023-11-14 00:00:00 2023-11-14 00:00:00 Nurse Triage ZanaAlisa lemus [facility] [id number] [facility] 2023-08-15 00:00:00 2023-08-15 00:00:00 Outpatient GC_GCBZW_Ka diyala_S PRIV PRIV [id number] [facility] 2023-08-05 15:00:00 2023-08-05 15:00:00 Outpatient JYOTI HOANG [facility] [id number] [facility] 2023-08-05 00:00:00 2023-08-05 00:00:00 Outpatient GC_GCBZW_Ka diyala_S PRIV PRIV [id number] [facility] 2023-08-05 00:00:00 2023-08-05 00:00:00 Outpatient GC_GCBZW_Ka diyala_S PRIV PRIV [id number] [facility] 2023-07-20 00:00:00 2023-07-20 00:00:00 Outpatient GC_GCBZW_Ka diyala_S PRIV PRIV [id number] [facility] 2023-05-01 11:30:00 2023-05-01 14:17:00 Emergency X SEPIDEH PALMER [facility] ERT [id number] [facility] 2023-05-01 11:30:00 2023-05-01 14:17:00 Emergency Sepideh Palmer [facility] [id number]..[id number] [facility] 2023-01-13 21:42:00 2023-01-13 22:24:00 Emergency X GABIMIGUEL A MARIE [facility] ERT [id number] [facility] 2023-01-13 21:42:00 2023-01-13 22:24:00 Emergency GabiMiguel A marie [facility] ..[id number] [facility] 2022-03-05 00:00:00 2022-03-05 00:00:00 Orders Only Doctor Unassigned, [place] [facility] 1..840.114 [id number] [id number] [facility] 2021-09-23 15:00:00 2021-09-23 15:00:00 Outpatient R GAGE REID [facility] [id number] [facility] 2021-08-21 09:30:00 2021-08-21 09:30:00 Outpatient R GAGE REID [facility] [id number] [facility] 2020-09-12 13:34:00 2020-09-12 18:35:00 Hospital Encounter Gage Reid [facility] [id number] [facility] 2020-09-12 13:34:00 2020-09-12 18:35:00 Hospital Encounter Gage Reid [facility] [id number] 2020-09-12 09:45:00 2020-09-12 09:45:00 Outpatient R GAGE REID [facility] [id number] [facility] 2020-09-11 15:45:00 2020-09-11 15:45:00 Outpatient R GAGE REID [facility] [id number] [facility] 2020-09-11 00:00:00 2020-09-11 00:00:00 Telephone Jeanette [facility] Professio nal Building 1.2840.114 350.1.13.10 4.2.7.2.686 [id number] [facility] 2020-09-11 00:00:00 2020-09-11 00:00:00 Case Management Gage Reid [facility] Professio nal Building 1.2.840.114 350.1.13.10 4.2.7.2.686 [id number] [facility] 2020-09-11 00:00:00 2020-09-11 00:00:00 Telephone [facility] Building 1.2.840.114 350.1.13.10 4.2.7.2.686 [id number] 2020-09-10 17:30:00 2020-09-10 19:10:00 Hospital Encounter Gage Reid [facility] 1.2.840.114 350.1.13.10 4.2.7.2.686 [id number] [facility] 2020-09-10 16:09:56 2020-09-10 17:20:04 [facility] 1.2.840.114 350.1.13.10 4.2.7.2.686 [id number] [facility] 2020-09-10 16:00:00 2020-09-10 16:00:00 Outpatient R JEANETTE GAGE [facility] [id number] [facility] 2020-09-03 13:00:00 2020-09-03 13:00:00 Outpatient R JEANETTE GAGE [facility] [id number] [facility] 2020-08-31 08:30:00 2020-08-31 08:30:00 Outpatient R JYOTI PAGAN [facility] [id number] [facility] 2020-08-21 10:30:00 2020-08-21 10:30:00 [facility] [id number] [facility] 2020-08-14 10:30:00 2020-08-14 10:30:00 Outpatient R LATASHA [facility] [id number] [facility] 2020-08-13 11:00:00 2020-08-13 11:00:00 Outpatient R GAGE REID [facility] [id number] [facility] 2020-07-25 10:07:00 2020-08-02 13:01:00 Inpatient 1 Rj Diez [facility] [id number] [facility] 2020-07-20 08:30:00 2020-07-20 08:30:00 Outpatient R JYOTI PAGAN [facility] [id number] [facility] 2020-07-17 13:30:00 2020-07-17 13:30:00 Outpatient R LATASHA [facility] [id number] [facility] 2020-07-12 14:30:00 2020-07-12 14:30:00 Outpatient R GAGE REID [facility] [id number] [facility] 2020-06-19 14:30:00 2020-06-19 14:30:00 Outpatient R GAGE REID [facility] [id number] [facility] 2020-04-30 08:45:00 2020-04-30 08:45:00 Outpatient R [facility] [id number] [facility] 2020-04-26 10:31:59 2020-04-26 11:51:31 Care Transitions Manager Visit Ultrasound, Cheikh Dee [facility] TUB [facility] 1..840.114 350.1.13.10 4.2.7.2.686 [id number] [facility] 2020-04-26 10:15:00 2020-04-26 10:15:00 Outpatient P [facility] [id number] [facility] 2020-04-26 00:00:00 2020-04-26 00:00:00 Letter (Out) Doctor Unassigned, [place] [facility] 1.840.114 350.1.13.10 4.2.7.2.686 [id number] [facility] 2020-04-20 15:00:00 2020-04-20 15:00:00 Outpatient R [facility] [id number] [facility] 2020-04-20 08:18:30 2020-04-20 08:33:30 Telemedici ne Visit Fellow, [facility] Morro Savage [facility] 1..114 350.1.13.10 4.2.7.2.686 [id number] [facility] 2020-04-18 00:00:00 2020-04-18 00:00:00 Orders Only Doctor Unassigned, [place] [facility] 1.2.114 350.1.13.10 4.2.7.2.686 [id number] [facility] 2020-04-12 08:45:00 2020-04-12 08:45:00 Outpatient R GAGE REID [facility] [id number] [facility] 2020-04-06 08:00:00 2020-04-06 08:30:00 Telemedici ne Visit Fellow, [facility] Olga Lidia Corral [facility] 1.114 350.1.13.10 4.2.7.2.686 [id number] [facility] 2020-04-06 08:00:00 2020-04-06 08:00:00 Outpatient R [facility] [id number] [facility] 2020-03-30 00:00:00 2020-03-30 00:00:00 Case Management Sanjana Sierra [facility] 1.84.114 350.1.13.10 4.2.7.2.686 [id number] [facility] 2020-03-20 00:00:00 2020-03-20 00:00:00 Refill Gage Reid [facility] 1.84.114 350.1.13.10 4.2.7.2.686 [id number] [facility] 2020-03-15 08:20:24 2020-03-15 09:19:11 Initial Visit Gage Reid [facility] nal Building 1.2.840.114 350.1.13.10 4.2.7.2.686 [id number] [facility] 2020-03-15 08:00:00 2020-03-15 08:00:00 Outpatient R GAGE REID [facility] [id number] [facility] 2020-03-15 00:00:00 2020-03-15 00:00:00 Orders Only Doctor Unassigned, [place] [facility] 1.2.840.114 350.1.13.10 4.2.7.2.686 [id number] [facility] 2020-03-15 00:00:00 2020-03-15 00:00:00 Telephone Gage Reid [facility] Building 1.2.840.114 350.1.13.10 4.2.7.2.686 [id number] [facility] 2020-03-06 17:55:54 2020-03-06 22:34:00 Emergency Edson Chambers [facility] 1.2.840.114 350.1.13.10 4.2.7.2.686 [id number] [facility] 2020-03-06 17:55:54 2020-03-06 17:55:54 Emergency X Edson CH[facility]ERS [facility] ERT [id number] [facility] 2020-02-01 00:00:00 2020-02-01 00:00:00 Telephone Faculty, Hood Yepez [facility] TUB [facility] 1.2.840.114 350.1.13.10 4.2.7.2.686 [id number] [facility] 2019-06-22 19:07:21 2019-06-22 21:13:00 Emergency [facility] 1.2.840.114 350.1.13.10 4.2.7.2.686 [id number] [facility] 2019-06-10 14:44:46 2019-06-10 15:34:00 Emergency Sepideh Palmer [facility] 1.2.840.114 350.1.13.10 4.2.7.2.686 [id number] [id number] [facility] 2019-06-10 00:00:00 2019-06-10 00:00:00 Orders Only Doctor Unassigned, [place] [facility] 1.2.840.114 350.1.13.10 4.2.7.2.686 [id number] [facility] Results Test Description Test Time Test Comments Results Result Co mments Source [facility]O [id number] 07:10:00* Test Item Value Reference Range Interpretation [...] code = PLTMR) NORMAL NORMAL Comments to [employer]: TO BE COLLECTED BY LABRUBELLA [id number] 14:15:00* Test Item Value Reference Range Interpretation Comme nts RUBELLA SCREEN (test code = RUBSC) 73.8 IUnit/ml Results >10.0IUn its/ml are considered positive inaccordance with the CLSI guidelines and based on the WHO International Standard for Anti-Rubella serum as anindicator of immune status and a breakpoint to detect mostseropositive persons. Comments to [employer] Helper: please use blood alreadyin the labB [id number] 07:26:00* Test Item Value Reference Range Interpretation Comme nts HEMOGLOBIN (test code = HGB) 10.9 g/dL 10.7-13.9 N HEMATOCRIT (test code = HCT) 34.6 % 32.1-42.1 N AB HEPATITIS C [id number] 04:56:00* Test Item Value Reference Range Interpretation Comme nts AB HEPATITIS C (test code = HCVAB) NONREACTIVE NONREACTIVE SIGNAL TO CUTOFF (test code = CUTOFF) 0.10 <0.80 N IS CONSENT FORM SIGNED FOR HIV TESTING? YAB [id number] 04:56:00* Test Item Value Reference Range Interpretation Comme nts AB TREPONEMA (test code = TREPAB) NONREACTIVE NONREACTIVE IS CONSENT FORM SIGNED FOR HIV TESTING? YAB HIV 1 04:56:00* Test Item Value Reference Range Interpretation Comme nts AB HIV 1 2 (test code = FAF62PK) NONREACTIVE NONREACTIVE Done by [employer] HIV Ag/Ab Combo Screen IS CONSENT FORM SIGNED FOR HIV TESTING? YAG HEPATITIS B [id number] 04:56:00* Test Item Value Reference Range Interpretation Comme nts AG HEPATITIS B SURFACE (test code = HBSAG) NONREACTIVE NONREACTIVE IS CONSENT FORM SIGNED FOR HIV TESTING? JAMES HEPATITIS C [id number] 04:56:00* Test Item Value Reference Range Interpretation Comme nts AB HEPATITIS C (test code = HCVAB) NONREACTIVE NONREACTIVE SIGNAL TO CUTOFF (test code = CUTOFF) 0.10 <0.80 N IS CONSENT FORM SIGNED FOR HIV TESTING? YAB [id number] 04:56:00* Test Item Value Reference Range Interpretation Comme nts AB TREPONEMA (test code = TREPAB) NONREACTIVE NONREACTIVE IS CONSENT FORM SIGNED FOR HIV TESTING? GABIB HIV 1 04:56:00* Test Item Value Reference Range Interpretation Comme nts AB HIV 1 2 (test code = GOR90GH) NONREACTIVE IS CONSENT FORM SIGNED FOR HIV TESTING? EAMON HEPATITIS B [id number] 04:56:00* Test Item Value Reference Range Interpretation Comme nts AG HEPATITIS B SURFACE (test code = HBSAG) NONREACTIVE NONREACTIVE IS CONSENT FORM SIGNED FOR HIV TESTING? YAG HEPATITIS B [id number] 04:41:00* Test Item Value Reference Range Interpretation Comme nts AG HEPATITIS B SURFACE (test code = HBSAG) NONREACTIVE NONREACTIVE IS CONSENT FORM SIGNED FOR HIV TESTING? JAMES HEPATITIS C [id number] 04:41:00* Test Item Value Reference Range Interpretation Comme nts AB HEPATITIS C (test code = HCVAB) NONREACTIVE SIGNAL TO CUTOFF (test code = CUTOFF) <0.80 IS CONSENT FORM SIGNED FOR HIV TESTING? GABIB [id number] 04:41:00* Test Item Value Reference Range Interpretation Comme nts AB TREPONEMA (test code = TREPAB) NONREACTIVE NONREACTIVE IS CONSENT FORM SIGNED FOR HIV TESTING? GABIB HIV 1 04:41:00* Test Item Value Reference Range Interpretation Comme nts AB HIV 1 2 (test code = SBF97HJ) NONREACTIVE IS CONSENT FORM SIGNED FOR HIV TESTING? YCOMPREHENSIVE METABOLIC [id number] 02:39:00* Test Item Value Reference Range Interpretation [...] units/L 46-116 H COVID 19 Asymptomatic IH [id number] 00:09:00* Test Item Value Reference Range Interpretation [...] i.e., in patient care settingsoperating under a [place] Certificate of Waiver, Certificate ofCompliance, or Certificate of Accreditation. This test is only authorized for the duration of thedeclaration that circumstances exist justifying theauthorization of emergency use of in vitro diagnostic testsfor detection and/or diagnosis of COVID-19 under Buipbod409(b)(1) of the Act, 21 U.S.C. 360bbb-3(b)(1), unless theauthorization is terminated or revoked sooner. CBC W/AUTO [id number] 00:00:00* Test Item Value Reference Range Interpretation Comme nts WHITE BLOOD CELL (test code = WBC) 20.9 K/mm3 6.6-12.1 HH RESULTS CALLED Susanna narayan.READ BACK & CONFIRMED? yes.BY NARDA.MR 09/13/20 4514. RED BLOOD CELL (test code = RBC) [...] NORMAL ADC / LCC - DRUG SCREEN [id number] 22:29:00* Test Item Value Reference Range Interpretation Comme nts BENZO U (test code = 8191736570) Presumptive Positive Negative A ARNOLD U (test code = 3668016338) Negative Negative AMPHET (test code = 6287939645) Negative Negative THC (test code = 6634481793) Presumptive Positive Negative A Confirmation of Presumptive Positive THC result requires physician order. METHADONE (test code = 9934285396) Negative Negative Meth U (test code = 0038122694) Negative Negative OPIATES (test code = 5506042239) Presumptive Positive Negative A Cocaine Metabolite (test code = 6391323952) Negative Negative PROPOXY (test code = 3463997621) Negative Negative Tric U (test code = 1604813322) Negative Negative PCP (test code = 9445900041) Negative Negative OXYCOD (test code = 0708599744) Negative Negative YAMIL (test code = YAMIL) [...] legal testing). Lab Interpretation (test code = 90512-0) Abnormal [facility] (71302)2020-09-12 21:50:00* Test Item Value Reference Range Interpretation Comme nts NA (test code = 0665392742) 133 mmol/L 135-145 L K (test code = 4293865700) 3.8 mmol/L 3.5-5 CL (test code = 6571450429) 106 mmol/L 98-108 CO2 TOTAL (test code = 1786537696) 23 mmol/L 23-31 AGAP (test code = 2472035945) 2-16 BUN (test code = 6071049256) 10 mg/dL 7-23 GLUCOSE (test code = 9284207499) 106 mg/dL 70-110 CREATININE (test code = 0197495921) 0.53 mg/dL 0.5-1.04 TOTAL BILI (test code = 0037641869) 0.3 mg/dL 0.1-1.1 CALCIUM (test code = 5349188971) 8.3 mg/dL 8.6-10.6 L T PROTEIN (test code = 0002718176) 6.0 g/dL 6.3-8.2 L ALBUMIN (test code = 1650352342) 3.1 g/dL 3.5-5 L ALK PHOS (test code = 2616391216) 185 U/L 34-122 H ALTv (test code = 1742-6) 15 U/L 5-35 AST(SGOT) (test code = 2089051802) 24 U/L 13-40 eGFR Calculation (Non-) (test code = 7951529333) mL/min/1.73m2 eGFR Calculation () (test code = 8643579538) mL/min/1.73m2 YAMIL (test code = YAMIL) Association [...] imaging tests). Lab Interpretation (test code = 76456-8) Abnormal [facility]2020-[facility]-11 21:50:00* Test Item Value Reference Range Interpretation Comme nts MAGNESIUM (test code = 8332677774) 1.8 mg/dL 1.7-2.4 Lab Interpretation (test cod e = 32568-2) Normal [facility] WITH [id number] 21:37:00* Test Item Value Reference Range Interpretation [...] 33.0 g/dL 31.6-35.1 RDW-SD (test code = 12872-0) 49.1 fL 39-49.9 RDW-CV (test code = 788-0) 14.3 % 12-15.5 PLT (test code = 777-3) See_Comment [Automated message] The system which generated this result transmitted reference range: 166 - 358 10*3/?L. The reference range was not used to interpret this result as normal/abnormal. MPV (test code = 39784-3) 10.0 fL 9.5-12.9 NRBC/100 WBC (test code = 9748115803) See_Comment [Automated message] The system which generated this result transmitted reference range: 0.0 - 10.0 /100 WBCs. The reference range was not used to interpret this result as normal/abnormal. NRBC x10^3 (test code = 2452170858) <0.01 See_Comment [Automated message] The system which generated this result transmitted reference range: 10*3/?L. The reference range was not used to interpret this result as normal/abnormal. GRAN MAT (NEUT) % (test code = 770-8) 77.1 % IMM GRAN % (test code = 0241281370) 1.00 % LYMPH % (test code = 736-9) 15.4 % MONO % (test code = 5905-5) 5.1 % EOS % (test code = 713-8) 1.1 % BASO % (test code = 706-2) 0.3 % GRAN MAT x10^3(ANC) (test code = 1186678434) 11.59 10*3/uL 1.88-7.09 H IMM GRAN x10^3 (test code = 0938842416) 0.15 10*3/uL 0-0.06 H LYMPH x10^3 (test code = 731-0) 2.32 10*3/uL 1.32-3.29 MONO x10^3 (test code = 742-7) 0.76 10*3/uL 0.33-0.92 EOS x10^3 (test code = 711-2) 0.17 10*3/uL 0.03-0.39 BASO x10^3 (test code = 704-7) 0.05 10*3/uL 0.01-0.07 Lab Interpretation (test code = 67233-4) Abnormal [facility] STREPTOCOCCUS BY [id number] 14:02:00* Test Item Value Reference Range Interpretation Comme nts Group B Streptococcus by PCR (test code = 50698-9) Negative Negative Lab Interpretation (test cod e = 62398-2) Normal [facility] (ID NOW RAPID TESTING)2020-09-11 00:51:00* Test Item Value Reference Range Interpretation Comme nts SARS-CoV-2 Rapid ID NOW (test code = 16112-5) Not Detected Not Detected YAMIL (test code = YAMIL) ID NOW COVID-19 As say is an isothermal nucleic acid amplification test intended for the qualitative detection of nucleic acid from SARS-CoV-2 viral RNA in nasopharyngeal (FIRE HAZARD INSPECTOR) specimens. It is used under Emergency Use [...] clinically indicated. Lab Interpretation (test code = 88050-9) Normal [facility] WITH [id number] 00:50:00* Test Item Value Reference Range Interpretation Comme nts WBC (test code = 6690-2) See_Comment H [Automated messa ge] The system which generated [...] 33.1 g/dL 31.6-35.1 RDW-SD (test code = 36103-0) 50.4 fL 39-49.9 H RDW-CV (test code = 788-0) 14.5 % 12-15.5 PLT (test code = 777-3) See_Comment [Automated [employer] ge] The system which generated this result transmitted reference range: 166 - 358 10*3/?L. The reference range was not used to interpret this result as normal/abnormal. MPV (test code = 46974-2) 9.9 fL 9.5-12.9 NRBC/100 WBC (test code = 7285257940) See_Comment [Automated [employer] ssage] The system which generated this result transmitted reference range: 0.0 - 10.0 /100 WBCs. The reference range was not used to interpret this result as normal/abnormal. NRBC x10^3 (test code = 8687480293) <0.01 See_Comment [Automated [employer]] The system which generated this result transmitted reference range: 10*3/?L. The reference range was not used to interpret this result as normal/abnormal. GRAN MAT (NEUT) % (test code = 770-8) 76.4 % IMM GRAN % (test code = 5211295577) 0.90 % LYMPH % (test code = 736-9) 16.0 % MONO % (test code = 5905-5) 5.2 % EOS % (test code = 713-8) 1.3 % BASO % (test code = 706-2) 0.2 % GRAN MAT x10^3(ANC) (test code = 3297200157) 9.39 10*3/uL 1.88-7.09 H IMM GRAN x10^3 (test code = 2214602663) 0.11 10*3/uL 0-0.06 H LYMPH x10^3 (test code = 731-0) 1.97 10*3/uL 1.32-3.29 MONO x10^3 (test code = 742-7) 0.64 10*3/uL 0.33-0.92 EOS x10^3 (test code = 711-2) 0.16 10*3/uL 0.03-0.39 BASO x10^3 (test code = 704-7) 0.03 10*3/uL 0.01-0.07 Lab Interpretation (test code = 28100-6) Abnormal [facility] Texas[facility]act[facility] Jsiugzxdctjcx1657-06-32 08:28:44* Test Item Value Reference Range Interpretation Comme nts LDH (test code = LDH) 166 U/L 120-246 Comprehensive Metabolic Ajvcv2120-06-30 08:16:47* Test Item Value Reference Range Interpretation [...] = Lipemia) 0 g/dL 1-2 Comprehensive Metabolic Jtayw1961-84-94 08:16:47* Test Item Value Reference Range Interpretation [...] is not provided, and the patient is -Cypriot, multiply by 1.212. If sex is not [...] is not provided, and the patient is -Cypriot, multiply by 1.212. If sex is not [...] = Lipemia) 0 g/dL 1-2 Comprehensive Metabolic Kjufc4251-59-46 08:16:47* Test Item Value Reference Range Interpretation [...] is not provided, and the patient is -Cypriot, multiply by 1.212. If sex is not [...] is not provided, and the patient is -Cypriot, multiply by 1.212. If sex is not [...] 0 g/dL 1-2 Complete Blood Count without Etyw1124-48-33 08:09:40* Test Item Value Reference Range Interpretation [...] = NRBC Abs) 0.00 x10 N Creatinine Ejblr5607-13-72 15:39:13* Test Item Value Reference Range Interpretation Comme nts U Creatinine (test code = U Creatinine) 89.1 mg/dL N Reference r anges have not been established for this assay. Protein Srnnl7765-03-33 15:39:13* Test Item Value Reference Range Interpretation Comme nts U Protein (test code = U Protein) 10.4 mg/dL 1.0-14.0 Complete Blood Count without Lcwg6933-90-33 06:39:12* Test Item Value Reference Range Interpretation [...] x10 N US OB Greater Than 14 Nsbae3212-74-12 19:21:42Patient: MARTINE LENTZ Date/Time07/26/2020 17:29 CDTReason for Examper md order;Other (please specify)ReportOB ULTRASOUND LIMITEDLocation: [id number] HISTORY: Confirm pregnancyLMP gest.age by LMP 32 weeks 1 day YESSY by LMP September 19, 2020Gestational Age by ultrasound today 32 weeks 3 days with YESSY September 17, 2020TECHNIQUE:Realtime grayscale, color and spectral or M-ModeDoppler images were obtained. Patient terminated the exam [...] 3 lbs. 15 oz.Placenta posterior grade 1 inappearance without abruption or previa.Cervix not seen wellMaternal adnexa not seen due to the enlarged gravid uterusFetal presentation VertexFETAL ANATOMY:There is suboptimal visualization of the intracranial structures, face. gender not examined. Four-chamber heart view is suboptimal.The patient terminated the exam early.IMPRESSION:Wetzel live IUP of 32 weeks 3 days. No abnormalities demonstrated. Patient terminated the exam early. Final Dictated by: MD De La Rosa Maria VDictated DT/TM: 07/26/2020 7:17 pmSigned by: MD De La Rosa Maria VSigned (Electronic Signature): 07/26/2020 7:21 pmBeta HCG Zanrpuftphxf2414-41-50 14:42:56* Test Item Value Reference Range Interpretation Comme nts HCG, Beta Quantitative (test code = HCG, Beta Quantitative) 61668.1 mIU/mL N 17-54 (Non-)?41 (Post-menopausal) RPR Kpllufonfnw9582-00-69 12:50:28* Test Item Value Reference Range Interpretation [...] code = Expiration Dt) 08-01-2021 N Lipid Mcjmn0514-89-25 07:58:23* Test Item Value Reference Range Interpretation [...] is LDL/HDL Ratio=LDL Calc/HDL Chol Thyroid Stimulating Edoeqhn4784-02-68 07:58:23* Test Item Value Reference Range Interpretation Comme nts TSH (test code = TSH) 1.312 mcIU/mL 0.550-4.780 Hemoglobin [id number] 07:54:16* Test Item Value Reference Range Interpretation Comme nts Hemoglobin A1c (test code = Hemoglobin A1c) 5.1 % 4.0-5.8 Diabetic >=6.5 %Prediabetes 5.7-6.4 %Normal <5.7 % ADC / LCC - DRUG SCREEN [id number] 22:40:00* Test Item Value Reference Range Interpretation Comme nts BENZO U (test code = 1726946931) Negative Negative ARNOLD U (test code = 1944913712) Negative Negative AMPHET (test code = 7612301078) Negative Negative THC (test code = 1153900109) Negative Negative METHADONE (test code = 4561438163) Negative Negative Meth U (test code = 0356093377) Negative Negative OPIATES (test code = 6237764467) Negative Negative Cocaine Metabolite (test code = 3373977237) Negative Negative PROPOXY (test code = 2009016496) Negative Negative Tric U (test code = 3714248000) Negative Negative PCP (test code = 6417466626) Negative Negative OXYCOD (test code = 5014106304) Negative Negative YAMIL (test code = YAMIL) [...] legal testing). Lab Interpretation (test code = 40517-6) Normal [facility] URINALYSIS W/O SPECIFIC [id number] 14:00:00* Test Item Value Reference Range Interpretation [...] = 3257) N/A Negative - Negati ve [facility]. METABOLIC PANEL (64093)2020-03-07 00:39:00* Test Item Value Reference Range Interpretation Comme nts NA (test code = 1773937334) 139 mmol/L 135-145 K (test code = 0984032134) 3.9 mmol/L 3.5-5 CL (test code = 7865685138) 108 mmol/L 98-108 CO2 TOTAL (test code = 3418190601) 22 mmol/L 23-31 L AGAP (test code = 3025995167) 2-16 BUN (test code = 6446353824) 5 mg/dL 7-23 L GLUCOSE (test code = 8444342455) 103 mg/dL 70-110 CREATININE (test code = 7948163541) 0.44 mg/dL 0.5-1.04 L TOTAL BILI (test code = 8052258149) <0.1 0.1-1.1 L CALCIUM (test code = 2178542352) 9.7 mg/dL 8.6-10.6 T PROTEIN (test code = 5982117217) 6.2 g/dL 6.3-8.2 L ALBUMIN (test code = 6507451418) 3.6 g/dL 3.5-5 ALK PHOS (test code = 0636403682) 56 U/L 34-122 ALTv (test code = 1742-6) 10 U/L 5-35 AST(SGOT) (test code = 9384376835) 20 U/L 13-40 eGFR Calculation (Non-) (test code = 2719735982) mL/min/1.73m2 eGFR Calculation () (test code = 4873825724) mL/min/1.73m2 YAMIL (test code = YAMIL) Association [...] imaging tests). Lab Interpretation (test code = 05949-1) Abnormal [facility] Texas[facility]ETAMINOPHEN2020-05-06 00:39:00* Test Item Value Reference Range Interpretation Comme nts ACETAMINOP (test code = 4761713474) <10.0 10-30 L YAMIL (test code = YAMIL) Toxic: Greater hanna n 200 ug/mL @ 4 hour post ingestion or greater than 50 ug/mL @ 12 hour post ingestion Lab Interpretation (test code = 65195-3) Abnormal [facility] TexasSALICYLATE2020-05-06 00:39:00* Test Item Value Reference Range Interpretation Comme nts SALICYLATE (test code = 6794382997) <10 mg/L YAMIL (test code = YAMIL) Therapeutic Range: ? Analgesic and Antipyretic Use ? 20-100 mg/L ? ? Anti-Inflammatory Use ? 100-250 mg/L Toxic Range: ? Greater than 300 mg/L [facility] TexasPOCT IIAX9098-17-87 00:38:00* Test Item Value Reference Range Interpretation Comme nts POCT PREG (test code = 1605) positive On board controls acceptable with C Line (test code = 3574) present POCT PREG LOT # (test code = 3575) [id number] POCT PREG TEST DATE ( test code = 3576) 06-01-2021 Lab Interpretation (test cod e = 65984-9) Normal [facility]* Test Item Value Reference Range Interpretation Comme nts ALCOHOL (test code = 6862173741) 88 mg/dL YAMIL (test code = YAMIL) <10 [id number] Toxic>100 Depression of STOCK [employer]>400 [facility] 00:36:00* Test Item Value Reference Range Interpretation Comme nts MAGNESIUM (test code = 0935535074) 1.6 mg/dL 1.7-2.4 L Lab Interpretation (test cod e = 23942-7) [facility] Test Item Value Reference Range Interpretation Comme nts APPEARANCE (test code = 6461002646) Clear Clear COLOR (test code = 0417546676) Yellow Yellow PH (test code = 5441138568) 4.8-8.0 SP GRAVITY (test code = 8994490827) 1.003-1.030 GLU U QUAL (test code = 2910729594) Normal Normal BLOOD (test code = 1188992825) Negative Negative KETONES (test code = 1909597030) Negative Negative PROTEIN (test code = 2887-8) Negative Negative UROBILIN (test code = 0038323769) Normal Normal BILIRUBIN (test code = 2357203388) Negative Negative NITRITE (test code = 1147853188) Negative Negative LEUK MARY (test code = 1874362958) Negative Negative RBC/HPF (test code = 7618584045) <1 See_Comment [Automated [employer] ge] The system which generated this result transmitted reference range: 0 - 3 HPF. The reference range was not used to interpret this result as normal/abnormal. WBC/HPF (test code = 3602410585) See_Comment [Automated [employer]] The system which generated this result transmitted reference range: 0 - 5 HPF. The reference range was not used to interpret this result as normal/abnormal. BACTERIA (test code = 6099480517) Few Negative A MUCOUS (test code = 7216654341) Slight Negative LPF A SQ EPITH (test code = 8490482181) HPF Lab Interpretation (test code = 55071-3) Abnormal [facility] SMPTLH6912-58-74 23:49:00* Test Item Value Reference Range Interpretation Comme nts BENZO U (test code = 7352577865) Presumptive Positive Negative A ARNOLD U (test code = 4143851204) Negative Negative AMPHET (test code = 5030856938) Negative Negative THC (test code = 8491240137) Negative Negative METHADONE (test code = 0415776786) Negative Negative Meth U (test code = 4843782920) Negative Negative OPIATES (test code = 1795803205) Negative Negative Cocaine Metabolite (test code = 4444315192) Negative Negative PROPOXY (test code = 9071227265) Negative Negative Tric U (test code = 9901364323) Negative Negative PCP (test code = 4909705787) Negative Negative OXYCOD (test code = 1442639470) Negative Negative YAMIL (test code = YAMIL) [...] legal testing). Lab Interpretation (test code = 69657-4) Abnormal [facility] WITH JCYWHEMMVQRR2932-20-14 23:34:00* Test Item Value Reference Range Interpretation Comme nts WBC (test code = 6690-2) See_Comment H [Automated messa ge] The system which generated [...] 34.0 g/dL 31.6-35.1 RDW-SD (test code = 94682-1) 42.4 fL 39-49.9 RDW-CV (test code = 788-0) 13.0 % 12-15.5 PLT (test code = 777-3) See_Comment [Automated messa ge] The system which generated this result transmitted reference range: 166 - 358 10*3/?L. The reference range was not used to interpret this result as normal/abnormal. MPV (test code = 11699-2) 9.7 fL 9.5-12.9 NRBC/100 WBC (test code = 3590678558) See_Comment [Automated [employer]age] The system which generated this result transmitted reference range: 0.0 - 10.0 /100 WBCs. The reference range was not used to interpret this result as normal/abnormal. NRBC x10^3 (test code = 5372724734) <0.01 See_Comment [Automated messa ge] The system which generated this result transmitted reference range: 10*3/?L. The reference range was not used to interpret this result as normal/abnormal. GRAN MAT (NEUT) % (test code = 770-8) 72.0 % IMM GRAN % (test code = 6842408226) 0.40 % LYMPH % (test code = 736-9) 21.6 % MONO % (test code = 5905-5) 3.9 % EOS % (test code = 713-8) 1.8 % BASO % (test code = 706-2) 0.3 % GRAN MAT x10^3(ANC) (test code = 3802185331) 8.22 10*3/uL 1.88-7.09 H IMM GRAN x10^3 (test code = 9896839043) 0.05 10*3/uL 0-0.06 LYMPH x10^3 (test code = 731-0) 2.47 10*3/uL 1.32-3.29 MONO x10^3 (test code = 742-7) 0.45 10*3/uL 0.33-0.92 EOS x10^3 (test code = 711-2) 0.20 10*3/uL 0.03-0.39 BASO x10^3 (test code = 704-7) 0.03 10*3/uL 0.01-0.07 Lab Interpretation (test code = 77201-4) [facility]normal [facility], Rkgm0473-80-33 14:45:00* Test Item Value Reference Range Interpretation Comme nts RPR (test code = RPR) Non-Reactive Non-Reactive N Thyroid Stimulating Hormone (TSH)2017-12-30 07:29:00* Test Item Value Reference Range Interpretation Comme nts TSH (test code = TSH) 2.42 mIU/mL 0.270-4.200 N BHCG, Serum, Ivsghyohwmjk1797-76-83 07:29:00* Test Item Value Reference Range Interpretation Comme nts B hCG, Quant (test code = BHCGQT) <1 mIU/mL Weeks of Gestati on Ranges (mIU/mL)3 weeks 5.40 - 72.04 weeks 10.2 - 7085 weeks 217 - 11449 weeks 152 - 588821 weeks 4059 - 8719848 weeks 05667 - 2627366 weeks 79747 - 70324665 weeks 99785 - 43454756 weeks 64141 - 72531434 weeks 46529 - 6812439 weeks 14843 - 5396442 weeks 7004 - 1423478 weeks 5140 - 5351446 weeks 7119 - 85965 Lipid Cenouoe4996-50-12 07:19:00* Test Item Value Reference Range Interpretation Comme nts Cholesterol (test code = CHOL) 132 mg/dL 0-200 N Triglycerides (test code = TRIG) 122 mg/dL 9-200 N HDL (test code = HDL) 21 mg/dL 50-60 L Chol/HDL (test code = CHOLPHDL) 6.3 Ratio 0.0-4.4 H LDL, Calculated (test code = LDLC) 87 0-130 N (NOTE)RISK OF HEART DISEASEPublished by Cypriot Heart AssociationAnalyte Optimal Boderline Increased RiskCHOL <200 200-239 >240TRIG <150 150-199 >200HDL Male: >60 <40HDL Female: >60 <50LDL <100 130-159 >160LDL NEAR OPTIMAL IS 100-129 VLDL (test code = VLDL) 24 mg/dL 5-40 N LDL/HDL (test code = LDLPHDL) 4 BCN37141-35-55 04:24:00* Test Item Value Reference Range Interpretation [...] code = THC) POSITIVE Negative A Urinalysis Ilgdlgto3729-48-81 03:47:00* Test Item Value Reference Range Interpretation Comme nts Color (test code = COLOR) [place] Yellow,Straw,Pl yellow A The value Harvey originally released by [employer] on 12/30/2017 03:42 waschanged to [place] by [employer] on 12/30/2017 03:47 Clarity (test code = CLAR) Sl Cloudy Clear A The value Clear originally released by [employer] on 12/30/2017 03:42 waschanged to Sl Cloudy by [employer] on 12/30/2017 03:47 Specific [place] (test code = SPGR) 1.006 1.001-1.035 N [...] code = BACT) Few /HPF Comprehensive Metabolic Oknuk3864-00-84 01:00:00* Test Item Value Reference Range Interpretation [...] race is not provided, and the patient isAfrican-Cypriot, multiply by 1.212. If sex is not [...] by the National Kidney Foundation,http://nkdep .nih.gov Alcohol/Ethanol, Uasfn1742-06-78 01:00:00* Test Item Value Reference Range Interpretation Comme nts Alcohol, Ethyl (test code = ETOH) <0.01 g/dL 0.00-0.01 N Intoxicated 0 .080 g/dL or more CBC with Yvstqrobytwg8445-20-79 00:45:00* Test Item Value Reference Range Interpretation [...] code = ALYMPH) 3.8 K/cumm 0.5-4.6 N Parke Abs (test code = AMONO) 0.5 K/cumm 0.0-1.2 N Eos Abs (test code = AEOS) 1.24 K/cumm 0.00-0.74 H Baso Abs (test code = ABASO) 0.1 K/cumm 0.00-0.21 N Notes Date/Time Note Provider Source 2023-11-14 15:04:00 IAOPcutRV4lUNOguH7g7 X33cbFBQk6uSrg E9xrzvffS+aVliTMjGXqqDb0TO9HfO0361 -01-13T15:04:00 Regardiny/f pt calling states she's been having visions, says someone is going to take kids from her----- Message from Roxanne Perla sent at 11/14/2023 3:02 PM SCRIPT DEVELOPER -----Martine Lentz is a 43 year old femalestates she is an addict, and is crying 06766-6Razaivizq encounter IjsnNB9507-71-15D94:04:15Telephone encounter NoteTXT1.2.840.819074.1.13.104.2.7 .2.651546|5982057397ZTUycxcqavs for patient noxc26324-5HrsnHGPSNFFJGIXXkpuxazw d C-CDA narrative aqmh914245071Ktrzm Cabello RN[address] KrkdZxykuszuqEythlwqooBUDD77572256 28TCKAYKFTHFZHTEDBXWNZCT7702-83-54 T15:04:151.2.840.576121.1.72.3.15| 1.2.840.172885.1.13.104.2.7.2.7278 79_[id number] Alisa Spann RN [facility] 2023-11-14 15:04:00 RraDp5gGUMoHwzJPtday WkG/DT9x7PRQcB MboQVa809ltKuZTq1V14cbu406EM1I0827 -11-14T15:04:00 Adult Triage AssessmentLast Clinic Visit: 05/01/23, ER, [...] vent in the hospital, her mom , director fundraising keep coming to her home, people are [...] (e.g., friend or family member) availableProtocols used: Gpizjdqqijzqd-EXVKL-CXUmtplnshqbss ly signed by Alisa Spann RN at 11/14/2023 3:49 PM JAH55631-5Nlnjccuaq encounter FzxgMM2403-54-91U86:49:32Telephone encounter NoteTXT1.2.840.955751.1.13.104.2.7 .2.191819|8305390089GPLxzxurtrh for patient lxkv29499-6LgedYEKEBYZLTHQQohdfqqn d C-CDA narrative [address] UstvYxckwkmzlZejjabraqHMNU73434329 37ZKXTVBAWKETMCXFZUKQCAD6346-65-65 T15:49:321.2.840.119585.1.72.3.15| 1.2.840.509465.1.13.104.2.7.2.7278 79_561 [facility] 2020-09-26 14:55:00 QPveuowbqwl91366747s dlR9uOEXqqU+Rw Z2z35uVnVNCj3Z93TyQ3Xl+UFKy/S2vt3M fwDMq3Y2tr3B+dF5490-32-80A22:55:00 [phone] [facility] [address] [address] PATIENT NAME: MARTINE LENTZ ADMIT DATE: 09/13/20ACCOUNT NO: [id number] ROOM NO: .2019 AGE: 40 SEX: F [...] Dictated By: Sherman Collazo III, MD WT: DS:KAM/HOLLY/AYAKADD: 09/26/2020 14:55:08DT: 09/26/2020 18:10:05Conf#: [id number]/DID#: [id number] PATIENT NAME: MARTINE LENTZ Authenticated and Edited by Shreman Collazo MD On 09/29/20 4:16:09 PM at 1618 PATIENT NAME: MARTINE LENTZ uqruhls5458-94-28Y14:10:00F.SCQ747 75659-1364BRAwpwtwuiu for patient azmuNYRETGAASZKYDX8536-81-57B72:18 :18 [facility] 2020-09-16 09:10:00 TDdpiugosde44887755Q jBoEVl0e6Tobxp 8S2tm8NGvhufDgJZy5diRjiDrrbha45Oq+ 6f2sz2AIii0zUuR2270-42-49I72:10:00 [facility] ([facility]OB Postpart Progr NoteREPORT#:[id number] REPORT STATUS: SignedDATE:09/16/20 TIME: 09 PATIENT: MARTINE LENTZ UNIT #: [id number]#: [id number] ROOM/BED: ADOB: [birth year] AGE: 40 SEX: F ATTEND: Sherman Collazo III [facility] AUTHOR: Jo Ann Martinez MD * ALL [...] The pt states she had P[facility] at [facility], but then stopped going. She doesn't like thembecause of the morphine issue. She states she was going to breast feed, but theyasked her to set an alarm every 2 hours, but her phone is . She can't call home because all calls are long distance, and her room phone won't allow it. When I offered to find her a dominatrix for her phone, she said no it's [...] 135-145/65-78 Last Documented: Result Date Time B/P 145/65 09/16 423 Temp 98.5 09/16 423 Pulse 69 09/16 423 Resp 18 09/16 423 B/P Mean 94.0 09/14 603 Pulse Ox 97 09/14 603 Patient Weight Weight (lb): 200Weight (oz): Weight [...] pt wants to leave AMA.Consultation(s): Consultation performed: mental health social worker (per nurse, they saw her alread) at 0937 RPT #:[id number] OF REPORT PRProgress Tmoz9928-65-05J90:10:00F.NGNN63384 115-0089AVAvailable for patient hcrbYJIOVSDFAMEYES3918-25-30S90:38 :01 [facility] 2020-09-15 12:33:00 XDayvavjwkm62341530+ AjYblspwQRk5H3 fM3JAa+l3dLt7fUejPL71Cy1cPyhwCso/b dOTY3hjdvVsLvJy8846-13-79K53:33:00 [facility] ([facility])OB Postpart Progr NoteREPORT#:[id number] REPORT STATUS: SignedDATE:09/15/20 TIME: 1233 PATIENT: MARTINE LENTZ UNIT #: [id number]#: [id number] ROOM/BED: 2018-ADOB: [birth year] AGE: 40 SEX: F ATTEND: Sherman Collazo III MDADM AUTHOR: Nael Carter MD * ALL edits [...] % (Auto) (14.3 - 34.3 %) 19.0 Parke % (Auto) (5.1 - 10.4 %) 3.7 L Eos % (Auto) (0.1 - 3.0 %) 0.9 Baso % (Auto) (0.1 - 1.0 %) 0.2 Neut # (Auto) (K/mm3) 13.3 Lymph # (Auto) (K/mm3) 3.3 Parke # (Auto) (K/mm3) 0.7 Eos # (Auto) (K/mm3) 0.15 Baso # (Auto) (K/mm3) 0.0 Diagnosis, Assessment Plan Diagnosis, Assessment PlanFree text A P:40 yo s/p Repeat c/s POD #1Assessment: nml progressPlan: routine care, discharge tomorrowConsultation(s): Consultation performed: pharmacist repain choices for pain mediction plan to use Toradol IM q6hr and tramadol po q6hrs change to po toradol tomorrow possibledc home tomorrow at 1245 RUST #:[id number] OF REPORT PRProgress Xudd0065-63-45M04:33:00F.EBKE17465 114-0226AVAvailable for patient sipsOHDHERRCQDORRN9147-95-17N66:45 :26 [facility] 2020-09-14 13:34:00 SPnctpawntk86967592i 3JqoGIq2EPxJmV /dNMzsxKHkOE3AsqEeD1L48QfUqcI/yHt/ o4fjPFdeoQmJbE50781-71-87K71:34:00 [facility] ([facility])Clinical NoteREPORT#:[id number] REPORT STATUS: SignedDATE:09/14/20 TIME: 1334 PATIENT: MARTINE LENTZ UNIT #: [id number]#: [id number] ROOM/BED: ADOB: [birth year] AGE: 40 SEX: F ATTEND: Sherman Collazo III [facility] AUTHOR: Jo Ann Martinez MD * ALL [...] (Auto) (14.3 - 34.3 %) 12.9 L Parke % (Auto) (5.1 - 10.4 %) 4.4 L Eos % (Auto) (0.1 - 3.0 %) 1.0 Baso % (Auto) (0.1 - 1.0 %) 0.2 Neut # (Auto) (K/mm3) 16.9 Lymph # (Auto) (K/mm3) 2.7 Parke # (Auto) (K/mm3) 0.9 Eos # (Auto) (K/mm3) 0.21 Baso # (Auto) (K/mm3) 0.1Serology Treponema pallidum Ab (NONREACTIVE) NONREACTIVE Hep Bs Antigen (NONREACTIVE) NONREACTIVE Hepatitis C Antibody (NONREACTIVE) NONREACTIVE Hep C Ab Signal/Cutoff (<0.80) 0.10 HIV 1 2 Antibody (NONREACTIVE) NONREACTIVE SARS-CoV-2 Ag (Rapid) (NEGATIVE) NEGATIVE A/P POD 0, doing wellwill restart medsnot breast feedinglabs reviewedwill check rubella status at 1338 RPT #:[id number] OF REPORT CLClinical yfgc4393-20-78M75:34:00F.SCLB59566 113-0278AVAvailable for patient kxgxVFKUUUALLAEGDU2963-97-28R53:38 :50 [facility] 2020-09-14 01:44:00 KZcabzqoyhr90718170Q l4HMF3wqBZuwqj geDvBLvSK321GQos9RrVNVU2YnV3zM67Bo bZbvQV3PwW4mpcb4028-96-57W76:44:00 [facility] ([facility])Clinical NoteREPORT#:[id number] REPORT STATUS: SignedDATE:09/14/20 TIME: 014 PATIENT: MARTINE LENTZ UNIT #: [id number]#: [id number] ROOM/BED: [facility]-ADOB: [birth year] AGE: 40 SEX: F ATTEND: Sherman Collazo III AUTHOR: Sherman Collazo III, MD * ALL edits or amendments must be made on the electronic/computer document * Clinical NoteNote:TUB CHUCKER Hospitalist Zay To meet the standard of care, there was a need for a surgical garment fitter on this patient's c/section. There were no medical students, residents or any other surgical assistantsavailable to assist. I was present as the only surgical garment fitter for the entire procedurefrom start to finish. jr at 0148 RPT #:[id number] OF REPORT CLClinical jjsd7222-54-78C27:44:00F.WRPV25323 113-0011AVAvailable for patient dcadRZHIZHFEQXPXGC5386-51-24S89:48 :43 [facility] 2020-09-14 00:19:00 KXvfbtwylel06582644o FC5bxSeOzRqaSC p/fOlIt5Wb7OMAOhmpNkDcIwqwNKlPhO2L DG1pr44O5Y02l9L7683-51-21Z06:19:00 [facility] ([facility])Full Op NoteREPORT#:[id number] REPORT STATUS: SignedDATE:09/14/20 TIME: 18 PATIENT: MARTINE LENTZ UNIT #: [id number]#: [id number] ROOM/BED: [facility]-ADOB: [birth year] AGE: 40 SEX: F ATTEND: Sherman Collazo III MDADEJUAN AUTHOR: Nael Carter MD * ALL edits or amendments must be made on the electronic/computer document * Operative ReportStart date: 09/14/20tart time: 104Pre-procedure diagnosis:39 weeksprevious c/s in laborPost-procedure diagnosis:39 weeksprevious c/s in laborProcedures performed:repeat sectionTechnique/Procedure:Tamra lynn Surgeon: Lichat(s): santana collazoAnesthesia: spinal anestheticOperative findings:normal [...] incision with mild fundal pressure by the admissions assistant. The baby is delivered easilyThe cord is clamped and cut. The vigorous and viable infant has good cry, color, tone, grimace and [...] the PACU in good condition. at 0314 RUST #:[id number] OF REPORT OPOperative jruhtl5273-60-85R10:19:00F.LTKP792 43682-4358GUZjamrdjda for patient csojJICXJNQLRNKLVA5038-92-03S44:15 :06 [facility] 2020-09-14 00:01:00 LVscaamlnrr44999297l xwDt+AbZjspPjo 7qs7L1lZKS1wbUzYql75osegrPhFB/k7Y+ bczyaXQvYdOo1XM5498-75-55Y08:01:00 [facility] H PREPORT#:[id number] REPORT STATUS: SignedDATE:09/14/20 TIME: 2023 PATIENT: MARTINE LENTZ UNIT #: [id number]#: [id number] ROOM/BED: [facility]-ADOB: [birth year] AGE: 40 SEX: F ATTEND: Sherman Collazo III [facility] AUTHOR: Nael Carter MD * ALL edits or amendments must be made on the electronic/computer document * OB HistoryChief complaint: uterine contractions (previous )HPI:40 yo at 39 weeks with regular uterine contractionsprevious c/s for herpes outbreak 2012[place] A[place] reaction to morphine [...] (Auto) (14.3 - 34.3 %) 12.9 L Parke % (Auto) (5.1 - 10.4 %) 4.4 L Eos % (Auto) (0.1 - 3.0 %) 1.0 Baso % (Auto) (0.1 - 1.0 %) 0.2 Neut # (Auto) (K/mm3) 16.9 Lymph # (Auto) (K/mm3) 2.7 Parke # (Auto) (K/mm3) 0.9 Eos # (Auto) (K/mm3) 0.21 Baso # (Auto) (K/mm3) 0.1 Serology SARS-CoV-2 Ag (Rapid) (NEGATIVE) NEGATIVE Diagnosis, Assessment Plan Diagnosis, Assessment PlanAssessment/Impression: previous C/S, in labor (39 weeks), normal FHR pattern, reactive NSTPlan: admit to inpatient, , delivery at 0212 RUST #:[id number] OF REPORT HPHistory and physical eyhecpwrroh8254-84-11G83:01:00F.PD UW38127321-2749IXKkbxrcmhi for patient asccRKAMNRQEDGRMWF5990-91-20F29:12 :23 [facility] 2018-01-24 21:35:56 4877148769mAO6C3mquw 1pWQc1odGeY4B6 LN/jrWgf1Znezfzbfze6M2w+8c5BXfMoD0 R9UchO4431-61-20A11:35:56 [facility] Discharge SummaryPATIENT NAME: MARTINE LENTZ PHYSICIAN: Liz Reid MD Admitted: MR NUMBER: [id number] DISCHARGED: 12/31/2017 02:01:00 REASON FOR ADMISSION:Martine Lentz is a 37-year-old female with a past psychiatric history, major depressive disorder, generalized anxiety disorder, and panic disorder, who presented to [facility] voluntarily for worsening depression and distressing auditory [...] delusional that writers from social media and [employer] put "black magic" on her a couple [...] writers on social media who she cannot [facility] Discharge SummaryPATIENT NAME: MARTINE LENTZ PHYSICIAN: Liz Reid MD Admitted: MR NUMBER: [id number] DISCHARGED: 12/31/2017 02:01:00 REASON FOR ADMISSION:Martine Lentz is a 37-year-old female with a past psychiatric history, major depressive disorder, generalized anxiety disorder, and panic disorder, who presented to [facility] voluntarily for worsening depression and distressing auditory [...] delusional that writers from social media and [employer] put "black magic" on her a couple [...] writers on social media who she cannot [facility] Discharge Summaryidentify. She was much more forthcoming [...] home continue her psychotropic medications, followup with [facility]iat[facility] and start therapy.MENTAL STATUS EXAM ON [...] to stay focused throughout the interview.GAIT:Normal.LABORATORY DATA: [facility] Discharge Summaryidentify. She was much more forthcoming [...] home continue her psychotropic medications, followup with [facility]iatry and start therapy.MENTAL STATUS EXAM ON [...] to stay focused throughout the interview.GAIT:Normal.LABORATORY DATA: [facility] Discharge SummarySerum less than 1. Lipid profile, [...] appointment. She was also given resources for [facility] for therapy.DISPOSITION:Martine Lentz is currently stable [...] The patient has also met with her social problems specialist to obtain the appropriate followup paperwork depends upon through this plan has been reviewed with the patient with the understanding that compliance will be crucial to her recovery. She has been given the [facility] crisis hotline, which is and the information about [facility] if she wishes to be in therapy.Liz Reid MD [facility] Discharge SummarySerum less than 1. Lipid profile, [...] appointment. She was also given resources for [facility] for therapy.DISPOSITION:Martine Lentz is currently stable [...] The patient has also met with her social problems specialist to obtain the appropriate followup paperwork depends upon through this plan has been reviewed with the patient with the understanding that compliance will be crucial to her recovery. She has been given the [facility] crisis hotline, which is and the information about [facility] if she wishes to be in therapy.Liz Reid MD [facility] Discharge SummaryNorma Zhang [facility] 01/10/2018 21:30TD: 01/10/2018 23:37Job #: [id number]:Norma Zhang MD Electronically Authenticated and Edited by:Liz Reid MD On 01/24/2018 09:35 PM CDT [facility] Discharge SummaryNorma Zhang [facility]: 01/10/2018 21:30TD: 01/10/2018 23:37Job #: [id number]:Norma Zhang MD Electronically Authenticated and Edited by:Liz Reid MD On 01/24/2018 09:35 PM CDTElectronically Authenticated by:Norma Zhang MD On 01/26/2018 01:31 PM CDTDSDischarge ggfoysg888816643VZSotoxumnk for patient eqsvANWUNVNIUMHY3985-00-02S60:35:5 6 [facility] 2018 12:05:40 [id number] M+fxkizfLUpd65 8NJDSjvo30l940l/3AoCEK3Zv13c3RX24b JkwToJ2391-87-19C87:05:40 [facility] Psych EvalPATIENT NAME: MARTINE LNETZ PHYSICIAN: Liz Reid MD Admitted: MR NUMBER: [id number] DISCHARGED: Psych EvalPatient Name: MARTINE LENTZ Date ofService: Date of : 1980Clinician: Liz Reid MD User Field 1: JEncounter Visit: [facility] User Field 3: Carmina Zhang [facility]:DATE OF ADMISSION: 12/29/2017ATTENDING PHYSICIAN:Norma Zhang MDTIME OF PSYCHIATRIC EVALUATION:12/30/2017 at 8:30 a.m.INFORMANTS:The patient, [place] medical record.CHIEF COMPLAINT:"I need help for these voices."HISTORY OF PRESENT ILLNESS:Martine Lentz is a 37-year-old female with a past psychiatric history of major depressive disorder, generalized anxiety disorder, panic disorder, and opioid use disorder, who came into [facility] voluntarily for worsening depression and distressing auditory hallucinations. She has had one psychiatric hospitalization here and was discharged from [facility] in March 2013. She reports that she was doing okay and off all her medications until 1 year ago when callie committed suicide. Since then she started feeling very depressed. [place]arsh[place] depression continued, she started hearing voices of [...] distressing that she quit her job at [employer]. She has also been having delusions for [...] for this depression and these voices 2 [facility] Psych EvalPATIENT NAME: MARTINE LENTZ PHYSICIAN: Liz Reid MD Admitted: MR NUMBER: [id number] DISCHARGED: Psych EvalPatient Name: MARTINE LENTZ Date ofService: Date of : 1980Clinician: Liz Reid MD User Field 1: Rosalinda Visit: CONCEPCION User Field 3: Carmina Zhang [facility]:DATE OF ADMISSION: 12/29/2017ATTENDING PHYSICIAN:Norma Zhang MDTIME OF PSYCHIATRIC EVALUATION:12/30/2017 at 8:30 a.m.INFORMANTS:The patient, [place] medical record.CHIEF COMPLAINT:"I need help for these voices."HISTORY OF PRESENT ILLNESS:Martine Lentz is a 37-year-old female with a past psychiatric history of major depressive disorder, generalized anxiety disorder, panic disorder, and opioid use disorder, who came into [facility] voluntarily for worsening depression and distressing auditory hallucinations. She has had one psychiatric hospitalization here and was discharged from [facility] in March 2013. She reports that she was doing okay and off all her medications until 1 year ago when callie committed suicide. Since then she started feeling very depressed. [place] depression continued, she started hearing voices of [...] distressing that she quit her job at [employer]. She has also been having delusions for [...] HISTORY:The patient has had one hospitalization at [facility]. She was discharged from [facility] in March 2013. At that time, she [...] HISTORY:The patient has had one hospitalization at [facility]. She was discharged from [facility] in March 2013. At that time, she [...] mom. She was last employed at the [employer], but stopped working because of the voices. [...] mom. She was last employed at the [employer], but stopped working because of the voices. [...] disorder, and panic disorder, who presented to [facility] voluntarily for worsening depression and distressing auditory [...] also has a delusion that writers from [employer] and [employer] put "black magic" on her a couple [...] disorder, and panic disorder, who presented to [facility] voluntarily for worsening depression and distressing auditory [...] delusion that writers from [employer] put "black magic" on her a couple [...] admitted to Dr. Zhang's service on the [facility] Unit and placed on suicide, elopement, [...] the treatment team.Franklin Emerson, MDDate Dictated: 12/30/2017Date 12/30/2017Transcribed:HENOK/CLAYTON/RAN/D EEJob #: [id number]:Norma Zhang MD Electronically Authenticated and Edited by:Liz [...] admitted to Dr. Zhang's service on the [facility] Inpatient Unit and placed on suicide, elopement, [...] the treatment team.Franklin Emerson, MDDate Dictated: 12/30/2017Date 12/30/2017Transcribed:HENOK/CLAYTON/RAN/D EEJob #: [id number]:Norma Zhang MD Electronically Authenticated and Edited by:Liz Reid MD On 2018 12:05 PM CDTElectronically Authenticated by:Norma Zhang MD On 02/09/2018 04:15 PM [id number] for patient [id number] 0 [facility]
--- NOTE | 2024-03-09 18:42 | EDPHYS ---
Physician Documentation [facility] Name: Miriam Fried Age: 44 yrs Sex: Female : 1980 Arrival Date: 03/09/2024 Time: 18:24 Bed 10 Private MD: ED Physician Tye Valencia HPI: 03/09 19:45 This 44 yrs old Female presents to ER via Ambulatory with complaints of Abscess. kb 19:45 Pt is a 44 year old female who presents for pain to right ear. States she feels a bump kb in her ear and is concerned that she has a tick in there. States her friend had a tick and got ill so she is concerned that will happen to her. Historical: - Allergies: 18:43 Bactrim DS; ph 18:43 Morphine; ph 18:43 PENICILLINS; ph - Home Meds: 18:43 Adderall oral [Active]; aripiprazole oral [Active]; gabapentin oral [Active]; ph - PMHx: 18:43 ADD/ADHD; Anxiety; Depression; depressive disorder; Heart Arrythmia; PTSD; ph - Immunization history:: Adult Immunizations unknown. - Infectious Disease History:: Denies. - Social history:: Smoking status: unknown. ROS: 19:44 Constitutional: As per HPI kb Exam: 19:44 Constitutional: This is a well developed, well nourished patient who is awake, alert, kb and in no acute distress. Head/Face: Normocephalic, atraumatic. Cardiovascular: Regular rate Respiratory: Respirations even and unlabored. No increased work of breathing. Talking in full sentences Abdomen/GI: Soft, non-tender. No distention Skin: Warm, dry with normal turgor. Normal color. MS/ Extremity: Pulses equal, no cyanosis. Neurovascular intact. Full, normal range of motion. Neuro: Awake and alert, GCS 15, oriented to person, place, time, and situation. Moves all extremities. Normal gait. 19:44 ENT: External ear(s): are unremarkable, Ear canal(s): purulent discharge, that is minimal, in the right canal, swelling, that is minimal, that is moderate, of the right canal, TM's: are normal, Examination of the other ear shows no obvious abnormality, Vital Signs: 18:42 BP 147 / 92; Pulse 89; Resp 18; Temp 98.2; Pulse Ox 97% on R/A; Weight 68.04 kg; Height ph 5 ft. 4 in. ; 18:42 Body Mass Index 25.75 (68.04 kg, 162.56 cm) ph MDM: 18:35 Patient medically screened. kb 19:44 Differential diagnosis: abscess, insect bite, otitis externa. Data reviewed: vital kb signs, nurses notes. Counseling: I had a detailed discussion with the patient and/or guardian regarding the historical points, exam findings, and any diagnostic results supporting the discharge/admit diagnosis, the need for outpatient follow up, an ENT specialist, a family practitioner, to return to the emergency department if symptoms worsen or persist or if there are any questions or concerns that arise at home. Administered Medications: No medications were administered Disposition Summary: 03/09/24 18:41 Discharge Ordered Notes: Location: Home kb Condition: Stable kb Diagnosis - Unspecified otitis externa, right ear kb Followup: kb - With: Emergency Department - When: As needed - Reason: Worsening of condition Followup: kb - With: Private Physician - When: 2 - 3 days - Reason: Recheck today's complaints, Continuance of care, Re-evaluation by your physician Discharge Instructions: - Discharge Summary Sheet kb - Otitis Externa, [id number] kb - Ear Drops, Adult, [id number] kb Forms: - Medication Reconciliation Form kb - Antibiotic Education kb - Prescription Opioid Use kb - Patient Portal Instructions kb - Leadership Thank You Letter kb Prescriptions: - Ciprodex 0.3-0.1 % Otic drops, suspension - instill 4 drops OTIC route every 12 hours for 7 days , for ears ONLY; 1 unit; kb Refills: 0, Product Selection Permitted Addendum: 03/10/2024 19:59 Co-signature as Attending Physician, Tye Valencia MD I reviewed the patient's care r t provided by the Advanced Practice Provider and agree with the diagnosis and treatment plan. Signatures: Mikayla English FNP-C FNP-Shannon Garcia, RN RN ph Tye Valencia MD MD rt
--- NOTE | 2024-03-09 18:47 | ER ---
Nurse's Notes [facility] Name: Miriam Fried Age: 44 yrs Sex: Female : 1980 Arrival Date: 03/09/2024 Time: 18:24 Bed 10 Private MD: Diagnosis: Unspecified otitis externa, right ear Presentation: 03/09 18:42 Chief complaint: Patient states: Pain to R ear, states, "It feels like there's a pimple ph or something in there.". Coronavirus screen: Vaccine status: Patient reports receiving the 2nd dose of the covid vaccine. Ebola Screen: No symptoms or risks identified at this time. Initial Sepsis Screen: Does the patient meet any 2 criteria? No. Patient's initial sepsis screen is negative. Does the patient have a suspected source of infection? No. Patient's initial sepsis screen is negative. Risk Assessment: Do you want to hurt yourself or someone else? Patient reports no desire to harm self or others. Onset of symptoms was March 09, 2024. 18:42 Method Of Arrival: Ambulatory ph 18:42 Acuity: REGINA 4 ph Triage Assessment: 18:46 General: Appears in no apparent distress. Behavior is cooperative, anxious. EENT: ph Reports pain in right ear. Historical: - Allergies: 18:43 Bactrim DS; ph 18:43 Morphine; ph 18:43 PENICILLINS; ph - Home Meds: 18:43 Adderall oral [Active]; aripiprazole oral [Active]; gabapentin oral [Active]; ph - PMHx: 18:43 ADD/ADHD; Anxiety; Depression; depressive disorder; Heart Arrythmia; PTSD; ph - Immunization history:: Adult Immunizations unknown. - Infectious Disease History:: Denies. - Social history:: Smoking status: unknown. Screenin:45 [facility] ED Fall Risk Assessment (Adult) History of falling in the last 3 months, ph including since admission No falls in past 3 months (0 pts) Confusion or Disorientation No (0 pts) Intoxicated or Sedated No (0 pts) Impaired Gait No (0 pts) Mobility Assist Device Used No (0 pt) Altered Elimination No (0 pt) Score/Fall Risk Level 0 - 2 = Low Risk Oriented to surroundings, Maintained a safe environment, Hourly rounding (assess needs \\T\\ fall precautionary measures) done. Abuse screen: Denies threats or abuse. Denies injuries from another. Nutritional screening: No deficits noted. Tuberculosis screening: No symptoms or risk factors identified. Assessment: 18:44 General: Appears in no apparent distress. Behavior is anxious. Pain: Complains of pain ph in right ear. Neuro: Level of Consciousness is awake, alert, obeys commands, Oriented to person, place, time, situation. EENT: Reports pain in right ear. Vital Signs: 18:42 BP 147 / 92; Pulse 89; Resp 18; Temp 98.2; Pulse Ox 97% on R/A; Weight 68.04 kg; Height ph 5 ft. 4 in. ; 18:42 Body Mass Index 25.75 (68.04 kg, 162.56 cm) ph ED Course: 18:25 Patient arrived in ED. rg4 18:34 Mikayla English FNP-C is [facility]. kb 18:34 Tye Valencia MD is Attending Physician. kb 18:42 Shannon Glynn, RN is Primary Nurse. ph 18:43 Triage completed. ph 18:44 Arm band placed on Patient placed in an exam room. ph 18:45 Patient has correct armband on for positive identification. Bed in low position. Call ph light in reach. Door closed. Noise minimized. 18:45 No provider procedures requiring assistance completed. Patient did not have IV access ph during this emergency room visit. Administered Medications: No medications were administered Medication: 18:45 VIS not applicable for this client. ph Outcome: 18:41 Discharge ordered by MD. kb 18:46 Discharged to home ambulatory, ph 18:46 Condition: good 18:46 Discharge instructions given to patient, Instructed on discharge instructions, follow up and referral plans. medication usage, Demonstrated understanding of instructions, follow-up care, medications, Prescriptions given X 1, 18:46 Patient left the ED. ph Signatures: Mikayla English FNP-C FNP-Ckb Hall, Patricia RN RN Sindy Henderson rg4
[2024-03-09 18:58] VITALS: BP 147/92; TEMP 98.2; O2SAT 97
== END 2024-03-09 18:46 | disposition home or self-care (01) ==
LOC: ER 18:24
DX: H60.91 Unspecified otitis externa, right ear (principal)

== ENCOUNTER 2024-12-12 23:28 | Emergency (ER) | payer SELFPAY ==
--- OUTSIDE RECORDS SUMMARY | 2024-12-12 23:34 | XMS REPORT | Continuity of Care Document ---
Author Name Unknown Address [address] [facility] [address] [place] [address] [facility] Address [address] [facility] [address] [place] [address] Care Team Providers Care Mission Analyst Name Role Phone UNKNOWN, REFFERING Primary Care Physician Sherman Espinosa Attending Clinician Unavailable Rj Diez Attending Clinician Unavailab Rj Hardwick Attending Clinician Unavailab CRISTOBAL Nagy Attending Clinician Unavailable CRISTOBAL NINO Attending Clinician Unavailable Oswaldo Davis MD Attending Clinician [phone] OSWALDO DAVIS Attending Clinician UnavailOSWALDO Del Rosario Attending Clinician UnavailMARI Carson Attending Clinician Unavailable Mari Herndon MD Attending Clinician [phone] BRIGITTE RIVERO Attending Clinician Unavailab Brigitte Strickland Attending Clinician + [phone] Alisa Spann RN Attending Clinician Unavailangelica e GC_GCBZW_Kadiyala_S Attending Clinician Unavaila JYOTI Pavon Attending Clinician Unavailable SEPIDEH PALMER Attending Clinician Unavailab Sepideh Martini DO Attending Clinician MIGUEL A NATH Attending Clinician Unavailable Miguel A Nath MD Attending Clinician [phone] Doctor Unassigned, [place] Attending Clinician U GAGE Bowden Attending Clinician Unavailable Felipe SMILEY, Gage Holloway Attending Clinician [phone] Ultrasound, [facility] Attending Clinician Unavailchino Campos MD, Cheikh Zamudio Attending Clinician [phone] Fellow, [facility] Attending Clinician Un available Hussein SMILEY, Morro Hoover Attending Clinician +[phone] Ellis SMILEY, Olga Lidia Smith Attending Clinician + [phone] Sanjana Sierra PA-C Attending Clinician [phone] Edson Emanuel Attending Clinician + Edson CHAMBERS Attending Clinician Unavailable Faculty, [facility] Attending Clinician Unamaxx Mark MD, Porter Bar Attending Clinician [phone] NORMA SIMONS M.D., NORMA Smith M.D. Attendin g Clinician Unavailable GAGE REID Admitting Clinician Unavailable hSerman Collazo Admitting Clinician Unavailable Rj Diez Admitting Clinician Unavailab matthew [email or web address]_S Admitting Clinician Unavailchino Reid MD, Gage Holloway Admitting Clinician [phone] NORMA SIMONS M.D., NORMA Smith Admitting Clin ician Unavailable Payers Payer Name Policy Type Policy Number Effective Date Expirati on Date Source [employer] MEDICAID [id number] 2020 00:00:00 [facility] [id number] 00:00:00 [facility] [id number] MEDICAID OF [place] [id number] 2020-02-01 00:00:00 Problems Condition Name Condition Details Condition Category Status Onset Date Resolution Date Last Treatment Date Treating Clinician Comments Source 39 weeks gestation of 39 weeks gestation of Disease Active 2019-11 00:00: 00 [facility] QT prolongati on QT prolongati on Disease Active 2019-11 00:00: 00 [facility] Obesity (BMI 30-39.9) Obesity (BMI 30-39.9) Disease Active 2019-11 00:00: 00 [facility] Insufficie nt care in third trimester Insufficie nt care in third trimester Disease Active 2019-11 00:00: 00 [facility] Severe episode of recurrent major depressive disorder, 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, without psychotic features Disease Active 03-15 00:00: 00 [facility] Supervisio n of high risk in third trimester Supervisio n of high risk in third trimester Disease Active 03-15 00:00: 00 [facility] History of cardiac arrest History of cardiac arrest Disease Active 03-15 00:00: 00 [facility] Anxiety disorder, unspecifie d type Anxiety disorder, unspecifie d type Disease Active 03-15 00:00: 00 [facility] History of drug abuse History of drug abuse Disease Active 03-15 00:00: 00 [facility] History of herpes genitalis History of herpes genitalis Disease Active 03-15 00:00: 00 [facility] Previous section Previous section Disease Active 03-15 00:00: 00 [facility] Medication exposure during first trimester of Medication exposure during first trimester of Disease Active 03-15 00:00: 00 [facility] Smoking Smoking Disease Active 03-15 00:00: 00 [facility] Abdominal pain, epigastric Abdominal pain, epigastric Disease Resolve d 2010-0 4-27 00:00: 00 2020-03-15 00:00:00 2020-03-15 11:21:38 [facility] Allergies, Adverse Reactions, Alerts Allergy Name Allergy Type Status Severity Reaction(s) Onset Date Inactive Date Treating Clinician Comments Source PENICILL IN DRUG INGREDI Active Unknown-Cmnt 04-09 00:00: 00 [facility] SULFAMET HOXAZOLE -TRIMETH OPRIM DRUG Active Swelling 6 00:00: 00 [facility] Sulfamet hoxazole -Trimeth oprim Propensi ty to adverse reaction s Active Swelling 04-09 00:00: 00 [facility] Penicill in Propensi ty to adverse reaction s Active Unknown - See comments 04-09 00:00: 00 [facility] morphine DA Active SV 12-22 00:00: 00 [facility] morphine DA Active SV "HEART STOPPED" 12-22 00:00: 00 [facility] MORPHINE DRUG INGREDI Active Unknown-Cmnt 2010-11 00:00: 00 [facility] Morphine Propensi ty to adverse reaction s Active Unknown - See comments 2010-11 00:00: 00 Per patient she went into cardiac arrest after receiving morphine at the hospital March 2011 [facility] morphine Drug Active [facility] morphine Drug Active [facility] morphine Drug Active [facility] morphine Drug Active [facility] morphine Drug Active [facility] morphine Drug Active [facility] morphine Drug Active [facility] morphine Drug Active [facility] morphine Drug Active [facility] morphine Drug Active [facility] morphine Drug Active [facility] morphine Drug Active [facility] morphine Drug Active [facility] Social History Social Habit Start Date Stop Date Quantity Comments Source ASSERTION 2019-12-22 00:00:00 [facility] of tobacco use Cigarette Smoker [facility] Tobacco use and exposure 2024-05-26 00:00:00 2024-05-26 00:00:00 Smokeless tobacco non-user [facility] History of Social function 2024-05-26 00:00:00 2024-05-26 00:00:00 [facility] Alcoholic beverage intake 2024-05-26 00:00:00 2024-05-26 00:00:00 Current drinker of alcohol (finding) [facility] Alcohol intake 2023-05-01 00:00:00 2023-05-01 00:00:00 Current drinker of alcohol (finding) [facility] Exposure to SARS-CoV-2 (event) 2023-01-03 00:00:00 2023-01-13 21:35:00 Not sure [facility] Cigarettes smoked current (pack per day) - Reported 2020-03-15 00:00:00 2020-03-15 00:00:00 [facility] Sex assigned at 1980 00:00:00 1980 00:00:00 [facility] Smoking Status Start Date Stop Date Source Smokes tobacco daily 2024-05-26 00:00:00 [facility] Medications Ordered Medication Name Filled Medication Name Start Date Stop Date Current Medication? Ordering Clinician Indication Dosage Frequency Signature (SIG) Comments Components Source levoFLOXaci n (LEVAQUIN) tablet 750 mg 04-15 19:15: 00 04-15 18:39 :00 No 750mg 750 mg, Oral, ONCE NOW, 1 dose, On Thu04/15/24 at 1415, CHRISTY, Reason for Anti-Infec tive: Documented Infection, Documented Infection Site: Urine, Duration of Therapy: Once (ED) [facility] ALPRAZolam (XANAX) tablet 1 mg 04-15 18:45: 00 04-15 18:39 :00 No 1mg 1 mg, Oral, ONCE, 1 dose, On Thu04/15/24 at 1345, CHRISTY [facility] NaCl 0.9% (NS) bolus infusion 1,000 mL 04-15 17:45: 00 04-15 18:48 :00 No 1000mL at 999 mL/hr, 1,000 mL, IV Piggyback, ONCE, 1 dose, On Thu04/15/24 at 1245, STAT [facility] ciprofloxac in HCl 500 mg tablet 04-15 00:00: 00 04-23 04:59 :00 No [id number] 500mg Take 1 tablet by mouth in the morning and 1 tablet in the evening. Do all this for 7 days. [facility] NaCl 0.9% (NS) bolus infusion 1,000 mL 05-01 19:00: 00 05-01 19:10 :00 No 1000mL at 999 mL/hr, 1,000 mL, IV Infusion, ONCE, 1 dose, On Thu05/01/23 at 1400, [facility] ondansetron (ZOFRAN (PF)) injection 4 mg 05-01 19:00: 00 05-01 18:53 :00 No 4mg 4 mg, Slow IV Push, ONCE, 1 dose, On Thu05/01/23 at 1400, [facility] cefTRIAXone (ROCEPHIN) 1,000 mg in NaCl 0.9% (NS) 100 mL MINI-BAG 05-01 18:15: 00 05-01 18:43 :00 No 1000mg 1,000 mg, IV Piggyback, ONCE, 1 dose, On Thu05/01/23 at 1315, Administer over 30 Minutes, 100 mL
Reas on for Anti-Infec tive: Documented Infection< br>Documen bhavya Infection Site: Urine
D uration of Therapy: 7 days [facility] NaCl 0.9% (NS) bolus infusion 1,000 mL 05-01 17:30: 00 05-01 18:14 :00 No 1000mL at 999 mL/hr, 1,000 mL, IV Infusion, ONCE, 1 dose, On Thu05/01/23 at 1230, [facility] ondansetron 4 mg disintegrat ing tablet 05-01 00:00: 00 Yes [id number] 4mg Take 1 tablet by mouth every 8 (eight) hours as needed for Nausea and Vomiting (N/V). [facility] sulfamethox azole-trime thoprim 800-160 mg per tablet 05-01 00:00: 00 05-07 04:59 :00 No [id number] 1{tbl} Take 1 tablet by mouth every 12 (twelve) hours for 5 days. [facility] risperiDONE 2 mg tablet 2019-11 01:27: 56 Yes 2mg Take 2 mg by mouth daily. [facility] SERTraline (ZOLOFT) 50 mg tablet 2019-11 01:27: 56 Yes 50mg Take 50 mg by mouth daily. [facility] D5W-LR IV infusion 1,000 mL 2019-11 00:45: 00 Yes 1000mL at 125 mL/hr, IV Infusion, CONTINUOUS , Starting Thu09/12/20 at 1845, Until Discontinu ed, Routine [facility] risperiDONE 2 mg tablet 2019-11 19:27: 56 Yes 2mg Take 2 mg by mouth daily. [facility] SERTraline (ZOLOFT) 50 mg tablet 2019-11 19:27: 56 Yes 50mg Take 50 mg by mouth daily. [facility] risperiDONE 2 mg tablet 2019-11 01:35: 11 Yes 2mg Take 2 mg by mouth daily. [facility] SERTraline (ZOLOFT) 50 mg tablet 2019-11 01:35: 11 Yes 50mg Take 50 mg by mouth daily. [facility] D5W-LR IV infusion 1,000 mL 2019-11 00:45: 00 Yes 1000mL at 125 mL/hr, IV Infusion, CONTINUOUS , Starting Thu09/10/20 at 1845, Until Discontinu ed, Routine [facility] PNV 102-iron-fo late 1-dss-dha (VITAFOL FE+, WITH DOCUSATE,) 90 mg iron-1 mg -50 mg-200 mg Cap 03-15 00:00: 00 Yes [id number] Take 1 TAB-CAP/M2 by mouth daily. [facility] PNV 102-iron-fo late 1-dss-dha (VITAFOL FE+, WITH DOCUSATE,) 90 mg iron-1 mg -50 mg-200 mg Cap 03-15 00:00: 00 Yes [id number] Take 1 TAB-CAP/M2 by mouth daily. [facility] LORazepam (ATIVAN) tablet 2 mg 06-23 02:00: 00 06-23 00:55 :00 No 2mg 2 mg, Oral, ONCE, 1 dose, Thu06/22/19 at 2100, CHRISTY [facility] gabapentin 300 mg capsule 06-22 00:00: 00 07-23 04:59 :00 No [id number] 300mg Take 1 capsule by mouth 2 (two) times daily for 30 days. [facility] KCL (K-DUR) 20 mEq tablet 2010-11 00:00: 00 03-15 00:00 :00 No 40meq Take 2 Tabs by mouth daily. [facility] metoprolol tartrate (LOPRESSOR) 25 mg tablet 2010-11 00:00: 00 03-15 00:00 :00 No 12.5mg Take 0.5 Tabs by mouth 2 (two) times daily. [facility] magnesium oxide (MAG-OX 400) 400 mg tablet 2010-11 00:00: 00 03-15 00:00 :00 No 800mg Take 2 Tabs by mouth 3 (three) times daily. [facility] FLUoxetine (PROZAC) 20 mg capsule 06-06 00:00: 00 09-10 00:00 :00 No 20mg Take 1 Cap by mouth daily. [facility] clonazePAM (KLONOPIN) 0.5 mg tablet 06-06 00:00: 00 03-15 00:00 :00 No .5mg Take 1 Tab by mouth 3 (three) times daily. [facility] calcium carbonate (OSCAL-500) 500 mg (1,250 mg) tablet 03-14 00:00: 00 03-15 00:00 :00 No 500mg Take 1 Tab by mouth 3 (three) times daily with meals. [facility] ferrous sulfate 325 mg (65 mg Iron) tablet 03-14 00:00: 00 03-15 00:00 :00 No 325mg Take 1 Tab by mouth 3 (three) times daily with meals. [facility] nicotine (NICODERM) 21 mg/24 hr patch 03-14 00:00: 00 03-15 00:00 :00 No 1{patch } Apply 1 Patch to area(s) every 24 (twenty-fo ur) hours. [facility] thiamine (VITAMIN B1) 100 mg tablet 03-14 00:00: 00 03-15 00:00 :00 No 100mg Take 1 Tab by mouth daily. [facility] vitamin w/FA ( RX OR GENERIC EQUIVALENT) tablet 03-14 00:00: 00 03-15 00:00 :00 No 1{tbl} Take 1 Tab by mouth daily. [facility] Vital Signs Vital Name Observation Time Observation Value Comments S ource Height/Length Measured 2020-07-25 11:28:48 Systolic blood pressure 2024-04-15 18:30:00 127 mm[Hg] [facility] Diastolic blood pressure 2024-04-15 18:30:00 77 mm[Hg] [facility] Respiratory rate 2024-04-15 18:30:00 20 /min [facility] Oxygen saturation in Arterial blood by Pulse oximetry 2024-04-15 18:30:00 98 /min [facility] Heart rate 2024-04-15 17:30:00 100 /min [facility] Body height 2024-04-15 16:39:00 152.4 cm [facility] Body weight 2024-04-15 16:39:00 69.854 kg [facility] BMI 2024-04-15 16:39:00 30.08 kg/m2 [facility] Body temperature 2024-04-15 16:35:00 36.56 Lien [facility] Systolic blood pressure 2024-04-09 15:00:00 128 mm[Hg] [facility] Diastolic blood pressure 2024-04-09 15:00:00 69 mm[Hg] [facility] Heart rate 2024-04-09 15:00:00 116 /min [facility] Respiratory rate 2024-04-09 15:00:00 16 /min [facility] Oxygen saturation in Arterial blood by Pulse oximetry 2024-04-09 15:00:00 100 /min [facility] Body temperature 2024-04-09 14:34:00 37 Lien [facility] Body height 2024-04-09 14:34:00 162.6 cm [facility] Body weight 2024-04-09 14:34:00 69.854 kg [facility] BMI 2024-04-09 14:34:00 26.43 kg/m2 [facility] Systolic blood pressure 2023-05-01 18:15:22 148 mm[Hg] [facility] Diastolic blood pressure 2023-05-01 18:15:22 73 mm[Hg] [facility] Heart rate 2023-05-01 18:15:22 93 /min [facility] Respiratory rate 2023-05-01 18:15:22 16 /min [facility] Oxygen saturation in Arterial blood by Pulse oximetry 2023-05-01 18:15:22 100 /min [facility] Body temperature 2023-05-01 16:33:00 36.44 Lien [facility] Body weight 2023-05-01 16:33:00 90.719 kg [facility] BMI 2023-05-01 16:33:00 34.33 kg/m2 [facility] Systolic blood pressure 2023-01-14 02:37:00 133 mm[Hg] [facility] Diastolic blood pressure 2023-01-14 02:37:00 65 mm[Hg] [facility] Heart rate 2023-01-14 02:37:00 89 /min [facility] Body temperature 2023-01-14 02:37:00 37.44 Lien [facility] Respiratory rate 2023-01-14 02:37:00 18 /min [facility] Body height 2023-01-14 02:37:00 162.6 cm [facility] Body weight 2023-01-14 02:37:00 90.719 kg [facility] BMI 2023-01-14 02:37:00 34.33 kg/m2 [facility] Oxygen saturation in Arterial blood by Pulse oximetry 2023-01-14 02:37:00 96 /min [facility] Systolic blood pressure 2020-09-12 23:45:00 128 mm[Hg] [facility] Diastolic blood pressure 2020-09-12 23:45:00 66 mm[Hg] [facility] Heart rate 2020-09-12 23:45:00 97 /min [facility] Body temperature 2020-09-12 23:45:00 36.61 Lien [facility] Respiratory rate 2020-09-12 21:30:00 18 /min [facility] Oxygen saturation in Arterial blood by Pulse oximetry 2020-09-12 21:30:00 92 /min [facility] Body height 2020-09-12 20:00:00 162.6 cm [facility] Body weight 2020-09-12 20:00:00 90.719 kg [facility] BMI 2020-09-12 20:00:00 34.33 kg/m2 [facility] Systolic blood pressure 2020-09-12 23:45:00 128 mm[Hg] [facility] Diastolic blood pressure 2020-09-12 23:45:00 66 mm[Hg] [facility] Heart rate 2020-09-12 23:45:00 97 /min [facility] Body temperature 2020-09-12 23:45:00 36.61 Lien [facility] Respiratory rate 2020-09-12 21:30:00 18 /min [facility] Oxygen saturation in Arterial blood by Pulse oximetry 2020-09-12 21:30:00 92 /min [facility] Body height 2020-09-12 20:00:00 162.6 cm [facility] Body weight 2020-09-12 20:00:00 90.719 kg [facility] BMI 2020-09-12 20:00:00 34.33 kg/m2 [facility] Heart rate 2020-09-11 00:51:00 82 /min [facility] Oxygen saturation in Arterial blood by Pulse oximetry 2020-09-11 00:51:00 98 /min [facility] Systolic blood pressure 2020-09-11 00:30:00 91 mm[Hg] [facility] Diastolic blood pressure 2020-09-11 00:30:00 73 mm[Hg] [facility] Body temperature 2020-09-10 23:46:00 36.5 Lien [facility] Respiratory rate 2020-09-10 23:46:00 18 /min [facility] Body height 2020-09-10 23:46:00 162.6 cm [facility] Body weight 2020-09-10 23:46:00 90.992 kg [facility] BMI 2020-09-10 23:46:00 34.43 kg/m2 [facility] Systolic blood pressure 2020-09-10 22:35:00 133 mm[Hg] [facility] Diastolic blood pressure 2020-09-10 22:35:00 72 mm[Hg] [facility] Heart rate 2020-09-10 22:27:00 104 /min [facility] Body temperature 2020-09-10 22:27:00 36.72 Lien [facility] Respiratory rate 2020-09-10 22:27:00 18 /min [facility] Body height 2020-09-10 22:27:00 162.6 cm [facility] Body weight 2020-09-10 22:27:00 90.992 kg [facility] BMI 2020-09-10 22:27:00 34.43 kg/m2 [facility] Height/Length Measured 2021-11-19 12:39:49 162.56 cm Weight [...] Systolic blood pressure 2020-03-15 13:32:00 129 mm[Hg] [facility] Diastolic blood pressure 2020-03-15 13:32:00 71 mm[Hg] [facility] Heart rate 2020-03-15 13:32:00 85 /min [facility] Body temperature 2020-03-15 13:32:00 36.78 Lien [facility] Respiratory rate 2020-03-15 13:32:00 18 /min [facility] Body height 2020-03-15 13:32:00 162.6 cm [facility] Body weight 2020-03-15 13:32:00 78.926 kg [facility] BMI 2020-03-15 13:32:00 29.87 kg/m2 [facility] Systolic blood pressure 2020-03-07 01:00:00 114 mm[Hg] [facility] Diastolic blood pressure 2020-03-07 01:00:00 55 mm[Hg] [facility] Heart rate 2020-03-07 01:00:00 99 /min [facility] Body temperature 2020-03-07 01:00:00 36.67 Lien [facility] Respiratory rate 2020-03-07 01:00:00 20 /min [facility] Oxygen saturation in Arterial blood by Pulse oximetry 2020-03-07 01:00:00 98 /min [facility] Body weight 2020-03-06 23:00:00 68.04 kg [facility] BMI 2020-03-06 23:00:00 25.75 kg/m2 [facility] Body height 2020-03-06 22:57:00 162.6 cm [facility] Respiratory rate 2019-06-23 02:08:00 18 /min [facility] Oxygen saturation in Arterial blood by Pulse oximetry 2019-06-23 02:08:00 95 /min [facility] Systolic blood pressure 2019-06-23 02:08:00 146 mm[Hg] [facility] Diastolic blood pressure 2019-06-23 02:08:00 89 mm[Hg] [facility] Heart rate 2019-06-23 02:08:00 130 /min made aware [facility] Body temperature 2019-06-23 02:08:00 36.72 Lien [facility] Body weight 2019-06-23 00:05:00 68.04 kg [facility] BMI 2019-06-23 00:05:00 25.75 kg/m2 [facility] Systolic blood pressure 2019-06-10 19:43:00 117 mm[Hg] [facility] Diastolic blood pressure 2019-06-10 19:43:00 66 mm[Hg] [facility] Heart rate 2019-06-10 19:43:00 110 /min [facility] Body temperature 2019-06-10 19:43:00 37.06 Lien [facility] Respiratory rate 2019-06-10 19:43:00 18 /min [facility] Body weight 2019-06-10 19:43:00 63.504 kg [facility] BMI 2019-06-10 19:43:00 24.03 kg/m2 [facility] Oxygen saturation in Arterial blood by Pulse oximetry 2019-06-10 19:43:00 97 /min [facility] Procedures Procedure Date / Time Performed Performing Clinician Source EKG-12 LEAD 2024-04-15 18:47:21 [facility]don [facility] POCT TEST 2024-04-15 17:03:00 Mari Herndon [facility] CREATINE KINASE 2024-04-15 17:02:00 [facility] 2024-04-15 17:02:00 [facility] COMP. METABOLIC PANEL ([id number]) 2024-04-15 17:02:00 Mari Herndon [facility] ETHANOL 2024-04-15 17:02:00 Mari Herndon [facility] URINE DRUG (IMMUNOASSAY) - COMPREHENSIVE DRUG SCREEN 2024-04-15 17:02:00 Mari Herndon [facility] CBC WITH DIFF 2024-04-15 17:02:00 Mari Herndon [facility] URINALYSIS 2024-04-15 17:02:00 Mari Herndon [facility] URINALYSIS 2023-05-01 17:17:00 [facility] 2023-05-01 17:17:00 Latasha Palmer ra [facility] CREATINE KINASE 2023-05-01 16:44:00 Sepideh Palmer [facility] COMP. METABOLIC PANEL ([id number]) 2023-05-01 16:44:00 Sepideh Palmer [facility] CBC WITH DIFF 2023-05-01 16:44:00 Sepideh Palmer [facility] AUTHORIZATION FOR RELEASE OF PHI 2022-03-05 05:01:00 Doctor Unassigned, [place] [facility] [id number] 2020-09-13 00:00:00 [facility] / [facility] - DRUG SCREEN TRIAGE 2020-09-12 22:07:00 Gage Reid [facility] MAGNESIUM 2020-09-12 21:06:00 Gage Reid [facility] COMP. METABOLIC PANEL ([id number]) 2020-09-12 21:06:00 Gage Reid [facility] CBC WITH DIFF 2020-09-12 21:06:00 [facility] ECHO ROUTINE W/DOPPLER COLOR 2020-09-12 20:43:53 Talib Rivera [facility] CONSENT/REFUSAL FOR DIAGNOSIS AND TREATMENT 2020-09-12 19:55:29 Doctor Unassigned, [place] [facility] ASSIGNMENT OF BENEFITS 2020-09-12 19:39:54 Docto r Unassigned, [place] [facility] CBC WITH DIFF 2020-09-11 00:30:00 [facility] COVID-19 (ID NOW RAPID TESTING) 2020-09-11 00:15:00 Gage Reid [facility] CONSENT/REFUSAL FOR DIAGNOSIS AND TREATMENT 2020-09-10 23:34:19 Doctor Unassigned, [place] [facility] ASSIGNMENT OF BENEFITS 2020-09-10 23:33:44 Docto r Unassigned, [place] [facility] GROUP B STREPTOCOCCUS BY PCR 2020-09-10 22:45:00 Gage Reid Jewel [facility] L&D VISIT (NON-DELIVERED) 2020-09-10 06:01:00 Doctor Unassigned, [place] [facility] EXTERNAL PROVIDER RECORDS 2020-04-18 05:01:00 Doctor Unassigned, [place] [facility] ADC / [facility] - DRUG SCREEN TRIAGE 2020-03-15 14:26:00 Felipe Gage Holloway [facility] ASSIGNMENT OF BENEFITS 2020-03-15 13:18:47 Docto r Unassigned, [place] [facility] POCT URINALYSIS W/O SPECIFIC GRAVITY 2020-03-15 00:00:00 FelipeGage Jewel [facility] POCT TEST 2020-03-07 00:38:00 Edson Chambers [facility] MAGNESIUM 2020-03-06 23:24:[address] [facility] COMP. METABOLIC PANEL ([id number]) 2020-03-06 23:24:00 Edson Chambers [facility] SALICYLATE 2020-03-06 23:24:[address] [facility] ETHANOL 2020-03-06 23:24:[address] [facility] CBC WITH DIFFERENTIAL 2020-03-06 23:24:00 Edson Chambers [facility] URINALYSIS 2020-03-06 23:21:[address] [facility] ADC / LCC - DRUG SCREEN TRIAGE 2020-03-06 23:21:00 Edson Chambers [facility] EKG-12 LEAD 2020-03-06 23:04:[address] [facility] NOTICE OF PRIVACY PRACTICES 2019-06-10 19:40:45 Doctor Unassigned, [place] [facility] CONSENT/REFUSAL FOR DIAGNOSIS AND TREATMENT 2019-06-10 19:34:31 Doctor Unassigned, [place] [facility] Encounters Start Date/Time End Date/Time Encounter Type Admission Type Attending [facility] Care Facility Care Department Encounter ID Source 2021-08-31 04:56:11 Outpatient P [facility] RACHEL [id number] [facility] 2021-08-31 04:16:00 Outpatient P [facility] R[facility] [id number] [facility] 2021-08-31 04:15:28 Outpatient P [facility] RACHEL [id number] [facility] 2020-09-13 22:39:00 Inpatient Sherman Fabian [facility] [id number] [facility] 2020-07-25 10:46:00 Inpatient Rj Diez [facility] [id number] [facility] 2024-05-26 11:08:15 2024-05-26 23:59:00 Outpatient R TRISTANCRISTOBAL RCISTOBAL NINO [facility] [id number] [facility] 2024-05-26 11:08:15 2024-05-26 23:59:00 Hospital Encounter Cristobal Nino [facility] 1.2.840.114 350.1.13.10 4.2.7.2.686 [id number] [facility] 2024-05-26 11:15:00 2024-05-26 12:18:57 Office Visit Cristobal Nino Craig L [facility] 1.2.840.114 350.1.13.10 4.2.7.2.686 [id number] [facility] 2024-04-15 11:33:00 2024-04-15 14:00:00 Emergency X MARI HERNDON [facility] ERT [id number] [facility] 2024-04-15 11:33:00 2024-04-15 14:00:00 Emergency Mari Herndon [facility] 1..840.114 350.1.13.10 4.2.7.2.686 [id number] [facility] 2024-04-09 09:29:00 2024-04-09 10:43:00 Emergency X BRIGITTE RIVERO [facility] ERT [id number] [facility] 2024-04-09 09:29:00 2024-04-09 10:43:00 Emergency Brigitte Rivero [facility] 1.2.840.114 350.1.13.10 4.2.7.2.686 [id number] [facility] 2023-11-14 00:00:00 2023-11-14 00:00:00 Nurse T[address] Alisa Spann [facility] 1.2.840.114 350.1.13.10 4.2.7.2.686 [id number] [facility] 2023-08-15 00:00:00 2023-08-15 00:00:00 Outpatient GC_GCBZW_Ka diyala_S PRIV PRIV [id number] [facility] 2023-08-05 15:00:00 2023-08-05 15:00:00 Outpatient JYOTI HOANG [facility] [id number] [facility] 2023-08-05 00:00:00 2023-08-05 00:00:00 Outpatient GC_GCBZW_Ka diyala_S PRIV PRIV [id number] [facility] 2023-08-05 00:00:00 2023-08-05 00:00:00 Outpatient GC_GCBZW_Ka diyala_S PRIV PRIV [id number] [facility] 2023-07-20 00:00:00 2023-07-20 00:00:00 Outpatient GC_GCBZW_Ka diyala_S PRIV PRIV [id number] [facility] 2023-05-01 11:30:00 2023-05-01 14:17:00 Emergency X SEPIDEH PALMER [facility] ERT [id number] [facility] 2023-05-01 11:30:00 2023-05-01 14:17:00 Emergency Sepideh Palmer [facility] 1.2840.114 350.1.13.10 4.2.7.2.686 [id number] [facility] 2023-01-13 21:42:00 2023-01-13 22:24:00 Emergency X MIGUEL A NATH [facility] ERT [id number] [facility] 2023-01-13 21:42:00 2023-01-13 22:24:00 Emergency Miguel A Nath [facility] 1.20.114 350.1.13.10 4.2.7.2.686 [id number] [facility] 2022-03-05 00:00:00 2022-03-05 00:00:00 Orders Only Doctor Unassigned, [place] [facility] 1.20.114 350.1.13.10 4.2.7.2.686 [id number] [facility] 2021-09-23 15:00:00 2021-09-23 15:00:00 Outpatient R GAGE REID [facility] [id number] [facility] 2021-08-21 09:30:00 2021-08-21 09:30:00 Outpatient R GAGE REID [facility] [id number] [facility] 2020-09-12 13:34:00 2020-09-12 18:35:00 Hospital Encounter FelipeGage [facility] 1.20.114 350.1.13.10 4.2.7.2.686 [id number] 2020-09-12 13:34:00 2020-09-12 18:35:00 Hospital Encounter FelipeGage [facility] 1.2840.114 350.1.13.10 4.2.7.2.686 [id number] [facility] 2020-09-12 09:45:00 2020-09-12 09:45:00 Outpatient R GAGE REID [facility] [id number] [facility] 2020-09-11 15:45:00 2020-09-11 15:45:00 Outpatient R GAGE REID [facility] [id number] [facility] 2020-09-11 00:00:00 2020-09-11 00:00:00 Telephone Gage Reid [facility] Building 1.2.840.114 350.1.13.10 4.2.7.2.686 [id number] [facility] 2020-09-11 00:00:00 2020-09-11 00:00:00 Case Management Gage Reid [facility] 1.2.840.114 350.1.13.10 4.2.7.2.686 [id number] [facility] 2020-09-11 00:00:00 2020-09-11 00:00:00 Telephone Gage Reid [facility] 1.2.840.114 350.1.13.10 4.2.7.2.686 [id number] 2020-09-10 17:30:00 2020-09-10 19:10:00 Hospital Encounter Gage Reid [facility] 1.2.840.114 350.1.13.10 4.2.7.2.686 [id number] [facility] 2020-09-10 16:09:56 2020-09-10 17:20:04 Routine Visit Gage Reid [facility] 1.2.840.114 350.1.13.10 4.2.7.2.686 [id number] [facility] 2020-09-10 16:00:00 2020-09-10 16:00:00 Outpatient R GAGE REID [facility] [id number] [facility] 2020-09-03 13:00:00 2020-09-03 13:00:00 Outpatient R GAGE REID [facility] [id number] [facility] 2020-08-31 08:30:00 2020-08-31 08:30:00 Outpatient R JYOTI PAGAN [facility] [id number] [facility] 2020-08-21 10:30:00 2020-08-21 10:30:00 Outpatient R JYOTI PAGAN [facility] [id number] [facility] 2020-08-14 10:30:00 2020-08-14 10:30:00 [facility] [id number] 2020-08-13 11:00:00 2020-08-13 11:00:00 Outpatient R GAGE REID [facility] [id number] [facility] 2020-07-25 10:07:00 2020-08-02 13:01:00 Inpatient 1 Rj Diez Thomas [facility] [id number] [facility] 2020-07-20 08:30:00 2020-07-20 08:30:00 Outpatient R JYOTI PAGAN [facility] [id number] [facility] 2020-07-17 13:30:00 2020-07-17 13:30:00 Outpatient R JYOTI PAGAN [facility] [id number] [facility] 2020-07-12 14:30:00 2020-07-12 14:30:00 Outpatient R GAGE REID [facility] [id number] [facility] 2020-06-19 14:30:00 2020-06-19 14:30:00 Outpatient R GAGE REID [facility] [id number] [facility] 2020-04-30 08:45:00 2020-04-30 08:45:00 Outpatient R [facility] [id number] [facility] 2020-04-26 10:31:59 2020-04-26 11:51:31 Assistant Plant Controller Visit Ultrasound, Cheikh Dee [facility] 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 1.840.114 350.1.13.10 4.2.7.2.686 [id number] [facility] 2020-04-20 15:00:00 2020-04-20 15:00:00 Outpatient R [facility] [id number] [facility] 2020-04-20 08:18:30 2020-04-20 08:33:30 Telemedici ne Visit Fellow, [facility] ..114 350.1.13.10 4.2.7.2.686 [id number] [facility] 2020-04-18 00:00:00 2020-04-18 00:00:00 Orders Only Doctor Unassigned, [place] [facility] ..114 350.1.13.10 4.2.7.2.686 [id number] [facility] 2020-04-12 08:45:00 2020-04-12 08:45:00 Outpatient R GAGE REID [facility] [id number] [facility] 2020-04-06 08:00:00 2020-04-06 08:30:00 Telemedici ne Visit Fellow, Lu[facility] Olga Lidia Corral [facility] 1.2.840.114 350.1.13.10 4.2.7.2.686 [id number] [facility] 2020-04-06 08:00:00 2020-04-06 08:00:00 Outpatient R [facility] [id number] [facility] 2020-03-30 00:00:00 2020-03-30 00:00:00 Case Management Sanjana Sierra [facility] nal Building 1.2840.114 350.1.13.10 4.2.7.2.686 [id number] [facility] 2020-03-20 00:00:00 2020-03-20 00:00:00 Refill Gage Reid [facility] Building 1.2840.114 350.1.13.10 4.2.7.2.686 [id number] [facility] 2020-03-15 08:20:24 2020-03-15 09:19:11 Initial Visit Gage Reid [facility] Building 1.2840.114 350.1.13.10 4.2.7.2.686 [id number] [facility] 2020-03-15 08:00:00 2020-03-15 08:00:00 Outpatient R JAIMIE REIDEN [facility] [id number] [facility] 2020-03-15 00:00:00 2020-03-15 00:00:00 Orders Only Doctor Unassigned, [place] [facility] 1.2840.114 350.1.13.10 4.2.7.2.686 [id number] [facility] 2020-03-15 00:00:00 2020-03-15 00:00:00 Telephone Gage Reid [facility] Building 1.2840.114 350.1.13.10 4.2.7.2.686 [id number] [facility] 2020-03-06 17:55:54 2020-03-06 22:34:00 Emergency Edson Chambers [facility] 1.2.840.114 350.1.13.10 4.2.7.2.686 [id number] [facility] 2020-03-06 17:55:54 2020-03-06 17:55:54 Emergency X Edson CHAMBERS [facility] ERT [id number] [facility] 2020-02-01 00:00:00 2020-02-01 00:00:00 Telephone Faculty, Hood Ye[facility] VOCATIONAL REHABILITATION SUPERVISOR [facility] 1.2.840.114 350.1.13.10 4.2.7.2.686 [id number] [facility] 2019-06-22 19:07:21 2019-06-22 21:13:00 Emergency [facility] 1.2.840.114 350.1.13.10 4.2.7.2.686 [id number] [facility] 2019-06-10 14:44:46 2019-06-10 15:34:00 Emergency Sepideh Palmer [facility] 1.2.840.114 350.1.13.10 4.2.7.2.686 [id number] [facility] 2019-06-10 00:00:00 2019-06-10 00:00:00 Orders Only Doctor Unassigned, [place] [facility] 1.2.840.114 350.1.13.10 4.2.7.2.686 [id number] [facility] Results Test Description Test Time Test Comments Results Result Co mments Source [facility] 17:29:51 ALCOHOL<10mg/dL04/15/2024 12:29 PM [facility]10 [id number] Toxic>100 Depression of [employer] REPA[employer]>[address] Hospital[facility] Metabolic Panel (11866)2024-04-15 17:27:38* Test Item Value Reference Range Interpretation Comme nts NA (test code = 5330014904) 140 mmol/L 135-145 K (test code = 9430264331) 3.4 mmol/L 3.5-5.0 L CL (test code = 8463261627) 104 mmol/L 98-108 CO2 TOTAL (test code = 3728435016) 31 mmol/L 23-31 AGAP (test code = 0758992148) 5 2-16 BUN (test code = 5440713959) 10 mg/dL 7-23 GLUCOSE (test code = 8437246956) 90 mg/dL 70-110 CREATININE (test code = 2160-0) 0.77 mg/dL 0.50-1.04 TOTAL BILI (test code = 2848956400) 0.4 mg/dL 0.1-1.1 CALCIUM (test code = 0812441201) 9.4 mg/dL 8.6-10.6 T PROTEIN (test code = 8779525767) 6.9 g/dL 6.3-8.2 ALBUMIN (test code = 2177815029) 3.9 g/dL 3.5-5.0 ALK PHOS (test code = 3454967010) 89 U/L 34-122 ALTv (test code = 1742-6) 18 U/L 5-35 AST(SGOT) (test code = 9571241499) 27 U/L 13-40 eGFR (test code = 06025-9) 98.9 mL/min/1.73m2 CKD-EPI eGFR (2020). Assuming creatinine has been stable day-to-day for at least three months, the eGFR indicates Category G1 (>= 90 mL/min/1.73 m2) Lab Interpretation (test code = 85342-5) Abnormal [facility] [id number] 17:27:38* Test Item Value Reference Range Interpretation Comme nts CK (test code = 1143584765) 69 U/L 33-194 Lab Interpretation (test cod e = 84034-5) Normal [facility]bc with [id number] 17:12:33* Test Item Value Reference Range Interpretation Comme nts WBC (test code = 6690-2) 8.43 4.30-11.10 RBC (test code = 789-8) 3.62 3.93-5.25 L HGB (test code = 718-7) 11.0 g/dL 11.6-15.0 L HCT (test code = 4544-3) 33.8 % 35.7-45.2 L MCV (test code = 787-2) 93.4 fL 80.6-95.5 MCH (test code = 785-6) 30.4 pg 25.9-32.8 MCHC (test code = 786-4) 32.5 g/dL 31.6-35.1 RDW-SD (test code = 14234-9) 47.8 fL 39.0-49.9 RDW-CV (test code = 788-0) 14.0 % 12.0-15.5 PLT (test code = 777-3) 361 166-358 H MPV (test code = 93067-4) 9.6 fL 9.5-12.9 NRBC/100 WBC (test code = 3696976039) 0.0 0.0-10.0 NRBC x10^3 (test code = 0837387736) See_Comment [Automated messa ge] The system which generated this result transmitted reference range: 10*3/?L. The reference range was not used to interpret this result as normal/abnormal. GRAN MAT (NEUT) % (test code = 770-8) 61.2 % IMM GRAN % (test code = 5220064502) 0.20 % LYMPH % (test code = 736-9) 29.5 % MONO % (test code = 5905-5) 6.9 % EOS % (test code = 713-8) 1.7 % BASO % (test code = 706-2) 0.5 % GRAN MAT x10^3(ANC) (test code = 7192147246) 5.16 10*3/uL 1.88-7.09 IMM GRAN x10^3 (test code = 8469876367) 0.00-0.06 LYMPH x10^3 (test code = 731-0) 2.49 10*3/uL 1.32-3.29 MONO x10^3 (test code = 742-7) 0.58 10*3/uL 0.33-0.92 EOS x10^3 (test code = 711-2) 0.14 10*3/uL 0.03-0.39 BASO x10^3 (test code = 704-7) 0.04 10*3/uL 0.01-0.07 Lab Interpretation (test code = 68189-6) Abnormal [facility] [id number] 17:03:00* Test Item Value Reference Range Interpretation Comme nts POCT PREG (test code = 1605) Negative On board controls acceptable with C Line (test code = 3574) Yes POCT PREG LOT # (test code = 3575) [id number] POCT PREG TEST DATE ( test code = 3576) 2025-03-05 Lab Interpretation (test cod e = 51101-2) Normal [facility] [id number] 17:17:00* Test Item Value Reference Range Interpretation Comme nts POCT PREG (test code = 1605) Negative On board controls acceptable with C Line (test code = 3574) Yes POCT PREG LOT # (test code = 3575) HCG [id number] POCT PREG TEST DATE (test code = 3576) 08/07/2024 Lab Interpretation (test cod e = 15993-5) Normal [facility]O [id number] 07:10:00* Test Item Value Reference Range Interpretation [...] code = PLTMR) NORMAL NORMAL Comments to [employer] Advisor: TO BE COLLECTED BY LABRUBELLA [id number] 14:15:00* Test Item Value Reference Range Interpretation Comme nts RUBELLA SCREEN (test code = RUBSC) 73.8 IUnit/ml Results >10.0IUn its/ml are considered positive inaccordance with the CLSI guidelines and based on the WHO International Standard for Anti-Rubella serum as anindicator of immune status and a breakpoint to detect mostseropositive persons. Comments to [employer] Advisor: please use blood alreadyin the labB [id number] 07:26:00* Test Item Value Reference Range Interpretation Comme nts HEMOGLOBIN (test code = HGB) 10.9 g/dL 10.7-13.9 N HEMATOCRIT (test code = HCT) 34.6 % 32.1-42.1 N AB HEPATITIS C [id number] 04:56:00* Test Item Value Reference Range Interpretation Comme nts AB HEPATITIS C (test code = HCVAB) NONREACTIVE NONREACTIVE SIGNAL TO CUTOFF (test code = CUTOFF) 0.10 <0.80 N IS CONSENT FORM SIGNED FOR HIV TESTING? YAB [id number] 04:56:00* Test Item Value Reference Range Interpretation Comme nts AB TREPONEMA (test code = TREPAB) NONREACTIVE NONREACTIVE IS CONSENT FORM SIGNED FOR HIV TESTING? YAB HIV 1 04:56:00* Test Item Value Reference Range Interpretation Comme nts AB HIV 1 2 (test code = BUU28LT) NONREACTIVE NONREACTIVE Done by [employer] HIV Ag/Ab Combo Screen IS CONSENT FORM SIGNED FOR HIV TESTING? YAG HEPATITIS B [id number] 04:56:00* Test Item Value Reference Range Interpretation Comme nts AG HEPATITIS B SURFACE (test code = HBSAG) NONREACTIVE NONREACTIVE IS CONSENT FORM SIGNED FOR HIV TESTING? YAB HEPATITIS C [id number] 04:56:00* Test Item Value Reference Range Interpretation Comme nts AB HEPATITIS C (test code = HCVAB) NONREACTIVE NONREACTIVE SIGNAL TO CUTOFF (test code = CUTOFF) 0.10 <0.80 N IS CONSENT FORM SIGNED FOR HIV TESTING? YAB [id number] 04:56:00* Test Item Value Reference Range Interpretation Comme nts AB TREPONEMA (test code = TREPAB) NONREACTIVE NONREACTIVE IS CONSENT FORM SIGNED FOR HIV TESTING? YAB HIV 1 04:56:00* Test Item Value Reference Range Interpretation Comme nts AB HIV 1 2 (test code = STM40PC) NONREACTIVE IS CONSENT FORM SIGNED FOR HIV TESTING? YAG HEPATITIS B [id number] 04:56:00* Test Item Value Reference Range Interpretation Comme nts AG HEPATITIS B SURFACE (test code = HBSAG) NONREACTIVE NONREACTIVE IS CONSENT FORM SIGNED FOR HIV TESTING? YAG HEPATITIS B [id number] 04:41:00* Test Item Value Reference Range Interpretation Comme nts AG HEPATITIS B SURFACE (test code = HBSAG) NONREACTIVE NONREACTIVE IS CONSENT FORM SIGNED FOR HIV TESTING? YAB HEPATITIS C [id number] 04:41:00* Test Item Value Reference Range Interpretation Comme nts AB HEPATITIS C (test code = HCVAB) NONREACTIVE SIGNAL TO CUTOFF (test code = CUTOFF) <0.80 IS CONSENT FORM SIGNED FOR HIV TESTING? YAB [id number] 04:41:00* Test Item Value Reference Range Interpretation Comme nts AB TREPONEMA (test code = TREPAB) NONREACTIVE NONREACTIVE IS CONSENT FORM SIGNED FOR HIV TESTING? YAB HIV 1 04:41:00* Test Item Value Reference Range Interpretation Comme nts AB HIV 1 2 (test code = HHG96AE) NONREACTIVE IS CONSENT FORM SIGNED FOR HIV TESTING? YCOMPREHENSIVE METABOLIC [id number] 02:39:00* Test Item Value Reference Range Interpretation [...] units/L 46-116 H COVID 19 Asymptomatic IH [id number] 00:09:00* Test Item Value Reference Range Interpretation [...] testsfor detection and/or diagnosis of COVID-19 under Cfczqru652(b)(1) of the Act, 21 U.S.C. 360bbb-3(b)(1), unless theauthorization is terminated or revoked sooner. CBC W/AUTO [id number] 00:00:00* Test Item Value Reference Range Interpretation Comme nts WHITE BLOOD CELL (test code = WBC) 20.9 K/mm3 6.6-12.1 HH RESULTS CALLED Susanna narayan.READ BACK & CONFIRMED? yes.BY NARDA.MR 09/13/20 8015. RED BLOOD CELL (test code = RBC) [...] NORMAL ADC / LCC - DRUG SCREEN [id number] 22:29:00* Test Item Value Reference Range Interpretation Comme nts BENZO U (test code = 3711025421) Presumptive Positive Negative A ARNOLD U (test code = 9970690656) Negative Negative AMPHET (test code = 5244193786) Negative Negative THC (test code = 7939253175) Presumptive Positive Negative A Confirmation of Presumptive Positive THC result requires physician order. METHADONE (test code = 5914638114) Negative Negative Meth U (test code = 3894377036) Negative Negative OPIATES (test code = 9507028168) Presumptive Positive Negative A Cocaine Metabolite (test code = 9932105331) Negative Negative PROPOXY (test code = 4096785472) Negative Negative Tric U (test code = 8063951096) Negative Negative PCP (test code = 4933105927) Negative Negative OXYCOD (test code = 3565643696) Negative Negative YAMIL (test code = YAMIL) [...] legal testing). Lab Interpretation (test code = 13751-2) Abnormal [facility]. METABOLIC PANEL (42388)2020-09-12 21:50:00* Test Item Value Reference Range Interpretation Comme nts NA (test code = 0179766904) 133 mmol/L 135-145 L K (test code = 2286354885) 3.8 mmol/L 3.5-5 CL (test code = 8253617366) 106 mmol/L 98-108 CO2 TOTAL (test code = 3958934694) 23 mmol/L 23-31 AGAP (test code = 7590486580) 2-16 BUN (test code = 2616084670) 10 mg/dL 7-23 GLUCOSE (test code = 3722004154) 106 mg/dL 70-110 CREATININE (test code = 7737492816) 0.53 mg/dL 0.5-1.04 TOTAL BILI (test code = 6998786455) 0.3 mg/dL 0.1-1.1 CALCIUM (test code = 9283477470) 8.3 mg/dL 8.6-10.6 L T PROTEIN (test code = 2898389897) 6.0 g/dL 6.3-8.2 L ALBUMIN (test code = 8129301329) 3.1 g/dL 3.5-5 L ALK PHOS (test code = 3796817994) 185 U/L 34-122 H ALTv (test code = 1742-6) 15 U/L 5-35 AST(SGOT) (test code = 3613876916) 24 U/L 13-40 eGFR Calculation (Non-) (test code = 6125527602) mL/min/1.73m2 eGFR Calculation () (test code = 6896289720) mL/min/1.73m2 YAMIL (test code = YAMIL) Association [...] imaging tests). Lab Interpretation (test code = 09074-5) Abnormal [facility]2020-[facility]-11 21:50:00* Test Item Value Reference Range Interpretation Comme nts MAGNESIUM (test code = 1551204745) 1.8 mg/dL 1.7-2.4 Lab Interpretation (test cod e = 79709-3) [facility] [id number] 21:37:00* Test Item Value Reference Range Interpretation [...] 33.0 g/dL 31.6-35.1 RDW-SD (test code = 97611-5) 49.1 fL 39-49.9 RDW-CV (test code = 788-0) 14.3 % 12-15.5 PLT (test code = 777-3) See_Comment [Automated message] The system which generated this result transmitted reference range: 166 - 358 10*3/?L. The reference range was not used to interpret this result as normal/abnormal. MPV (test code = 65913-5) 10.0 fL 9.5-12.9 NRBC/100 WBC (test code = 0229364813) See_Comment [Automated message] The system which generated this result transmitted reference range: 0.0 - 10.0 /100 WBCs. The reference range was not used to interpret this result as normal/abnormal. NRBC x10^3 (test code = 7111147155) <0.01 See_Comment [Automated message] The system which generated this result transmitted reference range: 10*3/?L. The reference range was not used to interpret this result as normal/abnormal. GRAN MAT (NEUT) % (test code = 770-8) 77.1 % IMM GRAN % (test code = 5898446839) 1.00 % LYMPH % (test code = 736-9) 15.4 % MONO % (test code = 5905-5) 5.1 % EOS % (test code = 713-8) 1.1 % BASO % (test code = 706-2) 0.3 % GRAN MAT x10^3(ANC) (test code = 0334360232) 11.59 10*3/uL 1.88-7.09 H IMM GRAN x10^3 (test code = 2428302994) 0.15 10*3/uL 0-0.06 H LYMPH x10^3 (test code = 731-0) 2.32 10*3/uL 1.32-3.29 MONO x10^3 (test code = 742-7) 0.76 10*3/uL 0.33-0.92 EOS x10^3 (test code = 711-2) 0.17 10*3/uL 0.03-0.39 BASO x10^3 (test code = 704-7) 0.05 10*3/uL 0.01-0.07 Lab Interpretation (test code = 82171-6) [facility]PTOC[facility]CC[facility] BY [id number] 14:02:00* Test Item Value Reference Range Interpretation Comme nts Group B Streptococcus by PCR (test code = 21724-6) Negative Negative Lab Interpretation (test cod e = 00709-9) [facility] (ID NOW RAPID TESTING)2020-09-11 00:51:00* Test Item Value Reference Range Interpretation Comme nts SARS-CoV-2 Rapid ID NOW (test code = 93228-5) Not Detected Not Detected YAMIL (test code = YAMIL) ID NOW COVID-19 As say is an isothermal nucleic acid amplification test intended for the qualitative detection of nucleic acid from SARS-CoV-2 viral RNA in nasopharyngeal (ORDER TAKER) specimens. It is used under Emergency Use [...] clinically indicated. Lab Interpretation (test code = 03569-8) Normal [facility] WITH [id number] 00:50:00* Test Item Value Reference Range Interpretation [...] 33.1 g/dL 31.6-35.1 RDW-SD (test code = 56974-1) 50.4 fL 39-49.9 H RDW-CV (test code = 788-0) 14.5 % 12-15.5 PLT (test code = 777-3) See_Comment [Automated messa ge] The system which generated this result transmitted reference range: 166 - 358 10*3/?L. The reference range was not used to interpret this result as normal/abnormal. MPV (test code = 16537-5) 9.9 fL 9.5-12.9 NRBC/100 WBC (test code = 6112120755) See_Comment [Automated [employer] ssage] The system which generated this result transmitted reference range: 0.0 - 10.0 /100 WBCs. The reference range was not used to interpret this result as normal/abnormal. NRBC x10^3 (test code = 8585628061) <0.01 See_Comment [Automated messa ge] The system which generated this result transmitted reference range: 10*3/?L. The reference range was not used to interpret this result as normal/abnormal. GRAN MAT (NEUT) % (test code = 770-8) 76.4 % IMM GRAN % (test code = 1165350177) 0.90 % LYMPH % (test code = 736-9) 16.0 % MONO % (test code = 5905-5) 5.2 % EOS % (test code = 713-8) 1.3 % BASO % (test code = 706-2) 0.2 % GRAN MAT x10^3(ANC) (test code = 9054229145) 9.39 10*3/uL 1.88-7.09 H IMM GRAN x10^3 (test code = 3301463167) 0.11 10*3/uL 0-0.06 H LYMPH x10^3 (test code = 731-0) 1.97 10*3/uL 1.32-3.29 MONO x10^3 (test code = 742-7) 0.64 10*3/uL 0.33-0.92 EOS x10^3 (test code = 711-2) 0.16 10*3/uL 0.03-0.39 BASO x10^3 (test code = 704-7) 0.03 10*3/uL 0.01-0.07 Lab Interpretation (test code = 45174-9) [facility] Tamdutcuovgfg1014-30-39 08:28:44* Test Item Value Reference Range Interpretation Comme [facility] LDH (test code = LDH) 166 U/L 120-246 Comprehensive Metabolic Qexgg9768-78-28 08:16:47* Test Item Value Reference Range Interpretation Comme [facility] Sodium Level (test code = So dium [...] = Lipemia) 0 g/dL 1-2 Comprehensive Metabolic Cpeoc2630-18-75 08:16:47* Test Item Value Reference Range Interpretation [...] is not provided, and the patient is -Bhutanese, multiply by 1.212. If sex is not [...] is not provided, and the patient is -Bhutanese, multiply by 1.212. If sex is not [...] = Lipemia) 0 g/dL 1-2 Comprehensive Metabolic Migwq6052-57-97 08:16:47* Test Item Value Reference Range Interpretation [...] is not provided, and the patient is -Bhutanese, multiply by 1.212. If sex is not [...] is not provided, and the patient is -Bhutanese, multiply by 1.212. If sex is not [...] 0 g/dL 1-2 Complete Blood Count without Mbbc3710-61-52 08:09:40* Test Item Value Reference Range Interpretation [...] = NRBC Abs) 0.00 x10 N Creatinine Opkgu6567-95-97 15:39:13* Test Item Value Reference Range Interpretation Comme nts U Creatinine (test code = U Creatinine) 89.1 mg/dL N Reference r anges have not been established for this assay. Protein Ciyqc6052-41-53 15:39:13* Test Item Value Reference Range Interpretation Comme nts U Protein (test code = U Protein) 10.4 mg/dL 1.0-14.0 Complete Blood Count without Hiuj6098-83-04 06:39:12* Test Item Value Reference Range Interpretation [...] x10 N US OB Greater Than 14 Shwwn6524-53-02 19:21:42Patient: MARTNIE LENTZ Date/Time07/26/2020 17:29 CDTReason for Examper md order;Other (please specify)ReportOB ULTRASOUND LIMITEDLocation: [id number] HISTORY: Confirm pregnancyLMP gest.age by LMP 32 [...] VSigned (Electronic Signature): 07/26/2020 7:21 pmBeta HCG Jsxyomimuojv8739-76-49 14:42:56* Test Item Value Reference Range Interpretation Comme nts HCG, Beta Quantitative (test code = HCG, Beta Quantitative) 01499.1 mIU/mL N 17-54 (Non-)?41 (Post-menopausal) RPR Fpjlkcckoge3623-96-91 12:50:28* Test Item Value Reference Range Interpretation [...] code = Expiration Dt) 08-01-2021 N Lipid Qhrjl5726-18-76 07:58:23* Test Item Value Reference Range Interpretation [...] is LDL/HDL Ratio=LDL Calc/HDL Chol Thyroid Stimulating Msojdts5567-46-10 07:58:23* Test Item Value Reference Range Interpretation Comme nts TSH (test code = TSH) 1.312 mcIU/mL 0.550-4.780 Hemoglobin H2z5500-30-96 07:54:16* Test Item Value Reference Range Interpretation Comme nts Hemoglobin A1c (test code = Hemoglobin A1c) 5.1 % 4.0-5.8 Diabetic >=6.5 %Prediabetes 5.7-6.4 %Normal <5.7 % ADC / [facility] - DRUG SCREEN VURMEW8840-81-03 22:40:00* Test Item Value Reference Range Interpretation Comme nts BENZO U (test code = 9430454366) Negative Negative ARNOLD U (test code = 6039555461) Negative Negative AMPHET (test code = 7122232992) Negative Negative THC (test code = 8851878603) Negative Negative METHADONE (test code = 0916571879) Negative Negative Meth U (test code = 3788247925) Negative Negative OPIATES (test code = 1123643859) Negative Negative Cocaine Metabolite (test code = 7936171337) Negative Negative PROPOXY (test code = 0945137287) Negative Negative Tric U (test code = 3230234226) Negative Negative PCP (test code = 7285851749) Negative Negative OXYCOD (test code = 8794683268) Negative Negative YAMIL (test code = YAMIL) [...] legal testing). Lab Interpretation (test code = 05641-5) Normal [facility] URINALYSIS W/O SPECIFIC AMWYFAS1954-75-05 14:00:00* Test Item Value Reference Range Interpretation [...] = 3257) N/A Negative - Negati ve [facility]. METABOLIC PANEL (81038)2020-03-07 00:39:00* Test Item Value Reference Range Interpretation Comme nts NA (test code = 2403347916) 139 mmol/L 135-145 K (test code = 9073195552) 3.9 mmol/L 3.5-5 CL (test code = 9622657872) 108 mmol/L 98-108 CO2 TOTAL (test code = 6957060976) 22 mmol/L 23-31 L AGAP (test code = 7964788433) 2-16 BUN (test code = 5379944409) 5 mg/dL 7-23 L GLUCOSE (test code = 0121352832) 103 mg/dL 70-110 CREATININE (test code = 3052763658) 0.44 mg/dL 0.5-1.04 L TOTAL BILI (test code = 7315504547) <0.1 0.1-1.1 L CALCIUM (test code = 1240010911) 9.7 mg/dL 8.6-10.6 T PROTEIN (test code = 9554711654) 6.2 g/dL 6.3-8.2 L ALBUMIN (test code = 1112864413) 3.6 g/dL 3.5-5 ALK PHOS (test code = 2073174000) 56 U/L 34-122 ALTv (test code = 1742-6) 10 U/L 5-35 AST(SGOT) (test code = 8869462980) 20 U/L 13-40 eGFR Calculation (Non-) (test code = 6003030803) mL/min/1.73m2 eGFR Calculation () (test code = 9617168679) mL/min/1.73m2 YAMIL (test code = YAMIL) Association [...] imaging tests). Lab Interpretation (test code = 91247-6) Abnormal [facility]ET[facility]INOPHEN2020-05-[facility] 00:39:00* Test Item Value Reference Range Interpretation Comme nts ACETAMINOP (test code = 5419041209) <10.0 10-30 L YAMIL (test code = YAMIL) Toxic: Greater hanna n 200 ug/mL @ 4 hour post ingestion or greater than 50 ug/mL @ 12 hour post ingestion Lab Interpretation (test code = 02173-7) Abnormal [facility]ALICYLATE2020-05-06 00:39:00* Test Item Value Reference Range Interpretation Comme nts SALICYLATE (test code = 1504601304) <10 mg/L YAMIL (test code = YAMIL) Therapeutic Range: ? Analgesic and Antipyretic Use ? 20-100 mg/L ? ? Anti-Inflammatory Use ? 100-250 mg/L Toxic Range: ? Greater than 300 mg/L [facility]POCT LYHJ3711-02-79 00:38:00* Test Item Value Reference Range Interpretation Comme nts POCT PREG (test code = 1605) positive On board controls acceptable with C Line (test code = 3574) present POCT PREG LOT # (test code = 3575) [id number] POCT PREG TEST DATE ( test code = 3576) 06-01-2021 Lab Interpretation (test cod e = 00750-5) Normal [facility]ETHANOL2020-[facility]-06 00:37:00* Test Item Value Reference Range Interpretation Comme nts ALCOHOL (test code = 2184219365) 88 mg/dL YAMIL (test code = YAMIL) <10 Klyezwbj37-421 Toxic>100 Depression of [employer] REPA[employer]>400 Fatalities Reported [facility]MAGNESIUM2020-05-06 00:36:00* Test Item Value Reference Range Interpretation Comme nts MAGNESIUM (test code = 5595958265) 1.6 mg/dL 1.7-2.4 L Lab Interpretation (test cod e = 72740-2) Abnormal [facility]IS2020-05-06 00:15:00* Test Item Value Reference Range Interpretation Comme nts APPEARANCE (test code = 4212721220) Clear Clear COLOR (test code = 0039754406) Yellow Yellow PH (test code = 9584649209) 4.8-8.0 SP GRAVITY (test code = 3265129416) 1.003-1.030 GLU U QUAL (test code = 4882349051) Normal Normal BLOOD (test code = 7471722905) Negative Negative KETONES (test code = 7906193426) Negative Negative PROTEIN (test code = 2887-8) Negative Negative UROBILIN (test code = 6556827820) Normal Normal BILIRUBIN (test code = 3573037088) Negative Negative NITRITE (test code = 8027230698) Negative Negative LEUK MARY (test code = 3104664240) Negative Negative RBC/HPF (test code = 0549832848) <1 See_Comment [Automated messa ge] The system which generated this result transmitted reference range: 0 - 3 HPF. The reference range was not used to interpret this result as normal/abnormal. WBC/HPF (test code = 2745186510) See_Comment [Automated [employer] ge] The system which generated this result transmitted reference range: 0 - 5 HPF. The reference range was not used to interpret this result as normal/abnormal. BACTERIA (test code = 5968955247) Few Negative A MUCOUS (test code = 4640367514) Slight Negative LPF A SQ EPITH (test code = 3111519741) HPF Lab Interpretation (test code = 93277-7) Abnormal [facility] / [facility] - DRUG SCREEN OQXFOQ2418-68-89 23:49:00* Test Item Value Reference Range Interpretation Comme nts BENZO U (test code = 4992356237) Presumptive Positive Negative A ARNOLD U (test code = 4804349370) Negative Negative AMPHET (test code = 0988827941) Negative Negative THC (test code = 2508623814) Negative Negative METHADONE (test code = 8801706429) Negative Negative Meth U (test code = 8861214453) Negative Negative OPIATES (test code = 4515784179) Negative Negative Cocaine Metabolite (test code = 8456532287) Negative Negative PROPOXY (test code = 3936200759) Negative Negative Tric U (test code = 6645422761) Negative Negative PCP (test code = 6064436028) Negative Negative OXYCOD (test code = 5054666295) Negative Negative YAMIL (test code = YAMIL) [...] legal testing). Lab Interpretation (test code = 76849-3) Abnormal [facility] WITH KHTKUSIGPIOL6298-84-89 23:34:00* Test Item Value Reference Range Interpretation [...] 34.0 g/dL 31.6-35.1 RDW-SD (test code = 30733-9) 42.4 fL 39-49.9 RDW-CV (test code = 788-0) 13.0 % 12-15.5 PLT (test code = 777-3) See_Comment [Automated messa ge] The system which generated this result transmitted reference range: 166 - 358 10*3/?L. The reference range was not used to interpret this result as normal/abnormal. MPV (test code = 01783-4) 9.7 fL 9.5-12.9 NRBC/100 WBC (test code = 7774624177) See_Comment [Automated [employer] ssage] The system which generated this result transmitted reference range: 0.0 - 10.0 /100 WBCs. The reference range was not used to interpret this result as normal/abnormal. NRBC x10^3 (test code = 3020639204) <0.01 See_Comment [Automated messa ge] The system which generated this result transmitted reference range: 10*3/?L. The reference range was not used to interpret this result as normal/abnormal. GRAN MAT (NEUT) % (test code = 770-8) 72.0 % IMM GRAN % (test code = 2155929932) 0.40 % LYMPH % (test code = 736-9) 21.6 % MONO % (test code = 5905-5) 3.9 % EOS % (test code = 713-8) 1.8 % BASO % (test code = 706-2) 0.3 % GRAN MAT x10^3(ANC) (test code = 1142625716) 8.22 10*3/uL 1.88-7.09 H IMM GRAN x10^3 (test code = 6586136731) 0.05 10*3/uL 0-0.06 LYMPH x10^3 (test code = 731-0) 2.47 10*3/uL 1.32-3.29 MONO x10^3 (test code = 742-7) 0.45 10*3/uL 0.33-0.92 EOS x10^3 (test code = 711-2) 0.20 10*3/uL 0.03-0.39 BASO x10^3 (test code = 704-7) 0.03 10*3/uL 0.01-0.07 Lab Interpretation (test code = 27015-1) Abnormal [facility] CenterRPR, Dtpw4219-94-46 14:45:00* Test Item Value Reference Range Interpretation Comme nts RPR (test code = RPR) Non-Reactive Non-Reactive N Thyroid Stimulating Hormone (TSH)2017-12-30 07:29:00* Test Item Value Reference Range Interpretation Comme nts TSH (test code = TSH) 2.42 mIU/mL 0.270-4.200 N BHCG, Serum, Ubwxvqkcemyv3802-91-77 07:29:00* Test Item Value Reference Range Interpretation Comme nts B hCG, Quant (test code = BHCGQT) <1 mIU/mL Weeks of Gestati on Ranges (mIU/mL)3 weeks 5.40 - 72.04 weeks 10.2 - 7085 weeks 217 - 93969 weeks 152 - 938659 weeks 4059 - 1489541 weeks 85058 - 7051329 weeks 65411 - 57281416 weeks 22149 - 90213544 weeks 90310 - 00687277 weeks 17289 - 3736019 weeks 22356 - 6472283 weeks 4504 - 3326625 weeks 0027 - 8264569 weeks 3258 - 71657 Lipid Gxzryen8710-80-17 07:19:00* Test Item Value Reference Range Interpretation Comme nts Cholesterol (test code = CHOL) 132 mg/dL 0-200 N Triglycerides (test code = TRIG) 122 mg/dL 9-200 N HDL (test code = HDL) 21 mg/dL 50-60 L Chol/HDL (test code = CHOLPHDL) 6.3 Ratio 0.0-4.4 H LDL, Calculated (test code = LDLC) 87 0-130 N (NOTE)RISK OF HEART DISEASEPublished by Bhutanese Heart AssociationAnalyte Optimal Boderline Increased RiskCHOL <200 200-239 >240TRIG <150 150-199 >200HDL Male: >60 <40HDL Female: >60 <50LDL <100 130-159 >160LDL NEAR OPTIMAL IS 100-129 VLDL (test code = VLDL) 24 mg/dL 5-40 N LDL/HDL (test code = LDLPHDL) 4 [id number] 04:24:00* Test Item Value Reference Range Interpretation [...] code = THC) POSITIVE Negative A Urinalysis Vekzvafq3681-78-47 03:47:00* Test Item Value Reference Range Interpretation Comme nts Color (test code = COLOR) [place] Yellow,Straw,Pl yellow A The value Morgan originally released by [employer] on 12/30/2017 03:42 waschanged to [place] by [employer] on 12/30/2017 03:47 Clarity (test code = CLAR) Sl Cloudy Clear A The value Clear originally released by [employer] on 12/30/2017 03:42 waschanged to Sl Cloudy by [employer] on 12/30/2017 03:47 Specific [place] (test code = SPGR) 1.006 1.001-1.035 N [...] code = BACT) Few /HPF Comprehensive Metabolic Svsut3651-97-93 01:00:00* Test Item Value Reference Range Interpretation [...] race is not provided, and the patient isAfrican-Bhutanese, multiply by 1.212. If sex is not [...] by the National Kidney Foundation,http://nkdep .nih.gov Alcohol/Ethanol, Jkcga4440-28-19 01:00:00* Test Item Value Reference Range Interpretation Comme nts Alcohol, Ethyl (test code = ETOH) <0.01 g/dL 0.00-0.01 N Intoxicated 0 .080 g/dL or more CBC with Cmereozbousx7317-55-44 00:45:00* Test Item Value Reference Range Interpretation [...] code = ALYMPH) 3.8 K/cumm 0.5-4.6 N [place] Abs (test code = AMONO) 0.5 K/cumm 0.0-1.2 N Eos Abs (test code = AEOS) 1.24 K/cumm 0.00-0.74 H Baso Abs (test code = ABASO) 0.1 K/cumm 0.00-0.21 N
[2024-12-13 00:10] LABS: Absolute Lymphocytes (CBC) 2.8 K/uL (0.7-4.9); Absolute Monocytes 0.5 K/uL (0.1-1.3); Absolute Neutrophil 7.1 K/uL (1.8-8.0); Basophils % 0.3 % (0-1.3); Eosinophils % 0.4 % (0-4.4); Hematocrit 35.2 % (36.0-45.0); Hemoglobin 11.7 g/dL (12.0-15.0); MCH 29.5 pg (27.0-35.0); MCHC 33.3 g/dL (32.0-36.0); MCV 88.8 fL (80-100); MPV 7.3 fL (7.6-11.3); Monocytes % 4.8 % (3.3-12.3); Neutrophils % 67.5 % (41.7-73.7); Platelets 363 thou/uL (152-406); RBC Red Blood Cell Count 3.96 M/uL (3.86-4.86); Red Cell Distribution Width 13.6 % (12.1-15.2)
[2024-12-13 00:12] LABS: Specific Gravity 1.016 (1.005-1.030)
[2024-12-13 00:13] LABS: Specific Gravity 1.016 (1.005-1.030); Sqamous Epithelial <5 /HPF (None Seen); Urine Bacteria None Seen /HPF (<20); Urine Bilirubin NEGATIVE (Negative); Urine Blood Negative (Negative); Urine Clarity Turbid (Clear); Urine Color Light-Yellow (Yellow); Urine Culture Reflex Order REFLEXED; Urine Glucose NEGATIVE (Negative); Urine Ketones 1+ (Negative); Urine Microscopic Reflex YN ORDER UMIC; Urine Mucus Slight /HPF (None Seen); Urine Nitrite NEGATIVE (Negative); Urine Protein TRACE (Negative); Urine Urobilinogen Normal (Normal); Urine pH 6.5 (5.0-7.0)
[2024-12-13] MEDS ORDERED: DIAZEPAM 10 MG/2 ML INJ SYRINGE ONE (00:13)
[2024-12-13 00:20] LABS: PT Prothrombin Time 12.3 SECONDS (9.4-12.5); PTT, Activated Partial Thromb 34.4 SECONDS (24.3-36.9); Protime INR 1.17
[2024-12-13 00:34] LABS: ALT/SGPT 17 U/L (13-56); AST/SGOT 15 U/L (15-37); Albumin 3.6 g/dL (3.4-5.0); Albumin/Globulin Ratio 0.9 (1.1-1.8); Alkaline Phosphatase 87 U/L (45-117); BUN Blood Urea Nitrogen 8 mg/dL (7-18); Barbiturates NEGATIVE (NEGATIVE); Benzodiazepines NEGATIVE (NEGATIVE); Bicarbonate 27 mEq/L (21-32); Bilirubin Total 0.4 mg/dL (0.2-1.0); Cocaine NEGATIVE (NEGATIVE); Globulin 3.8 g/dL (2.3-3.5); Glomerular Filtration Rate 114 ml/min (=/>90); Glucose Level 94 mg/dL (74-106); METHAMPHETAM POSITIVE (NEGATIVE); Methadone NEGATIVE (NEGATIVE); Opiates NEGATIVE (NEGATIVE); Phencyclidine NEGATIVE (NEGATIVE); Protein, Total 7.4 g/dL (6.4-8.2); Sodium Level 137 mEq/L (136-145); THC Cannibis NEGATIVE (NEGATIVE)
[2024-12-13 00:35] LABS: Bilirubin Direct < 0.2 mg/dL (0-0.2); Bilirubin Indirect, Calculated 0.2 mg/dL (0.2-0.8)
--- NOTE | 2024-12-13 01:34 | ER ---
Nurse's Notes [facility] Name: Miriam Fried Age: 44 yrs Sex: Female : 1980 Arrival Date: 12/12/2024 Time: 23:28 Bed 15 Private MD: Diagnosis: Suicidal ideations Presentation: 12/12 23:48 Chief complaint: Patient states: pt arrived ems with suicidal ideations..pt has a plan br2 to jump in front of traffic. Coronavirus screen: Client denies travel out of the [place] in the last 14 days. Ebola Screen: Patient denies exposure to infectious person. Initial Sepsis Screen: Does the patient meet any 2 criteria? Does the patient have a suspected source of infection? No. Patient's initial sepsis screen is negative. Risk Assessment: Do you want to hurt yourself or someone else? Patient reports no desire to harm self or others. Onset of symptoms is unknown. 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 - Infectious Disease History:: Denies. - Social history:: Smoking status: Patient denies any tobacco usage or history of. Screenin:35 [facility] ED Fall Risk Assessment (Adult) History of falling in the last 3 months, dd2 including since admission No falls in past 3 months (0 pts) Confusion or Disorientation Yes (5 pts) Intoxicated or Sedated Yes (3 pts) Impaired Gait No (0 pts) Mobility Assist Device Used No (0 pt) Altered Elimination No (0 pt) Score/Fall Risk Level 3 or more points = High Risk Oriented to surroundings, Maintained a safe environment, Educated pt \\T\\ family on fall prevention, incl call for assistance when getting out of bed, Assessed \\T\\ reinforced patient's understanding of fall precautions, Provided non-skid footwear, Hourly rounding (assess needs \\T\\ fall precautionary measures) done, Offered frequent toileting (1:1 observation), Remained with patient while ambulating, Utilized family, sitter, or virtual artists' booking representative as indicated. Abuse screen: Denies threats or abuse. Nutritional screening: No deficits noted. Tuberculosis screening: No symptoms or risk factors identified. Assessment: 12/12 23:50 Reassessment: personal items inventoried and given to security. dd2 12/13 00:30 General: Appears in no apparent distress. unkempt, Behavior is cooperative, appropriate dd2 for age, anxious. Pain: Denies pain. Neuro: Rogel Agitation-Sedation Scale (RASS): +2 Agitated Level of Consciousness is awake, alert, obeys commands, Oriented to person, place, time, Appropriate for age. Cardiovascular: No deficits noted. Patient's skin is warm and dry. Respiratory: No deficits noted. Airway is patent Respiratory effort is even, unlabored, Respiratory pattern is regular, symmetrical. GI: No deficits noted. No signs and/or symptoms were reported involving the gastrointestinal system. Abdomen is non-distended, Abd is soft and non tender. : No deficits noted. No signs and/or symptoms were reported regarding the genitourinary system. EENT: No deficits noted. No signs and/or symptoms were reported regarding the EENT system. Derm: No deficits noted. No signs and/or symptoms reported regarding the dermatologic system. Musculoskeletal: No deficits noted. No signs and/or symptoms reported regarding the musculoskeletal system. Circulation, motion, and sensation intact. Range of motion: intact in all extremities. 03:07 Reassessment: Report given to [facility]. dd2 Psych: 12/12 23:58 [place] Suicide Severity Screening: In the past month, have you wished you were dd2 or wished you could go to sleep and not wake up? Patient responds "yes." Based off the client's responses additional C-SSRS screening is required. "In the past month, have you actually had any thoughts of killing yourself?" Patient responds "yes." Based off the client's response additional [place] suicide severity screening questions to be further documented on paper forms. "In your lifetime, have you ever done anything, started to do anything, or prepared to do anything to end your life?" Patient responds "no." Patient responds "yes.". Subjective: Patient's mood is elevated, Delusions are denied, Hallucinations are auditory, visual, Having thoughts of suicide. Plan for suicide is PT REPORTS PLAN IS TO JUMP INTO TRAFFIC. Objective: Patient is cooperative, suspicious, Speech is rambling, rapid, Affect is appropriate. Interventions: Removed personal items and placed in bag. Searched person for dangerous items. Urine collected and sent for urine drug test. Belonging list filled out. PT PLACED IN PAPER SCRUBS. Safety Checks: Personal items have been removed. Door is open. Patient uses methamphetamines UNKNOWN. Commitment: Patient will be a voluntary commitment. Vital Signs: 23:48 BP 165 / 95; Pulse 68; Resp 18; Pulse Ox 99% ; Weight 72.57 kg; Height 5 ft. 4 in. ; br2 Pain 0/; 12/13 03:09 BP 153 / 87; Pulse 74; Resp 16; Pulse Ox 99% on R/A; dd2 04:09 BP 149 / 84; Pulse 79; Resp 16; Temp 98.2; Pulse Ox 99% on R/A; dd2 12/12 23:48 Body Mass Index 27.46 (72.57 kg, 162.56 cm) br2 12/12 23:48 Pain Scale: Adult br2 ED Course: 12/12 23:38 Patient arrived in ED. ec2 23:38 Vel Asher MD is Attending Physician. ec2 23:42 MILTON BOUDREAUX, RN is Primary Nurse. dd2 23:50 Triage completed. br2 12/13 00:15 Initial lab(s) drawn, by me, sent to lab. Urine collected: clean catch specimen, dd2 cloudy, EKG done, by ED staff, reviewed by Vel Asher MD. 00:30 Provided Education on: medication education. dd2 00:30 No provider procedures requiring assistance completed. Maintain EMS IV. Dressing dd2 intact. Good blood return noted. Site clean \\T\\ dry. Gauge \\T\\ site: 20g LAC. Flushed with 10 mL NS. 00:30 Patient maintains SpO2 saturation greater than 95% on room air. dd2 00:35 Patient has correct armband on for positive identification. Bed in low position. Side dd2 rails up X2. sitter at bedside, room cleared per Psych protocol, pt in paper scrubs, items removed from pt. Sitter at bedside. Door closed. Noise minimized. Lights dimmed. Warm blanket given. Pillow given. PO fluids given. Verbal reassurance given. Patient is placed in psych hold. 01:44 called for screening with [facility]. [facility] 03:00 faxed pt clinical's to various facilities. f 03:02 nurse to nurse [facility] [place] [place]. [facility] 03:10 pt was accepted to [facility] [place] [place]. Accepting Dr. Tangela restreop \\T\\ 0310. Accepting [facility] Barbara Caballero \\T\\0310. [facility] to transfer pt. 04:10 Arm band placed on right wrist. Patient placed in an exam room, on a stretcher. dd2 04:12 IV discontinued, intact, bleeding controlled, No redness/swelling at site. Pressure dd2 dressing applied. Administered Medications: 00:21 Drug: Diazepam IVP 10 mg IVP once Route: IVP; Site: left antecubital; dd2 00:36 Follow up: Response: No adverse reaction dd2 03:47 Drug: Potassium Chloride PO 40 mEq PO once Route: PO; dd2 04:14 Follow up: Response: No adverse reaction dd2 Medication: 00:35 VIS not applicable for this client. dd2 Outcome: 01:34 ER care complete, transfer ordered by . ec2 04:12 Transferred by ground EMS to other acute care facility: [place]. Transfer form dd2 completed. 04:12 Condition: stable 04:12 Instructed on the need for transfer, Demonstrated understanding of instructions, 04:13 Patient left the ED. dd2 Signatures: Vel Asher MD MD ec2 Pam Hercules [facility] Philly Yates RN RN br2 MILTON BOUDREAUX RN RN dd2
--- NOTE | 2024-12-13 01:34 | EDPHYS ---
Physician Documentation [facility] Name: Miriam Fried Age: 44 yrs Sex: Female : 1980 Arrival Date: 12/12/2024 Time: 23:28 Bed 15 Private MD: ED Physician Vel Asher HPI: 12/12 23:56 This 44 yrs old Female presents to ER via EMS with complaints of Psych ec2 Problem. 23:56 Patient with history of substance abuse arrives today for suicidal ideation. States ec2 that she been having some personal issues and wants to run into traffic. Reports meth abuse as well.. 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 - Infectious Disease History:: Denies. - Social history:: Smoking status: Patient denies any tobacco usage or history of. ROS: 12/12 23:56 Constitutional: as per hpi ec2 Exam: 23:56 Constitutional: GEN: NAD Head: atraumatic Eyes: EOMI Ears: External ears are ec2 normal. CV: regular rate LUNGS: no respiratory distress ABD: non-distended SKIN: no evidence of rashes MSK: no evidence of trauma. Psych: Cooperative individual who endorses suicidality who is tearful. Vital Signs: 23:48 BP 165 / 95; Pulse 68; Resp 18; Pulse Ox 99% ; Weight 72.57 kg; Height 5 ft. 4 in. ; br2 Pain 0/10; 12/13 03:09 BP 153 / 87; Pulse 74; Resp 16; Pulse Ox 99% on R/A; dd2 04:09 BP 149 / 84; Pulse 79; Resp 16; Temp 98.2; Pulse Ox 99% on R/A; dd2 12/12 23:48 Body Mass Index 27.46 (72.57 kg, 162.56 cm) br2 12/12 23:48 Pain Scale: Adult br2 MDM: 12/12 23:38 Medical Screening Exam initiated ec2 23:57 Data reviewed: vital signs, nurses notes. ED course: Patient arrives today d/t concern ec2 for SI. Exam remarkable for psych eval as above. Will obtain psych labs, give pt valium as well. . 12/13 00:07 ED course: EKG independently reviewed and interpreted by me, shows sinus tachycardia, ec2 rate of 123, no acute ST segment elevations, intervals are nonactionable.. 01:34 ED course: CT abdomen pelvis shows lab work is pertinent for positive meth status. ec2 Patient appropriate for transfer to psychiatric facility for suicidal ideation.. 02:41 ED course: I discussed the case with [facility] who recommends inpatient. I agree ec2 patient has poor outpatient follow-up, is impulsive and has no social support.. 12/12 23:39 Order name: Acetaminophen; Complete Time: 01:32 ec2 12/12 23:39 Order name: Basic Metabolic Panel; Complete Time: :32 ec2 12/12 23:39 Order name: CBC with Diff; Complete Time: 00:15 ec2 12/12 23:39 Order name: ETOH Level; Complete Time: :32 ec2 12/12 23:39 Order name: Hepatic Function; Complete Time: :32 ec2 12/12 23:39 Order name: PT-INR; Complete Time: :32 ec2 12/12 23:39 Order name: Test, Urine; Complete Time: 00:15 ec2 12/12 23:39 Order name: Ptt, Activated; Complete Time: :32 ec2 12/12 23:39 Order name: Salicylate; Complete Time: :32 ec2 12/12 23:39 Order name: Urinalysis w/ reflexes; Complete Time: 00:15 ec2 12/12 23:39 Order name: Urine Drug Screen; Complete Time: :32 ec2 12/13 00:16 Order name: Urine Culture EDAR 12/12 23:39 Order name: EKG; Complete Time: 23:39 ec2 12/12 23:39 Order name: EKG - Nurse/Tech; Complete Time: 00:09 ec2 12/12 23:39 Order name: IV Saline Lock; Complete Time: 00:09 ec2 12/12 23:39 Order name: Labs collected and sent; Complete Time: 00:09 ec2 12/12 23:39 Order name: Suicide Precautions; Complete Time: 00:09 ec2 12/12 23:39 Order name: Suicide Screening ([place]); Complete Time: 00:09 ec2 Administered Medications: 00:21 Drug: Diazepam IVP 10 mg IVP once Route: IVP; Site: left antecubital; dd2 00:36 Follow up: Response: No adverse reaction dd2 03:47 Drug: Potassium Chloride PO 40 mEq PO once Route: PO; dd2 04:14 Follow up: Response: No adverse reaction dd2 Disposition Summary: 12/13/24 01:34 Transfer Ordered Notes: Transfer Location: [facility] ec2 Reason: Higher level of care ec2 Condition: Stable ec2 Problem: an ongoing problem ec2 Symptoms: are unchanged ec2 Accepting Physician: transferring doc(12/13/24 04:13) dd2 Diagnosis - Suicidal ideations ec2 Forms: - Medication Reconciliation Form ec2 - SBAR form ec2 Signatures: Dispatcher [employer] EDVel Ngo MD MD ec2 MILTON BOUDREAUX RN RN dd2 Corrections: (The following items were deleted from the chart) 04:13 01:34 transferring doc ec2 dd2
[2024-12-13] MEDS ORDERED: POTASSIUM CL SA 10 MEQ TAB PO ONE (03:45)
[2024-12-13 07:07] VITALS: O2SAT 99
[2024-12-13 07:09] VITALS: BP 149/84; TEMP 98.2
--- NOTE | 2024-12-13 12:41 | EKG ---
Test Date: 2024-12-12 Test Time: 23:52:55 Supervisor Speech: ROSA MEASUREMENT RESULTS: Intervals: Rate: 123 GA: 130 QRSD: 80 QT: 332 QTc: 475 [place]: P: 73 GA: 130 QRS: 66 T: 30 INTERPRETIVE STATEMENTS: Sinus tachycardia Septal infarct, age undetermined Abnormal ECG Compared to ECG 04/08/2024 03:59:13 No significant changes Electronically Signed On 12-13-24 12:40:29 OFFICE MACHINE TECHNICIAN by Cullen Gutiérrez
== END 2024-12-13 04:13 ==
LOC: ER 23:28
DX: R45.851 Suicidal ideations (principal); F20.9 Schizophrenia, unspecified
CPT/HCPCS: 36415; 80048; 80076; 80143; 80179; 80307; 81001; 81025; 82077; 85025; 85610; 85730; 87086; 87088; 93005; 96374; 99285; J3360

== ENCOUNTER 2025-02-25 11:17 | Emergency (ER) | payer SELFPAY ==
--- OUTSIDE RECORDS SUMMARY | 2025-02-25 11:24 | XMS REPORT | Continuity of Care Document ---
Author Name Unknown Address [address] [facility] [address] [place] [address] [facility] [place] Address [address] [facility] [address] [place] [address] Care Team Providers Care Forensic Artist Name Role Phone Jacqueline Ward Primary Care Physician Sherman Collazo Attending Clinician Unavailable Rj Diez Attending Clinician Unavailab Rj Hardwick Attending Clinician Unavailab WILLIAM Nicole Attending Clinician Unavail BILLIE Meza Attending Clinician Unavailable BILLIE NINO Attending Clinician Unavailable Oswaldo Davis MD Attending Clinician [phone] OSWALDO DAVIS Attending Clinician UnavailOSWALDO Del Rosario Attending Clinician UnavailMARI Carson Attending Clinician Unavailable Mari Herndon MD Attending Clinician [phone] BRIGITTE RIVERO Attending Clinician Unavailab Brigitte Strickland Attending Clinician [phone] Alisa Spann RN Attending Clinician Unavailangelica e [email or web address]_S Attending Clinician Unavaila JYOTI Pavon Attending Clinician Unavailable SEPIDEH PALMER Attending Clinician Unavailab Sepideh Martini DO Attending Clinician [phone] MIGUEL A NATH Attending Clinician Unavailable Miguel A Nath MD Attending Clinician [phone] Doctor Unassigned, [place] Attending Clinician U GAGE Bowden Attending Clinician Unavailable Felipe SMILEY, Gage Holloway Attending Clinician [phone] Ultrasound, [facility] Attending Clinician Unavailchino Campos MD, Cheikh Zamudio Attending Clinician [phone] Fellow, [facility] Attending Clinician Un available Hussein SMILEY, Morro Hoover Attending Clinician +[phone] Ellis SMILEY, Olga Lidia Smith Attending Clinician [phone] Sanjana Sierra PA-C Attending Clinician [phone] Edson Emanuel Attending Clinician + [phone] Edson CHAMBERS Attending Clinician Unavailable Faculty, [facility] Attending Clinician Unamaxx Mark MD, Porter Bar Attending Clinician [phone] NORMA ZHANG M.D., NORMA Smith M.D. Attendin g Clinician Unavailable GAGE REID Admitting Clinician Unavailable Sherman Collazo Admitting Clinician Unavailable Rj Diez Admitting Clinician Unavailab matthew [email or web address]_S Admitting Clinician Unavailchino Reid MD, Gage Holloway Admitting Clinician [phone] NORMA ZHANG M.D., NORMA Smith Admitting Clin ician Unavailable Payers Payer Name Policy Type Policy Number Effective Date Expirati on Date Source [facility] MEDICAID [id number] 2020 00:00:00 [facility] [id number] [id number] 00:00:00 [facility] ([facility] [id number] MEDICAID OF [place] [id number] 2020 00:00:00 Problems Condition Name Condition Details Condition Category Status Onset Date Resolution Date Last Treatment Date Treating Clinician Comments Source 39 weeks gestation of 39 weeks gestation of Disease Active 2019-11 00:00: 00 [facility] QT prolongati on QT prolongati on Disease Active 2019-11 00:00: 00 [facility] Obesity (BMI 30-39.9) Obesity (BMI 30-39.9) Disease Active 2019-11 00:00: 00 [facility] Insufficie nt care in third trimester Insufficie nt care in third trimester Disease Active 2019-11 00:00: 00 [facility] Severe episode of recurrent major depressive disorder, 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, without psychotic features Disease Active 03-15 00:00: 00 [facility] Supervisio n of high risk in third trimester Supervisio n of high risk in third trimester Disease Active 03-15 00:00: 00 [facility] History of cardiac arrest History of cardiac arrest Disease Active 03-15 00:00: 00 [facility] Anxiety disorder, unspecifie d type Anxiety disorder, unspecifie d type Disease Active 03-15 00:00: 00 [facility] History of drug abuse History of drug abuse Disease Active 03-15 00:00: 00 [facility] History of herpes genitalis History of herpes genitalis Disease Active 03-15 00:00: 00 [facility] Previous section Previous section Disease Active 03-15 00:00: 00 [facility] Medication exposure during first trimester of Medication exposure during first trimester of Disease Active 03-15 00:00: 00 [facility] Smoking Smoking Disease Active 03-15 00:00: 00 [facility] Abdominal pain, epigastric Abdominal pain, epigastric Disease Resolve d 2010-0 4-27 00:00: 00 2020-03-15 00:00:00 2020-03-15 11:21:38 [facility] Allergies, Adverse Reactions, Alerts Allergy Name Allergy Type Status Severity Reaction(s) Onset Date Inactive Date Treating Clinician Comments Source PENICILL IN DRUG INGREDI Active Unknown-Cmnt 6-08 00:00: 00 [facility] SULFAMET HOXAZOLE -TRIMETH OPRIM DRUG Active Swelling 04-09 00:00: 00 [facility] Sulfamet hoxazole -Trimeth oprim Propensi ty to adverse reaction s Active Swelling 04-09 00:00: 00 [facility] Penicill in Propensi ty to adverse reaction s Active Unknown - See comments 04-09 00:00: 00 [facility] morphine DA Active SV 12-22 00:00: 00 [facility] morphine DA Active SV "HEART STOPPED" 12-22 00:00: 00 [facility] MORPHINE DRUG INGREDI Active Unknown-Cmnt 2010-11 00:00: 00 [facility] Morphine Propensi ty to adverse reaction s Active Unknown - See comments 2010-11 00:00: 00 Per patient she went into cardiac arrest after receiving morphine at the hospital March 2011 [facility] morphine Drug Active [facility] morphine Drug Active [facility] morphine Drug Active [facility] morphine Drug Active [facility] morphine Drug Active [facility] morphine Drug Active [facility] morphine Drug Active [facility] morphine Drug Active [facility] morphine Drug Active [facility] morphine Drug Active [facility] morphine Drug Active [facility] morphine Drug Active [facility] morphine Drug Active [facility] Social History Social Habit Start Date Stop Date Quantity Comments Source ASSERTION 2019-12-22 00:00:00 [facility] of tobacco use Cigarette Smoker [facility] Tobacco use and exposure 2024-05-26 00:00:00 2024-05-26 00:00:00 Smokeless tobacco non-user [facility] History of Social function 2024-05-26 00:00:00 2024-05-26 00:00:00 [facility] Alcoholic beverage intake 2024-05-26 00:00:00 2024-05-26 00:00:00 Current drinker of alcohol (finding) [facility] Alcohol intake 2023-05-01 00:00:00 2023-05-01 00:00:00 Current drinker of alcohol (finding) [facility] Exposure to SARS-CoV-2 (event) 2023-01-03 00:00:00 2023-01-13 21:35:00 Not sure [facility] Cigarettes smoked current (pack per day) - Reported 2020-03-15 00:00:00 2020-03-15 00:00:00 [facility] Sex assigned at 1980 00:00:00 1980 00:00:00 [facility] Smoking Status Start Date Stop Date Source Smokes tobacco daily 2024-05-26 00:00:00 [facility] Medications Ordered Medication Name Filled Medication Name Start Date Stop Date Current Medication? Ordering Clinician Indication Dosage Frequency Signature (SIG) Comments Components Source metoprolol succinate ER 50 mg tablet,exte nded release 24 hr 02-22 00:00: 00 Yes 1mg Freddy Castillo gabapentin 300 mg capsule 01-16 00:00: 00 Yes mg Freddy Castillo fluoxetine 20 mg capsule -17 00:00: 00 Yes mg Freddy Castillo aripiprazol e 5 mg tablet 01-16 00:00: 00 Yes mg Freddy Castillo levoFLOXaci n (LEVAQUIN) tablet 750 mg 04-15 19:15: 00 04-15 18:39 :00 No 750mg 750 mg, Oral, ONCE NOW, 1 dose, On Thu04/15/24 at 1415, CHRISTY, Reason for Anti-Infec tive: Documented Infection, Documented Infection Site: Urine, Duration of Therapy: Once (ED) [facility] ALPRAZolam (XANAX) tablet 1 mg 04-15 18:45: 00 04-15 18:39 :00 No 1mg 1 mg, Oral, ONCE, 1 dose, On Thu04/15/24 at 1345, CHRISTY [facility] NaCl 0.9% (NS) bolus infusion 1,000 mL 04-15 17:45: 00 04-15 18:48 :00 No 1000mL at 999 mL/hr, 1,000 mL, IV Piggyback, ONCE, 1 dose, On Thu04/15/24 at 1245, STAT [facility] ciprofloxac in HCl 500 mg tablet 04-15 00:00: 00 04-23 04:59 :00 No [id number] 500mg Take 1 tablet by mouth in the morning and 1 tablet in the evening. Do all this for 7 days. [facility] alprazolam 2 mg tablet 03-11 00:00: 00 Yes mg Freddy Castillo NaCl 0.9% (NS) bolus infusion 1,000 mL 05-01 19:00: 00 05-01 19:10 :00 No 1000mL at 999 mL/hr, 1,000 mL, IV Infusion, ONCE, 1 dose, On Thu05/01/23 at 1400, [facility] ondansetron (ZOFRAN (PF)) injection 4 mg 05-01 19:00: 00 05-01 18:53 :00 No 4mg 4 mg, Slow IV Push, ONCE, 1 dose, On Thu05/01/23 at 1400, [facility] cefTRIAXone (ROCEPHIN) 1,000 mg in NaCl 0.9% (NS) 100 mL MINI-BAG 05-01 18:15: 00 05-01 18:43 :00 No 1000mg 1,000 mg, IV Piggyback, ONCE, 1 dose, On Thu05/01/23 at 1315, Administer over 30 Minutes, 100 mL
Reas on for Anti-Infec tive: Documented Infection< br>Documen bhavya Infection Site: Urine
D uration of Therapy: 7 days [facility] NaCl 0.9% (NS) bolus infusion 1,000 mL 05-01 17:30: 00 05-01 18:14 :00 No 1000mL at 999 mL/hr, 1,000 mL, IV Infusion, ONCE, 1 dose, On Thu05/01/23 at 1230, [facility] ondansetron 4 mg disintegrat ing tablet 30 00:00: 00 Yes [id number] 4mg Take 1 tablet by mouth every 8 (eight) hours as needed for Nausea and Vomiting (N/V). [facility] sulfamethox azole-trime thoprim 800-160 mg per tablet 630 00:00: 00 05-07 04:59 :00 No [id number] 1{tbl} Take 1 tablet by mouth every 12 (twelve) hours for 5 days. [facility] TRIAZOLAM 4-11 00:00: 00 Yes Freddy Castillo AMPHET/DEXT R 15MG Tablets 4-04 00:00: 00 Yes Freddy Castillo ARIPIPRAZOL E 30 00:00: 00 Yes Freddy Castillo OSELTAMIVIR 0 3-22 00:00: 00 Yes Freddy Castillo GABAPENTIN 0 3-09 00:00: 00 Yes Freddy Castillo FLUOXETINE 0 3-06 00:00: 00 Yes Freddy Castillo TAKE 1 TABLET BY MOUTH THREE TIMES A DAY 0 2-20 00:00: 00 Yes Freddy Castillo ZOLPIDEM ER 2022-0 2-14 00:00: 00 Yes Freddy Castillo FLUOXETINE 2022-0 1-19 00:00: 00 Yes Freddy Castillo ZOLPIDEM 2022-0 1-18 00:00: 00 Yes Freddy Castillo IBUPROFEN 2022-0 1-17 00:00: 00 Yes Freddy Castillo AMOXICILLIN 2022-0 1-17 00:00: 00 Yes Freddy Castillo CLINDAMYCIN 2022-0 1-12 00:00: 00 Yes Freddy Castillo TAKE 1 TABLET BY MOUTH EVERY 6 HOURS NEEDED 2022-0 1-12 00:00: 00 Yes Freddy Castillo ARIPIPRAZOL E 2022-0 1-11 00:00: 00 Yes Freddy Castillo CLONAZEPAM 2021- 2-22 00:00: 00 Yes Freddy Castillo TAKE 1 TABLET BY MOUTH THREE TIMES A DAY 2021-1 2-19 00:00: 00 Yes 5 Freddy Castillo GABAPENTIN 2021-11 2-12 00:00: 00 Yes Freddy Castillo FLUOXETINE 1 2-10 00:00: 00 Yes Freddy Castillo ZOLPIDEM 2021-11 1-18 00:00: 00 Yes Freddy Castillo TAKE 1 TABLET BY MOUTH EVERY DAY 1 1-15 00:00: 00 Yes 20 Freddy Castillo TAKE 1 TABLET BY MOUTH EVERY DAY 1 1-15 00:00: 00 Yes Freddy Castillo TAKE 1 CAPSULE BY MOUTH EVERY DAY 2021-11 1-04 00:00: 00 Yes 40 Freddy Castillo LATUDA 1 0-12 00:00: 00 Yes 20 Freddy Castillo METRONIDAZO L 2021-0 9-30 00:00: 00 Yes 500 Freddy Castillo TAKE 1 CAPSULE BY MOUTH EVERY DAY 0 9-13 00:00: 00 Yes Freddy Castillo LATUDA 2021-0 9-13 00:00: 00 Yes 20 Freddy Castillo MEDROXYPR AC INJ /ML 2021-0 9-12 00:00: 00 Yes 150 Freddy Castillo ARIPIPRAZOL E 2021-0 9-01 00:00: 00 Yes 20 Freddy Castillo HYDROXYZ AJAY 2021-0 9-01 00:00: 00 Yes 50 Freddy Castillo MIRTAZAPINE 2021-0 9-01 00:00: 00 Yes 30 Freddy Castillo Dose Unknown 2020-0 8-05 00:00: 00 Yes Freddy Castillo Dose Unknown 2020-0 7-27 00:00: 00 Yes Freddy Castillo Dose Unknown 2020-0 7-27 00:00: 00 Yes Freddy Castillo Dose Unknown 2020-0 7-27 00:00: 00 Yes Freddy Castillo Dose Unknown 2020-0 7-27 00:00: 00 Yes Freddy Castillo Dose Unknown 1-0 7-27 00:00: 00 Yes Freddy Castillo risperiDONE 2 mg tablet 2019-11 01:27: 56 Yes 2mg Take 2 mg by mouth daily. [facility] SERTraline (ZOLOFT) 50 mg tablet 2019-11 01:27: 56 Yes 50mg Take 50 mg by mouth daily. [facility] D5W-LR IV infusion 1,000 mL 2019-11 00:45: 00 Yes 1000mL at 125 mL/hr, IV Infusion, CONTINUOUS , Starting Thu09/12/20 at 1845, Until Discontinu ed, Routine [facility] risperiDONE 2 mg tablet 2019-11 19:27: 56 Yes 2mg Take 2 mg by mouth daily. [facility] SERTraline (ZOLOFT) 50 mg tablet 2019-11 19:27: 56 Yes 50mg Take 50 mg by mouth daily. [facility] risperiDONE 2 mg tablet 2019-11 01:35: 11 Yes 2mg Take 2 mg by mouth daily. [facility] SERTraline (ZOLOFT) 50 mg tablet 2019-11 01:35: 11 Yes 50mg Take 50 mg by mouth daily. [facility] D5W-LR IV infusion 1,000 mL 2019-11 00:45: 00 Yes 1000mL at 125 mL/hr, IV Infusion, CONTINUOUS , Starting Thu09/10/20 at 1845, Until Discontinu ed, Routine [facility] PNV 102-iron-fo late 1-dss-dha (VITAFOL FE+, WITH DOCUSATE,) 90 mg iron-1 mg -50 mg-200 mg Cap 03-15 00:00: 00 Yes [id number] Take 1 TAB-CAP/M2 by mouth daily. [facility] PNV 102-iron-fo late 1-dss-dha (VITAFOL FE+, WITH DOCUSATE,) 90 mg iron-1 mg -50 mg-200 mg Cap 03-15 00:00: 00 Yes [id number] Take 1 TAB-CAP/M2 by mouth daily. [facility] LORazepam (ATIVAN) tablet 2 mg 06-23 02:00: 00 06-23 00:55 :00 No 2mg 2 mg, Oral, ONCE, 1 dose, Thu06/22/19 at 2100, CHRISTY [facility] gabapentin 300 mg capsule 06-22 00:00: 00 07-23 04:59 :00 No [id number] 300mg Take 1 capsule by mouth 2 (two) times daily for 30 days. [facility] Zoloft 50 mg tablet 12-18 00:00: 00 Yes 1mg Freddy Castillo hydroxyzine HCl 50 mg tablet 12-18 00:00: 00 Yes 1mg Freddy Castillo KCL (K-DUR) 20 mEq tablet 2010-11 00:00: 00 03-15 00:00 :00 No 40meq Take 2 Tabs by mouth daily. [facility] metoprolol tartrate (LOPRESSOR) 25 mg tablet 2010-11 00:00: 00 03-15 00:00 :00 No 12.5mg Take 0.5 Tabs by mouth 2 (two) times daily. [facility] magnesium oxide (MAG-OX 400) 400 mg tablet 2010-11 00:00: 00 03-15 00:00 :00 No 800mg Take 2 Tabs by mouth 3 (three) times daily. [facility] FLUoxetine (PROZAC) 20 mg capsule 06-06 00:00: 09-10 00:00 :00 No 20mg Take 1 Cap by mouth daily. [facility] clonazePAM (KLONOPIN) 0.5 mg tablet 06-06 00:00: 00 03-15 00:00 :00 No .5mg Take 1 Tab by mouth 3 (three) times daily. [facility] calcium carbonate (OSCAL-500) 500 mg (1,250 mg) tablet 03-14 00:00: 00 03-15 00:00 :00 No 500mg Take 1 Tab by mouth 3 (three) times daily with meals. [facility] ferrous sulfate 325 mg (65 mg Iron) tablet 03-14 00:00: 00 03-15 00:00 :00 No 325mg Take 1 Tab by mouth 3 (three) times daily with meals. [facility] nicotine (NICODERM) 21 mg/24 hr patch 03-14 00:00: 00 03-15 00:00 :00 No 1{patch } Apply 1 Patch to area(s) every 24 (twenty-fo ur) hours. [facility] thiamine (VITAMIN B1) 100 mg tablet 03-14 00:00: 00 03-15 00:00 :00 No 100mg Take 1 Tab by mouth daily. [facility] vitamin w/FA ( RX OR GENERIC EQUIVALENT) tablet 03-14 00:00: 00 03-15 00:00 :00 No 1{tbl} Take 1 Tab by mouth daily. [facility] Vital Signs Vital Name Observation Time Observation Value Comments S ource Height/Length Measured 2020-07-25 11:28:48 Systolic blood pressure 2024-04-15 18:30:00 127 mm[Hg] [facility] Diastolic blood pressure 2024-04-15 18:30:00 77 mm[Hg] [facility] Respiratory rate 2024-04-15 18:30:00 20 /min [facility] Oxygen saturation in Arterial blood by Pulse oximetry 2024-04-15 18:30:00 98 /min [facility] Heart rate 2024-04-15 17:30:00 100 /min [facility] Body height 2024-04-15 16:39:00 152.4 cm [facility] Body weight 2024-04-15 16:39:00 69.854 kg [facility] BMI 2024-04-15 16:39:00 30.08 kg/m2 [facility] Body temperature 2024-04-15 16:35:00 36.56 Lien [facility] Systolic blood pressure 2024-04-09 15:00:00 128 mm[Hg] [facility] Diastolic blood pressure 2024-04-09 15:00:00 69 mm[Hg] [facility] Heart rate 2024-04-09 15:00:00 116 /min [facility] Respiratory rate 2024-04-09 15:00:00 16 /min [facility] Oxygen saturation in Arterial blood by Pulse oximetry 2024-04-09 15:00:00 100 /min [facility] Body temperature 2024-04-09 14:34:00 37 Lien [facility] Body height 2024-04-09 14:34:00 162.6 cm [facility] Body weight 2024-04-09 14:34:00 69.854 kg [facility] BMI 2024-04-09 14:34:00 26.43 kg/m2 [facility] Systolic blood pressure 2023-05-01 18:15:22 148 mm[Hg] [facility] Diastolic blood pressure 2023-05-01 18:15:22 73 mm[Hg] [facility] Heart rate 2023-05-01 18:15:22 93 /min [facility] Respiratory rate 2023-05-01 18:15:22 16 /min [facility] Oxygen saturation in Arterial blood by Pulse oximetry 2023-05-01 18:15:22 100 /min [facility] Body temperature 2023-05-01 16:33:00 36.44 Lien [facility] Body weight 2023-05-01 16:33:00 90.719 kg [facility] BMI 2023-05-01 16:33:00 34.33 kg/m2 [facility] Systolic blood pressure 2023-01-14 02:37:00 133 mm[Hg] [facility] Diastolic blood pressure 2023-01-14 02:37:00 65 mm[Hg] [facility] Heart rate 2023-01-14 02:37:00 89 /min [facility] Body temperature 2023-01-14 02:37:00 37.44 Lien [facility] Respiratory rate 2023-01-14 02:37:00 18 /min [facility] Body height 2023-01-14 02:37:00 162.6 cm [facility] Body weight 2023-01-14 02:37:00 90.719 kg [facility] BMI 2023-01-14 02:37:00 34.33 kg/m2 [facility] Oxygen saturation in Arterial blood by Pulse oximetry 2023-01-14 02:37:00 96 /min [facility] Systolic blood pressure 2020-09-12 23:45:00 128 mm[Hg] [facility] Diastolic blood pressure 2020-09-12 23:45:00 66 mm[Hg] [facility] Heart rate 2020-09-12 23:45:00 97 /min [facility] Body temperature 2020-09-12 23:45:00 36.61 Lien [facility] Respiratory rate 2020-09-12 21:30:00 18 /min [facility] Oxygen saturation in Arterial blood by Pulse oximetry 2020-09-12 21:30:00 92 /min [facility] Body height 2020-09-12 20:00:00 162.6 cm [facility] Body weight 2020-09-12 20:00:00 90.719 kg [facility] BMI 2020-09-12 20:00:00 34.33 kg/m2 [facility] Systolic blood pressure 2020-09-12 23:45:00 128 mm[Hg] [facility] Diastolic blood pressure 2020-09-12 23:45:00 66 mm[Hg] [facility] Heart rate 2020-09-12 23:45:00 97 /min [facility] Body temperature 2020-09-12 23:45:00 36.61 Lien [facility] Respiratory rate 2020-09-12 21:30:00 18 /min [facility] Oxygen saturation in Arterial blood by Pulse oximetry 2020-09-12 21:30:00 92 /min [facility] Body height 2020-09-12 20:00:00 162.6 cm [facility] Body weight 2020-09-12 20:00:00 90.719 kg [facility] BMI 2020-09-12 20:00:00 34.33 kg/m2 [facility] Heart rate 2020-09-11 00:51:00 82 /min [facility] Oxygen saturation in Arterial blood by Pulse oximetry 2020-09-11 00:51:00 98 /min [facility] Systolic blood pressure 2020-09-11 00:30:00 91 mm[Hg] [facility] Diastolic blood pressure 2020-09-11 00:30:00 73 mm[Hg] [facility] Body temperature 2020-09-10 23:46:00 36.5 Lien [facility] Respiratory rate 2020-09-10 23:46:00 18 /min [facility] Body height 2020-09-10 23:46:00 162.6 cm [facility] Body weight 2020-09-10 23:46:00 90.992 kg [facility] BMI 2020-09-10 23:46:00 34.43 kg/m2 [facility] Systolic blood pressure 2020-09-10 22:35:00 133 mm[Hg] [facility] Diastolic blood pressure 2020-09-10 22:35:00 72 mm[Hg] [facility] Heart rate 2020-09-10 22:27:00 104 /min [facility] Body temperature 2020-09-10 22:27:00 36.72 Lien [facility] Respiratory rate 2020-09-10 22:27:00 18 /min [facility] Body height 2020-09-10 22:27:00 162.6 cm [facility] Body weight 2020-09-10 22:27:00 90.992 kg [facility] BMI 2020-09-10 22:27:00 34.43 kg/m2 [facility] Height/Length Measured 2021-11-19 12:39:49 162.56 [...] Systolic blood pressure 2020-03-15 13:32:00 129 mm[Hg] [facility] Diastolic blood pressure 2020-03-15 13:32:00 71 mm[Hg] [facility] Heart rate 2020-03-15 13:32:00 85 /min [facility] Body temperature 2020-03-15 13:32:00 36.78 Lien [facility] Respiratory rate 2020-03-15 13:32:00 18 /min [facility] Body height 2020-03-15 13:32:00 162.6 cm [facility] Body weight 2020-03-15 13:32:00 78.926 kg [facility] BMI 2020-03-15 13:32:00 29.87 kg/m2 [facility] Systolic blood pressure 2020-03-07 01:00:00 114 mm[Hg] [facility] Diastolic blood pressure 2020-03-07 01:00:00 55 mm[Hg] [facility] Heart rate 2020-03-07 01:00:00 99 /min [facility] Body temperature 2020-03-07 01:00:00 36.67 Lien [facility] Respiratory rate 2020-03-07 01:00:00 20 /min [facility] Oxygen saturation in Arterial blood by Pulse oximetry 2020-03-07 01:00:00 98 /min [facility] Body weight 2020-03-06 23:00:00 68.04 kg [facility] BMI 2020-03-06 23:00:00 25.75 kg/m2 [facility] Body height 2020-03-06 22:57:00 162.6 cm [facility] Systolic blood pressure 2019-06-23 02:08:00 146 mm[Hg] [facility] Diastolic blood pressure 2019-06-23 02:08:00 89 mm[Hg] [facility] Heart rate 2019-06-23 02:08:00 130 /min made aware [facility] Body temperature 2019-06-23 02:08:00 36.72 Lien [facility] Respiratory rate 2019-06-23 02:08:00 18 /min [facility] Oxygen saturation in Arterial blood by Pulse oximetry 2019-06-23 02:08:00 95 /min [facility] Body weight 2019-06-23 00:05:00 68.04 kg [facility] BMI 2019-06-23 00:05:00 25.75 kg/m2 [facility] Systolic blood pressure 2019-06-10 19:43:00 117 mm[Hg] [facility] Diastolic blood pressure 2019-06-10 19:43:00 66 mm[Hg] [facility] Heart rate 2019-06-10 19:43:00 110 /min [facility] Body temperature 2019-06-10 19:43:00 37.06 Lien [facility] Respiratory rate 2019-06-10 19:43:00 18 /min [facility] Body weight 2019-06-10 19:43:00 63.504 kg [facility] BMI 2019-06-10 19:43:00 24.03 kg/m2 [facility] Oxygen saturation in Arterial blood by Pulse oximetry 2019-06-10 19:43:00 97 /min [facility] BP Systolic 2025-02-22 14:26:00 136 mm[Hg] Freddy Castillo BP Diastolic 2025-02-22 14:26:00 77 mm[Hg] Freddy Castillo Weight Measured 2025-02-22 14:26:00 160.40 pounds Freddy Castillo Height Measured 2025-02-22 14:26:00 64.00 inches Freddy Castillo Body Temperature 2025-02-22 14:26:00 97.60 degrees Freddy Castillo Heart Rate 2025-02-22 14:26:00 100.00 /min Freddy Castillo Respiratory Rate 2025-02-22 14:26:00 18.00 /min Freddy Castillo Body Temperature 2025-02-10 10:45:00 98.30 degrees Freddy Castillo Heart Rate 2025-02-10 10:45:00 84.00 /min Freddy Castillo Respiratory Rate 2025-02-10 10:45:00 18.00 /min Freddy Castillo BP Systolic 2025-02-10 10:45:00 131 mm[Hg] Freddy F Jonathan BP Diastolic 2025-02-10 10:45:00 81 mm[Hg] Freddy F Jonathan Weight Measured 2025-02-10 10:45:00 159.20 pounds Freddy Castillo Height Measured 2025-02-10 10:45:00 64.00 inches Freddy F Jonathan Respiratory Rate 2021-06-03 08:22:00 17.00 /min Freddy F Jonathan BP Systolic 2021-06-03 08:22:00 144 mm[Hg] Freddy F Jonathan BP Diastolic 2021-06-03 08:22:00 83 mm[Hg] Freddy F Jonathan Weight Measured 2021-06-03 08:22:00 210.00 pounds Freddy F Jonathan Height Measured 2021-06-03 08:22:00 64.00 inches Freddy Castillo Body Temperature 2021-06-03 08:22:00 98.20 degrees Freddy F Jonathan Heart Rate 2021-06-03 08:22:00 82.00 /min Freddy F Jonathan BP Systolic 2021-05-28 11:19:00 118 mm[Hg] Freddy F Jonathan BP Diastolic 2021-05-28 11:19:00 78 mm[Hg] Freddy F Jonathan Weight Measured 2021-05-28 11:19:00 205.00 pounds Freddy Castillo Height Measured 2021-05-28 11:19:00 64.00 inches Freddy Castillo Body Temperature 2021-05-28 11:19:00 98.20 degrees Freddy F Jonathan Heart Rate 2021-05-28 11:19:00 84.00 /min Freddy Castillo Respiratory Rate 2021-05-28 11:19:00 Freddy Castillo BP Systolic 2017-12-18 11:50:00 121 mm[Hg] Freddy F Jonathan BP Diastolic 2017-12-18 11:50:00 85 mm[Hg] Freddy F Jonathan Weight Measured 2017-12-18 11:50:00 150.60 pounds Freddy Castillo Height Measured 2017-12-18 11:50:00 63.00 inches Freddy F Jonathan Body Temperature 2017-12-18 11:50:00 98.00 degrees Freddy Castillo Heart Rate 2017-12-18 11:50:00 84.00 /min Freddy Castillo Respiratory Rate 2017-12-18 11:50:00 16.00 /min Freddy Castillo Procedures Procedure Date / Time Performed Performing Clinician Source EKG-12 LEAD 2024-04-15 18:47:21 Mari Herndon [facility] POCT TEST 2024-04-15 17:03:00 Mari Herndon [facility] CREATINE KINASE 2024-04-15 17:02:00 Mari Herndon [facility] TROPONIN I 2024-04-15 17:02:00 Mari Herndon [facility] COMP. METABOLIC PANEL (32346) 2024-04-15 17:02:00 Mari Herndon [facility] ETHANOL 2024-04-15 17:02:00 Mari Herndon [facility] URINE DRUG (IMMUNOASSAY) - COMPREHENSIVE DRUG SCREEN 2024-04-15 17:02:00 Mari Herndon [facility] CBC WITH DIFF 2024-04-15 17:02:00 Mari Herndon [facility] URINALYSIS 2024-04-15 17:02:00 Mari Herndon [facility] URINALYSIS 2023-05-01 17:17:[address] [facility] POCT TEST 2023-05-01 17:17:00 Latasha Palmer ra [facility] CREATINE KINASE 2023-05-01 16:44:00 Sepideh Palmer [facility] COMP. METABOLIC PANEL (85484) 2023-05-01 16:44:00 Sepideh Palmer [facility] CBC WITH DIFF 2023-05-01 16:44:00 Sepideh Palmer [facility] AUTHORIZATION FOR RELEASE OF PHI 2022-03-05 05:01:00 Doctor Unassigned, [place] [facility] [id number] 2020-09-13 00:00:00 [facility] ADC / LCC - DRUG SCREEN TRIAGE 2020-09-12 22:07:00 Gage Reid [facility] MAGNESIUM 2020-09-12 21:06:00 Gage Reid [facility] COMP. METABOLIC PANEL (46117) 2020-09-12 21:06:00 Gage Reid [facility] CBC WITH DIFF 2020-09-12 21:06:00 [facility] ECHO ROUTINE W/DOPPLER COLOR 2020-09-12 20:43:53 Talib Rivera [facility] CONSENT/REFUSAL FOR DIAGNOSIS AND TREATMENT 2020-09-12 19:55:29 Doctor Unassigned, [place] [facility] ASSIGNMENT OF BENEFITS 2020-09-12 19:39:54 Docto r Unassigned, [place] [facility] CBC WITH DIFF 2020-09-11 00:30:00 [facility] COVID-19 (ID NOW RAPID TESTING) 2020-09-11 00:15:00 Gage Reid [facility] CONSENT/REFUSAL FOR DIAGNOSIS AND TREATMENT 2020-09-10 23:34:19 Doctor Unassigned, [place] [facility] ASSIGNMENT OF BENEFITS 2020-09-10 23:33:44 Docto r Unassigned, [place] [facility] GROUP B STREPTOCOCCUS BY PCR 2020-09-10 22:45:00 Gage Reid [facility] L&D VISIT (NON-DELIVERED) 2020-09-10 06:01:00 Doctor Unassigned, [place] [facility] EXTERNAL PROVIDER RECORDS 2020-04-18 05:01:00 Doctor Unassigned, [place] [facility] ADC / LCC - DRUG SCREEN TRIAGE 2020-03-15 14:26:00 Gage Reid [facility] ASSIGNMENT OF BENEFITS 2020-03-15 13:18:47 Docto r Unassigned, [place] [facility] POCT URINALYSIS W/O SPECIFIC GRAVITY 2020-03-15 00:00:00 Gage Reid [facility] POCT TEST 2020-03-07 00:38:00 Edson Chambers [facility] MAGNESIUM 2020-03-06 23:24:00 Edson Chambers [facility] COMP. METABOLIC PANEL (43021) 2020-03-06 23:24:00 Edson Chambers [facility] SALICYLATE 2020-03-06 23:24:00 Edson Chambers [facility] ETHANOL 2020-03-06 23:24:00 Edson Chambers [facility] CBC WITH DIFFERENTIAL 2020-03-06 23:24:00 Edson Chambers ige [facility] URINALYSIS 2020-03-06 23:21:00 Edson Chambers [facility] ADC / LCC - DRUG SCREEN TRIAGE 2020-03-06 23:21:00 Edson Chambers [facility] EKG-12 LEAD 2020-03-06 23:04:57 Edson Chambers [facility] NOTICE OF PRIVACY PRACTICES 2019-06-10 19:40:45 Doctor Unassigned, [place] [facility] CONSENT/REFUSAL FOR DIAGNOSIS AND TREATMENT 2019-06-10 19:34:31 Doctor Unassigned, [place] [facility] Encounters Start Date/Time End Date/Time Encounter Type Admission Type Attending [facility] Care Department Encounter ID Source 2021-08-31 04:56:11 Outpatient P [facility] RACHEL [id number] [facility] 2021-08-31 04:16:00 Outpatient P [facility] [id number] [facility] 2021-08-31 04:15:28 Outpatient P [facility] R[facility] [id number] [facility] 2020-09-13 22:39:00 Inpatient Sherman Fabian [facility] [id number] [facility] 2020-07-25 10:46:00 Inpatient Rj Diez Thomas [facility] PS[facility] [id number] [facility] 2025-02-22 14:19:25 2025-02-22 14:19:[address] [facility] [id number] Freddy Hoover Jonathan 2025-02-22 00:00:00 2025-02-22 00:00:[address] [facility] [id number] Freddy Castillo 2025-02-10 10:50:43 2025-02-10 10:50:[address] [facility] [id number] Freddy Castillo 2025-02-10 00:00:00 2025-02-10 00:00:[address] [facility] [id number] Freddy Castillo 2025-02-07 10:09:33 2025-02-07 10:09:[address] [facility] [id number] Freddy Hoover [place] 2025-02-01 08:19:54 2025-02-01 08:19:[address] [facility] [facility] [id number] Freddy Hoover Jonathan 2024-12-28 12:15:00 2024-12-28 12:15:00 Outpatient R WILLIAM TOVAR [facility] [id number] [facility] 2024-05-26 11:08:15 2024-05-26 23:59:00 Outpatient R BILLIE NINO [facility] [id number] [facility] 2024-05-26 11:08:15 2024-05-26 23:59:00 Hospital Encounter Mica Billie [facility] 1.2.840.114 350.1.13.10 4.2.7.2.686 [id number] [facility] 2024-05-26 11:15:00 2024-05-26 12:18:57 Office Visit Billie Nino Oswaldo Macie [facility] 1.2.840.114 350.1.13.10 4.2.7.2.686 [id number] [facility] 2024-04-15 11:33:00 2024-04-15 14:00:00 Emergency X MARI HERNDON [facility] E[facility] [id number] [facility] 2024-04-15 11:33:00 2024-04-15 14:00:00 Emergency Mari Herndon [facility] 1.2.840.114 350.1.13.10 4.2.7.2.686 [id number] [facility] 2024-04-09 09:29:00 2024-04-09 10:43:00 Emergency X BRIGITTE RIVERO [facility] [id number] [facility] 2024-04-09 09:29:00 2024-04-09 10:43:00 Emergency Brigitte Rivero [facility] 1.2.840.114 350.1.13.10 4.2.7.2.686 [id number] [facility] 2023-11-14 00:00:00 2023-11-14 00:00:00 Nurse Triage Alisa Spann [facility] 1.2.840.114 350.1.13.10 4.2.7.2.686 [id number] [facility] 2023-08-15 00:00:00 2023-08-15 00:00:00 Outpatient GC_GCBZW_Ka diyala_S PRIV PRIV [id number] [facility] 2023-08-05 15:00:00 2023-08-05 15:00:00 Outpatient JYOTI HOANG [facility] [id number] [facility] 2023-08-05 00:00:00 2023-08-05 00:00:00 Outpatient GC_GCBZW_Ka diyala_S PRIV PRIV [id number] [facility] 2023-08-05 00:00:00 2023-08-05 00:00:00 Outpatient GC_GCBZW_Ka diyala_S PRIV PRIV [id number] [facility] 2023-07-20 00:00:00 2023-07-20 00:00:00 Outpatient GC_GCBZW_Ka diyala_S PRIV PRIV [id number] [facility] 2023-05-01 11:30:00 2023-05-01 14:17:00 Emergency X SEPIDEH PALMER [facility] E[facility] [id number] [facility] 2023-05-01 11:30:00 2023-05-01 14:17:00 Emergency Sepideh Palmer [facility] 1.2840.114 350.1.13.10 4.2.7.2.686 [id number] [facility] 2023-01-13 21:42:00 2023-01-13 22:24:00 Emergency X MIGUEL A NATH [facility] E[facility] [id number] [facility] 2023-01-13 21:42:00 2023-01-13 22:24:00 Emergency Miguel A Nath [facility] 1.2840.114 350.1.13.10 4.2.7.2.686 [id number] [facility] 2022-03-05 00:00:00 2022-03-05 00:00:00 Orders Only Doctor Unassigned, [place] [facility] 1.2840.114 350.1.13.10 4.2.7.2.686 [id number] [facility] 2021-09-23 15:00:00 2021-09-23 15:00:00 Outpatient R GAGE REID [facility] [id number] [facility] 2021-08-21 09:30:00 2021-08-21 09:30:00 Outpatient R GAGE REID [facility] [id number] [facility] 2020-09-12 13:34:00 2020-09-12 18:35:00 Hospital Encounter Gage Reid [facility] 1.2840.114 350.1.13.10 4.2.7.2.686 [id number] 2020-09-12 13:34:00 2020-09-12 18:35:00 Hospital Encounter Gage Reid [facility] 1.2.840.114 350.1.13.10 4.2.7.2.686 [id number] [facility] 2020-09-12 09:45:00 2020-09-12 09:45:00 Outpatient R GAGE REID [facility] [id number] [facility] 2020-09-11 15:45:00 2020-09-11 15:45:00 Outpatient R GAGE REID [facility] [id number] [facility] 2020-09-11 00:00:00 2020-09-11 00:00:00 Telephone Gage Reid [facility] Professio nal Building 1.2.840.114 350.1.13.10 4.2.7.2.686 [id number] 2020-09-11 00:00:00 2020-09-11 00:00:00 [facility] 1.2.840.114 350.1.13.10 4.2.7.2.686 [id number] [facility] 2020-09-11 00:00:00 2020-09-11 00:00:00 Case Management Gage Reid [facility] nal Building 1.2.840.114 350.1.13.10 4.2.7.2.686 [id number] [facility] 2020-09-10 17:30:00 2020-09-10 19:10:00 Hospital Encounter Gage Reid [facility] 1.2.840.114 350.1.13.10 4.2.7.2.686 [id number] [facility] 2020-09-10 16:09:56 2020-09-10 17:20:04 Routine Visit Gage Reid [facility] Professio nal Building 1.2.840.114 350.1.13.10 4.2.7.2.686 [id number] [facility] 2020-09-10 16:00:00 2020-09-10 16:00:00 Outpatient R GAGE REID [facility] [id number] [facility] 2020-09-03 13:00:00 2020-09-03 13:00:00 Outpatient R GAGE REID [facility] [id number] [facility] 2020-08-31 08:30:00 2020-08-31 08:30:00 Outpatient R ADJYOTI MAGAÑA [facility] [id number] [facility] 2020-08-21 10:30:00 2020-08-21 10:30:00 Outpatient R ADARCHANA [facility] [id number] [facility] 2020-08-14 10:30:00 2020-08-14 10:30:00 Outpatient R LATASHA [facility] [id number] [facility] 2020-08-13 11:00:00 2020-08-13 11:00:00 Outpatient R GAGE REID [facility] [id number] [facility] 2020-07-25 10:07:00 2020-08-02 13:01:00 Inpatient 1 Rj Diez Thomas [facility] PS[facility] [id number] [facility] 2020-07-20 08:30:00 2020-07-20 08:30:00 Outpatient R ADJYOTI MAGAÑA [facility] [id number] [facility] 2020-07-17 13:30:00 2020-07-17 13:30:00 Outpatient R ADARCHANA [facility] [id number] [facility] 2020-07-12 14:30:00 2020-07-12 14:30:00 Outpatient R GAGE REID [facility] [id number] [facility] 2020-06-19 14:30:00 2020-06-19 14:30:00 Outpatient R GAGE REID [facility] [id number] [facility] 2020-04-30 08:45:00 2020-04-30 08:45:00 Outpatient R [facility] [id number] [facility] 2020-04-26 10:31:59 2020-04-26 11:51:31 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 1..114 350.1.13.10 4.2.7.2.686 [id number] [facility] 2020-04-26 10:15:00 2020-04-26 10:15:00 Outpatient P [facility] [id number] [facility] 2020-04-26 00:00:00 2020-04-26 00:00:00 Letter (Out) Doctor Unassigned, [place] [facility] 1.114 350.1.13.10 4.2.7.2.686 [id number] [facility] 2020-04-20 15:00:00 2020-04-20 15:00:00 Outpatient R [facility] [id number] [facility] 2020-04-20 08:18:30 2020-04-20 08:33:30 Telemedici ne Visit Fellow, Luiz [facility] [place] [facility] .114 350.1.13.10 4.2.7.2.686 [id number] [facility] 2020-04-18 00:00:00 2020-04-18 00:00:00 Orders Only Doctor Unassigned, [place] [facility] .114 350.1.13.10 4.2.7.2.686 [id number] [facility] 2020-04-12 08:45:00 2020-04-12 08:45:00 Outpatient R GAGE REID [facility] [id number] [facility] 2020-04-06 08:00:00 2020-04-06 08:30:00 Telemedici ne Visit Fellow, [facility] Lidia Hunt [facility] 1.2840.114 350.1.13.10 4.2.7.2.686 [id number] [facility] 2020-04-06 08:00:00 2020-04-06 08:00:00 Outpatient R [facility] [id number] [facility] 2020-03-30 00:00:00 2020-03-30 00:00:00 Case Management Sanjana Sierra [facility] Building 1.2.840.114 350.1.13.10 4.2.7.2.686 [id number] [facility] 2020-03-20 00:00:00 2020-03-20 00:00:00 Refill Gage Reid [facility] 1.2.840.114 350.1.13.10 4.2.7.2.686 [id number] [facility] 2020-03-15 08:20:24 2020-03-15 09:19:11 Initial Visit Gage Reid [facility] 1.2.840.114 350.1.13.10 4.2.7.2.686 [id number] [facility] 2020-03-15 08:00:00 2020-03-15 08:00:00 Outpatient R GAGE REID [facility] [id number] [facility] 2020-03-15 00:00:00 2020-03-15 00:00:00 Orders Only Doctor Unassigned, [place] [facility] 1.2.840.114 350.1.13.10 4.2.7.2.686 [id number] [facility] 2020-03-15 00:00:00 2020-03-15 00:00:00 Telephone Gage Reid [facility] 1.2.840.114 350.1.13.10 4.2.7.2.686 [id number] [facility] 2020-03-06 17:55:54 2020-03-06 22:34:00 Emergency Edson Chambers [facility] 1.2.840.114 350.1.13.10 4.2.7.2.686 [id number] [facility] 2020-03-06 17:55:54 2020-03-06 17:55:54 Emergency X Edson CHAMBERS [facility] ERT [id number] [facility] 2020-02-01 00:00:00 2020-02-01 00:00:00 Telephone Faculty, Hood Yepez [facility] SK[facility] 1.2840.114 350.1.13.10 4.2.7.2.686 [id number] [facility] 2019-06-22 19:07:21 2019-06-22 21:13:00 Emergency [facility] 1.2.840.114 350.1.13.10 4.2.7.2.686 [id number] [facility] 2019-06-10 14:44:46 2019-06-10 15:34:00 Emergency Sepideh Palmer [facility] 1.2.840.114 350.1.13.10 4.2.7.2.686 [id number] [facility] 2019-06-10 00:00:00 2019-06-10 00:00:00 Orders Only Doctor Unassigned, [place] [facility] 1.2.840.114 350.1.13.10 4.2.7.2.686 [id number] [facility] Results Test Description Test Time Test Comments Results Result Co mments Source [facility] 17:29:51 ALCOHOL<10mg/dL04/15/2024 12:29 PM [facility]10 Vrmfesle14-734 Toxic>100 Depression of HOUSING INSPECTORS>400 Fatalities ReportedLake [facility] CenterCom. Metabolic Panel (03151)2024-04-15 17:27:38* Test Item Value Reference Range Interpretation Comme nts NA (test code = 9138028444) 140 mmol/L 135-145 K (test code = 6072526956) 3.4 mmol/L 3.5-5.0 L CL (test code = 0120521948) 104 mmol/L 98-108 CO2 TOTAL (test code = 7143430656) 31 mmol/L 23-31 AGAP (test code = 4839576884) 5 2-16 BUN (test code = 0575076394) 10 mg/dL 7-23 GLUCOSE (test code = 2742417665) 90 mg/dL 70-110 CREATININE (test code = 2160-0) 0.77 mg/dL 0.50-1.04 TOTAL BILI (test code = 3031217067) 0.4 mg/dL 0.1-1.1 CALCIUM (test code = 6510158881) 9.4 mg/dL 8.6-10.6 T PROTEIN (test code = 1896745002) 6.9 g/dL 6.3-8.2 ALBUMIN (test code = 3962256382) 3.9 g/dL 3.5-5.0 ALK PHOS (test code = 2192174494) 89 U/L 34-122 ALTv (test code = 1742-6) 18 U/L 5-35 AST(SGOT) (test code = 3159730379) 27 U/L 13-40 eGFR (test code = 61916-9) 98.9 mL/min/1.73m2 CKD-EPI eGFR (2020). Assuming creatinine has been stable day-to-day for at least three months, the eGFR indicates Category G1 (>= 90 mL/min/1.73 m2) Lab Interpretation (test code = 03144-4) Abnormal [facility] [id number] 17:27:38* Test Item Value Reference Range Interpretation Comme nts CK (test code = 5926975299) 69 U/L 33-194 Lab Interpretation (test cod e = 69699-7) Normal [facility] with [id number] 17:12:33* Test Item Value Reference Range Interpretation [...] 32.5 g/dL 31.6-35.1 RDW-SD (test code = 01976-4) 47.8 fL 39.0-49.9 RDW-CV (test code = 788-0) 14.0 % 12.0-15.5 PLT (test code = 777-3) 361 166-358 H MPV (test code = 30713-8) 9.6 fL 9.5-12.9 NRBC/100 WBC (test code = 3602063642) 0.0 0.0-10.0 NRBC x10^3 (test code = 9607905040) See_Comment [Automated messa ge] The system which generated this result transmitted reference range: 10*3/?L. The reference range was not used to interpret this result as normal/abnormal. GRAN MAT (NEUT) % (test code = 770-8) 61.2 % IMM GRAN % (test code = 6893161013) 0.20 % LYMPH % (test code = 736-9) 29.5 % MONO % (test code = 5905-5) 6.9 % EOS % (test code = 713-8) 1.7 % BASO % (test code = 706-2) 0.5 % GRAN MAT x10^3(ANC) (test code = 1053373554) 5.16 10*3/uL 1.88-7.09 IMM GRAN x10^3 (test code = 2102761826) 0.00-0.06 LYMPH x10^3 (test code = 731-0) 2.49 10*3/uL 1.32-3.29 MONO x10^3 (test code = 742-7) 0.58 10*3/uL 0.33-0.92 EOS x10^3 (test code = 711-2) 0.14 10*3/uL 0.03-0.39 BASO x10^3 (test code = 704-7) 0.04 10*3/uL 0.01-0.07 Lab Interpretation (test code = 50397-0) Abnormal [facility] [id number] 17:03:00* Test Item Value Reference Range Interpretation Comme nts POCT PREG (test code = 1605) Negative On board controls acceptable with C Line (test code = 3574) Yes POCT PREG LOT # (test code = 3575) [id number] POCT PREG TEST DATE ( test code = 3576) 2025-03-05 Lab Interpretation (test cod e = 12110-3) Normal [facility] [id number] 17:17:00* Test Item Value Reference Range Interpretation Comme nts POCT PREG (test code = 1605) Negative On board controls acceptable with C Line (test code = 3574) Yes POCT PREG LOT # (test code = 3575) HCG [id number] POCT PREG TEST DATE (test code = 3576) 08/07/2024 Lab Interpretation (test cod e = 04541-7) Normal [facility] TEST, THINPREP, [id number] 00:00:00 * Test Item Value Reference Range Interpretation Comme nts SOURCE: (test code = 8001) Cervical/Endo cervi bertha SLIDES: (test code = 8011) 1 LMP: (test code = 8021) 11/14/2020 SPECIMEN ADEQUACY: (test code = 98188) (NOTE) INTERPRETATION: (test code = 67817) LSIL/EPITH. ABNORMALITY; SEE BELOW OTHER COMMENTS: (test code = 8081) (NOTE) AIRCRAFT ENGINE INSTALLER: (test code = 8101) MIGUEL ANGEL David(ASCP)IAC PATHOLOGIST INTERPRETATION BY: (test code = 8122) [employer] LOCATION: (test code = 30101) (NOTE) CPT: (test code = 8140) (NOTE) Freddy Hoover [facility] [id number] 00:00:00* Test Item Value Reference Range Interpretation Comme nts ALDA SPECIES (test code = ) NEGATIVE G. VAGINALIS (test code = 79985) POSITIVE T. VAGINALIS (test code = 13708) NEGATIVE Freddy Hoover [facility]VAGINAL PATHOGENS DNA [id number] 00:00:00* Test Item Value Reference Range Interpretation Comme nts ALDA SPECIES (test code = 56246) NEGATIVE G. VAGINALIS (test code = 48380) POSITIVE T. VAGINALIS (test code = 83468) NEGATIVE Freddy CastilloPAP TEST, THINPREP, [id number] 00:00:00* Test Item Value Reference Range Interpretation Comme nts SOURCE: (test code = 8001) Cervical/Endo cervi bertha SLIDES: (test code = 8011) 1 LMP: (test code = 8021) 11/14/2020 SPECIMEN ADEQUACY: (test code = 72106) (NOTE) INTERPRETATION: (test code = 26449) LSIL/EPITH. ABNORMALITY; SEE BELOW OTHER COMMENTS: (test code = 8081) (NOTE) [employer] INST[employer]ER: (test code = 8101) MIGUEL ANGEL David(ASCP)[facility] PATHOLOGIST INTERPRETATION BY: (test code = 8122) [facility] LOCATION: (test code = 66576) (NOTE) CPT: (test code = 8140) (NOTE) Freddy CastilloHPV HIGH RISK WITH GENOTYPE, [id number] 00:00:00* Test Item Value Reference Range Interpretation Comme nts HPV HIGH RISK INTERP (test c ode = 47336) POSITIVE HPV 16 (test code = 24046) NEGATIVE HPV 18 (test code = 35966) NEGATIVE HPV, HR, OTHER GENOTYPES (te st code = 66838) POSITIVE Freddy Hoover AustinHPV HIGH RISK WITH GENOTYPE, [id number] 00:00:00* Test Item Value Reference Range Interpretation Comme nts HPV HIGH RISK INTERP (test c ode = 24309) POSITIVE HPV 16 (test code = 52756) NEGATIVE HPV 18 (test code = 88067) NEGATIVE HPV, HR, OTHER GENOTYPES (te st code = 95508) POSITIVE Freddy CastilloSARS-CoV-2 (COVID-19) by RT-PCR (HIGH RISK)2020-12-30 00:00:00* Test Item Value Reference Range Interpretation Comme nts SARS-CoV-2 INTERPRETATION (test code = 49242) NEGATIVE SOURCE (test code = 98212) NASOPHARYNGEAL Freddy CastilloSARS-CoV-2 (COVID-19) by RT-PCR (HIGH RISK)2020-12-30 00:00:00* Test Item Value Reference Range Interpretation Comme nts SARS-CoV-2 INTERPRETATION (test code = 85897) NEGATIVE SOURCE (test code = 11876) NASOPHARYNGEAL Freddy CastilloCBC W/AUTO [id number] 07:10:00* Test Item Value Reference Range Interpretation [...] code = PLTMR) NORMAL NORMAL Comments to Medical Representative: TO BE COLLECTED BY LABRUBELLA [id number] 14:15:00* Test Item Value Reference Range Interpretation Comme nts RUBELLA SCREEN (test code = RUBSC) 73.8 IUnit/ml Results >10.0IUn its/ml are considered positive inaccordance with the CLSI guidelines and based on the WHO International Standard for Anti-Rubella serum as anindicator of immune status and a breakpoint to detect mostseropositive persons. Comments to Medical Representative: please use blood alreadyin the labB [id number] 07:26:00* Test Item Value Reference Range Interpretation Comme nts HEMOGLOBIN (test code = HGB) 10.9 g/dL 10.7-13.9 N HEMATOCRIT (test code = HCT) 34.6 % 32.1-42.1 N AG HEPATITIS B [id number] 04:56:00* Test Item Value Reference Range Interpretation Comme nts AG HEPATITIS B SURFACE (test code = HBSAG) NONREACTIVE NONREACTIVE IS CONSENT FORM SIGNED FOR HIV TESTING? YAB HEPATITIS C [id number] 04:56:00* Test Item Value Reference Range Interpretation Comme nts AB HEPATITIS C (test code = HCVAB) NONREACTIVE NONREACTIVE SIGNAL TO CUTOFF (test code = CUTOFF) 0.10 <0.80 N IS CONSENT FORM SIGNED FOR HIV TESTING? YAB [id number] 04:56:00* Test Item Value Reference Range Interpretation Comme nts AB TREPONEMA (test code = TREPAB) NONREACTIVE NONREACTIVE IS CONSENT FORM SIGNED FOR HIV TESTING? YAB HIV 1 04:56:00* Test Item Value Reference Range Interpretation Comme nts AB HIV 1 2 (test code = AUJ64OI) NONREACTIVE IS CONSENT FORM SIGNED FOR HIV TESTING? YAG HEPATITIS B [id number] 04:56:00* Test Item Value Reference Range Interpretation Comme nts AG HEPATITIS B SURFACE (test code = HBSAG) NONREACTIVE NONREACTIVE IS CONSENT FORM SIGNED FOR HIV TESTING? YAB HEPATITIS C [id number] 04:56:00* Test Item Value Reference Range Interpretation Comme nts AB HEPATITIS C (test code = HCVAB) NONREACTIVE NONREACTIVE SIGNAL TO CUTOFF (test code = CUTOFF) 0.10 <0.80 N IS CONSENT FORM SIGNED FOR HIV TESTING? YAB [id number] 04:56:00* Test Item Value Reference Range Interpretation Comme nts AB TREPONEMA (test code = TREPAB) NONREACTIVE NONREACTIVE IS CONSENT FORM SIGNED FOR HIV TESTING? YAB HIV 1 04:56:00* Test Item Value Reference Range Interpretation Comme nts AB HIV 1 2 (test code = PKM38PT) NONREACTIVE NONREACTIVE Done by [employer] 4[employer] Gen HIV Ag/Ab Combo Screen IS CONSENT FORM SIGNED FOR HIV TESTING? YAG HEPATITIS B [id number] 04:41:00* Test Item Value Reference Range Interpretation Comme nts AG HEPATITIS B SURFACE (test code = HBSAG) NONREACTIVE NONREACTIVE IS CONSENT FORM SIGNED FOR HIV TESTING? YAB HEPATITIS C [id number] 04:41:00* Test Item Value Reference Range Interpretation Comme nts AB HEPATITIS C (test code = HCVAB) NONREACTIVE SIGNAL TO CUTOFF (test code = CUTOFF) <0.80 IS CONSENT FORM SIGNED FOR HIV TESTING? YAB [id number] 04:41:00* Test Item Value Reference Range Interpretation Comme nts AB TREPONEMA (test code = TREPAB) NONREACTIVE NONREACTIVE IS CONSENT FORM SIGNED FOR HIV TESTING? YAB HIV 1 04:41:00* Test Item Value Reference Range Interpretation Comme nts AB HIV 1 2 (test code = FWP82KQ) NONREACTIVE IS CONSENT FORM SIGNED FOR HIV TESTING? YCOMPREHENSIVE METABOLIC [id number] 02:39:00* Test Item Value Reference Range Interpretation [...] units/L 46-116 H COVID 19 Asymptomatic IH [id number] 00:09:00* Test Item Value Reference Range Interpretation [...] testsfor detection and/or diagnosis of COVID-19 under Fjkwtor074(b)(1) of the Act, 21 U.S.C. 360bbb-3(b)(1), unless theauthorization is terminated or revoked sooner. CBC W/AUTO [id number] 00:00:00* Test Item Value Reference Range Interpretation Comme nts WHITE BLOOD CELL (test code = WBC) 20.9 K/mm3 6.6-12.1 HH RESULTS CALLED Susanna narayan.READ BACK & CONFIRMED? yes.BY NONAMR 09/13/20 5630. RED BLOOD CELL (test code = RBC) [...] code = PLTMR) NORMAL NORMAL ADC / [facility] - DRUG SCREEN [id number] 22:29:00* Test Item Value Reference Range Interpretation Comme nts BENZO U (test code = 5442238976) Presumptive Positive Negative A ARNOLD U (test code = 0176396977) Negative Negative AMPHET (test code = 3457038668) Negative Negative THC (test code = 8100440868) Presumptive Positive Negative A Confirmation of Presumptive Positive THC result requires physician order. METHADONE (test code = 7838099349) Negative Negative Meth U (test code = 3186201053) Negative Negative OPIATES (test code = 2855636748) Presumptive Positive Negative A Cocaine Metabolite (test code = 8995624603) Negative Negative PROPOXY (test code = 3696510926) Negative Negative Tric U (test code = 3031195970) Negative Negative PCP (test code = 6539142603) Negative Negative OXYCOD (test code = 6664316251) Negative Negative YAMIL (test code = YAMIL) [...] legal testing). Lab Interpretation (test code = 12396-0) [facility]2020-[facility]12 21:50:00* Test Item Value Reference Range Interpretation Comme nts NA (test code = 3580391281) 133 mmol/L 135-145 L K (test code = 3064522986) 3.8 mmol/L 3.5-5 CL (test code = 9419493731) 106 mmol/L 98-108 CO2 TOTAL (test code = 5409646377) 23 mmol/L 23-31 AGAP (test code = 2974653286) 2-16 BUN (test code = 9042360026) 10 mg/dL 7-23 GLUCOSE (test code = 5459287390) 106 mg/dL 70-110 CREATININE (test code = 8079135720) 0.53 mg/dL 0.5-1.04 TOTAL BILI (test code = 4271265230) 0.3 mg/dL 0.1-1.1 CALCIUM (test code = 1412823554) 8.3 mg/dL 8.6-10.6 L T PROTEIN (test code = 2450902398) 6.0 g/dL 6.3-8.2 L ALBUMIN (test code = 5690516366) 3.1 g/dL 3.5-5 L ALK PHOS (test code = 3286658923) 185 U/L 34-122 H ALTv (test code = 1742-6) 15 U/L 5-35 AST(SGOT) (test code = 7925504258) 24 U/L 13-40 eGFR Calculation (Non-) (test code = 1200136483) mL/min/1.73m2 eGFR Calculation () (test code = 8303326398) mL/min/1.73m2 YAMIL (test code = YAMIL) Association [...] imaging tests). Lab Interpretation (test code = 31809-8) [facility] 21:50:00* Test Item Value Reference Range Interpretation Comme nts MAGNESIUM (test code = 3825626629) 1.8 mg/dL 1.7-2.4 Lab Interpretation (test cod e = 69066-0) Normal [facility] WITH [id number] 21:37:00* Test Item Value Reference Range Interpretation [...] 33.0 g/dL 31.6-35.1 RDW-SD (test code = 16081-6) 49.1 fL 39-49.9 RDW-CV (test code = 788-0) 14.3 % 12-15.5 PLT (test code = 777-3) See_Comment [Automated message] The system which generated this result transmitted reference range: 166 - 358 10*3/?L. The reference range was not used to interpret this result as normal/abnormal. MPV (test code = 90078-6) 10.0 fL 9.5-12.9 NRBC/100 WBC (test code = 9506690487) See_Comment [Automated message] The system which generated this result transmitted reference range: 0.0 - 10.0 /100 WBCs. The reference range was not used to interpret this result as normal/abnormal. NRBC x10^3 (test code = 7202672925) <0.01 See_Comment [Automated message] The system which generated this result transmitted reference range: 10*3/?L. The reference range was not used to interpret this result as normal/abnormal. GRAN MAT (NEUT) % (test code = 770-8) 77.1 % IMM GRAN % (test code = 8513133847) 1.00 % LYMPH % (test code = 736-9) 15.4 % MONO % (test code = 5905-5) 5.1 % EOS % (test code = 713-8) 1.1 % BASO % (test code = 706-2) 0.3 % GRAN MAT x10^3(ANC) (test code = 7480020600) 11.59 10*3/uL 1.88-7.09 H IMM GRAN x10^3 (test code = 4583407597) 0.15 10*3/uL 0-0.06 H LYMPH x10^3 (test code = 731-0) 2.32 10*3/uL 1.32-3.29 MONO x10^3 (test code = 742-7) 0.76 10*3/uL 0.33-0.92 EOS x10^3 (test code = 711-2) 0.17 10*3/uL 0.03-0.39 BASO x10^3 (test code = 704-7) 0.05 10*3/uL 0.01-0.07 Lab Interpretation (test code = 77748-4) [facility]GROUP [facility] STREPTOCOCCUS BY [id number] 14:02:00* Test Item Value Reference Range Interpretation Comme nts Group B Streptococcus by PCR (test code = 33399-0) Negative Negative Lab Interpretation (test cod e = 27002-6) [facility]COVID[facility] (ID NOW RAPID TESTING)2020-09-11 00:51:00* Test Item Value Reference Range Interpretation Comme nts SARS-CoV-2 Rapid ID NOW (test code = 86376-3) Not Detected Not Detected YAMIL (test code = YAMIL) ID NOW COVID-19 As say is an isothermal nucleic acid amplification test intended for the qualitative detection of nucleic acid from SARS-CoV-2 viral RNA in nasopharyngeal (RETREAD SUPERVISOR) specimens. It is used under Emergency Use [...] clinically indicated. Lab Interpretation (test code = 52270-6) [facility] CenterCBC WITH [id number] 00:50:00* Test Item Value Reference Range Interpretation Comme nts WBC (test code = 6690-2) See_Comment H [[facility]] The system which generated this result transmitted reference range: 4.30 - 11.10 10*3/?L. The reference range was not used to interpret this result as normal/abnormal. RBC (test code = 789-8) See_Comment L [[facility]ated [facility]] The system which generated this result [...] 33.1 g/dL 31.6-35.1 RDW-SD (test code = 36886-7) 50.4 fL 39-49.9 H RDW-CV (test code = 788-0) 14.5 % 12-15.5 PLT (test code = 777-3) See_Comment [[facility]ated [facility]] The system which generated this result transmitted reference range: 166 - 358 10*3/?L. The reference range was not used to interpret this result as normal/abnormal. MPV (test code = 81483-5) 9.9 fL 9.5-12.9 NRBC/100 WBC (test code = 4138338904) See_Comment [Automated AOL ssage] The system which generated this result transmitted reference range: 0.0 - 10.0 /100 WBCs. The reference range was not used to interpret this result as normal/abnormal. NRBC x10^3 (test code = 3147472418) <0.01 See_Comment [[facility]ated [facility]] The system which generated this result transmitted reference range: 10*3/?L. The reference range was not used to interpret this result as normal/abnormal. GRAN MAT (NEUT) % (test code = 770-8) 76.4 % IMM GRAN % (test code = 4415149995) 0.90 % LYMPH % (test code = 736-9) 16.0 % MONO % (test code = 5905-5) 5.2 % EOS % (test code = 713-8) 1.3 % BASO % (test code = 706-2) 0.2 % GRAN MAT x10^3(ANC) (test code = 8299682655) 9.39 10*3/uL 1.88-7.09 H IMM GRAN x10^3 (test code = 1919105536) 0.11 10*3/uL 0-0.06 H LYMPH x10^3 (test code = 731-0) 1.97 10*3/uL 1.32-3.29 MONO x10^3 (test code = 742-7) 0.64 10*3/uL 0.33-0.92 EOS x10^3 (test code = 711-2) 0.16 10*3/uL 0.03-0.39 BASO x10^3 (test code = 704-7) 0.03 10*3/uL 0.01-0.07 Lab Interpretation (test code = 10508-4) Abnormal [facility] CenterLactate Ftndoanegqixc0980-76-81 08:28:44* Test Item Value Reference Range Interpretation Comme nts LDH (test code = LDH) 166 U/L 120-246 Comprehensive Metabolic Nbgtq3989-64-25 08:16:47* Test Item Value Reference Range Interpretation [...] = Lipemia) 0 g/dL 1-2 Comprehensive Metabolic Ybxnv4097-59-28 08:16:47* Test Item Value Reference Range Interpretation [...] is not provided, and the patient is -Danish, multiply by 1.212. If sex is not [...] is not provided, and the patient is -Danish, multiply by 1.212. If sex is not [...] = Lipemia) 0 g/dL 1-2 Comprehensive Metabolic Nzofk1174-60-81 08:16:47* Test Item Value Reference Range Interpretation [...] is not provided, and the patient is -Danish, multiply by 1.212. If sex is not [...] is not provided, and the patient is -Danish, multiply by 1.212. If sex is not [...] 0 g/dL 1-2 Complete Blood Count without Rdhx4521-27-77 08:09:40* Test Item Value Reference Range Interpretation [...] = NRBC Abs) 0.00 x10 N Creatinine Kjnjv1057-06-99 15:39:13* Test Item Value Reference Range Interpretation Comme nts U Creatinine (test code = U Creatinine) 89.1 mg/dL N Reference r anges have not been established for this assay. Protein Mcxik6286-53-62 15:39:13* Test Item Value Reference Range Interpretation Comme nts U Protein (test code = U Protein) 10.4 mg/dL 1.0-14.0 Complete Blood Count without Ysxr0543-17-10 06:39:12* Test Item Value Reference Range Interpretation [...] x10 N US OB Greater Than 14 Wuaxe7589-75-35 19:21:42Patient: MARTINE LENTZ Date/Time07/26/2020 17:29 CDTReason for Examper md order;Other (please specify)ReportOB ULTRASOUND LIMITEDLocation: [id number] HISTORY: Confirm pregnancyLMP gest.age by LMP 34 [...] De [place] Maria VSigned (Electronic Signature): 0 07/26/2020 7:21 pmBeta HCG Zlasrqsekriu2661-45-92 14:42:56* Test Item Value Reference Range Interpretation Comme nts HCG, Beta Quantitative (test code = HCG, Beta Quantitative) 42940.1 mIU/mL N 17-54 (Non-)?41 (Post-menopausal) RPR Mruxepdnybc6523-95-86 12:50:28* Test Item Value Reference Range Interpretation [...] code = Expiration Dt) 08-01-2021 N Lipid Unozl4882-99-14 07:58:23* Test Item Value Reference Range Interpretation [...] is LDL/HDL Ratio=LDL Calc/HDL Chol Thyroid Stimulating Fpbmbzc5451-18-10 07:58:23* Test Item Value Reference Range Interpretation Comme nts TSH (test code = TSH) 1.312 mcIU/mL 0.550-4.780 Hemoglobin [id number] 07:54:16* Test Item Value Reference Range Interpretation Comme nts Hemoglobin A1c (test code = Hemoglobin A1c) 5.1 % 4.0-5.8 Diabetic >=6.5 %Prediabetes 5.7-6.4 %Normal <5.7 % ADC / [facility] - DRUG SCREEN JPUWQI9854-14-32 22:40:00* Test Item Value Reference Range Interpretation Comme nts BENZO U (test code = 9387425843) Negative Negative ARNOLD U (test code = 0902824320) Negative Negative AMPHET (test code = 4388270170) Negative Negative THC (test code = 9395325265) Negative Negative METHADONE (test code = 8793320983) Negative Negative Meth U (test code = 1718074118) Negative Negative OPIATES (test code = 4608779582) Negative Negative Cocaine Metabolite (test code = 5477507710) Negative Negative PROPOXY (test code = 5339085984) Negative Negative Tric U (test code = 7384339574) Negative Negative PCP (test code = 0462143262) Negative Negative OXYCOD (test code = 2324998989) Negative Negative YAMIL (test code = YAMIL) [...] legal testing). Lab Interpretation (test code = 52193-4) Normal [facility] CenterPOTX URINALYSIS W/O SPECIFIC QLKCPZX6479-80-01 14:00:00* Test Item Value Reference Range Interpretation [...] = 3257) N/A Negative - Negati ve [facility] CenterCOMP. METABOLIC PANEL (06936)2020-03-07 00:39:00* Test Item Value Reference Range Interpretation Comme nts NA (test code = 8744254447) 139 mmol/L 135-145 K (test code = 9697232563) 3.9 mmol/L 3.5-5 CL (test code = 5690177278) 108 mmol/L 98-108 CO2 TOTAL (test code = 2168716520) 22 mmol/L 23-31 L AGAP (test code = 4880688617) 2-16 BUN (test code = 0776024391) 5 mg/dL 7-23 L GLUCOSE (test code = 2488884093) 103 mg/dL 70-110 CREATININE (test code = 1263994443) 0.44 mg/dL 0.5-1.04 L TOTAL BILI (test code = 3509227259) <0.1 0.1-1.1 L CALCIUM (test code = 5894367420) 9.7 mg/dL 8.6-10.6 T PROTEIN (test code = 2496043826) 6.2 g/dL 6.3-8.2 L ALBUMIN (test code = 1849477826) 3.6 g/dL 3.5-5 ALK PHOS (test code = 3780059030) 56 U/L 34-122 ALTv (test code = 1742-6) 10 U/L 5-35 AST(SGOT) (test code = 1981587219) 20 U/L 13-40 eGFR Calculation (Non-) (test code = 6445053946) mL/min/1.73m2 eGFR Calculation () (test code = 7761461225) mL/min/1.73m2 YAMIL (test code = YAMIL) Association [...] imaging tests). Lab Interpretation (test code = 72413-7) Abnormal [facility] CenterACETAMINOPHEN2020-05-06 00:39:00* Test Item Value Reference Range Interpretation Comme nts ACETAMINOP (test code = 3037172662) <10.0 10-30 L YAMIL (test code = YAMIL) Toxic: Greater hanna n 200 ug/mL @ 4 hour post ingestion or greater than 50 ug/mL @ 12 hour post ingestion Lab Interpretation (test code = 55711-5) Abnormal [facility] CenterSALICYLATE2020-05-06 00:39:00* Test Item Value Reference Range Interpretation Comme nts SALICYLATE (test code = 1822474840) <10 mg/L YAMIL (test code = YAMIL) Therapeutic Range: ? Analgesic and Antipyretic Use ? 20-100 mg/L ? ? Anti-Inflammatory Use ? 100-250 mg/L Toxic Range: ? Greater than 300 mg/L [facility] CenterPOCT [id number] 00:38:00* Test Item Value Reference Range Interpretation Comme nts POCT PREG (test code = 1605) positive On board controls acceptable with C Line (test code = 3574) present POCT PREG LOT # (test code = 3575) [id number] POCT PREG TEST DATE ( test code = 3576) 06-01-2021 Lab Interpretation (test cod e = 78742-8) Normal [facility] CenterETHANOL2020-05-06 00:37:00* Test Item Value Reference Range Interpretation Comme nts ALCOHOL (test code = 5970458568) 88 mg/dL YAMIL (test code = YAMIL) <10 Ogelulpm17-100 Toxic>100 Depression of HOUSING INSPECTORS>400 Fatalities Reported [facility] CenterMAGNESIUM2020-05-06 00:36:00* Test Item Value Reference Range Interpretation Comme nts MAGNESIUM (test code = 3071273800) 1.6 mg/dL 1.7-2.4 L Lab Interpretation (test cod e = 43700-0) Abnormal [facility] CenterURINALYSIS2020-05-06 00:15:00* Test Item Value Reference Range Interpretation Comme nts APPEARANCE (test code = 6225922656) Clear Clear COLOR (test code = 3969208452) Yellow Yellow PH (test code = 7537413046) 4.8-8.0 SP GRAVITY (test code = 9443269388) 1.003-1.030 GLU U QUAL (test code = 8800512808) Normal Normal BLOOD (test code = 6072306329) Negative Negative KETONES (test code = 7662348559) Negative Negative PROTEIN (test code = 2887-8) Negative Negative UROBILIN (test code = 9981728970) Normal Normal BILIRUBIN (test code = 2464002009) Negative Negative NITRITE (test code = 5544427457) Negative Negative LEUK MARY (test code = 5719019410) Negative Negative RBC/HPF (test code = 7780914599) <1 See_Comment [Automated messa ge] The system which generated this result transmitted reference range: 0 - 3 HPF. The reference range was not used to interpret this result as normal/abnormal. WBC/HPF (test code = 3395984422) See_Comment [[facility]ated [facility]] The system which generated this result transmitted reference range: 0 - 5 HPF. The reference range was not used to interpret this result as normal/abnormal. BACTERIA (test code = 2501703996) Few Negative A MUCOUS (test code = 1471230655) Slight Negative LPF A SQ EPITH (test code = 2465316340) HPF Lab Interpretation (test code = 50584-6) Abnormal [facility] CenterADC / [facility] - DRUG SCREEN DXZCQE2952-32-88 23:49:00* Test Item Value Reference Range Interpretation Comme nts BENZO U (test code = 1928059861) Presumptive Positive Negative A ARNOLD U (test code = 3640615481) Negative Negative AMPHET (test code = 2670914873) Negative Negative THC (test code = 0235274123) Negative Negative METHADONE (test code = 6732587076) Negative Negative Meth U (test code = 0096733890) Negative Negative OPIATES (test code = 9763072890) Negative Negative Cocaine Metabolite (test code = 0495734059) Negative Negative PROPOXY (test code = 4258270042) Negative Negative Tric U (test code = 8580361843) Negative Negative PCP (test code = 9468777241) Negative Negative OXYCOD (test code = 8400857286) Negative Negative YAMIL (test code = YAMIL) [...] legal testing). Lab Interpretation (test code = 06794-1) Abnormal [facility] WITH YTWYXPZKAOZH4978-94-51 23:34:00* Test Item Value Reference Range Interpretation [...] 34.0 g/dL 31.6-35.1 RDW-SD (test code = 39567-4) 42.4 fL 39-49.9 RDW-CV (test code = 788-0) 13.0 % 12-15.5 PLT (test code = 777-3) See_Comment [Automated messa ge] The system which generated this result transmitted reference range: 166 - 358 10*3/?L. The reference range was not used to interpret this result as normal/abnormal. MPV (test code = 43346-8) 9.7 fL 9.5-12.9 NRBC/100 WBC (test code = 8466687151) See_Comment [Automated AOL ssage] The system which generated this result transmitted reference range: 0.0 - 10.0 /100 WBCs. The reference range was not used to interpret this result as normal/abnormal. NRBC x10^3 (test code = 9339527631) <0.01 See_Comment [Automated messa ge] The system which generated this result transmitted reference range: 10*3/?L. The reference range was not used to interpret this result as normal/abnormal. GRAN MAT (NEUT) % (test code = 770-8) 72.0 % IMM GRAN % (test code = 3591959479) 0.40 % LYMPH % (test code = 736-9) 21.6 % MONO % (test code = 5905-5) 3.9 % EOS % (test code = 713-8) 1.8 % BASO % (test code = 706-2) 0.3 % GRAN MAT x10^3(ANC) (test code = 3973161383) 8.22 10*3/uL 1.88-7.09 H IMM GRAN x10^3 (test code = 9501955959) 0.05 10*3/uL 0-0.06 LYMPH x10^3 (test code = 731-0) 2.47 10*3/uL 1.32-3.29 MONO x10^3 (test code = 742-7) 0.45 10*3/uL 0.33-0.92 EOS x10^3 (test code = 711-2) 0.20 10*3/uL 0.03-0.39 BASO x10^3 (test code = 704-7) 0.03 10*3/uL 0.01-0.07 Lab Interpretation (test code = 85792-8) Abnormal [facility] CenterRPR, Ckqj9391-17-32 14:45:00* Test Item Value Reference Range Interpretation Comme nts RPR (test code = RPR) Non-Reactive Non-Reactive N Thyroid Stimulating Hormone (TSH)2017-12-30 07:29:00* Test Item Value Reference Range Interpretation Comme nts TSH (test code = TSH) 2.42 mIU/mL 0.270-4.200 N BHCG, Serum, Smxewjjuknrc0892-78-32 07:29:00* Test Item Value Reference Range Interpretation Comme nts B hCG, Quant (test code = BHCGQT) <1 mIU/mL Weeks of Gestati on Ranges (mIU/mL)3 weeks 5.40 - 72.04 weeks 10.2 - 7085 weeks 217 - 40476 weeks 152 - 066203 weeks 4059 - 1745656 weeks 42262 - 2706616 weeks 51149 - 21101050 weeks 18733 - 53047896 weeks 99990 - 39669922 weeks 24628 - 5574660 weeks 19745 - 6231070 weeks 7822 - 5905004 weeks 1895 - 0042115 weeks 0703 - 51502 Lipid Fkcplsu4098-30-78 07:19:00* Test Item Value Reference Range Interpretation Comme nts Cholesterol (test code = CHOL) 132 mg/dL 0-200 N Triglycerides (test code = TRIG) 122 mg/dL 9-200 N HDL (test code = HDL) 21 mg/dL 50-60 L Chol/HDL (test code = CHOLPHDL) 6.3 Ratio 0.0-4.4 H LDL, Calculated (test code = LDLC) 87 0-130 N (NOTE)RISK OF HEART DISEASEPublished by Danish Heart AssociationAnalyte Optimal Boderline Increased RiskCHOL <200 200-239 >240TRIG <150 150-199 >200HDL Male: >60 <40HDL Female: >60 <50LDL <100 130-159 >160LDL NEAR OPTIMAL IS 100-129 VLDL (test code = VLDL) 24 mg/dL 5-40 N LDL/HDL (test code = LDLPHDL) 4 DRJ30620-43-21 04:24:00* Test Item Value Reference Range Interpretation [...] code = THC) POSITIVE Negative A Urinalysis Unfhenmq3073-96-48 03:47:00* Test Item Value Reference Range Interpretation Comme nts Color (test code = COLOR) Zeba Yellow,Straw,Pl yellow A The value [place] originally released by [employer] on 12/30/2017 03:42 waschanged to Zeba by [employer] on 12/30/2017 03:47 Clarity (test code = CLAR) Sl Cloudy Clear A The value Clear originally released by [employer] on 12/30/2017 03:42 waschanged to Sl Cloudy by [employer] on 12/30/2017 03:47 Specific [place] (test code = SPGR) 1.006 1.001-1.035 N [...] code = BACT) Few /HPF Comprehensive Metabolic Zgoob8998-51-78 01:00:00* Test Item Value Reference Range Interpretation [...] race is not provided, and the patient isAfrican-Danish, multiply by 1.212. If sex is not [...] by the National Kid[employer] Foundation,http://nkdep .nih.gov Alcohol/Ethanol, Zwprr0263-59-46 01:00:00* Test Item Value Reference Range Interpretation Comme nts Alcohol, Ethyl (test code = ETOH) <0.01 g/dL 0.00-0.01 N Intoxicated 0 .080 g/dL or more CBC with Bqnaxvsrhbej4523-20-32 00:45:00* Test Item Value Reference Range Interpretation [...] code = ALYMPH) 3.8 K/cumm 0.5-4.6 N Garvin Abs (test code = AMONO) 0.5 K/cumm 0.0-1.2 N Eos Abs (test code = AEOS) 1.24 K/cumm 0.00-0.74 H Baso Abs (test code = ABASO) 0.1 K/cumm 0.00-0.21 N Notes Date/Time Note Provider Source [facility]2025-04-11 00:00:00 [facility] [facility] 13:56:16 Pt given printed and verbal discharge instructions regarding uti, anxiety, encouraged hydration. 1 Prescription sent to pharmacy. Discussed antibiotic therapy and to take until all completed unless adverse reaction occurs - if occurs, discontinue medication and follow up with pcp/seek medical attention. Pt verbalized understanding of instructions, pt awake alert oriented, resp reg unlabored, skin w/d, color appropriate for race, moves all ext well,pt encouraged to follow up with pcp. Advised to seek medical attention for new/prolonged/worsening of symptoms, Symptoms improved. No adverse reaction to meds given in ER noted upon discharge. PIV d'cd, dressing to site, catheter in tact. Awake, alert oriented, resp reg unlabored, skin w/d, pt leaving amb with steady gait, in no apparent distress. [id number] 13[facility]45[facility]00 Upon discharge, patient requesting to be tested for STD's, provider notified. [place] 57664-06-14 12:12:37 Patient requesting to be tested for HIV, medical records from 2010, and help for her mental health problems including hallucinations. Provider notified. [place] [id number] 11:35:40 Patient arrived in custody with [employer] by [facility] for weakness, patient states she feels like she is going to pass out and feels like she is in afib. Patient also complains of sciatica pain. 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 She is brought in for fit for incarceration She says she has afib, they wanted her checked out for afib She has been feeling tired She states no pain, no numbness no weakness, but she feels global fatigue and that is because she is under stress from when her mom She asked if it is possible for black magic and spiritism to make her feel the way that she does, she prayed for jolly glassjerry on [employer] and since then black cars have been following her She has no fever no si/hi, she is under arrest with [facility], seeking medical clearance, she denies si/hi Past Medical History/Immunizations: Past Medical History: Diagnosis Date Abdominal pain, other specified site Anemia Anxiety Depression Genital herpes History of cardiac arrest 2010 see EMR History of drug abuse 03/15/2020 Tetanus received in last 5 years: Unknown Childhood immunizations: Up-to-date Allergies: Allergies Allergen Reactions Bactrim [Sulfamethoxazole-Trimethoprim] Swelling Morphine Unknown - See comments Per patient she went into cardiac arrest after receiving morphine at the hospital March 2011 Penicillin Unknown - See comments Past Social History: Tobacco Use Every Day; 0.5 packs/day; Types: Cigarettes Smokeless Tobacco: Never used smokeless tobacco. Alcohol Use Yes. Drug Use No. Comments: pt reports no Sexual Activity Sexually active; Partners: Male. Past Surgical History: Past Surgical History: Procedure Laterality Date SECTION Review of Systems: Review of Systems Constitutional: Negative for diaphoresis and fatigue. HENT: Negative. Cardiovascular: Positive for palpitations. Psychiatric/Behavioral: Positive for sleep disturbance. Negative for self-injury and suicidal ideas. The patient is nervous/anxious. All other systems reviewed and are negative. Physical Exam: ED Triage Vitals Weight 04/15/24 1139 69.9 kg (154 lb) Actual or estimated 04/15/24 1139 Estimated by patient/family report Height 04/15/24 1139 1.524 m (5') BP 04/15/24 1139 127/81 Pulse 04/15/24 1139 103 Resp 04/15/24 1139 18 Temp 04/15/24 1135 36.6 ?C (97.8 ?F) Temp source 04/15/24 1135 Oral SpO2 04/15/24 1135 95 % Measured on 04/15/24 1135 Room air Physical Exam Vitals and nursing note reviewed. Constitutional: Comments: Anxious, tearful HENT: Head: Normocephalic. Right Ear: External ear normal. Left Ear: External ear normal. Mouth/Throat: Mouth: Mucous membranes are moist. Eyes: Extraocular Movements: Extraocular movements intact. Pupils: Pupils are equal, round, and reactive to light. Cardiovascular: Rate and Rhythm: Regular rhythm. Tachycardia present. Pulses: Normal pulses. Pulmonary: Effort: Pulmonary effort is normal. Breath sounds: Normal breath sounds. Abdominal: General: Abdomen is flat. Bowel sounds are normal. Musculoskeletal: General: No swelling or deformity. Normal range of motion. Cervical back: Normal range of motion. Skin: General: Skin is warm. Capillary Refill: Capillary refill takes less than 2 seconds. Neurological: General: No focal deficit present. Mental Status: She is alert and oriented to person, place, and time. Comments: Anxious directable, no acute hallucinations Radiology: No orders to display Lab Results: Lab Results - No data to display EKG: If EKG completed, see Procedure Note. Orders and Treatments: Orders Placed This Encounter Procedures Cbc with Diff Comp. Metabolic Panel (69482) Troponin I POCT Test Urinalysis Urine Drug (Immunoassay) - Comprehensive Drug Screen Creatine Kinase Ethanol Orders Placed This Encounter Medications NaCl 0.9% (NS) bolus infusion 1,000 mL First Provider Eval: ED Events Date/Time Event User Comments 04/15/24 1148 Medical Screening Begins MARI HERNDON MD -- 04/15/24 1148 First Provider Evaluation MARI HERNDON MD -- ED COURSE Diagnosis/Impression as of 04/15/24 1331 Substance abuse Cystitis Anxiety Procedures: EKG-12 Lead ROUTINE ONCE Date/Time: 04/15/2024 12:36 PM Performed by: Mari Herndon MD Authorized by: Mari Herndon MD Rate: ECG rate: 93 ECG rate assessment: normal Rhythm: Rhythm: sinus rhythm QRS: QRS axis: Normal QRS intervals: Normal QRS conduction: normal MDM: Medical Decision Making Pt has a long history of substance abuse. She is brought in for fit for incarceration She says she has afib, they wanted her checked out for afib She has been feeling tired She states no pain, no numbness no weakness, but she feels global fatigue and that is because she is under stress from when her mom She asked if it is possible for black magic and spiritism to make her feel the way that she does, she prayed for jolly lizama on [employer] and since then black cars have been following her She has no fever no si/hi, she is under arrest with [facility], seeking medical clearance, she denies si/hi Pt here for fit for incarceration, Ddx electroltye abnormality, christine, rhabdo, ami ckd She came here for evaluation of her AFIB She wants us to print off records from 2010 She was not suicidal/homicidal and di not have any health concerns until arrested, she denies si/hi for me, she states she wants me to transfer her to a psych hospital because in custodial they put her in a padded room. She says she has severe anxiety and wants to go to a psych hospital for anxiety, when asked if she had anxiety before arrest she said no. 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 she is getting benzos/opiats/amphetamines, but now pt is tating her friend is getting them an not her She asked for me to give her IV narcotics for her back pain, this is pain she did not have initially, I informed her I would not give her narcotics She does have a bladder infection She is going to custodial and is anxious will give a xanex Medically her bp and hr have been stable in sinus rhythm Will dc to custodial She has some manipulitave behavior but as she is in custody they can enlist their Mental heatlh professionals as needed She is now asking for STD, HIV and thorazine She seems to be delaying her Penitentiary and manipulating nursing/health care for concerns she was not worried about until she got arrested. I agree she should have comprehensive health care and mental health care, but she did not come in for any individual event and would not be here if not in custodial. And her reason for seeking care was for afib, which is stable Problems Addressed: Anxiety: chronic illness or injury with exacerbation, progression, or side effects of treatment Details: Cbc cmp EKG uds etoh Cystitis: acute illness or injury Details: Cbc ua abx Substance abuse: acute illness or injury Details: This was complicated history to obtain Amount and/or Complexity of Data Reviewed Labs: ordered. Details: Recent Results (from the past 24 hour(s)) -Cbc with Diff: Collection Time: 04/15/24 12:02 PM Result Value Ref Range WBC 8.43 4.30 - 11.10 10*3/?L RBC 3.62 (L) 3.93 - 5.25 10*6/?L HGB 11.0 (L) 11.6 - 15.0 g/dL HCT 33.8 (L) 35.7 - 45.2 % MCV 93.4 80.6 - 95.5 fL MCH 30.4 25.9 - 32.8 pg MCHC 32.5 31.6 - 35.1 g/dL RDW-SD 47.8 39.0 - 49.9 fL RDW-CV 14.0 12.0 - 15.5 % PLT 361 (H) 166 - 358 10*3/?L MPV 9.6 9.5 - 12.9 fL NRBC/100 WBC 0.0 0.0 - 10.0 /100 WBCs NRBC x103<0.01 10*3/?L GRAN MAT (NEUT) % 61.2 % IMM GRAN % 0.20 % LYMPH % 29.5 % MONO % 6.9 % EOS % 1.7 % BASO % 0.5 % GRAN MAT x103(ANC) 5.16 1.88 - 7.09 10*3/uL IMM GRAN x103<0.03 0.00 - 0.06 10*3/uL LYMPH x1032.49 1.32 - 3.29 10*3/uL MONO x1030.58 0.33 - 0.92 10*3/uL EOS x1030.14 0.03 - 0.39 10*3/uL BASO x1030.04 0.01 - 0.07 10*3/uL -Comp. Metabolic Panel (98288): Collection Time: 04/15/24 12:02 PM Result Value Ref Range NA 140 135 - 145 mmol/L K 3.4 (L) 3.5 - 5.0 mmol/L CL 104 98 - 108 mmol/L CO2 TOTAL 31 23 - 31 mmol/L AGAP 5 2 - 16 BUN 10 7 - 23 mg/dL GLUCOSE 90 70 - 110 mg/dL CREATININE 0.77 0.50 - 1.04 mg/dL TOTAL BILI 0.4 0.1 - 1.1 mg/dL CALCIUM 9.4 8.6 - 10.6 mg/dL T PROTEIN 6.9 6.3 - 8.2 g/dL ALBUMIN 3.9 3.5 - 5.0 g/dL ALK PHOS 89 34 - 122 U/L ALTv 18 5 - 35 U/L AST(SGOT) 27 13 - 40 U/L eGFR 98.9 mL/min/1.73m2 -Troponin I: Collection Time: 04/15/24 12:02 PM Result Value Ref Range TROPONIN I 0.005 <=0.034 ng/mL -Urinalysis: Collection Time: 04/15/24 12:02 PM Result Value Ref Range APPEARANCE Hazy (A) Clear COLOR Yellow Yellow PH 6.0 4.8 - 8.0 SP GRAVITY 1.019 1.003 - 1.030 GLU U QUAL Normal Normal BLOOD Negative Negative KETONES Negative Negative PROTEIN Negative Negative UROBILIN 4.0 mg/dL (A) Normal BILIRUBIN Negative Negative NITRITE Positive (A) Negative LEUK MARY 250/uL (A) Negative RBC/HPF 10 (H) 0 - 3 HPF WBC/HPF 18 (H) 0 - 5 HPF BACTERIA Few (A) Negative MUCOUS Slight (A) Negative LPF SQ EPITH 4 HPF CA OXALATE 21 (H) <=1 HPF -Urine Drug (Immunoassay) - Comprehensive Drug Screen: Collection Time: 04/15/24 12:02 PM Result Value Ref Range AMPHET Presumptive Positive (A) Negative ARNOLD U Negative Negative BENZO U Presumptive Positive (A) Negative Cocaine Metabolite Negative Negative METHADONE Negative Negative OPIATES Negative Negative PCP Negative Negative THC Negative Negative -Creatine Kinase: Collection Time: 04/15/24 12:02 PM Result Value Ref Range CK 69 33 - 194 U/L -Ethanol: Collection Time: 04/15/24 12:02 PM Result Value Ref Range ALCOHOL <10 mg/dL -POCT Test: Collection Time: 04/15/24 12:03 PM Result Value Ref Range POCT PREG Negative On board controls acceptable with C Line Yes POCT PREG LOT # [id number] POCT PREG TEST DATE 2025-03-05 Risk OTC drugs. Prescription drug management. Diagnosis or treatment significantly limited by social determinants of health. Substance abuse, incarcerated Flowsheet Documentation: Scoring Tools: No data recorded Disposition/Condition: ED Disposition None Discharge Medications: Patient's Medications START taking these medications No medications on file CONTINUE taking these medications which have NOT CHANGED ONDANSETRON 4 MG DISINTEGRATING TABLET Take 1 tablet by mouth every 8 (eight) hours as needed for Nausea and Vomiting (N/V). PNV [id number] 1-DSS-DHA (VITAFOL FE+, WITH DOCUSATE,) 90 MG IRON-1 MG -50 MG-200 MG CAP Take 1 TAB-CAP/M2 by mouth daily. RISPERIDONE 2 MG TABLET Take 2 mg by mouth daily. SERTRALINE (ZOLOFT) 50 MG TABLET Take 50 mg by mouth daily. START taking Modified Medications as Prescribed No medications on file STOP taking these medications No medications on file Follow-up: Electronically signed by: Mari Herndon MD 04/15/24 1347 [place] [id number] 10:18:02 Left AMA, walk out in ER with steady gait and with belonging. vitally stable. [place] 57664-06-08 10:05:44 Patient was seen by Brigitte AGUIAR, but patient refused the work up and insisted to do her work up in [facility]. Gino wrap applied to right wrist. Jacqueline HERNANDEZsupercharge repair supervisor aware. [place] 57664-06-08 09:30:21 Came by [facility] em[facility] states" she complaint of right wrist sprained, he has hx of psychosis, PTSD and afib" Denies any trauma, states she lift a heavy trash a mos ago [place] [id number] 15:04:00 Regardiny/f pt calling states she's been having visions, says someone is going to take kids from her ----- Message from Roxanne Perla sent at 11/14/2023 3:02 PM CAR ELECTRONICS INSTALLER ----- Martine Lentz is a 43 year old female states she is an addict, and is crying ELECTRONICS INSTALLER Alisa Spann [facility] - [id number] 15:04:00 Adult Triage Assessment Last Clinic Visit: 05/01/23, ER, n/v Primary Symptom: hallucinations Onset / Duration: unknown Location / Description: psych Pain / Severity: 12/12 mouth pain Associated Symptoms: mouth hurts, feels like the govt is after her, CPS trying to take her kids away Fever / Method: denies Hydration: eating and drinking less than normal, last void "a few min ago", denies hematuria or dysuria, denies n/v/d Treatment so far: Prozac 60mg today Effect on ADL's: some LMP: 5 days ago Pre-existing condition / Immunocompromised: abdominal pain, anemia, anxiety, depression, STD, drug abuse.Pt reports hx of Schizo effective disorder Martine Lentz is a 43 year old female whose calling with hallucinations. Pt timeline jumping around and hard to follow events when they happened. Pt stating that she feels like the [employer] has hacked her phone and is following her. Pt reports she needs to tell President Jessica what happened. Pt states Pt rambles about lots of events including people are watching her, CPS is taking her kids away, she has stopped pills, now taking them again, she has been on a vent in the hospital, her mom , lead embedded software engineer keep coming to her home, people are [...] make sure that she is okay. Call disconnected. Alisa Spann RN Reason for Disposition [1] Patient is very confused (disoriented, slurred speech) AND [2] no other adult (e.g., friend or family member) available Protocols used: [id number]-LB [facility]2020-11-25 14:55:[id number] [place] [id number] PATIENT NAME: MARTINE LENTZ ADMIT DATE: 09/13/20 ACCOUNT NO: [id number] ROOM NO: .2019 AGE: 40 SEX: F ADMITTING PHYSICIAN: Sherman Collazo III, MD ATTENDING PHYSICIAN: Sherman Collazo III, MD ADMISSION DATE: 09/13/2020 DISCHARGE DATE: 09/16/2020 ADMITTING DIAGNOSES: 1. Intrauterine at 39 weeks. 2. Previous section. 3. Labor. DISCHARGE DIAGNOSES: 1. Intrauterine at 39 weeks. 2. Previous section. 3. Labor. PROCEDURE PERFORMED: Repeat low cervical transverse section. HOSPITAL COURSE: The patient was admitted in labor, taken back for a repeat section. She delivered a 7-pound 12-ounce female , Apgars 8 and 8. No complications. Taken to recovery room, stable. COURSE: hemoglobin 10.9 on POD #1. Her blood pressure was mildy elevated on postop #2. She was advised to stay in the hospital overnight to monitor her blood pressure. She decided to leave the hospital AMA. Left AMA on postoperative day #2.5. . DISPOSITION: Left AMA. DIET: Regular diet as tolerated. ACTIVITY: Ad delmar as tolerated. MEDICATIONS: Please see hospital med reconciliation form. FOLLOWUP: The patient to follow up with her doctor. Dictated By: Sherman Collazo III, MD WT: DS:F.MUSA/HOLLY/AYAKA Conf#: [id number]/DID#: [id number] PATIENT NAME: MARTINE LENTZ Authenticated and Edited by Sherman Collazo MD On 09/29/20 4:16:09 PM at 1618 PATIENT NAME: MARTINE LENTZ 09:10:00 [facility] ([facility]) OB Postpart Progr Note REPORT#:[id number] REPORT STATUS: Signed DATE:09/16/20 TIME: 09 PATIENT: MARTINE LENTZ UNIT #: [id number] ROOM/BED: : 82 AGE: 40 SEX: F ATTEND: Sherman Collazo III, MD ADM AUTHOR: Jo Ann Martinez MD * ALL edits or amendments must be made on the electronic/computer document * Subjective Subjective Admission EGA: Weeks: 39 Days: 1 EGA at delivery (wks/days): 39 weeks (+) Status/day: post operative (day 2.5) Patient reports: Patient reports: Yes: normal lochia, tolerating po well, voiding well. No: pain management effective, vomiting, excessive bleeding. Comments: not nursing. states she has pain especially when moving around. She states she wishes she would have never said anythign about the morphine making her not breathe--it's not an allergy, "it's just they gave me too much." The patient also requests xanax 1 mg TID which she normally takes. Comments: I was asking the patient about going home, [...] her baby is here in the NICU, why not stay. She states that going to the NICU makes her vey anxious. She says perhaps she has too much "empathy." The pt states she had PNC at [facility], but then stopped going. She doesn't like them because of the morphine issue. She states she was going to breast feed, but they asked her to set an alarm every 2 hours, but her phone is . She can't call home because all calls are long distance, and her room phone won't allow it. When I offered to find her a derrick boat runner for her phone, she said no it's off, and I have to pay the bill first. I asked about any h/o CPS--the pt said she one time had to take a drug test, but currently she does not think there's any problems. Objective Nursing Documentation Review Nursing data: The data set between the solid lines has been imported from nursing documentation. Any exceptions have been noted below under Provider comments. Feeding preference: Provider comments on imported nursing data: [] General VS: Vital Signs Date Temp Pulse Resp B/P B/P Mean Pulse Ox FiO2 09/15-09/16 98.0-99.1 69-85 18 135-145/65-78 Last Documented: Result Date Time B/P 145/65 09/16 423 Temp 98.5 09/16 423 Pulse 69 09/16 423 Resp 18 09/16 423 B/P Mean 94.0 09/14 603 Pulse Ox 97 09/14 603 Patient Weight Weight (lb): 200 Weight (oz): Weight (kg): 90.718 Notes: WNWDFNAD, ambulating well Physical Exam Lungs: unlabored breathing Neuro: Exam: alert, normal speech, normal gait, CNII-XII grossly intact Abdomen: soft, no abnormal tenderness, no guarding Incision site: dressing clean dry, dry, no drainage Uterus: firm, non-tender Lower extremities: Edema: 1+ pitting Calf tenderness: negative Diagnosis, Assessment Plan Diagnosis, Assessment Plan Problem List/A P: 1. Status post delivery Assessment: doing well except BP elevated. Pt states due to pain and not getting her medications. Plan: My plan is to watch her a little longer, preferably overnight,but the pt is unwilling to wait, eventhough her baby is here and she could spend time in the NICU. The pt wants to leave AMA. Consultation(s): Consultation performed: social work assistant (per nurse, they saw her alread) at 0937 RPT #:[id number] END OF REPORT [id number] 12:33:00 [facility] ([facility]) OB Postpart Progr Note REPORT#:[id number] REPORT STATUS: Signed DATE:09/15/20 TIME: 1233 PATIENT: MARTINE LENTZ UNIT #: [id number] ROOM/BED: 2020-A : 82 AGE: 40 SEX: F ATTEND: Sherman Collazo III, MD ADM AUTHOR: Nael Carter MD * ALL edits or amendments must be made on the electronic/computer document * Subjective Subjective Status/Day: post operative (1) Patient reports: Patient reports: Yes no complaints (wants to go for a smoke), Yes normal lochia, Yes pain management effective, Yes tolerating po well, Yes tolerating ambulation Nursing reports: Nursing reports: No complaints Objective Nursing Documentation Review Nursing Data: The data set between the solid lines has been imported from nursing documentation. Any exceptions have been noted below under Provider comments. Feeding preference: Provider comments on imported nursing data: [] General VS: Vital Signs: Date Time Temp Pulse Resp B/P B/P Pulse O2 O2 Flow FiO2 Mean Ox Delivery Rate 09/15 0815 97.9 74 18 120/74 09/15 0408 98.4 68 18 116/64 09/14 2349 98.4 70 18 117/69 09/14 1953 97.7 72 18 124/64 09/14 1250 98.4 71 20 138/75 Patient Weight Weight (lb): 200 Weight (oz): Weight (kg): 90.718 Physical Exam Neuro: Exam: alert, oriented x3, normal speech Abdomen: soft, no abnormal tenderness, no guarding, no rebound tenderness Incision site: well approximated edges, selina intact, no drainage Uterus: firm, involution appropriate, non-tender Fundus: below the umbilicus Lochia: normal Lower extremities: Edema: 1+ pitting Result Findings/Data: Laboratory Tests: 09/15 0551 Hematology WBC (6.6 - [...] % (Auto) (14.3 - 34.3 %) 19.0 Garvin % (Auto) (5.1 - 10.4 %) 3.7 L Eos % (Auto) (0.1 - 3.0 %) 0.9 Baso % (Auto) (0.1 - 1.0 %) 0.2 Neut # (Auto) (K/mm3) 13.3 Lymph # (Auto) (K/mm3) 3.3 Garvin # (Auto) (K/mm3) 0.7 Eos # (Auto) (K/mm3) 0.15 Baso # (Auto) (K/mm3) 0.0 Diagnosis, Assessment Plan Diagnosis, Assessment Plan Free text A P: 40 yo s/p Repeat c/s POD #1 Assessment: nml progress Plan: routine care, discharge tomorrow Consultation(s): Consultation performed: pharmacist repain choices for pain mediction plan to use Toradol IM q6hr and tramadol po q6hrs change to po toradol tomorrow possible dc home tomorrow at 1245 RPT #:[id number] END OF REPORT [id number] 13:34:00 [facility] ([facility]) Clinical Note REPORT#:[id number] REPORT STATUS: Signed DATE:09/14/20 TIME: 1334 PATIENT: MARTINE LENTZ UNIT #: [id number] ROOM/BED: [address] : 82 AGE: 40 SEX: F ATTEND: Sherman Collazo III, MD ADM AUTHOR: Jo Ann Martinez MD * ALL edits or amendments must be made on the electronic/computer document * Clinical Note Note: visited with patient. She is doing alright. She has some pain around abdomen, and some back pain--she thinks from the bed. She would like to restart her usual meds: gabapentin 600 mg p TID for anxiety Zoloft 50 mg qhs for depression Risperidone 2 mg qhs for schizoafective She is not planning to breastfeed. She declines breast binders. She is yet uncertain re circumcision Vital Signs: Date Time Temp Pulse Resp B/P [...] 09/14 0200 88 110/56 96 09/14 0149 97.6 24 hours ending at 0700 09/14 0700 09/13 2300 09/13 1500 Intake Total 1475.00 Output Total 1100.00 Balance 375.00 Intake, Other 1475.00 Output, Other 1100.00 Patient 90.718 kg Weight 24 Hour I O Total 09/14 0700 Intake Total 1475.00 Output Total 1100.00 Balance 375.00 breasts non engorged abd with binder, NT extr no calf T Urine clear-yellow in Tracy bag Laboratory Tests: 09/14 09/14 09/13 09/13 0642 0006 2339 2320 Chemistry Sodium (135 - 145 mEq/L) 135 Potassium [...] L Albumin (3.4 - 4.8 gm/dL) 2.6 L Hematology WBC (6.6 - 12.1 K/mm3) 20.9 [...] (Auto) (14.3 - 34.3 %) 12.9 L Garvin % (Auto) (5.1 - 10.4 %) 4.4 L Eos % (Auto) (0.1 - 3.0 %) 1.0 Baso % (Auto) (0.1 - 1.0 %) 0.2 Neut # (Auto) (K/mm3) 16.9 Lymph # (Auto) (K/mm3) 2.7 Garvin # (Auto) (K/mm3) 0.9 Eos # (Auto) (K/mm3) 0.21 Baso # (Auto) (K/mm3) 0.1 Serology Treponema pallidum Ab (NONREACTIVE) NONREACTIVE Hep Bs Antigen (NONREACTIVE) NONREACTIVE Hepatitis C Antibody (NONREACTIVE) NONREACTIVE Hep C Ab Signal/Cutoff (<0.80) 0.10 HIV 1 2 Antibody (NONREACTIVE) NONREACTIVE SARS-CoV-2 Ag (Rapid) (NEGATIVE) NEGATIVE A/P POD 0, doing well will restart meds not breast feeding labs reviewed will check rubella status at 1338 RPT #:[id number] END OF REPORT [id number] 01:44:00 [facility] ([facility]) Clinical Note REPORT#:[id number] REPORT STATUS: Signed DATE:09/14/20 TIME: 143 PATIENT: MARTINE LENTZ UNIT #: [id number] ROOM/BED: [address] : 82 AGE: 40 SEX: F ATTEND: Sherman Collazo III, MD ADM AUTHOR: Sherman Collazo III, MD * ALL edits or amendments must be made on the electronic/computer document * Clinical Note Note: SKIRT CLIPPER Hospitalist Zay To meet the standard of care, there was a need for a surgical dressing maker on this patient's c/section. There were no medical students, residents or any other surgical assistants available to assist. I was present as the only surgical dressing maker for the entire procedure from start to finish. jr at 0148 RPT #:[id number] END OF REPORT [id number] 00:19:00 [facility] ([facility]) Full Op Note REPORT#:[id number] REPORT STATUS: Signed DATE:09/14/20 TIME: 18 PATIENT: MARTINE LENTZ UNIT #: [id number] ROOM/BED: [address] : 82 AGE: 40 SEX: F ATTEND: Sherman Collazo III, MD ADM AUTHOR: Nael Carter MD * ALL edits or amendments must be made on the electronic/computer document * Operative Report Start date: 09/14/20 Start time: 104 Pre-procedure diagnosis: 39 weeks previous c/s in labor Post-procedure diagnosis: 39 weeks previous c/s in labor Procedures performed: repeat section Technique/Procedure: CLEVE Primary Surgeon: nita Master Dyer(s): santana collazo Anesthesia: spinal anesthetic Operative findings: normal uterus, ovaries, tubes minimal adhesions male apgars 8/8 TOB 0110 Complications: none Estimated blood loss in ml's: 700 Specimens removed/altered: none Implant(s): none Free Text Op Notes Free Text Op Notes: After appropriate preoperative hydration, and heart rate monitoring with reactive tracing noted, the patient is taken to the operating room and placed in the sitting position. A spinal anesthetic is placed to the appropriate surgical level. The patient is placed in the supine position with a left lateral tilt. heart tones are again auscultated and found to be in the baseline range. A Tracy catheter is placed under sterile conditions. The [...] the Bovie transversely and then nicked transversely at the midline to open both layers. The fascial [...] incision with mild fundal pressure by the medical assistant. The baby is delivered easilyThe cord is clamped and cut. The vigorous and viable infant has good cry, color, tone, grimace and heart rate shortly after delivery The baby is immediately shown to the parents and then handed off to the baby nurse in attendance for further evaluation and care. Cord blood is obtained. The placenta is then delivered spontaneously, and found to be intact with a 3 vessel cord. The uterus is exteriorized and wrapped in a moist lap sponge. The uterus/ fallopian tubes and ovaries all appear normal. The uterine incision is repaired in 2 layers: the first layer is repaired with a running locked suture of 0- chromic and the second layer is imbricated. Hemostasis [...] meeting in the midline. The subcutaneous tissue is irrigated, and this layer is closed with a [...] the PACU in good condition. 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 MOTHER Family History: Unremarkable Allergies Coded Allergies: morphine (Severe, "HEART STOPPED" 12/22/17) Objective General VS: Last Documented: Result Date Time B/P Mean 102.0 09/13 2330 B/P 148/71 09/13 2330 Pulse 90 09/13 2330 Vital Signs Date Temp Pulse Resp B/P B/P Mean Pulse Ox FiO2 09/13 90 148/71 102.0 Patient Weight Weight (lb): Weight (oz): Weight (kg): Physical Exam HEENT: normocephalic w/o injury Lungs: unlabored breathing Neuro: Exam: alert, oriented x3, normal speech Abdomen: gravid, soft, no abnormal tenderness, no rebound tenderness Musculoskeletal: normal inspection Uterine activity: Monitor: toco Frequency (description): regular Frequency (minutes): 1 Intensity: moderate Resting tone: relaxed Membranes: Membranes: Intact Lower extremities: Edema: 1+ pitting Baby A: Baby A baseline: 155 bpm Baby A variability: moderate 6-25 bpm Baby A accelerations: 15 X 15 Baby A decelerations: none Baby A FHR category: category 1 Result Findings/Data: Laboratory Tests: 09/13 09/13 2339 2320 Hematology WBC [...] (Auto) (14.3 - 34.3 %) 12.9 L Garvin % (Auto) (5.1 - 10.4 %) 4.4 L Eos % (Auto) (0.1 - 3.0 %) 1.0 Baso % (Auto) (0.1 - 1.0 %) 0.2 Neut # (Auto) (K/mm3) 16.9 Lymph # (Auto) (K/mm3) 2.7 Garvin # (Auto) (K/mm3) 0.9 Eos # (Auto) (K/mm3) 0.21 Baso # (Auto) (K/mm3) 0.1 Serology SARS-CoV-2 Ag (Rapid) (NEGATIVE) NEGATIVE Diagnosis, Assessment Plan Diagnosis, Assessment Plan Assessment/Impression: previous C/S, in labor (39 weeks), normal FHR pattern, reactive NST Plan: admit to inpatient, , delivery at 0212 RPT #:[id number] END OF REPORT [id number] 21:35:56[facility] Discharge Summary PATIENT NAME: MARTINE LENTZ PHYSICIAN: Liz Reid MD Admitted: MR NUMBER: [id number] DISCHARGED: 12/31/2017 02:01:00 REASON FOR ADMISSION: Martine Lentz is a 37-year-old female with a past psychiatric history, major depressive disorder, generalized anxiety disorder, and panic disorder, who presented to [facility] voluntarily for worsening depression and distressing auditory hallucinations in the context of medication compliance. On initial interview, the patient reported recurrence [...] She was also delusional that writers from [employer] put "black magic" on her a couple of months ago and this is the reason she started hearing voices. She endorsed depressed mood, anhedonia, worthlessness, guilt, and fatigue. However, she denied suicidal ideations. She was also positive for general anxiety disorder and panic disorder. FINAL DIAGNOSES: PRIMARY DIAGNOSES: Major depressive disorder, recurrent, severe with psychotic features. SECONDARY DIAGNOSES: Generalized anxiety disorder and panic disorder. PRINCIPAL PROCEDURE: Psychopharmacotherapy. SPECIAL PROCEDURES: None. HOSPITAL COURSE: Martine Lentz is a 37-year-old female that was admitted to Dr. Zhang's team from 12/30/2017 to 12/31/2017. The patient was on [...] writers on social media who she cannot [facility] Discharge Summary PATIENT NAME: MARTINE LENTZ PHYSICIAN: Liz Reid MD Admitted: MR NUMBER: [id number] DISCHARGED: 12/31/2017 02:01:00 REASON FOR ADMISSION: Martine Lentz is a 37-year-old female with a past psychiatric history, major depressive disorder, generalized anxiety disorder, and panic disorder, who presented to [facility] voluntarily for worsening depression and distressing auditory hallucinations in the context of medication compliance. On initial interview, the patient reported recurrence [...] for general anxiety disorder and panic disorder. FINAL DIAGNOSES: PRIMARY DIAGNOSES: Major depressive disorder, recurrent, severe with psychotic features. SECONDARY DIAGNOSES: Generalized anxiety disorder and panic disorder. PRINCIPAL PROCEDURE: Psychopharmacotherapy. SPECIAL PROCEDURES: None. HOSPITAL COURSE: Martine Lentz is a 37-year-old female that was admitted to Dr. Zhang's team from 12/30/2017 to 12/31/2017. The patient was on [...] writers on social media who she cannot [facility] Discharge Summary identify. She was much more forthcoming on day 2 of admission as she revealed a long history of distressing trauma that she experienced, including witnessing her dad shoot himself when she was [...] home continue her psychotropic medications, followup with [facility] Psychiatry and start therapy. MENTAL STATUS EXAM ON DISCHARGE: GENERAL: Well-groomed, well-nourished female, with good eye contact, calm attitude. No psychomotor retardation or activation, tics, tardive dyskinesia or tremor. SPEECH: Regular rate and rhythm. LUNGS: Good articulation. MOOD: "Good." AFFECT: Euthymic and congruent with mood. PERCEPTION: Denies any audiovisual hallucinations. THOUGHT PROCESS: Linear and goal directed. THOUGHT CONTENT: Denies suicidal ideations and homicidal ideations, positive for delusions that writers on social media put "black magic" on her and this is a reason for her voices in the past. INSIGHT: Partial. The patient is aware of why here and has a partial understanding of her mental illness; however, she believes that her auditory hallucinations were secondary to black magic from social media. JUDGMENT: Fair. The patient was cooperative with the treatment plan and plans to follow up with Psychiatry. Continue her psychotropic medications and do therapy on an outpatient basis. COGNITION, ALERTNESS, AND ORIENTATION: Alert and oriented to person, place, time and circumstance. She will state full name, location, day and why she is in hospital. MEMORY: Grossly intact, recall recent and remote. INTELLECTUAL FUNCTIONING: Average (high school education). ATTENTION: Intact. Able to stay focused throughout the interview. GAIT: Normal. LABORATORY DATA: [facility] Discharge Summary identify. She was much more forthcoming on day 2 of admission as she revealed a long history of distressing trauma that she experienced, including witnessing her dad shoot himself when she was [...] home continue her psychotropic medications, followup with [facility] Psychiatry and start therapy. MENTAL STATUS EXAM ON DISCHARGE: GENERAL: Well-groomed, well-nourished female, with good eye contact, calm attitude. No psychomotor retardation or activation, tics, tardive dyskinesia or tremor. SPEECH: Regular rate and rhythm. LUNGS: Good articulation. MOOD: "Good." AFFECT: Euthymic and congruent with mood. PERCEPTION: Denies any audiovisual hallucinations. THOUGHT PROCESS: Linear and goal directed. THOUGHT CONTENT: Denies suicidal ideations and homicidal ideations, positive for delusions that writers on social media put "black magic" on her and this is a reason for her voices in the past. INSIGHT: Partial. The patient is aware of why here and has a partial understanding of her mental illness; however, she believes that her auditory hallucinations were secondary to black magic from social media. JUDGMENT: Fair. The patient was cooperative with the treatment plan and plans to follow up with Psychiatry. Continue her psychotropic medications and do therapy on an outpatient basis. COGNITION, ALERTNESS, AND ORIENTATION: Alert and oriented to person, place, time and circumstance. She will state full name, location, day and why she is in hospital. MEMORY: Grossly intact, recall recent and remote. INTELLECTUAL FUNCTIONING: Average (high school education). ATTENTION: Intact. Able to stay focused throughout the interview. GAIT: Normal. LABORATORY DATA: [facility] Discharge Summary Serum less than 1. Lipid profile, cholesterol 132, triglycerides 122, HDL 21, LDL 87. RPR nonreactive. TSH 2.42. DRUG REACTIONS: None. DISCHARGE MEDICATIONS: 1. Effexor 37.5 mg p.o. daily. 2. Risperdal 1 mg p.o. b.i.d. DISCHARGE INSTRUCTIONS: Provided to the patient. PHYSICAL ACTIVITY: As tolerated. DRIVING RESTRICTIONS: Do not drive after taking sedating medications such as Risperdal. FOLLOWUP: The patient has a followup appointment scheduled with Dr. Morocho on 01/07/2018 at 1 p.m. and has been given specific instructions on how to get to the appointment. She was also given resources [facility] for therapy. DISPOSITION: Martine Lentz is currently stable and tolerating all her medications. We are discharging the patient to her home. The patient's prognosis is fair; however, if she is able to be compliant with her psychotropic medications and consistent with her outpatient followup, she should do very well. She has been encouraged to abstain from illicit drug use and not to discontinue any of her psychotropic medications without the guidance of her outpatient psychiatrist. 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 She has been given the [facility] hotline, which is and the information about [facility] if she wishes to be in therapy. Liz Reid MD [facility] Discharge Summary Serum less than 1. Lipid profile, cholesterol 132, triglycerides 122, HDL 21, LDL 87. RPR nonreactive. TSH 2.42. DRUG REACTIONS: None. DISCHARGE MEDICATIONS: 1. Effexor 37.5 mg p.o. daily. 2. Risperdal 1 mg p.o. b.i.d. DISCHARGE INSTRUCTIONS: Provided to the patient. PHYSICAL ACTIVITY: As tolerated. DRIVING RESTRICTIONS: Do not drive after taking sedating medications such as Risperdal. FOLLOWUP: The patient has a followup appointment scheduled with Dr. Morocho on 01/07/2018 at 1 p.m. and has been given specific instructions on how to get to the appointment. She was also given resources for [facility] for therapy. DISPOSITION: Martine Lentz is currently stable and tolerating all her medications. We are discharging the patient to her home. The patient's prognosis is fair; however, if she is able to be compliant with her psychotropic medications and consistent with her outpatient followup, she should do very well. She has been encouraged to abstain from illicit drug use and not to discontinue any of her psychotropic medications without the guidance of her outpatient psychiatrist. 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 She has been given the [facility] hotline, which is and the information about [facility] if she wishes to be in therapy. Liz Reid MD [facility] Discharge Summary MD HENOK Desai/ISAIAH TD: 01/10/2018 23:37 CC:Norma Zhang MD Electronically Authenticated and Edited by: Liz Reid MD On 01/24/2018 09:35 PM CDT [facility] Discharge Summary MD HENOK Desai/ISAIAH TD: 01/10/2018 23:37 CC:Norma Zhang MD Electronically Authenticated and Edited by: Liz Reid MD On 01/24/2018 09:35 PM CDT Electronically Authenticated by: Norma Zhang MD On 01/26/2018 01:31 PM [id number] 12:05:40[facility] Psych Eval PATIENT NAME: MARTINE LENTZ PHYSICIAN: Liz Reid MD Admitted: MR NUMBER: [id number] DISCHARGED: Psych Eval Patient Name: MARTINE LENTZ Date of Service: Date of : 1980 Clinician: Liz Reid MD User Field 1: J Encounter Visit: BI User Field 3: J Referring Norma Zhang MD Clinician: DATE OF ADMISSION: 12/29/2017 ATTENDING PHYSICIAN: Norma Zhang MD TIME OF PSYCHIATRIC EVALUATION: 12/30/2017 at 8:30 a.m. INFORMANTS: The patient, [place] medical record. CHIEF COMPLAINT: "I need help for these voices." HISTORY OF PRESENT ILLNESS: Martine Lentz is a 37-year-old female with a past psychiatric history of major depressive disorder, generalized anxiety disorder, panic disorder, and opioid use disorder, who came into [facility] voluntarily for worsening depression and distressing auditory hallucinations. She has had one psychiatric hospitalization here and was discharged from [facility] in March 2013. She reports that she was doing okay and off all her medications until 1 year ago when her cousin committed suicide. Since then she started feeling very depressed. As her depression continued, she started hearing voices of [...] distressing that she quit her job at [employer]. She has also been having delusions for [...] used marijuana over a year ago. She also endorses doing meth 2 weeks ago; however, prior to that, she last used meth over a year ago. Her urine drug screen was positive for benzodiazepine and THC only. She states she sought help for this depression and these voices 2 [facility] Psych Eval PATIENT NAME: MARTINE LENTZ PHYSICIAN: Liz Reid MD Admitted: MR NUMBER: [id number] DISCHARGED: Psych Eval Patient Name: MARTINE LENTZ Date of Service: Date of : 1980 Clinician: Liz Reid MD User Field 1: J Encounter Visit: [facility] User Field 3: J Referring Norma Zhang MD Clinician: DATE OF ADMISSION: 12/29/2017 ATTENDING PHYSICIAN: Norma Zhang MD TIME OF PSYCHIATRIC EVALUATION: 12/30/2017 at 8:30 a.m. INFORMANTS: The patient, [place] medical record. CHIEF COMPLAINT: "I need help for these voices." HISTORY OF PRESENT ILLNESS: Martine Lentz is a 37-year-old female with a past psychiatric history of major depressive disorder, generalized anxiety disorder, panic disorder, and opioid use disorder, who came into [facility] voluntarily for worsening depression and distressing auditory hallucinations. She has had one psychiatric hospitalization here and was discharged from [facility] in March 2013. She reports that she was doing okay and off all her medications until 1 year ago when her cousin committed suicide. Since then she started feeling very depressed. As her depression continued, she started hearing voices of [...] distressing that she quit her job at [employer]. She has also been having delusions for [...] used marijuana over a year ago. She also endorses doing meth 2 weeks ago; however, prior to that, she last used meth over a year ago. Her urine drug screen was positive for benzodiazepine and THC only. She states she sought help for this depression and these voices 2 Patient Name: MARTINE LENTZ weeks ago at a clinic. She states she [...] rapid speech, and impulsivity. She does endorse distressing anxiety about everything, but would not elaborate further. She also endorses a long history of panic attacks described as [...] gets from her physician. She endorses a history of "a lot of tragedy", but would not elaborate on the trauma that she has experienced. PSYCHIATRIC REVIEW OF SYSTEMS: Positive for symptoms of depression (see HPI), positive for auditory hallucinations (see HPI), positive for bizarre delusions (see HPI), negative for visual hallucinations, negative for current or past episodes of arnaud, positive for generalized anxiety, positive for panic attacks (see HPI), negative for suicidal ideations, and negative for homicidal ideations. PAST PSYCHIATRIC HISTORY: The patient has had one hospitalization at [facility]. She was discharged from [facility] in March 2013. At that time, she was diagnosed with major depressive disorder, panic disorder, and generalized anxiety disorder. She [...] a history of suicide attempts or self-injurious behavior. SUBSTANCE USE: The patient took a couple of puffs of marijuana 2 days ago to try to get the voices away. Prior to that, she has not used marijuana in over a year. She also did meth once two weeks ago by smoking it; however, prior to that, she states she last used it over a year ago. She denies all other drug use, including alcohol. PAST MEDICAL HISTORY: Denies. Patient Name: MARTINE LENTZ weeks ago at a clinic. She states she [...] rapid speech, and impulsivity. She does endorse distressing anxiety about everything, but would not elaborate further. She also endorses a long history of panic attacks described as [...] gets from her physician. She endorses a history of "a lot of tragedy", but would not elaborate on the trauma that she has experienced. PSYCHIATRIC REVIEW OF SYSTEMS: Positive for symptoms of depression (see HPI), positive for auditory hallucinations (see HPI), positive for bizarre delusions (see HPI), negative for visual hallucinations, negative for current or past episodes of arnaud, positive for generalized anxiety, positive for panic attacks (see HPI), negative for suicidal ideations, and negative for homicidal ideations. PAST PSYCHIATRIC HISTORY: The patient has had one hospitalization at [facility]. She was discharged from [facility] in March 2013. At that time, she was diagnosed with major depressive disorder, panic disorder, and generalized anxiety disorder. She [...] a history of suicide attempts or self-injurious behavior. SUBSTANCE USE: The patient took a couple of puffs of marijuana 2 days ago to try to get the voices away. Prior to that, she has not used marijuana in over a year. She also did meth once two weeks ago by smoking it; however, prior to that, she states she last used it over a year ago. She denies all other drug use, including alcohol. PAST MEDICAL HISTORY: Denies. Patient Name: MARTINE LENTZ HOME MEDICATIONS: 1. Zoloft. 2. Vistaril. 3. Xanax 0.5 mg t.i.d. ALLERGIES: NO KNOWN ALLERGIES. PAST SURGICAL HISTORY: . SOCIAL HISTORY: The patient currently lives with her 8-year-old daughter. She is not . She also has a 5-year-old son, who lives with her mom. She has good social support from her mom. She was last employed at the [employer], but stopped working because of the voices. [...] , which were very anxiety provoking for her. FAMILY HISTORY: The patient's father shot himself when the patient was in first grade. REVIEW OF SYSTEMS: GENERAL: Denied. HEENT: Denied. CARDIOVASCULAR: Denied. RESPIRATORY: Denied. GASTROINTESTINAL: Denied. GENITOURINARY: Denied. MUSCULOSKELETAL: Denied. ENDOCRINE: Denied. NEUROLOGIC: Denied. SKIN: Denied. PHYSICAL EXAMINATION: VITAL SIGNS: Temperature 97.4, pulse 77, respiration 18, and blood pressure 128/60. MENTAL STATUS EXAM: GENERAL: Disheveled, overweight, female, who laid on the bed throughout the entire interview, making poor eye contact, drowsy, and frequently falling asleep throughout the interview. She exhibited no Patient Name: MARTINE LENTZ HOME MEDICATIONS: 1. Zoloft. 2. Vistaril. 3. Xanax 0.5 mg t.i.d. ALLERGIES: NO KNOWN ALLERGIES. PAST SURGICAL HISTORY: . SOCIAL HISTORY: The patient currently lives with her 8-year-old daughter. She is not . She also has a 5-year-old son, who lives with her mom. She has good social support from her mom. She was last employed at the [employer], but stopped working because of the voices. [...] , which were very anxiety provoking for her. FAMILY HISTORY: The patient's father shot himself when the patient was in first grade. REVIEW OF SYSTEMS: GENERAL: Denied. HEENT: Denied. CARDIOVASCULAR: Denied. RESPIRATORY: Denied. GASTROINTESTINAL: Denied. GENITOURINARY: Denied. MUSCULOSKELETAL: Denied. ENDOCRINE: Denied. NEUROLOGIC: Denied. SKIN: Denied. PHYSICAL EXAMINATION: VITAL SIGNS: Temperature 97.4, pulse 77, respiration 18, and blood pressure 128/60. MENTAL STATUS EXAM: GENERAL: Disheveled, overweight, female, who laid on the bed throughout the entire interview, making poor eye contact, drowsy, and frequently falling asleep throughout the interview. She exhibited no Patient Name: MARTINE LENTZ psychomotor retardation, activation, tics, tardive dyskinesia or tremor. SPEECH: Regular rate, rhythm, and volume with good articulation. MOOD: "Very tired." AFFECT: Congruent and constricted. PERCEPTION: Positive for audio hallucinations. Negative for visual hallucinations. THOUGHT PROCESS: Linear and goal directed. THOUGHT CONTENT: Positive for delusions. Denies suicidal ideations, homicidal ideations or paranoia. INSIGHT: Fair. She is aware of why she is here, has an understanding of her mental illness and need for treatment. However, she has delusions that people put black magic on her and this is the reason for her voices. JUDGMENT: Fair. She is cooperative with the treatment plan. COGNITION: ALERTNESS AND ORIENTATION:; alert and oriented to person, place, time and circumstance, able to state full name, location, date, and why at hospital. MEMORY: Recall intact, able to name three words immediately and at 3 minutes. Recent memory intact, able to recall what happened yesterday. Remote memory intact and named the last 3 presidents. INTELLECTUAL FUNCTIONING: Average "high school education". ATTENTION: Intact. Able to spell "world" backwards. ABSTRACTION: Impaired. FUND OF KNOWLEDGE: Appropriate for education. Able to name 5 cities. GAIT: Normal. LABORATORY DATA: Serum alcohol less than 0.01. Serum beta hCG less than 1. CBC: WBC 12, RBC 4.09, hemoglobin 12.4, and hematocrit 38.3. CMP: Sodium 139, potassium 3.4, chloride 101, creatinine 0.7, BUN 6, AST 16, and ALT 11. Urine drug screen positive for benzodiazepine and THC. Lipid profile: Cholesterol 132, triglycerides 122, HDL 21, and LDL 87. RPR nonreactive. TSH 2.42. Urinalysis positive for blood, leukocyte esterase, white blood cell and rbc. ASSESSMENT: Martine Lentz is a 37-year-old female with a past psychiatric history of major depressive disorder, generalized anxiety disorder, and panic disorder, who presented to [facility] voluntarily for worsening depression and distressing auditory [...] to hear 2 different female voice making statements such as "I am going to kill you", "your mom and kids are ", "I killed your brother". She also has a delusion that writers from [employer] and [employer] put "black magic" on her a couple of months ago, and this is why she started hearing voices. She denies a history of voices or delusions outside Patient Name: MARTINE LENTZ psychomotor retardation, activation, tics, tardive dyskinesia or tremor. SPEECH: Regular rate, rhythm, and volume with good articulation. MOOD: "Very tired." AFFECT: Congruent and constricted. PERCEPTION: Positive for audio hallucinations. Negative for visual hallucinations. THOUGHT PROCESS: Linear and goal directed. THOUGHT CONTENT: Positive for delusions. Denies suicidal ideations, homicidal ideations or paranoia. INSIGHT: Fair. She is aware of why she is here, has an understanding of her mental illness and need for treatment. However, she has delusions that people put black magic on her and this is the reason for her voices. JUDGMENT: Fair. She is cooperative with the treatment plan. COGNITION: ALERTNESS AND ORIENTATION:; alert and oriented to person, place, time and circumstance, able to state full name, location, date, and why at hospital. MEMORY: Recall intact, able to name three words immediately and at 3 minutes. Recent memory intact, able to recall what happened yesterday. Remote memory intact and named the last 3 presidents. INTELLECTUAL FUNCTIONING: Average "high school education". ATTENTION: Intact. Able to spell "world" backwards. ABSTRACTION: Impaired. FUND OF KNOWLEDGE: Appropriate for education. Able to name 5 cities. GAIT: Normal. LABORATORY DATA: Serum alcohol less than 0.01. Serum beta hCG less than 1. CBC: WBC 12, RBC 4.09, hemoglobin 12.4, and hematocrit 38.3. CMP: Sodium 139, potassium 3.4, chloride 101, creatinine 0.7, BUN 6, AST 16, and ALT 11. Urine drug screen positive for benzodiazepine and THC. Lipid profile: Cholesterol 132, triglycerides 122, HDL 21, and LDL 87. RPR nonreactive. TSH 2.42. Urinalysis positive for blood, leukocyte esterase, white blood cell and rbc. ASSESSMENT: Martine Lentz is a 37-year-old female with a past psychiatric history of major depressive disorder, generalized anxiety disorder, and panic disorder, who presented to [facility] voluntarily for worsening depression and distressing auditory [...] to hear 2 different female voice making statements such as "I am going to kill you", "your mom and kids are ", "I killed your brother". She also has a delusion that writers from [employer] put "black magic" on her a couple of months ago, and this is why she started hearing voices. She denies a history of voices or delusions outside Patient Name: MARTINE LENTZ of these last few months. These voices started in the context of no drug use. She was also positive for general anxiety disorder and panic disorder. PRIMARY DIAGNOSES: Major depressive disorder, recurrent, severe with psychotic features. SECONDARY DIAGNOSES: Generalized anxiety disorder and panic disorder. PLAN: Martine Lentz will be admitted to Dr. Zhang's service on the [facility] and placed on suicide, elopement, and standard PICU precautions and unit restrictions. She will be started on Effexor XR 37.5 mg p.o. daily for her depression, Risperdal 1 mg p.o. b.i.d. for her psychosis, trazodone 50 mg at bedtime p.r.n. for unspecified insomnia and Vistaril 50 mg q.6 hours p.r.n. for unspecified anxiety. She will also be started on Klonopin 0.5 mg t.i.d. with plan to taper to prevent benzodiazepine withdrawal symptoms as she has been chronically taking Xanax 0.5 mg t.i.d. at home. She was offered nicotine patch and gum for nicotine replacement. Internal Medicine has been consulted for current medical needs. She will be monitored daily while in the unit. We will plan to discharge the patient to her home. She has been encouraged to attend all group therapy sessions, participate in her treatment and to bring any concerns to the attention of the treatment team. MD Norma Emerson MD Date Dictated: 12/30/2017 Date 12/30/2017 Transcribed: HENOK/CLAYTON/JOAQUIN/CHASIDY cc:Norma Zhang MD Electronically Authenticated and Edited by: Liz Reid MD On 2018 12:05 PM CDT Patient Name: MARTINE LENTZ of these last few months. These voices started in the context of no drug use. She was also positive for general anxiety disorder and panic disorder. PRIMARY DIAGNOSES: Major depressive disorder, recurrent, severe with psychotic features. SECONDARY DIAGNOSES: Generalized anxiety disorder and panic disorder. PLAN: Martine Lentz will be admitted to Dr. Zhang's service on the [facility] and placed on suicide, elopement, and standard PICU precautions and unit restrictions. She will be started on Effexor XR 37.5 mg p.o. daily for her depression, Risperdal 1 mg p.o. b.i.d. for her psychosis, trazodone 50 mg at bedtime p.r.n. for unspecified insomnia and Vistaril 50 mg q.6 hours p.r.n. for unspecified anxiety. She will also be started on Klonopin 0.5 mg t.i.d. with plan to taper to prevent benzodiazepine withdrawal symptoms as she has been chronically taking Xanax 0.5 mg t.i.d. at home. She was offered nicotine patch and gum for nicotine replacement. Internal Medicine has been consulted for current medical needs. She will be monitored daily while in the unit. We will plan to discharge the patient to her home. She has been encouraged to attend all group therapy sessions, participate in her treatment and to bring any concerns to the attention of the treatment team. MD Norma Emerson MD Date Dictated: 12/30/2017 Date 12/30/2017 Transcribed: HENOK/CLAYTON/JOAQUIN/CHASIDY cc:Norma Zhang MD Electronically Authenticated and Edited by: Liz Reid MD On 2018 12:05 PM CDT Electronically Authenticated by: Norma Zhang MD On 02/09/2018 04:15 PM [facility] [place]
[2025-02-25] MEDS ORDERED: LORAZEPAM 1 MG TABLET ONE (11:41)
[2025-02-25] MEDS ORDERED: NA CHLORIDE 0.9% 1,000 ML ONE (11:42)
[2025-02-25 11:52] LABS: Absolute Basophils 0.1 K/uL (0-0.5); Absolute Monocytes 0.6 K/uL (0.1-1.3); Basophils % 0.6 % (0-1.3); Eosinophils % 0.4 % (0-4.4); Hematocrit 34.9 % (36.0-45.0); Hemoglobin 11.7 g/dL (12.0-15.0); Lymphocytes % 17.1 % (15.3-44.8); MCH 28.4 pg (27.0-35.0); MCHC 33.6 g/dL (32.0-36.0); MCV 84.5 fL (80-100); MPV 7.9 fL (7.6-11.3); Monocytes % 5.1 % (3.3-12.3); Neutrophils % 76.8 % (41.7-73.7); Platelets 338 thou/uL (152-406); RBC Red Blood Cell Count 4.13 M/uL (3.86-4.86); Red Cell Distribution Width 15.2 % (12.1-15.2)
[2025-02-25 12:09] LABS: Albumin 3.8 g/dL (3.4-5.0); Anion Gap 8.6 mEq/L (5.0-15.0); Bilirubin Total 0.4 mg/dL (0.2-1.0); Globulin 3.7 g/dL (2.3-3.5); Potassium 3.6 mEq/L (3.5-5.1); Protein, Total 7.5 g/dL (6.4-8.2)
--- NOTE | 2025-02-25 13:15 | ER ---
Nurse's Notes [facility] Name: Miriam Fried Age: 45 yrs Sex: Female : 1980 Arrival Date: 02/25/2025 Time: 11:17 Bed 18 Private MD: Diagnosis: Anxiety disorder, unspecified Presentation: 02/25 11:20 Chief complaint: Patient states: "I just felt dehydrated this morning, I felt dizzy but aa5 I drank some water and felt better". Pt also reports feeling anxious and not sleeping last night. Reports she is homeless and sleeps at the [facility] [employer]. 11:20 Coronavirus screen: At this time, the client does not indicate any symptoms associated aa5 with coronavirus-19. Ebola Screen: Patient denies travel to an Ebola-affected area in the 21 days before illness onset. Initial Sepsis Screen: Does the patient meet any 2 criteria? HR > 90 bpm. Does the patient have a suspected source of infection? No. Patient's initial sepsis screen is negative. Risk Assessment: Do you want to hurt yourself or someone else? Patient reports no desire to harm self or others. Onset of symptoms was January 2025. 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 - Infectious Disease History:: Denies. - Social history:: Smoking status: Patient reports the use of cigarette tobacco products. Screenin:20 [facility] ED Fall Risk Assessment (Adult) History of falling in the last 3 months, aa5 including since admission No falls in past 3 months (0 pts) Confusion or Disorientation No (0 pts) Intoxicated or Sedated No (0 pts) Impaired Gait No (0 pts) Mobility Assist Device Used No (0 pt) Altered Elimination No (0 pt) Score/Fall Risk Level 0 - 2 = Low Risk Oriented to surroundings, Maintained a safe environment, Educated pt \\T\\ family on fall prevention, incl call for assistance when getting out of bed, Assessed \\T\\ reinforced patient's understanding of fall precautions. Abuse screen: Denies threats or abuse. Nutritional screening: No deficits noted. Tuberculosis screening: No symptoms or risk factors identified. Assessment: 11:20 General: Appears comfortable, Behavior is calm, cooperative, Reports anxiety and aa5 reports not sleeping last night. Pain: Denies pain. Neuro: Level of Consciousness is awake, alert, obeys commands, Oriented to person, place, time, situation, Pt reports she felt dizzy today and "dehydrated" . Cardiovascular: Heart tones S1 S2 present Rhythm is regular. Respiratory: Airway is patent Respiratory effort is even, unlabored, Respiratory pattern is regular, symmetrical. GI: No signs and/or symptoms were reported involving the gastrointestinal system. : No signs and/or symptoms were reported regarding the genitourinary system. EENT: No signs and/or symptoms were reported regarding the EENT system. Derm: Skin is pink, warm \\T\\ dry. Musculoskeletal: Range of motion: intact in all extremities. Vital Signs: 11:20 BP 152 / 77; Pulse 107; Resp 16 S; Temp 98.7(O); Pulse Ox 97% on R/A; Weight 72.57 kg aa5 (R); Height 5 ft. 4 in. (R); 13:00 BP 152 / 94; Pulse 97; Resp 16; Pulse Ox 98% ; me1 11:20 Body Mass Index 27.46 (72.57 kg, 162.56 cm) aa5 ED Course: 11:20 Patient arrived in ED. aa5 11:20 Arm band placed on. aa5 11:20 Patient has correct armband on for positive identification. Bed in low position. Call aa5 light in reach. Side rails up X 1. Client placed on continuous cardiac and pulse oximetry monitoring. NIBP monitoring applied. front desk monitor on. Pulse ox on. NIBP on. 11:23 Mikayla English FNP-C is PHCP. kb 11:23 Zay Graves MD is Attending Physician. kb 11:24 Triage completed. aa5 11:25 Haley Gardner, MARY is Primary Nurse. aa5 11:30 Missed attempt(s): 20 gauge in left wrist. Bleeding controlled, band aid applied, aa5 catheter tip intact. 11:35 Missed attempt(s): 20 gauge in right wrist. Bleeding controlled, band aid applied, aa5 catheter tip intact. 11:56 Inserted saline lock: 22 gauge in left antecubital area, using aseptic technique. Blood ss collected. Flushed with 10 mL NS. 12:00 Report given to MARY Estrada. aa5 13:24 No provider procedures requiring assistance completed. me1 13:36 Provided Education on: POC, Verbalized understanding.. me1 13:36 IV discontinued, intact, bleeding controlled, No redness/swelling at site. Pressure me1 dressing applied. Administered Medications: 11:43 Drug: LORazepam PO 1 mg PO once Route: PO; aa5 13:35 Follow up: Response: No adverse reaction me1 12:05 Drug: NS 0.9% IV 1000 ml IV at 1000 ml once; to be given as a bolus over 60 minutes aa5 Route: IV; Rate: 1000 ml; Site: left antecubital; 13:35 Follow up: Response: No adverse reaction; IV Status: Completed infusion; IV Intake: me1 1000ml Medication: 11:25 VIS not applicable for this client. aa5 Intake: 13:35 IV: 1000ml; Total: 1000ml. me1 Outcome: 13:14 Discharge ordered by . isaías 13:36 Discharged to home ambulatory, me1 13:36 Condition: stable 13:36 Discharge instructions given to patient, Instructed on discharge instructions, follow up and referral plans. Demonstrated understanding of instructions, follow-up care, 13:37 Patient left the ED. me1 Signatures: Mikayla English, STEFANIA-Deborah AGUIAR-Haley Prater, RN RN aa5 Alona Vargas RN RN ss Natalie Hubbard, MARY RN me1 Corrections: (The following items were deleted from the chart) 11:26 11:20 Initial Sepsis Screen: Does the patient meet any 2 criteria? No. Patient's aa5 initial sepsis screen is negative. Does the patient have a suspected source of infection? No. Patient's initial sepsis screen is negative. aa5
--- NOTE | 2025-02-25 13:15 | EDPHYS ---
Physician Documentation [facility] Name: Miriam Fried Age: 45 yrs Sex: Female : 1980 Arrival Date: 02/25/2025 Time: 11:17 Bed 18 Private MD: ED Physician Zay Graves HPI: 02/25 12:08 This 45 yrs old Female presents to ER via Ambulatory with complaints of Anxiety, kb Dehydrated. 12:08 Pt is a 45 year old female who presents for "dehydration and anxiety." States she has kb been in the sun more than normal because the library was closed yesterday and she couldn't go to the park to get in the shade like normal because of [employer]. States she has to leave the [employer] at 0700 and they don't let them back in until 5pm. . 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 - Infectious Disease History:: Denies. - Social history:: Smoking status: Patient reports the use of cigarette tobacco products. ROS: 12:08 Constitutional: As per HPI kb Exam: 12:08 Constitutional: This is a well developed, well nourished patient who is awake, alert, kb and in no acute distress. Head/Face: Normocephalic, atraumatic. ENT: Moist Mucous membranes Cardiovascular: Regular rate Respiratory: Respirations even and unlabored. No increased work of breathing. Talking in full sentences Abdomen/GI: Soft, non-tender. No distention Skin: Warm, dry with normal turgor. Normal color. MS/ Extremity: Pulses equal, no cyanosis. Neurovascular intact. Full, normal range of motion. Neuro: Awake and alert, GCS 15, oriented to person, place, time, and situation. Vital Signs: 11:20 BP 152 / 77; Pulse 107; Resp 16 S; Temp 98.7(O); Pulse Ox 97% on R/A; Weight 72.57 kg aa5 (R); Height 5 ft. 4 in. (R); 13:00 BP 152 / 94; Pulse 97; Resp 16; Pulse Ox 98% ; me1 11:20 Body Mass Index 27.46 (72.57 kg, 162.56 cm) aa5 MDM: 11:23 Medical Screening Exam initiated 13:09 Data reviewed: vital signs, nurses notes. 13:13 Differential diagnosis: stress reaction, dehydration, abnormal electrolytes, anxiety. kb Historians other than the Patient: EMS: [facility]. Counseling: I had a detailed discussion with the patient and/or guardian regarding the historical points, exam findings, and any diagnostic results supporting the discharge/admit diagnosis, lab results, the need for outpatient follow up, a family practitioner, to return to the emergency department if symptoms worsen or persist or if there are any questions or concerns that arise at home. 13:14 Care significantly affected by the following Social Determinants of Health: Inadequate kb housing. 02/25 11:23 Order name: CBC with Diff; Complete Time: 12:02 kb 02/25 11:23 Order name: CMP; Complete Time: 12:10 kb 02/25 11:23 Order name: CPK; Complete Time: 12:10 02/25 11:23 Order name: IV Start; Complete Time: 11:56 02/25 12:57 Order name: Vital Signs; Complete Time: 13:35 kb Administered Medications: 11:43 Drug: LORazepam PO 1 mg PO once Route: PO; aa5 13:35 Follow up: Response: No adverse reaction me1 12:05 Drug: NS 0.9% IV 1000 ml IV at 1000 ml once; to be given as a bolus over 60 minutes aa5 Route: IV; Rate: 1000 ml; Site: left antecubital; 13:35 Follow up: Response: No adverse reaction; IV Status: Completed infusion; IV Intake: me1 1000ml Disposition Summary: 02/25/25 13:14 Discharge Ordered Notes: Location: Home Condition: Stable kb Diagnosis - Anxiety disorder, unspecified kb Followup: kb - With: Emergency Department - When: As needed - Reason: Worsening of condition Followup: kb - With: Private Physician - When: 2 - 3 days - Reason: Recheck today's complaints, Continuance of care, Re-evaluation by your physician Discharge Instructions: - Discharge Summary Sheet kb - Panic Attack, [id number] kb - Managing Anxiety, Adult kb Forms: - Medication Reconciliation Form kb - Antibiotic Education kb - Prescription Opioid Use kb - Patient Portal Instructions kb - Leadership Thank You Letter kb Addendum: 02/27/2025 09:01 Co-signature as Attending Physician, Zay Graves MD I reviewed the patient's care r n provided by the Advanced Practice Provider and agree with the diagnosis and treatment plan. Signatures: Dispatcher [employer] EDMikayla Lui, MAIL CARRIER-C MAIL CARRIER-Ckb Zay Graves MD MD rn Calderon, Audri RN RN aa5 Natalie Hubbard RN me1
[2025-02-27 17:39] VITALS: TEMP 98.7
[2025-02-27 17:41] VITALS: BP 152/94; O2SAT 98
== END 2025-02-25 13:37 | disposition home or self-care (01) ==
LOC: ER 11:17
DX: F41.9 Anxiety disorder, unspecified (principal); Z59.10 Inadequate housing, unspecified
CPT/HCPCS: 36415; 80053; 82550; 85025; 96360; 99285; J7030

== ENCOUNTER 2025-06-20 22:57 | Emergency (ER) | payer SELFPAY ==
--- OUTSIDE RECORDS SUMMARY | 2025-06-20 23:05 | XMS REPORT | Continuity of Care Document ---
Author Name Unknown Address [address] [facility] [address] [place] [address] [facility] Address [address] [facility] [address] [place] [address] Care Team Providers Care Incident Response Lead Name Role Phone Beata Jacqueline AGUIAR Primary Care Physician [phone] Sherman Collazo Attending Clinician Unavailable Rj Diez Attending Clinician Unavailab Rj Hardwick Attending Clinician Unavailab DELLA Boland Attending Clinician Unavailable MIGUEL A NATH Attending Clinician Unavailable MIGUEL A NATH Attending Clinician Unavailable Sanna DENTON, Argelia Liu Attending Clinician [phone] Della Mathews Attending Clinician [phone] WILLIAM TOVAR Attending Clinician Unavail able BILLIE HUDSON Attending Clinician Unavailable BILLIE HUDSON Attending Clinician Unavailable Oswaldo Davis MD Attending Clinician [phone] OSWALDO DAVIS Attending Clinician UnavailOSWALDO Del Rosario Attending Clinician UnavailMARI Carson Attending Clinician Unavailable Moira SMILEY, Mari Mullins Attending Clinician + BRIGITTE JIMENEZ Attending Clinician Unavailab Brigitte Strickland Attending Clinician + Zana HERNANDEZ, Alisa Attending Clinician Unavailabl e [email or web address] Attending Clinician UnavailJYOTI Velásquez Attending Clinician Unavailable SEPIDEH PALMER Attending Clinician Unavailab Sepideh Martini DO Attending Clinician + Doctor Unassigned, [place] Attending Clinician U GAGE Bowden Attending Clinician Unavailable Jeanette SMILEY, Gage Holloway Attending Clinician [phone] Ultrasound, Ang-m Attending Clinician Unavailchino Campos MD, Cheikh Zamudio Attending Clinician [phone] Fellow, [facility] Attending Clinician Un available Morro Savage MD Attending Clinician + Olga Lidia Corral MD Attending Clinician + Sanjana Sierra PA-C Attending Clinician [phone] Edson Emanuel Attending Clinician + Edson DELACRUZ Attending Clinician Unavailable Neville, [facility] Attending Clinician Lilia Mark MD, Porter Bar Attending Clinician + NORMA ZHANG M.D., NORMA Smith M.D. Attendin g Clinician Unavailable GAGE REID Admitting Clinician Unavailable Sherman Collazo Admitting Clinician Unavailable Rj Diez Admitting Clinician Unavailab le [email or web address] Admitting Clinician Unavailchino Reid MD, Gage Holloway Admitting Clinician [phone] NORMA ZHANG M.D., NORMA Smith Admitting Clin ician Unavailable Payers Payer Name Policy Type Policy Number Effective Date Expirati on Date Source [employer] MEDICAID [id number] 2020 00:00:00 [facility] [id number] 2025 00:00:00 [facility] [id number] 6501-07-23 00:00:00 [facility] (O) [id number] MEDICAID OF [place] [id number] 2020 00:00:00 Problems Condition Name Condition Details Condition Category Status Onset Date Resolution Date Last Treatment Date Treating Clinician Comments Source Obesity (BMI 30-39.9) Obesity (BMI 30-39.9) Disease Active 2019-11 00:00: 00 [facility] Severe episode of recurrent major depressive disorder, 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, without psychotic features Disease Active 03-15 00:00: 00 [place] [place] 03-15 00:00: 00 [facility] Tobacco use disorder Tobacco use disorder Disease Active 03-15 00:00: 00 [facility] 39 weeks gestation of 39 weeks gestation of Disease Resolve d 2019-11 00:00: 00 2025-03-07 00:00:00 2025-03-07 14:19:21 [facility] QT prolongati on QT prolongati on Disease Resolve d 2019-11 00:00: 00 2025-03-07 00:00:00 2025-03-07 14:19:24 [facility] Insufficie nt care in third trimester Insufficie nt care in third trimester Disease Resolve d 2019-11 00:00: 00 2025-03-07 00:00:00 2025-03-07 14:19:25 [facility] Supervisio n of high risk in third trimester Supervisio n of high risk in third trimester Disease Resolve d 14 00:00: 00 2025-03-07 00:00:00 2025-03-07 14:19:38 [facility] Previous section Previous section Disease Resolve d 5-14 00:00: 00 2025-03-07 00:00:00 2025-03-07 14:19:33 [facility] Medication exposure during first trimester of Medication exposure during first trimester of Disease Resolve d 03-15 00:00: 00 2025-03-07 00:00:00 2025-03-07 14:19:00 [facility] Abdominal pain, epigastric Abdominal pain, epigastric Disease Resolve d 4-27 00:00: 00 2020-03-15 00:00:00 2020-03-15 11:21:38 [facility] Allergies, Adverse Reactions, Alerts Allergy Name Allergy Type Status Severity Reaction(s) Onset Date Inactive Date Treating Clinician Comments Source PENICILL IN DRUG INGREDI Active Unknown-Cmnt 04-09 00:00: 00 [facility] SULFAMET HOXAZOLE -TRIMETH OPRIM DRUG Active Swelling 04-09 00:00: 00 [facility] Sulfamet hoxazole -Trimeth oprim Propensi ty to adverse reaction s Active Swelling 04-09 00:00: 00 [facility] Penicill in Propensi ty to adverse reaction s Active Unknown - See comments 04-09 00:00: 00 [facility] morphine DA Active SV 12-22 00:00: 00 [facility] morphine DA Active SV "HEART STOPPED" 12-22 00:00: 00 [facility] MORPHINE DRUG INGREDI Active Unknown-Cmnt 2010-11 00:00: 00 [facility] Morphine Propensi ty to adverse reaction s Active Unknown - See comments 2010-11 00:00: 00 Per patient she went into cardiac arrest after receiving morphine at the hospital March 2011 [facility] morphine Drug Active [facility] morphine Drug Active [facility] morphine Drug Active [facility] morphine Drug Active [facility] morphine Drug Active [facility] morphine Drug [facility] morphine Drug [facility] morphine Drug Active [facility] morphine Drug Active [facility] morphine Drug Active [facility] morphine Drug Active [facility] morphine Drug Active [facility] morphine Drug Active [facility] Social History Social Habit Start Date Stop Date Quantity Comments Source ASSERTION 2019-12-22 00:00:00 Not [facility] of tobacco use Cigarette Smoker [facility] Alcoholic beverage intake 2025-04-02 00:00:00 2025-04-02 00:00:00 Current drinker of alcohol (finding) [facility] History of Social function 2025-03-07 00:00:00 2025-03-07 00:00:00 [facility] Tobacco use and exposure 2024-05-26 00:00:00 2024-05-26 00:00:00 Smokeless tobacco non-user [facility] Alcohol intake 2023-05-01 00:00:00 2023-05-01 00:00:00 Current drinker of alcohol (finding) [facility] Exposure to SARS-CoV-2 (event) 2023-01-03 00:00:00 2023-01-13 21:35:00 Not sure [facility] Cigarettes smoked current (pack per day) - Reported 2020-03-15 00:00:00 2020-03-15 00:00:00 [facility] Sex assigned at 1980 00:00:00 1980 00:00:00 [facility] Smoking Status Start Date Stop Date Source Smokes tobacco daily 2024-05-26 00:00:00 [facility] Medications Ordered Medication Name Filled Medication Name Start Date Stop Date Current Medication? Ordering Clinician Indication Dosage Frequency Signature (SIG) Comments Components Source nicotine (NICODERM) 21 mg/24 hr patch 1 Patch 04-03 08:15: 00 Yes 1{patch } 1 Patch, Topical, Administer over 24 Hours, Q24H, First dose on Thu04/03/25 at 0315, Until Discontinu ed, Routine [facility] diphenhydrA MINE (BENADRYL) tablet 25 mg 04-03 08:15: 00 04-03 08:03 :00 No 25mg 25 mg, Oral, ONCE, 1 dose, On Thu04/03/25 at 0315, [facility] gabapentin (NEURONTIN) capsule 300 mg 04-03 01:00: 00 Yes 300mg 300 mg, Oral, TID, First dose on 04/02/25 at 2000, Until Discontinu ed, [facility] FLUoxetine (PROZAC) capsule 20 mg 04-03 01:00: 00 Yes 20mg 20 mg, Oral, DAILY, First dose on 04/02/25 at 1999, Until Discontinu ed, Routine [facility] ARIPiprazol e (ABILIFY) tablet 10 mg ARIPiprazol e (ABILIFY) tablet 10 mg 04-03 01:00: 00 Yes 10mg 10 mg, Oral, DAILY, First dose on [place] 04/02/25 at 2000, Until Discontinu ed, Routine [facility] LORazepam (ATIVAN) tablet 1 mg 04-03 00:45: 00 04-03 00:41 :00 No 1mg 1 mg, Oral, ONCE, 1 dose, On 04/02/25 at 1945, [facility] LORazepam (ATIVAN) tablet 1 mg 04-01 05:15: 00 04-01 05:08 :00 No 1mg 1 mg, Oral, ONCE, 1 dose, On 04/01/25 at 0015, [facility] metroNIDAZO LE 500 mg tablet 03-13 00:00: 00 Yes [id number] 500mg Take 1 tablet by mouth in the morning and 1 tablet in the evening. [facility] metoprolol succinate ER 50 mg tablet,exte nded release 24 hr 4-23 00:00: 00 Yes 1mg Freddy Castillo gabapentin 300 mg capsule 3-17 00:00: 00 Yes mg Freddy Castillo fluoxetine 20 mg capsule 3-17 00:00: 00 Yes mg Freddy Castillo aripiprazol e 5 mg tablet 3-17 00:00: 00 Yes mg Freddy Castillo levoFLOXaci n (LEVAQUIN) tablet 750 mg 04-15 19:15: 00 04-15 18:39 :00 No 750mg 750 mg, Oral, ONCE NOW, 1 dose, On Thu04/15/24 at 1415, CHRISTY, Reason for Anti-Infec tive: Documented Infection, Documented Infection Site: Urine, Duration of Therapy: Once (ED) [facility] ALPRAZolam (XANAX) tablet 1 mg 04-15 18:45: 00 04-15 18:39 :00 No 1mg 1 mg, Oral, ONCE, 1 dose, On Thu04/15/24 at 1345, CHRISTY [facility] NaCl 0.9% (NS) bolus infusion 1,000 mL 04-15 17:45: 00 04-15 18:48 :00 No 1000mL at 999 mL/hr, 1,000 mL, IV Piggyback, ONCE, 1 dose, On Thu04/15/24 at 1245, STAT [facility] ciprofloxac in HCl 500 mg tablet 04-15 00:00: 00 04-23 04:59 :00 No [id number] 500mg Take 1 tablet by mouth in the morning and 1 tablet in the evening. Do all this for 7 days. [facility] alprazolam 2 mg tablet 5-10 00:00: 00 Yes mg Freddy Castillo NaCl 0.9% (NS) bolus infusion 1,000 mL 05-01 19:00: 00 05-01 19:10 :00 No 1000mL at 999 mL/hr, 1,000 mL, IV Infusion, ONCE, 1 dose, On Thu05/01/23 at 1400, [facility] ondansetron (ZOFRAN (PF)) injection 4 mg 05-01 19:00: 00 05-01 18:53 :00 No 4mg 4 mg, Slow IV Push, ONCE, 1 dose, On Thu05/01/23 at 1400, [facility] cefTRIAXone (ROCEPHIN) 1,000 mg in [...] ONCE, 1 dose, On Thu05/01/23 at 1230, [facility] ondansetron 4 mg disintegrat ing tablet 05-01 00:00: 00 Yes [id number] 4mg Take 1 tablet by mouth every 8 (eight) hours as needed for Nausea and Vomiting (N/V). [facility] sulfamethox azole-trime thoprim 800-160 mg per tablet 05-01 00:00: 00 05-07 04:59 :00 No [id number] 1{tbl} Take 1 tablet by mouth every 12 (twelve) hours for 5 days. [facility] TRIAZOLAM -11 00:00: 00 Yes Freddy Castillo AMPHET/DEXT R 15MG Tablets 4-04 00:00: 00 Yes Freddy Castillo ARIPIPRAZOL E 30 00:00: 00 Yes Freddy Castillo OSELTAMIVIR 3-22 00:00: 00 Yes Freddy Castillo GABAPENTIN 3-0 3-09 00:00: 00 Yes Freddy Castillo FLUOXETINE 2022-0 3-06 00:00: 00 Yes Freddy Castillo TAKE 1 TABLET BY MOUTH THREE TIMES A DAY 2022-0 2-20 00:00: 00 Yes Freddy Castillo ZOLPIDEM ER 3-0 2-14 00:00: 00 Yes Freddy Castillo FLUOXETINE 2022-0 1-19 00:00: 00 Yes Freddy Castillo ZOLPIDEM 2022-0 1-18 00:00: 00 Yes Freddy Castillo IBUPROFEN 3-0 1-17 00:00: 00 Yes Freddy Castillo AMOXICILLIN 2022-0 1-17 00:00: 00 Yes Freddy Castillo CLINDAMYCIN 2022-0 1-12 00:00: 00 Yes Freddy Castillo TAKE 1 TABLET BY MOUTH EVERY 6 HOURS NEEDED 2022-0 1-12 00:00: 00 Yes Freddy Castillo ARIPIPRAZOL E 2022-0 1-11 00:00: 00 Yes Freddy Castillo CLONAZEPAM 2021-1 2-22 00:00: 00 Yes Freddy Castillo TAKE 1 TABLET BY MOUTH THREE TIMES A DAY 2021-1 2-19 00:00: 00 Yes 5 Freddy Castillo GABAPENTIN 2021-1 2-12 00:00: 00 Yes Freddy Castillo FLUOXETINE 2021-1 2-10 00:00: 00 Yes Freddy Castillo ZOLPIDEM 2021-1 1-18 00:00: 00 Yes Freddy Castillo TAKE 1 TABLET BY MOUTH EVERY DAY 2021-1 1-15 00:00: 00 Yes 20 Freddy Castillo TAKE 1 TABLET BY MOUTH EVERY DAY 2021-1 1-15 00:00: 00 Yes Freddy Castillo TAKE 1 CAPSULE BY MOUTH EVERY DAY 2021-1 1-04 00:00: 00 Yes 40 Freddy Castillo LATUDA 2021-1 0-12 00:00: 00 Yes 20 Freddy Castillo METRONIDAZO L 2021-0 9-30 00:00: 00 Yes 500 Freddy Castillo TAKE 1 CAPSULE BY MOUTH EVERY DAY 2021-0 9-13 00:00: 00 Yes Freddy Castillo LATUDA 2021-0 9-13 00:00: 00 Yes 20 Freddy Castillo MEDROXYPR AC INJ /ML 07-14 00:00: 00 Yes 150 Freddy Castillo ARIPIPRAZOL E 07-03 00:00: 00 Yes 20 Freddy Castillo HYDROXYZ ROSE 07-03 00:00: 00 Yes 50 Freddy Castillo MIRTAZAPINE 07-03 00:00: 00 Yes 30 Freddy Castillo Dose Unknown 8-05 00:00: 00 Yes Freddy Castillo Dose Unknown 05-28 00:00: 00 Yes Freddy Castillo Dose Unknown 05-28 00:00: 00 Yes Freddy Castillo Dose Unknown 05-28 00:00: 00 Yes Freddy Castillo Dose Unknown 05-28 00:00: 00 Yes Freddy Castillo Dose Unknown 05-28 00:00: 00 Yes Freddy Castillo risperiDONE 2 [...] mg-200 mg Cap 03-15 00:00: 00 Yes [id number] Take 1 TAB-CAP/M2 by mouth daily. [facility] PNV 102-iron-fo late 1-dss-dha (VITAFOL FE+, WITH DOCUSATE,) 90 mg iron-1 mg -50 mg-200 mg Cap 03-15 00:00: 00 Yes [id number] Take 1 TAB-CAP/M2 by mouth daily. [facility] LORazepam (ATIVAN) tablet 2 mg 06-23 02:00: 00 06-23 00:55 :00 No 2mg 2 mg, Oral, ONCE, 1 dose, Thu06/22/19 at 2100, CHRISTY [facility] gabapentin 300 mg capsule 06-22 00:00: 00 07-23 04:59 :00 No [id number] 300mg Take 1 capsule by mouth 2 (two) times daily for 30 days. [facility] Zoloft 50 mg tablet 12-18 00:00: [...] (MAG-OX 400) 400 mg tablet 2010-11 00:00: 03-15 00:00 :00 No 800mg Take 2 [...] Height/Length Measured 2020-07-25 11:28:48 Systolic blood pressure 2025-04-03 00:17:00 125 mm[Hg] [facility] Diastolic blood pressure 2025-04-03 00:17:00 69 mm[Hg] [facility] Heart rate 2025-04-03 00:17:00 94 /min [facility] Body temperature 2025-04-03 00:17:00 37.33 Lien [facility] Respiratory rate 2025-04-03 00:17:00 16 /min [facility] Body height 2025-04-03 00:17:00 152.4 cm [facility] Body weight 2025-04-03 00:17:00 72.576 kg [facility] BMI 2025-04-03 00:17:00 31.25 kg/m2 [facility] Oxygen saturation in Arterial blood by Pulse oximetry 2025-04-03 00:17:00 96 /min [facility] Systolic blood pressure 2025-04-01 04:04:00 132 mm[Hg] [facility] Diastolic blood pressure 2025-04-01 04:04:00 79 mm[Hg] [facility] Heart rate 2025-04-01 04:04:00 109 /min [facility] Body temperature 2025-04-01 04:04:00 37.5 Lien [facility] Respiratory rate 2025-04-01 04:04:00 25 /min [facility] Body height 2025-04-01 04:04:00 152.4 cm [facility] Body weight 2025-04-01 04:04:00 72.576 kg [facility] BMI 2025-04-01 04:04:00 31.25 kg/m2 [facility] Oxygen saturation in Arterial blood by Pulse oximetry 2025-04-01 04:04:00 96 /min [facility] Systolic blood pressure 2025-03-09 14:30:00 117 mm[Hg] [facility] Diastolic blood pressure 2025-03-09 14:30:00 58 mm[Hg] [facility] Heart rate 2025-03-09 14:30:00 80 /min [facility] Body temperature 2025-03-09 14:30:00 36.56 Lien [facility] Respiratory rate 2025-03-09 14:30:00 18 /min [facility] Body height 2025-03-09 14:30:00 152.4 cm [facility] Body weight 2025-03-09 14:30:00 73.171 kg [facility] BMI 2025-03-09 14:30:00 31.50 kg/m2 [facility] Systolic blood pressure 2025-03-07 18:46:00 118 mm[Hg] [facility] Diastolic blood pressure 2025-03-07 18:46:00 82 mm[Hg] [facility] Heart rate 2025-03-07 18:41:00 67 /min [facility] Body temperature 2025-03-07 18:41:00 35.17 Lien [facility] Respiratory rate 2025-03-07 18:41:00 18 /min [facility] Body height 2025-03-07 18:41:00 152.4 cm [facility] Body weight 2025-03-07 18:41:00 73.993 kg [facility] BMI 2025-03-07 18:41:00 31.86 kg/m2 [facility] Systolic blood pressure 2024-04-15 18:30:00 127 mm[Hg] [facility] Diastolic blood pressure 2024-04-15 18:30:00 77 mm[Hg] [facility] Respiratory rate 2024-04-15 18:30:00 20 /min [facility] Oxygen saturation in Arterial blood by Pulse oximetry 2024-04-15 18:30:00 98 /min [facility] Heart rate 2024-04-15 17:30:00 100 /min [facility] Body height 2024-04-15 16:39:00 152.4 cm [facility] Body weight 2024-04-15 16:39:00 69.854 kg [facility] BMI 2024-04-15 16:39:00 30.08 kg/m2 [facility] Body temperature 2024-04-15 16:35:00 36.56 Lien [facility] Systolic blood pressure 2024-04-09 15:00:00 128 mm[Hg] [facility] Diastolic blood pressure 2024-04-09 15:00:00 69 mm[Hg] [facility] Heart rate 2024-04-09 15:00:00 116 /min [facility] Respiratory rate 2024-04-09 15:00:00 16 /min [facility] Oxygen saturation in Arterial blood by Pulse oximetry 2024-04-09 15:00:00 100 /min [facility] Body temperature 2024-04-09 14:34:00 37 Lien [facility] Body height 2024-04-09 14:34:00 162.6 cm [facility] Body weight 2024-04-09 14:34:00 69.854 kg [facility] BMI 2024-04-09 14:34:00 26.43 kg/m2 [facility] Systolic blood pressure 2023-05-01 18:15:22 148 mm[Hg] [facility] Diastolic blood pressure 2023-05-01 18:15:22 73 mm[Hg] [facility] Heart rate 2023-05-01 18:15:22 93 /min [facility] Respiratory rate 2023-05-01 18:15:22 16 /min [facility] Oxygen saturation in Arterial blood by Pulse oximetry 2023-05-01 18:15:22 100 /min [facility] Body temperature 2023-05-01 16:33:00 36.44 Lien [facility] Body weight 2023-05-01 16:33:00 90.719 kg [facility] BMI 2023-05-01 16:33:00 34.33 kg/m2 [facility] Systolic blood pressure 2023-01-14 02:37:00 133 mm[Hg] [facility] Diastolic blood pressure 2023-01-14 02:37:00 65 mm[Hg] [facility] Heart rate 2023-01-14 02:37:00 89 /min [facility] Body temperature 2023-01-14 02:37:00 37.44 Lien [facility] Respiratory rate 2023-01-14 02:37:00 18 /min [facility] Body height 2023-01-14 02:37:00 162.6 cm [facility] Body weight 2023-01-14 02:37:00 90.719 kg [facility] BMI 2023-01-14 02:37:00 34.33 kg/m2 [facility] Oxygen saturation in Arterial blood by Pulse oximetry 2023-01-14 02:37:00 96 /min [facility] Systolic blood pressure 2020-09-12 23:45:00 128 mm[Hg] [facility] Diastolic blood pressure 2020-09-12 23:45:00 66 mm[Hg] [facility] Heart rate 2020-09-12 23:45:00 97 /min [facility] Body temperature 2020-09-12 23:45:00 36.61 Lien [facility] Respiratory rate 2020-09-12 21:30:00 18 /min [facility] Oxygen saturation in Arterial blood by Pulse oximetry 2020-09-12 21:30:00 92 /min [facility] Body height 2020-09-12 20:00:00 162.6 cm [facility] Body weight 2020-09-12 20:00:00 90.719 kg [facility] BMI 2020-09-12 20:00:00 34.33 kg/m2 [facility] Systolic blood pressure 2020-09-12 23:45:00 128 mm[Hg] [facility] Diastolic blood pressure 2020-09-12 23:45:00 66 mm[Hg] [facility] Heart rate 2020-09-12 23:45:00 97 /min [facility] Body temperature 2020-09-12 23:45:00 36.61 Lien [facility] Respiratory rate 2020-09-12 21:30:00 18 /min [facility] Oxygen saturation in Arterial blood by Pulse oximetry 2020-09-12 21:30:00 92 /min [facility] Body height 2020-09-12 20:00:00 162.6 cm [facility] [facility] Body weight 2020-09-12 20:00:00 90.719 kg [facility] BMI 2020-09-12 20:00:00 34.33 kg/m2 [facility] Heart rate 2020-09-11 00:51:00 82 /min [facility] Oxygen saturation in Arterial blood by Pulse oximetry 2020-09-11 00:51:00 98 /min [facility] Systolic blood pressure 2020-09-11 00:30:00 91 mm[Hg] [facility] Diastolic blood pressure 2020-09-11 00:30:00 73 mm[Hg] [facility] Body temperature 2020-09-10 23:46:00 36.5 Lien [facility] Respiratory rate 2020-09-10 23:46:00 18 /min [facility] Body height 2020-09-10 23:46:00 162.6 cm [facility] Body weight 2020-09-10 23:46:00 90.992 kg [facility] BMI 2020-09-10 23:46:00 34.43 kg/m2 [facility] Systolic blood pressure 2020-09-10 22:35:00 133 mm[Hg] [facility] Diastolic blood pressure 2020-09-10 22:35:00 72 mm[Hg] [facility] Heart rate 2020-09-10 22:27:00 104 /min [facility] Body temperature 2020-09-10 22:27:00 36.72 Lien [facility] Respiratory rate 2020-09-10 22:27:00 18 /min [facility] Body height 2020-09-10 22:27:00 162.6 cm [facility] Body weight 2020-09-10 22:27:00 90.992 kg [facility] BMI 2020-09-10 22:27:00 34.43 kg/m2 [facility] Height/Length Measured 2021-11-19 12:39:49 162.56 [...] Systolic blood pressure 2020-03-15 13:32:00 129 mm[Hg] [facility] Diastolic blood pressure 2020-03-15 13:32:00 71 mm[Hg] [facility] Heart rate 2020-03-15 13:32:00 85 /min [facility] Body temperature 2020-03-15 13:32:00 36.78 Lien [facility] Respiratory rate 2020-03-15 13:32:00 18 /min [facility] Body height 2020-03-15 13:32:00 162.6 cm [facility] Body weight 2020-03-15 13:32:00 78.926 kg [facility] BMI 2020-03-15 13:32:00 29.87 kg/m2 [facility] Systolic blood pressure 2020-03-07 01:00:00 114 mm[Hg] [facility] Diastolic blood pressure 2020-03-07 01:00:00 55 mm[Hg] [facility] Heart rate 2020-03-07 01:00:00 99 /min [facility] Body temperature 2020-03-07 01:00:00 36.67 Lien [facility] Respiratory rate 2020-03-07 01:00:00 20 /min [facility] Oxygen saturation in Arterial blood by Pulse oximetry 2020-03-07 01:00:00 98 /min [facility] Body weight 2020-03-06 23:00:00 68.04 kg [facility] BMI 2020-03-06 23:00:00 25.75 kg/m2 [facility] Body height 2020-03-06 22:57:00 162.6 cm [facility] Systolic blood pressure 2019-06-23 02:08:00 146 mm[Hg] [facility] Diastolic blood pressure 2019-06-23 02:08:00 89 mm[Hg] [facility] Heart rate 2019-06-23 02:08:00 130 /min made aware [facility] Body temperature 2019-06-23 02:08:00 36.72 Lien [facility] Respiratory rate 2019-06-23 02:08:00 18 /min [facility] Oxygen saturation in Arterial blood by Pulse oximetry 2019-06-23 02:08:00 95 /min [facility] Body weight 2019-06-23 00:05:00 68.04 kg [facility] BMI 2019-06-23 00:05:00 25.75 kg/m2 [facility] Systolic blood pressure 2019-06-10 19:43:00 117 mm[Hg] [facility] Diastolic blood pressure 2019-06-10 19:43:00 66 mm[Hg] [facility] Heart rate 2019-06-10 19:43:00 110 /min [facility] Body temperature 2019-06-10 19:43:00 37.06 Lien [facility] Respiratory rate 2019-06-10 19:43:00 18 /min [facility] Body weight 2019-06-10 19:43:00 63.504 kg [facility] BMI 2019-06-10 19:43:00 24.03 kg/m2 [facility] Oxygen saturation in Arterial blood by Pulse oximetry 2019-06-10 19:43:00 97 /min [facility] BP Systolic 2025-02-22 14:26:00 136 mm[Hg] Freddy Castillo BP Diastolic 2025-02-22 14:26:00 77 mm[Hg] Freddy Castillo Weight Measured 2025-02-22 14:26:00 160.40 pounds Freddy Castillo Height Measured 2025-02-22 14:26:00 64.00 inches Freddy Castillo Body Temperature 2025-02-22 14:26:00 97.60 degrees Freddy Castillo Heart Rate 2025-02-22 14:26:00 100.00 /min Freddy Castillo Respiratory Rate 2025-02-22 14:26:00 18.00 /min Freddy F Jonathan Body Temperature 2025-02-10 10:45:00 98.30 degrees Freddy F Jonathan Heart Rate 2025-02-10 10:45:00 84.00 /min Freddy F Jonathan Respiratory Rate 2025-02-10 10:45:00 18.00 /min Freddy F Jonathan BP Systolic 2025-02-10 10:45:00 131 mm[Hg] Freddy F Jonathan BP Diastolic 2025-02-10 10:45:00 81 mm[Hg] Freddy F Jonathan Weight Measured 2025-02-10 10:45:00 159.20 pounds Freddy F Jonathan Height Measured 2025-02-10 10:45:00 64.00 inches Freddy F Jonathan BP Systolic 2021-06-03 08:22:00 144 mm[Hg] Freddy F Jonathan BP Diastolic 2021-06-03 08:22:00 83 mm[Hg] Freddy F Jonathan Weight Measured 2021-06-03 08:22:00 210.00 pounds Freddy F Jonathan Height Measured 2021-06-03 08:22:00 64.00 inches Freddy F Jonathan Body Temperature 2021-06-03 08:22:00 98.20 degrees Freddy F Jonathan Heart Rate 2021-06-03 08:22:00 82.00 /min Freddy F Jonathan Respiratory Rate 2021-06-03 08:22:00 17.00 /min Freddy F Jonathan Heart Rate 2021-05-28 11:19:00 84.00 /min Freddy F Jonathan Respiratory Rate 2021-05-28 11:19:00 Freddy F Jonathan BP Systolic 2021-05-28 11:19:00 118 mm[Hg] Freddy F Jonathan BP Diastolic 2021-05-28 11:19:00 78 mm[Hg] Freddy F Jonathan Weight Measured 2021-05-28 11:19:00 205.00 pounds Freddy F Jonathan Height Measured 2021-05-28 11:19:00 64.00 inches Freddy F Jonathan Body Temperature 2021-05-28 11:19:00 98.20 degrees Freddy F Jonathan BP Systolic 2017-12-18 11:50:00 121 mm[Hg] Freddy F Jonathan BP Diastolic 2017-12-18 11:50:00 85 mm[Hg] Freddy Castillo Weight Measured 2017-12-18 11:50:00 150.60 pounds Freddy Castillo Height Measured 2017-12-18 11:50:00 63.00 inches Freddy Castillo Body Temperature 2017-12-18 11:50:00 98.00 degrees Freddy Castillo Heart Rate 2017-12-18 11:50:00 84.00 /min Freddy Castillo Respiratory Rate 2017-12-18 11:50:00 16.00 /min Freddy Castillo Procedures Procedure Date / Time Performed Performing Clinician Source URINALYSIS 2025-04-03 02:26:00 Lucio Box [facility] CREATINE KINASE 2025-04-03 00:37:00 Lucio Box [facility] COMP. METABOLIC PANEL ([id number]) 2025-04-03 00:37:00 Lucio Box [facility] SALICYLATE 2025-04-03 00:37:00 Lucio Box [facility] ETHANOL 2025-04-03 00:37:00 Lucio Box [facility] CBC WITH DIFF 2025-04-03 00:37:00 [facility]/B RSV COVID NAAT 2025-04-03 00:37:00 Lucoi Box [facility] URINE DRUG (IMMUNOASSAY) - COMPREHENSIVE DRUG SCREEN W/O REFLEX 2025-04-03 00:37:00 Lucio Box [facility] FENTANYL (IMMUNOASSAY) 2025-04-03 00:37:00 Yaniv Box [facility] THYROID STIMULATING HORMONE 2025-04-01 04:38:00 Argelia Isidro [facility] COMP. METABOLIC PANEL ([id number]) 2025-04-01 04:38:00 Argelia Isidro [facility] SALICYLATE 2025-04-01 04:38:00 Argelia Isidro [facility] ETHANOL 2025-04-01 04:38:00 Argelia Isidro [facility] CBC WITH DIFF 2025-04-01 04:38:00 Argelia Isidro [facility] URINALYSIS 2025-04-01 04:38:00 Argelia Isidro [facility] INFLUENZA A/B RSV COVID NAAT 2025-04-01 04:38:00 Argelia Isidro [facility] URINE DRUG (IMMUNOASSAY) - COMPREHENSIVE DRUG SCREEN W/O REFLEX 2025-04-01 04:38:00 Argelia Isidro [facility] FENTANYL (IMMUNOASSAY) 2025-04-01 04:38:00 Rose Isidro ala [facility] HIV 1/2 AG-AB WITH REFLEX 2025-03-07 19:40:00 Della Mckenna [facility] PAP SMEAR-LIQUID BASED-CP 2025-03-07 19:40:00 [facility] SYPHILIS IGG/IGM 2025-03-07 19:40:00 Della Mckenna [facility] GC & CHLAMYDIA AMPLIFIED ASSAY 2025-03-07 19:40:00 Della Mckenna [facility] HIGH RISK HPV-THIN PREP 2025-03-07 19:40:00 Yoshi Mckenna [facility] EKG-12 LEAD 2024-04-15 18:47:21 Mari Herndon [facility] POCT TEST 2024-04-15 17:03:00 Mari Herndon [facility] CREATINE KINASE 2024-04-15 17:02:00 [facility] TROPONIN I 2024-04-15 17:02:00 Mari Herndon [facility] COMP. METABOLIC PANEL ([id number]) 2024-04-15 17:02:00 Mari Herndon [facility] ETHANOL 2024-04-15 17:02:00 Mari Herndon [facility] URINE DRUG (IMMUNOASSAY) - COMPREHENSIVE DRUG SCREEN 2024-04-15 17:02:00 Mari Herndon [facility] CBC WITH DIFF 2024-04-15 17:02:00 Mari Herndon [facility] URINALYSIS 2024-04-15 17:02:00 Mari Herndon [facility] URINALYSIS 2023-05-01 17:17:00 Sepideh Palmer Un [facility] POCT TEST 2023-05-01 17:17:00 Latasha Palmer ra [facility] CREATINE KINASE 2023-05-01 16:44:00 Sepideh Palmer [facility] COMP. METABOLIC PANEL ([id number]) 2023-05-01 16:44:00 Sepideh Palmer [facility] CBC WITH DIFF 2023-05-01 16:44:00 Sepideh Palmer [facility] AUTHORIZATION FOR RELEASE OF PHI 2022-03-05 05:01:00 Doctor Unassigned, [place] [facility] [id number] 2020-09-13 00:00:00 [facility] ADC / LCC - DRUG SCREEN TRIAGE 2020-09-12 22:07:00 Gage Reid [facility] MAGNESIUM 2020-09-12 21:06:00 Gage Reid [facility] COMP. METABOLIC PANEL ([id number]) 2020-09-12 21:06:00 Gage Reid [facility] CBC WITH DIFF 2020-09-12 21:06:[address] [facility] ECHO ROUTINE W/DOPPLER COLOR 2020-09-12 20:43:53 Talib Rivera [facility] CONSENT/REFUSAL FOR DIAGNOSIS AND TREATMENT 2020-09-12 19:55:29 Doctor Unassigned, [place] [facility] ASSIGNMENT OF BENEFITS 2020-09-12 19:39:54 Docto r Unassigned, [place] [facility] CBC WITH DIFF 2020-09-11 00:30:[address] [facility] COVID-19 (ID NOW RAPID TESTING) 2020-09-11 00:15:00 Gage Reid [facility] CONSENT/REFUSAL FOR DIAGNOSIS AND TREATMENT 2020-09-10 23:34:19 Doctor Unassigned, [place] [facility] ASSIGNMENT OF BENEFITS 2020-09-10 23:33:44 Docto r Unassigned, [place] [facility] GROUP B STREPTOCOCCUS BY PCR 2020-09-10 22:45:00 Gage Reid [facility] L&D VISIT (NON-DELIVERED) 2020-09-10 06:01:00 Doctor Unassigned, [place] [facility] EXTERNAL PROVIDER RECORDS 2020-04-18 05:01:00 Doctor Unassigned, [place] [facility] ADC / LCC - DRUG SCREEN TRIAGE 2020-03-15 14:26:00 Gage Reid [facility] ASSIGNMENT OF BENEFITS 2020-03-15 13:18:47 Docto r Unassigned, [place] [facility] POCT URINALYSIS W/O SPECIFIC GRAVITY 2020-03-15 00:00:00 Gage Reid [facility] POCT TEST 2020-03-07 00:38:00 Edson Delacruz [facility] MAGNESIUM 2020-03-06 23:24:[address] [facility] COMP. METABOLIC PANEL ([id number]) 2020-03-06 23:24:00 Edson Delacruz [facility] SALICYLATE 2020-03-06 23:24:[address] [facility] ETHANOL 2020-03-06 23:24:[address] [facility] CBC WITH DIFFERENTIAL 2020-03-06 23:24:00 Edson Delacruz ige [facility] URINALYSIS 2020-03-06 23:21:[address] [facility] ADC / LCC - DRUG SCREEN TRIAGE 2020-03-06 23:21:00 Edson Delacruz [facility] EKG-12 LEAD 2020-03-06 23:04:[address] [facility] NOTICE OF PRIVACY PRACTICES 2019-06-10 19:40:45 Doctor Unassigned, [place] [facility] CONSENT/REFUSAL FOR DIAGNOSIS AND TREATMENT 2019-06-10 19:34:31 Doctor Unassigned, [place] [facility] Encounters Start Date/Time End Date/Time Encounter Type Admission Type Attending Clinicians Care Facility Care Department Encounter ID Source 2021-08-31 04:56:11 Outpatient P [facility] R[facility] [id number] [facility] 2021-08-31 04:16:00 Outpatient P [facility] R[facility] [id number] [facility] 2021-08-31 04:15:[address] [facility] RACHEL [id number] [facility] 2020-09-13 22:39:00 Inpatient Sherman Fabian [facility] [id number] [facility] 2020-07-25 10:46:00 Inpatient Rj Diez [facility] PSY [id number] [facility] 2025-06-06 14:15:00 2025-06-06 14:15:00 Outpatient DELLA MURRAY [facility] [id number] [facility] 2025-04-02 19:26:00 2025-04-03 06:50:00 Emergency X MIGUEL A NATH, MIGUEL A [facility] ERT [id number] [facility] 2025-03-31 22:59:00 2025-04-01 01:03:00 Emergency X Argelia Isidro [facility] AT [facility] 1.2.840.114 350.1.13.10 4.2.7.2.686 [id number] [facility] 2025-03-22 07:18:11 2025-03-22 23:59:00 Hospital Encounter DELLA MURRAY [facility] [place] 1.2.840.114 350.1.13.10 4.2.7.2.686 [id number] [facility] 2025-03-22 08:20:26 2025-03-22 08:20:26 Outpatient [facility] [id number] Freddy Castillo 2025-03-16 08:30:00 2025-03-16 08:30:00 Outpatient DELLA MURRAY [facility] [id number] [facility] 2025-03-16 08:30:00 2025-03-16 08:30:00 Outpatient DELLA MURRAY [facility] [id number] [facility] 2025-03-13 00:00:00 2025-03-13 15:52:56 Telephone Delal Mckenna [facility] DISH [facility]ILD [facility] 1.2.840.114 350.1.13.10 4.2.7.2.686 [id number] [facility] 2025-03-09 09:45:00 2025-03-09 09:56:21 Outpatient R DELLA MCKENNA [facility] [id number] [facility] 2025-03-09 09:45:00 2025-03-09 09:56:21 Office Visit Della Mckenna [facility] DISH [facility] CHILD [facility] 1.2.840.114 350.1.13.10 4.2.7.2.686 [id number] [facility] 2025-03-09 09:45:00 2025-03-09 09:45:00 Outpatient R DELLA MCKENNA [facility] [id number] [facility] 2025-03-07 13:45:00 2025-03-07 14:43:51 Outpatient R DELLA MCKENNA [facility] [id number] [facility] 2025-03-07 13:45:00 2025-03-07 14:43:51 Office Visit Della Mckenna [facility] DISH [facility] CHILD [facility] 1.2.840.114 350.1.13.10 4.2.7.2.686 [id number] [facility] 2025-03-03 10:00:00 2025-03-03 10:00:00 Outpatient R BALADELLA [facility] [id number] [facility] 2025-02-22 14:19:25 2025-02-22 14:19:25 Outpatient [facility] [id number] Freddy Castillo 2025-02-22 00:00:00 2025-02-22 00:00:00 Outpatient Visit [facility] [id number] Freddy Castillo 2025-02-10 10:50:43 2025-02-10 10:50:43 Outpatient [facility] [id number] Freddy Castillo 2025-02-10 00:00:00 2025-02-10 00:00:00 Outpatient Visit [facility] [id number] Freddy Castillo 2025-02-07 10:09:33 2025-02-07 10:09:33 Outpatient [facility] [address] [id number] Freddy [place] 2025-02-01 08:19:54 2025-02-01 08:19:54 Outpatient [facility] [address] [id number] Freddy Hoover [place] 2024-12-28 12:15:00 2024-12-28 12:15:00 Outpatient R WILLIAM TOVAR [facility] [id number] [facility] 2024-05-26 11:08:15 2024-05-26 23:59:00 Outpatient R BILLIE HUDSON [facility] [id number] [facility] 2024-05-26 11:08:15 2024-05-26 23:59:00 Hospital Encounter Mica Billie [facility] 1.2.840.114 350.1.13.10 4.2.7.2.686 [id number] [facility] 2024-05-26 11:15:00 2024-05-26 12:18:57 Office Visit Billie Hudson Oswaldo Macie [facility] 1.2.840.114 350.1.13.10 4.2.7.2.686 [id number] [facility] 2024-04-15 11:33:00 2024-04-15 14:00:00 Emergency X MARI HERNDON [facility] ERT [id number] [facility] 2024-04-15 11:33:00 2024-04-15 14:00:00 Emergency Mari Herndon [facility] 1.2.840.114 350.1.13.10 4.2.7.2.686 [id number] [facility] 2024-04-09 09:29:00 2024-04-09 10:43:00 Emergency X BARBARA BRIGITTE [facility] ERT [id number] [facility] 2024-04-09 09:29:00 2024-04-09 10:43:00 Emergency Brigitte Jimenez [facility] 1.2.840.114 350.1.13.10 4.2.7.2.686 [id number] [facility] 2023-11-14 00:00:00 2023-11-14 00:00:00 Nurse Triage Kurt Spannndy [facility] 1.2.840.114 350.1.13.10 4.2.7.2.686 [id number] [facility] 2023-08-05 15:00:00 2023-08-05 15:00:00 Outpatient JYOTI HOANG [facility] [id number] [facility] 2023-05-01 11:30:00 2023-05-01 14:17:00 Emergency X SEPIDEH PALMER [facility] ERT [id number] [facility] 2023-05-01 11:30:00 2023-05-01 14:17:00 Emergency Sepideh Palmer [facility] 1.2.840.114 350.1.13.10 4.2.7.2.686 [id number] [facility] 2023-01-13 21:42:00 2023-01-13 22:24:00 Emergency X MIGUEL A NATH [facility] ERT [id number] [facility] 2023-01-13 21:42:00 2023-01-13 22:24:00 Emergency Miguel A Nath [facility] 1.2840.114 350.1.13.10 4.2.7.2.686 [id number] [facility] 2022-03-05 00:00:00 2022-03-05 00:00:00 Orders Only Doctor Unassigned, [place] [facility] 1.2840.114 350.1.13.10 4.2.7.2.686 [id number] [facility] 2021-09-23 15:00:00 2021-09-23 15:00:00 Outpatient R GAGE REID [facility] [id number] [facility] 2021-08-21 09:30:00 2021-08-21 09:30:00 Outpatient R GAGE REID [facility] [id number] [facility] 2020-09-12 13:34:00 2020-09-12 18:35:00 Hospital Encounter Gage Reid [facility] 1.2840.114 350.1.13.10 4.2.7.2.686 [id number] 2020-09-12 13:34:00 2020-09-12 18:35:00 Hospital Encounter Gage Reid [facility] 1.2840.114 350.1.13.10 4.2.7.2.686 [id number] [facility] 2020-09-12 09:45:00 2020-09-12 09:45:00 Outpatient R GAGE REID [facility] [id number] [facility] 2020-09-11 15:45:00 2020-09-11 15:45:00 Outpatient R GAGE REID [facility] [id number] [facility] 2020-09-11 00:00:00 2020-09-11 00:00:00 Telephone Gage Reid [facility] 1.2840.114 350.1.13.10 4.2.7.2.686 [id number] 2020-09-11 00:00:00 2020-09-11 00:00:00 [facility] 1.2.840.114 350.1.13.10 4.2.7.2.686 [id number] [facility] 2020-09-11 00:00:00 2020-09-11 00:00:00 Case Management Gage Reid [facility] Building 1.2.840.114 350.1.13.10 4.2.7.2.686 [id number] [facility] 2020-09-10 17:30:00 2020-09-10 19:10:00 Hospital Encounter Gage Reid [facility] 1.2.840.114 350.1.13.10 4.2.7.2.686 [id number] [facility] 2020-09-10 16:09:56 2020-09-10 17:20:04 Routine Visit Gage Reid [facility] Building 1.2.840.114 350.1.13.10 4.2.7.2.686 [id number] [facility] 2020-09-10 16:00:00 2020-09-10 16:00:00 Outpatient R JEANETTEGAGE [facility] [id number] [facility] 2020-09-03 13:00:00 2020-09-03 13:00:00 Outpatient R [facility] REID [facility] [id number] [facility] 2020-08-31 08:30:00 2020-08-31 08:30:00 Outpatient R JYOTI PAGAN [facility] [id number] [facility] 2020-08-21 10:30:00 2020-08-21 10:30:00 Outpatient R LATASHA [facility] [id number] [facility] 2020-08-14 10:30:00 2020-08-14 10:30:00 Outpatient R JYOTI PAGAN [facility] [id number] [facility] 2020-08-13 11:00:00 2020-08-13 11:00:00 Outpatient GAGE ISABEL [facility] [id number] [facility] 2020-07-25 10:07:00 2020-08-02 13:01:00 Inpatient 1 Rj Diez Thomas [facility] [id number] [facility] 2020-07-20 08:30:00 2020-07-20 08:30:00 Outpatient R JYOTI PAGAN [facility] [id number] [facility] 2020-07-17 13:30:00 2020-07-17 13:30:00 Outpatient R LATASHA [facility] [id number] [facility] 2020-07-12 14:30:00 2020-07-12 14:30:00 Outpatient R [facility] [id number] [facility] 2020-06-19 14:30:00 2020-06-19 14:30:00 Outpatient R [facility] [id number] [facility] 2020-04-30 08:45:00 2020-04-30 08:45:00 Outpatient R [facility] [id number] [facility] 2020-04-26 10:31:59 2020-04-26 11:51:31 Percussion Teacher Visit Ultrasound, Cheikh Dee [facility] 1.2.840.114 350.1.13.10 4.2.7.2.686 [id number] [facility] 2020-04-26 10:15:00 2020-04-26 10:15:00 Outpatient P [facility] [id number] [facility] 2020-04-26 00:00:00 2020-04-26 00:00:00 Letter (Out) Doctor Unassigned, [place] [facility] 1.114 350.1.13.10 4.2.7.2.686 [id number] [facility] 2020-04-20 15:00:00 2020-04-20 15:00:00 Outpatient R [facility] [id number] [facility] 2020-04-20 08:18:30 2020-04-20 08:33:30 Telemedici ne Visit Fellow, [facility] Morro Savage [facility] 1.114 350.1.13.10 4.2.7.2.686 [id number] [facility] 2020-04-18 00:00:00 2020-04-18 00:00:00 Orders Only Doctor Unassigned, [place] [facility] 1.114 350.1.13.10 4.2.7.2.686 [id number] [facility] 2020-04-12 08:45:00 2020-04-12 08:45:00 Outpatient R [facility] [id number] [facility] 2020-04-06 08:00:00 2020-04-06 08:30:00 Telemedici ne Visit Fellow, [facility] Olga Lidia Corral [facility] 1.114 350.1.13.10 4.2.7.2.686 [id number] [facility] 2020-04-06 08:00:00 2020-04-06 08:00:00 Outpatient R [facility] [id number] [facility] 2020-03-30 00:00:00 2020-03-30 00:00:00 Case Management Sanjana Sierra [facility] 1.114 350.1.13.10 4.2.7.2.686 [id number] [facility] 2020-03-20 00:00:00 2020-03-20 00:00:00 Refill [facility] 1.2.840.114 350.1.13.10 4.2.7.2.686 [id number] [facility] ity [facility] 2020-03-15 08:20:24 2020-03-15 09:19:11 Initial Visit G[facility] 1.2.840.114 350.1.13.10 4.2.7.2.[id number] [facility] 2020-03-15 08:00:00 2020-03-15 08:00:00 Outpatient R [facility] [id number] [facility] 2020-03-15 00:00:00 2020-03-15 00:00:00 Orders Only Doctor Unassigned, [place] [facility] 1.2.840.114 350.1.13.10 4.2.7.2.686 [id number] [facility] 2020-03-15 00:00:00 2020-03-15 00:00:00 Telephone Gage [facility] 1.2.840.114 350.1.13.10 4.2.7.2.686 [id number] [facility] ity [facility] 2020-03-06 17:55:54 2020-03-06 22:34:00 Emergency Edson Delacruz [facility] 1.2.840.114 350.1.13.10 4.2.7.2.686 [id number] [facility] ity [facility] 2020-03-06 17:55:54 2020-03-06 17:55:54 Emergency X Edson DELACRUZ [facility] ERT [id number] [facility] ity [facility] 2020-02-01 00:00:00 2020-02-01 00:00:00 Telephone Faculty, Hood Yepez [facility] 1.2.840.114 350.1.13.10 4.2.7.2.686 [id number] [facility] 2019-06-22 19:07:21 2019-06-22 21:13:00 Emergency [facility] 1.2.840.114 350.1.13.10 4.2.7.2.686 [id number] [facility] 2019-06-10 14:44:46 2019-06-10 15:34:00 Emergency Sepideh Palmer [facility] 1.2.840.114 350.1.13.10 4.2.7.2.686 [id number] [facility] 2019-06-10 00:00:00 2019-06-10 00:00:00 Orders Only Doctor Unassigned, [place] [facility] 1.2.840.114 350.1.13.10 4.2.7.2.686 [id number] [facility] Results Test Description Test Time Test Comments Results Result Co mments Source [facility]2 AG-AB WITH [id number] 04:36:05* Test Item Value Reference Range Interpretation Comme [facility] HIV Semi-quantitative (test code = 25878-2) 0.14 Negative YAMIL (test code = YAMIL) Non-reactive for HIV-1 antigen and HIV-1/HIV-2 antibodies. ?No laboratory evidence of HIV infection. ?Repeat in 2-4 weeks if acute HIV infection is suspected. [facility] CenterTroponin [id number] 17:38:16* Test Item Value Reference Range Interpretation Comme nts TROPONIN I (test code = 8570927417) 0.005 ng/mL <=0.034 YAMIL (test code = YAMIL) Reference (Normal) Range (defined by the 99th percentile reference limit): <= 0.034 ng/mL Note: Cardiac troponin begins to rise 3-4 hours after the onset of ischemia. Repeat in 4-6 hours if the sample was drawn within 3-4 hours of the onset of the symptom and found normal. Diagnosis of myocardial injury is made with acute changes in cTn concentrations with at least one serial sample above the 99th percentile upper reference limit (URL), taken together with the patient's clinical presentation. Biotin has been reported to cause a negative bias, interpret results relative to patient's use of biotin. Lab Interpretation (test code = 55923-8) Normal [facility] CenterEthanol2024-06-14 17:29:51 ALCOHOL<10mg/dL04/15/2024 12:[address] [facility]<10 Wfmemdhr81-846 Toxic>100 Depression of YARD SPOTTER>400 Fatalities ReportedMichael E. DeB[facility]y [facility] Medical CenterCom. Metabolic Panel (71564)2024-04-15 17:27:38* Test Item Value Reference Range Interpretation Comme nts NA (test code = 6158995353) 140 mmol/L 135-145 K (test code = 2116921297) 3.4 mmol/L 3.5-5.0 L CL (test code = 2795306648) 104 mmol/L 98-108 CO2 TOTAL (test code = 7446970531) 31 mmol/L 23-31 AGAP (test code = 6014978451) 5 2-16 BUN (test code = 3829316592) 10 mg/dL 7-23 GLUCOSE (test code = 4896316502) 90 mg/dL 70-110 CREATININE (test code = 2160-0) 0.77 mg/dL 0.50-1.04 TOTAL BILI (test code = 6479092136) 0.4 mg/dL 0.1-1.1 CALCIUM (test code = 8715153079) 9.4 mg/dL 8.6-10.6 T PROTEIN (test code = 3014547675) 6.9 g/dL 6.3-8.2 ALBUMIN (test code = 9969414752) 3.9 g/dL 3.5-5.0 ALK PHOS (test code = 8588927104) 89 U/L 34-122 ALTv (test code = 1742-6) 18 U/L 5-35 AST(SGOT) (test code = 4199510735) 27 U/L 13-40 eGFR (test code = 16903-5) 98.9 mL/min/1.73m2 CKD-EPI eGFR (2020). Assuming creatinine has been stable day-to-day for at least three months, the eGFR indicates Category G1 (>= 90 mL/min/1.73 m2) Lab Interpretation (test code = 50464-0) Abnormal [facility] CenterCreatine [id number] 17:27:38* Test Item Value Reference Range Interpretation Comme nts CK (test code = 0042971828) 69 U/L 33-194 Lab Interpretation (test cod e = 28195-0) Normal [facility] CenterCbc with [id number] 17:12:33* Test Item Value Reference Range Interpretation [...] 32.5 g/dL 31.6-35.1 RDW-SD (test code = 91355-7) 47.8 fL 39.0-49.9 RDW-CV (test code = 788-0) 14.0 % 12.0-15.5 PLT (test code = 777-3) 361 166-358 H MPV (test code = 07776-5) 9.6 fL 9.5-12.9 NRBC/100 WBC (test code = 9234837905) 0.0 0.0-10.0 NRBC x10^3 (test code = 3598121880) See_Comment [Automated messa ge] The system which generated this result transmitted reference range: 10*3/?L. The reference range was not used to interpret this result as normal/abnormal. GRAN MAT (NEUT) % (test code = 770-8) 61.2 % IMM GRAN % (test code = 9702096676) 0.20 % LYMPH % (test code = 736-9) 29.5 % MONO % (test code = 5905-5) 6.9 % EOS % (test code = 713-8) 1.7 % BASO % (test code = 706-2) 0.5 % GRAN MAT x10^3(ANC) (test code = 8604051052) 5.16 10*3/uL 1.88-7.09 IMM GRAN x10^3 (test code = 6154158493) 0.00-0.06 LYMPH x10^3 (test code = 731-0) 2.49 10*3/uL 1.32-3.29 MONO x10^3 (test code = 742-7) 0.58 10*3/uL 0.33-0.92 EOS x10^3 (test code = 711-2) 0.14 10*3/uL 0.03-0.39 BASO x10^3 (test code = 704-7) 0.04 10*3/uL 0.01-0.07 Lab Interpretation (test code = 75499-9) Abnormal [facility] [id number] 17:03:00* Test Item Value Reference Range Interpretation Comme nts POCT PREG (test code = 1605) Negative On board controls acceptable with C Line (test code = 3574) Yes POCT PREG LOT # (test code = 3575) [id number] POCT PREG TEST DATE ( test code = 3576) 2025-03-05 Lab Interpretation (test cod e = 09490-3) Normal [facility] [id number] 17:17:00* Test Item Value Reference Range Interpretation Comme nts POCT PREG (test code = 1605) Negative On board controls acceptable with C Line (test code = 3574) Yes POCT PREG LOT # (test code = 3575) HCG [id number] POCT PREG TEST DATE (test code = 3576) 08/07/2024 Lab Interpretation (test cod e = 56446-6) Normal [facility] TEST, THINPREP, [id number] 00:00:00 * Test Item Value Reference Range Interpretation Comme nts SOURCE: (test code = 8001) Cervical/Endo cervi bertha SLIDES: (test code = 8011) 1 LMP: (test code = 8021) 11/14/2020 SPECIMEN ADEQUACY: (test code = 46012) (NOTE) INTERPRETATION: (test code = 31189) LSIL/EPITH. ABNORMALITY; SEE BELOW OTHER COMMENTS: (test code = 8081) (NOTE) STEREO COMPILER: (test code = 8101) MIGUEL ANEGL David(ASCP)IAC PATHOLOGIST INTERPRETATION BY: (test code = 8122) Stanford Lobo LOCATION: (test code = 93273) (NOTE) CPT: (test code = 8140) (NOTE) Freddy Hoover AustinVAGINAL PATHOGENS DNA [id number] 00:00:00* Test Item Value Reference Range Interpretation Comme nts ALDA SPECIES (test code = 18793) NEGATIVE G. VAGINALIS (test code = 80651) POSITIVE T. VAGINALIS (test code = 35766) NEGATIVE Freddy Hoover AustinVAGINAL PATHOGENS DNA [id number] 00:00:00* Test Item Value Reference Range Interpretation Comme nts ALDA SPECIES (test code = 47781) NEGATIVE G. VAGINALIS (test code = 92974) POSITIVE T. VAGINALIS (test code = 52939) NEGATIVE Freddy Hoover JonathanPAP TEST, THINPREP, [id number] 00:00:00* Test Item Value Reference Range Interpretation Comme nts SOURCE: (test code = 8001) Cervical/Endo cervi bertha SLIDES: (test code = 8011) 1 LMP: (test code = 8021) 11/14/2020 SPECIMEN ADEQUACY: (test code = 22132) (NOTE) INTERPRETATION: (test code = 73754) LSIL/EPITH. ABNORMALITY; SEE BELOW OTHER COMMENTS: (test code = 8081) (NOTE) STEREO COMPILER: (test code = 8101) MIGUEL ANGEL David(ASCP)[facility] PATHOLOGIST INTERPRETATION BY: (test code = 8122) Stanford Lobo LOCATION: (test code = 49127) (NOTE) CPT: (test code = 8140) (NOTE) Freddy Sneha AustinHPV HIGH RISK WITH GENOTYPE, [id number] 00:00:00* Test Item Value Reference Range Interpretation Comme nts HPV HIGH RISK INTERP (test c ode = 67035) POSITIVE HPV 16 (test code = 38659) NEGATIVE HPV 18 (test code = 92581) NEGATIVE HPV, HR, OTHER GENOTYPES (te st code = 68965) POSITIVE Freddy CastilloHPV HIGH RISK WITH GENOTYPE, [id number] 00:00:00* Test Item Value Reference Range Interpretation Comme nts HPV HIGH RISK INTERP (test c ode = 10470) POSITIVE HPV 16 (test code = 64484) NEGATIVE HPV 18 (test code = 72934) NEGATIVE HPV, HR, OTHER GENOTYPES (te st code = 48487) POSITIVE Freddy Hoover FdrxxlUYSM-QcB-6 (COVID-19) by RT-PCR (HIGH RISK)2020-12-30 00:00:00* Test Item Value Reference Range Interpretation Comme nts SARS-CoV-2 INTERPRETATION (test code = 29308) NEGATIVE SOURCE (test code = 42372) NASOPHARYNGEAL Freddy Hoover VnzvomEOED-YxJ-3 (COVID-19) by RT-PCR (HIGH RISK)2020-12-30 00:00:00* Test Item Value Reference Range Interpretation Comme nts SARS-CoV-2 INTERPRETATION (test code = 02284) NEGATIVE SOURCE (test code = 09811) NASOPHARYNGEAL Freddy CastilloCBC W/AUTO [id number] 07:10:00* Test Item Value Reference Range Interpretation [...] code = PLTMR) NORMAL NORMAL Comments to Work Counselor: TO BE COLLECTED BY LABRUBELLA [id number] 14:15:00* Test Item Value Reference Range Interpretation Comme nts RUBELLA SCREEN (test code = RUBSC) 73.8 IUnit/ml Results >10.0IUn its/ml are considered positive inaccordance with the CLSI guidelines and based on the WHO International Standard for Anti-Rubella serum as anindicator of immune status and a breakpoint to detect mostseropositive persons. Comments to Work Counselor: please use blood alreadyin the labB [id number] 07:26:00* Test Item Value Reference Range Interpretation Comme nts HEMOGLOBIN (test code = HGB) 10.9 g/dL 10.7-13.9 N HEMATOCRIT (test code = HCT) 34.6 % 32.1-42.1 N AG HEPATITIS B [id number] 04:56:00* Test Item Value Reference Range Interpretation Comme nts AG HEPATITIS B SURFACE (test code = HBSAG) NONREACTIVE NONREACTIVE IS CONSENT FORM SIGNED FOR HIV TESTING? YAB HEPATITIS C [id number] 04:56:00* Test Item Value Reference Range Interpretation Comme nts AB HEPATITIS C (test code = HCVAB) NONREACTIVE NONREACTIVE SIGNAL TO CUTOFF (test code = CUTOFF) 0.10 <0.80 N IS CONSENT FORM SIGNED FOR HIV TESTING? YAB [id number] 04:56:00* Test Item Value Reference Range Interpretation Comme nts AB TREPONEMA (test code = TREPAB) NONREACTIVE NONREACTIVE IS CONSENT FORM SIGNED FOR HIV TESTING? YAB HIV 1 04:56:00* Test Item Value Reference Range Interpretation Comme nts AB HIV 1 2 (test code = QPE01NI) NONREACTIVE IS CONSENT FORM SIGNED FOR HIV TESTING? YAG HEPATITIS B [id number] 04:56:00* Test Item Value Reference Range Interpretation Comme nts AG HEPATITIS B SURFACE (test code = HBSAG) NONREACTIVE NONREACTIVE IS CONSENT FORM SIGNED FOR HIV TESTING? YAB HEPATITIS C [id number] 04:56:00* Test Item Value Reference Range Interpretation Comme nts AB HEPATITIS C (test code = HCVAB) NONREACTIVE NONREACTIVE SIGNAL TO CUTOFF (test code = CUTOFF) 0.10 <0.80 N IS CONSENT FORM SIGNED FOR HIV TESTING? YAB [id number] 04:56:00* Test Item Value Reference Range Interpretation Comme nts AB TREPONEMA (test code = TREPAB) NONREACTIVE NONREACTIVE IS CONSENT FORM SIGNED FOR HIV TESTING? YAB HIV 1 04:56:00* Test Item Value Reference Range Interpretation Comme nts AB HIV 1 2 (test code = EBY02BS) NONREACTIVE NONREACTIVE Done by [employer] HIV Ag/Ab Combo Screen IS CONSENT FORM SIGNED FOR HIV TESTING? YAG HEPATITIS B [id number] 04:41:00* Test Item Value Reference Range Interpretation Comme nts AG HEPATITIS B SURFACE (test code = HBSAG) NONREACTIVE NONREACTIVE IS CONSENT FORM SIGNED FOR HIV TESTING? YAB HEPATITIS C [id number] 04:41:00* Test Item Value Reference Range Interpretation Comme nts AB HEPATITIS C (test code = HCVAB) NONREACTIVE SIGNAL TO CUTOFF (test code = CUTOFF) <0.80 IS CONSENT FORM SIGNED FOR HIV TESTING? YAB [id number] 04:41:00* Test Item Value Reference Range Interpretation Comme nts AB TREPONEMA (test code = TREPAB) NONREACTIVE NONREACTIVE IS CONSENT FORM SIGNED FOR HIV TESTING? YAB HIV 1 04:41:00* Test Item Value Reference Range Interpretation Comme nts AB HIV 1 2 (test code = SLP53FN) NONREACTIVE IS CONSENT FORM SIGNED FOR HIV TESTING? YCOMPREHENSIVE METABOLIC [id number] 02:39:00* Test Item Value Reference Range Interpretation [...] units/L 46-116 H COVID 19 Asymptomatic IH [id number] 00:09:00* Test Item Value Reference Range Interpretation [...] testsfor detection and/or diagnosis of COVID-19 under Mtkyvko751(b)(1) of the Act, 21 U.S.C. 360bbb-3(b)(1), unless theauthorization is terminated or revoked sooner. CBC W/AUTO [id number] 00:00:00* Test Item Value Reference Range Interpretation Comme nts WHITE BLOOD CELL (test code = WBC) 20.9 K/mm3 6.6-12.1 HH RESULTS CALLED Susanna narayan.READ BACK & CONFIRMED? yes.BY MeganLAB.MR 09/13/20 4086. RED BLOOD CELL (test code = RBC) [...] NORMAL ADC / LCC - DRUG SCREEN [id number] 22:29:00* Test Item Value Reference Range Interpretation Comme nts BENZO U (test code = 9899998068) Presumptive Positive Negative A ARNOLD U (test code = 3256242178) Negative Negative AMPHET (test code = 3922961568) Negative Negative THC (test code = 3927862664) Presumptive Positive Negative A Confirmation of Presumptive Positive THC result requires physician order. METHADONE (test code = 6458778202) Negative Negative Meth U (test code = 3863233548) Negative Negative OPIATES (test code = 3066102162) Presumptive Positive Negative A Cocaine Metabolite (test code = 1726158375) Negative Negative PROPOXY (test code = 0468214102) Negative Negative Tric U (test code = 5480612344) Negative Negative PCP (test code = 6811783778) Negative Negative OXYCOD (test code = 7873117118) Negative Negative YAMIL (test code = YAMIL) [...] legal testing). Lab Interpretation (test code = 50444-8) Abnormal [facility]. METABOLIC PANEL (38988)2020-09-12 21:50:00* Test Item Value Reference Range Interpretation Comme nts NA (test code = 8477222358) 133 mmol/L 135-145 L K (test code = 3044931682) 3.8 mmol/L 3.5-5 CL (test code = 2918757786) 106 mmol/L 98-108 CO2 TOTAL (test code = 8077363172) 23 mmol/L 23-31 AGAP (test code = 5102083014) 2-16 BUN (test code = 9482654203) 10 mg/dL 7-23 GLUCOSE (test code = 3849050252) 106 mg/dL 70-110 CREATININE (test code = 0205862859) 0.53 mg/dL 0.5-1.04 TOTAL BILI (test code = 1947093822) 0.3 mg/dL 0.1-1.1 CALCIUM (test code = 9399670736) 8.3 mg/dL 8.6-10.6 L T PROTEIN (test code = 7118374146) 6.0 g/dL 6.3-8.2 L ALBUMIN (test code = 3120720582) 3.1 g/dL 3.5-5 L ALK PHOS (test code = 5070143698) 185 U/L 34-122 H ALTv (test code = 1742-6) 15 U/L 5-35 AST(SGOT) (test code = 5193463211) 24 U/L 13-40 eGFR Calculation (Non-) (test code = 0276938120) mL/min/1.73m2 eGFR Calculation () (test code = 6281607094) mL/min/1.73m2 YAMIL (test code = YAMIL) Association [...] imaging tests). Lab Interpretation (test code = 93630-7) Abnormal [facility] Center[facility]NESIUM2020-11-11 21:50:00* Test Item Value Reference Range Interpretation Comme nts MAGNESIUM (test code = 0808655088) 1.8 mg/dL 1.7-2.4 Lab Interpretation (test cod e = 51290-0) Normal [facility] WITH [id number] 21:37:00* Test Item Value Reference Range Interpretation [...] 33.0 g/dL 31.6-35.1 RDW-SD (test code = 12075-5) 49.1 fL 39-49.9 RDW-CV (test code = 788-0) 14.3 % 12-15.5 PLT (test code = 777-3) See_Comment [Automated message] The system which generated this result transmitted reference range: 166 - 358 10*3/?L. The reference range was not used to interpret this result as normal/abnormal. MPV (test code = 44043-3) 10.0 fL 9.5-12.9 NRBC/100 WBC (test code = 2968562734) See_Comment [Automated message] The system which generated this result transmitted reference range: 0.0 - 10.0 /100 WBCs. The reference range was not used to interpret this result as normal/abnormal. NRBC x10^3 (test code = 0626800238) <0.01 See_Comment [Automated message] The system which generated this result transmitted reference range: 10*3/?L. The reference range was not used to interpret this result as normal/abnormal. GRAN MAT (NEUT) % (test code = 770-8) 77.1 % IMM GRAN % (test code = 6611793437) 1.00 % LYMPH % (test code = 736-9) 15.4 % MONO % (test code = 5905-5) 5.1 % EOS % (test code = 713-8) 1.1 % BASO % (test code = 706-2) 0.3 % GRAN MAT x10^3(ANC) (test code = 8502813077) 11.59 10*3/uL 1.88-7.09 H IMM GRAN x10^3 (test code = 8382750416) 0.15 10*3/uL 0-0.06 H LYMPH x10^3 (test code = 731-0) 2.32 10*3/uL 1.32-3.29 MONO x10^3 (test code = 742-7) 0.76 10*3/uL 0.33-0.92 EOS x10^3 (test code = 711-2) 0.17 10*3/uL 0.03-0.39 BASO x10^3 (test code = 704-7) 0.05 10*3/uL 0.01-0.07 Lab Interpretation (test code = 27367-6) Abnormal [facility] CenterGROUP B STREPTOCOCCUS BY [id number] 14:02:00* Test Item Value Reference Range Interpretation Comme nts Group B Streptococcus by PCR (test code = 95578-7) Negative Negative Lab Interpretation (test cod e = 75060-3) Normal [facility] CenterCOVID-19 (ID NOW RAPID TESTING)2020-09-11 00:51:00* Test Item Value Reference Range Interpretation Comme nts SARS-CoV-2 Rapid ID NOW (test code = 48420-6) Not Detected Not Detected YAMIL (test code = YAMIL) ID NOW COVID-19 As say is an isothermal nucleic acid amplification test intended for the qualitative detection of nucleic acid from SARS-CoV-2 viral RNA in nasopharyngeal ([employer]) specimens. It is used under Emergency Use [...] clinically indicated. Lab Interpretation (test code = 70018-0) Normal [facility] CenterCB WITH [id number] 00:50:00* Test Item Value Reference Range Interpretation [...] 33.1 g/dL 31.6-35.1 RDW-SD (test code = 25450-4) 50.4 fL 39-49.9 H RDW-CV (test code = 788-0) 14.5 % 12-15.5 PLT (test code = 777-3) See_Comment [Automated messa ge] The system which generated this result transmitted reference range: 166 - 358 10*3/?L. The reference range was not used to interpret this result as normal/abnormal. MPV (test code = 30782-6) 9.9 fL 9.5-12.9 NRBC/100 WBC (test code = 4824193614) See_Comment [Automated [employer] ssage] The system which generated this result transmitted reference range: 0.0 - 10.0 /100 WBCs. The reference range was not used to interpret this result as normal/abnormal. NRBC x10^3 (test code = 6706229553) <0.01 See_Comment [Automated messa ge] The system which generated this result transmitted reference range: 10*3/?L. The reference range was not used to interpret this result as normal/abnormal. GRAN MAT (NEUT) % (test code = 770-8) 76.4 % IMM GRAN % (test code = 2688476166) 0.90 % LYMPH % (test code = 736-9) 16.0 % MONO % (test code = 5905-5) 5.2 % EOS % (test code = 713-8) 1.3 % BASO % (test code = 706-2) 0.2 % GRAN MAT x10^3(ANC) (test code = 5711666434) 9.39 10*3/uL 1.88-7.09 H IMM GRAN x10^3 (test code = [id number]) 0.11 10*3/uL 0-0.06 H LYMPH x10^3 (test code = 731-0) 1.97 10*3/uL 1.32-3.29 MONO x10^3 (test code = 742-7) 0.64 10*3/uL 0.33-0.92 EOS x10^3 (test code = 711-2) 0.16 10*3/uL 0.03-0.39 BASO x10^3 (test code = 704-7) 0.03 10*3/uL 0.01-0.07 Lab Interpretation (test code = 47207-5) [facility] [id number] 08:28:44* Test Item Value Reference Range Interpretation Comme nts LDH (test code = LDH) 166 U/L 120-246 Comprehensive Metabolic [id number] 08:16:47* Test Item Value Reference Range Interpretation [...] = Lipemia) 0 g/dL 1-2 Comprehensive Metabolic Kzzsw0020-89-07 08:16:47* Test Item Value Reference Range Interpretation [...] is not provided, and the patient is -[place], multiply by 1.212. If sex is not [...] is not provided, and the patient is -Qat[place], multiply by 1.212. If sex is not [...] = Lipemia) 0 g/dL 1-2 Comprehensive Metabolic [id number] 08:16:47* Test Item Value Reference Range Interpretation [...] is not provided, and the patient is -[place], multiply by 1.212. If sex is not [...] is not provided, and the patient is -[place], multiply by 1.212. If sex is not [...] 0 g/dL 1-2 Complete Blood Count without [id number] 08:09:40* Test Item Value Reference Range Interpretation [...] = NRBC Abs) 0.00 x10 N Creatinine [id number] 15:39:13* Test Item Value Reference Range Interpretation Comme nts U Creatinine (test code = U Creatinine) 89.1 mg/dL N Reference r anges have not been established for this assay. Protein [id number] 15:39:13* Test Item Value Reference Range Interpretation Comme nts U Protein (test code = U Protein) 10.4 mg/dL 1.0-14.0 Complete Blood Count without [id number] 06:39:12* Test Item Value Reference Range Interpretation [...] x10 N US OB Greater Than 14 [id number] 19:21:42Patient: MARTINE LENTZ Date/Time07/26/2020 17:29 CDTReason for Examper md order;Other (please specify)ReportOB ULTRASOUND LIMITEDLocation: [id number] HISTORY: Confirm pregnancyLMP gest.age by LMP 34 [...] Final Dictated by: MD De La Rosa MariaVDictated DT/TM: 07/26/2020 7:17 pmSigned by: MD De La Rosa Maria VSigned (Electronic Signature): 07/26/2020 7:21 pmBeta HCG Qzbwnznhptju3547-50-11 14:42:56* Test Item Value Reference Range Interpretation Comme nts HCG, Beta Quantitative (test code = HCG, Beta Quantitative) 46134.1 mIU/mL N 17-54 (Non-)?41 (Post-menopausal) RPR Biyzugrfhrg5073-71-19 12:50:28* Test Item Value Reference Range Interpretation [...] code = Expiration Dt) 08-01-2021 N Lipid [id number] 07:58:23* Test Item Value Reference Range Interpretation [...] is LDL/HDL Ratio=LDL Calc/HDL Chol Thyroid Stimulating Fpqmmaq1677-31-29 07:58:23* Test Item Value Reference Range Interpretation Comme nts TSH (test code = TSH) 1.312 mcIU/mL 0.550-4.780 Hemoglobin [id number] 07:54:16* Test Item Value Reference Range Interpretation Comme nts Hemoglobin A1c (test code = Hemoglobin A1c) 5.1 % 4.0-5.8 Diabetic >=6.5 %Prediabetes 5.7-6.4 %Normal <5.7 % ADC / [facility] - DRUG SCREEN [id number] 22:40:00* Test Item Value Reference Range Interpretation Comme nts BENZO U (test code = 7039750466) Negative Negative ARNOLD U (test code = 1485886605) Negative Negative AMPHET (test code = 1411570206) Negative Negative THC (test code = 7761884727) Negative Negative METHADONE (test code = 9183812369) Negative Negative Meth U (test code = 8079057201) Negative Negative OPIATES (test code = 0473528322) Negative Negative Cocaine Metabolite (test code = 8402231888) Negative Negative PROPOXY (test code = 0331925420) Negative Negative Tric U (test code = 5438291054) Negative Negative PCP (test code = 4938662938) Negative Negative OXYCOD (test code = 3508338676) Negative Negative YAMIL (test code = YAMIL) [...] legal testing). Lab Interpretation (test code = 93448-0) Normal [facility] URINALYSIS W/O SPECIFIC [id number] 14:00:00* Test Item Value Reference Range Interpretation [...] = 3257) N/A Negative - Negati ve [facility]OLIC PANEL (15989)2020-03-07 00:39:00* Test Item Value Reference Range Interpretation Comme nts NA (test code = 7886933373) 139 mmol/L 135-145 K (test code = 3788811072) 3.9 mmol/L 3.5-5 CL (test code = 7533685022) 108 mmol/L 98-108 CO2 TOTAL (test code = 8343684850) 22 mmol/L 23-31 L AGAP (test code = 0271885476) 2-16 BUN (test code = 5280023413) 5 mg/dL 7-23 L GLUCOSE (test code = 3933287632) 103 mg/dL 70-110 CREATININE (test code = 7469787755) 0.44 mg/dL 0.5-1.04 L TOTAL BILI (test code = 9941456444) <0.1 0.1-1.1 L CALCIUM (test code = 0686282947) 9.7 mg/dL 8.6-10.6 T PROTEIN (test code = 1342470896) 6.2 g/dL 6.3-8.2 L ALBUMIN (test code = 7638625277) 3.6 g/dL 3.5-5 ALK PHOS (test code = 4151560367) 56 U/L 34-122 ALTv (test code = 1742-6) 10 U/L 5-35 AST(SGOT) (test code = 0524610562) 20 U/L 13-40 eGFR Calculation (Non-) (test code = 5331082418) mL/min/1.73m2 eGFR Calculation () (test code = 4663715527) mL/min/1.73m2 YAMIL (test code = YAMIL) Association [...] imaging tests). Lab Interpretation (test code = 98425-0) Abnormal [facility] CenterACETAMINOPHEN2020-05-06 00:39:00* Test Item Value Reference Range Interpretation Comme nts ACETAMINOP (test code = 8221317790) <10.0 10-30 L YAMIL (test code = YAMIL) Toxic: Greater hanna n 200 ug/mL @ 4 hour post ingestion or greater than 50 ug/mL @ 12 hour post ingestion Lab Interpretation (test code = 42763-2) Abnormal [facility] CenterSALICYLATE2020-05-06 00:39:00* Test Item Value Reference Range Interpretation Comme nts SALICYLATE (test code = 5877417305) <10 mg/L YAMIL (test code = YAMIL) Therapeutic Range: ? Analgesic and Antipyretic Use ? 20-100 mg/L ? ? Anti-Inflammatory Use ? 100-250 mg/L Toxic Range: ? Greater than 300 mg/L [facility] CenterPOCT [id number] 00:38:00* Test Item Value Reference Range Interpretation Comme nts POCT PREG (test code = 1605) positive On board controls acceptable with C Line (test code = 3574) present POCT PREG LOT # (test code = 3575) [id number] POCT PREG TEST DATE ( test code = 3576) 06-01-2021 Lab Interpretation (test cod e = 62650-1) Normal [facility] CenterETHANOL2020-05-06 00:37:00* Test Item Value Reference Range Interpretation Comme nts ALCOHOL (test code = 3707468234) 88 mg/dL YAMIL (test code = YAMIL) <10 Hpvwwejv00-696 Toxic>100 Depression of YARD SPOTTER>400 Fatalities Reported [facility] CenterMAGNESIUM2020-05-06 00:36:00* Test Item Value Reference Range Interpretation Comme nts MAGNESIUM (test code = 4770055757) 1.6 mg/dL 1.7-2.4 L Lab Interpretation (test cod e = 62172-3) Abnormal [facility] CenterURINALYSIS2020-05-06 00:15:00* Test Item Value Reference Range Interpretation Comme nts APPEARANCE (test code = 0021517000) Clear Clear COLOR (test code = 4891999042) Yellow Yellow PH (test code = 9620039613) 4.8-8.0 SP GRAVITY (test code = 7867595617) 1.003-1.030 GLU U QUAL (test code = 2464613219) Normal Normal BLOOD (test code = 5845750774) Negative Negative KETONES (test code = 7074063691) Negative Negative PROTEIN (test code = 2887-8) Negative Negative UROBILIN (test code = 1331483454) Normal Normal BILIRUBIN (test code = 2807542240) Negative Negative NITRITE (test code = 7825425551) Negative Negative LEUK MARY (test code = 1047322213) Negative Negative RBC/HPF (test code = 7793915075) <1 See_Comment [Automated [employer]] The system which generated this result transmitted reference range: 0 - 3 HPF. The reference range was not used to interpret this result as normal/abnormal. WBC/HPF (test code = 7262577895) See_Comment [Automated messa ge] The system which generated this result transmitted reference range: 0 - 5 HPF. The reference range was not used to interpret this result as normal/abnormal. BACTERIA (test code = 0632788884) Few Negative A MUCOUS (test code = 4271762229) Slight Negative LPF A SQ EPITH (test code = 8682980562) HPF Lab Interpretation (test code = 29276-6) Abnormal [facility] - DRUG SCREEN [id number] 23:49:00* Test Item Value Reference Range Interpretation Comme nts BENZO U (test code = 3698954431) Presumptive Positive Negative A ARNOLD U (test code = 9034733731) Negative Negative AMPHET (test code = 5959382244) Negative Negative THC (test code = 0353097174) Negative Negative METHADONE (test code = 9611670226) Negative Negative Meth U (test code = 0042785382) Negative Negative OPIATES (test code = 8177948082) Negative Negative Cocaine Metabolite (test code = 1798661018) Negative Negative PROPOXY (test code = 3743806314) Negative Negative Tric U (test code = 5511437447) Negative Negative PCP (test code = 7822391620) Negative Negative OXYCOD (test code = 2676325606) Negative Negative YAMIL (test code = YAMIL) [...] legal testing). Lab Interpretation (test code = 20606-5) Abnormal [facility] WITH [id number] 23:34:00* Test Item Value Reference Range Interpretation [...] 34.0 g/dL 31.6-35.1 RDW-SD (test code = 36147-3) 42.4 fL 39-49.9 RDW-CV (test code = 788-0) 13.0 % 12-15.5 PLT (test code = 777-3) See_Comment [Automated messa ge] The system which generated this result transmitted reference range: 166 - 358 10*3/?L. The reference range was not used to interpret this result as normal/abnormal. MPV (test code = 17114-5) 9.7 fL 9.5-12.9 NRBC/100 WBC (test code = 5684032774) See_Comment [Automated me ssage] The system which generated this result transmitted reference range: 0.0 - 10.0 /100 WBCs. The reference range was not used to interpret this result as normal/abnormal. NRBC x10^3 (test code = 4314338200) <0.01 See_Comment [Automated messa ge] The system which generated this result transmitted reference range: 10*3/?L. The reference range was not used to interpret this result as normal/abnormal. GRAN MAT (NEUT) % (test code = 770-8) 72.0 % IMM GRAN % (test code = 8664937477) 0.40 % LYMPH % (test code = 736-9) 21.6 % MONO % (test code = 5905-5) 3.9 % EOS % (test code = 713-8) 1.8 % BASO % (test code = 706-2) 0.3 % GRAN MAT x10^3(ANC) (test code = 8085020827) 8.22 10*3/uL 1.88-7.09 H IMM GRAN x10^3 (test code = 1150119123) 0.05 10*3/uL 0-0.06 LYMPH x10^3 (test code = 731-0) 2.47 10*3/uL 1.32-3.29 MONO x10^3 (test code = 742-7) 0.45 10*3/uL 0.33-0.92 EOS x10^3 (test code = 711-2) 0.20 10*3/uL 0.03-0.39 BASO x10^3 (test code = 704-7) 0.03 10*3/uL 0.01-0.07 Lab Interpretation (test code = 00943-0) Abnormal [facility] CenterRPR, Brii9311-22-36 14:45:00* Test Item Value Reference Range Interpretation Comme nts RPR (test code = RPR) Non-Reactive Non-Reactive N Thyroid Stimulating Hormone (TSH)2017-12-30 07:29:00* Test Item Value Reference Range Interpretation Comme nts TSH (test code = TSH) 2.42 mIU/mL 0.270-4.200 N BHCG, Serum, Oclrieeifgze3236-73-53 07:29:00* Test Item Value Reference Range Interpretation Comme nts B hCG, Quant (test code = BHCGQT) <1 mIU/mL Weeks of Gestati on Ranges (mIU/mL)3 weeks 5.40 - 72.04 weeks 10.2 - 7085 weeks 217 - 35707 weeks 152 - 944365 weeks 4059 - 2822131 weeks 30398 - 8726905 weeks 40904 - 83949926 weeks 14870 - 33528486 weeks 56207 - 16380210 weeks 67915 - 5282146 weeks 91936 - 6656690 weeks 8904 - 6428757 weeks 4549 - 3738906 weeks 7421 - 29751 Lipid Gmfalhe8903-60-91 07:19:00* Test Item Value Reference Range Interpretation Comme nts Cholesterol (test code = CHOL) 132 mg/dL 0-200 N Triglycerides (test code = TRIG) 122 mg/dL 9-200 N HDL (test code = HDL) 21 mg/dL 50-60 L Chol/HDL (test code = CHOLPHDL) 6.3 Ratio 0.0-4.4 H LDL, Calculated (test code = LDLC) 87 0-130 N (NOTE)RISK OF HEART DISEASEPublished by [place]at[place] Heart AssociationAnalyte Optimal Boderline Increased RiskCHOL <200 200-239 >240TRIG <150 150-199 >200HDL Male: >60 <40HDL Female: >60 <50LDL <100 130-159 >160LDL NEAR OPTIMAL IS 100-129 VLDL (test code = VLDL) 24 mg/dL 5-40 N LDL/HDL (test code = LDLPHDL) 4 [id number] 04:24:00* Test Item Value Reference Range Interpretation [...] code = THC) POSITIVE Negative A Urinalysis Horltkja5047-42-56 03:47:00* Test Item Value Reference Range Interpretation Comme nts Color (test code = COLOR) [place] Yellow,Straw,Pl yellow A The value [place] originally released by JENA on 12/30/2017 03:42 waschanged to [place] by JENA on 12/30/2017 03:47 Clarity (test code = CLAR) Sl Cloudy Clear A The value Clear originally released by JENA on 12/30/2017 03:42 waschanged to Sl Cloudy by JENA on 12/30/2017 03:47 Specific [place] (test code = SPGR) 1.006 1.001-1.035 N [...] code = BACT) Few /HPF Comprehensive Metabolic Wzfgm9740-71-22 01:00:00* Test Item Value Reference Range Interpretation [...] race is not provided, and the patient isAfrican-Qatari, multiply by 1.212. If sex is not [...] by the National Kidney Foundation,http://nkdep .nih.gov Alcohol/Ethanol, Bkruv4347-06-26 01:00:00* Test Item Value Reference Range Interpretation Comme nts Alcohol, Ethyl (test code = ETOH) <0.01 g/dL 0.00-0.01 N Intoxicated 0 .080 g/dL or more CBC with Nkkazimrmymp6698-47-36 00:45:00* Test Item Value Reference Range Interpretation [...] code = ALYMPH) 3.8 K/cumm 0.5-4.6 N [place] Abs (test code = AMONO) 0.5 K/cumm 0.0-1.2 N Eos Abs (test code = AEOS) 1.24 K/cumm 0.00-0.74 H Baso Abs (test code = ABASO) 0.1 K/cumm 0.00-0.21 N Notes Date/Time Note Provider Source 2025-04-03 06:44:16 PT LEFT AMA. AMA PAPERS SIGNED BY PATIENT. PT COUNSELED TO REMAIN, BUT PT DECLINED. LEFT AMBULATORY. NO ATAXIA, GCS 15, AO4. PATIENT STATING SHE DOES NOT FEEL SUICIDAL ANYMORE AND HAS A COUNSELING SESSION THIS MORNING. PATIENT EDUCATED ON [employer] PHONE NUMBER. [facility] 2025-04-03 06:35:20 Psychiatric Re-Evaluation Note Emergency Department Date: April 03, 2025 I have reassessed the patient on this shift. The patient states or demonstrates that they are still having: Suicidal ideation or thoughts: Yes Homicidal ideation or thoughts: No Auditory and/or visual hallucinations: No Psychosis, paranoia, or other mental instability impairing normal decision making: No Suggested risk level of Friend: Low On reassessment, the patient should still be transferred for psychiatric assessment and care: Yes If no, explain: The patient remains medically stable for psychiatric transfer. Yes If no, explain: The patient remains : Voluntary for psychiatric treatment. The patient is being treated for the following medical conditions: Anxiety The patient has been given or is being treated with the following medications: Orders Placed This Encounter Medications LORazepam (ATIVAN) tablet 1 mg ARIPiprazole (ABILIFY) tablet 10 mg FLUoxetine (PROZAC) capsule 20 mg gabapentin (NEURONTIN) capsule 300 mg nicotine (NICODERM) 21 mg/24 hr patch 1 Patch diphenhydrAMINE (BENADRYL) tablet 25 mg Miguel A Nath MD . [facility] EMERGENCY PHYSICIAN STAFF [facility] 2025-04-03 01:57:54 Patient talking to [facility] at this time. [facility] 2025-04-02 22:33:57 Spoke to [facility] requesting a screener. Will call back with ETA. T [facility] 2025-04-02 19:41:38 SAFE-T Protocol with C-SSRS (Friend Risk and Protective Factors) - Recent Step 1: Identify Risk Factors 1) Wish to be - Have you wished you were or wished you could go to sleep and not wake up? (P) Yes 2) Current suicidal thoughts - Have you actually had any thoughts of killing yourself? (P) Yes 3) Suicidal thoughts w/method- Have you been thinking about how you might do this? (P) No 4) Suicidal intent without Specific Plan- Have you had these thoughts and had some intention of acting on them? (P) No 5) Intent with Plan- Have you started to work out or worked out the details of how to kill yourself? Do you intend to carry out this plan? (P) No 6) C-SSRS Suicidal Behavior - Have you ever done anything, started to do anything, or prepared to do anything to end your life? (P) No Suggested risk level: (P) Low Activating Events: (P) Current or pending isolation or feeling alone Treatment History: (P) Previous psychiatric diagnosis and treatments Clinical Status: (P) Hopelessness Access to lethal methods: (P) No Step 2: Identify Protective Factors (Protective factors that may not counteract significant acute suicide risk factors) Internal: (P) Identifies reasons for living External: (P) Responsibility to family or others, living with family Step 3: Specific Questioning About Thoughts, Plans, and Suicidal Intent Frequency - How many times have you had these thoughts? (P) 2-5 times a week Duration - When you have the thoughts, how long do they last? (P) Less than 1 hour/some of the time Controllability - Could/can you stop thinking about killing yourself or wanting to if you want to? (P) Can control thoughts with little difficulty Deterrents - Are there things, anyone or anything (e.g. family, hinduism, pain of ), that stopped you from wanting to or acting on thoughts of suicide? (P) Deterrents definitely stopped from attempting suicide Reasons for ideation - What sort of reasons did you have for wanting to or kill yourself? Was it to end pain, stop the way you are feeling, or to get attention, revenge or reaction from others? Or both? (P) Completely to get attention, revenge, or a reaction from others Stratification: High Suicide Risk Moderate Suicide Risk Low Suicide Risk ?? Suicidal ideation with intent or intent with plan in past month (C-SSRS Suicidal Ideation #4 or #5) Or ?? Suicidal behavior within past 3 months (C-SSRS Suicidal Behavior) ?? Suicidal ideation with method, WITHOUT plan, intent or behavior in past month (C-SSRS Suicidal Ideation #3) Or ?? Suicidal behavior more than 3 months ago (C-SSRS Suicidal Behavior Lifetime) Or ?? Multiple risk factors and few protective factors ?? Wish to or Suicidal Ideation WITHOUT method, intent, plan or behavior (C-SSRS Suicidal Ideation #1 or #2) Or ?? Modifiable risk factors and strong protective factors Or ? No reported history of Suicidal Ideation or Behavior Location / Risk: Inpatient / Moderate: Suicidal ideation with intent and a plan in the past month but has protective factors, OR Suicidal behavior more than 3 months ago OR suicidal ideation with intent or method, no plan but has multiple risk factors and few protective factors. a. Directly address suicide risk with patient and family . b. Develop Safety plan including counseling about restriction and removal of firearms, medications, means to hang oneself, large sharp objects, etc. See safety plan. c. Consider transfer to Inpatient Psychiatry Hospital/ Inpatient Psychiatry Consult if unable to develop a safety plan. d. If patient is not transferred, will arrange for patient to be seen by Psychiatry provider within one week of discharge, and will also place referral to outpatient behavioral health resources. [facility] 2025-04-02 19:25:42 Patient educated on emergency department behavioral process and precautions. Educated on the need for direct observation, removal of belongings, and clearing of room for patient safety. Patient given community resources for outpatient treatment and care. [facility] 2025-04-02 19:12:51 Patient arrived to ED via [facility] c/o Suicidal Ideations that have been off and on. Patient recently AMA from here stating she felt better and her SI was gone. Today patient states she wants to go to a facility. She feels like her environment is making her feel this way. Hx of anxiety and PTSD. Sonal Jo RN [facility] 2025-04-02 19:06:[address] 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 Increased depression over baseline. (+) suicidal. No plan or attempt. Feels her PTSD is exacerbated by [facility]. (+) prior mental health hospitalizations. Last was 12/2024. No current acute medical concerns. No recent injury. Verified she is currently taking the following scheduled medications Abilify 10mg daily, Prozac 20mg daily, Gabapentin 300mg TID. She is currently anxious as well. History provided by: Patient Past Medical History/Immunizations: Past Medical History: Diagnosis Date Abdominal pain, other specified site Anemia Anxiety Depression Genital herpes History of cardiac arrest 2010 see EMR History of drug abuse 03/15/2020 Medication exposure during first trimester of 03/15/2020 Previous section 03/15/2020 Tetanus received in last 5 years: Unknown Allergies: Allergies Allergen Reactions Bactrim [Sulfamethoxazole-Trimethopr im] Swelling Morphine Unknown - See comments Per patient she went into cardiac arrest after receiving morphine at the hospital March 2011 Penicillin Unknown - See comments Past Social History: Tobacco Use Every Day; 0.5 packs/day; Types: Cigarettes Smokeless Tobacco: Never used smokeless tobacco. Alcohol Use Yes. Drug Use No. Comments: pt reports no Sexual Activity Sexually active; Partners: Male; Control/Protection: None. Past Surgical History: Past Surgical History: Procedure Laterality Date SECTION Review of Systems: Review of Systems Constitutional: Negative. HENT: Negative. Eyes: Negative. Respiratory: Negative. Cardiovascular: Negative. Gastrointestinal: Negative. Genitourinary: Negative. Musculoskeletal: Negative. Skin: Negative. Neurological: Negative. Psychiatric/Behavioral: Positive for suicidal ideas. Physical Exam: Physical Exam ED Triage Vitals [04/02/251916] Weight 72.6 kg (160 lb) Actual or estimated Estimated by patient/family report Height 1.524 m (5') BP 125/69 Pulse 94 Resp 16 Temp 37.3 ?C (99.2 ?F) Temp source Oral SpO2 96 % Measured on Room air Physical Exam Vitals and nursing note reviewed. Constitutional: General: She is not in acute distress. Appearance: Normal appearance. She is not ill-appearing, toxic-appearing or diaphoretic. HENT: Head: Normocephalic and atraumatic. Right Ear: External ear normal. Left Ear: External ear normal. Nose: Nose normal. Mouth/Throat: Mouth: Mucous membranes are moist. Eyes: Extraocular Movements: Extraocular movements intact. Conjunctiva/sclera: Conjunctivae normal. Cardiovascular: Rate and Rhythm: Normal rate and regular rhythm. Pulmonary: Effort: Pulmonary effort is normal. No respiratory distress. Abdominal: General: There is no distension. Musculoskeletal: General: No signs of injury. Normal range of motion. Cervical back: Normal range of motion. Skin: General: Skin is warm and dry. Neurological: General: No focal deficit present. Mental Status: She is alert. Psychiatric: Behavior: Behavior normal. Judgment: Judgment normal. Radiology: No orders to display Lab Results: Lab Results CBC WITH DIFF - Abnormal Result Value Ref Range WBC 14.39 (*) 4.30 - 11.10 10*3/?L RBC 3.64 (*) 3.93 - 5.25 10*6/?L HGB 10.3 (*) 11.6 - 15.0 g/dL HCT 32.1 (*) 35.7 - 45.2 % MCV 88.2 80.6 - 95.5 fL MCH 28.3 25.9 - 32.8 pg MCHC 32.1 31.6 - 35.1 g/dL RDW-SD 52.0 (*) 39.0 - 49.9 fL RDW-CV 15.9 (*) 12.0 - 15.5 % PLT 409 (*) 166 - 358 10*3/?L MPV 9.5 9.5 - 12.9 fL NRBC/100 WBC 0.0 0.0 - 10.0 /100 WBCs NRBC x10 3 <0.01 10*3/?L GRAN MAT (NEUT) % 73.0 % IMM GRAN % 0.40 % LYMPH % 18.1 % MONO % 6.3 % EOS % 1.9 % BASO % 0.3 % GRAN MAT x10 3 (ANC) 10.49 (*) 1.88 - 7.09 10*3/uL IMM GRAN x10 3 0.06 0.00 - 0.06 10*3/uL LYMPH x10 3 2.61 1.32 - 3.29 10*3/uL MONO x10 3 0.90 0.33 - 0.92 10*3/uL EOS x10 3 0.28 0.03 - 0.39 10*3/uL BASO x10 3 0.05 0.01 - 0.07 10*3/uL ACETAMINOPHEN - Abnormal ACETAMINOP <10.0 (*) 10.0 - 30.0 ug/mL URINE DRUG (IMMUNOASSAY) - COMPREHENSIVE DRUG SCREEN W/O REFLEX - Normal AMPHET Negative Negative ARNOLD U Negative Negative BENZO U Negative Negative Cocaine Metabolite Negative Negative METHADONE Negative Negative OPIATES Negative Negative PCP Negative Negative THC Negative Negative INFLUENZA A/B RSV COVID NAAT - Normal Influenza A NAAT Negative Negative Influenza B NAAT Negative Negative RSV by PCR Negative Negative SARS-CoV-2 NAAT Negative Negative CREATINE KINASE - Normal CK 64 33 - 194 U/L FENTANYL (IMMUNOASSAY) - Normal FENTANYL Negative Negative COMP. METABOLIC PANEL (41897) NA 136 135 - 145 mmol/L K 4.1 3.5 - 5.0 mmol/L CL 104 98 - 108 mmol/L CO2 TOTAL 27 23 - 31 mmol/L AGAP 5 2 - 16 BUN 13 7 - 23 mg/dL GLUCOSE 95 70 - 110 mg/dL CREATININE 0.75 0.50 - 1.04 mg/dL TOTAL BILI 0.2 0.1 - 1.1 mg/dL CALCIUM 9.3 8.6 - 10.6 mg/dL T PROTEIN 6.7 6.3 - 8.2 g/dL ALBUMIN 4.0 3.5 - 5.0 g/dL ALK PHOS 89 34 - 122 U/L ALTv 17 5 - 35 U/L AST(SGOT) 19 13 - 40 U/L eGFR 101.5 mL/min/1.73m2 ETHANOL ALCOHOL <10 mg/dL SALICYLATE SALICYLATE <10 mg/L URINALYSIS APPEARANCE Clear Clear COLOR Yellow Yellow PH 6.0 4.8 - 8.0 SP GRAVITY 1.016 1.003 - 1.030 GLU U QUAL Normal Normal BLOOD Negative Negative KETONES Negative Negative PROTEIN Negative Negative UROBILIN Normal Normal BILIRUBIN Negative Negative NITRITE Negative Negative LEUK MARY Negative Negative RBC/HPF 1 0 - 3 HPF WBC/HPF 2 0 - 5 HPF BACTERIA Negative Negative SQ EPITH 8 HPF CA OXALATE 1 <=1 HPF EKG: If EKG completed, see Procedure Note. Orders and Treatments: Orders Placed This Encounter Procedures Urine Drug (Immunoassay) Comprehensive Drug Screen w/o Reflex Comprehensive Metabolic Panel (78513) CBC with Differential Ethanol (ETOH) Level Influenza A B RSV COVID NAAT Creatine Kinase Acetaminophen Salicylate Fentanyl (Immunoassay) Lab Only COVID Interpretation URINALYSIS Orders Placed This Encounter Medications LORazepam (ATIVAN) tablet 1 mg ARIPiprazole (ABILIFY) tablet 10 mg FLUoxetine (PROZAC) capsule 20 mg gabapentin (NEURONTIN) capsule 300 mg First Provider Eval: ED Events Date/Time Event User Comments 04/02/251910 Medical Screening Begins LUCIO BOX MD -- 04/02/251910 First Provider Evaluation LUCIO BOX MD -- ED COURSE ED Course as of 04/02/252220 [place] Apr 02, 20252218 Medically cleared for [facility] assessment. [RK] ED Course User Index [RK] Lucio Box MD Diagnosis/Impression as of 04/02/252220 Suicidal ideation Anxiety PTSD (post-traumatic stress disorder) Leukocytosis, unspecified type - Without clinical findings of infection Results Procedures: Procedures MDM: Assessment & Plan Medical Decision Making Primary impression: suicidal ideation Secondary impression: PTSD, anxiety Differential Diagnoses, including but not limited to: electrolyte / glucose abnl, anemia, CHRISTINE, toxidrome Problems Addressed: Anxiety: acute illness or injury Leukocytosis, unspecified type: self-limited or minor problem PTSD (post-traumatic stress disorder): chronic illness or injury Suicidal ideation: acute illness or injury Amount and/or Complexity of Data Reviewed Independent Historian: Details: self Labs: ordered. Decision-making details documented in ED Course. Radiology: Details: N/a Risk Prescription drug management. Risk Details: Care transferred to Dr Nath at end of shift with [facility] assessment and final dispo pending. Flowsheet Documentation: Scoring Tools: No data recorded Disposition/Condition: ED Disposition ED Disposition Transfer - IFT Psych Condition Stable Comment -- Discharge Medications: Patient's Medications START taking these medications No medications on file CONTINUE taking these medications which have NOT CHANGED METRONIDAZOLE 500 MG TABLET Take 1 tablet by mouth in the morning and 1 tablet in the evening. ONDANSETRON 4 MG DISINTEGRATING TABLET Take 1 tablet by mouth every 8 (eight) hours as needed for Nausea and Vomiting (N/V). PNV [id number] 1-DSS-DHA (VITAFOL FE+, WITH DOCUSATE,) 90 MG IRON-1 MG -50 MG-200 MG CAP Take 1 TAB-CAP/M2 by mouth daily. RISPERIDONE 2 MG TABLET Take 2 mg by mouth daily. SERTRALINE (ZOLOFT) 50 MG TABLET Take 50 mg by mouth daily. START taking Modified Medications as Prescribed No medications on file STOP taking these medications No medications on file Follow-up: Care transferred to Dr Nath at end of shift with [facility] assessment and final dispo pending. [facility] 2025-04-01 01:00:[address] [facility] PD notified of patient AMA. Sonal Jo RN [facility] 2025-04-01 00:57:23 Patient sitting in bed smiling. Patient states she is not suicidal anymore. "It was the meth that was making me paranoid." Patient educated on policy for leaving AMA while on SI precautions. PIV removed. Aox4. Gait ambulatory. Provider notified. [facility] 2025-04-01 00:03:51 Summary: patient eating Patient was given a turkey sandwhich, jello, pudding and a juice. Patient tolerated food. T [facility] 2025-03-31 23:29:15 Summary: talking with provider Patient is talking with the provider. T Michelle SHAFFER [facility] 2025-03-31 23:07:27 Patient/family educated on emergency department behavioral process and precautions. Educated on the need for direct observation, removal of belongings, and clearing of room for patient safety. Patient/family given [facility] resources for outpatient treatment and care. [facility] 2025-03-31 22:56:27 Pt presents to ED via [facility] for c/o SI, anxiety, paranoia, headache, and meth use at 1200. Pt tachycardic with EMS, 20 G IV en route, with 250 mL of fluid given en route. Brock Perez RN [facility] 2025-03-13 15:51:36 Notified the patient of her positive STI results trichomonas. Notified the patient her medication has been sent to her pharmacy on file. Educated patient she should complete the entire course, advised patient to practice safe sex practices and to remain abstinent for at least 1-2 weeks post treatment. Patient declines to have partner treated. Offered std pamphlet for partner education. Patient declinedstd pamphlet to be mailed to partner. Advised patient on HIV testing if she has not recently been tested. Advised TEREZA appointment in 3 months. Pt verbalized understanding. Amy Henderson LVN [facility] 2025-03-13 14:06:40 Please notify the patient of her positive STI results. Please notify the patient her medication has been sent to her pharmacy on file. She should complete the entire course.Please advise her on safe sex practices and to remain abstinent for at least 2 weeks post treatment. Her partner can be treated and tested per protocol. If she is not she will need a TEREZA in 3 months. ROMARIO Argueta 03/13/2025 2:08 PM [facility] Freddy Guzman [facility]2025-04-11 00:00:00 Freddy Guzman [facility]2024-06-14 13:56:16 Pt given printed and verbal discharge [...] with steady gait, in no apparent distress. T [id number] 13:45:00 Upon discharge, patient requesting to be tested for STD's, provider notified. T [id number] 12:12:37 Patient requesting to be tested for HIV, medical records from 2010, and help for her mental health problems including hallucinations. Provider notified. [id number] 11:35:40 Patient arrived in custody with [employer] by [facility] for weakness, patient states she feels like she is going to pass out and feels like she is in afib. Patient also complains of sciatica pain. Kathy Perera RN[id number] 11:29:00 Associated Order(s): EKG-12 Lead ROUTINE ONCE Pre-Procedure Diagnose(s): Substance abuse Post-Procedure Diagnose(s): Substance abuse 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 treatment: Saline lock Travel and Exposure Screening: Symptoms Does patient have any of these symptoms?: (not recorded) Exposure Screening Has patient had contact with someone with a communicable disease in the last month?: (not recorded) Diseases exposed to:: (not recorded) Is Patient ?: (not recorded) Exposure Date: (not recorded) Chief Complaint: Chief Complaint Patient presents with Weakness Long Term clearance History of Present Illness: Pt has [...] it is possible for black magic and tenriism to make her feel the way that she does, she prayed for jolly lizama on [employer] and since then black cars have been following her She has no fever no si/hi, [facility], seeking medical clearance, she denies si/hi Past [...] Procedures Cbc with Diff Comp. Metabolic Panel (29011) Troponin I POCT Test Urinalysis Urine Drug [...] it is possible for black magic and tenriism to make her feel the way that she does, she prayed for jolly lizama on [employer] and since then black cars have been following her She has no fever no si/hi, she is under arrest with [facility], seeking medical clearance, she denies si/hi Pt [...] her to a psych hospital because in penitentiary they put her in a padded room. She says she has severe anxiety and wants to go to a psych hospital for anxiety, when asked if she had anxiety before arrest she said no. She has acute stressors of penitentiary, she did not have any chest pain before, She says she has adderall and xanex prescriptions but her friend picks them up because that friend has insurance and she does not After this info, I checked her [employer]GE[employer]NER she is getting benzos/opiats/amphetamines, but now pt is tating her friend is getting them an not her She asked for me to give her IV narcotics for her back pain, this is pain she did not have initially, I informed her I would not give her narcotics She does have a bladder infection She is going to penitentiary and is anxious will give a xanex Medically her bp and hr have been stable in sinus rhythm Will dc to penitentiary She has some manipulitave behavior but as she is in custody they can enlist their Mental heatlh professionals as needed She is now asking for STD, HIV and thorazine She seems to be delaying her Long Term and manipulating nursing/health care for concerns she was not worried about until she got arrested. I agree she should have comprehensive health care and mental health care, but she did not come in for any individual event and would not be here if not in penitentiary. And her reason for seeking care was [...] 0.01 - 0.07 10*3/uL -Comp. Metabolic Panel (99108): Collection Time: 04/15/24 12:02 PM Result Value [...] needed for Nausea and Vomiting (N/V). PNV [id number] 1-DSS-DHA (VITAFOL FE+, WITH DOCUSATE,) 90 MG [...] signed by: Mari Herndon MD 04/15/24 1347 [place] [address]-06-08 10:18:02 Left AMA, walk out in ER with steady gait and with belonging. vitally stable. [place] [address]-06-08 10:05:44 Patient was seen by Brigitte AGUIAR, but patient refused the work up and insisted to do her work up in [facility]. Gino wrap applied to right wrist. Jacqueline HERNANDEZdirector of creative services aware. [place] [address]-06-08 09:30:21 Came by clute ems states" she complaint of right wrist sprained, he has hx of psychosis, PTSD and afib" Denies any trauma, states she lift a heavy trash a mos ago [place] [address]-01-13 15:04:00 Regardiny/f pt calling states she's been having visions, says someone is going to take kids from her ----- Message from Roxanne Perla sent at 11/14/2023 3:02 PM SCHOOL ADMISSIONS REPRESENTATIVE ----- Martine Lentz is a 43 year old female states she is an addict, and is crying OL ADMISSIONS REPRESENTATIVE Alisa Spann RNUT - [id number] 15:04:00 Adult Triage Assessment Last Clinic Visit: 05/01/23, ER, n/v Primary Symptom: hallucinations Onset / Duration: unknown Location / Description: psych Pain / Severity: 2/10 mouth pain Associated Symptoms: mouth hurts, feels [...] Pt stating that she feels like the [employer]uk[employer] has hacked her phone and is following her. Pt reports she needs to tell President Jessica what happened. Pt states Pt rambles about lots of events including people are watching her, CPS is taking her kids away, she has stopped pills, now taking them again, she has been on a vent in the hospital, her mom , claims account manager keep coming to her home, people are [...] friend or family member) available Protocols used: Vinbfsljxupou-KEDRV-CH [facility]2020-11-25 14:55:[id number] [place] [id number] [place], [place] [address] PATIENT NAME: MARTINE LENTZ ADMIT DATE: 09/13/20 ACCOUNT NO: [id number] ROOM NO: AGE: 40 SEX: F ADMITTING PHYSICIAN: Sherman [...] Dictated By: Sherman Collazo III, MD WT: DS:KAM/HOLLY/AYAKA Conf#: [id number]/DID#: [id number] PATIENT NAME: MARTINE LENTZ Authenticated and Edited by Sherman Collazo MD On 09/29/20 4:16:09 PM at 1618 PATIENT NAME: MARTINE LENTZ 09:10:00 [facility] OB Postpart Progr Note REPORT#:[id number] REPORT STATUS: Signed DATE:09/16/20 TIME: 909 PATIENT: MARTINE LENTZ UNIT #: [id number] ROOM/BED: [address] : 82 AGE: 40 SEX: F [...] The pt states she had PNC at [facility], but then stopped going. She doesn't like them because of the morphine issue. She states she was going to breast feed, but they asked her to set an alarm every 2 hours, but her phone is . She can't call home because all calls are long distance, and her room phone won't allow it. When I offered to find her a photographer portrait for her phone, she said no it's [...] Pulse Ox FiO2 09/15-09/16 98.0-99.1 69-85 18 135-145/-78 Last Documented: Result Date Time B/P 09/16 Temp 98.5 09/16 423 Pulse 69 09/16 042 Resp 18 09/16 423 B/P Mean 94.0 09/14 0603 Pulse Ox 97 09/14 0603 Patient Weight Weight (lb): 200 Weight (oz): [...] to leave AMA. Consultation(s): Consultation performed: social worker clinical (per nurse, they saw her alread) at 0937 RPT #:[id number] END OF REPORT [id number] 12:33:00 [facility] ([facility]) OB Postpart Progr Note REPORT#:[id number] REPORT STATUS: Signed DATE:09/15/20 TIME: 1233 PATIENT: MARTINE LENTZ UNIT #: [id number] ROOM/BED: 2020-A : 82 AGE: 40 SEX: [...] % (Auto) (14.3 - 34.3 %) 19.0 [place] % (Auto) (5.1 - 10.4 %) 3.7 L Eos % (Auto) (0.1 - 3.0 %) 0.9 Baso % (Auto) (0.1 - 1.0 %) 0.2 Neut # (Auto) (K/mm3) 13.3 Lymph # (Auto) (K/mm3) 3.3 [place] # (Auto) (K/mm3) 0.7 Eos # (Auto) [...] possible dc home tomorrow at 1245 RPT #:[id number] END OF REPORT [id number] 13:34:00 [facility] ([facility]) Clinical Note REPORT#:[id number] REPORT STATUS: Signed DATE:09/14/20 TIME: 1334 PATIENT: MARTINE LENTZ UNIT #: [id number] ROOM/BED: : 82 AGE: 40 SEX: F [...] Flow FiO2 Mean Ox Delivery Rate 09/14 08 97.7 80 20 137/68 09/14 0603 94.0 [...] (Auto) (14.3 - 34.3 %) 12.9 L [place] % (Auto) (5.1 - 10.4 %) 4.4 L Eos % (Auto) (0.1 - 3.0 %) 1.0 Baso % (Auto) (0.1 - 1.0 %) 0.2 Neut # (Auto) (K/mm3) 16.9 Lymph # (Auto) (K/mm3) 2.7 [place] # (Auto) (K/mm3) 0.9 Eos # (Auto) [...] will check rubella status at 1338 RPT #:[id number] END OF REPORT [id number] 01:44:00 [facility] ([facility]) Clinical Note REPORT#:[id number] REPORT STATUS: Signed DATE:09/14/20 TIME: 014 PATIENT: MARTINE LENTZ UNIT #: [id number] [facility] AGE: 40 SEX: F ATTEND: Sherman Collazo III, MD ADM AUTHOR: Sherman Clolazo III, MD * ALL edits or amendments must be made on the electronic/computer document * Clinical Note Note: [facility] Hospitalist Zay To meet the standard of care, there was a need for a surgical rn on this patient's c/section. There were no medical students, residents or any other surgical assistants available to assist. I was present as the only surgical rn for the entire procedure from start to finish. jr at 0148 RPT #:[id number] END OF REPORT [id number] 00:19:00 [facility] ([facility]) Full Op Note REPORT#:[id number] REPORT STATUS: Signed DATE:09/14/20 TIME: 18 PATIENT: MARTINE LENTZ UNIT #: [id number] [facility] AGE: 40 SEX: F ATTEND: Sherman Collazo III, MD ADM AUTHOR: Nael Carter MD * ALL edits or amendments must be made on the electronic/computer document * Operative Report Start date: 09/14/20 Start time: 104 Pre-procedure diagnosis: 39 weeks previous c/s in labor Post-procedure diagnosis: 39 weeks previous c/s in labor Procedures performed: repeat section Technique/Procedure: LUT Primary Surgeon: nita Justice Court Judge(s): santana collazo Anesthesia: spinal anesthetic Operative findings: normal uterus, ovaries, tubes minimal adhesions male infant apgars 8/8 TOB 0110 Complications: none Estimated [...] incision with mild fundal pressure by the shop assistant. The baby is delivered easilyThe cord [...] PACU in good condition. at 0314 RPT #:[id number] END OF REPORT [id number] 00:01:00 [facility] ([facility]) OB Admission / H P REPORT#:[id number] REPORT STATUS: Signed DATE:09/14/20 TIME: 2329 PATIENT: MARTINE LENTZ UNIT #: [id number] ROOM/BED: [address] : 82 AGE: 40 SEX: F ATTEND: Sherman Collazo III, MD ADM AUTHOR: Nael Carter MD * ALL edits or amendments must be made on the electronic/computer document * OB History Chief complaint: uterine contractions (previous ) HPI: 40 yo at 39 weeks with regular uterine contractions previous c/s for herpes outbreak 2012 currently with HSV outbreak in [facility] [place] Transferred to [place] for h/o being AMA previous reaction to [...] category 1 Result Findings/Data: Laboratory Tests: 09/13 2320 Hematology WBC (6.6 - 12.1 K/mm3) [...] (Auto) (14.3 - 34.3 %) 12.9 L [place] % (Auto) (5.1 - 10.4 %) 4.4 L Eos % (Auto) (0.1 - 3.0 %) 1.0 Baso % (Auto) (0.1 - 1.0 %) 0.2 Neut # (Auto) (K/mm3) 16.9 Lymph # (Auto) (K/mm3) 2.7 [place] # (Auto) (K/mm3) 0.9 Eos # (Auto) (K/mm3) 0.21 Baso # (Auto) (K/mm3) 0.1 Serology SARS-CoV-2 Ag (Rapid) (NEGATIVE) NEGATIVE Diagnosis, Assessment Plan Diagnosis, Assessment Plan Assessment/Impression: previous C/S, in labor (39 weeks), normal FHR pattern, reactive NST Plan: admit to inpatient, , delivery at 0212 RPT #:[id number] END OF REPORT [id number] 21:35:56[facility] Discharge Summary PATIENT NAME: MARTINE LENTZ PHYSICIAN: Liz Reid MD Admitted: MR NUMBER: [id number] DISCHARGED: 12/31/2017 02:01:00 REASON FOR ADMISSION: Martine Lentz is a 37-year-old female with a past psychiatric history, major depressive disorder, generalized anxiety disorder, and panic disorder, who presented to [facility] voluntarily for worsening depression and distressing auditory [...] delusional that writers from social media and [employer] put "black magic" on her a couple [...] writers on social media who she cannot [facility] Discharge Summary PATIENT NAME: MARTINE LENTZ PHYSICIAN: Liz Reid MD Admitted: MR NUMBER: [id number] DISCHARGED: 12/31/2017 02:01:00 REASON FOR ADMISSION: Martine Lentz is a 37-year-old female with a past psychiatric history, major depressive disorder, generalized anxiety disorder, and panic disorder, who presented to [facility] voluntarily for worsening depression and distressing auditory [...] writers on social media who she cannot [facility] Discharge Summary identify. She was much more [...] home continue her psychotropic medications, followup with [facility] Psych[facility] and start therapy. MENTAL STATUS [...] throughout the interview. GAIT: Normal. LABORATORY DATA: [facility] Discharge Summary identify. She was much more [...] home continue her psychotropic medications, followup with [facility] Psychiatry and start therapy. MENTAL STATUS [...] throughout the interview. GAIT: Normal. LABORATORY DATA: [facility] Discharge Summary Serum less than 1. Lipid [...] appointment. She was also given resources for [facility] for therapy. DISPOSITION: Martine Lentz is currently [...] The patient has also met with her protective services social worker to obtain the appropriate followup paperwork depends upon through this plan has been reviewed with the patient with the understanding that compliance will be crucial to her recovery. She has been given the [facility] crisis hotline, which is and the information about [facility] if she wishes to be in therapy. Liz Reid MD [facility] Discharge Summary Serum less than 1. Lipid [...] appointment. She was also given resources for [facility] for therapy. DISPOSITION: Martine Lentz is currently [...] The patient has also met with her protective services social worker to obtain the appropriate followup paperwork depends upon through this plan has been reviewed with the patient with the understanding that compliance will be crucial to her recovery. She has been given the [facility] crisis hotline, which is and the information [facility] if she wishes to be in therapy. Liz Reid MD [facility] Discharge Summary MD HENOK Desai/ISAIAH TD: 01/10/2018 23:37 CC:Norma Zhang MD Electronically Authenticated and Edited by: Liz Reid MD On 01/24/2018 09:35 PM CDT [facility] Discharge Summary MD HENOK Desai/ISAIAH TD: 01/10/2018 23:37 CC:Norma Zhang MD Electronically Authenticated and Edited by: Liz Reid MD On 01/24/2018 09:35 PM CDT Electronically Authenticated by: Norma Zhang MD On 01/26/2018 01:31 PM [id number] 12:05:[address] [place] [address] Psych Eval PATIENT NAME: MARTINE LENTZ PHYSICIAN: Liz Reid MD Admitted: MR NUMBER: [id number] DISCHARGED: Psych Eval Patient Name: MARTINE LENTZ Date of Service: Date of : 1980 Clinician: Liz Reid MD User Field 1: J Encounter Visit: [facility] User Field 3: J Referring Norma Zhang MD Clinician: DATE OF ADMISSION: 12/29/2017 ATTENDING PHYSICIAN: Norma Zhang MD TIME OF PSYCHIATRIC EVALUATION: 12/30/2017 at 8:30 a.m. INFORMANTS: The patient, [facility] medical record. CHIEF COMPLAINT: "I need help for these voices." HISTORY OF PRESENT ILLNESS: Martine Lentz is a 37-year-old female with a past psychiatric history of major depressive disorder, generalized anxiety disorder, panic disorder, and opioid use disorder, who came into [facility] voluntarily for worsening depression and distressing auditory hallucinations. She has had one psychiatric hospitalization here and was discharged from [facility] in March 2013. She reports that she [...] distressing that she quit her job at [employer]. She has also been having delusions for [...] for this depression and these voices 2 [facility] Psych Eval PATIENT NAME: MARTINE LENTZ PHYSICIAN: Liz Reid MD Admitted: MR NUMBER: [id number] DISCHARGED: Psych Eval Patient Name: MARTINE LENTZ Date of Service: Date of : 1980 Clinician: Liz Reid MD User Field 1: J Encounter Visit: [facility] User Field 3: J Referring Norma Zhang MD Clinician: DATE OF ADMISSION: 12/29/2017 ATTENDING PHYSICIAN: Norma Zhang MD TIME OF PSYCHIATRIC EVALUATION: 12/30/2017 at 8:30 a.m. INFORMANTS: The patient, [facility] medical record. CHIEF COMPLAINT: "I need help for these voices." HISTORY OF PRESENT ILLNESS: Martine Lentz is a 37-year-old female with a past psychiatric history of major depressive disorder, generalized anxiety disorder, panic disorder, and opioid use disorder, who came into [facility] voluntarily for worsening depression and distressing auditory hallucinations. She has had one psychiatric hospitalization here and was discharged from [facility] in March 2013. She reports that she [...] distressing that she quit her job at [employer] [facility] [employer]. She has also been having delusions for [...] The patient has had one hospitalization at [facility]. She was discharged from [facility] in March 2013. At that time, she [...] The patient has had one hospitalization at [facility]. She was discharged from [facility] in March 2013. At that time, she [...] mom. She was last employed at the [employer] [facility] [employer], but stopped working because of the voices. [...] mom. She was last employed at the [employer] [facility] [employer], but stopped working because of the voices. [...] disorder, and panic disorder, who presented to [facility] voluntarily for worsening depression and distressing auditory [...] also has a delusion that writers from [employer] put "black magic" on her a couple [...] disorder, and panic disorder, who presented to [facility] voluntarily for worsening depression and distressing auditory [...] also has a delusion that writers from [employer] put "black magic" on her a couple [...] to Dr. Zhang's service on the [facility] and placed on suicide, elopement, [...] to Dr. Zhang's service on the [facility] and placed on suicide, elopement, [...] Norma Zhang MD On 02/09/2018 04:15 PM [facility]
--- NOTE | 2025-06-21 00:27 | ER ---
Nurse's Notes [facility] Name: Miriam Fried Age: 45 yrs Sex: Female : 1980 Arrival Date: 06/20/2025 Time: 22:57 Bed 14 Private MD: Diagnosis: Acute anxiety secondary to cannabis ingestion Presentation: 06/20 23:00 Chief complaint: Patient states: i smoked weed and nikko had AFIB, i have dry mouth, my lg3 PTSD is back. Coronavirus screen: Client denies travel out of the [place] in the last 14 days. At this time, the client does not indicate any symptoms associated with coronavirus-19. Ebola Screen: No symptoms or risks identified at this time. Initial Sepsis Screen: Does the patient meet any 2 criteria? No. Patient's initial sepsis screen is negative. Does the patient have a suspected source of infection? No. Patient's initial sepsis screen is negative. Risk Assessment: Do you want to hurt yourself or someone else? Patient reports no desire to harm self or others. Onset of symptoms was June 20, 2025. 23:00 Method Of Arrival: EMS: [facility] lg3 23:00 Acuity: REGINA 4 lg3 Triage Assessment: 23:21 General: Appears in no apparent distress. unkempt, Behavior is cooperative, anxious. lg3 Pain: Denies pain. EENT: No deficits noted. No signs and/or symptoms were reported regarding the EENT system. Neuro: No deficits noted. Rogel Agitation-Sedation Scale (RASS): 0 - Alert and Calm Level of Consciousness is awake, alert, obeys commands, Oriented to person, place, time, situation. Cardiovascular: No deficits noted. Denies chest pain, shortness of breath, Capillary refill < 3 seconds Clubbing of nail beds is absent JVD is absent Patient's skin is warm and dry. Respiratory: No deficits noted. Airway is patent Respiratory effort is even, unlabored, Respiratory pattern is regular, symmetrical. GI: No deficits noted. No signs and/or symptoms were reported involving the gastrointestinal system. : No signs and/or symptoms were reported regarding the genitourinary system. Derm: No deficits noted. No signs and/or symptoms reported regarding the dermatologic system. Skin is intact, is healthy with good turgor, Skin is dry, Skin is normal, Skin temperature is warm. Musculoskeletal: No deficits noted. No signs and/or symptoms reported regarding the musculoskeletal system. Circulation, motion, and sensation intact. Range of motion: intact in all extremities. 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 - Infectious Disease History:: Denies. - Social history:: Smoking status: Patient reports the use of cigarette tobacco products, smokes one pack cigarettes per day. Reported history of juuling and/or vaping. Patient uses alcohol, occasionally. street drugs, marijuana, Methamphetamine (Meth). - Family history:: not pertinent. Screenin:23 [facility] ED Fall Risk Assessment (Adult) History of falling in the last 3 months, lg3 including since admission No falls in past 3 months (0 pts) Confusion or Disorientation No (0 pts) Intoxicated or Sedated Yes (3 pts) Impaired Gait No (0 pts) Mobility Assist Device Used No (0 pt) Altered Elimination No (0 pt) Score/Fall Risk Level 3 or more points = High Risk Oriented to surroundings, Maintained a safe environment, Educated pt \\T\\ family on fall prevention, incl call for assistance when getting out of bed, Assessed \\T\\ reinforced patient's understanding of fall precautions. Abuse screen: Denies threats or abuse. Denies injuries from another. Nutritional screening: No deficits noted. Tuberculosis screening: No symptoms or risk factors identified. Assessment: 23:23 General: see triage assessment. lg3 23:24 General: pt refusing all interventions at this time. Pt requesting to be "watched" for lg3 a while. provider notified . 06/21 00:22 Reassessment: Patient appears in no apparent distress at this time. No changes from lg3 previously documented assessment. Patient and/or family updated on plan of care and expected duration. Pain level reassessed. Patient is alert, oriented x 3, equal unlabored respirations, skin warm/dry/pink. Patient states feeling better. Patient states symptoms have improved. 01:05 Reassessment: Patient appears in no apparent distress at this time. No changes from lg3 previously documented assessment. Patient and/or family updated on plan of care and expected duration. Pain level reassessed. Patient is alert, oriented x 3, equal unlabored respirations, skin warm/dry/pink. Patient states feeling better. Patient states symptoms have improved. Vital Signs: 06/20 23:00 BP 127 / 69; Pulse 111; Resp 15 S; Temp 98.2(O); Pulse Ox 96% on R/A; Weight 68.04 kg lg3 (R); Height 5 ft. 4 in. ; Pain 0/10; 23:49 BP 120 / 66; Pulse 93; Resp 16 S; Pulse Ox 97% on R/A; lg3 06/21 00:22 BP 124 / 71; Pulse 91; Resp 17 S; Pulse Ox 98% on R/A; lg3 01:06 BP 119 / 78; Pulse 89; Resp 16 S; Pulse Ox 98% on R/A; lg3 06/20 23:00 Body Mass Index 25.75 (68.04 kg, 162.56 cm) lg3 06/20 23:00 Pain Scale: Adult lg3 Mary Coma Score: 18:53 Eye Response: spontaneous(4). Motor Response: obeys commands(6). Verbal Response: sp4 oriented(5). Total: 15. ED Course: 06/20 23:00 Patient arrived in ED. kmf 23:01 Angel Kay MD is Attending Physician. sp4 23:03 Yolanda Reyes RN is Primary Nurse. lg3 23:21 Triage completed. lg3 23:21 Arm band placed on right wrist. lg3 23:23 Patient has correct armband on for positive identification. Bed in low position. Call lg3 light in reach. Side rails up X 1. Client placed on continuous cardiac and pulse oximetry monitoring. NIBP monitoring applied. Door closed. Noise minimized. Warm blanket given. Pillow given. 06/21 01:06 No provider procedures requiring assistance completed. Patient did not have IV access lg3 during this emergency room visit. Administered Medications: No medications were administered Medication: 06/20 23:23 VIS not applicable for this client. lg3 Outcome: 06/21 00:26 Discharge ordered by . sp4 01:06 Discharged to home ambulatory, lg3 01:06 Condition: stable 01:06 Discharge instructions given to patient, Instructed on discharge instructions, follow up and referral plans. Demonstrated understanding of instructions, follow-up care, 01:07 Patient left the ED. lg3 Signatures: Yolanda Reyes RN RN lg3 Angel Kay MD MD sp4 Pam [facility]
--- NOTE | 2025-06-21 00:27 | EDPHYS ---
Physician Documentation [facility] Name: Miriam Fried Age: 45 yrs Sex: Female : 1980 Arrival Date: 06/20/2025 Time: 22:57 Bed 14 Private MD: ED Physician Angel Kay HPI: 06/20 23:01 This 45 yrs old Female presents to ER via Unassigned with complaints of sp4 feeling unwell after smoke . 06/21 18:53 45-year-old female presents with anxiety after smoking cannabis. 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 - Infectious Disease History:: Denies. - Social history:: Smoking status: Patient reports the use of cigarette tobacco products, smokes one pack cigarettes per day. Reported history of juuling and/or vaping. Patient uses alcohol, occasionally. street drugs, marijuana, Methamphetamine (Meth). - Family history:: not pertinent. ROS: 06/21 18:53 Constitutional: Negative for fever, chills, and weight loss, sp4 All other systems are negative, Exam: 18:53 Constitutional: This is a well developed, well nourished patient who is awake, alert, sp4 and in no acute distress. Head/Face: light, extra-ocular motions intact. Lids and lashes normal. Conjunctiva and sclera are not injected. Cornea within normal limits. Periorbital areas with no swelling, redness, or edema. ENT: Nares patent. No nasal discharge, no septal abnormalities noted. Tympanic membranes are normal and external auditory canals are clear. Oropharynx with no redness, swelling, or masses, exudates, or evidence of obstruction, uvula midline. Mucous membranes moist. Neck: Trachea midline, no thyromegaly or masses palpated, and no cervical lymphadenopathy. Supple, full range of motion without nuchal rigidity, or vertebral point tenderness. Chest/axilla: Normal chest wall appearance and motion. Nontender with no deformity. No lesions are appreciated. Cardiovascular: Regular rate and rhythm with a normal S1 and S2. No gallops, murmurs, or rubs. No pulse deficits. Respiratory: Lungs have equal breath sounds bilaterally, clear to auscultation and percussion. No rales, rhonchi or wheezes noted. No increased work of breathing, no retractions or nasal flaring. Abdomen/GI: Soft, with normal bowel sounds. No distension or tympany. No guarding or rebound. No evidence of tenderness throughout. Back: No spinal tenderness. No costovertebral tenderness. Skin: Warm, dry with normal turgor. Normal color with no rashes, no lesions, and no evidence of cellulitis. MS/ Extremity: Pulses equal, no cyanosis. Neurovascular intact. Full, normal range of motion. Neuro: Awake and alert, GCS 15, oriented to person, place, time, and situation. Cranial nerves II-XII grossly intact. Motor strength 5/5 in all extremities. Sensory grossly intact. Psych: Awake, alert, with orientation to person, place and time. Behavior, mood, and affect are within normal limits Vital Signs: 06/20 23:00 BP 127 / 69; Pulse 111; Resp 15 S; Temp 98.2(O); Pulse Ox 96% on R/A; Weight 68.04 kg lg3 (R); Height 5 ft. 4 in. ; Pain 0/10; 23:49 BP 120 / 66; Pulse 93; Resp 16 S; Pulse Ox 97% on R/A; lg3 20 00:22 BP 124 / 71; Pulse 91; Resp 17 S; Pulse Ox 98% on R/A; lg3 01:06 BP 119 / 78; Pulse 89; Resp 16 S; Pulse Ox 98% on R/A; lg3 06/20 23:00 Body Mass Index 25.75 (68.04 kg, 162.56 cm) lg3 06/20 23:00 Pain Scale: Adult lg3 Mary Coma Score: 18:53 Eye Response: spontaneous(4). Motor Response: obeys commands(6). Verbal Response: sp4 oriented(5). Total: 15. MDM: 06/20 23:02 Medical Screening Exam initiated sp4 06/21 18:54 Differential diagnosis: cardiac arrhythmia, idiopathic dizziness, , syncope, sp4 vertigo. Data reviewed: vital signs, nurses notes, EMS record, old medical records. ED course: Patient declined EKG and labs. Patient was monitored and found to be stable. Anxiety dissipated. Patient stable for discharge home. Will recommend to discontinue cannabis abuse. Administered Medications: No medications were administered Disposition: 18:54 Chart complete. sp4 Disposition Summary: 06/21/25 00:26 Discharge Ordered Notes: Location: Home sp4 Problem: new sp4 Symptoms: have improved sp4 Condition: Stable sp4 Diagnosis - Acute anxiety secondary to cannabis ingestion sp4 Followup: sp4 - With: Private Physician - When: As needed - Reason: Discharge Instructions: - Discharge Summary Sheet sp4 - Cannabis Use Disorder sp4 Forms: - Patient Portal Instructions sp4 Signatures: Yolanda Reyes RN RN lg3 Angel Kay MD MD sp4
[2025-06-21 04:54] VITALS: TEMP 98.2
[2025-06-21 04:57] VITALS: O2SAT 98
[2025-06-21 04:59] VITALS: BP 119/78
== END 2025-06-21 01:07 | disposition home or self-care (01) ==
LOC: ER 22:57
DX: T40.711A Poisoning by cannabis, accidental (unintentional), initial encounter (principal)

== ENCOUNTER 2025-07-19 02:10 | Emergency (ER) | payer SELFPAY ==
--- OUTSIDE RECORDS SUMMARY | 2025-07-19 02:19 | XMS REPORT | Continuity of Care Document ---
Author Name Unknown Address [address] [facility] [place] [address] [place] [address] Organization [facility] [place] Address [address] [facility] [address] [place] [address] Care Team Providers Care Skip Operator Name Role Phone Shana Jacqueline AGUIAR Primary Care Physician Sherman Collazo Attending Clinician Unavailable Rj Diez Attending Clinician Unavailab Rj Hardwick Attending Clinician Unavailab DELLA Boland Attending Clinician Unavailable MIGUEL A NATH Attending Clinician Unavailable MIGUEL A NATH Attending Clinician Unavailable Argelia Isidro NP Attending Clinician [phone] Bala Della GUNN Attending Clinician WILLIAM TOVAR Attending Clinician Unavail able BILLIE HUDSON Attending Clinician Unavailable BILLIE HUDSON Attending Clinician Unavailable Oswaldo Davis MD Attending Clinician OSWALDO DAVIS Attending Clinician UnavailOSWALDO Del Rosario Attending Clinician UnavailMARI Carson Attending Clinician Unavailable Mari Herndon MD Attending Clinician BRIGITTE JIMENEZ Attending Clinician Unavailab Brigitte Strickland Attending Clinician + Alisa Spann RN Attending Clinician Unavailabl e [email or web address] Attending Clinician Unavaila JYOTI Pavon Attending Clinician Unavailable SEPIDEH PALMER Attending Clinician Unavailab Sepideh Martini DO Attending Clinician + Doctor Unassigned, [place] Attending Clinician U GAGE Bowden Attending Clinician Unavailable Jeanette SMILEY, Gage Holloway Attending Clinician [phone] Ultrasound, Hood-m Attending Clinician Unavailchino Campos MD, Cheikh Zamudio Attending Clinician [phone] Fellow, Luiz [facility] Attending Clinician Un available Hussein SMILEY, Morro Hoover Attending Clinician + Ellis SMILEY, Olga Lidia Smith Attending Clinician + Sanjana Sierra PA-C Attending Clinician [phone] Edson Emanuel Attending Clinician + Edson DELACRUZ Attending Clinician Unavailable Neville, [place] [facility] Attending Clinician Unamaxx Mark MD, Porter Bar Attending Clinician + NORMA ZHANG M.D., NORMA Smith M.D. Attendin g Clinician Unavailable GAGE REID Admitting Clinician Unavailable Sherman Collazo Admitting Clinician Unavailable Rj Diez Admitting Clinician Unavailab le [email or web address] Admitting Clinician Unavailchino Reid MD, Gage Holloway Admitting Clinician [phone] NORMA ZHANG M.D., NORMA Smith Admitting Clin ician Unavailable Payers Payer Name Policy Type Policy Number Effective Date Expirati on Date Source [employer] MEDICAID [id number] 2020 00:00:00 [facility] [id number] 2025 00:00:00 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, without psychotic features Disease Active 03-15 00:00: 00 [facility] History of cardiac arrest History of cardiac arrest Disease Active 03-15 00:00: 00 [facility] Anxiety disorder, unspecifie d type Anxiety disorder, unspecifie d type Disease Active 03-15 00:00: 00 [facility] History of drug abuse History of drug abuse Disease Active 03-15 00:00: 00 [facility] History of herpes genitalis History of herpes genitalis Disease Active 03-15 00:00: 00 [facility] Smoking Smoking Disease Active 03-15 00:00: 00 [facility] History of drug abuse History of drug abuse Disease Active 03-15 00:00: 00 [facility] Tobacco use disorder Tobacco use disorder Disease Active 03-15 00:00: 00 [facility] 39 weeks gestation of 39 weeks gestation of Disease Resolve d 2019-11 00:00: 00 2025-03-07 00:00:00 2025-03-07 14:19:21 [facility] QT prolongati on QT prolongati on Disease Resolve d 2019-11 00:00: 00 2025-03-07 00:00:00 2025-03-07 14:19:24 [facility] Insufficie nt care in third trimester Insufficie nt care in third trimester Disease Resolve d 2019-11 00:00: 00 2025-03-07 00:00:00 2025-03-07 14:19:25 [facility] Supervisio n of high risk in third trimester Supervisio n of high risk in third trimester Disease Resolve d 03-15 00:00: 00 2025-03-07 00:00:00 2025-03-07 14:19:38 [facility] Previous section Previous section Disease Resolve d 03-15 00:00: 00 2025-03-07 00:00:00 2025-03-07 14:19:33 [facility] Medication exposure during first trimester of Medication exposure during first trimester of Disease Resolve d 03-15 00:00: 00 2025-03-07 00:00:00 2025-03-07 14:19:00 [facility] Abdominal pain, epigastric Abdominal pain, epigastric Disease Resolve d 4-27 00:00: 00 2020-03-15 00:00:00 2020-03-15 11:21:38 [facility] Allergies, Adverse Reactions, Alerts Allergy Name Allergy Type Status Severity Reaction(s) Onset Date Inactive Date Treating Clinician Comments Source PENICILL IN DRUG INGREDI Active Unknown-Cmnt 04-09 00:00: 00 [facility] SULFAMET HOXAZOLE -TRIMETH OPRIM DRUG Active Swelling 04-09 00:00: 00 [facility] Sulfamet hoxazole -Trimeth oprim Propensi ty to adverse reaction s Active Swelling 04-09 00:00: 00 [facility] Penicill in Propensi ty to adverse reaction s Active Unknown - See comments 04-09 00:00: 00 [facility] morphine DA Active SV 12-22 00:00: 00 [facility] morphine DA Active SV "HEART STOPPED" 12-22 00:00: 00 [facility] MORPHINE DRUG INGREDI Active Unknown-Cmnt 2010-11 00:00: 00 [facility] Morphine Propensi ty to adverse reaction s Active Unknown - See comments 2010-11 00:00: 00 Per patient she went into cardiac arrest after receiving morphine at the hospital March 2011 [facility] morphine Drug Active [facility] morphine Drug Active [facility] morphine Drug Active [facility] morphine Drug Active [facility] morphine Drug Active [facility] morphine Drug Active [facility] morphine Drug Active [facility] morphine Drug Active [facility] morphine Drug Active [facility] morphine Drug Active [facility] morphine Drug Active [facility] morphine Drug Active [facility] morphine Drug Active [facility] Social History Social Habit Start Date Stop Date Quantity Comments Source ASSERTION 2019-12-22 00:00:00 Not [facility] of tobacco use Cigarette Smoker [facility] Alcoholic beverage intake 2025-04-02 00:00:00 2025-04-02 00:00:00 Current drinker of alcohol (finding) [facility] History of Social function 2025-03-07 00:00:00 2025-03-07 00:00:00 [facility] Tobacco use and exposure 2024-05-26 00:00:00 2024-05-26 00:00:00 Smokeless tobacco non-user [facility] Alcohol intake 2023-05-01 00:00:00 2023-05-01 00:00:00 Current drinker of alcohol (finding) [facility] Exposure to SARS-CoV-2 (event) 2023-01-03 00:00:00 2023-01-13 21:35:00 Not sure [facility] Cigarettes smoked current (pack per day) - Reported 2020-03-15 00:00:00 2020-03-15 00:00:00 [facility] Sex assigned at 1980 00:00:00 1980 00:00:00 [facility] Smoking Status Start Date Stop Date Source Smokes tobacco daily 2024-05-26 00:00:00 [facility] Medications Ordered Medication Name Filled Medication Name Start Date Stop Date Current Medication? Ordering Clinician Indication Dosage Frequency Signature (SIG) Comments Components Source nicotine (NICODERM) 21 mg/24 hr patch 1 Patch 04-03 08:15: 00 Yes 1{patch } 1 Patch, Topical, Administer over 24 Hours, Q24H, First dose on Thu04/03/25 at 0315, Until Discontinu ed, Routine [facility] diphenhydrA MINE (BENADRYL) tablet 25 mg 04-03 08:15: 00 04-03 08:03 :00 No 25mg 25 mg, Oral, ONCE, 1 dose, On 04/03/25 at 0315, [facility] gabapentin (NEURONTIN) capsule 300 mg 04-03 01:00: 00 Yes 300mg 300 mg, Oral, TID, First dose on 04/02/25 at 1999, Until Discontinu ed, [facility] FLUoxetine (PROZAC) capsule 20 mg 04-03 01:00: 00 Yes 20mg 20 mg, Oral, DAILY, First dose on 04/02/25 at 1999, Until Discontinu ed, Routine [facility] ARIPiprazol e (ABILIFY) tablet 10 mg ARIPiprazol e (ABILIFY) tablet 10 mg 04-03 01:00: 00 Yes 10mg 10 mg, Oral, DAILY, First dose on 04/02/25 at 2000, Until Discontinu ed, Routine [facility] LORazepam (ATIVAN) tablet 1 mg [...] 500 mg tablet 03-13 00:00: 00 Yes [id number] 500mg Take 1 tablet by mouth in the morning and 1 tablet in the evening. [facility] metoprolol succinate ER 50 mg [...] Site: Urine, Duration of Therapy: Once (ED) [facility] ALPRAZolam (XANAX) tablet 1 mg 04-15 18:45: 00 04-15 18:39 :00 No 1mg 1 mg, Oral, ONCE, 1 dose, On Thu04/15/24 at 1345, CHRISTY [facility] NaCl 0.9% (NS) bolus infusion 1,000 mL 04-15 17:45: 00 04-15 18:48 :00 No 1000mL at 999 mL/hr, 1,000 mL, IV Piggyback, ONCE, 1 dose, On Thu04/15/24 at 1245, STAT [facility] ciprofloxac in HCl 500 mg tablet 04-15 00:00: 00 04-23 04:59 :00 No [id number] 500mg Take 1 tablet by mouth in the morning and 1 tablet in the evening. Do all this for 7 days. [facility] alprazolam 2 mg tablet 5-10 [...] Urine
D uration of Therapy: 7 days [facility] NaCl 0.9% (NS) bolus infusion 1,000 mL 05-01 17:30: 00 05-01 18:14 :00 No 1000mL at 999 mL/hr, 1,000 mL, IV Infusion, ONCE, 1 dose, On Thu05/01/23 at 1230, [facility] ondansetron 4 mg disintegrat ing tablet 05-01 00:00: 00 Yes [id number] 4mg Take 1 tablet by mouth every 8 (eight) hours as needed for Nausea and Vomiting (N/V). [facility] sulfamethox azole-trime thoprim 800-160 mg per tablet 05-01 00:00: 00 05-07 04:59 :00 No [id number] 1{tbl} Take 1 tablet by mouth every 12 (twelve) hours for 5 days. [facility] TRIAZOLAM 02-10 00:00: 00 Yes Freddy Castillo AMPHET/DEXT R 15MG Tablets 04 00:00: 00 Yes Freddy Castillo ARIPIPRAZOL E 01-29 00:00: 00 Yes Freddy Castillo OSELTAMIVIR - 00:00: 00 Yes Freddy Castillo GABAPENTIN 2023-0 3-09 00:00: 00 Yes Freddy Castillo FLUOXETINE 3-0 3-06 00:00: 00 Yes Freddy Castillo TAKE [...] 2mg Take 2 mg by mouth daily. [facility] SERTraline (ZOLOFT) 50 mg tablet 2019-11 01:27: 56 Yes 50mg Take 50 mg by mouth daily. [facility] D5W-LR IV infusion 1,000 mL 2019-11 00:45: 00 Yes 1000mL at 125 mL/hr, IV Infusion, CONTINUOUS , Starting Thu09/12/20 at 1845, Until Discontinu ed, Routine [facility] risperiDONE 2 mg tablet 2019-11 19:27: 56 Yes 2mg Take 2 mg by mouth daily. [facility] SERTraline (ZOLOFT) 50 mg tablet 2019-11 19:27: 56 Yes 50mg Take 50 mg by mouth daily. [facility] risperiDONE 2 mg tablet 2019-11 01:35: 11 Yes 2mg Take 2 mg by mouth daily. [facility] SERTraline (ZOLOFT) 50 mg tablet 2019-11 01:35: 11 Yes 50mg Take 50 mg by mouth daily. [facility] D5W-LR IV infusion 1,000 mL 2019-11 00:45: 00 Yes 1000mL at 125 mL/hr, IV Infusion, CONTINUOUS , Starting 09/10/20 at 1845, Until Discontinu ed, Routine [facility] PNV 102-iron-fo late 1-dss-dha (VITAFOL FE+, WITH DOCUSATE,) 90 mg iron-1 mg -50 mg-200 mg Cap 03-15 00:00: 00 Yes [id number] Take 1 TAB-CAP/M2 by mouth daily. [facility] PNV 102-iron-fo late 1-dss-dha (VITAFOL FE+, WITH DOCUSATE,) 90 mg iron-1 mg -50 mg-200 mg Cap 03-15 00:00: 00 Yes [id number] Take 1 TAB-CAP/M2 by mouth daily. [facility] LORazepam (ATIVAN) tablet 2 mg 06-23 02:00: 00 06-23 00:55 :00 No 2mg 2 mg, Oral, ONCE, 1 dose, Thu06/22/19 at 2100, CHRISTY [facility] gabapentin 300 mg capsule 06-22 00:00: 00 07-23 04:59 :00 No [id number] 300mg Take 1 capsule by mouth 2 (two) times daily for 30 days. [facility] Zoloft 50 mg tablet 12-18 00:00: 00 Yes 1mg Freddy Sneha Jonathan hydroxyzine HCl 50 mg tablet 12-18 00:00: 00 Yes 1mg Freddy Castillo KCL (K-DUR) 20 mEq tablet 2010-11 00:00: 00 03-15 00:00 :00 No 40meq Take 2 Tabs by mouth daily. [facility] metoprolol tartrate (LOPRESSOR) 25 mg tablet 2010-11 00:00: 00 03-15 00:00 :00 No 12.5mg Take 0.5 Tabs by mouth 2 (two) times daily. [facility] magnesium oxide (MAG-OX 400) 400 mg tablet 2010-11 00:00: 00 03-15 00:00 :00 No 800mg Take 2 Tabs by mouth 3 (three) times daily. [facility] FLUoxetine (PROZAC) 20 mg capsule 06-06 00:00: 09-10 00:00 :00 No 20mg Take 1 Cap by mouth daily. [facility] clonazePAM (KLONOPIN) 0.5 mg tablet 06-06 00:00: 00 03-15 00:00 :00 No .5mg Take 1 Tab by mouth 3 (three) times daily. [facility] calcium carbonate (OSCAL-500) 500 mg (1,250 mg) tablet 03-14 00:00: 00 03-15 00:00 :00 No 500mg Take 1 Tab by mouth 3 (three) times daily with meals. [facility] ferrous sulfate 325 mg (65 mg Iron) tablet 03-14 00:00: 00 03-15 00:00 :00 No 325mg Take 1 Tab by mouth 3 (three) times daily with meals. [facility] nicotine (NICODERM) 21 mg/24 hr patch 03-14 00:00: 00 03-15 00:00 :00 No 1{patch } Apply 1 Patch to area(s) every 24 (twenty-fo ur) hours. [facility] thiamine (VITAMIN B1) 100 mg tablet 03-14 00:00: 00 03-15 00:00 :00 No 100mg Take 1 Tab by mouth daily. [facility] vitamin w/FA ( RX OR GENERIC EQUIVALENT) tablet 03-14 00:00: 00 03-15 00:00 :00 No 1{tbl} Take 1 Tab by mouth daily. [facility] Vital Signs Vital Name Observation Time Observation Value Comments S ource Height/Length Measured 2020-07-25 11:28:48 Systolic blood pressure 2025-04-03 00:17:00 125 mm[Hg] [facility] Diastolic blood pressure 2025-04-03 00:17:00 69 mm[Hg] [facility] Heart rate 2025-04-03 00:17:00 94 /min [facility] Body temperature 2025-04-03 00:17:00 37.33 Lien [facility] Respiratory rate 2025-04-03 00:17:00 16 /min [facility] Body height 2025-04-03 00:17:00 152.4 cm [facility] Body weight 2025-04-03 00:17:00 72.576 kg [facility] BMI 2025-04-03 00:17:00 31.25 kg/m2 [facility] Oxygen saturation in Arterial blood by Pulse oximetry 2025-04-03 00:17:00 96 /min [facility] Systolic blood pressure 2025-04-01 04:04:00 132 mm[Hg] [facility] Diastolic blood pressure 2025-04-01 04:04:00 79 mm[Hg] [facility] Heart rate 2025-04-01 04:04:00 109 /min [facility] Body temperature 2025-04-01 04:04:00 37.5 Lien [facility] Respiratory rate 2025-04-01 04:04:00 25 /min [facility] Body height 2025-04-01 04:04:00 152.4 cm [facility] Body weight 2025-04-01 04:04:00 72.576 kg [facility] BMI 2025-04-01 04:04:00 31.25 kg/m2 [facility] Oxygen saturation in Arterial blood by Pulse oximetry 2025-04-01 04:04:00 96 /min [facility] Systolic blood pressure 2025-03-09 14:30:00 117 mm[Hg] [facility] Diastolic blood pressure 2025-03-09 14:30:00 58 mm[Hg] [facility] Heart rate 2025-03-09 14:30:00 80 /min [facility] Body temperature 2025-03-09 14:30:00 36.56 Lien [facility] Respiratory rate 2025-03-09 14:30:00 18 /min [facility] Body height 2025-03-09 14:30:00 152.4 cm [facility] Body weight 2025-03-09 14:30:00 73.171 kg [facility] BMI 2025-03-09 14:30:00 31.50 kg/m2 [facility] Systolic blood pressure 2025-03-07 18:46:00 118 mm[Hg] [facility] Diastolic blood pressure 2025-03-07 18:46:00 82 mm[Hg] [facility] Heart rate 2025-03-07 18:41:00 67 /min [facility] Body temperature 2025-03-07 18:41:00 35.17 Lien [facility] Respiratory rate 2025-03-07 18:41:00 18 /min [facility] Body height 2025-03-07 18:41:00 152.4 cm [facility] Body weight 2025-03-07 18:41:00 73.993 kg [facility] BMI 2025-03-07 18:41:00 31.86 kg/m2 [facility] Systolic blood pressure 2024-04-15 18:30:00 127 mm[Hg] [facility] Diastolic blood pressure 2024-04-15 18:30:00 77 mm[Hg] [facility] Respiratory rate 2024-04-15 18:30:00 20 /min [facility] Oxygen saturation in Arterial blood by Pulse oximetry 2024-04-15 18:30:00 98 /min [facility] Heart rate 2024-04-15 17:30:00 100 /min [facility] Body height 2024-04-15 16:39:00 152.4 cm [facility] Body weight 2024-04-15 16:39:00 69.854 kg [facility] BMI 2024-04-15 16:39:00 30.08 kg/m2 [facility] Body temperature 2024-04-15 16:35:00 36.56 Lien [facility] Systolic blood pressure 2024-04-09 15:00:00 128 mm[Hg] [facility] Diastolic blood pressure 2024-04-09 15:00:00 69 mm[Hg] [facility] Heart rate 2024-04-09 15:00:00 116 /min [facility] Respiratory rate 2024-04-09 15:00:00 16 /min [facility] Oxygen saturation in Arterial blood by Pulse oximetry 2024-04-09 15:00:00 100 /min [facility] Body temperature 2024-04-09 14:34:00 37 Lien [facility] Body height 2024-04-09 14:34:00 162.6 cm [facility] Body weight 2024-04-09 14:34:00 69.854 kg [facility] BMI 2024-04-09 14:34:00 26.43 kg/m2 [facility] Systolic blood pressure 2023-05-01 18:15:22 148 mm[Hg] [facility] Diastolic blood pressure 2023-05-01 18:15:22 73 mm[Hg] [facility] Heart rate 2023-05-01 18:15:22 93 /min [facility] Respiratory rate 2023-05-01 18:15:22 16 /min [facility] Oxygen saturation in Arterial blood by Pulse oximetry 2023-05-01 18:15:22 100 /min [facility] Body temperature 2023-05-01 16:33:00 36.44 Lien [facility] Body weight 2023-05-01 16:33:00 90.719 kg [facility] BMI 2023-05-01 16:33:00 34.33 kg/m2 [facility] Systolic blood pressure 2023-01-14 02:37:00 133 mm[Hg] [facility] Diastolic blood pressure 2023-01-14 02:37:00 65 mm[Hg] [facility] Heart rate 2023-01-14 02:37:00 89 /min [facility] Body temperature 2023-01-14 02:37:00 37.44 Lien [facility] Respiratory rate 2023-01-14 02:37:00 18 /min [facility] Body height 2023-01-14 02:37:00 162.6 cm [facility] Body weight 2023-01-14 02:37:00 90.719 kg [facility] BMI 2023-01-14 02:37:00 34.33 kg/m2 [facility] Oxygen saturation in Arterial blood by Pulse oximetry 2023-01-14 02:37:00 96 /min [facility] Systolic blood pressure 2020-09-12 23:45:00 128 mm[Hg] [facility] Diastolic blood pressure 2020-09-12 23:45:00 66 mm[Hg] [facility] Heart rate 2020-09-12 23:45:00 97 /min [facility] Body temperature 2020-09-12 23:45:00 36.61 Lien [facility] Respiratory rate 2020-09-12 21:30:00 18 /min [facility] Oxygen saturation in Arterial blood by Pulse oximetry 2020-09-12 21:30:00 92 /min [facility] Body height 2020-09-12 20:00:00 162.6 cm [facility] Body weight 2020-09-12 20:00:00 90.719 kg [facility] BMI 2020-09-12 20:00:00 34.33 kg/m2 [facility] Systolic blood pressure 2020-09-12 23:45:00 128 mm[Hg] [facility] Diastolic blood pressure 2020-09-12 23:45:00 66 mm[Hg] [facility] Heart rate 2020-09-12 23:45:00 97 /min [facility] Body temperature 2020-09-12 23:45:00 36.61 Lien [facility] Respiratory rate 2020-09-12 21:30:00 18 /min [facility] Oxygen saturation in Arterial blood by Pulse oximetry 2020-09-12 21:30:00 92 /min [facility] Body height 2020-09-12 20:00:00 162.6 cm [facility] Body weight 2020-09-12 20:00:00 90.719 kg [facility] BMI 2020-09-12 20:00:00 34.33 kg/m2 [facility] Heart rate 2020-09-11 00:51:00 82 /min [facility] Oxygen saturation in Arterial blood by Pulse oximetry 2020-09-11 00:51:00 98 /min [facility] Systolic blood pressure 2020-09-11 00:30:00 91 mm[Hg] [facility] Diastolic blood pressure 2020-09-11 00:30:00 73 mm[Hg] [facility] Body temperature 2020-09-10 23:46:00 36.5 Lien [facility] Respiratory rate 2020-09-10 23:46:00 18 /min [facility] Body height 2020-09-10 23:46:00 162.6 cm [facility] Body weight 2020-09-10 23:46:00 90.992 kg [facility] BMI 2020-09-10 23:46:00 34.43 kg/m2 [facility] Systolic blood pressure 2020-09-10 22:35:00 133 mm[Hg] [facility] Diastolic blood pressure 2020-09-10 22:35:00 72 mm[Hg] [facility] Heart rate 2020-09-10 22:27:00 104 /min [facility] Body temperature 2020-09-10 22:27:00 36.72 Lien [facility] Respiratory rate 2020-09-10 22:27:00 18 /min [facility] Body height 2020-09-10 22:27:00 162.6 cm [facility] Body weight 2020-09-10 22:27:00 90.992 kg [facility] BMI 2020-09-10 22:27:00 34.43 kg/m2 [facility] Height/Length Measured 2021-11-19 12:39:49 162.56 cm Weight [...] Systolic blood pressure 2020-03-15 13:32:00 129 mm[Hg] [facility] Diastolic blood pressure 2020-03-15 13:32:00 71 mm[Hg] [facility] Heart rate 2020-03-15 13:32:00 85 /min [facility] Body temperature 2020-03-15 13:32:00 36.78 Lien [facility] Respiratory rate 2020-03-15 13:32:00 18 /min [facility] Body height 2020-03-15 13:32:00 162.6 cm [facility] Body weight 2020-03-15 13:32:00 78.926 kg [facility] BMI 2020-03-15 13:32:00 29.87 kg/m2 [facility] Systolic blood pressure 2020-03-07 01:00:00 114 mm[Hg] [facility] Diastolic blood pressure 2020-03-07 01:00:00 55 mm[Hg] [facility] Heart rate 2020-03-07 01:00:00 99 /min [facility] Body temperature 2020-03-07 01:00:00 36.67 Lien [facility] Respiratory rate 2020-03-07 01:00:00 20 /min [facility] Oxygen saturation in Arterial blood by Pulse oximetry 2020-03-07 01:00:00 98 /min [facility] Body weight 2020-03-06 23:00:00 68.04 kg [facility] BMI 2020-03-06 23:00:00 25.75 kg/m2 [facility] Body height 2020-03-06 22:57:00 162.6 cm [facility] Systolic blood pressure 2019-06-23 02:08:00 146 mm[Hg] [facility] Diastolic blood pressure 2019-06-23 02:08:00 89 mm[Hg] [facility] Heart rate 2019-06-23 02:08:00 130 /min made aware [facility] Body temperature 2019-06-23 02:08:00 36.72 Lien [facility] Respiratory rate 2019-06-23 02:08:00 18 /min [facility] Oxygen saturation in Arterial blood by Pulse oximetry 2019-06-23 02:08:00 95 /min [facility] Body weight 2019-06-23 00:05:00 68.04 kg [facility] BMI 2019-06-23 00:05:00 25.75 kg/m2 [facility] Systolic blood pressure 2019-06-10 19:43:00 117 mm[Hg] [facility] Diastolic blood pressure 2019-06-10 19:43:00 66 mm[Hg] [facility] Heart rate 2019-06-10 19:43:00 110 /min [facility] Body temperature 2019-06-10 19:43:00 37.06 Lien [facility] Respiratory rate 2019-06-10 19:43:00 18 /min [facility] Body weight 2019-06-10 19:43:00 63.504 kg [facility] BMI 2019-06-10 19:43:00 24.03 kg/m2 [facility] Oxygen saturation in Arterial blood by Pulse oximetry 2019-06-10 19:43:00 97 /min [facility] BP Systolic 2025-02-22 14:26:00 136 mm[Hg] Freddy [...] 17.00 /min Freddy F Jonathan BP Systolic 2021-05-28 [...] 2021-05-28 11:19:00 Freddy F Jonathan BP Systolic 2017-12-18 11:50:00 [...] Clinician Source URINALYSIS 2025-04-03 02:26:00 Lucio Box [facility] CREATINE KINASE 2025-04-03 00:37:00 Lucio Box [facility] COMP. METABOLIC PANEL (24478) 2025-04-03 00:37:00 Lucio Box [facility] SALICYLATE 2025-04-03 00:37:00 Lucio Box [facility] ETHANOL 2025-04-03 00:37:00 Lucio Box [facility] CBC WITH DIFF 2025-04-03 00:37:00 [facility] RSV COVID NAAT 2025-04-03 00:37:00 Lucio Box [facility] URINE DRUG (IMMUNOASSAY) - COMPREHENSIVE DRUG SCREEN W/O REFLEX 2025-04-03 00:37:00 Lucio Box [facility] FENTANYL (IMMUNOASSAY) 2025-04-03 00:37:00 Yaniv Box [facility] THYROID STIMULATING HORMONE 2025-04-01 04:38:00 Argelia Isidro [facility] COMP. METABOLIC PANEL (55903) 2025-04-01 04:38:00 Argelia Isidro [facility] SALICYLATE 2025-04-01 04:38:00 Argelia Isidro [facility] ETHANOL 2025-04-01 04:38:00 Argelia Isidro [facility] CBC WITH DIFF 2025-04-01 04:38:00 Argelia Isidro [facility] URINALYSIS 2025-04-01 04:38:00 Argelia Isidro [facility] INFLUENZA A/B RSV COVID NAAT 2025-04-01 04:38:00 Argelia Isidro [facility] URINE DRUG (IMMUNOASSAY) - COMPREHENSIVE DRUG SCREEN W/O REFLEX 2025-04-01 04:38:00 Argelia Isidro [facility] FENTANYL (IMMUNOASSAY) 2025-04-01 04:38:00 Rose Isidro ala [facility] HIV 1/2 AG-AB WITH REFLEX 2025-03-07 19:40:00 Della Mckenna [facility] PAP SMEAR-LIQUID BASED-CP 2025-03-07 19:40[facility] 2025-03-07 19:40:00 Della Mckenna [facility] GC & CHLAMYDIA AMPLIFIED ASSAY 2025-03-07 19:40:00 Della Mckenna [facility] HIGH RISK HPV-THIN PREP 2025-03-07 19:40:00 Yoshi Mckenna [facility] EKG-12 LEAD 2024-04-15 18:47:21 Mari Herndon [facility] POCT TEST 2024-04-15 17:03:00 Mari Herndon [facility] CREATINE KINASE 2024-04-15 17:02:00 Mari Herndon [facility] TROPONIN I 2024-04-15 17:02:00 Mari Herndon [facility] COMP. METABOLIC PANEL (70114) 2024-04-15 17:02:00 Mari Herndon [facility] ETHANOL 2024-04-15 17:02:00 Mari Herndon [facility] URINE DRUG (IMMUNOASSAY) - COMPREHENSIVE DRUG SCREEN 2024-04-15 17:02:00 Mari eHrndon [facility] CBC WITH DIFF 2024-04-15 17:02:00 Mari Herndon [facility] URINALYSIS 2024-04-15 17:02:00 Mari Herndon [facility] URINALYSIS 2023-05-01 17:17:00 Sepideh Palmer Un [facility] POCT TEST 2023-05-01 17:17:00 Latasha Palmer ra [facility] CREATINE KINASE 2023-05-01 16:44:00 Sepideh Palmer [facility] COMP. METABOLIC PANEL (07255) 2023-05-01 16:44:00 Sepideh Palmer [facility] CBC WITH DIFF 2023-05-01 16:44:00 Sepideh Palmer [facility] AUTHORIZATION FOR RELEASE OF PHI 2022-03-05 05:01:00 Doctor Unassigned, [place] [facility] [id number] 2020-09-13 00:00:00 [facility] ADC / LCC - DRUG SCREEN TRIAGE 2020-09-12 22:07:00 Gage Reid [facility] MAGNESIUM 2020-09-12 21:06:00 Gage Reid [facility] COMP. METABOLIC PANEL (36985) 2020-09-12 21:06:00 Gage Reid [facility] CBC WITH DIFF 2020-09-12 21:06:00 Gage Reid [facility] ECHO ROUTINE W/DOPPLER COLOR 2020-09-12 20:43:53 Talib Rivera [facility] CONSENT/REFUSAL FOR DIAGNOSIS AND TREATMENT 2020-09-12 19:55:29 Doctor Unassigned, [place] [facility] ASSIGNMENT OF BENEFITS 2020-09-12 19:39:54 Docto r Unassigned, [place] [facility] CBC WITH DIFF 2020-09-11 00:30:00 Gage Reid [facility] COVID-19 (ID NOW RAPID TESTING) 2020-09-11 00:15:00 Gage Reid [facility] CONSENT/REFUSAL FOR DIAGNOSIS AND TREATMENT 2020-09-10 23:34:19 Doctor Unassigned, [place] [facility] ASSIGNMENT OF BENEFITS 2020-09-10 23:33:44 Docto r Unassigned, [place] [facility] GROUP B STREPTOCOCCUS BY PCR 2020-09-10 22:45:00 Gage Reid [facility] L&D VISIT (NON-DELIVERED) 2020-09-10 06:01:00 Doctor Unassigned, [place] [facility] EXTERNAL PROVIDER RECORDS 2020-04-18 05:01:00 Doctor Unassigned, [place] [facility] ADC / LCC - DRUG SCREEN TRIAGE 2020-03-15 14:26:00 Jeanette Gage Holloway [facility] ASSIGNMENT OF BENEFITS 2020-03-15 13:18:47 Docto r Unassigned, [place] [facility] POCT URINALYSIS W/O SPECIFIC GRAVITY 2020-03-15 00:00:00 Jeanette Gage Holloway [facility] POCT TEST 2020-03-07 00:38:00 Edson Delacruz [facility] MAGNESIUM 2020-03-06 23:24:[address] [facility] COMP. METABOLIC PANEL ([id number]) 2020-03-06 23:24:00 Edson Delacruz [facility] SALICYLATE 2020-03-06 23:24:[address] [facility] ETHANOL 2020-03-06 23:24:[address] [facility] CBC WITH DIFFERENTIAL 2020-03-06 23:24:00 Edson Delacruz [facility] URINALYSIS 2020-03-06 23:21:[address] [facility] ADC / LCC - DRUG SCREEN TRIAGE 2020-03-06 23:21:00 Edson Delacruz [facility] EKG-12 LEAD 2020-03-06 23:04:[address] [facility] NOTICE OF PRIVACY PRACTICES 2019-06-10 19:40:45 Doctor Unassigned, [place] [facility] CONSENT/REFUSAL FOR DIAGNOSIS AND TREATMENT 2019-06-10 19:34:31 Doctor Unassigned, [place] [facility] Encounters Start Date/Time End Date/Time Encounter Type Admission Type Attending [facility] Care Facility Care Department Encounter ID Source 2021-08-31 04:56:11 Outpatient P [facility] RACHEL [id number] [facility] 2021-08-31 04:16:00 Outpatient P [facility] RACHEL [id number] [facility] 2021-08-31 04:15:28 Outpatient P [facility] RACHEL [id number] [facility] 2020-09-13 22:39:00 Inpatient Sherman Fabian [facility] [id number] Harper [facility] 2020-07-25 10:46:00 Inpatient Rj Diez Thomas [facility] PSY [id number] [facility] 2025-06-06 14:15:00 2025-06-06 14:15:00 Outpatient DELLA MURRAY [facility] [id number] [facility] 2025-04-02 19:26:00 2025-04-03 06:50:00 Emergency X MIGUEL A NATH WAKILI [facility] ERT [id number] [facility] 2025-03-31 22:59:00 2025-04-01 01:03:00 Emergency X Argelia Isidro [facility] 1.2.840.114 350.1.13.10 4.2.7.2.686 [id number] [facility] 2025-03-22 07:18:11 2025-03-22 23:59:00 Hospital Encounter DELLA MURRAY [facility] [place] 1.2.840.114 350.1.13.10 4.2.7.2.686 [id number] [facility] 2025-03-22 08:20:26 2025-03-22 08:20:26 Outpatient SFA [facility] [id number] Freddy Hoover Jonathan 2025-03-16 08:30:00 2025-03-16 08:30:00 Outpatient DELLA MURRAY [facility] [id number] [facility] 2025-03-16 08:30:00 2025-03-16 08:30:00 Outpatient DELLA MURRAY [facility] [id number] [facility] 2025-03-13 00:00:00 2025-03-13 15:52:56 Telephone Della Mckenna [facility] [employer] [facility] MATERNAL & [facility]ILD [facility] 1.2.840.114 350.1.13.10 4.2.7.2.686 [id number] [facility] 2025-03-09 09:45:00 2025-03-09 09:56:21 Outpatient R DELLA MCKENNA [facility] [id number] [facility] 2025-03-09 09:45:00 2025-03-09 09:56:21 Office Visit Della Mckenna [facility] [employer] [facility] MATERNAL & CHILD [facility] 1.2.840.114 350.1.13.10 4.2.7.2.686 [id number] [facility] 2025-03-09 09:45:00 2025-03-09 09:45:00 Outpatient R DELLA MCKENNA [facility] [id number] [facility] 2025-03-07 13:45:00 2025-03-07 14:43:51 Outpatient R DELLA MCKENNA [facility] [id number] [facility] 2025-03-07 13:45:00 2025-03-07 14:43:51 Office Visit Della Mckenna [facility] [employer] [facility] & CHILD [facility] 1.2.840.114 350.1.13.10 4.2.7.2.686 [id number] [facility] 2025-03-03 10:00:00 2025-03-03 10:00:00 Outpatient R DELLA MCKENNA [facility] [id number] [facility] 2025-02-22 14:19:25 2025-02-22 14:19:25 Outpatient [facility] [id number] Freddy Castillo 2025-02-22 00:00:00 2025-02-22 00:00:00 Outpatient Visit [facility] [id number] Freddy Castillo 2025-02-10 10:50:43 2025-02-10 10:50:43 Outpatient SFA [facility] [id number] Freddy Castillo 2025-02-10 00:00:00 2025-02-10 00:00:00 Outpatient Visit [facility] [id number] Freddy Hoover Jonathan 2025-02-07 10:09:33 2025-02-07 10:09:33 Outpatient SFA [facility] [id number] Freddy Hoover Jonathan 2025-02-01 08:19:54 2025-02-01 08:19:54 Outpatient SFA [facility] [id number] Freddy Hoover [place] 2024-12-28 12:15:00 2024-12-28 12:15:00 Outpatient R WILLIAM TOVAR [facility] [id number] [facility] 2024-05-26 11:08:15 2024-05-26 23:59:00 Outpatient R BILLIE HUDSON BILLIE [facility] [id number] [facility] 2024-05-26 11:08:15 2024-05-26 23:59:00 Hospital Encounter Billie Hudson [facility] 1.2.840.114 350.1.13.10 4.2.7.2.686 [id number] [facility] 2024-05-26 11:15:00 2024-05-26 12:18:57 Office Visit Billie Hudson Oswaldo Macie [facility] 1.2.840.114 350.1.13.10 4.2.7.2.686 [id number] [facility] 2024-04-15 11:33:00 2024-04-15 14:00:00 Emergency X MARI HERNDON [facility] ERT [id number] [facility] 2024-04-15 11:33:00 2024-04-15 14:00:00 Emergency Mari Herndon [facility] 1.2.840.114 350.1.13.10 4.2.7.2.686 [id number] [facility] 2024-04-09 09:29:00 2024-04-09 10:43:00 Emergency X BRIGITTE JIMENEZ [facility] ERT [id number] [facility] 2024-04-09 09:29:00 2024-04-09 10:43:00 Emergency Brigitte Jimenez [facility] 1.2.840.114 350.1.13.10 4.2.7.2.686 [id number] [facility] 2023-11-14 00:00:00 2023-11-14 00:00:00 Nurse Triage Zana, [facility] 1.2.840.114 350.1.13.10 4.2.7.2.686 [id number] [facility] 2023-08-05 15:00:00 2023-08-05 15:00:00 Outpatient JYOTI HOANG [facility] [id number] [facility] 2023-05-01 11:30:00 2023-05-01 14:17:00 Emergency X SEPIDEH PALMER [facility] ERT [id number] [facility] 2023-05-01 11:30:00 2023-05-01 14:17:00 Emergency Sepideh Palmer [facility] 1.2.840.114 350.1.13.10 4.2.7.2.686 [id number] [facility] 2023-01-13 21:42:00 2023-01-13 22:24:00 Emergency X MIGUEL A NATH [facility] ERT [id number] [facility] 2023-01-13 21:42:00 2023-01-13 22:24:00 Emergency Miguel A Nath [facility] 1.2840.114 350.1.13.10 4.2.7.2.686 [id number] [facility] 2022-03-05 00:00:00 2022-03-05 00:00:00 Orders Only Doctor Unassigned, [place] [facility] 1.20.114 350.1.13.10 4.2.7.2.686 [id number] [facility] 2021-09-23 15:00:00 2021-09-23 15:00:00 Outpatient R GAGE REID [facility] [id number] [facility] 2021-08-21 09:30:00 2021-08-21 09:30:00 Outpatient R GAGE REID [facility] [id number] [facility] 2020-09-12 13:34:00 2020-09-12 18:35:00 Hospital Encounter Gage Reid [facility] 1.2840.114 350.1.13.10 4.2.7.2.686 [id number] 2020-09-12 13:34:00 2020-09-12 18:35:00 Hospital Encounter Gage Reid [facility] 1.2840.114 350.1.13.10 4.2.7.2.686 [id number] [facility] 2020-09-12 09:45:00 2020-09-12 09:45:00 Outpatient R GAGE REID [facility] [id number] [facility] 2020-09-11 15:45:00 2020-09-11 15:45:00 Outpatient R GAGE REID [facility] [id number] [facility] 2020-09-11 00:00:00 2020-09-11 00:00:00 Telephone Jeanette Gage [facility] 1.2840.114 350.1.13.10 4.2.7.2.686 [id number] 2020-09-11 00:00:00 2020-09-11 00:00:00 Telephone Gage Reid [facility] 1.2.840.114 350.1.13.10 4.2.7.2.686 [id number] [facility] 2020-09-11 00:00:00 2020-09-11 00:00:00 Case Management Gage Reid [facility] 1.2.840.114 350.1.13.10 4.2.7.2.686 [id number] [facility] 2020-09-10 17:30:00 2020-09-10 19:10:00 Hospital Encounter Gage Reid [facility] 1.2.840.114 350.1.13.10 4.2.7.2.686 [id number] [facility] 2020-09-10 16:09:56 2020-09-10 17:20:04 Routine Visit Gage Reid [facility] 1.2.840.114 350.1.13.10 4.2.7.2.686 [id number] [facility] 2020-09-10 16:00:00 2020-09-10 16:00:00 Outpatient R REIDGAGE [facility] [id number] [facility] 2020-09-03 13:00:00 2020-09-03 13:00:00 Outpatient R JEANETTEGAGE [facility] [id number] [facility] 2020-08-31 08:30:00 2020-08-31 08:30:00 Outpatient R JYOTI PAGAN [facility] [id number] [facility] 2020-08-21 10:30:00 2020-08-21 10:30:00 Outpatient R LATASHA [facility] [id number] [facility] 2020-08-14 10:30:00 2020-08-14 10:30:00 Outpatient R JYOTI PAGAN [facility] [id number] [facility] 2020-08-13 11:00:00 2020-08-13 11:00:00 Outpatient R GAGE REID [facility] [id number] [facility] 2020-07-25 10:07:00 2020-08-02 13:01:00 Inpatient 1 Rj Diez Thomas [facility] PSY [id number] [facility] 2020-07-20 08:30:00 2020-07-20 08:30:00 Outpatient R JYOTI PAGAN [facility] [id number] [facility] 2020-07-17 13:30:00 2020-07-17 13:30:00 Outpatient R LATASHA [facility] [id number] [facility] 2020-07-12 14:30:00 2020-07-12 14:30:00 Outpatient R GAGE REID [facility] [id number] [facility] 2020-06-19 14:30:00 2020-06-19 14:30:00 Outpatient R GAGE REID [facility] [id number] [facility] 2020-04-30 08:45:00 2020-04-30 08:45:00 Outpatient R [facility] [id number] [facility] 2020-04-26 10:31:59 2020-04-26 11:51:31 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 Visit Ultrasound, Jose AngelCheikh Villagmoez [facility] [employer] [facility] 1.2.840.114 350.1.13.10 4.2.7.2.686 [id number] [facility] 2020-04-26 10:15:00 2020-04-26 10:15:00 Outpatient P [facility] [id number] [facility] 2020-04-26 00:00:00 2020-04-26 00:00:00 Letter (Out) Doctor Unassigned, [place] [facility] 1..114 350.1.13.10 4.2.7.2.686 [id number] [facility] 2020-04-20 15:00:00 2020-04-20 15:00:00 Outpatient R [facility] [id number] [facility] 2020-04-20 08:18:30 2020-04-20 08:33:30 Telemedici ne Visit Fellow, [facility] Morro Savage [facility] 1..114 350.1.13.10 4.2.7.2.686 [id number] [facility] 2020-04-18 00:00:00 2020-04-18 00:00:00 Orders Only Doctor Unassigned, [place] [facility] 1.114 350.1.13.10 4.2.7.2.686 [id number] [facility] 2020-04-12 08:45:00 2020-04-12 08:45:00 Outpatient R GAGE REID [facility] [id number] [facility] 2020-04-06 08:00:00 2020-04-06 08:30:00 Telemedici ne Visit Fellow, [facility] Olga Lidia Corral [facility] 1.114 350.1.13.10 4.2.7.2.686 [id number] [facility] 2020-04-06 08:00:00 2020-04-06 08:00:00 Outpatient R [facility] [id number] [facility] 2020-03-30 00:00:00 2020-03-30 00:00:00 Case Management Sanjana Sierra [facility] 1..114 350.1.13.10 4.2.7.2.686 [id number] [facility] 2020-03-20 00:00:00 2020-03-20 00:00:00 Refill Gage Reid [facility] 1.2.840.114 350.1.13.10 4.2.7.2.686 [id number] [facility] 2020-03-15 08:20:24 2020-03-15 09:19:11 Initial Visit Gage Reid [facility] 1.2.840.114 350.1.13.10 4.2.7.2.686 [id number] [facility] 2020-03-15 08:00:00 2020-03-15 08:00:00 Outpatient R GAGE REID [facility] [id number] [facility] 2020-03-15 00:00:00 2020-03-15 00:00:00 Orders Only Doctor Unassigned, [place] [facility] 1.2.840.114 350.1.13.10 4.2.7.2.686 [id number] [facility] 2020-03-15 00:00:00 2020-03-15 00:00:00 Telephone Gage Reid [facility] 1.2.840.114 350.1.13.10 4.2.7.2.686 [id number] [facility] 2020-03-06 17:55:54 2020-03-06 22:34:00 Emergency Edson Delacruz [facility] 1.2.840.114 350.1.13.10 4.2.7.2.686 [id number] [facility] 2020-03-06 17:55:54 2020-03-06 17:55:54 Emergency X Edson DELACRUZ [facility] ERT [id number] [facility] 2020-02-01 00:00:00 2020-02-01 00:00:00 Telephone Faculty, Hood Yepez [facility] [employer] [facility] 1.2840.114 350.1.13.10 4.2.7.2.686 [id number] [facility] 2019-06-22 19:07:21 2019-06-22 21:13:00 Emergency Porter [facility] 1.2840.114 350.1.13.10 4.2.7.2.686 [id number] [facility] 2019-06-10 14:44:46 2019-06-10 15:34:00 Emergency Sepideh Palmer [facility] 1.2840.114 350.1.13.10 4.2.7.2.686 [id number] [facility] 2019-06-10 00:00:00 2019-06-10 00:00:00 Orders Only Doctor Unassigned, [place] [facility] 1.2840.114 350.1.13.10 4.2.7.2.686 [id number] [facility] Results Test Description Test Time Test Comments Results Result Co mments Source [facility]-AB WITH [id number] 04:36:05* Test Item Value Reference Range Interpretation Comme [facility] HIV Semi-quantitative (test code = 05914-0) 0.14 Negative YAMIL (test code = YAMIL) Non-reactive for HIV-1 antigen and HIV-1/HIV-2 antibodies. ?No laboratory evidence of HIV infection. ?Repeat in 2-4 weeks if acute HIV infection is suspected. [facility] [id number] 17:38:16* Test Item Value Reference Range Interpretation Comme nts TROPONIN I (test code = 2861429345) 0.005 ng/mL <=0.034 YAMIL (test code = [...] of biotin. Lab Interpretation (test code = 83999-4) Normal [facility] 17:29:51 ALCOHOL<10mg/dL04/15/2024 12:29 PM [facility]<10 Rhtopjnu07-136 Toxic>100 Depression of EMISSIONS REPAIR TECHNICIAN>400 Fatalities ReportedH[facility] WestComp. Metabolic Panel (28764)2024-04-15 17:27:38* Test Item Value Reference Range Interpretation Comme nts NA (test code = 8680065801) 140 mmol/L 135-145 K (test code = 1746506782) 3.4 mmol/L 3.5-5.0 L CL (test code = 8811395044) 104 mmol/L 98-108 CO2 TOTAL (test code = 3568713737) 31 mmol/L 23-31 AGAP (test code = 1780049784) 5 2-16 BUN (test code = 5731725156) 10 mg/dL 7-23 GLUCOSE (test code = 2428117726) 90 mg/dL 70-110 CREATININE (test code = 2160-0) 0.77 mg/dL 0.50-1.04 TOTAL BILI (test code = 4666915211) 0.4 mg/dL 0.1-1.1 CALCIUM (test code = 5551478614) 9.4 mg/dL 8.6-10.6 T PROTEIN (test code = 8968217053) 6.9 g/dL 6.3-8.2 ALBUMIN (test code = 3158620923) 3.9 g/dL 3.5-5.0 ALK PHOS (test code = 3706591863) 89 U/L 34-122 ALTv (test code = 1742-6) 18 U/L 5-35 AST(SGOT) (test code = 6058361853) 27 U/L 13-40 eGFR (test code = 49339-8) 98.9 mL/min/1.73m2 CKD-EPI eGFR (2020). Assuming creatinine has been stable day-to-day for at least three months, the eGFR indicates Category G1 (>= 90 mL/min/1.73 m2) Lab Interpretation (test code = 44153-6) Abnormal [facility] [id number] 17:27:38* Test Item Value Reference Range Interpretation Comme nts CK (test code = 5409358634) 69 U/L 33-194 Lab Interpretation (test cod e = 63740-7) Normal [facility] West[facility]bc with [id number] 17:12:33* Test Item Value Reference Range Interpretation [...] 32.5 g/dL 31.6-35.1 RDW-SD (test code = 33794-5) 47.8 fL 39.0-49.9 RDW-CV (test code = 788-0) 14.0 % 12.0-15.5 PLT (test code = 777-3) 361 166-358 H MPV (test code = 59609-2) 9.6 fL 9.5-12.9 NRBC/100 WBC (test code = 8862065673) 0.0 0.0-10.0 NRBC x10^3 (test code = 9071091873) See_Comment [Automated messa ge] The system which generated this result transmitted reference range: 10*3/?L. The reference range was not used to interpret this result as normal/abnormal. GRAN MAT (NEUT) % (test code = 770-8) 61.2 % IMM GRAN % (test code = 2542326387) 0.20 % LYMPH % (test code = 736-9) 29.5 % MONO % (test code = 5905-5) 6.9 % EOS % (test code = 713-8) 1.7 % BASO % (test code = 706-2) 0.5 % GRAN MAT x10^3(ANC) (test code = [id number]) 5.16 10*3/uL 1.88-7.09 IMM GRAN x10^3 (test code = 4912177267) 0.00-0.06 LYMPH x10^3 (test code = 731-0) 2.49 10*3/uL 1.32-3.29 MONO x10^3 (test code = 742-7) 0.58 10*3/uL 0.33-0.92 EOS x10^3 (test code = 711-2) 0.14 10*3/uL 0.03-0.39 BASO x10^3 (test code = 704-7) 0.04 10*3/uL 0.01-0.07 Lab Interpretation (test code = 60448-2) Abnormal [facility] [id number] 17:03:00* Test Item Value Reference Range Interpretation Comme nts POCT PREG (test code = 1605) Negative On board controls acceptable with C Line (test code = 3574) Yes POCT PREG LOT # (test code = 3575) [id number] POCT PREG TEST DATE ( test code = 3576) 2025-03-05 Lab Interpretation (test cod e = 88808-2) Normal [facility] [id number] 17:17:00* Test Item Value Reference Range Interpretation Comme nts POCT PREG (test code = 1605) Negative On board controls acceptable with C Line (test code = 3574) Yes POCT PREG LOT # (test code = 3575) HCG [id number] POCT PREG TEST DATE (test code = 3576) 08/07/2024 Lab Interpretation (test cod e = 79678-2) Normal [facility] TEST, THINPREP, [id number] 00:00:00 * Test Item Value Reference Range Interpretation Comme nts SOURCE: (test code = 8001) Cervical/Endo cervi bertha SLIDES: (test code = 8011) 1 LMP: (test code = 8021) 11/14/2020 SPECIMEN ADEQUACY: (test code = 51839) (NOTE) INTERPRETATION: (test code = 10224) LSIL/EPITH. ABNORMALITY; SEE BELOW OTHER COMMENTS: (test code = 8081) (NOTE) SYSTEM TECHNOLOGIST: (test code = 8101) MIGUEL ANGEL David(ASCP)IAC PATHOLOGIST INTERPRETATION BY: (test code = 8122) [facility] L[facility] LOCATION: (test code = 04945) (NOTE) CPT: (test code = 8140) (NOTE) Freddy Hoover AustinVAGINAL PATHOGENS DNA [id number] 00:00:00* Test Item Value Reference Range Interpretation Comme nts ALDA SPECIES (test code = 73530) NEGATIVE G. VAGINALIS (test code = 74393) POSITIVE T. VAGINALIS (test code = 89865) NEGATIVE Freddy Hoover AustinVAGINAL PATHOGENS DNA [id number] 00:00:00* Test Item Value Reference Range Interpretation Comme nts ALDA SPECIES (test code = 50344) NEGATIVE G. VAGINALIS (test code = 30086) POSITIVE T. VAGINALIS (test code = 88765) NEGATIVE Freddy Hoover JonathanPAP TEST, THINPREP, [id number] 00:00:00* Test Item Value Reference Range Interpretation Comme nts SOURCE: (test code = 8001) Cervical/Endo cervi bertha SLIDES: (test code = 8011) 1 LMP: (test code = 8021) 11/14/2020 SPECIMEN ADEQUACY: (test code = 53444) (NOTE) INTERPRETATION: (test code = 29991) LSIL/EPITH. ABNORMALITY; SEE BELOW OTHER COMMENTS: (test code = 8081) (NOTE) SYSTEM TECHNOLOGIST: (test code = 8101) MIGUEL ANGEL David(ASCP)[facility] INTERPRETATION BY: (test code = 8122) [facility] Lobo LOCATION: (test code = 22890) (NOTE) CPT: (test code = 8140) (NOTE) Freddy Hoover AustinHPV HIGH RISK WITH GENOTYPE, [id number] 00:00:00* Test Item Value Reference Range Interpretation Comme nts HPV HIGH RISK INTERP (test c ode = 69008) POSITIVE HPV 16 (test code = 20162) NEGATIVE HPV 18 (test code = 01785) NEGATIVE HPV, HR, OTHER GENOTYPES (te st code = 05863) POSITIVE Freddy CastilloHPV HIGH RISK WITH GENOTYPE, [id number] 00:00:00* Test Item Value Reference Range Interpretation Comme nts HPV HIGH RISK INTERP (test c ode = 22909) POSITIVE HPV 16 (test code = 25561) NEGATIVE HPV 18 (test code = 28603) NEGATIVE HPV, HR, OTHER GENOTYPES (te st code = 40279) POSITIVE Freddy Hoover UerpmlHNTR-PwA-8 (COVID-19) by RT-PCR (HIGH RISK)2020-12-30 00:00:00* Test Item Value Reference Range Interpretation Comme nts SARS-CoV-2 INTERPRETATION (test code = 67982) NEGATIVE SOURCE (test code = 58853) NASOPHARYNGEAL Freddy Hoover TvaecqRWWK-ThE-8 (COVID-19) by RT-PCR (HIGH RISK)2020-12-30 00:00:00* Test Item Value Reference Range Interpretation Comme nts SARS-CoV-2 INTERPRETATION (test code = 89654) NEGATIVE SOURCE (test code = 11665) NASOPHARYNGEAL Freddy CastilloCBC W/AUTO [id number] 07:10:00* Test Item Value Reference Range Interpretation [...] code = PLTMR) NORMAL NORMAL Comments to Data Center Manager: TO BE COLLECTED BY LABRUBELLA [id number] 14:15:00* Test Item Value Reference Range Interpretation Comme nts RUBELLA SCREEN (test code = RUBSC) 73.8 IUnit/ml Results >10.0IUn its/ml are considered positive inaccordance with the CLSI guidelines and based on the WHO International Standard for Anti-Rubella serum as anindicator of immune status and a breakpoint to detect mostseropositive persons. Comments to Data Center Manager: please use blood alreadyin the labB [id number] 07:26:00* Test Item Value Reference Range Interpretation Comme nts HEMOGLOBIN (test code = HGB) 10.9 g/dL 10.7-13.9 N HEMATOCRIT (test code = HCT) 34.6 % 32.1-42.1 N AG HEPATITIS B [id number] 04:56:00* Test Item Value Reference Range Interpretation Comme nts AG HEPATITIS B SURFACE (test code = HBSAG) NONREACTIVE NONREACTIVE IS CONSENT FORM SIGNED FOR HIV TESTING? YAB HEPATITIS C [id number] 04:56:00* Test Item Value Reference Range Interpretation Comme nts AB HEPATITIS C (test code = HCVAB) NONREACTIVE NONREACTIVE SIGNAL TO CUTOFF (test code = CUTOFF) 0.10 <0.80 N IS CONSENT FORM SIGNED FOR HIV TESTING? YAB [id number] 04:56:00* Test Item Value Reference Range Interpretation Comme nts AB TREPONEMA (test code = TREPAB) NONREACTIVE NONREACTIVE IS CONSENT FORM SIGNED FOR HIV TESTING? YAB HIV 1 04:56:00* Test Item Value Reference Range Interpretation Comme nts AB HIV 1 2 (test code = SMG16YN) NONREACTIVE IS CONSENT FORM SIGNED FOR HIV TESTING? YAG HEPATITIS B [id number] 04:56:00* Test Item Value Reference Range Interpretation Comme nts AG HEPATITIS B SURFACE (test code = HBSAG) NONREACTIVE NONREACTIVE IS CONSENT FORM SIGNED FOR HIV TESTING? YAB HEPATITIS C [id number] 04:56:00* Test Item Value Reference Range Interpretation Comme nts AB HEPATITIS C (test code = HCVAB) NONREACTIVE NONREACTIVE SIGNAL TO CUTOFF (test code = CUTOFF) 0.10 <0.80 N IS CONSENT FORM SIGNED FOR HIV TESTING? YAB [id number] 04:56:00* Test Item Value Reference Range Interpretation Comme nts AB TREPONEMA (test code = TREPAB) NONREACTIVE NONREACTIVE IS CONSENT FORM SIGNED FOR HIV TESTING? YAB HIV 1 04:56:00* Test Item Value Reference Range Interpretation Comme nts AB HIV 1 2 (test code = XOI99WC) NONREACTIVE NONREACTIVE Done by [employer] 4[employer] Gen HIV Ag/Ab Combo Screen IS CONSENT FORM SIGNED FOR HIV TESTING? YAG HEPATITIS B [id number] 04:41:00* Test Item Value Reference Range Interpretation Comme nts AG HEPATITIS B SURFACE (test code = HBSAG) NONREACTIVE NONREACTIVE IS CONSENT FORM SIGNED FOR HIV TESTING? YAB HEPATITIS C [id number] 04:41:00* Test Item Value Reference Range Interpretation Comme nts AB HEPATITIS C (test code = HCVAB) NONREACTIVE SIGNAL TO CUTOFF (test code = CUTOFF) <0.80 IS CONSENT FORM SIGNED FOR HIV TESTING? YAB [id number] 04:41:00* Test Item Value Reference Range Interpretation Comme nts AB TREPONEMA (test code = TREPAB) NONREACTIVE NONREACTIVE IS CONSENT FORM SIGNED FOR HIV TESTING? YAB HIV 1 04:41:00* Test Item Value Reference Range Interpretation Comme nts AB HIV 1 2 (test code = VQP95QR) NONREACTIVE IS CONSENT FORM SIGNED FOR HIV TESTING? YCOMPREHENSIVE METABOLIC [id number] 02:39:00* Test Item Value Reference Range Interpretation [...] units/L 46-116 H COVID 19 Asymptomatic IH [id number] 00:09:00* Test Item Value Reference Range Interpretation [...] testsfor detection and/or diagnosis of COVID-19 under Bwstgwf871(b)(1) of the Act, 21 U.S.C. 360bbb-3(b)(1), unless theauthorization is terminated or revoked sooner. CBC W/AUTO [id number] 00:00:00* Test Item Value Reference Range Interpretation Comme nts WHITE BLOOD CELL (test code = WBC) 20.9 K/mm3 6.6-12.1 HH RESULTS CALLED Susanna narayan.READ BACK & CONFIRMED? yes.BY NARDA.MR 09/13/20 8624. RED BLOOD CELL (test code = RBC) [...] NORMAL ADC / LCC - DRUG SCREEN [id number] 22:29:00* Test Item Value Reference Range Interpretation Comme nts BENZO U (test code = 4621163886) Presumptive Positive Negative A ARNOLD U (test code = 4374457401) Negative Negative AMPHET (test code = 6975014130) Negative Negative THC (test code = 1697289140) Presumptive Positive Negative A Confirmation of Presumptive Positive THC result requires physician order. METHADONE (test code = 6796641180) Negative Negative Meth U (test code = 8051327758) Negative Negative OPIATES (test code = 9602137387) Presumptive Positive Negative A Cocaine Metabolite (test code = 8645794057) Negative Negative PROPOXY (test code = 3966486038) Negative Negative Tric U (test code = 8990652710) Negative Negative PCP (test code = 1304113463) Negative Negative OXYCOD (test code = 9961380686) Negative Negative YAMIL (test code = YAMIL) [...] legal testing). Lab Interpretation (test code = 26478-9) [facility] METABOLIC PANEL (84869)2020-09-12 21:50:00* Test Item Value Reference Range Interpretation Comme nts NA (test code = 0475193892) 133 mmol/L 135-145 L K (test code = 0937476486) 3.8 mmol/L 3.5-5 CL (test code = 3121266175) 106 mmol/L 98-108 CO2 TOTAL (test code = 8230467632) 23 mmol/L 23-31 AGAP (test code = 1002968927) 2-16 BUN (test code = 8785731541) 10 mg/dL 7-23 GLUCOSE (test code = 4772586349) 106 mg/dL 70-110 CREATININE (test code = 9501868404) 0.53 mg/dL 0.5-1.04 TOTAL BILI (test code = 5314022784) 0.3 mg/dL 0.1-1.1 CALCIUM (test code = 1455221817) 8.3 mg/dL 8.6-10.6 L T PROTEIN (test code = 6134455888) 6.0 g/dL 6.3-8.2 L ALBUMIN (test code = 7538235872) 3.1 g/dL 3.5-5 L ALK PHOS (test code = 6887044753) 185 U/L 34-122 H ALTv (test code = 1742-6) 15 U/L 5-35 AST(SGOT) (test code = 0202863838) 24 U/L 13-40 eGFR Calculation (Non-) (test code = 6146912327) mL/min/1.73m2 eGFR Calculation () (test code = 9378490685) mL/min/1.73m2 YAMIL (test code = YAMIL) Association [...] imaging tests). Lab Interpretation (test code = 16827-7) [facility] 21:50:[facility]* Test Item Value Reference Range Interpretation Comme nts MAGNESIUM (test code = 8724438959) 1.8 mg/dL 1.7-2.4 Lab Interpretation (test cod e = 39058-0) Normal [facility] WITH [id number] 21:37:00* Test Item Value Reference Range Interpretation [...] 33.0 g/dL 31.6-35.1 RDW-SD (test code = 21081-3) 49.1 fL 39-49.9 RDW-CV (test code = 788-0) 14.3 % 12-15.5 PLT (test code = 777-3) See_Comment [Automated message] The system which generated this result transmitted reference range: 166 - 358 10*3/?L. The reference range was not used to interpret this result as normal/abnormal. MPV (test code = 43327-6) 10.0 fL 9.5-12.9 NRBC/100 WBC (test code = 4147661524) See_Comment [Automated message] The system which generated this result transmitted reference range: 0.0 - 10.0 /100 WBCs. The reference range was not used to interpret this result as normal/abnormal. NRBC x10^3 (test code = 0308376271) <0.01 See_Comment [Automated message] The system which generated this result transmitted reference range: 10*3/?L. The reference range was not used to interpret this result as normal/abnormal. GRAN MAT (NEUT) % (test code = 770-8) 77.1 % IMM GRAN % (test code = 8963750677) 1.00 % LYMPH % (test code = 736-9) 15.4 % MONO % (test code = 5905-5) 5.1 % EOS % (test code = 713-8) 1.1 % BASO % (test code = 706-2) 0.3 % GRAN MAT x10^3(ANC) (test code = 5712951730) 11.59 10*3/uL 1.88-7.09 H IMM GRAN x10^3 (test code = 9906868887) 0.15 10*3/uL 0-0.06 H LYMPH x10^3 (test code = 731-0) 2.32 10*3/uL 1.32-3.29 MONO x10^3 (test code = 742-7) 0.76 10*3/uL 0.33-0.92 EOS x10^3 (test code = 711-2) 0.17 10*3/uL 0.03-0.39 BASO x10^3 (test code = 704-7) 0.05 10*3/uL 0.01-0.07 Lab Interpretation (test code = 71014-3) [facility]normal [facility] STREPTOCOCCUS BY [id number] 14:02:00* Test Item Value Reference Range Interpretation Comme nts Group B Streptococcus by PCR (test code = 55836-6) Negative Negative Lab Interpretation (test cod e = 05645-7) Normal [facility]OVID[facility] (ID NOW RAPID TESTING)2020-09-11 00:51:00* Test Item Value Reference Range Interpretation Comme nts SARS-CoV-2 Rapid ID NOW (test code = 23008-5) Not Detected Not Detected YAMIL (test code = YAMIL) ID NOW COVID-19 As say is an isothermal nucleic acid amplification test intended for the qualitative detection of nucleic acid from SARS-CoV-2 viral RNA in nasopharyngeal (DESKTOP PUBLISHING SPECIALIST) specimens. It is used under Emergency Use [...] clinically indicated. Lab Interpretation (test code = 06976-8) Normal [facility] WITH [id number] 00:50:00* Test Item Value Reference Range Interpretation Comme nts WBC (test code = 6690-2) See_Comment H [Automated [employer] ge] The system which generated this result [...] 33.1 g/dL 31.6-35.1 RDW-SD (test code = 89213-9) 50.4 fL 39-49.9 H RDW-CV (test code = 788-0) 14.5 % 12-15.5 PLT (test code = 777-3) See_Comment [Automated messa ge] The system which generated this result transmitted reference range: 166 - 358 10*3/?L. The reference range was not used to interpret this result as normal/abnormal. MPV (test code = 52362-0) 9.9 fL 9.5-12.9 NRBC/100 WBC (test code = 7526157340) See_Comment [Automated [employer] ssage] The system which generated this result transmitted reference range: 0.0 - 10.0 /100 WBCs. The reference range was not used to interpret this result as normal/abnormal. NRBC x10^3 (test code = 1335433949) <0.01 See_Comment [Automated messa ge] The system which generated this result transmitted reference range: 10*3/?L. The reference range was not used to interpret this result as normal/abnormal. GRAN MAT (NEUT) % (test code = 770-8) 76.4 % IMM GRAN % (test code = 0633805591) 0.90 % LYMPH % (test code = 736-9) 16.0 % MONO % (test code = 5905-5) 5.2 % EOS % (test code = 713-8) 1.3 % BASO % (test code = 706-2) 0.2 % GRAN MAT x10^3(ANC) (test code = 3760779543) 9.39 10*3/uL 1.88-7.09 H IMM GRAN x10^3 (test code = 5859532016) 0.11 10*3/uL 0-0.06 H LYMPH x10^3 (test code = 731-0) 1.97 10*3/uL 1.32-3.29 MONO x10^3 (test code = 742-7) 0.64 10*3/uL 0.33-0.92 EOS x10^3 (test code = 711-2) 0.16 10*3/uL 0.03-0.39 BASO x10^3 (test code = 704-7) 0.03 10*3/uL 0.01-0.07 Lab Interpretation (test code = 18148-5) Abnormal [facility] WestLactate Yxnenludrwzko0355-09-36 08:28:44* Test Item Value Reference Range Interpretation Comme nts LDH (test code = LDH) 166 U/L 120-246 Comprehensive Metabolic Jhoxa7030-94-75 08:16:47* Test Item Value Reference Range Interpretation [...] = Lipemia) 0 g/dL 1-2 Comprehensive Metabolic Gsjsd2823-44-37 08:16:47* Test Item Value Reference Range Interpretation [...] is not provided, and the patient is -[place], multiply by 1.212. If sex is not [...] is not provided, and the patient is -[place], multiply by 1.212. If sex is not [...] = Lipemia) 0 g/dL 1-2 Comprehensive Metabolic Djhma3089-07-86 08:16:47* Test Item Value Reference Range Interpretation [...] is not provided, and the patient is -[place], multiply by 1.212. If sex is not [...] is not provided, and the patient is -[place], multiply by 1.212. If sex is not [...] 0 g/dL 1-2 Complete Blood Count without Mfiw1959-08-90 08:09:40* Test Item Value Reference Range Interpretation [...] = NRBC Abs) 0.00 x10 N Creatinine Ohvpu4750-16-13 15:39:13* Test Item Value Reference Range Interpretation Comme nts U Creatinine (test code = U Creatinine) 89.1 mg/dL N Reference r anges have not been established for this assay. Protein Enhay2573-09-66 15:39:13* Test Item Value Reference Range Interpretation Comme nts U Protein (test code = U Protein) 10.4 mg/dL 1.0-14.0 Complete Blood Count without Xsuc6419-73-98 06:39:12* Test Item Value Reference Range Interpretation [...] x10 N US OB Greater Than 14 Fzfzk7359-47-23 19:21:42Patient: MARTINE LENTZ Date/Time07/26/2020 17:29 CDTReason for Examper md order;Other (please specify)ReportOB ULTRASOUND LIMITEDLocation: [id number] HISTORY: Confirm pregnancyLMP gest.age by LMP 32 [...] exam early. Final Dictated by: MD De LaR osa MariaVDictated DT/TM: 07/26/2020 7:17 pmSigned by: MD De La Rosa Maria VSigned (Electronic Signature): 07/26/2020 7:21 pmBeta HCG Qpbxlwefiigb4037-17-99 14:42:56* Test Item Value Reference Range Interpretation Comme nts HCG, Beta Quantitative (test code = HCG, Beta Quantitative) 88278.1 mIU/mL N 17-54 (Non-)?41 (Post-menopausal) RPR Mpczahonurl0902-35-19 12:50:28* Test Item Value Reference Range Interpretation [...] code = Expiration Dt) 08-01-2021 N Lipid Dsmcw4937-62-82 07:58:23* Test Item Value Reference Range Interpretation [...] is LDL/HDL Ratio=LDL Calc/HDL Chol Thyroid Stimulating Jeiiqnj5759-71-93 07:58:23* Test Item Value Reference Range Interpretation Comme nts TSH (test code = TSH) 1.312 mcIU/mL 0.550-4.780 Hemoglobin [id number] 07:54:16* Test Item Value Reference Range Interpretation Comme nts Hemoglobin A1c (test code = Hemoglobin A1c) 5.1 % 4.0-5.8 Diabetic >=6.5 %Prediabetes 5.7-6.4 %Normal <5.7 % ADC / LCC - DRUG SCREEN [id number] 22:40:00* Test Item Value Reference Range Interpretation Comme nts BENZO U (test code = 6594994822) Negative Negative ARNOLD U (test code = 9230858440) Negative Negative AMPHET (test code = 5236795944) Negative Negative THC (test code = 5333407819) Negative Negative METHADONE (test code = 5085203442) Negative Negative Meth U (test code = 9538543752) Negative Negative OPIATES (test code = 7968166639) Negative Negative Cocaine Metabolite (test code = 8906131629) Negative Negative PROPOXY (test code = 2948142156) Negative Negative Tric U (test code = 7728228476) Negative Negative PCP (test code = 2898851211) Negative Negative OXYCOD (test code = 6732593592) Negative Negative YAMIL (test code = YAMIL) [...] legal testing). Lab Interpretation (test code = 19225-5) Normal [facility] URINALYSIS W/O SPECIFIC OWFHGCF1797-78-37 14:00:00* Test Item Value Reference Range Interpretation [...] = 3257) N/A Negative - Negati ve [facility]. METABOLIC PANEL (71665)2020-03-07 00:39:00* Test Item Value Reference Range Interpretation Comme nts NA (test code = 8706281390) 139 mmol/L 135-145 K (test code = 3492330667) 3.9 mmol/L 3.5-5 CL (test code = 0639039759) 108 mmol/L 98-108 CO2 TOTAL (test code = 9963007480) 22 mmol/L 23-31 L AGAP (test code = 1076052974) 2-16 BUN (test code = 9184514078) 5 mg/dL 7-23 L GLUCOSE (test code = 9009409992) 103 mg/dL 70-110 CREATININE (test code = 6307847630) 0.44 mg/dL 0.5-1.04 L TOTAL BILI (test code = 9105404754) <0.1 0.1-1.1 L CALCIUM (test code = 3317373475) 9.7 mg/dL 8.6-10.6 T PROTEIN (test code = 0516652510) 6.2 g/dL 6.3-8.2 L ALBUMIN (test code = 3005034965) 3.6 g/dL 3.5-5 ALK PHOS (test code = 4105979948) 56 U/L 34-122 ALTv (test code = 1742-6) 10 U/L 5-35 AST(SGOT) (test code = 6728968198) 20 U/L 13-40 eGFR Calculation (Non-) (test code = 3684168960) mL/min/1.73m2 eGFR Calculation () (test code = 5421769725) mL/min/1.73m2 YAMIL (test code = YAMIL) Association [...] imaging tests). Lab Interpretation (test code = 07424-6) Abnormal [facility] WestACETAMINOPHEN2020-05-06 00:39:00* Test Item Value Reference Range Interpretation Comme nts ACETAMINOP (test code = 5136099443) <10.0 10-30 L YAMIL (test code = YAMIL) Toxic: Greater hanna n 200 ug/mL @ 4 hour post ingestion or greater than 50 ug/mL @ 12 hour post ingestion Lab Interpretation (test code = 69533-9) Abnormal [facility] WestSALICYLATE2020-05-06 00:39:00* Test Item Value Reference Range Interpretation Comme nts SALICYLATE (test code = 7565379790) <10 mg/L YAMIL (test code = YAMIL) Therapeutic Range: ? Analgesic and Antipyretic Use ? 20-100 mg/L ? ? Anti-Inflammatory Use ? 100-250 mg/L Toxic Range: ? Greater than 300 mg/L [facility] WestPOCT [id number] 00:38:00* Test Item Value Reference Range Interpretation Comme nts POCT PREG (test code = 1605) positive On board controls acceptable with C Line (test code = 3574) present POCT PREG LOT # (test code = 3575) [id number] POCT PREG TEST DATE ( test code = 3576) 06-01-2021 Lab Interpretation (test cod e = 69097-8) Normal [facility] WestETHANOL2020-05-06 00:37:00* Test Item Value Reference Range Interpretation Comme nts ALCOHOL (test code = 0389400581) 88 mg/dL YAMIL (test code = YAMIL) <10 Xvzgtpdu23-979 Toxic>100 Depression of EMISSIONS REPAIR TECHNICIAN>400 Fatalities Reported [facility]MAGN[facility]IUM2020-05-06 00:36:00* Test Item Value Reference Range Interpretation Comme nts MAGNESIUM (test code = 7077792867) 1.6 mg/dL 1.7-2.4 L Lab Interpretation (test cod e = 14023-9) Abnormal [facility]IN[facility]YSIS2020-05-06 00:15:00* Test Item Value Reference Range Interpretation Comme nts APPEARANCE (test code = 9575376180) Clear Clear COLOR (test code = 6735331974) Yellow Yellow PH (test code = 3267911729) 4.8-8.0 SP GRAVITY (test code = 1301387151) 1.003-1.030 GLU U QUAL (test code = 6719375061) Normal Normal BLOOD (test code = 4784807196) Negative Negative KETONES (test code = 9112102996) Negative Negative PROTEIN (test code = 2887-8) Negative Negative UROBILIN (test code = 6232491670) Normal Normal BILIRUBIN (test code = 1248713935) Negative Negative NITRITE (test code = 0189554384) Negative Negative LEUK MARY (test code = 0276608084) Negative Negative RBC/HPF (test code = 6882656867) <1 See_Comment [Automated messa ge] The system which generated this result transmitted reference range: 0 - 3 HPF. The reference range was not used to interpret this result as normal/abnormal. WBC/HPF (test code = 8088354872) See_Comment [Automated messa ge] The system which generated this result transmitted reference range: 0 - 5 HPF. The reference range was not used to interpret this result as normal/abnormal. BACTERIA (test code = 0593471571) Few Negative A MUCOUS (test code = 4598514031) Slight Negative LPF A SQ EPITH (test code = 1437384253) HPF Lab Interpretation (test code = 94469-8) Abnormal [facility] - DRUG SCREEN GAZTMM5008-89-44 23:49:00* Test Item Value Reference Range Interpretation Comme nts BENZO U (test code = 5936330408) Presumptive Positive Negative A ARNOLD U (test code = 4640061906) Negative Negative AMPHET (test code = 0267608696) Negative Negative THC (test code = 7427320827) Negative Negative METHADONE (test code = 9174498701) Negative Negative Meth U (test code = 5532162805) Negative Negative OPIATES (test code = 8440191375) Negative Negative Cocaine Metabolite (test code = 7792957618) Negative Negative PROPOXY (test code = 6326250592) Negative Negative Tric U (test code = 8679416689) Negative Negative PCP (test code = 6350994835) Negative Negative OXYCOD (test code = 9775507326) Negative Negative YAMIL (test code = YAMIL) [...] legal testing). Lab Interpretation (test code = 63545-8) Abnormal [facility] WITH NPJUWCVTSVXD5785-95-21 23:34:00* Test Item Value Reference Range Interpretation [...] 34.0 g/dL 31.6-35.1 RDW-SD (test code = 77069-9) 42.4 fL 39-49.9 RDW-CV (test code = 788-0) 13.0 % 12-15.5 PLT (test code = 777-3) See_Comment [Automated messa ge] The system which generated this result transmitted reference range: 166 - 358 10*3/?L. The reference range was not used to interpret this result as normal/abnormal. MPV (test code = 22720-4) 9.7 fL 9.5-12.9 NRBC/100 WBC (test code = 5510025547) See_Comment [Automated me ssage] The system which generated this result transmitted reference range: 0.0 - 10.0 /100 WBCs. The reference range was not used to interpret this result as normal/abnormal. NRBC x10^3 (test code = 8272780840) <0.01 See_Comment [Automated messa ge] The system which generated this result transmitted reference range: 10*3/?L. The reference range was not used to interpret this result as normal/abnormal. GRAN MAT (NEUT) % (test code = 770-8) 72.0 % IMM GRAN % (test code = [id number]) 0.40 % LYMPH % (test code = 736-9) 21.6 % MONO % (test code = 5905-5) 3.9 % EOS % (test code = 713-8) 1.8 % BASO % (test code = 706-2) 0.3 % GRAN MAT x10^3(ANC) (test code = [id number]) 8.22 10*3/uL 1.88-7.09 H IMM GRAN x10^3 (test code = [id number]) 0.05 10*3/uL 0-0.06 LYMPH x10^3 (test code = 731-0) 2.47 10*3/uL 1.32-3.29 MONO x10^3 (test code = 742-7) 0.45 10*3/uL 0.33-0.92 EOS x10^3 (test code = 711-2) 0.20 10*3/uL 0.03-0.39 BASO x10^3 (test code = 704-7) 0.03 10*3/uL 0.01-0.07 Lab Interpretation (test code = 58154-7) [facility]normal [facility] [id number] 14:45:00* Test Item Value Reference Range Interpretation Comme nts RPR (test code = RPR) Non-Reactive Non-Reactive N Thyroid Stimulating Hormone (TSH)2017-12-30 07:29:00* Test Item Value Reference Range Interpretation Comme nts TSH (test code = TSH) 2.42 mIU/mL 0.270-4.200 N BHCG, Serum, Dwpitpndtwqs3593-10-31 07:29:00* Test Item Value Reference Range Interpretation Comme nts B hCG, Quant (test code = BHCGQT) <1 mIU/mL Weeks of Gestati on Ranges (mIU/mL)3 weeks 5.40 - 72.04 weeks 10.2 - 7085 weeks 217 - 24276 weeks 152 - 084247 weeks 4059 - 8229974 weeks 82636 - 7510331 weeks 62303 - 13198303 weeks 68318 - 88853241 weeks 47106 - 54473114 weeks 19195 - 4114638 weeks 69623 - 7108651 weeks 8904 - 6440275 weeks 8240 9034015 weeks 6108 - 67624 Lipid [id number] 07:19:00* Test Item Value Reference Range Interpretation Comme nts Cholesterol (test code = CHOL) 132 mg/dL 0-200 N Triglycerides (test code = TRIG) 122 mg/dL 9-200 N HDL (test code = HDL) 21 mg/dL 50-60 L Chol/HDL (test code = CHOLPHDL) 6.3 Ratio 0.0-4.4 H LDL, Calculated (test code = LDLC) 87 0-130 N (NOTE)RISK OF HEART DISEASEPublished by Comoran Heart AssociationAnalyte Optimal Boderline Increased RiskCHOL <200 200-239 >240TRIG <150 150-199 >200HDL Male: >60 <40HDL Female: >60 <50LDL <100 130-159 >160LDL NEAR OPTIMAL IS 100-129 VLDL (test code = VLDL) 24 mg/dL 5-40 N LDL/HDL (test code = LDLPHDL) 4 [id number] 04:24:00* Test Item Value Reference Range Interpretation [...] code = THC) POSITIVE Negative A Urinalysis [id number] 03:47:00* Test Item Value Reference Range Interpretation Comme nts Color (test code = COLOR) [place] Yellow,Straw,Pl yellow A The value [place] originally released by JENA on 12/30/2017 03:42 waschanged to [place] by JENA on 12/30/2017 03:47 Clarity (test code = CLAR) Sl Cloudy Clear A The value Clear originally released by JENA on 12/30/2017 03:42 waschanged to Sl Cloudy by JENA on 12/30/2017 03:47 Specific [place] (test code = SPGR) 1.006 1.001-1.035 N [...] code = BACT) Few /HPF Comprehensive Metabolic [id number] 01:00:00* Test Item Value Reference Range Interpretation [...] race is not provided, and the patient isAfrican-Comoran, multiply by 1.212. If sex is not [...] by the National Kidney Foundation,http://nkdep .nih.gov Alcohol/Ethanol, Svdpj4968-68-29 01:00:00* Test Item Value Reference Range Interpretation Comme nts Alcohol, Ethyl (test code = ETOH) <0.01 g/dL 0.00-0.01 N Intoxicated 0 .080 g/dL or more CBC with [id number] 00:45:00* Test Item Value Reference Range Interpretation [...] code = ALYMPH) 3.8 K/cumm 0.5-4.6 N [place] Abs (test code = AMONO) 0.5 K/cumm [...] COUNSELING SESSION THIS MORNING. PATIENT EDUCATED ON [facility] PHONE NUMBER. [facility] 2025-04-03 06:35:20 Psychiatric Re-Evaluation Note Emergency Department Date: April 03, 2025 I have reassessed the patient on this shift. The patient states or demonstrates that they are still having: Suicidal ideation or thoughts: Yes Homicidal ideation or thoughts: No Auditory and/or visual hallucinations: No Psychosis, paranoia, or other mental instability impairing normal decision making: No Suggested risk level of [place]: Low On reassessment, the patient should still [...] tablet 25 mg Miguel A Nath MD [facility] EMERGENCY PHYSICIAN STAFF [facility] 2025-04-03 01:57:54 Patient talking to [facility] at this time. T [facility] 2025-04-02 22:33:57 Spoke to [facility] requesting a screener. Will call back with ETA. [facility] 2025-04-02 19:41:38 SAFE-T Protocol with C-SSRS ([place] Risk and Protective Factors) - Recent Step [...] there things, anyone or anything (e.g. family, spiritism, pain of ), that stopped you from [...] place referral to outpatient behavioral health resources. [facility] 2025-04-02 19:25:42 Patient educated on emergency department behavioral process and precautions. Educated on the need for direct observation, removal of belongings, and clearing of room for patient safety. Patient given community resources for outpatient treatment and care. [facility] 2025-04-02 19:12:51 Patient arrived to ED via [facility] c/o Suicidal Ideations that have been off and on. Patient recently AMA from here stating she felt better and her SI was gone. Today patient states she wants to go to a facility. She feels like her environment is making her feel this way. Hx of anxiety and PTSD. Sonal Jo RN [facility] 2025-04-02 19:06:00 [facility] Emergency Department Note Patient Name: Martine Lentz Date of : 1980 45 year old female Treatment Room: Room/bed info not found Primary Care Physician: PATIENT DOES NOT HAVE A PCP Patient Escorted by: Self [9] Mode of Arrival: EMS - [facility] ([place]) [43] EMS Treatment Prior to ED Arrival: VOCATIONAL EVALUATOR treatment: None Travel and Exposure Screening: Symptoms [...] by current living situation in [facility]. (+) prior mental health hospitalizations. Last was [...] Normal FENTANYL Negative Negative COMP. METABOLIC PANEL (63537) NA 136 135 - 145 mmol/L K [...] Drug Screen w/o Reflex Comprehensive Metabolic Panel (85971) CBC with Differential Ethanol (ETOH) Level Influenza [...] ED COURSE ED Course as of 04/02/252220 [place] Apr 02, 20252218 Medically cleared for [facility] assessment. [RK] ED Course User Index [RK] [...] Dr Nath at end of shift with [facility] assessment and final dispo pending. Flowsheet Documentation: [...] needed for Nausea and Vomiting (N/V). PNV [id number] 1-DSS-DHA (VITAFOL FE+, WITH DOCUSATE,) 90 MG [...] Dr Nath at end of shift with [facility] assessment and final dispo pending. Electronically signed by: Lucio Box MD 04/02/252220 [facility] 2025-04-01 01:00:00 [facility] PD notified of patient AMA. Sonal Jo RN [facility] 2025-04-01 00:57:23 Patient sitting in bed smiling. Patient states she is not suicidal anymore. "It was the meth that was making me paranoid." Patient educated on policy for leaving AMA while on SI precautions. PIV removed. Aox4. Gait ambulatory. Provider notified. [facility] 2025-04-01 00:03:51 Summary: patient eating Patient was given a turkey sandwhich, jello, pudding and a juice. Patient tolerated food. T [facility] 2025-03-31 23:29:15 Summary: talking with provider Patient is talking with the provider. T Michelle Rizo PCT [facility] 2025-03-31 23:07:27 Patient/family educated on emergency department behavioral process and precautions. Educated on the need for direct observation, removal of belongings, and clearing of room for patient safety. Patient/family given [facility] resources for outpatient treatment and care. T [facility] 2025-03-31 22:56:27 Pt presents to ED via [facility] for c/o SI, anxiety, paranoia, headache, and meth use at 1200. Pt tachycardic with EMS, 20 G IV en route, with 250 mL of fluid given en route. Brock Perez RN [facility] 2025-03-13 15:51:36 Notified the patient of her [...] months. Pt verbalized understanding. Amy Henderson LVN [facility] 2025-03-13 14:06:40 Please notify the patient of [...] 3 months. ROMARIO Argueta 03/13/2025 2:08 PM [facility] Freddy Guzman [facility]2025-04-11 00:00:00 Freddy Guzman [facility]2024-06-14 13:56:16 Pt given printed and verbal discharge [...] with steady gait, in no apparent distress. [id number] 13:45:00 Upon discharge, patient requesting to be tested for STD's, provider notified. [facility]14[facility] 12:12:37 Patient requesting to be tested for HIV, medical records from 2010, and help for her mental health problems including hallucinations. Provider notified. [facility]63 11:35:40 Patient arrived in custody with [employer] by [place] [facility] for weakness, patient states she feels like she is going to pass out and feels like she is in afib. Patient also complains of sciatica pain. Kathy Perera RN[id number] 11:29:00 Associated Order(s): EKG-12 Lead ROUTINE ONCE Pre-Procedure Diagnose(s): Substance abuse Post-Procedure Diagnose(s): Substance abuse [facility] Emergency Department Note Patient Name: Martine Lentz Date of : 1980 44 year old female Treatment Room: [place] [address] Primary Care Physician: PATIENT DOES NOT HAVE A PCP Patient Escorted by: Law enforcement [8] Mode of Arrival: EMS - [facility] ([place]) [43] EMS Treatment Prior to ED Arrival: VOCATIONAL EVALUATOR treatment: Saline lock Travel and Exposure Screening: Symptoms Does patient have any of these symptoms?: (not recorded) Exposure Screening Has patient had contact with someone with a communicable disease in the last month?: (not recorded) Diseases exposed to:: (not recorded) Is Patient ?: (not recorded) Exposure Date: (not recorded) Chief Complaint: Chief Complaint Patient presents with Weakness [facility]cc clearance History of Present Illness: Pt has [...] it is possible for black magic and christianity to make her feel the way that she does, she prayed for jolly lizama on [employer] and since then black cars have been following her She has no fever no si/hi, she is under arrest with [facility], seeking medical clearance, she denies si/hi [...] Procedures Cbc with Diff Comp. Metabolic Panel (74594) Troponin I POCT Test Urinalysis Urine Drug [...] it is possible for black magic and christianity to make her feel the way that she does, she prayed for jolly lizama on instagram and since then black cars have been following her She has no fever no si/hi, [facility], seeking medical clearance, she denies si/hi [...] her to a psych hospital because in halfway they put her in a padded room. She says she has severe anxiety and wants to go to a psych hospital for anxiety, when asked if she had anxiety before arrest she said no. She has acute stressors of halfway, she did not have any chest pain before, She says she has adderall and xanex prescriptions but her friend picks them up because that friend has insurance and she does not After this info, I checked her VETERINARY MEDICINE DOCTOR she is getting benzos/opiats/amphetamines, but now pt is tating her friend is getting them an not her She asked for me to give her IV narcotics for her back pain, this is pain she did not have initially, I informed her I would not give her narcotics She does have a bladder infection She is going to halfway and is anxious will give a xanex Medically her bp and hr have been stable in sinus rhythm Will dc to halfway She has some manipulitave behavior but as she is in custody they can enlist their Mental heatlh professionals as needed She is now asking for STD, HIV and thorazine She seems to be delaying her Mcc and manipulating nursing/health care for concerns she was not worried about until she got arrested. I agree she should have comprehensive health care and mental health care, but she did not come in for any individual event and would not be here if not in halfway. And her reason for seeking care was [...] 0.01 - 0.07 10*3/uL -Comp. Metabolic Panel (83397): Collection Time: 04/15/24 12:02 PM Result Value [...] needed for Nausea and Vomiting (N/V). PNV [id number] 1-DSS-DHA (VITAFOL FE+, WITH DOCUSATE,) 90 MG [...] signed by: Mari Herndon MD 04/15/24 [address] [place] [address]-06-08 10:18:02 Left AMA, walk out in ER with steady gait and with belonging. vitally stable. [place] [address]-06-08 10:05:44 Patient was seen by Brigitte AGUIAR, but patient refused the work up and insisted to do her work up in [facility]. Gino wrap applied to right wrist. Jacqueline HERNANDEZcharge out clerk aware. [place] [address]-06-08 09:30:21 Came by rufe ems states" she complaint of right wrist sprained, he has hx of psychosis, PTSD and afib" Denies any trauma, states she lift a heavy trash a mos ago [place] [address]-01-13 15:04:00 Regardiny/f pt calling states she's been having visions, says someone is going to take kids from her ----- Message from Roxanne Perla sent at 11/14/2023 3:02 PM REPRODUCTION PRODUCTION MANAGER ----- Martine Lentz is a 43 year old female states she is an addict, and is crying ODUCTION PRODUCTION MANAGER Alisa Spann RNUT - [id number] 15:04:00 Adult Triage Assessment Last Clinic Visit: [...] Pt stating that she feels like the [employer] has hacked her phone and is following her. Pt reports she needs to tell President Jessica what happened. Pt states Pt rambles about lots of events including people are watching her, CPS is taking her kids away, she has stopped pills, now taking them again, she has been on a vent in the hospital, her mom , guide visitor keep coming to her home, people are [...] friend or family member) available Protocols used: Ybnqdjpjseski-OQAET-GS [facility]2020-11-25 14:55:097435-4896 [facility] [address], [place] [address] PATIENT NAME: MARTINE LENTZ ADMIT DATE: 09/13/20 ACCOUNT NO: [id number] ROOM NO: AGE: 40 SEX: F ADMITTING [...] Sherman Collazo III, MD WT: DS:KAM/HOLLY/AYAKA Conf#: [id number]#: [id number] PATIENT NAME: MARTINE LENTZ Authenticated and Edited by Sherman Collazo MD On 09/29/20 4:16:09 PM at 1618 PATIENT NAME: MARTINE LENTZ 09:10:00 [facility] OB Postpart Progr Note REPORT#:[id number] REPORT STATUS: Signed DATE:09/16/20 TIME: 909 PATIENT: MARTINE LENTZ UNIT #: [id number] ROOM/BED: [address] : [birth year] AGE: 40 SEX: F [...] The pt states she had PNC at [facility], but then stopped going. She doesn't like them because of the morphine issue. She states she was going to breast feed, but they asked her to set an alarm every 2 hours, but her phone is . She can't call home because all calls are long distance, and her room phone won't allow it. When I offered to find her a director of materials for her phone, she said no it's [...] to leave AMA. Consultation(s): Consultation performed: social media project manager (per nurse, they saw her alread) at 0937 RPT #:[id number] END OF REPORT [id number] 12:33:00 [facility] ([facility]) OB Postpart Progr Note REPORT#:[id number] REPORT STATUS: Signed DATE:09/15/20 TIME: 1233 PATIENT: MARTINE LENTZ UNIT #: [id number] ROOM/BED: : 82 AGE: 40 SEX: F [...] % (Auto) (14.3 - 34.3 %) 19.0 [place] % (Auto) (5.1 - 10.4 %) 3.7 L Eos % (Auto) (0.1 - 3.0 %) 0.9 Baso % (Auto) (0.1 - 1.0 %) 0.2 Neut # (Auto) (K/mm3) 13.3 Lymph # (Auto) (K/mm3) 3.3 [place] # (Auto) (K/mm3) 0.7 Eos # (Auto) [...] possible dc home tomorrow at 1245 RPT #:[id number] END OF REPORT [id number] 13:34:00 [facility] ([facility]) Clinical Note REPORT#:[id number] REPORT STATUS: Signed DATE:09/14/20 TIME: 1334 PATIENT: MARTINE LENTZ UNIT #: [id number] ROOM/BED: : 82 AGE: 40 SEX: F [...] (Auto) (14.3 - 34.3 %) 12.9 L [place] % (Auto) (5.1 - 10.4 %) 4.4 L Eos % (Auto) (0.1 - 3.0 %) 1.0 Baso % (Auto) (0.1 - 1.0 %) 0.2 Neut # (Auto) (K/mm3) 16.9 Lymph # (Auto) (K/mm3) 2.7 [place] # (Auto) (K/mm3) 0.9 Eos # (Auto) [...] will check rubella status at 1338 RPT #:[id number] END OF REPORT [id number] 01:44:00 [facility] ([facility]) Clinical Note REPORT#:[id number] REPORT STATUS: Signed DATE:09/14/20 TIME: 014 PATIENT: MARTINE LENTZ UNIT #: [id number] [facility] AGE: 40 SEX: F ATTEND: Sherman Collazo III, MD ADM AUTHOR: Sherman Collazo III, MD * ALL edits or amendments must be made on the electronic/computer document * Clinical Note Note: MARBLE MECHANIC HELPER Hospitalist Zay To meet the standard of care, there was a need for a magistrate assistant on this patient's c/section. There were no medical students, residents or any other surgical assistants available to assist. I was present as the only magistrate assistant for the entire procedure from start to finish. jr at 0148 RPT #:[id number] END OF REPORT [id number] 00:19:00 [facility] ([facility]) Full Op Note REPORT#:[id number] REPORT STATUS: Signed DATE:09/14/20 TIME: 18 PATIENT: MARTINE LENTZ UNIT #: [id number] [facility] AGE: 40 SEX: F ATTEND: Sherman Collazo III, MD ADM AUTHOR: Nael Carter MD * ALL edits or amendments must be made on the electronic/computer document * Operative Report Start date: 09/14/20 Start time: 104 Pre-procedure diagnosis: 39 weeks previous c/s in labor Post-procedure diagnosis: 39 weeks previous c/s in labor Procedures performed: repeat section Technique/Procedure: LUT Primary Surgeon: nita Physical Therapy Manager(s): santana collazo Anesthesia: spinal anesthetic Operative findings: [...] incision with mild fundal pressure by the optometric assistant. The baby is delivered easilyThe cord [...] PACU in good condition. at 0314 RPT #:[id number] END OF REPORT [id number] 00:01:00 [facility] ([facility]) OB Admission / H P REPORT#:[id number] REPORT STATUS: Signed DATE:09/14/20 TIME: 2329 PATIENT: MARTINE LENTZ UNIT #: [id number] ROOM/BED: [address] : [birth year] AGE: 40 SEX: F ATTEND: Sherman Collazo III, MD ADM AUTHOR: Nael Carter MD * ALL edits or amendments must be made on the electronic/computer document * OB History Chief complaint: uterine contractions (previous ) HPI: 40 yo at 39 weeks with regular uterine contractions previous c/s for herpes outbreak 2012 currently with HSV outbreak in [facility] area care in [place] Transferred to [place] for h/o being AMA previous reaction to [...] (Auto) (14.3 - 34.3 %) 12.9 L [place] % (Auto) (5.1 - 10.4 %) 4.4 L Eos % (Auto) (0.1 - 3.0 %) 1.0 Baso % (Auto) (0.1 - 1.0 %) 0.2 Neut # (Auto) (K/mm3) 16.9 Lymph # (Auto) (K/mm3) 2.7 [place] # (Auto) (K/mm3) 0.9 Eos # (Auto) (K/mm3) 0.21 Baso # (Auto) (K/mm3) 0.1 Serology SARS-CoV-2 Ag (Rapid) (NEGATIVE) NEGATIVE Diagnosis, Assessment Plan Diagnosis, Assessment Plan Assessment/Impression: previous C/S, in labor (39 weeks), normal FHR pattern, reactive NST Plan: admit to inpatient, , delivery at 0212 RPT #:[id number] END OF REPORT [id number] 21:35:56[facility] Discharge Summary PATIENT NAME: MARTINE LENTZ PHYSICIAN: Liz Reid MD Admitted: MR NUMBER: [id number] DISCHARGED: 12/31/2017 02:01:00 REASON FOR ADMISSION: Martine Lentz is a 37-year-old female with a past psychiatric history, major depressive disorder, generalized anxiety disorder, and panic disorder, who presented to [facility] voluntarily for worsening depression and distressing auditory [...] delusional that writers from social media and [employer] put "black magic" on her a couple [...] writers on social media who she cannot [facility] Discharge Summary PATIENT NAME: MARTINE LENTZ PHYSICIAN: Liz Reid MD Admitted: MR NUMBER: [id number] DISCHARGED: 12/31/2017 02:01:00 REASON FOR ADMISSION: Martine Lentz is a 37-year-old female with a past psychiatric history, major depressive disorder, generalized anxiety disorder, and panic disorder, who presented to [facility] voluntarily for worsening depression and distressing auditory [...] writers on social media who she cannot [facility] Discharge Summary identify. She was much more [...] home continue her psychotropic medications, followup with [facility] Psychiatry and start therapy. MENTAL STATUS [...] throughout the interview. GAIT: Normal. LABORATORY DATA: [facility] Discharge Summary identify. She was much more [...] home continue her psychotropic medications, followup with [facility] Psychiatry and start therapy. MENTAL STATUS [...] throughout the interview. GAIT: Normal. LABORATORY DATA: [facility] Discharge Summary Serum less than 1. Lipid [...] appointment. She was also given resources for [facility] for therapy. DISPOSITION: Martine Lentz is currently [...] patient has also met with her social worker psychiatric to obtain the appropriate followup paperwork depends upon through this plan has been reviewed with the patient with the understanding that compliance will be crucial to her recovery. She has been given the [facility] crisis hotline, which is and the information about [facility] if she wishes to be in therapy. Liz Reid MD [facility] Discharge Summary Serum less than 1. Lipid [...] appointment. She was also given resources for [facility] for therapy. DISPOSITION: Martine Lentz is currently [...] patient has also met with her social worker psychiatric to obtain the appropriate followup paperwork depends upon through this plan has been reviewed with the patient with the understanding that compliance will be crucial to her recovery. She has been given the [facility] crisis hotline, which is and the information [facility] if she wishes to be in therapy. Liz Reid MD [facility] Discharge Summary MD HENOK Desai/ISAIAH TD: 01/10/2018 23:37 CC:Norma Zhang MD Electronically Authenticated and Edited by: Liz Reid MD On 01/24/2018 09:35 PM CDT [facility] Discharge Summary MD HENOK Desai/ISAIAH TD: 01/10/2018 23:37 CC:Norma Zhang MD Electronically Authenticated and Edited by: Liz Reid MD On 01/24/2018 09:35 PM CDT Electronically Authenticated by: Norma Zhang MD On 01/26/2018 01:31 PM [id number] 12:05:40[facility] Psych Eval PATIENT NAME: MARTINE LENTZ PHYSICIAN: Liz Reid MD Admitted: MR NUMBER: [id number] DISCHARGED: Psych Eval Patient Name: MARTINE LENTZ Date of Service: Date of : 1980 Clinician: Liz Reid MD User Field 1: J Encounter Visit: BI User Field 3: J Referring Norma Zhang MD Clinician: DATE OF ADMISSION: 12/29/2017 ATTENDING PHYSICIAN: Norma Zhang MD TIME OF PSYCHIATRIC EVALUATION: 12/30/2017 at 8:30 a.m. INFORMANTS: The patient, [place] medical record. CHIEF COMPLAINT: "I need help for these voices." HISTORY OF PRESENT ILLNESS: Martine Lentz is a 37-year-old female with a past psychiatric history of major depressive disorder, generalized anxiety disorder, panic disorder, and opioid use disorder, who came into [facility] voluntarily for worsening depression and distressing auditory hallucinations. She has had one psychiatric hospitalization here and was discharged from [facility] in March 2013. She reports that [...] distressing that she quit her job at [employer]. She has also been having delusions for [...] for this depression and these voices 2 [facility] Psych Eval PATIENT NAME: MARTINE LENTZ PHYSICIAN: Liz Reid MD Admitted: MR NUMBER: [id number] DISCHARGED: Psych Eval Patient Name: MARTINE LENTZ Date of Service: Date of : 1980 Clinician: Liz Reid MD User Field 1: J Encounter Visit: BI User Field 3: J Referring Norma Zhang MD Clinician: DATE OF ADMISSION: 12/29/2017 ATTENDING PHYSICIAN: Norma Zhang MD TIME OF PSYCHIATRIC EVALUATION: 12/30/2017 at 8:30 a.m. INFORMANTS: The patient, [place] medical record. CHIEF COMPLAINT: "I need help for these voices." HISTORY OF PRESENT ILLNESS: Martine Lentz is a 37-year-old female with a past psychiatric history of major depressive disorder, generalized anxiety disorder, panic disorder, and opioid use disorder, who came into [facility] voluntarily for worsening depression and distressing auditory hallucinations. She has had one psychiatric hospitalization here and was discharged from [facility] in March 2013. She reports that [...] distressing that she quit her job at [employer]. She has also been [...] The patient has had one hospitalization at [facility]. She was discharged from [facility] in March 2013. At that time, [...] The patient has had one hospitalization at [facility]. She was discharged from [facility] in March 2013. At that time, [...] mom. She was last employed at the [employer], but stopped working because of the voices. [...] mom. She was last employed at the [employer], but stopped working because [...] disorder, and panic disorder, who presented to [facility] voluntarily for worsening depression and distressing auditory [...] also has a delusion that writers from [employer] put "black magic" on her a couple [...] disorder, and panic disorder, who presented to [facility] voluntarily for worsening depression and distressing auditory [...] delusion that writers from [employer] put "black magic" on her a couple [...] Dr. Zhang's service on the [facility] Unit and placed on suicide, [...] Dr. Zhang's service on the [facility]patient Unit and placed on suicide, [...] Norma Zhang MD On 02/09/2018 04:15 PM [facility]
--- NOTE | 2025-07-19 04:02 | ER ---
Nurse's Notes [facility] Name: Miriam Fried Age: 45 yrs Sex: Female : 1980 Arrival Date: 07/19/2025 Time: 02:10 Bed IW9 Private MD: Diagnosis: Methamphetamine use disorder, acute anxiety, noncardiac chest pain Presentation: 07/19 02:13 Chief complaint: Patient states: i had low potassium recently and its giving me anxiety lg3 and now i have chest pain. PT concerned with someone putting meth in her drink. Coronavirus screen: Client denies travel out of the [place] in the last 14 days. At this time, the client does not indicate any symptoms associated with coronavirus-19. Ebola Screen: No symptoms or risks identified at this time. Initial Sepsis Screen: Does the patient meet any 2 criteria? No. Patient's initial sepsis screen is negative. Does the patient have a suspected source of infection? No. Patient's initial sepsis screen is negative. Risk Assessment: Do you want to hurt yourself or someone else? Patient reports no desire to harm self or others. Onset of symptoms is unknown. 02:13 Method Of Arrival: EMS: [facility] lg3 02:13 Acuity: REGINA 3 lg3 Triage Assessment: 02:15 General: Appears in no apparent distress. unkempt, Behavior is anxious, restless. Pain: lg3 Complains of pain in anterior aspect of left upper chest Pain does not radiate. EENT: No deficits noted. No signs and/or symptoms were reported regarding the EENT system. Neuro: Rogel Agitation-Sedation Scale (RASS): +1 Restless Level of Consciousness is awake, alert, obeys commands, Oriented to person, place, time, situation. Cardiovascular: No deficits noted. Reports chest pain, Heart tones S1 S2 present Capillary refill < 3 seconds Clubbing of nail beds is absent JVD is absent Patient's skin is warm and dry. Chest pain is described as vague, is located in left anterior. Respiratory: No deficits noted. Airway is patent Respiratory effort is even, unlabored, Respiratory pattern is regular, symmetrical. GI: No deficits noted. No signs and/or symptoms were reported involving the gastrointestinal system. : No signs and/or symptoms were reported regarding the genitourinary system. Derm: No deficits noted. No signs and/or symptoms reported regarding the dermatologic system. Skin is intact, is healthy with good turgor, Skin is dry, Skin is normal, Skin temperature is warm. Musculoskeletal: No deficits noted. No signs and/or symptoms reported regarding the musculoskeletal system. Circulation, motion, and sensation intact. Range of motion: intact in all extremities. DURABLE MEDICAL EQUIPMENT REPAIRER: 02:15 LMP 07/12/2025, unknown lg3 Historical: - Allergies: 02:15 Amoxicillin; lg3 02:15 Morphine; lg3 02:15 PENICILLINS; lg3 02:15 Bactrim DS; lg3 - PMHx: 02:15 ADD/ADHD; Anxiety; Atrial fibrillation; Depression; depressive disorder; Heart lg3 Arrythmia; PTSD; Schizophrenia; - PSHx: 02:15 section; lg3 - Immunization history:: Adult Immunizations up to date. - Infectious Disease History:: Denies. - Social history:: Smoking status: Patient reports the use of cigarette tobacco products, smokes one-half pack cigarettes per day, Patient/guardian denies using alcohol, street drugs. - Family history:: not pertinent. Screenin:[address] [facility] ED Fall Risk Assessment (Adult) History of falling in the last 3 months, lg3 including since admission No falls in past 3 months (0 pts) Confusion or Disorientation No (0 pts) Intoxicated or Sedated No (0 pts) Impaired Gait No (0 pts) Mobility Assist Device Used No (0 pt) Altered Elimination No (0 pt) Score/Fall Risk Level 0 - 2 = Low Risk Oriented to surroundings, Maintained a safe environment, Educated pt \T\ family on fall prevention, incl call for assistance when getting out of bed, Assessed \T\ reinforced patient's understanding of fall precautions. Abuse screen: Denies threats or abuse. Denies injuries from another. Nutritional screening: No deficits noted. Tuberculosis screening: No symptoms or risk factors identified. Assessment: 02:17 General: see triage assessment. Pain: Complains of pain in anterior aspect of left lg3 upper chest Pain began 2-3 days ago. 02:27 General: pt refusing all interventions at this time. provider notified . lg3 03:07 General: Behavior is agitated, uncooperative. General: still refusing all interventions lg3 at this time. provider notified. Neuro: Rogel Agitation-Sedation Scale (RASS): +2 Agitated. Vital Signs: 02:13 BP 124 / 58; Pulse 87; Resp 16 S; Temp 98.1(O); Pulse Ox 99% on R/A; Weight 72.57 kg lg3 (R); Height 5 ft. 4 in. (R); 03:37 lg3 02:13 Body Mass Index 27.46 (72.57 kg, 162.56 cm) lg3 03:37 pt refused vitals prior to and at time of DC lg3 Mary Coma Score: 03:57 Eye Response: spontaneous(4). Motor Response: obeys commands(6). Verbal Response: sp4 oriented(5). Total: 15. ED Course: 02:12 Patient arrived in ED. lg3 02:13 Yolanda Reyes RN is Primary Nurse. lg3 02:15 Triage completed. lg3 02:15 Arm band placed on right wrist. lg3 02:17 Patient has correct armband on for positive identification. Placed in gown. Bed in low lg3 position. Call light in reach. Side rails up X 1. Client placed on continuous cardiac and pulse oximetry monitoring. NIBP monitoring applied. monitor worker on. Door closed. Noise minimized. Warm blanket given. Pillow given. 02:17 Patient maintains SpO2 saturation greater than 95% on room air. lg3 02:24 Angel Kay MD is Attending Physician. sp4 03:36 No provider procedures requiring assistance completed. Patient did not have IV access lg3 during this emergency room visit. Administered Medications: No medications were administered Medication: 02:17 VIS not applicable for this client. lg3 Outcome: 03:37 Discharged to home ambulatory, lg3 03:37 Condition: stable 03:37 Discharge instructions given to patient, Instructed on discharge instructions, follow up and referral plans. Demonstrated understanding of instructions, 04:01 Discharge ordered by . sp4 04:04 Patient left the ED. lg3 Signatures: Yolanda Reyes RN RN lg3 Angel Kay MD MD sp4 Corrections: (The following items were deleted from the chart) 02:22 02:13 Chief complaint: Patient states: i had low potassium recently and its giving me lg3 anxiety and now i have chest pain. lg3
--- NOTE | 2025-07-19 04:02 | EDPHYS ---
Physician Documentation [facility] Name: Miriam Fried Age: 45 yrs Sex: Female : 1980 Arrival Date: 07/19/2025 Time: 02:10 Bed IW9 Private MD: ED Physician Angel Kay HPI: 07/19 03:56 This 45 yrs old Female presents to ER via EMS with complaints of Anxiety, sp4 Chest Pain. 03:56 45-year-old female presents with moderate anxiety chest pain and report of use of sp4 crystal meth. 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 - Infectious Disease History:: Denies. - Social history:: Smoking status: Patient reports the use of cigarette tobacco products, smokes one-half pack cigarettes per day, Patient/guardian denies using alcohol, street drugs. - Family history:: not pertinent. ROS: 03:56 Constitutional: Negative for fever, chills, and weight loss, positive for anxiety, sp4 positive for chest pain, positive for use of crystal meth 03:56 All other systems are negative, Exam: 03:57 Constitutional: This is a well developed, well nourished patient who is awake, alert, sp4 mild to moderate agitation Head/Face: Normocephalic, atraumatic. Eyes: Pupils equal round and reactive to light, extra-ocular motions intact. Lids and lashes normal. Conjunctiva and sclera are not injected. Cornea within normal limits. Periorbital areas with no swelling, redness, or edema. ENT: Nares patent. No nasal discharge, no septal abnormalities noted. Tympanic membranes are normal and external auditory canals are clear. Oropharynx with no redness, Neck: Trachea midline, no thyromegaly or masses palpated, and no cervical lymphadenopathy. Supple, full range of motion without nuchal rigidity, or vertebral point tenderness. Chest/axilla: Normal chest wall appearance and motion. Nontender with no deformity. No lesions are appreciated. Cardiovascular: Regular rate and rhythm with a normal S1 and S2. No gallops, murmurs, or rubs. No pulse deficits. Respiratory: Lungs have equal breath sounds bilaterally, clear to auscultation and percussion. No rales, rhonchi or wheezes noted. No increased work of breathing, no retractions or nasal flaring. Abdomen/GI: Soft, with normal bowel sounds. No distension or tympany. No guarding or rebound. No evidence of tenderness throughout. Back: No spinal tenderness. No costovertebral tenderness. Skin: Warm, dry with normal turgor. Normal color with no rashes, no lesions, and no evidence of cellulitis. MS/ Extremity: Pulses equal, no cyanosis. Neurovascular intact. Full, normal range of motion. Neuro: Awake and alert, GCS 15, oriented to person, place, time, and situation. Cranial nerves II-XII grossly intact. Motor strength 5/5 in all extremities. Sensory grossly intact. Psych: Awake, alert, with orientation to person, place and time. Behavior, mood, and affect are within normal limits 03:58 ECG was reviewed by the Attending Physician. EKG at 0 215 normal sinus rhythm rate 84, sp4 normal EKG Vital Signs: 02:13 BP 124 / 58; Pulse 87; Resp 16 S; Temp 98.1(O); Pulse Ox 99% on R/A; Weight 72.57 kg lg3 (R); Height 5 ft. 4 in. (R); 03:37 lg3 02:13 Body Mass Index 27.46 (72.57 kg, 162.56 cm) lg3 03:37 pt refused vitals prior to and at time of DC lg3 Mary Coma Score: 03:57 Eye Response: spontaneous(4). Motor Response: obeys commands(6). Verbal Response: sp4 oriented(5). Total: 15. MDM: 02:15 ED course: Patient presents with anxiety chest pain and apparently after use of some sp4 crystal meth. Patient declined IV and declined blood work. EKG is normal. Patient requested to be released from ER. We will release patient with informed discharge. Concern for ACS is low. Suspect anxiety and chest pain is related to drug abuse. 02:25 Medical Screening Exam initiated sp4 03:58 Differential diagnosis: acute pericarditis, chest wall pain, esophagitis, gastritis, sp4 stable angina. 03:58 Data reviewed: vital signs, nurses notes, EMS record, old medical records, EKG. 4 07/19 02:20 Order name: Cardiac monitoring; Complete Time: 02:20 3 07/19 02:20 Order name: EKG - Nurse/Tech; Complete Time: 02:20 3 07/19 02:20 Order name: O2 Per Protocol; Complete Time: 02:20 3 07/19 02:20 Order name: O2 Sat Monitoring; Complete Time: 02:20 3 EC:15 Rate is 84 beats/min. Rhythm is regular, Normal Sinus Rhythm. QRS [place] is Normal. NE sp4 interval is normal. QRS interval is normal. QT interval is normal. No Q waves. T waves are Normal. No ST changes noted. Clinical impression: Normal ECG. Interpreted by me. Reviewed by me. Administered Medications: No medications were administered Disposition Summary: 07/19/25 04:01 Discharge Ordered Notes: Location: Home sp4 Problem: new sp4 Symptoms: have improved sp4 Condition: Stable sp4 Diagnosis - Methamphetamine use disorder, acute anxiety, noncardiac chest pain sp4 Followup: sp4 - With: Private Physician - When: As needed - Reason: Discharge Instructions: - Discharge Summary Sheet sp4 - Medical Screening Exam sp4 Forms: - Patient Portal Instructions sp4 Signatures: Dispatcher [employer] Yolanda Burgos RN RN lg3 Angel Kay MD MD sp4 Corrections: (The following items were deleted from the chart) 02:20 02:20 BASIC METABOLIC PANEL+C.LAB.BRZ ordered. EDMS EDMS 02:20 02:20 CBC+H.LAB.BRZ ordered. EDMS EDMS 02:20 02:20 Troponin High Sensitivity+C.LAB.BRZ ordered. EDMS EDMS 02:20 02:20 Chest Single View+RAD.RAD.BRZ ordered. EDMS EDMS 02:20 02:20 URINE DRUG SCREEN+UC.LAB.BRZ ordered. EDMD EDMS 03:09 02:20 IV Saline Lock ordered. lg3 lg3 03:09 02:20 Labs collected and sent ordered. lg3 lg3
[2025-07-19 04:08] VITALS: BP 124/58; TEMP 98.1; O2SAT 99
== END 2025-07-19 04:04 | disposition home or self-care (01) ==
LOC: ER 02:10
DX: F15.20 Other stimulant dependence, uncomplicated (principal); F41.9 Anxiety disorder, unspecified
CPT/HCPCS: 93005; 99284